=== PATIENT | female | born 1945 | race Caucasian/White ===

== ENCOUNTER 2017-12-21 19:53 | Inpatient (IN) | payer MEDICARE, OTHER ==
[2017-12-21 21:42] LABS: Glucose,Whole Blood 194 mg/dL (75-99)
[2017-12-21 22:06] VITALS: BMI 46.0
[2017-12-21] MEDS ORDERED: FUROSEMIDE 10 MG/ML 2 ML VIAL IV ONE (22:24)
[2017-12-21] MEDS: EZETIMIBE 10 MG TAB PO SCH (23:33)
[2017-12-22 06:02] LABS: Glucose,Whole Blood 179 mg/dL (75-99)
[2017-12-22] MEDS: METOPROLOL TARTRATE 50 MG TAB PO SCH ×3 (06:07→20:10)
[2017-12-22] MEDS: INSULIN DETEMIR 100 UNIT/ML 10 ML VIAL SQ SCH ×2 (06:07→22:49)
[2017-12-22] MEDS: INSULIN ASPART 100 UNIT/ML 1 ML 10 ML VIAL SQ SCH ×4 (06:41→22:49)
[2017-12-22] MEDS: EZETIMIBE 10 MG TAB PO SCH (08:38)
[2017-12-22 11:37] LABS: Glucose,Whole Blood 325 mg/dL (75-99)
[2017-12-22 11:44] LABS: Calcium 9.4 mg/dL (8.4-10.2); Potassium 5.5 mmol/L (3.5-5.1)
[2017-12-22 11:46] LABS: Basophils # (A) 0.1 k/uL (0-0.2); Basophils % (A) 1 %; Eosinophils # (A) 0.1 k/uL (0-0.7); Eosinophils % (A) 2 %; HCT 33.6 % (34.0-46.0); HGB 10.6 gm/dL (11.4-16.0); Hypochromasia Slight; Lymphocytes # (A) 0.9 k/uL (1.0-4.8); Lymphocytes % (A) 11 %; MCH 31.3 pg (25.0-35.0); MCHC 31.5 g/dL (31.0-37.0); MCV 99.3 fL (80.0-100.0); Macrocytosis Slight; Monocytes # (A) 0.6 k/uL (0-1.0); Monocytes % (A) 7 %; Neutrophils # (A) 6.3 k/uL (1.3-7.7); Neutrophils % (A) 78 %; Platelet Count 269 k/uL (150-450); RBC 3.38 m/uL (3.80-5.40); RDW 15.8 % (11.5-15.5); WBC 8.1 k/uL (3.8-10.6)
--- NOTE | 2017-12-22 13:02 | P.HPIM ---
History of Present Illness This is a pleasant 72 years old female with past medical history of CHF, atrial fibrillation, DM, DVT, CVA/TIA, GERD, hyperlipidemia, hypertension, OA, and renal disease, S/P pacemaker to presents because of syncope, this is the 4th time in a month, And yesterday when she was getting [place] from the [place] with her boyfriend at the door step she folds warmth and then she passed out briefly for 1 or 2 minutes, and she will call immediately with no confusion. During this time she denies any chest pain, shortness of breath, no dizziness, no palpitation, no seizure-like activity, no urine or bowel incontinence, no tongue biting. She had this episodes before and she's been prescribed meclizine by her PCP which was helping her as per patient. She sees Dr. Jake Connor from cardiology as an outpatient On admission patient was found to be in acute renal failure with creatinine 2.87 and hyperkalemia 5.5, hemoglobin 10.6, WBC 8.1, d-dimer at 0.9. Patient states she has kidney disease and she says it's is 4 which is questionable for stage IV. she says she goes to [facility]. We'll try to Get the records Review of Systems CONSTITUTIONAL: No fever, no malaise, no fatigue. HEENT: No recent visual problems or hearing problems. Denied any sore throat. CARDIOVASCULAR: No orthopnea, PND, no palpitations, no syncope. PULMONARY: No shortness of breath, no cough, no hemoptysis. GASTROINTESTINAL: No diarrhea, no nausea, no vomiting, no abdominal pain. Normoactive bowel sounds. NEUROLOGICAL: No headaches, no weakness, no numbness. HEMATOLOGICAL: Denies any bleeding or petechiae. GENITOURINARY: Denies any burning micturition, frequency, or urgency. MUSCULOSKELETAL/RHEUMATOLOGICAL: Denies any joint pain, swelling, or any muscle pain. ENDOCRINE: Denies any polyuria or polydipsia. Past Medical History Past Medical History: Atrial Fibrillation, Asthma, Heart Failure, CVA/TIA, Diabetes Mellitus, Deep Vein Thrombosis (DVT), Eye Disorder, GERD/Reflux, Hyperlipidemia, Hypertension, Osteoarthritis (OA), Renal Disease History of Any Multi-Drug Resistant Organisms: None Reported Past Surgical History: Adenoidectomy, Appendectomy, Cholecystectomy, Pacemaker, Tonsillectomy Past Anesthesia/Blood Transfusion Reactions: No Reported Reaction Type of Cardiac Device: Permanent Pacemaker Device Placement Date:: 2016 Past Psychological History: No Psychological Hx Reported Smoking Status: Never smoker Past Alcohol Use History: None Reported Past Drug Use History: None Reported - Past Family History Father Family Medical History: Myocardial Infarction ([place]) Additional Family Medical History / Comment(s): RHEUMATIC FEVER Medications and Allergies Home Medications Medication Instructions Recorded Confirmed Type Acetaminophen [Tylenol Extra 500 mg PO Q6HR PRN 12/22/17 12/22/17 History Strength] Apixaban [Eliquis] 5 mg PO BID 12/22/17 12/22/17 History Ascorbic Acid [Vitamin C] 500 mg PO DAILY 12/22/17 12/22/17 History Bumetanide [BUMEX] 0.5 mg PO DAILY 12/22/17 12/22/17 History Cholecalciferol [Vitamin D3] 1,000 unit PO DAILY 12/22/17 12/22/17 History Cinnamon Bark [Cinnamon] 500 mg PO BID 12/22/17 12/22/17 History Ezetimibe [Zetia] 10 mg PO HS 12/22/17 12/22/17 History Ferrous Sulfate [Feosol] 325 mg PO DAILY 12/22/17 12/22/17 History Fish Oil/Dha/Epa [Fish Oil 1,200 1 cap PO DAILY 12/22/17 12/22/17 History mg Fish Oil] Insulin Aspart [NovoLOG 22 unit SQ TID 12/22/17 12/22/17 History (formulary)] Insulin Detemir [Levemir] 50 unit SQ DAILY 12/22/17 12/22/17 History Meclizine HCl 25 mg PO DAILY 12/22/17 12/22/17 History Metoprolol Tartrate [Lopressor] 50 mg PO BID 12/22/17 12/22/17 History Multivitamin with Iron 1 tab PO DAILY 12/22/17 12/22/17 History [Multivitamins with Iron] Ranitidine HCl [Zantac] 150 mg PO BID 12/22/17 12/22/17 History Sevelamer [Renvela] 2,400 mg PO TID 12/22/17 12/22/17 History Vitamin E (Dl,Tocopheryl Acet) 400 unit PO DAILY 12/22/17 12/22/17 History [Vitamin E] traMADol HCl [Ultram] 50 mg PO Q12H PRN 12/22/17 12/22/17 History Allergies Allergy/AdvReac Type Severity Reaction Status Date / Time LISINOPRIL Allergy Unknown Uncoded 12/21/17 21:46 STATINS AdvReac Unknown Uncoded 12/21/17 21:46 Physical Exam Vitals: Vital Signs Temp Pulse Resp BP Pulse Ox 12/22/17 08:00 70 20 159/67 94 L 12/22/17 04:00 97.6 F 70 18 129/66 92 L 12/22/17 00:00 97.9 F 70 17 139/72 97 12/21/17 21:38 97.0 F L 69 18 174/73 98 Intake and Output 12/21/17 12/22/17 12/22/17 22:59 06:59 14:59 Output Total 200 400 Balance -200 -400 Output: Urine 200 400 Other: Voiding Method Urinal Urinal Weight 116.5 kg 116.5 kg GENERAL: The patient is alert and oriented x3, not in any acute distress. Well developed, well nourished. HEENT: Pupils are round and equally reacting to light. EOMI. No scleral icterus. No conjunctival pallor. Normocephalic, atraumatic. No pharyngeal erythema. No thyromegaly. CARDIOVASCULAR: S1 and S2 present. No murmurs, rubs, or gallops. PULMONARY: Chest is clear to auscultation, no wheezing or crackles. ABDOMEN: Soft, nontender, nondistended, normoactive bowel sounds. No palpable organomegaly. MUSCULOSKELETAL: No joint swelling or deformity. EXTREMITIES: No cyanosis, clubbing, or pedal edema. NEUROLOGICAL: Gross neurological examination did not reveal any focal deficits. SKIN: No rashes. Results CBC & Chem 7: 12/22/17 10:23 12/22/17 10:23 Labs: Abnormal Lab Results - Last 24 Hours (Table) 12/21/17 12/22/17 12/22/17 Range/Units 21:40 06:00 10:23 RBC (3.80-5.40) m/uL Hgb (11.4-16.0) gm/dL Hct (34.0-46.0) % RDW (11.5-15.5) % Lymphocytes # (1.0-4.8) k/uL D-Dimer 0.99 H (<0.60) mg/L FEU Potassium (3.5-5.1) mmol/L Carbon Dioxide (22-30) mmol/L BUN (7-17) mg/dL Creatinine (0.52-1.04) mg/dL Glucose (74-99) mg/dL POC Glucose (mg/dL) 194 H 179 H (75-99) mg/dL 12/22/17 12/22/17 12/22/17 Range/Units 10:23 10:23 11:35 RBC 3.38 L (3.80-5.40) m/uL Hgb 10.6 L (11.4-16.0) gm/dL Hct 33.6 L (34.0-46.0) % RDW 15.8 H (11.5-15.5) % Lymphocytes # 0.9 L (1.0-4.8) k/uL D-Dimer (<0.60) mg/L FEU Potassium 5.5 H (3.5-5.1) mmol/L Carbon Dioxide 20 L (22-30) mmol/L BUN 61 H (7-17) mg/dL Creatinine 2.87 H (0.52-1.04) mg/dL Glucose 308 H (74-99) mg/dL POC Glucose (mg/dL) 325 H (75-99) mg/dL Thrombosis Risk Factor Assmnt - Choose All That Apply Each Factor Represents 1 point: Obesity (BMI >25) Each Risk Factor Represents 2 Points: Age 61-74 years Each Risk Factor Represents 3 Points: History of DVT/PE Thrombosis Risk Factor Assessment Total Risk Factor Score: 6 Thrombosis Risk Factor Assessment Level: High Risk Assessment and Plan Plan: -Recurrent syncope, admitted to the general medical floor, we'll do workup with echo. Call cardiology consult, continue with telemetry -Acute renal phalanx with creatinine high 2.8, with hyperkalemia. Unknown baseline creatinine. We will start on IV fluids, sent for urine analysis give Kayexalate follow-up potassium level. Get the records from [facility]. Follow-up potassium level -Positive d-dimer and high at 0.9, we'll check for VQ scan in view of acute renal failure she is not a good candidate for CTPA. Also we'll check US of lower extremities. She is already on liquids 5 mg by mouth twice a day -Hyperlipidemia, continue same treatment -Hypertension continue with metoprolol and hold Bumex -DM continue with Levemir 50 units daily and NovoLog 22 units 3 times a day DVT prophylaxis she is already on liquids GI prophylaxis and Zantac At baseline patient uses a walker Prognosis is guarded given severity and complex comorbidity
[2017-12-22] MEDS ORDERED: SODIUM POLYSTYRENE SULFONATE 15 GM/60 ML BOTTLE PO STA (14:44)
--- NOTE | 2017-12-22 16:08 | US ---
EXAMINATION TYPE: US venous doppler duplex LE DATE OF EXAM: 12/22/2017 3:47 PM COMPARISON: NONE CLINICAL HISTORY: leg swelling; elevated d-dimer. SIDE PERFORMED: Bilateral TECHNIQUE: The lower extremity deep venous system is examined utilizing real time linear array sonog aliyah with graded compression, doppler sonography and color-flow sonography. VESSELS IMAGED: External Iliac Vein (EIV) Common Femoral Vein Deep Femoral Vein Greater Saphenous Vein * Femoral Vein Popliteal Vein Small Saphenous Vein * Proximal Calf Veins (* superficial vessels) patient did not tolerate compression images well, large patient body habitus. Right Leg: Negative for DVT Left Leg: Negative for DVT IMPRESSION: 1. Bilateral lower extremity ultrasound negative for deep venous thrombosis.
[2017-12-22 16:43] LABS: Glucose,Whole Blood 268 mg/dL (75-99)
[2017-12-22] MEDS ORDERED: ACETAMINOPHEN TAB 500 MG TAB PO PRN (18:36)
[2017-12-22] MEDS: HEPARIN SODIUM,PORCINE 5,000 UNIT/ML 1 ML VIAL SQ SCH (20:13)
[2017-12-22 21:15] LABS: Glucose,Whole Blood 247 mg/dL (75-99)
--- NOTE | 2017-12-22 21:29 | CONS ---
CONSULTATION Mrs. Ashish Paul is a 72-year-old lady with a history of hypertension, hypercholesterolemia, type 2 diabetes mellitus with chronic kidney disease, and also has history of a permanent pacemaker and the reason for the pacemaker is unclear. She sees Dr. Alvarado on a regular basis in the office. She came into the hospital with complaints of having an episode of syncope. Apparently her friend who was driving her in the car yesterday had her get down from the car and go to her house. She walked a few steps. She felt very warm, dizzy, lightheaded and then she could not move anymore. She did not really lose consciousness. Then EMS was called and she was brought into the hospital. It appears that after arrival all her symptoms have resolved. She is feeling comfortable. Denies any chest discomfort. Has no symptoms at all. At the time of my evaluation, she is resting comfortably and history is being provided by her boyfriend/ and the patient also volunteers information but she insists that she is feeling well and that she did not pass out yesterday, she just felt weak and tired. After she arrived to the hospital she had some laboratory data performed which revealed a low potassium but that was being supplemented. She also had a D-dimer that was elevated borderline at 0.9. She is resting comfortably without symptoms. PAST MEDICAL HISTORY: 1. She has history of underlying atrial fibrillation which is paroxysmal, takes Eliquis and she also has an underlying pacemaker. 2. History of type 2 diabetes with chronic CKD. 3. Hypertension. 4. Hyperlipidemia. 5. Osteoarthritis. CURRENT MEDICATIONS: Home medications include Eliquis 5 mg b.i.d. She takes Levemir and NovoLog insulin. She also takes some vitamin supplements, metoprolol 50 mg b.i.d., ranitidine and also takes some Zetia and tramadol. ALLERGIES: She is allergic to lisinopril and this is some allergy to statins. EXAMINATION: Blood pressure is 130/78, pulse rate is 70 per minute. She does not have any orthostatic changes. HEENT: Unremarkable. Fundus was not examined by me. NECK: Supple there is JVD of 1 cm. No carotid bruit. Heart exam reveals S1, S2. There is a short systolic murmur. No gallops. Lungs are clear. Abdomen is distended. Lower extremities reveal diminished pulses. No edema. Central nervous system is normal. EKG revealed what seems to be a paced rhythm. LABORATORY DATA: Reveals that her initial troponin is normal. D-dimer has been ordered and it came back at 0.9, which is moderate but not significant. Creatinine is 2.87. IMPRESSION: 1. Near syncopal spell, probably dehydration. 2. History of atrial fibrillation. 3. Sick sinus syndrome with a permanent pacemaker. 4. Hypertension. 5. Type 2 diabetes with chronic kidney disease. RECOMMENDATIONS: I am recommending that we discontinue Eliquis in view of the fact her renal function is quite abnormal. She is being considered for dialysis. I am recommending we will obtain a CBC, BMP, check an echocardiogram, place her on subcu heparin and based on clinical course, which will include a telemetry, I will make further recommendations and review the old chart. I discussed my thoughts in detail with the patient and her friend. Thank you very much for the consultation. MAYA / DAYAMI: [id number] /
[2017-12-23 06:09] LABS: Glucose,Whole Blood 192 mg/dL (75-99)
[2017-12-23] MEDS: INSULIN ASPART 100 UNIT/ML 1 ML 10 ML VIAL SQ SCH ×7 (06:55→21:38)
[2017-12-23] MEDS: SEVELAMER 800 MG TAB PO SCH ×3 (06:59→17:09)
[2017-12-23] MEDS: BUMETANIDE 0.5 MG TABLET PO SCH (09:23)
[2017-12-23] MEDS: EZETIMIBE 10 MG TAB PO SCH (09:23)
[2017-12-23] MEDS: MECLIZINE 25 MG TAB PO SCH (09:23)
[2017-12-23] MEDS: HEPARIN SODIUM,PORCINE 5,000 UNIT/ML 1 ML VIAL SQ SCH (09:23)
[2017-12-23] MEDS: METOPROLOL TARTRATE 50 MG TAB PO SCH ×2 (09:23→20:46)
[2017-12-23 11:43] LABS: Glucose,Whole Blood 77 mg/dL (75-99)
[2017-12-23] MEDS: FERROUS SULFATE 325 MG TAB PO SCH (12:53)
[2017-12-23] MEDS: CHOLECALCIFEROL 1,000 UNIT TAB PO SCH (12:53)
[2017-12-23 14:56] LABS: Basophils # (A) 0.1 k/uL (0-0.2); Basophils % (A) 1 %; Eosinophils # (A) 0.1 k/uL (0-0.7); Eosinophils % (A) 2 %; HCT 33.3 % (34.0-46.0); HGB 10.5 gm/dL (11.4-16.0); Hypochromasia Slight; Lymphocytes # (A) 1.1 k/uL (1.0-4.8); Lymphocytes % (A) 15 %; MCHC 31.7 g/dL (31.0-37.0); MCV 97.8 fL (80.0-100.0); Macrocytosis Slight; Mean Platelet Volume 6.6; Monocytes # (A) 0.5 k/uL (0-1.0); Monocytes % (A) 7 %; Neutrophils # (A) 5.2 k/uL (1.3-7.7); Neutrophils % (A) 72 %; Platelet Count 264 k/uL (150-450); RDW 15.9 % (11.5-15.5); WBC 7.1 k/uL (3.8-10.6)
[2017-12-23 15:08] LABS: Calcium 9.2 mg/dL (8.4-10.2); Potassium 4.6 mmol/L (3.5-5.1)
--- NOTE | 2017-12-23 16:18 | PN ---
PROGRESS NOTE Mrs. Paul is feeling better today. She has no further episodes of dizziness or syncope. She remains in a paced rhythm. Vital signs are stable. There is JVD of 1 cm note. S1-S2 are heard normally. Short systolic murmur noted. Lungs are clear. Lower extremities revealed bilateral mild edema. Central nervous system is normal. Plan is to increase activity and if she does well, we can discharge her. We have to check her potassium level since there was some hyperkalemia issues yesterday. I am recommending that we check the potassium level and if this is good, we can increase activity and then plan for discharge in the next 24 hours. I discussed my thoughts in detail with the patient and her friend who was here. OVIL / IJN: [id number] /
[2017-12-23 16:58] LABS: Glucose,Whole Blood 183 mg/dL (75-99)
[2017-12-23] MEDS: ELIQUIS 2.5 MG PO SCH (20:46)
[2017-12-23 21:26] LABS: Glucose,Whole Blood 245 mg/dL (75-99)
[2017-12-23] MEDS: INSULIN DETEMIR 100 UNIT/ML 10 ML VIAL SQ SCH (21:38)
--- NOTE | 2017-12-23 21:57 | P.PN ---
Subjective This is a pleasant 72 years old female with past medical history of CHF, atrial fibrillation, DM, DVT, CVA/TIA, GERD, hyperlipidemia, hypertension, OA, and renal disease, S/P pacemaker to presents because of syncope, this is the 4th time in a month, And [place] & at the door step she felt warmth and then she passed out briefly for 1 or 2 minutes, and she wake up immediately with no confusion. During this time she denies any chest pain, shortness of breath, no dizziness, no palpitation, no seizure-like activity, no urine or bowel incontinence, no tongue biting. She had this episodes before and she's been prescribed meclizine by her PCP which was helping her as per patient. She sees Dr. Jake Connor from cardiology as an outpatient On admission patient was found to be in acute renal failure with creatinine 2.87 and hyperkalemia 5.5, hemoglobin 10.6, WBC 8.1, d-dimer at 0.9. Patient states she has kidney disease and she says it's is 4 which is questionable for stage IV. she says she goes to [facility]. We'll try to Get the records 12/23/2017 pt is lying in bed with no not in distress, work up for syncope is still ongoing however no more episodes of syncope or near-syncope, pt has positive D- Dimer on presentation however she is already on Eliquis her dose is adjusted as per renal function , doppler of LE is negative for DVT. renal function is not improving , could be possible CKD, advanced stage , discussed with staff to get records from [facility] ROS CONSTITUTIONAL: No fever, no malaise, no fatigue. HEENT: No recent visual problems or hearing problems. Denied any sore throat. CARDIOVASCULAR: No orthopnea, PND, no palpitations, no syncope. PULMONARY: No shortness of breath, no cough, no hemoptysis. GASTROINTESTINAL: No diarrhea, no nausea, no vomiting, no abdominal pain. Normoactive bowel sounds. NEUROLOGICAL: No headaches, no weakness, no numbness. HEMATOLOGICAL: Denies any bleeding or petechiae. GENITOURINARY: Denies any burning micturition, frequency, or urgency. MUSCULOSKELETAL/RHEUMATOLOGICAL: Denies any joint pain, swelling, or any muscle pain. ENDOCRINE: Denies any polyuria or polydipsia. Objective - Vital Signs Vital signs: Vital Signs Temp 96.9 F L 12/23/17 15:57 Pulse 70 12/23/17 15:57 Resp 18 12/23/17 15:57 BP 163/79 12/23/17 15:57 Pulse Ox 93 L 12/23/17 15:57 Intake & Output 12/23/17 12/23/17 12/24/17 06:59 18:59 06:59 Intake Total 1320 Output Total 200 Balance 1120 Weight 116.2 kg Intake: Oral 1320 Output: Urine 200 Other: Voiding Method Urinal Urinal # Voids 2 1 - Exam GENERAL: The patient is alert and oriented x3, not in any acute distress. Well developed, well nourished. HEENT: Pupils are round and equally reacting to light. EOMI. No scleral icterus. No conjunctival pallor. Normocephalic, atraumatic. No pharyngeal erythema. No thyromegaly. CARDIOVASCULAR: S1 and S2 present. No murmurs, rubs, or gallops. PULMONARY: Chest is clear to auscultation, no wheezing or crackles. ABDOMEN: Soft, nontender, nondistended, normoactive bowel sounds. No palpable organomegaly. MUSCULOSKELETAL: No joint swelling or deformity. EXTREMITIES: No cyanosis, clubbing, or pedal edema. NEUROLOGICAL: Gross neurological examination did not reveal any focal deficits. SKIN: No rashes. - Labs CBC & Chem 7: 12/23/17 14:44 12/23/17 14:44 Labs: Abnormal Lab Results - Last 24 Hours (Table) 12/23/17 12/23/17 12/23/17 Range/Units 06:05 14:44 14:44 RBC 3.40 L (3.80-5.40) m/uL Hgb 10.5 L (11.4-16.0) gm/dL Hct 33.3 L (34.0-46.0) % RDW 15.9 H (11.5-15.5) % Carbon Dioxide 21 L (22-30) mmol/L BUN 58 H (7-17) mg/dL Creatinine 2.60 H (0.52-1.04) mg/dL Glucose 134 H (74-99) mg/dL POC Glucose (mg/dL) 192 H (75-99) mg/dL 12/23/17 Range/Units 16:54 RBC (3.80-5.40) m/uL Hgb (11.4-16.0) gm/dL Hct (34.0-46.0) % RDW (11.5-15.5) % Carbon Dioxide (22-30) mmol/L BUN (7-17) mg/dL Creatinine (0.52-1.04) mg/dL Glucose (74-99) mg/dL POC Glucose (mg/dL) 183 H (75-99) mg/dL Assessment and Plan Plan: -Recurrent syncope, admitted to the general medical floor, we'll do workup with echo. Call cardiology consult, continue with telemetry -Acute renal failure vs advanced CKD with creatinine high 2.8, with hyperkalemia (resolved). Unknown baseline creatinine. sent for urine analysis give Kayexalate follow-up potassium level. Get the records from [facility]. Follow-up potassium level -Positive d-dimer and high at 0.9, US of lower extremities: no DVT She is already on liquids 5 mg adjusted to 2.5 mg by mouth twice a day as per renal function -Hyperlipidemia, continue same treatment -Hypertension continue with metoprolol and hold Bumex -DM continue with Levemir 50 units daily and NovoLog 22 units 3 times a day DVT prophylaxis she is already on liquids GI prophylaxis and Zantac At baseline patient uses a walker Prognosis is guarded given severity and complex comorbidity
[2017-12-24 01:00] LABS: Appearance,Urine Cloudy (Clear); Bilirubin,Urine Negative (Negative); Blood,Urine Small (Negative); Color,Urine Light Yellow; Glucose,Urine (UA) 3+ (Negative); Hyaline Casts,Urine 1 /lpf (0-2); Ketones,Urine Negative (Negative); Leukocyte Esterase,Urine Large (Negative); Mucus,Urine Rare /hpf; Nitrite,Urine Negative (Negative); Protein,Urine 2+ (Negative); RBC,Urine 11 /hpf (0-5); Specific Gravity,Urine 1.009 (1.001-1.035); Squamous Epithelial Cell,Urine <1 /hpf (0-4); Urobilinogen,Urine <2.0 mg/dL (<2.0); WBC,Urine >182 /hpf (0-5)
[2017-12-24 05:58] LABS: Basophils % (A) 1 %; Eosinophils # (A) 0.2 k/uL (0-0.7); Eosinophils % (A) 2 %; HGB 10.1 gm/dL (11.4-16.0); Lymphocytes # (A) 1.2 k/uL (1.0-4.8); Lymphocytes % (A) 18 %; MCH 30.7 pg (25.0-35.0); MCHC 31.5 g/dL (31.0-37.0); MCV 97.3 fL (80.0-100.0); Macrocytosis Slight; Mean Platelet Volume 6.8; Monocytes # (A) 0.6 k/uL (0-1.0); Monocytes % (A) 9 %; Neutrophils # (A) 4.7 k/uL (1.3-7.7); Neutrophils % (A) 69 %; Platelet Count 257 k/uL (150-450); RBC 3.29 m/uL (3.80-5.40); RDW 15.9 % (11.5-15.5); WBC 6.9 k/uL (3.8-10.6)
[2017-12-24 06:06] LABS: Glucose,Whole Blood 161 mg/dL (75-99)
[2017-12-24 06:11] LABS: Calcium 9.2 mg/dL (8.4-10.2); Potassium 4.4 mmol/L (3.5-5.1)
[2017-12-24] MEDS: SEVELAMER 800 MG TAB PO SCH ×2 (06:36→12:14)
[2017-12-24] MEDS: INSULIN ASPART 100 UNIT/ML 1 ML 10 ML VIAL SQ SCH ×4 (07:02→12:05)
[2017-12-24] MEDS: EZETIMIBE 10 MG TAB PO SCH (08:07)
[2017-12-24] MEDS: BUMETANIDE 0.5 MG TABLET PO SCH (08:07)
[2017-12-24] MEDS: FERROUS SULFATE 325 MG TAB PO SCH (08:07)
[2017-12-24] MEDS: MECLIZINE 25 MG TAB PO SCH (08:08)
[2017-12-24] MEDS: CHOLECALCIFEROL 1,000 UNIT TAB PO SCH (08:08)
[2017-12-24] MEDS: ELIQUIS 2.5 MG PO SCH (08:08)
[2017-12-24] MEDS: METOPROLOL TARTRATE 50 MG TAB PO SCH (08:08)
[2017-12-24 08:30] VITALS: RESP 18; TEMP 97.5
--- NOTE | 2017-12-24 09:37 | P.NPCON ---
History of Present Illness - Reason for Consult chronic renal failure - History of Present Illness Reason for consultation: Chronic kidney disease History of present illness: Patient is a 72-year-old female seen in renal consultation for chronic kidney disease. Patient has chronic kidney disease stage IV secondary to diabetic kidney disease. Unclear as to what her baseline creatinine is. It has been stable in the range of 2.6-2.8 this admission. Patient follows with a aeronautical design engineer out of [place], [place]. Patient presented to the hospital due to a syncopal episode. Patient states she was in a parking lot and felt quite lightheaded and dizzy. Patient states she did lose her consciousness but didn' t fall as her boyfriend caught her. She was subsequently brought to the hospital. Her blood pressures have been stable. She is maintained on Bumex 0.5 mg daily. She denies any hematuria or dysuria. Admits to good urine output. Oral intake is good. No vomiting or diarrhea. Denies use of NSAIDs. Patient did ambulate this morning and denied any lightheadedness or dizziness. She's feeling better today. Feels she got dehydrated due to heat outside. Vital signs are stable. General: The patient appeared well nourished and normally developed. HEENT: Head exam is unremarkable. Neck is without jugular venous distension. LUNGS: Lungs are clear to auscultation and percussion. Breath sounds decreased. HEART: Rate and Rhythm are regular. First and second heart sounds normal. No murmurs, rubs or gallops. ABDOMEN: Abdominal exam reveals normal bowel sounds. Non-tender and non- distended. No evidence of peritonitis. EXTREMITITES: No clubbing, cyanosis, or edema. Past Medical History Past Medical History: Atrial Fibrillation, Asthma, Heart Failure, CVA/TIA, Diabetes Mellitus, Deep Vein Thrombosis (DVT), Eye Disorder, GERD/Reflux, Hyperlipidemia, Hypertension, Osteoarthritis (OA), Renal Disease History of Any Multi-Drug Resistant Organisms: None Reported Past Surgical History: Adenoidectomy, Appendectomy, Cholecystectomy, Pacemaker, Tonsillectomy Past Anesthesia/Blood Transfusion Reactions: No Reported Reaction Type of Cardiac Device: Permanent Pacemaker Device Placement Date:: 2016 Past Psychological History: No Psychological Hx Reported Smoking Status: Never smoker Past Alcohol Use History: None Reported Past Drug Use History: None Reported - Past Family History Father Family Medical History: Myocardial Infarction ([place]) Additional Family Medical History / Comment(s): RHEUMATIC FEVER Medications and Allergies Home Medications Medication Instructions Recorded Confirmed Type Acetaminophen [Tylenol Extra 500 mg PO Q6HR PRN 12/22/17 12/22/17 History Strength] Apixaban [Eliquis] 5 mg PO BID 12/22/17 12/22/17 History Ascorbic Acid [Vitamin C] 500 mg PO DAILY 12/22/17 12/22/17 History Bumetanide [BUMEX] 0.5 mg PO DAILY 12/22/17 12/22/17 History Cholecalciferol [Vitamin D3] 1,000 unit PO DAILY 12/22/17 12/22/17 History Cinnamon Bark [Cinnamon] 500 mg PO BID 12/22/17 12/22/17 History Ezetimibe [Zetia] 10 mg PO HS 12/22/17 12/22/17 History Ferrous Sulfate [Feosol] 325 mg PO DAILY 12/22/17 12/22/17 History Fish Oil/Dha/Epa [Fish Oil 1,200 1 cap PO DAILY 12/22/17 12/22/17 History mg Fish Oil] Insulin Aspart [NovoLOG 22 unit SQ TID 12/22/17 12/22/17 History (formulary)] Insulin Detemir [Levemir] 50 unit SQ DAILY 12/22/17 12/22/17 History Meclizine HCl 25 mg PO DAILY 12/22/17 12/22/17 History Metoprolol Tartrate [Lopressor] 50 mg PO BID 12/22/17 12/22/17 History Multivitamin with Iron 1 tab PO DAILY 12/22/17 12/22/17 History [Multivitamins with Iron] Ranitidine HCl [Zantac] 150 mg PO BID 12/22/17 12/22/17 History Sevelamer [Renvela] 2,400 mg PO TID 12/22/17 12/22/17 History Vitamin E (Dl,Tocopheryl Acet) 400 unit PO DAILY 12/22/17 12/22/17 History [Vitamin E] traMADol HCl [Ultram] 50 mg PO Q12H PRN 12/22/17 12/22/17 History Allergies Allergy/AdvReac Type Severity Reaction Status Date / Time LISINOPRIL Allergy Unknown Uncoded 12/21/17 21:46 STATINS AdvReac Unknown Uncoded 12/21/17 21:46 Physical Exam Vitals: Vital Signs Temp Pulse Resp BP Pulse Ox 12/24/17 08:20 95 12/24/17 08:08 97.5 F L 70 18 125/64 95 12/24/17 03:50 70 16 12/24/17 03:49 97.0 F L 70 16 131/64 95 12/24/17 00:00 97.3 F L 71 16 124/67 92 L 12/23/17 20:00 97.0 F L 70 19 140/67 92 L 12/23/17 15:57 96.9 F L 70 18 163/79 93 L 12/23/17 12:00 68 20 141/70 93 L Intake and Output 12/23/17 12/24/17 12/24/17 22:59 06:59 14:59 Intake Total 480 120 Output Total 250 350 Balance 230 -350 120 Intake: Oral 480 120 Output: Urine 250 350 Other: Voiding Method Toilet Toilet Toilet # Voids 1 1 Weight 114.9 kg Results - Lab Results Most recent lab results Calcium 9.2 mg/dL (8.4-10.2) 12/24/17 05:38 12/24/17 05:38 12/24/17 05:38 Assessment and Plan Plan: Assessment: 1. Chronic kidney disease stage IV secondary to diabetic kidney disease. Unknown baseline creatinine. Currently stable in the range of 2.6-2.8. 2. Insulin-dependent diabetes mellitus. 3. Chronic kidney disease mineral bone disease maintained on Renvela. 4. Hyperkalemia on admission. Now resolved. 5. Anemia of chronic kidney disease. Hemoglobin at goal. 6. Syncope likely related to dehydration. No evidence of hypotension. Appears euvolemic at this time. Plan: Maintain Bumex 0.5 mg once daily. Check urine culture. Avoid nephrotoxic agents and hypotensive episodes. Anticipate discharge soon. She will need to follow-up with her aeronautical design engineer as an outpatient in the next 1-2 weeks. No urgent need for renal replacement therapy at this time. Thank you for the consultation. I will continue to follow the patient with you during her hospital stay.
[2017-12-24 11:55] VITALS: BP 114/62; PULSE 64
[2017-12-24 12:09] LABS: Glucose,Whole Blood 83 mg/dL (75-99)
--- NOTE | 2017-12-24 16:50 | P.DS ---
Providers Date of admission: 12/21/17 21:28 Attending physician: Yunier Pino Consults: 12/21/17 23:35 Consult Physician Routine Consulting Provider: Rodney Alvarado Consult Reason/Comments: CHF Do you want consulting provider notified?: Yes, Notify in am 12/24/17 07:53 Consult Physician Routine Consulting Provider: Elo Archer Consult Reason/Comments: CKD Do you want consulting provider notified?: Yes Primary care physician: Marc [facility] Course: Patient came in with near syncopal episode found to have noncardiac pulmonary edema probably secondary to kidney dysfunction patient was evaluated by cardiology and nephrology. They're recommending Bumex to be continued at present dose patient pulmonary edema appears to have improved respiratory status improved. Patient does have history of atrial fibrillation on Eliquis is presently being discontinued as recommended by cardiology because of falls and poor renal function and they're recommending 81 mg of aspirin. PT and OT evaluated the patient and there is no recommendation for subacute rehabilitation placement from their perspective. Patient blood sugars are coming down because of which I'm changing the insulin dosing appears to have been noncompliant with medication recommendation because of which I believe she will benefit from home care and the patient is agreeable, will set up home care for her. Exam GENERAL: The patient is alert and oriented x3, not in any acute distress. Well developed, well nourished. HEENT: Pupils are round and equally reacting to light. EOMI. No scleral icterus. No conjunctival pallor. Normocephalic, atraumatic. No pharyngeal erythema. No thyromegaly. CARDIOVASCULAR: S1 and S2 present. No murmurs, rubs, or gallops. PULMONARY: Chest is clear to auscultation, no wheezing or crackles. ABDOMEN: Soft, nontender, nondistended, normoactive bowel sounds. No palpable organomegaly. MUSCULOSKELETAL: No joint swelling or deformity. EXTREMITIES: No cyanosis, clubbing, or pedal edema. NEUROLOGICAL: Gross neurological examination did not reveal any focal deficits. SKIN: No rashes. Assessment and Plan Plan: -Near syncopal episode,: Work up and management as mentioned above -Chronic kidney disease stage IV -Positive d-dimer and high at 0.9, US of lower extremities: no DVT -Hyperlipidemia, continue same treatment -Hypertension continue with metoprolol and hold Bumex -DM type II management as mentioned above Patient Condition at Discharge: Stable Plan - Discharge Summary New Discharge Prescriptions: New Aspirin 81 mg PO DAILY #30 chewable Continue Ezetimibe [Zetia] 10 mg PO HS traMADol HCl [Ultram] 50 mg PO Q12H PRN PRN Reason: Pain Vitamin E (Dl,Tocopheryl Acet) [Vitamin E] 400 unit PO DAILY Sevelamer [Renvela] 2,400 mg PO TID Ranitidine HCl [Zantac] 150 mg PO BID Cholecalciferol [Vitamin D3] 1,000 unit PO DAILY Ascorbic Acid [Vitamin C] 500 mg PO DAILY Multivitamin with Iron [Multivitamins with Iron] 1 tab PO DAILY Fish Oil/Dha/Epa [Fish Oil 1,200 mg Fish Oil] 1 cap PO DAILY Metoprolol Tartrate [Lopressor] 50 mg PO BID Meclizine HCl 25 mg PO DAILY Ferrous Sulfate [Iron (65 MG Elemental)] 325 mg PO DAILY Cinnamon Bark [Cinnamon] 500 mg PO BID Bumetanide [BUMEX] 0.5 mg PO DAILY Acetaminophen [Tylenol Extra Strength] 500 mg PO Q6HR PRN PRN Reason: Pain Changed Insulin Aspart [NovoLOG (formulary)] 15 unit SQ TID #0 Insulin Detemir [Levemir] 40 unit SQ DAILY #0 Discontinued Apixaban [Eliquis] 5 mg PO BID Discharge Medication List Acetaminophen [Tylenol Extra Strength] 500 mg PO Q6HR PRN 12/22/17 [History] Ascorbic Acid [Vitamin C] 500 mg PO DAILY 12/22/17 [History] Bumetanide [BUMEX] 0.5 mg PO DAILY 12/22/17 [History] Cholecalciferol [Vitamin D3] 1,000 unit PO DAILY 12/22/17 [History] Cinnamon Bark [Cinnamon] 500 mg PO BID 12/22/17 [History] Ezetimibe [Zetia] 10 mg PO HS 12/22/17 [History] Ferrous Sulfate [Iron (65 MG Elemental)] 325 mg PO DAILY 12/22/17 [History] Fish Oil/Dha/Epa [Fish Oil 1,200 mg Fish Oil] 1 cap PO DAILY 12/22/17 [History] Meclizine HCl 25 mg PO DAILY 12/22/17 [History] Metoprolol Tartrate [Lopressor] 50 mg PO BID 12/22/17 [History] Multivitamin with Iron [Multivitamins with Iron] 1 tab PO DAILY 12/22/17 [ History] Ranitidine HCl [Zantac] 150 mg PO BID 12/22/17 [History] Sevelamer [Renvela] 2,400 mg PO TID 12/22/17 [History] Vitamin E (Dl,Tocopheryl Acet) [Vitamin E] 400 unit PO DAILY 12/22/17 [History] traMADol HCl [Ultram] 50 mg PO Q12H PRN 12/22/17 [History] Aspirin 81 mg PO DAILY #30 chewable 12/24/17 [Rx] Insulin Aspart [NovoLOG (formulary)] 15 unit SQ TID #0 12/24/17 [Rx] Insulin Detemir [Levemir] 40 unit SQ DAILY #0 12/24/17 [Rx] Follow up Appointment(s)/Referral(s): Marc Avitia MD [Primary Care Provider] - 12/30/17 9:00 am () Nonstaff,Physician [REFERRING] - 1 Week (Dr. Delgado scientific process operator. [phone]. Message left for Rukhsana at office to call you at home. ) Rodney Alvarado MD [STAFF PHYSICIAN] - 01/09/18 3:30 pm Patient Instructions/Handouts: Chronic Kidney Disease (DC), Potassium Content of Foods List (DC), Chronic Kidney Disease Diet (DC), Syncope (DC) Discharge Disposition: HOME WITH HOME HEALTH SERVICES
--- NOTE | 2017-12-24 23:24 | CONS ---
CONSULTATION Mrs. Paul is in a paced rhythm with underlying atrial fibrillation. She is comfortable, doing better today. She has had a fall and had a significant scalp injury about 2 weeks ago. She also has renal failure with elevated creatinine of more than 2.5. Given this, I am recommending we discontinue her blood thinners altogether and therefore I will stop Eliquis altogether and she will follow up with Dr. Alvarado in [place] and we will make a further decision at that point. Patient is unsteady on her feet. She is a fall risk. She has actually fallen and has had prolonged bleeding from her scalp injury. I discussed this with the patient and her boyfriend. We will therefore discontinue Eliquis. Vital signs are stable. S1, S2 heard normally. Short systolic murmur noted. Lungs are clear. Her abdomen and lower extremities unchanged. Patient can be discharged today. MMODL / IJN: [id number] /
== END 2017-12-24 13:30 | disposition home health service (06) | DRG 683 ==
LOC: 6SEL 21:28
PROVIDERS: ADMIT Internal Medicine; ATTEND Internal Medicine
DX: N17.9 Acute kidney failure, unspecified (principal); I13.0 Hypertensive heart and chronic kidney disease with heart failure and stage 1 through stage 4 chronic kidney disease, or unspecified chronic kidney disease; D63.1 Anemia in chronic kidney disease; E11.22 Type 2 diabetes mellitus with diabetic chronic kidney disease; E78.00 Pure hypercholesterolemia, unspecified; E78.5 Hyperlipidemia, unspecified; E86.0 Dehydration; E87.5 Hyperkalemia; I48.91 Unspecified atrial fibrillation; I50.9 Heart failure, unspecified; J45.909 Unspecified asthma, uncomplicated; K21.9 Gastro-esophageal reflux disease without esophagitis; N18.4 Chronic kidney disease, stage 4 (severe); Z79.01 Long term (current) use of anticoagulants; Z79.4 Long term (current) use of insulin; Z82.49 Family history of ischemic heart disease and other diseases of the circulatory system; Z86.73 Personal history of transient ischemic attack (TIA), and cerebral infarction without residual deficits; Z91.14 Patient's other noncompliance with medication regimen; Z91.81 History of falling; Z95.0 Presence of cardiac pacemaker; M19.90 Unspecified osteoarthritis, unspecified site; Z90.49 Acquired absence of other specified parts of digestive tract; Z79.899 Other long term (current) drug therapy; Z88.8 Allergy status to other drugs, medicaments and biological substances
CPT/HCPCS: 80048; 81001; 85025; 85379; 93970; 94760

== ENCOUNTER 2018-07-27 22:29 | Inpatient (IN) | payer MEDICARE, OTHER ==
[2018-07-27 23:37] LABS: Anisocytosis Slight; Basophils # (A) 0.1 k/uL (0-0.2); Basophils % (A) 1 %; Eosinophils # (A) 0.1 k/uL (0-0.7); Eosinophils % (A) 0 %; HCT 36.3 % (34.0-46.0); HGB 10.8 gm/dL (11.4-16.0); Hypochromasia Moderate; Lymphocytes # (A) 0.9 k/uL (1.0-4.8); Lymphocytes % (A) 8 %; MCH 29.2 pg (25.0-35.0); MCHC 29.7 g/dL (31.0-37.0); MCV 98.3 fL (80.0-100.0); Macrocytosis Slight; Mean Platelet Volume 6.8; Monocytes % (A) 10 %; Neutrophils # (A) 8.2 k/uL (1.3-7.7); Neutrophils % (A) 79 %; Platelet Count 391 k/uL (150-450); RBC 3.69 m/uL (3.80-5.40); WBC 10.5 k/uL (3.8-10.6)
[2018-07-27 23:53] LABS: Albumin 3.5 g/dL (3.5-5.0); Calcium 10.3 mg/dL (8.4-10.2); Magnesium 2.3 mg/dL (1.6-2.3); Potassium 5.3 mmol/L (3.5-5.1); Total Bilirubin 1.1 mg/dL (0.2-1.3); Total Protein 6.5 g/dL (6.3-8.2)
[2018-07-27 23:54] LABS: Partial Thromboplastin Time 20.8 sec (22.0-30.0)
[2018-07-27 23:57] LABS: Creatine Kinase <20 U/L (30-135)
[2018-07-28 00:35] LABS: Troponin I 0.035 ng/mL (0.000-0.034)
--- NOTE | 2018-07-28 02:43 | ED ---
Chest Pain HPI - General Chief Complaint: Chest Pain Stated Complaint: Cardiac Transfer Time Seen by Provider: 07/27/18 22:34 Source: patient Mode of arrival: ambulatory Limitations: physical limitation - History of Present Illness Initial Comments: Ashish is a 73-year-old female with a history of heart failure who presents to the emergency department today as a transfer from an outside facility for evaluation of heart failure and elevated troponin. Patient reports that earlier in the day she began to feel very short of breath and lightheaded. She called 911. EMS reports that the patient was hypoxic upon their arrival with oxygen saturation in the 70s to 80s. She was placed on supplemental oxygen transferred to the outside facility where a thorough workup included labs, EKG, chest x-ray as well as a head CT for evaluation of the dizziness. Workup at the outside facility revealed that the patient appeared to be in acute decompensated heart failure with right-sided pleural effusions, hypoxia increased work of breathing elevated BNP and an elevated troponin. Troponin was only mildly elevated this could've been a type II in STEMI secondary to asthma Tory distress a decision was made to hold heparin but transfer to our facility for further monitoring and admission. Patient had a Hsu catheter placed and was given Lasix outside facility. Upon arrival at our facility patient reports she is feeling much better, her shortness of breath has improved significantly, her work of breathing is improved significantly. She's been urinating quite a bit. Patient reports she' s not certain if she still feels lightheaded She hasn't attempted to stand since arriving at the outside facility. - Related Data Home Medications Medication Instructions Recorded Confirmed Bumetanide [BUMEX] 0.5 mg PO DAILY 12/22/17 07/27/18 Cholecalciferol [Vitamin D3] 1,000 unit PO DAILY 12/22/17 07/27/18 Ezetimibe [Zetia] 10 mg PO HS 12/22/17 07/27/18 Meclizine HCl 25 mg PO DAILY 12/22/17 07/27/18 Metoprolol Tartrate [Lopressor] 50 mg PO BID 12/22/17 07/27/18 Ranitidine HCl [Zantac] 150 mg PO BID 12/22/17 07/27/18 Albuterol Inhaler [Ventolin Hfa 2 puff INHALATION RT-Q6H 07/27/18 07/27/18 Inhaler] Exenatide Microspheres [Bydureon 2 mg SQ WEEKLY 07/27/18 07/27/18 Pen] Loratadine [Claritin] 10 mg PO DAILY 07/27/18 07/27/18 Pioglitazone [Actos] 15 mg PO DAILY 07/27/18 07/27/18 Sevelamer [Renvela] 800 mg PO TID 07/27/18 07/27/18 Previous Rx's Medication Instructions Recorded Aspirin 81 mg PO DAILY #30 chewable 12/24/17 Allergies Allergy/AdvReac Type Severity Reaction Status Date / Time LISINOPRIL Allergy Unknown Uncoded 07/27/18 22:44 STATINS AdvReac Unknown Uncoded 07/27/18 22:44 Review of Systems ROS Statement: Those systems with pertinent positive or pertinent negative responses have been documented in the HPI. ROS Other: All systems not noted in ROS Statement are negative. EKG Findings - EKG Comments: EKG Findings:: EKG obtained at 10:45 PM, rate is 70 rhythm is that of ventricular paced rhythm. No acute ST elevations or depressions. When EKG was compared to previous obtained at the outside hospital there is no acute changes Past Medical History Past Medical History: Atrial Fibrillation, Asthma, Heart Failure, CVA/TIA, Diabetes Mellitus, Deep Vein Thrombosis (DVT), Eye Disorder, GERD/Reflux, Hyperlipidemia, Hypertension, Osteoarthritis (OA), Renal Disease History of Any Multi-Drug Resistant Organisms: None Reported Past Surgical History: Adenoidectomy, Appendectomy, Cholecystectomy, Pacemaker, Tonsillectomy Past Anesthesia/Blood Transfusion Reactions: No Reported Reaction Type of Cardiac Device: Permanent Pacemaker Device Placement Date:: 2016 Past Psychological History: No Psychological Hx Reported Smoking Status: Never smoker Past Alcohol Use History: None Reported Past Drug Use History: None Reported - Past Family History Father Family Medical History: Myocardial Infarction (ND) Additional Family Medical History / Comment(s): RHEUMATIC FEVER General Exam - General Exam Comments Initial Comments: Physical Exam GENERAL: Elderly female HENT: Normocephalic, Atraumatic. EYES: PERRL, EOMI PULMONARY: Crackles at bases CARDIOVASCULAR: There is a regular rate and rhythm without any murmurs gallops or rubs. Pacemaker in place and left upper chest ABDOMEN: Soft and nontender with normal bowel sounds. SKIN: Skin is clear with no lesions or rashes and otherwise unremarkable. : Normal external genitalia, Hsu catheter in place NEUROLOGIC: Patient is alert and oriented x3. Moving all extremities spontaneously MUSCULOSKELETAL: 2+ pitting edema bilateral lower extremities PSYCHIATRIC: Normal psychiatric evaluation. Limitations: no limitations Limitations: physical limitation Course Vital Signs 07/27/18 07/27/18 07/28/18 22:37 23:18 00:41 Temperature 97.8 F Pulse Rate 70 71 Pulse Rate [ 71 Physician Coding Specialist ] Respiratory 17 24 22 Rate Blood Pressure 161/77 166/99 O2 Sat by Pulse 96 98 Oximetry 07/28/18 02:00 Temperature Pulse Rate 70 Pulse Rate [ Physician Coding Specialist ] Respiratory 12 Rate Blood Pressure 164/79 O2 Sat by Pulse 99 Oximetry Chest Pain MDM - MDM The patient was seen and evaluated, history was obtained from the patient and review of outside medical record. Patient with CHF exacerbation mild elevation of troponin. Patient was hypoxic at outside facility this is improved patient is now on supplement oxygen via nasal cannula, she does not wear oxygen at home. Repeat labs were ordered Troponin is trending down At this time I will plan to admit the patient for CHF exacerbation, type II insulin with elevated troponin, hypoxia which is resolved and a daily cocktail heart failure. Patient care was discussed with Dr. Roberto who accepts the admission and was at bedside to evaluate the patient. Disposition Clinical Impression: NSTEMI (non-ST elevated myocardial infarction), Acute decompensated heart failure, Pleural effusion, Hypoxia Disposition: ADMITTED IP TO THIS HOSP Condition: Serious Referrals: Marc Avitia MD [Primary Care Provider] - 1-2 days
[2018-07-28] MEDS: FUROSEMIDE 10 MG/ML 4 ML VIAL IV SCH ×3 (03:22→19:49)
[2018-07-28] MEDS: ALBUTEROL NEBULIZED 2.5 MG/3 ML INHALATION SCH ×4 (03:44→20:29)
--- NOTE | 2018-07-28 07:19 | HP ---
HISTORY AND PHYSICAL DATE OF SERVICE: 07/27/2018 CHIEF COMPLAINTS: Shortness of breath. HISTORY OF PRESENT ILLNESS: This 73-year-old woman with a past medical history of multiple medical problems including chronic renal failure stage IV, atrial fibrillation, asthma, CHF, diabetes type 2, hypertension, hyperlipidemia, DJD being followed by Dr. Avitia in the outpatient setting was recently admitted with near-syncope. Currently the patient is complaining of shortness of breath and patient was taken to [facility] and the patient was given Lasix. The patient diuresing well at this time. The patient was subsequently transferred to [facility] and admitted for further evaluation and treatment. There is no history of any fever, rigors or chills. No history of headache, loss of consciousness or seizures at this time. Hemoglobin is 10.8 and creatinine is found to be 3.32. The baseline creatinine is around 2.7. Troponin found to be 0.035. NT proBNP is 15,300. PAST MEDICAL HISTORY: History of CAD, history of CHF, history of asthma, atrial fibrillation, CVA, TIA , diabetes, history of DVT, history of GERD, hypertension and hyperlipidemia. MEDICATIONS: Prior to admission include home medications are: 1. Renvela 800 mg p.o. t.i.d. 2. Zantac 150 mg p.o. b.i.d. 3. Actos 15 mg p.o. daily. 4. Lopressor 50 mg p.o. b.i.d. 5. Meclizine 25 mg. 6. Claritin 10 mg. 7. Zetia 10 mg q.h.s. 8. Bydureon 2 mg subcu weekly. 9. Vitamin D3 1000 daily. 10.Bumex 0.5 mg daily. 11.Aspirin 81 mg. 12.Albuterol 2 puffs q.6h p.r.n. ALLERGIES: LISINOPRIL . FAMILY HISTORY: History of myocardial infarction, rheumatic fever in the family. SOCIAL HISTORY: No history of smoking. No history of alcohol intake. REVIEW OF SYSTEMS: ENT: Diminished vision. Diminished hearing. CARDIOVASCULAR: As mentioned earlier. RESPIRATION: As mentioned earlier. GI no nausea or vomiting. no dysuria. Nervous system as mentioned earlier. ALLERGY/IMMUNOLOGY: No asthma or hayfever. MUSCULOSKELETAL as mentioned earlier. HEMATOLOGY/ONCOLOGY: No history of anemia. ENDOCRINE: Diabetes. CONSTITUTIONAL: As mentioned earlier. Dermatology: Negative. Rheumatology: Negative. Psychiatry: As mentioned earlier. PHYSICAL EXAMINATION: GENERAL: The patient is alert and oriented x2. Pulse 71, blood pressure 166/99, respiration 22, temperature 97.8, pulse ox 98% on 4 L. HEENT is conjunctivae normal. Oral mucosa moist. NECK is no jugular venous distention. No carotid bruit. No lymph node enlargement. CARDIOVASCULAR: S1, S2. Ejection systolic murmur. RESPIRATIONS: Breath sounds diminished in the bases. A few scattered rhonchi and crackles. ABDOMEN: Soft, obese, nontender. No mass palpable. LEGS: Bilateral leg edema. NERVOUS SYSTEM: Higher functions as mentioned earlier. Moves all 4 limbs. Mild diffuse weakness. LYMPHATICS: No lymph nodes palpable in the neck, axilla and groin. SKIN: No ulcer, rash or bleeding. LAB STUDIES: WBC 11.1, hemoglobin 10.8, and INR 1 and potassium 5.3, creatinine 3.32. ASSESSMENT: 1. Congestive heart failure acute exacerbation. Ejection fraction unknown. 2. History of atrial fibrillation. 3. History of asthma. 4. History of cerebrovascular accident, transient ischemic attack. 5. Diabetes type 2. 6. History of deep vein thrombosis. 7. Gastroesophageal reflux disease. 8. Hypertension. 9. Hyperlipidemia. 10.Degenerative joint disease. 11.History of adenoidectomy. 12.History of cholecystectomy. 13.History of permanent pacemaker. RECOMMENDATIONS AND DISCUSSION: In this 73-year-old woman who presented with multiple complex medical issues, we will monitor the patient closely, continue the current medications, management and symptomatic treatment. I would recommend intravenous Lasix, Cardiology and Nephrology consultations. Resume the home medications. Otherwise, ensure oxygenation. DVT prophylaxis. Resume the home medications. Prognosis guarded because of multiple complex medical issues. Further recommendations to follow. A copy of dictation being forwarded to Dr. Avitia, who is the primary physician. MMLUCILLEL / GODFREYN: [id number] / MTDD
[2018-07-28] MEDS ORDERED: FAMOTIDINE 20 MG TAB PO SCH (09:00)
[2018-07-28] MEDS: SEVELAMER 800 MG TAB PO SCH ×3 (10:34→19:50)
[2018-07-28] MEDS: PIOGLITAZONE 15 MG TAB PO SCH (10:35)
[2018-07-28 10:48] VITALS: BMI 41.3
[2018-07-28] MEDS: METOPROLOL TARTRATE 50 MG TAB PO SCH ×2 (11:15→19:54)
[2018-07-28] MEDS: MECLIZINE 25 MG TAB PO SCH (11:15)
[2018-07-28] MEDS: ASPIRIN 81 MG PO SCH (11:15)
--- NOTE | 2018-07-28 15:26 | ECHOF ---
Referral Reason:sob MEASUREMENTS -------- HEIGHT: 160.0 cm WEIGHT: 114.8 kg BP: 138/80 IVSd: 1.3 cm (0.6 - 1.1) LVIDd: 4.3 cm (3.9 - 5.3) LVPWd: 1.3 cm (0.6 - 1.1) IVSs: 1.6 cm LVIDs: 2.7 cm LVPWs: 1.7 cm RVIDd: 2.9 cm (< 3.3) LAESV Index (A-L): 33.69 ml/m Ao Diam: 3.0 cm (2.0 - 3.7) LA Diam: 4.5 cm (2.7 - 3.8) AV Cusp: 2.2 cm (1.5 - 2.6) EPSS: 0.4 cm MV E Dell: 0.85 m/s MV DecT: 263 ms MV A Dell: 0.91 m/s MV E/A Ratio: 0.93 RAP: 10.00 mmHg RVSP: 83.83 mmHg MV EF SLOPE: 68.17 mm/s (70 - 150) MV EXCURSION: 1.61 cm (> 18.000) FINDINGS -------- Sinus rhythm. This was a technically difficult study with suboptimal views. The left ventricular size is normal. There is moderate concentric left ventricular hypertrophy. O verall left ventricular systolic function is normal with, an EF between 55 - 60 %. The right ventricle is normal in size and function. LA is midly dilated 29-33ml/m2. The right atrium is markedly enlarged. Electronic pacemaker lead seen in the right ventricular cavi ty. 3 ml of Lumason was utilized for enhancement of images. Aortic valve is trileaflet and is mildly thickened. There is no evidence of aortic regurgitation. There is no evidence of aortic stenosis. The mitral valve leaflets are mildly thickened. Mild mitral regurgitation is present. Severe tricuspid regurgitation present. There is severe pulmonary hypertension. The right ventric ular systolic pressure, as measured by Doppler, is 83.83mmHg. Trace/mild (physiologic) pulmonic regurgitation. The aortic root size is normal. The IVC is dilated with normal collapse. There is no pericardial effusion. CONCLUSIONS -------- 1. Sinus rhythm. 2. This was a technically difficult study with suboptimal views. 3. The left ventricular size is normal. 4. There is moderate concentric left ventricular hypertrophy. 5. Overall left ventricular systolic function is normal with, an EF between 55 - 60 %. 6. LA is midly dilated 29-33ml/m2. 7. The right atrium is markedly enlarged. 8. Electronic pacemaker lead seen in the right ventricular cavity. 9. 3 ml of Lumason was utilized for enhancement of images. 10. Aortic valve is trileaflet and is mildly thickened. 11. The mitral valve leaflets are mildly thickened. 12. Mild mitral regurgitation is present. 13. Severe tricuspid regurgitation present. 14. There is severe pulmonary hypertension. 15. The right ventricular systolic pressure, as measured by Doppler, is 83.83mmHg. 16. Trace/mild (physiologic) pulmonic regurgitation. 17. The aortic root size is normal. 18. The IVC is dilated with normal collapse. 19. There is no pericardial effusion. JUNIOR SYSTEMS ADMINISTRATOR: Casey Ta RDCS
[2018-07-28 16:03] LABS: Anisocytosis Slight; Basophils # (A) 0.1 k/uL (0-0.2); Basophils % (A) 1 %; Eosinophils # (A) 0.1 k/uL (0-0.7); Eosinophils % (A) 1 %; HGB 10.7 gm/dL (11.4-16.0); Hypochromasia Marked; Lymphocytes # (A) 1.2 k/uL (1.0-4.8); Lymphocytes % (A) 12 %; MCH 30.5 pg (25.0-35.0); MCHC 30.7 g/dL (31.0-37.0); MCV 99.4 fL (80.0-100.0); Macrocytosis Slight; Mean Platelet Volume 6.7; Monocytes % (A) 10 %; Neutrophils # (A) 6.8 k/uL (1.3-7.7); Neutrophils % (A) 73 %; Platelet Count 317 k/uL (150-450); RBC 3.52 m/uL (3.80-5.40); RDW 17.1 % (11.5-15.5); WBC 9.3 k/uL (3.8-10.6)
[2018-07-28 16:17] LABS: Calcium 10.1 mg/dL (8.4-10.2); Potassium 5.5 mmol/L (3.5-5.1)
--- NOTE | 2018-07-28 16:46 | PN ---
PROGRESS NOTE DATE OF SERVICE: 07/28/2018 This 73-year-old woman is admitted with CHF exacerbation also had a 2D echo done today. Ejection fraction found to be 50-60 percent with significant pulmonary hypertension, right-sided changes. The patient being closely monitored. Patient is on IV Lasix. Patient is feeling slightly better. There is no history of fever, rigors or chills. No history of headache, loss of consciousness, seizures. PAST MEDICAL HISTORY: Reviewed. REVIEW OF SYSTEMS: CARDIOVASCULAR: As mentioned earlier. RESPIRATORY: As mentioned earlier. GI no nausea or vomiting. no dysuria. CURRENT MEDICATIONS ARE: Reviewed and include: 1. Ventolin 2.5 q.6h. 2. Aspirin 81 mg. 3. Vitamin D3 1000 daily. 4. Zetia 10 mg q.h.s. 5. Pepcid 20 mg. 6. Lasix 40 mg IV q.6 hours. 7. NovoLog. 8. Claritin. 9. Antivert. 10.Lopressor 50 mg b.i.d. 11.Actos. 12.Renvela. PHYSICAL EXAM: Patient is alert, oriented x3. Pulse is 70, blood pressure 120/77. Respiration 18, temperature 97.8, pulse ox 97% on 3 L. HEENT is conjunctivae normal. Oral mucosa moist. Neck is no jugular venous distention. No carotid bruit. No lymph node enlargement. Cardiovascular: S1, S2 muffled. RESPIRATORY: Breath sounds diminished in the bases bilateral. A few scattered rhonchi and crackles. ABDOMEN: Soft, obese. LEGS: Bilateral leg edema. Nervous system: Diffusely weak. LAB STUDIES: WBC 10.1, hemoglobin 10.8, and creatinine 3.32. ASSESSMENT: 1. Shortness of breath, possible congestive heart failure acute exacerbation with acute on chronic diastolic dysfunction, ejection fraction 50-60 percent. 2. Severe tricuspid regurgitation as well as severe pulmonary hypertension on the 2D echo. 3. History of atrial fibrillation. 4. History of asthma. 5. History of cerebrovascular accident, transient ischemic attack. 6. Diabetes type 2. 7. History of deep vein thrombosis. 8. Gastroesophageal reflux disease. 9. Hypertension. 10.Hyperlipidemia. 11.History of degenerative joint disease. 12.History of adenoidectomy. 13.History of cholecystectomy. 14.History of permanent pacemaker. RECOMMENDATIONS AND DISCUSSION: Recommend to continue current medication, continue symptomatic treatment. Otherwise at this time I would recommend continue the diuresis. DVT prophylaxis. Resume the home medications. I would also recommend pulmonary consultation for evaluation of pulmonary hypertension. The prognosis guarded because of multiple complex medical issues. Further recommendations to follow. See orders for details. MMODL / IJN: [id number] /
[2018-07-28 18:41] LABS: Appearance,Urine Cloudy (Clear); Bilirubin,Urine Negative (Negative); Blood,Urine Negative (Negative); Color,Urine Light Yellow; Glucose,Urine (UA) Negative (Negative); Ketones,Urine Negative (Negative); Leukocyte Esterase,Urine Large (Negative); Mucus,Urine Rare /hpf; Nitrite,Urine Negative (Negative); PH, Urine 5.5 (5.0-8.0); Protein,Urine 1+ (Negative); Specific Gravity,Urine 1.007 (1.001-1.035); Squamous Epithelial Cell,Urine 6 /hpf (0-4); Urobilinogen,Urine <2.0 mg/dL (<2.0); WBC,Urine 8 /hpf (0-5)
[2018-07-28] MEDS: EZETIMIBE 10 MG TAB PO SCH (19:53)
[2018-07-28 20:00] LABS: Glucose,Whole Blood 304 mg/dL (75-99)
[2018-07-28] MEDS: INSULIN ASPART 100 UNIT/ML 1 ML 10 ML VIAL SQ SCH ×3 (20:46→20:48)
[2018-07-28 23:20] LABS: Hemoglobin A1C 6.1 % (4.0-6.0)
[2018-07-29] MEDS: FUROSEMIDE 10 MG/ML 4 ML VIAL IV SCH ×3 (01:50→17:42)
[2018-07-29] MEDS: ALBUTEROL NEBULIZED 2.5 MG/3 ML INHALATION SCH ×4 (03:43→20:41)
[2018-07-29 06:04] LABS: Glucose,Whole Blood 142 mg/dL (75-99)
[2018-07-29] MEDS: SEVELAMER 800 MG TAB PO SCH ×3 (06:04→17:42)
[2018-07-29] MEDS: INSULIN ASPART 100 UNIT/ML 1 ML 10 ML VIAL SQ SCH ×4 (06:04→21:54)
[2018-07-29 06:52] LABS: Anisocytosis Slight; Basophils # (A) 0.1 k/uL (0-0.2); Basophils % (A) 1 %; Eosinophils # (A) 0.2 k/uL (0-0.7); Eosinophils % (A) 2 %; HCT 34.1 % (34.0-46.0); HGB 10.5 gm/dL (11.4-16.0); Hypochromasia Marked; Lymphocytes # (A) 1.3 k/uL (1.0-4.8); Lymphocytes % (A) 14 %; MCH 30.3 pg (25.0-35.0); MCHC 30.7 g/dL (31.0-37.0); MCV 98.8 fL (80.0-100.0); Macrocytosis Slight; Mean Platelet Volume 6.8; Monocytes # (A) 0.9 k/uL (0-1.0); Monocytes % (A) 9 %; Neutrophils # (A) 6.6 k/uL (1.3-7.7); Neutrophils % (A) 72 %; Platelet Count 310 k/uL (150-450); RBC 3.46 m/uL (3.80-5.40); RDW 17.3 % (11.5-15.5); WBC 9.3 k/uL (3.8-10.6)
[2018-07-29 07:19] LABS: Calcium 9.8 mg/dL (8.4-10.2)
[2018-07-29] MEDS: MECLIZINE 25 MG TAB PO SCH (08:38)
[2018-07-29] MEDS: ASPIRIN 81 MG PO SCH (08:38)
[2018-07-29] MEDS: FAMOTIDINE 20 MG TAB PO SCH (08:38)
[2018-07-29] MEDS: CHOLECALCIFEROL 1,000 UNIT TAB PO SCH (08:38)
[2018-07-29] MEDS: LORATADINE 10 MG TAB PO SCH (08:38)
[2018-07-29] MEDS: METOPROLOL TARTRATE 50 MG TAB PO SCH ×2 (08:38→19:41)
[2018-07-29] MEDS: PIOGLITAZONE 15 MG TAB PO SCH (08:40)
[2018-07-29 11:50] LABS: Glucose,Whole Blood 163 mg/dL (75-99)
--- NOTE | 2018-07-29 13:04 | XR ---
EXAMINATION TYPE: XR chest 2V DATE OF EXAM: 07/29/2018 COMPARISON: NONE HISTORY: Shortness of breath TECHNIQUE: Frontal and lateral views of the chest are obtained. FINDINGS: Scattered senescent parenchymal changes noted. Hyperinflation compatible with COPD. Patchy basilar infiltrates and small effusions. Correlate for congestive failure. Heart size is stable. Mediastinal structures are stable and grossly unremarkable. No evidence for hilar prominence. Degenerative changes dorsal spine. IMPRESSION: 1. No evidence for acute pulmonary disease.
--- NOTE | 2018-07-29 13:36 | P.CNPUL ---
History of Present Illness Consult date: 07/29/18 Requesting physician: Garret Roberto Reason for consult: dyspnea Chief complaint: Short of breath, lightheadedness History of present illness: This is a very pleasant 73-year-old female patient who follows with Dr. Avitia as her primary care physician. She has a history of atrial fibrillation status post permanent pacemaker implantation, CVA/TIA, diabetes mellitus, DVT, GERD, hyperlipidemia, hypertension, osteoarthritis, chronic renal failure. She is a lifelong nonsmoker. At home she had developed increasing shortness of breath dizziness and lightheadedness and felt as though she may pass out to him a EMS was called.She was transferred here to the emergency room firm from [facility] with concerns regarding elevated troponins , elevated BNP and congestive heart failure. A chest x-ray there revealed evidence of decompensated congestive heart failure with a right-sided pleural effusion and hypoxia. He did receive IV diuretics. By the time she was transferred here to our emergency room she is feeling quite a bit better. Her shortness of breath had improved significantly. No further dizziness or lightheadedness. The patient is seen today in consultation on the selective care unit. She is awake and alert in no acute distress. She is currently sitting up in a chair at the bedside. No worsening shortness of breath, cough or congestion. She states she is breathing quite a bit easier today as compared to yesterday. She is maintaining O2 saturations in the low 90s on room air. She's been afebrile. Hemodynamically stable. Chest x-ray shows no acute pulmonary process. White count 9.3. Hemoglobin 10.5. Creatinine 3.67. Remains on Lasix IV push every 8 hours. Review of Systems Constitutional: Reports fatigue, Reports weight gain Eyes: denies blurred vision, denies decreased vision Ears: deny: decreased hearing Ears, nose, mouth and throat: Denies headache, Denies sore throat Cardiovascular: Reports dyspnea on exertion, Reports edema, Reports leg edema, Reports shortness of breath Respiratory: Reports dyspnea Gastrointestinal: Denies abdominal pain, Denies diarrhea, Denies nausea, Denies vomiting Genitourinary: Denies dysuria, Denies hematuria Musculoskeletal: Denies myalgias Integumentary: Denies pruritus, Denies rash Neurological: Denies numbness, Denies weakness Psychiatric: Denies anxiety, Denies depression Endocrine: Denies fatigue, Denies weight change Hematologic/Lymphatic: Reports as per HPI Allergic/Immunologic: Reports as per HPI Past Medical History Past Medical History: Atrial Fibrillation, Asthma, Heart Failure, CVA/TIA, Diabetes Mellitus, Deep Vein Thrombosis (DVT), Eye Disorder, GERD/Reflux, Hyperlipidemia, Hypertension, Osteoarthritis (OA), Renal Disease History of Any Multi-Drug Resistant Organisms: None Reported Past Surgical History: Adenoidectomy, Appendectomy, Cholecystectomy, Pacemaker, Tonsillectomy Past Anesthesia/Blood Transfusion Reactions: No Reported Reaction Type of Cardiac Device: Permanent Pacemaker Device Placement Date:: 2016 Past Psychological History: No Psychological Hx Reported Smoking Status: Never smoker Past Alcohol Use History: None Reported Past Drug Use History: None Reported - Past Family History Father Family Medical History: Myocardial Infarction ([place]) Additional Family Medical History / Comment(s): RHEUMATIC FEVER Medications and Allergies Home Medications Medication Instructions Recorded Confirmed Type Bumetanide [BUMEX] 0.5 mg PO DAILY 12/22/17 07/27/18 History Cholecalciferol [Vitamin D3] 1,000 unit PO DAILY 12/22/17 07/27/18 History Ezetimibe [Zetia] 10 mg PO HS 12/22/17 07/27/18 History Meclizine HCl 25 mg PO DAILY 12/22/17 07/27/18 History Metoprolol Tartrate [Lopressor] 50 mg PO BID 12/22/17 07/27/18 History Ranitidine HCl [Zantac] 150 mg PO BID 12/22/17 07/27/18 History Aspirin 81 mg PO DAILY #30 chewable 12/24/17 07/27/18 Rx Albuterol Inhaler [Ventolin Hfa 2 puff INHALATION RT-Q6H 07/27/18 07/27/18 History Inhaler] Exenatide Microspheres [Bydureon 2 mg SQ WEEKLY 07/27/18 07/27/18 History Pen] Loratadine [Claritin] 10 mg PO DAILY 07/27/18 07/27/18 History Pioglitazone [Actos] 15 mg PO DAILY 07/27/18 07/27/18 History Sevelamer [Renvela] 800 mg PO TID 07/27/18 07/27/18 History Allergies Allergy/AdvReac Type Severity Reaction Status Date / Time LISINOPRIL Allergy Unknown Uncoded 07/27/18 22:44 STATINS AdvReac Unknown Uncoded 07/27/18 22:44 Physical Exam Vitals: Vital Signs Temp Pulse Pulse Resp BP Pulse Ox 07/29/18 11:10 97.8 F 71 16 126/74 90 L 07/29/18 08:40 71 07/29/18 08:28 70 16 07/29/18 08:20 97.6 F 70 18 132/63 90 L 07/29/18 03:18 97.3 F L 68 20 132/71 98 07/29/18 00:00 66 18 130/67 97 07/28/18 20:39 72 07/28/18 20:32 70 07/28/18 20:00 97.6 F 70 18 130/90 93 L 07/28/18 14:52 97.6 F 68 16 105/60 96 07/28/18 13:56 70 18 07/28/18 13:45 70 18 Intake and Output 07/28/18 07/29/18 07/29/18 22:59 06:59 14:59 Intake Total 480 240 Output Total 150 350 300 Balance 330 -350 -60 Intake: Oral 480 240 Output: Urine 150 350 300 Uretheral (Hsu) 150 Other: Voiding Method Toilet Toilet Toilet Diaper Diaper Diaper Incontinent Incontinent Incontinent # Voids 1 Weight 105.687 kg 115.4 kg - Constitutional General appearance: morbidly obese, no acute distress - EENT Eyes: EOMI, PERRLA ENT: hearing grossly normal Ears: bilateral: normal - Neck Neck: normal ROM Carotids: bilateral: upstroke normal Thyroid: bilateral: normal size - Respiratory Respiratory: bilateral: rales - Cardiovascular Rhythm: regular Heart sounds: normal: S1, S2 - Gastrointestinal General gastrointestinal: normal bowel sounds - Integumentary Integumentary: normal turgor - Neurologic Neurologic: CNII-XII intact - Musculoskeletal Musculoskeletal: generalized weakness - Psychiatric Psychiatric: appropriate affect, intact judgment & insight Results - Laboratory Findings CBC and BMP: 07/29/18 05:54 07/29/18 05:54 PT/INR, D-dimer PT 11.0 sec (9.0-12.0) 07/27/18 23:13 INR 1.0 (<1.2) 07/27/18 23:13 Abnormal lab findings: Abnormal Labs 07/27/18 07/27/18 07/27/18 23:13 23:13 23:13 RBC 3.69 L Hgb 10.8 L MCHC 29.7 L RDW 17.0 H Neutrophils # 8.2 H Lymphocytes # 0.9 L APTT Potassium 5.3 H Chloride 109 H BUN 62 H Creatinine 3.32 H Glucose 130 H POC Glucose (mg/dL) Hemoglobin A1c Calcium 10.3 H Total Creatine Kinase <20 L Troponin I 0.035 H* Urine Appearance Urine Protein Ur Leukocyte Esterase Urine WBC Ur Squamous Epith Cells Urine Mucus 07/27/18 07/27/18 07/28/18 23:13 23:13 15:50 RBC 3.52 L Hgb 10.7 L MCHC 30.7 L RDW 17.1 H Neutrophils # Lymphocytes # APTT 20.8 L Potassium Chloride BUN Creatinine Glucose POC Glucose (mg/dL) Hemoglobin A1c 6.1 H Calcium Total Creatine Kinase Troponin I Urine Appearance Urine Protein Ur Leukocyte Esterase Urine WBC Ur Squamous Epith Cells Urine Mucus 07/28/18 07/28/18 07/28/18 15:50 18:00 19:49 RBC Hgb MCHC RDW Neutrophils # Lymphocytes # APTT Potassium 5.5 H Chloride BUN 67 H Creatinine 3.73 H Glucose 207 H POC Glucose (mg/dL) 304 H Hemoglobin A1c Calcium Total Creatine Kinase Troponin I Urine Appearance Cloudy H Urine Protein 1+ H Ur Leukocyte Esterase Large H Urine WBC 8 H Ur Squamous Epith Cells 6 H Urine Mucus Rare H 07/29/18 07/29/18 07/29/18 05:54 05:54 05:58 RBC 3.46 L Hgb 10.5 L MCHC 30.7 L RDW 17.3 H Neutrophils # Lymphocytes # APTT Potassium Chloride BUN 74 H Creatinine 3.67 H Glucose 137 H POC Glucose (mg/dL) 142 H Hemoglobin A1c Calcium Total Creatine Kinase Troponin I Urine Appearance Urine Protein Ur Leukocyte Esterase Urine WBC Ur Squamous Epith Cells Urine Mucus 07/29/18 11:42 RBC Hgb MCHC RDW Neutrophils # Lymphocytes # APTT Potassium Chloride BUN Creatinine Glucose POC Glucose (mg/dL) 163 H Hemoglobin A1c Calcium Total Creatine Kinase Troponin I Urine Appearance Urine Protein Ur Leukocyte Esterase Urine WBC Ur Squamous Epith Cells Urine Mucus - Diagnostic Findings Chest x-ray: image reviewed Assessment and Plan Assessment: Impression: #1 Acute exacerbation of diastolic congestive heart failure. Preserved left ventricular systolic function with ejection fraction 55-60%. #2 Severe pulmonary hypertension with an RVSP of 83 mmHg. #3 Acute on chronic renal failure. #4 Morbid obesity. #5 atrial fibrillation, status post permanent pacemaker implantation. #6 History of CVA/TIA. #7 Diabetes mellitus. #8 History of DVT. #9 Hyperlipidemia. #10 Hypertension. Plan: The patient was seen and evaluated by Dr. Shah. Chest x-ray and labs reviewed. No acute pulmonary process. She is improved from the pulmonary standpoint. Continue albuterol as needed. We'll continue diuretics for now. We will increase her activity as tolerated. We'll continue to follow and make further recommendations based on her clinical status. I, the cosigning physician, performed a history & physical examination of the patient. Lungs sounds are clear. Maintaining good O2 saturations in the 90s on room air. I discussed the assessment and plan of care with my nurse practitioner, Tiffani Sibley. I attest to the above consultation as dictated by her. Time with Patient: Greater than 30
--- NOTE | 2018-07-29 15:00 | P.CRDCN ---
History of Present Illness History of present illness: This is Dr. Hill dictating a consult on this patient The patient was interviewed and examined by me IMPRESSION / ASSESSMENT: 1 episode of presyncope Patient has a permanent pacemaker twelve-lead ECG shows paced rhythm Borderline troponin and elevated BNP Severe pulmonary hypertension PLAN: Continue telemetry monitoring Pacemaker interrogation for any arrhythmias and check thresholds 2-D echo and Doppler study 2-D echo and Doppler study to assess chronic structure and function: This shows preserved LV systolic function with severe pulmonary hypertension HPI Patient presented with a presyncopal spell. She was sitting at that time She is also been complaining of shortness of breath ROS: No fever chills or rigors, no cough, phlegm or expectoration, no nausea, vomiting or diarrhea, no hematuria, dysuria, no musculoskeletal complaints, no strokes or seizures, no skin lesions. EXAMINATION: Breath sounds are reduced bilaterally Heart sounds were S2 are soft Abdomen is soft Extremities are warm Blood pressure 126/70 400 with his mercury pulse rate in 70s REVIEW OF LABS, ECG & MEDICAL DATA Potassium 5.5 Troponins 0.035 BNP 15,300 Past Medical History Past Medical History: Atrial Fibrillation, Asthma, Heart Failure, CVA/TIA, Diabetes Mellitus, Deep Vein Thrombosis (DVT), Eye Disorder, GERD/Reflux, Hyperlipidemia, Hypertension, Osteoarthritis (OA), Renal Disease History of Any Multi-Drug Resistant Organisms: None Reported Past Surgical History: Adenoidectomy, Appendectomy, Cholecystectomy, Pacemaker, Tonsillectomy Past Anesthesia/Blood Transfusion Reactions: No Reported Reaction Type of Cardiac Device: Permanent Pacemaker Device Placement Date:: 2016 Past Psychological History: No Psychological Hx Reported Smoking Status: Never smoker Past Alcohol Use History: None Reported Past Drug Use History: None Reported - Past Family History Father Family Medical History: Myocardial Infarction ([place]) Additional Family Medical History / Comment(s): RHEUMATIC FEVER Medications and Allergies Home Medications Medication Instructions Recorded Confirmed Type Bumetanide [BUMEX] 0.5 mg PO DAILY 12/22/17 07/27/18 History Cholecalciferol [Vitamin D3] 1,000 unit PO DAILY 12/22/17 07/27/18 History Ezetimibe [Zetia] 10 mg PO HS 12/22/17 07/27/18 History Meclizine HCl 25 mg PO DAILY 12/22/17 07/27/18 History Metoprolol Tartrate [Lopressor] 50 mg PO BID 12/22/17 07/27/18 History Ranitidine HCl [Zantac] 150 mg PO BID 12/22/17 07/27/18 History Aspirin 81 mg PO DAILY #30 chewable 12/24/17 07/27/18 Rx Albuterol Inhaler [Ventolin Hfa 2 puff INHALATION RT-Q6H 07/27/18 07/27/18 History Inhaler] Exenatide Microspheres [Bydureon 2 mg SQ WEEKLY 07/27/18 07/27/18 History Pen] Loratadine [Claritin] 10 mg PO DAILY 07/27/18 07/27/18 History Pioglitazone [Actos] 15 mg PO DAILY 07/27/18 07/27/18 History Sevelamer [Renvela] 800 mg PO TID 07/27/18 07/27/18 History Allergies Allergy/AdvReac Type Severity Reaction Status Date / Time LISINOPRIL Allergy Unknown Uncoded 07/27/18 22:44 STATINS AdvReac Unknown Uncoded 07/27/18 22:44 Physical Exam Vitals: Vital Signs Temp Pulse Pulse Resp BP Pulse Ox 07/29/18 13:32 72 07/29/18 13:21 72 07/29/18 11:10 97.8 F 71 16 126/74 90 L 07/29/18 08:40 71 07/29/18 08:28 70 16 07/29/18 08:20 97.6 F 70 18 132/63 90 L 07/29/18 03:18 97.3 F L 68 20 132/71 98 07/29/18 00:00 66 18 130/67 97 07/28/18 20:39 72 07/28/18 20:32 70 07/28/18 20:00 97.6 F 70 18 130/90 93 L Intake and Output 07/29/18 07/29/18 07/29/18 06:59 14:59 22:59 Intake Total 480 Output Total 350 300 Balance -350 180 Intake: Oral 480 Output: Urine 350 300 Other: Voiding Method Toilet Toilet Diaper Diaper Incontinent Incontinent # Voids 1 1 Weight 115.4 kg Results 07/29/18 05:54 07/29/18 05:54 CBC 07/28/18 07/29/18 Range/Units 15:50 05:54 WBC 9.3 9.3 (3.8-10.6) k/uL RBC 3.52 L 3.46 L (3.80-5.40) m/uL Hgb 10.7 L 10.5 L (11.4-16.0) gm/dL Hct 35.0 34.1 (34.0-46.0) % Plt Count 317 310 (150-450) k/uL Comprehensive Metabolic Panel 07/28/18 07/29/18 Range/Units 15:50 05:54 Sodium 142 140 (137-145) mmol/L Potassium 5.5 H 5.0 (3.5-5.1) mmol/L Chloride 107 104 (98-107) mmol/L Carbon Dioxide 27 26 (22-30) mmol/L BUN 67 H 74 H (7-17) mg/dL Creatinine 3.73 H 3.67 H (0.52-1.04) mg/dL Glucose 207 H 137 H (74-99) mg/dL Calcium 10.1 9.8 (8.4-10.2) mg/dL Current Medications Generic Name Dose Route Start Last Admin Trade Name Freq PRN Reason Stop Dose Admin Albuterol Sulfate 2.5 mg 07/28/18 02:00 07/29/18 13:21 Ventolin Nebulized INHALATION 2.5 mg RT-Q6H GILL Administration Aspirin 81 mg 07/28/18 09:00 07/29/18 08:38 Aspirin PO 81 mg DAILY GILL Administration Cholecalciferol 1,000 unit 07/29/18 09:00 07/29/18 08:38 Vitamin D3 PO 1,000 unit DAILY GILL Administration Ezetimibe 10 mg 07/28/18 21:00 07/28/18 19:53 Zetia PO 10 mg HS GILL Administration Famotidine 20 mg 07/29/18 09:00 07/29/18 08:38 Pepcid PO 20 mg DAILY GILL Administration Furosemide 40 mg 07/28/18 02:00 07/29/18 08:40 Lasix IV 40 mg Q8H GILL Administration Insulin Aspart 0 unit 07/28/18 17:30 07/29/18 12:40 Novolog SQ 1 unit ACHS GILL Administration Protocol Loratadine 10 mg 07/29/18 09:00 07/29/18 08:38 Claritin PO 10 mg DAILY GILL Administration Meclizine HCl 25 mg 07/28/18 09:00 07/29/18 08:38 Antivert PO 25 mg DAILY GILL Administration Metoprolol Tartrate 50 mg 07/28/18 09:00 07/29/18 08:38 Lopressor PO 50 mg BID GILL Administration Exenatide 2 mg 08/04/18 09:00 Microspheres [ SQ Bydureon Pen] WEEKLY GILL Pioglitazone HCl 15 mg 07/28/18 09:00 07/29/18 08:40 Actos PO 15 mg DAILY GILL Administration Sevelamer Carbonate 800 mg 07/28/18 07:30 07/29/18 12:40 Renvela PO 800 mg TID-W/MEALS GILL Administration Intake and Output 07/29/18 07/29/18 07/29/18 06:59 14:59 22:59 Intake Total 480 Output Total 350 300 Balance -350 180 Intake: Oral 480 Output: Urine 350 300 Other: Voiding Method Toilet Toilet Diaper Diaper Incontinent Incontinent # Voids 1 1 Weight 115.4 kg 07/29/18 05:54 07/29/18 05:54
[2018-07-29 17:08] LABS: Glucose,Whole Blood 170 mg/dL (75-99)
[2018-07-29] MEDS: EZETIMIBE 10 MG TAB PO SCH (19:41)
[2018-07-29 21:05] LABS: Glucose,Whole Blood 228 mg/dL (75-99)
[2018-07-30] MEDS: ALBUTEROL NEBULIZED 2.5 MG/3 ML INHALATION SCH ×4 (02:05→20:37)
[2018-07-30] MEDS: FUROSEMIDE 10 MG/ML 4 ML VIAL IV SCH ×2 (02:47→08:38)
[2018-07-30 06:19] LABS: Glucose,Whole Blood 150 mg/dL (75-99)
[2018-07-30 07:21] LABS: Anisocytosis Slight; Basophils # (A) 0.1 k/uL (0-0.2); Basophils % (A) 1 %; Eosinophils # (A) 0.2 k/uL (0-0.7); Eosinophils % (A) 2 %; HCT 36.1 % (34.0-46.0); Hypochromasia Moderate; Lymphocytes # (A) 1.4 k/uL (1.0-4.8); Lymphocytes % (A) 15 %; MCH 30.1 pg (25.0-35.0); MCHC 30.6 g/dL (31.0-37.0); MCV 98.2 fL (80.0-100.0); Macrocytosis Slight; Mean Platelet Volume 6.8; Monocytes # (A) 0.8 k/uL (0-1.0); Monocytes % (A) 9 %; Neutrophils # (A) 6.2 k/uL (1.3-7.7); Neutrophils % (A) 70 %; Platelet Count 337 k/uL (150-450); RBC 3.67 m/uL (3.80-5.40); RDW 18.2 % (11.5-15.5); WBC 8.9 k/uL (3.8-10.6)
[2018-07-30] MEDS: INSULIN ASPART 100 UNIT/ML 1 ML 10 ML VIAL SQ SCH ×4 (07:21→21:15)
[2018-07-30] MEDS: SEVELAMER 800 MG TAB PO SCH ×3 (07:21→17:43)
[2018-07-30 07:32] LABS: Calcium 10.2 mg/dL (8.4-10.2)
[2018-07-30] MEDS: LORATADINE 10 MG TAB PO SCH (08:36)
[2018-07-30] MEDS: METOPROLOL TARTRATE 50 MG TAB PO SCH ×2 (08:36→20:43)
[2018-07-30] MEDS: MECLIZINE 25 MG TAB PO SCH (08:36)
[2018-07-30] MEDS: CHOLECALCIFEROL 1,000 UNIT TAB PO SCH (08:36)
[2018-07-30] MEDS: ASPIRIN 81 MG PO SCH (08:36)
[2018-07-30] MEDS: FAMOTIDINE 20 MG TAB PO SCH (08:36)
[2018-07-30] MEDS: PIOGLITAZONE 15 MG TAB PO SCH (08:46)
--- NOTE | 2018-07-30 10:23 | P.PN ---
Subjective Progress Note Date: 07/30/18 Principal diagnosis: Acute exacerbation of diastolic congestive heart failure This is a very pleasant 73-year-old female patient who follows with Dr. Avitia as her primary care physician. She has a history of atrial fibrillation status post permanent pacemaker implantation, CVA/TIA, diabetes mellitus, DVT, GERD, hyperlipidemia, hypertension, osteoarthritis, chronic renal failure. She is a lifelong nonsmoker. At home she had developed increasing shortness of breath dizziness and lightheadedness and felt as though she may pass out to him a EMS was called.She was transferred here to the emergency room firm from [facility] with concerns regarding elevated troponins , elevated BNP and congestive heart failure. A chest x-ray there revealed evidence of decompensated congestive heart failure with a right-sided pleural effusion and hypoxia. He did receive IV diuretics. By the time she was transferred here to our emergency room she is feeling quite a bit better. Her shortness of breath had improved significantly. No further dizziness or lightheadedness. The patient is seen today in consultation on the selective care unit. She is awake and alert in no acute distress. She is currently sitting up in a chair at the bedside. No worsening shortness of breath, cough or congestion. She states she is breathing quite a bit easier today as compared to yesterday. She is maintaining O2 saturations in the low 90s on room air. She's been afebrile. Hemodynamically stable. Chest x-ray shows no acute pulmonary process. White count 9.3. Hemoglobin 10.5. Creatinine 3.67. Remains on Lasix IV push every 8 hours. The patient is seen today 07/30/2017 in follow-up on the selective care unit. She is currently sitting up in a chair at the bedside. She is awake and alert in no acute distress. Maintaining good O2 saturations in the mid 90s on room air. She's been afebrile. Hemodynamically stable. Urine culture pending. White count 8.9. Hemoglobin 11.0. Creatinine 3.96. She remains on IV Lasix 40 mg every 8 hours. Chest x-ray had revealed no acute cardiopulmonary process. Objective - Vital Signs Vital signs: Vital Signs Temp 98 F 07/30/18 03:41 Pulse 72 07/30/18 07:53 Resp 17 07/30/18 03:43 BP 119/62 07/30/18 03:41 Pulse Ox 95 07/30/18 03:41 Intake & Output 07/29/18 07/30/18 07/30/18 18:59 06:59 18:59 Intake Total 720 800 Output Total 300 125 Balance 420 675 Weight 115 kg Intake: Oral 720 800 Output: Urine 300 125 Other: Voiding Method Toilet Toilet Diaper Diaper Incontinent Incontinent # Voids 1 2 - Exam GENERAL EXAM: Obese. Alert, active, comfortable in no apparent distress. HEAD: Normocephalic. EYES: Normal reaction of pupils, equal size. NOSE: Clear with pink turbinates. THROAT: No erythema or exudates. NECK: No masses, no JVD. CHEST: No chest wall deformity. LUNGS: Equal air entry with no crackles, wheeze, rhonchi or dullness. CVS: S1 and S2 normal with no audible murmur, regular rhythm. ABDOMEN: No hepatosplenomegaly, normal bowel sounds, no guarding or rigidity. SPINE: No scoliosis or deformity SKIN: No rashes CENTRAL NERVOUS SYSTEM: No focal deficits, tone is normal in all 4 extremities. EXTREMITIES: There is no peripheral edema. No clubbing, no cyanosis. Peripheral pulses are intact. - Labs CBC & Chem 7: 07/30/18 06:47 07/30/18 06:47 Labs: Abnormal Lab Results - Last 24 Hours (Table) 07/29/18 07/29/18 07/29/18 Range/Units 11:42 16:53 21:03 RBC (3.80-5.40) m/uL Hgb (11.4-16.0) gm/dL MCHC (31.0-37.0) g/dL RDW (11.5-15.5) % BUN (7-17) mg/dL Creatinine (0.52-1.04) mg/dL Glucose (74-99) mg/dL POC Glucose (mg/dL) 163 H 170 H 228 H (75-99) mg/dL 07/30/18 07/30/18 07/30/18 Range/Units 06:17 06:47 06:47 RBC 3.67 L (3.80-5.40) m/uL Hgb 11.0 L (11.4-16.0) gm/dL MCHC 30.6 L (31.0-37.0) g/dL RDW 18.2 H (11.5-15.5) % BUN 78 H (7-17) mg/dL Creatinine 3.96 H (0.52-1.04) mg/dL Glucose 156 H (74-99) mg/dL POC Glucose (mg/dL) 150 H (75-99) mg/dL Microbiology - Last 24 Hours (Table) 07/30/18 06:40 Urine Culture - Preliminary Urine,Clean Catch Assessment and Plan Assessment: Impression: #1 Acute exacerbation of diastolic congestive heart failure. Preserved left ventricular systolic function with ejection fraction 55-60%. #2 Severe pulmonary hypertension with an RVSP of 83 mmHg. #3 Acute on chronic renal failure. #4 Morbid obesity. #5 atrial fibrillation, status post permanent pacemaker implantation. #6 History of CVA/TIA. #7 Diabetes mellitus. #8 History of DVT. #9 Hyperlipidemia. #10 Hypertension. Plan: The patient was seen and evaluated by Dr. Shah. She is stable from the pulmonary standpoint. Continue albuterol as needed. We'll continue diuretics for now. Cardiology is following. We will increase her activity as tolerated. We'll continue to follow and make further recommendations based on her clinical status. I, the cosigning physician, performed a history & physical examination of the patient. Lungs sounds are clear. Maintaining good O2 saturations in the 90s on room air. I discussed the assessment and plan of care with my nurse practitioner, Tiffani Sibley. I attest to the above consultation as dictated by her.
[2018-07-30 11:29] LABS: Glucose,Whole Blood 249 mg/dL (75-99)
--- NOTE | 2018-07-30 14:48 | P.NPCON ---
History of Present Illness - Reason for Consult acute renal failure, chronic renal failure - History of Present Illness Reason for consultation: Acute kidney injury on chronic kidney disease History of present is: Patient is a 73-year-old female seen in renal consultation for acute kidney injury on chronic kidney disease. Patient has chronic kidney disease stage IV secondary to diabetic kidney disease with baseline creatinine in the range of 2.6-2.8 from a of 2018. This admission her creatinine was 3.3 and is up to 3.96 today. Patient presented to the hospital with dizziness. Patient denies falling or losing consciousness. She denies any chest pain or shortness of breath. She is currently maintained on Lasix 40 mg IV 3 times daily. She has history of diastolic CHF with severe tricuspid regurgitation and severe pulmonary hypertension. Chest x-ray reveals no evidence of fluid overload. Denies vomiting or diarrhea. Oral intake is fair. Denies use of NSAIDs. She does have history of diabetes mellitus. Hemodynamically she stable. Vital signs are stable. General: The patient appeared well nourished and normally developed. HEENT: Head exam is unremarkable. Neck is without jugular venous distension. LUNGS: Lungs are clear to auscultation and percussion. Breath sounds decreased. HEART: Rate and Rhythm are regular. First and second heart sounds normal. No murmurs, rubs or gallops. ABDOMEN: Abdominal exam reveals normal bowel sounds. Non-tender and non- distended. No evidence of peritonitis. EXTREMITITES: No clubbing, cyanosis, or edema. Past Medical History Past Medical History: Atrial Fibrillation, Asthma, Heart Failure, CVA/TIA, Diabetes Mellitus, Deep Vein Thrombosis (DVT), Eye Disorder, GERD/Reflux, Hyperlipidemia, Hypertension, Osteoarthritis (OA), Renal Disease History of Any Multi-Drug Resistant Organisms: None Reported Past Surgical History: Adenoidectomy, Appendectomy, Cholecystectomy, Pacemaker, Tonsillectomy Past Anesthesia/Blood Transfusion Reactions: No Reported Reaction Type of Cardiac Device: Permanent Pacemaker Device Placement Date:: 2016 Past Psychological History: No Psychological Hx Reported Smoking Status: Never smoker Past Alcohol Use History: None Reported Past Drug Use History: None Reported - Past Family History Father Family Medical History: Myocardial Infarction ([place]) Additional Family Medical History / Comment(s): RHEUMATIC FEVER Medications and Allergies Home Medications Medication Instructions Recorded Confirmed Type Bumetanide [BUMEX] 0.5 mg PO DAILY 12/22/17 07/27/18 History Cholecalciferol [Vitamin D3] 1,000 unit PO DAILY 12/22/17 07/27/18 History Ezetimibe [Zetia] 10 mg PO HS 12/22/17 07/27/18 History Meclizine HCl 25 mg PO DAILY 12/22/17 07/27/18 History Metoprolol Tartrate [Lopressor] 50 mg PO BID 12/22/17 07/27/18 History Ranitidine HCl [Zantac] 150 mg PO BID 12/22/17 07/27/18 History Aspirin 81 mg PO DAILY #30 chewable 12/24/17 07/27/18 Rx Albuterol Inhaler [Ventolin Hfa 2 puff INHALATION RT-Q6H 07/27/18 07/27/18 History Inhaler] Exenatide Microspheres [Bydureon 2 mg SQ WEEKLY 07/27/18 07/27/18 History Pen] Loratadine [Claritin] 10 mg PO DAILY 07/27/18 07/27/18 History Pioglitazone [Actos] 15 mg PO DAILY 07/27/18 07/27/18 History Sevelamer [Renvela] 800 mg PO TID 07/27/18 07/27/18 History Allergies Allergy/AdvReac Type Severity Reaction Status Date / Time LISINOPRIL Allergy Unknown Uncoded 07/27/18 22:44 STATINS AdvReac Unknown Uncoded 07/27/18 22:44 Physical Exam Vitals: Vital Signs Temp Pulse Pulse Resp BP Pulse Ox 07/30/18 13:27 74 07/30/18 13:17 72 07/30/18 08:25 97.7 F 70 16 104/44 93 L 07/30/18 07:53 72 07/30/18 07:43 70 07/30/18 03:43 70 17 07/30/18 03:41 98 F 70 17 119/62 95 07/29/18 23:57 70 17 07/29/18 23:55 97.8 F 70 17 125/65 89 L 07/29/18 20:53 72 07/29/18 20:42 72 07/29/18 20:00 97.4 F L 69 17 141/81 95 07/29/18 15:50 76 18 136/80 91 L Intake and Output 01/08/1607/30/18 07/30/18 22:59 06:59 14:59 Intake Total 640 400 240 Output Total 125 Balance 640 275 240 Intake: Oral 640 400 240 Output: Urine 125 Other: Voiding Method Toilet Toilet Toilet Diaper Diaper Diaper Incontinent Incontinent Incontinent # Voids 1 2 Weight 115 kg Results - Lab Results Most recent lab results Calcium 10.2 mg/dL (8.4-10.2) 07/30/18 06:47 Magnesium 2.3 mg/dL (1.6-2.3) 07/27/18 23:13 07/30/18 06:47 07/30/18 06:47 Assessment and Plan Plan: Assessment: 1. Nonoliguric acute kidney injury mostly prerenal secondary to diuresis. Creatinine 3.96 today. 2. Chronic kidney disease stage IV secondary to diabetic kidney disease with baseline creatinine in the range of 2.6-2.8. Patient was following with a software sales consultant out of [employer]. 3. Insulin-dependent diabetes mellitus. 4. Diastolic CHF with severe tricuspid regurgitation and severe pulmonary hypertension. 5. Chronic kidney disease mineral bone disease maintained on Renvela. 6. Presyncope. Pacemaker has been interrogated by cardiology. Rule out orthostasis. Plan: I will change Lasix to 40 mg orally twice daily. Encouraged oral intake. Avoid nephrotoxins. Check renal ultrasound. Check orthostatic vital signs. Repeat electrolytes in the morning. Thank you for the consultation. I will continue to follow patient with you during her hospital stay.
--- NOTE | 2018-07-30 15:10 | P.PN ---
Subjective Progress Note Date: 07/30/18 This is a very pleasant 73-year-old female patient who follows with Dr. Alvarado as her bioinformatician . She has a history of paroxysmal atrial fibrillation status post permanent pacemaker implantation, CVA/TIA, diabetes mellitus, DVT, GERD, hyperlipidemia, hypertension, osteoarthritis, chronic renal failure. She is a lifelong nonsmoker. At home she had developed increasing shortness of breath dizziness and lightheadedness and felt as though she may pass out to him a EMS was called.She was transferred here to the emergency room firm from [facility] with concerns regarding elevated troponins , elevated BNP and congestive heart failure. A chest x-ray there revealed evidence of decompensated congestive heart failure with a right-sided pleural effusion and hypoxia. Pacer was interrogated and is functioning appropriately. Orthostatics were obtained which came back to be negative. There is no evidence of loss of capture. Let pressure today 104/40 with a heart rate in the 70s, 93% on room air. White blood cell count 8.9, hemoglobin 11, platelet count 337. Sodium 141, potassium 5.0, BUN 78, creatinine 3.9. Echo cardiac gram with Doppler study was performed which revealed an ejection fraction of 55- 60%. Patient was seen today by nephrology, they decreased her dose of Lasix. Overall she feels well, sitting up in the chair, denies any dizziness or lightheadedness. Objective - Vital Signs Vital signs: Vital Signs Temp 97.7 F 07/30/18 08:25 Pulse 74 07/30/18 13:27 Resp 16 07/30/18 08:25 BP 104/44 07/30/18 08:25 Pulse Ox 93 L 07/30/18 08:25 Intake & Output 07/29/18 07/30/18 07/30/18 18:59 06:59 18:59 Intake Total 720 800 240 Output Total 300 125 Balance 420 675 240 Weight 115 kg Intake: Oral 720 800 240 Output: Urine 300 125 Other: Voiding Method Toilet Toilet Toilet Diaper Diaper Diaper Incontinent Incontinent Incontinent # Voids 1 2 - Exam General: The patient appeared well nourished and normally developed. HEENT: Head exam is unremarkable. Neck is without jugular venous distension. LUNGS: Lungs are clear to auscultation and percussion. Breath sounds decreased. HEART: Rate and Rhythm are regular. First and second heart sounds normal. No murmurs, rubs or gallops. ABDOMEN: Abdominal exam reveals normal bowel sounds. Non-tender and non- distended. No evidence of peritonitis. EXTREMITITES: No clubbing, cyanosis, or edema. - Labs CBC & Chem 7: 07/30/18 06:47 07/30/18 06:47 Labs: Abnormal Lab Results - Last 24 Hours (Table) 07/29/18 07/29/18 07/30/18 Range/Units 16:53 21:03 06:17 RBC (3.80-5.40) m/uL Hgb (11.4-16.0) gm/dL MCHC (31.0-37.0) g/dL RDW (11.5-15.5) % BUN (7-17) mg/dL Creatinine (0.52-1.04) mg/dL Glucose (74-99) mg/dL POC Glucose (mg/dL) 170 H 228 H 150 H (75-99) mg/dL 07/30/18 07/30/18 07/30/18 Range/Units 06:47 06:47 11:23 RBC 3.67 L (3.80-5.40) m/uL Hgb 11.0 L (11.4-16.0) gm/dL MCHC 30.6 L (31.0-37.0) g/dL RDW 18.2 H (11.5-15.5) % BUN 78 H (7-17) mg/dL Creatinine 3.96 H (0.52-1.04) mg/dL Glucose 156 H (74-99) mg/dL POC Glucose (mg/dL) 249 H (75-99) mg/dL Microbiology - Last 24 Hours (Table) 07/30/18 06:40 Urine Culture - Preliminary Urine,Clean Catch Assessment and Plan Plan: Assessment and plan #1 episode of dizziness and presyncope. Pacemaker was interrogated and is functioning appropriately. No evidence of loss of capture. No evidence of significant orthostatic hypotension. #2 history of pacemaker #3 congestive heart failure, diastolic, acute on chronic #4 severe pulmonary hypertension Plan We will continue to monitor the patient's telemetry, continue to check orthostatic heart rate and blood pressure. Dose was decreased today by nephrology, we'll continue to monitor renal function. According to the patient' s significant other, she had also recently been started on Antivert, she had not been taking that daily. Decrease the dose to 3 times a week. Consider increasing that back to a daily dose. DNP note has been reviewed, I agree with a documented findings and plan of care. Patient was seen and examined.
--- NOTE | 2018-07-30 16:34 | US ---
EXAMINATION TYPE: US kidneys/renal and bladder DATE OF EXAM: 07/30/2018 COMPARISON: NONE CLINICAL HISTORY: 73-year-old female with acute kidney injury. Abnormal labs. Patient voided 15 rojelio marleen prior. TECHNIQUE: Multiple sonographic images of the kidneys and bladder are obtained. FINDINGS: EXAM MEASUREMENTS: Right Kidney: 12.1 x 4.8 x 5.0 cm Left Kidney: 11.6 x 4.9 x 5.3 cm Right Kidney: Multiple cystic appearing lesions seen. Lower pole cyst with thin internal septations measures 2.0 x 1.6 x 2.0 cm. Mid lateral cyst measures 2.3 x 2.3 x 2.5 cm . No hydronephrosis. Left Kidney: No hydronephrosis. Multiple cystic appearing lesions seen. Largest upper pole lateral - 2.8 x 2.5 x 3.6 cm. Largest lower pole =5.1 x 4.4 x 4.9 cm Bladder: Under distention limits evaluation. Bilateral Jets not seen IMPRESSION: 1. No hydronephrosis. 2. Multiple bilateral renal cysts fissuring up to 5.1 cm. 3. Complex cyst with thickened internal septations measuring 2.0 cm in the right lower pole. Three-mo nth follow-up ultrasound recommended. If any suspicious changes are seen at that time, either renal m ass protocol CT or MRI would be recommended. Otherwise, the lesion can be followed by ultrasound.
[2018-07-30 17:03] LABS: Glucose,Whole Blood 173 mg/dL (75-99)
[2018-07-30] MEDS: FUROSEMIDE 40 MG TAB PO SCH (17:43)
[2018-07-30] MEDS: EZETIMIBE 10 MG TAB PO SCH (20:43)
[2018-07-30 21:09] LABS: Glucose,Whole Blood 179 mg/dL (75-99)
--- NOTE | 2018-07-30 21:47 | P.PN ---
Subjective Progress Note Date: 07/29/18 Progress note being dictated for Dr. Roberto Interval history: This is a 73-year-old female admitted with shortness of breath , acute CHF exacerbation in a patient with severe tricuspid regurgitation, severe pulmonary hypertension, and multiple other medical issues. Evaluated by cardiology and pulmonary. Maintained on nebulized bronchodilators, Lasix IV push. Breathing improving, sitting up in chair, maintaining O2 sats in the low 90s on room air. Creatinine 3.67, potassium decreased to 5. Afebrile. Objective - Vital Signs Vital signs: Vital Signs Temp 97.8 F 07/29/18 11:10 Pulse 76 07/29/18 15:50 Resp 18 07/29/18 15:50 BP 136/80 07/29/18 15:50 Pulse Ox 91 L 07/29/18 15:50 Intake & Output 07/29/18 07/29/18 07/30/18 06:59 18:59 06:59 Intake Total 240 720 Output Total 350 300 Balance -110 420 Weight 115.4 kg Intake: Oral 240 720 Output: Urine 350 300 Other: Voiding Method Toilet Toilet Diaper Diaper Incontinent Incontinent # Voids 1 1 - Exam PHYSICAL EXAM: VITAL SIGNS: As above GENERAL: Sitting up in bed, no acute distress HEENT: Conjunctivae normal. eyes normal. Oral mucosa moist NECK: No JVD. No thyroid enlargement. No LNs CARDIOVASCULAR: S1, S2 muffled. No murmur RESPIRATION: Breath sounds diminished in the bases. Occasional scattered rhonchi and bibasilar crackles. No wheezing. ABDOMEN: Soft, obese, nontender . No guarding. no masses palpable. Bowel sounds heard. LEGS: Positive bilateral leg edema PSYCHIATRY: Alert and oriented -3, mood and affect normal. NERVOUS SYSTEM: Cranial N 2-12 grossly normal. Moves all 4 limbs. Diffuse weakness No focal deficits. - Labs CBC & Chem 7: 07/30/18 06:47 07/30/18 06:47 Labs: Abnormal Lab Results - Last 24 Hours (Table) 07/27/18 07/29/18 07/29/18 Range/Units 23:13 05:54 05:54 RBC 3.46 L (3.80-5.40) m/uL Hgb 10.5 L (11.4-16.0) gm/dL MCHC 30.7 L (31.0-37.0) g/dL RDW 17.3 H (11.5-15.5) % BUN 74 H (7-17) mg/dL Creatinine 3.67 H (0.52-1.04) mg/dL Glucose 137 H (74-99) mg/dL POC Glucose (mg/dL) (75-99) mg/dL Hemoglobin A1c 6.1 H (4.0-6.0) % 07/29/18 07/29/18 07/29/18 Range/Units 05:58 11:42 16:53 RBC (3.80-5.40) m/uL Hgb (11.4-16.0) gm/dL MCHC (31.0-37.0) g/dL RDW (11.5-15.5) % BUN (7-17) mg/dL Creatinine (0.52-1.04) mg/dL Glucose (74-99) mg/dL POC Glucose (mg/dL) 142 H 163 H 170 H (75-99) mg/dL Hemoglobin A1c (4.0-6.0) % Assessment and Plan Assessment: -Acute on chronic CHF exacerbation, diastolic dysfunction, EF 50-60% -Severe tricuspid regurgitation, severe pulmonary hypertension per 2-D echo -Diabetes mellitus type 2 -Chronic Atrial fibrillation,History of permanent pacemaker placement -. Gastroesophageal reflux disease -Hypertension -Hyperlipidemia -Morbid obesity, BMI 44.9 Plan: Continue on current medication regime ,monitoring and symptomatic treatment. Maintain nebulized bronchodilators, Lasix.Close monitoring of renal function and electro lites with repeat labs ordered for a.m. and if renal function continues to worsen, will consult nephrology. Increase ambulation as tolerated. UA reported. Large leukocytes, mildly elevated WBCs, urine culture ordered. Pacemaker interrogation pending. The impression and plan of care has been dictated as directed. : I performed a history and examination of this patient, discussed the same with the dictator. I agree with the dictator's note ,documented as a scribe. Any additional findings or plans will be noted.
--- NOTE | 2018-07-30 22:07 | P.PN ---
Subjective Progress Note Date: 07/30/18 Progress note being dictated for Dr. Roberto Interval history: This is a 73-year-old female admitted with shortness of breath , acute CHF exacerbation in a patient with severe tricuspid regurgitation, severe pulmonary hypertension, and multiple other medical issues. Evaluated by cardiology and pulmonary. Maintained on nebulized bronchodilators, Lasix IV push. Breathing improving, sitting up in chair, maintaining O2 sats in the low 90s on room air. Creatinine 3.67, potassium decreased to 5. Afebrile. 07/30/17 . Diuresing on Lasix IV push, renal function worsening, creatinine 3.96 , baseline around 2.6. Systolic blood pressure lower this morning, in the low 100s. Pacemaker interrogated, reported as functioning appropriately as per cardiology. Afebrile, urine culture pending. Maintaining O2 sats in the mid 90s on room air. Objective - Vital Signs Vital signs: Vital Signs Temp 97.6 F 07/30/18 20:00 Pulse 70 07/30/18 20:00 Resp 17 07/30/18 20:00 BP 122/67 07/30/18 20:00 Pulse Ox 91 L 07/30/18 20:35 Intake & Output 07/30/18 07/30/18 07/31/18 06:59 18:59 06:59 Intake Total 800 480 400 Output Total 125 300 Balance 675 180 400 Weight 115 kg Intake: Oral 800 480 400 Output: Urine 125 300 Other: Voiding Method Toilet Toilet Toilet Diaper Diaper Diaper Incontinent Incontinent Incontinent # Voids 2 - Exam PHYSICAL EXAM: VITAL SIGNS: As above GENERAL: Sitting up in chair, no acute distress HEENT: Conjunctivae normal. eyes normal. Oral mucosa moist NECK: No JVD. No thyroid enlargement. No LNs CARDIOVASCULAR: S1, S2 muffled. No murmur RESPIRATION: Breath sounds diminished in the bases. Occasional scattered rhonchi, no crackles, no wheezing ABDOMEN: Soft, obese, nontender . No guarding. no masses palpable. Bowel sounds heard. LEGS: No edema, no clubbing, no cyanosis PSYCHIATRY: Alert and oriented -3, mood and affect normal. NERVOUS SYSTEM: Cranial N 2-12 grossly normal. Moves all 4 limbs. Diffuse weakness No focal deficits. - Labs CBC & Chem 7: 07/30/18 06:47 07/30/18 06:47 Labs: Abnormal Lab Results - Last 24 Hours (Table) 07/30/18 07/30/18 07/30/18 Range/Units 06:17 06:47 06:47 RBC 3.67 L (3.80-5.40) m/uL Hgb 11.0 L (11.4-16.0) gm/dL MCHC 30.6 L (31.0-37.0) g/dL RDW 18.2 H (11.5-15.5) % BUN 78 H (7-17) mg/dL Creatinine 3.96 H (0.52-1.04) mg/dL Glucose 156 H (74-99) mg/dL POC Glucose (mg/dL) 150 H (75-99) mg/dL 07/30/18 07/30/18 07/30/18 Range/Units 11:23 16:52 21:07 RBC (3.80-5.40) m/uL Hgb (11.4-16.0) gm/dL MCHC (31.0-37.0) g/dL RDW (11.5-15.5) % BUN (7-17) mg/dL Creatinine (0.52-1.04) mg/dL Glucose (74-99) mg/dL POC Glucose (mg/dL) 249 H 173 H 179 H (75-99) mg/dL Microbiology - Last 24 Hours (Table) 07/30/18 06:40 Urine Culture - Preliminary Urine,Clean Catch Assessment and Plan Assessment: -Acute on chronic CHF exacerbation, diastolic dysfunction, EF 50-60% -Severe tricuspid regurgitation, severe pulmonary hypertension per 2-D echo -Diabetes mellitus type 2 -Chronic Atrial fibrillation,History of permanent pacemaker placement -. Gastroesophageal reflux disease -Hypertension -Hyperlipidemia -Morbid obesity, BMI 44.9 Plan: Continue on current medication regime ,monitoring and symptomatic treatment. Nephrology consulted regarding worsening renal function, possibly decrease Lasix dose. Maintain nebulized bronchodilators. Close monitoring of renal function and electro lites with repeat labs ordered for a.m. urine culture pending. The impression and plan of care has been dictated as directed. : I performed a history and examination of this patient, discussed the same with the dictator. I agree with the dictator's note ,documented as a scribe. Any additional findings or plans will be noted.
[2018-07-31] MEDS: ALBUTEROL NEBULIZED 2.5 MG/3 ML INHALATION SCH ×4 (03:30→19:50)
[2018-07-31 05:57] LABS: Glucose,Whole Blood 146 mg/dL (75-99)
[2018-07-31] MEDS: INSULIN ASPART 100 UNIT/ML 1 ML 10 ML VIAL SQ SCH ×4 (06:46→21:20)
[2018-07-31] MEDS: SEVELAMER 800 MG TAB PO SCH ×3 (06:46→18:04)
[2018-07-31] MEDS ORDERED: ACETAMINOPHEN TAB 325 MG TAB PO PRN (07:09)
[2018-07-31 07:41] LABS: Anisocytosis Slight; Basophils # (A) 0.1 k/uL (0-0.2); Basophils % (A) 1 %; Eosinophils # (A) 0.2 k/uL (0-0.7); Eosinophils % (A) 2 %; HCT 34.3 % (34.0-46.0); HGB 10.4 gm/dL (11.4-16.0); Hypochromasia Moderate; Lymphocytes # (A) 0.9 k/uL (1.0-4.8); Lymphocytes % (A) 11 %; MCH 29.8 pg (25.0-35.0); MCHC 30.5 g/dL (31.0-37.0); MCV 97.8 fL (80.0-100.0); Macrocytosis Slight; Mean Platelet Volume 6.6; Monocytes # (A) 0.7 k/uL (0-1.0); Monocytes % (A) 8 %; Neutrophils # (A) 6.1 k/uL (1.3-7.7); Neutrophils % (A) 74 %; Platelet Count 296 k/uL (150-450); RBC 3.51 m/uL (3.80-5.40); RDW 18.4 % (11.5-15.5); WBC 8.3 k/uL (3.8-10.6)
[2018-07-31 07:57] LABS: Calcium 9.6 mg/dL (8.4-10.2); Magnesium 1.9 mg/dL (1.6-2.3); Potassium 4.8 mmol/L (3.5-5.1)
[2018-07-31] MEDS: FAMOTIDINE 20 MG TAB PO SCH (09:12)
[2018-07-31] MEDS: FUROSEMIDE 40 MG TAB PO SCH ×2 (09:12→18:04)
[2018-07-31] MEDS: CHOLECALCIFEROL 1,000 UNIT TAB PO SCH (09:12)
[2018-07-31] MEDS: ASPIRIN 81 MG PO SCH (09:12)
[2018-07-31] MEDS: MECLIZINE 25 MG TAB PO SCH (09:13)
[2018-07-31] MEDS: LORATADINE 10 MG TAB PO SCH (09:13)
[2018-07-31] MEDS: METOPROLOL TARTRATE 50 MG TAB PO SCH ×2 (09:13→19:26)
[2018-07-31] MEDS: PIOGLITAZONE 15 MG TAB PO SCH (09:15)
--- NOTE | 2018-07-31 10:40 | P.PN ---
Subjective Progress Note Date: 07/31/18 Principal diagnosis: Acute exacerbation of diastolic congestive heart failure This is a very pleasant 73-year-old female patient who follows with Dr. Avitia as her primary care physician. She has a history of atrial fibrillation status post permanent pacemaker implantation, CVA/TIA, diabetes mellitus, DVT, GERD, hyperlipidemia, hypertension, osteoarthritis, chronic renal failure. She is a lifelong nonsmoker. At home she had developed increasing shortness of breath dizziness and lightheadedness and felt as though she may pass out to him a EMS was called.She was transferred here to the emergency room firm from [facility] with concerns regarding elevated troponins , elevated BNP and congestive heart failure. A chest x-ray there revealed evidence of decompensated congestive heart failure with a right-sided pleural effusion and hypoxia. He did receive IV diuretics. By the time she was transferred here to our emergency room she is feeling quite a bit better. Her shortness of breath had improved significantly. No further dizziness or lightheadedness. The patient is seen today in consultation on the selective care unit. She is awake and alert in no acute distress. She is currently sitting up in a chair at the bedside. No worsening shortness of breath, cough or congestion. She states she is breathing quite a bit easier today as compared to yesterday. She is maintaining O2 saturations in the low 90s on room air. She's been afebrile. Hemodynamically stable. Chest x-ray shows no acute pulmonary process. White count 9.3. Hemoglobin 10.5. Creatinine 3.67. Remains on Lasix IV push every 8 hours. The patient is seen today 07/30/2017 in follow-up on the selective care unit. She is currently sitting up in a chair at the bedside. She is awake and alert in no acute distress. Maintaining good O2 saturations in the mid 90s on room air. She's been afebrile. Hemodynamically stable. Urine culture pending. White count 8.9. Hemoglobin 11.0. Creatinine 3.96. She remains on IV Lasix 40 mg every 8 hours. Chest x-ray had revealed no acute cardiopulmonary process. The patient is seen again today 07/31/2017 in follow-up on the selective care unit. She is awake and alert in no acute distress. Currently sitting up in a chair at the bedside. She denies any worsening shortness of breath, cough or congestion. Maintaining O2 saturations in the 90s on room air. She denies any chest pain, palpitations, lightheadedness or dizziness. She's been afebrile. Hemodynamically stable. No orthostatic hypotension noted. Urine culture pending. White count 8.3. Hemoglobin 10.4. Creatinine 3.75. Currently on oral Lasix 40 mg twice a day. Abdominal ultrasound revealed no evidence of hydronephrosis. There is multiple bilateral renal cysts measuring up to 5.1 cm. There is a complex cyst with thickened interstitial septums measuring 2.0 on the right lower pole. Nephrology is on the case. Objective - Vital Signs Vital signs: Vital Signs Temp 98.1 F 07/31/18 04:00 Pulse 68 07/31/18 08:13 Resp 17 07/31/18 04:00 BP 150/70 07/31/18 04:00 Pulse Ox 90 L 07/31/18 04:00 Intake & Output 07/30/18 07/31/18 07/31/18 18:59 06:59 18:59 Intake Total 480 900 240 Output Total 300 Balance 180 900 240 Weight 115.6 kg Intake: Oral 480 900 240 Output: Urine 300 Other: Voiding Method Toilet Toilet Diaper Diaper Incontinent Incontinent # Voids 2 - Exam GENERAL EXAM: Obese. Alert, active, comfortable in no apparent distress. On room air. HEAD: Normocephalic. EYES: Normal reaction of pupils, equal size. NOSE: Clear with pink turbinates. THROAT: No erythema or exudates. NECK: No masses, no JVD. CHEST: No chest wall deformity. LUNGS: Equal air entry with no crackles, wheeze, rhonchi or dullness. CVS: S1 and S2 normal with no audible murmur, regular rhythm. ABDOMEN: No hepatosplenomegaly, normal bowel sounds, no guarding or rigidity. SPINE: No scoliosis or deformity SKIN: No rashes CENTRAL NERVOUS SYSTEM: No focal deficits, tone is normal in all 4 extremities. EXTREMITIES: There is no peripheral edema. No clubbing, no cyanosis. Peripheral pulses are intact. - Labs CBC & Chem 7: 07/31/18 06:48 07/31/18 06:48 Labs: Abnormal Lab Results - Last 24 Hours (Table) 07/30/18 07/30/18 07/30/18 Range/Units 11:23 16:52 21:07 RBC (3.80-5.40) m/uL Hgb (11.4-16.0) gm/dL MCHC (31.0-37.0) g/dL RDW (11.5-15.5) % Lymphocytes # (1.0-4.8) k/uL BUN (7-17) mg/dL Creatinine (0.52-1.04) mg/dL Glucose (74-99) mg/dL POC Glucose (mg/dL) 249 H 173 H 179 H (75-99) mg/dL 07/31/18 07/31/18 07/31/18 Range/Units 05:55 06:48 06:48 RBC 3.51 L (3.80-5.40) m/uL Hgb 10.4 L (11.4-16.0) gm/dL MCHC 30.5 L (31.0-37.0) g/dL RDW 18.4 H (11.5-15.5) % Lymphocytes # 0.9 L (1.0-4.8) k/uL BUN 76 H (7-17) mg/dL Creatinine 3.75 H (0.52-1.04) mg/dL Glucose 149 H (74-99) mg/dL POC Glucose (mg/dL) 146 H (75-99) mg/dL Microbiology - Last 24 Hours (Table) 07/30/18 06:40 Urine Culture - Preliminary Urine,Clean Catch Assessment and Plan Assessment: Impression: #1 Acute exacerbation of diastolic congestive heart failure. Preserved left ventricular systolic function with ejection fraction 55-60%. #2 Severe pulmonary hypertension with an RVSP of 83 mmHg. #3 Acute on chronic renal failure. Ultrasound reveals multiple bilateral renal cysts. One complex cyst measuring 2.0 on the right lower pole. #4 Morbid obesity. #5 atrial fibrillation, status post permanent pacemaker implantation. #6 History of CVA/TIA. #7 Diabetes mellitus. #8 History of DVT. #9 Hyperlipidemia. #10 Hypertension. Plan: The patient was seen and evaluated by Dr. Shah. She remains stable from the pulmonary standpoint. Continue albuterol as needed. We'll continue diuretics for now. Cardiology is following. Nephrology is following. We will increase her activity as tolerated. We'll continue to follow and make further recommendations based on her clinical status. I, the cosigning physician, performed a history & physical examination of the patient. Lungs sounds are clear. Maintaining good O2 saturations in the 90s on room air. I discussed the assessment and plan of care with my nurse practitioner, Tiffani Sibley. I attest to the above consultation as dictated by her.
--- NOTE | 2018-07-31 11:00 | P.PN ---
Subjective Patient sitting comfortably in bed. She denies any dizziness. The pacemaker is functioning normally. No arrhythmias were detected on pacemaker interrogation Initially her orthostatics were negative but later on she did have dip in blood pressure She does have hypotension She is on metoprolol 50 mrem twice daily On examination but pressure 150/70 mmHg pulse rate in the 60s no respiratory distress No JVD Breath sounds are clear no rhonchi no crackles Heart sounds. Soft Impression Episode of syncope while sitting without any arrhythmias detected on telemetry. So far no pacemaker malfunction detected on telemetry Permanent pacemaker functioning normally No arrhythmias on pacemaker interrogation Suggest Discussed with the patient. We'll proceed with tilt table test tomorrow She does not need to be nothing by mouth for this and I would like the tilt table test done 2-3 hours after she has breakfast or 2 hours after lunch Labs are reviewed BUN 76 creatinine 3.75 hemoglobin 10.4 Objective - Vital Signs Vital signs: Vital Signs Temp 98.1 F 07/31/18 04:00 Pulse 68 07/31/18 08:13 Resp 17 07/31/18 04:00 BP 150/70 07/31/18 04:00 Pulse Ox 90 L 07/31/18 04:00 Intake & Output 07/30/18 07/31/18 07/31/18 18:59 06:59 18:59 Intake Total 480 900 240 Output Total 300 Balance 180 900 240 Weight 115.6 kg Intake: Oral 480 900 240 Output: Urine 300 Other: Voiding Method Toilet Toilet Diaper Diaper Incontinent Incontinent # Voids 2 - Labs CBC & Chem 7: 07/31/18 06:48 07/31/18 06:48 Labs: Abnormal Lab Results - Last 24 Hours (Table) 07/30/18 07/30/18 07/30/18 Range/Units 11:23 16:52 21:07 RBC (3.80-5.40) m/uL Hgb (11.4-16.0) gm/dL MCHC (31.0-37.0) g/dL RDW (11.5-15.5) % Lymphocytes # (1.0-4.8) k/uL BUN (7-17) mg/dL Creatinine (0.52-1.04) mg/dL Glucose (74-99) mg/dL POC Glucose (mg/dL) 249 H 173 H 179 H (75-99) mg/dL 07/31/18 07/31/18 07/31/18 Range/Units 05:55 06:48 06:48 RBC 3.51 L (3.80-5.40) m/uL Hgb 10.4 L (11.4-16.0) gm/dL MCHC 30.5 L (31.0-37.0) g/dL RDW 18.4 H (11.5-15.5) % Lymphocytes # 0.9 L (1.0-4.8) k/uL BUN 76 H (7-17) mg/dL Creatinine 3.75 H (0.52-1.04) mg/dL Glucose 149 H (74-99) mg/dL POC Glucose (mg/dL) 146 H (75-99) mg/dL Microbiology - Last 24 Hours (Table) 07/30/18 06:40 Urine Culture - Preliminary Urine,Clean Catch
[2018-07-31 12:09] LABS: Glucose,Whole Blood 214 mg/dL (75-99)
--- NOTE | 2018-07-31 12:15 | P.PN ---
Subjective Patient is seen in follow-up for acute kidney injury on chronic kidney disease. Patient has chronic kidney disease stage IV secondary to diabetic kidney disease based and creatinine in the range of 2.6-2.8 from November 2017. Creatinine peaked at 3.96 this admission and is slightly better at 3.75 today. Patient was receiving IV Lasix which was changed to oral yesterday. Oral intake is good. Admits to good urine output. Denies chest pain or shortness of breath. Patient has history of diastolic CHF with severe tricuspid regurgitation and pulmonary hypertension. Vital signs are stable. General: The patient appeared well nourished and normally developed. HEENT: Head exam is unremarkable. Neck is without jugular venous distension. LUNGS: Lungs are clear to auscultation and percussion. Breath sounds decreased. HEART: Rate and Rhythm are regular. First and second heart sounds normal. No murmurs, rubs or gallops. ABDOMEN: Abdominal exam reveals normal bowel sounds. Non-tender and non- distended. No evidence of peritonitis. EXTREMITITES: No clubbing, cyanosis, or edema. Objective - Vital Signs Vital signs: Vital Signs Temp 97.7 F 07/31/18 08:25 Pulse 64 07/31/18 08:25 Resp 18 07/31/18 08:25 BP 103/52 07/31/18 08:25 Pulse Ox 92 L 07/31/18 08:25 Intake & Output 07/30/18 07/31/18 07/31/18 18:59 06:59 18:59 Intake Total 480 900 240 Output Total 300 Balance 180 900 240 Weight 115.6 kg Intake: Oral 480 900 240 Output: Urine 300 Other: Voiding Method Toilet Toilet Toilet Diaper Diaper Diaper Incontinent Incontinent Incontinent # Voids 2 - Labs CBC & Chem 7: 07/31/18 06:48 07/31/18 06:48 Labs: Abnormal Lab Results - Last 24 Hours (Table) 07/30/18 07/30/18 07/31/18 Range/Units 16:52 21:07 05:55 RBC (3.80-5.40) m/uL Hgb (11.4-16.0) gm/dL MCHC (31.0-37.0) g/dL RDW (11.5-15.5) % Lymphocytes # (1.0-4.8) k/uL BUN (7-17) mg/dL Creatinine (0.52-1.04) mg/dL Glucose (74-99) mg/dL POC Glucose (mg/dL) 173 H 179 H 146 H (75-99) mg/dL 07/31/18 07/31/18 07/31/18 Range/Units 06:48 06:48 12:00 RBC 3.51 L (3.80-5.40) m/uL Hgb 10.4 L (11.4-16.0) gm/dL MCHC 30.5 L (31.0-37.0) g/dL RDW 18.4 H (11.5-15.5) % Lymphocytes # 0.9 L (1.0-4.8) k/uL BUN 76 H (7-17) mg/dL Creatinine 3.75 H (0.52-1.04) mg/dL Glucose 149 H (74-99) mg/dL POC Glucose (mg/dL) 214 H (75-99) mg/dL Microbiology - Last 24 Hours (Table) 07/30/18 06:40 Urine Culture - Final Urine,Clean Catch Assessment and Plan Plan: Assessment: 1. Nonoliguric acute kidney injury mostly prerenal secondary to diuresis. Creatinine peaked at 3.96 this admission and is 3.75 today. No hydronephrosis noted on renal ultrasound. 2. Chronic kidney disease stage IV secondary to diabetic kidney disease with baseline creatinine in the range of 2.6-2.8. Patient was following with a cloth bale header out of [employer]. 3. Insulin-dependent diabetes mellitus. 4. Diastolic CHF with severe tricuspid regurgitation and severe pulmonary hypertension. 5. Chronic kidney disease mineral bone disease maintained on Renvela. 6. Presyncope. Pacemaker has been interrogated by cardiology. Orthostatic vitals negative. Scheduled for tilt table test tomorrow. 7. Right kidney complex cyst. Will need to be monitored outpatient. Plan: Maintain Lasix 40 mg orally twice daily. Encouraged oral intake. Avoid nephrotoxins. Repeat electrolytes in the morning.
[2018-07-31] MEDS: SODIUM CHLORIDE 0.9% 1,000 ML IV SCH (15:33)
[2018-07-31 16:55] LABS: Glucose,Whole Blood 198 mg/dL (75-99)
[2018-07-31] MEDS: EZETIMIBE 10 MG TAB PO SCH (19:27)
[2018-07-31 21:29] LABS: Glucose,Whole Blood 162 mg/dL (75-99)
[2018-08-01] MEDS: ALBUTEROL NEBULIZED 2.5 MG/3 ML INHALATION SCH ×5 (01:32→19:43)
[2018-08-01 06:06] LABS: Glucose,Whole Blood 160 mg/dL (75-99)
[2018-08-01] MEDS: SEVELAMER 800 MG TAB PO SCH ×3 (06:18→17:38)
[2018-08-01] MEDS: INSULIN ASPART 100 UNIT/ML 1 ML 10 ML VIAL SQ SCH ×4 (06:18→20:10)
[2018-08-01 06:55] LABS: Anisocytosis Slight; HCT 36.1 % (34.0-46.0); HGB 11.3 gm/dL (11.4-16.0); Hypochromasia Slight; MCH 30.1 pg (25.0-35.0); MCHC 31.4 g/dL (31.0-37.0); MCV 95.9 fL (80.0-100.0); Macrocytosis Slight; Mean Platelet Volume 8.1; Platelet Count 213 k/uL (150-450); RBC 3.76 m/uL (3.80-5.40); RDW 17.7 % (11.5-15.5); WBC 8.7 k/uL (3.8-10.6)
[2018-08-01 07:24] LABS: Calcium 9.8 mg/dL (8.4-10.2)
[2018-08-01 07:27] LABS: Potassium 5.3 mmol/L (3.5-5.1)
[2018-08-01 07:43] LABS: Basophils # (M) 0.09 k/uL (0-0.2); Eosinophils # (M) 0.44 k/uL (0-0.7); Lymphocytes # (M) 0.96 k/uL (1.0-4.8); Neutrophils # (M) 6.53 k/uL (1.3-7.7); Neutrophils % (M) 75 %; Nucleated Red Blood Cells 0 /100 WBC (0-0); Polychromasia Present; Total Cells Counted 100
[2018-08-01 07:44] LABS: Poikilocytosis (M) Present
[2018-08-01] MEDS: ASPIRIN 81 MG PO SCH (08:12)
[2018-08-01] MEDS: LORATADINE 10 MG TAB PO SCH (08:12)
[2018-08-01] MEDS: CHOLECALCIFEROL 1,000 UNIT TAB PO SCH (08:12)
[2018-08-01] MEDS: PIOGLITAZONE 15 MG TAB PO SCH (08:12)
[2018-08-01] MEDS: FUROSEMIDE 40 MG TAB PO SCH (08:12)
[2018-08-01] MEDS: FAMOTIDINE 20 MG TAB PO SCH (08:12)
[2018-08-01] MEDS: MECLIZINE 25 MG TAB PO SCH (08:12)
[2018-08-01] MEDS: METOPROLOL TARTRATE 50 MG TAB PO SCH ×2 (08:30→19:25)
--- NOTE | 2018-08-01 09:19 | P.PN ---
Subjective Patient is seen in follow-up for acute kidney injury on chronic kidney disease. Patient has chronic kidney disease stage IV secondary to diabetic kidney disease based and creatinine in the range of 2.6-2.8 from November 2017. Creatinine peaked at 3.96 this admission. Stable at 3.77 today. Patient was receiving IV Lasix which was changed to oral on 07/30. Oral intake is good. Admits to good urine output. Denies chest pain or shortness of breath. Patient has history of diastolic CHF with severe tricuspid regurgitation and pulmonary hypertension. Vital signs are stable. General: The patient appeared well nourished and normally developed. HEENT: Head exam is unremarkable. Neck is without jugular venous distension. LUNGS: Lungs are clear to auscultation and percussion. Breath sounds decreased. HEART: Rate and Rhythm are regular. First and second heart sounds normal. No murmurs, rubs or gallops. ABDOMEN: Abdominal exam reveals normal bowel sounds. Non-tender and non- distended. No evidence of peritonitis. EXTREMITITES: No clubbing, cyanosis, or edema. Objective - Vital Signs Vital signs: Vital Signs Temp 98.8 F 08/01/18 08:00 Pulse 77 08/01/18 08:00 Resp 18 08/01/18 08:00 BP 90/58 08/01/18 08:00 Pulse Ox 90 L 08/01/18 08:00 Intake & Output 07/31/18 08/01/18 08/01/18 18:59 06:59 18:59 Intake Total 960 600 Balance 960 600 Weight 115.3 kg Intake: Oral 960 600 Other: Voiding Method Toilet Toilet Toilet Diaper Diaper Diaper Incontinent Incontinent Incontinent # Voids 3 1 - Labs CBC & Chem 7: 08/01/18 06:42 08/01/18 06:42 Labs: Abnormal Lab Results - Last 24 Hours (Table) 07/31/18 07/31/18 07/31/18 Range/Units 12:00 16:22 21:18 RBC (3.80-5.40) m/uL Hgb (11.4-16.0) gm/dL RDW (11.5-15.5) % Lymphocytes # (Manual) (1.0-4.8) k/uL Potassium (3.5-5.1) mmol/L BUN (7-17) mg/dL Creatinine (0.52-1.04) mg/dL Glucose (74-99) mg/dL POC Glucose (mg/dL) 214 H 198 H 162 H (75-99) mg/dL 08/01/18 08/01/18 08/01/18 Range/Units 06:05 06:42 06:42 RBC 3.76 L (3.80-5.40) m/uL Hgb 11.3 L (11.4-16.0) gm/dL RDW 17.7 H (11.5-15.5) % Lymphocytes # (Manual) 0.96 L (1.0-4.8) k/uL Potassium 5.3 H (3.5-5.1) mmol/L BUN 82 H (7-17) mg/dL Creatinine 3.77 H (0.52-1.04) mg/dL Glucose 156 H (74-99) mg/dL POC Glucose (mg/dL) 160 H (75-99) mg/dL Microbiology - Last 24 Hours (Table) 07/30/18 06:40 Urine Culture - Final Urine,Clean Catch Assessment and Plan Plan: Assessment: 1. Nonoliguric acute kidney injury mostly prerenal secondary to diuresis. Creatinine peaked at 3.96 this admission. Stable at 3.77 today. No hydronephrosis noted on renal ultrasound. 2. Chronic kidney disease stage IV secondary to diabetic kidney disease with baseline creatinine in the range of 2.6-2.8. Patient was following with a foundation director out of [place]. 3. Insulin-dependent diabetes mellitus. 4. Diastolic CHF with severe tricuspid regurgitation and severe pulmonary hypertension. 5. Chronic kidney disease mineral bone disease maintained on Renvela. 6. Presyncope. Pacemaker has been interrogated by cardiology. Orthostatic vitals negative but supine bp low. Scheduled for tilt table test today. 7. Right kidney complex cyst. Will need to be monitored outpatient. Plan: Decrease lasix to 40 mg once daily. Encouraged oral intake. Avoid nephrotoxins. Repeat electrolytes in the morning. Potassium level was slightly high at 5.3. However this was a hemolyzed sample. Will recheck.
[2018-08-01] MEDS ORDERED: SODIUM CHLORIDE 0.9% 250 ML IV ONE (09:57)
[2018-08-01 11:28] LABS: Glucose,Whole Blood 219 mg/dL (75-99)
--- NOTE | 2018-08-01 12:45 | P.PN ---
Subjective Patient underwent a tilt table test today. Tilt table test did not show any evidence for vasodepressive syncope nor did it show any evidence for dysautonomia Rehab noted dips in her blood pressure No arrhythmias are documented on pacemaker telemetry She is 100% paced and we have not noted any improvement and loss of capture of pacemaker malfunction while on telemetry We have noticed some dips in her blood pressure and it is quite possible that her syncopal spells are related to low blood pressure intermittently However she does have hypertension blood pressure ranges from 90/58 232/97 mmHg Dysautonomia was not noted on tilt table testing Objective - Vital Signs Vital signs: Vital Signs Temp 97.9 F 08/01/18 11:06 Pulse 71 08/01/18 11:16 Resp 18 08/01/18 11:06 BP 132/97 08/01/18 11:06 Pulse Ox 97 08/01/18 11:06 Intake & Output 07/31/18 08/01/18 08/01/18 18:59 06:59 18:59 Intake Total 960 600 265 Balance 960 600 265 Weight 115.3 kg Intake: IV 25 Oral 960 600 240 Other: Voiding Method Toilet Toilet Toilet Diaper Diaper Diaper Incontinent Incontinent Incontinent # Voids 3 1 1 - Labs CBC & Chem 7: 08/01/18 06:42 08/01/18 06:42 Labs: Abnormal Lab Results - Last 24 Hours (Table) 07/31/18 07/31/18 08/01/18 Range/Units 16:22 21:18 06:05 RBC (3.80-5.40) m/uL Hgb (11.4-16.0) gm/dL RDW (11.5-15.5) % Lymphocytes # (Manual) (1.0-4.8) k/uL Potassium (3.5-5.1) mmol/L BUN (7-17) mg/dL Creatinine (0.52-1.04) mg/dL Glucose (74-99) mg/dL POC Glucose (mg/dL) 198 H 162 H 160 H (75-99) mg/dL 08/01/18 08/01/18 08/01/18 Range/Units 06:42 06:42 11:23 RBC 3.76 L (3.80-5.40) m/uL Hgb 11.3 L (11.4-16.0) gm/dL RDW 17.7 H (11.5-15.5) % Lymphocytes # (Manual) 0.96 L (1.0-4.8) k/uL Potassium 5.3 H (3.5-5.1) mmol/L BUN 82 H (7-17) mg/dL Creatinine 3.77 H (0.52-1.04) mg/dL Glucose 156 H (74-99) mg/dL POC Glucose (mg/dL) 219 H (75-99) mg/dL Microbiology - Last 24 Hours (Table) 07/30/18 06:40 Urine Culture - Final Urine,Clean Catch
[2018-08-01 16:41] LABS: Glucose,Whole Blood 157 mg/dL (75-99)
[2018-08-01] MEDS: SODIUM CHLORIDE 0.9% 1,000 ML IV SCH (17:38)
[2018-08-01] MEDS: EZETIMIBE 10 MG TAB PO SCH (19:25)
[2018-08-01 20:03] LABS: Glucose,Whole Blood 195 mg/dL (75-99)
--- NOTE | 2018-08-01 22:17 | P.PN ---
Subjective Progress Note Date: 07/31/18 Progress note being dictated for Dr. Pardeep Wilkes history: This is a 73-year-old female admitted with shortness of breath , acute CHF exacerbation in a patient with severe tricuspid regurgitation, severe pulmonary hypertension, and multiple other medical issues. Evaluated by cardiology and pulmonary. Maintained on nebulized bronchodilators, Lasix IV push. Breathing improving, sitting up in chair, maintaining O2 sats in the low 90s on room air. Creatinine 3.67, potassium decreased to 5. Afebrile. 07/30/18 . Diuresing on Lasix IV push, renal function worsening, creatinine 3.96 , baseline around 2.6. Systolic blood pressure lower this morning, in the low 100s. Pacemaker interrogated, reported as functioning appropriately as per cardiology. Afebrile, urine culture pending. Maintaining O2 sats in the mid 90s on room air. 07/31/2018 good diet intake, no nausea or vomiting. converted from IV Lasix to oral Lasix yesterday, creatinine mildly improved, 3.75. Pacemaker interrogated reporting no arrhythmias detected/normal functioning. Yesterday afternoon, positive for mild orthostatic hypotension, subsided. Scheduled for tilt table tomorrow. Objective - Vital Signs Vital signs: Vital Signs Temp 97.7 F 07/31/18 20:00 Pulse 70 07/31/18 20:03 Resp 18 07/31/18 20:00 BP 132/63 07/31/18 20:00 Pulse Ox 96 07/31/18 20:00 Intake & Output 07/31/18 07/31/18 08/01/18 06:59 18:59 06:59 Intake Total 900 960 600 Balance 900 960 600 Weight 115.6 kg Intake: Oral 900 960 600 Other: Voiding Method Toilet Toilet Toilet Diaper Diaper Diaper Incontinent Incontinent Incontinent # Voids 2 3 1 - Exam PHYSICAL EXAM: VITAL SIGNS: As above GENERAL: Sitting up in chair, no acute distress HEENT: Conjunctivae normal. eyes normal. Oral mucosa moist NECK: No JVD. No thyroid enlargement. No LNs CARDIOVASCULAR: S1, S2 muffled. No murmur RESPIRATION: Breath sounds diminished in the bases. No rhonchi, no crackles, no wheezing ABDOMEN: Soft, nontender . No guarding. no masses palpable. Bowel sounds heard. LEGS: No edema, no clubbing, no cyanosis PSYCHIATRY: Alert and oriented -3, mood and affect normal. NERVOUS SYSTEM: Cranial N 2-12 grossly normal. Moves all 4 limbs. Diffuse weakness, No focal deficits. - Labs CBC & Chem 7: 08/01/18 06:42 08/01/18 12:20 Labs: Abnormal Lab Results - Last 24 Hours (Table) 07/31/18 07/31/18 07/31/18 Range/Units 05:55 06:48 06:48 RBC 3.51 L (3.80-5.40) m/uL Hgb 10.4 L (11.4-16.0) gm/dL MCHC 30.5 L (31.0-37.0) g/dL RDW 18.4 H (11.5-15.5) % Lymphocytes # 0.9 L (1.0-4.8) k/uL BUN 76 H (7-17) mg/dL Creatinine 3.75 H (0.52-1.04) mg/dL Glucose 149 H (74-99) mg/dL POC Glucose (mg/dL) 146 H (75-99) mg/dL 07/31/18 07/31/18 07/31/18 Range/Units 12:00 16:22 21:18 RBC (3.80-5.40) m/uL Hgb (11.4-16.0) gm/dL MCHC (31.0-37.0) g/dL RDW (11.5-15.5) % Lymphocytes # (1.0-4.8) k/uL BUN (7-17) mg/dL Creatinine (0.52-1.04) mg/dL Glucose (74-99) mg/dL POC Glucose (mg/dL) 214 H 198 H 162 H (75-99) mg/dL Microbiology - Last 24 Hours (Table) 07/30/18 06:40 Urine Culture - Final Urine,Clean Catch Assessment and Plan Assessment: -Acute on chronic CHF exacerbation, diastolic dysfunction, EF 50-60% -Severe tricuspid regurgitation, severe pulmonary hypertension per 2-D echo -Chronic kidney disease, stage IV -Diabetes mellitus type 2 -Chronic Atrial fibrillation,History of permanent pacemaker placement -. Gastroesophageal reflux disease -Hypertension -Hyperlipidemia -Morbid obesity, BMI 44.9 - Plan: Continue on current medication regime ,monitoring and symptomatic treatment. Maintain nebulized bronchodilators. Diuretics as per nephrology with close monitoring of renal function. repeat labs ordered for a.m. urine culture pending. Tilt table tomorrow with cardiology. The impression and plan of care has been dictated as directed. : I performed a history and examination of this patient, discussed the same with the dictator. I agree with the dictator's note ,documented as a scribe. Any additional findings or plans will be noted.
--- NOTE | 2018-08-01 22:31 | P.PN ---
Subjective Progress Note Date: 08/01/18 Progress note being dictated for Dr. Roberto Interval history: This is a 73-year-old female admitted with shortness of breath , acute CHF exacerbation in a patient with severe tricuspid regurgitation, severe pulmonary hypertension, and multiple other medical issues. Evaluated by cardiology and pulmonary. Maintained on nebulized bronchodilators, Lasix IV push. Breathing improving, sitting up in chair, maintaining O2 sats in the low 90s on room air. Creatinine 3.67, potassium decreased to 5. Afebrile. 07/30/18 . Diuresing on Lasix IV push, renal function worsening, creatinine 3.96 , baseline around 2.6. Systolic blood pressure lower this morning, in the low 100s. Pacemaker interrogated, reported as functioning appropriately as per cardiology. Afebrile, urine culture pending. Maintaining O2 sats in the mid 90s on room air. 07/31/2018 good diet intake, no nausea or vomiting. converted from IV Lasix to oral Lasix yesterday, creatinine mildly improved, 3.75. Pacemaker interrogated reporting no arrhythmias detected/normal functioning. Yesterday afternoon, positive for mild orthostatic hypotension, subsided. Scheduled for tilt table tomorrow. 08/01/18 no overnight events. Creatinine 3.96,lasix decreased. Telemetry 100% paced. Underwent tilt table today, reported no dysautonomia,no vasodepressive syncope afebrile, urine culture revealing polymicrobial specimen and Requesting urine culture be resubmitted. Objective - Vital Signs Vital signs: Vital Signs Temp 98.0 F 08/01/18 20:00 Pulse 71 08/01/18 20:00 Resp 18 08/01/18 20:00 BP 139/67 08/01/18 20:00 Pulse Ox 98 08/01/18 20:00 Intake & Output 08/01/18 08/01/18 08/02/18 06:59 18:59 06:59 Intake Total 600 865 160 Balance 600 865 160 Weight 115.3 kg Intake: IV 25 Intake, IV Titration 160 Amount Sodium Chloride 0.9% 1, 160 000 ml @ 20 mls/hr IV . Q24H [facility] Rx#:[id number] Oral 600 840 Other: Voiding Method Toilet Toilet Toilet Diaper Diaper Diaper Incontinent Incontinent Incontinent # Voids 1 1 1 - Labs CBC & Chem 7: 08/01/18 06:42 08/01/18 12:20 Labs: Abnormal Lab Results - Last 24 Hours (Table) 08/01/18 08/01/18 08/01/18 Range/Units 06:05 06:42 06:42 RBC 3.76 L (3.80-5.40) m/uL Hgb 11.3 L (11.4-16.0) gm/dL RDW 17.7 H (11.5-15.5) % Lymphocytes # (Manual) 0.96 L (1.0-4.8) k/uL Potassium 5.3 H (3.5-5.1) mmol/L BUN 82 H (7-17) mg/dL Creatinine 3.77 H (0.52-1.04) mg/dL Glucose 156 H (74-99) mg/dL POC Glucose (mg/dL) 160 H (75-99) mg/dL 08/01/18 08/01/18 08/01/18 Range/Units 11:23 16:19 20:01 RBC (3.80-5.40) m/uL Hgb (11.4-16.0) gm/dL RDW (11.5-15.5) % Lymphocytes # (Manual) (1.0-4.8) k/uL Potassium (3.5-5.1) mmol/L BUN (7-17) mg/dL Creatinine (0.52-1.04) mg/dL Glucose (74-99) mg/dL POC Glucose (mg/dL) 219 H 157 H 195 H (75-99) mg/dL Microbiology - Last 24 Hours (Table) 07/30/18 06:40 Urine Culture - Final Urine,Clean Catch Assessment and Plan Assessment: -Acute on chronic CHF exacerbation, diastolic dysfunction, EF 50-60% -Severe tricuspid regurgitation, severe pulmonary hypertension per 2-D echo -Chronic kidney disease, stage IV, secondary to chronic kidney disease -Diabetes mellitus type 2 -Chronic Atrial fibrillation,History of permanent pacemaker placement -. Gastroesophageal reflux disease -Hypertension -Hyperlipidemia -Morbid obesity, BMI 44.9- -status post tilt table reported no dysautonomia,no vasodepressive syncope Plan: Continue on current medication regime ,monitoring and symptomatic treatment. Maintain nebulized bronchodilators. Diuretics decreased as per nephrology with close monitoring of renal function. repeat labs ordered for a.m. urine culture resent . Discharge planning in progress for tomorrow pending cardiology clearance The impression and plan of care has been dictated as directed. : I performed a history and examination of this patient, discussed the same with the dictator. I agree with the dictator's note ,documented as a scribe. Any additional findings or plans will be noted.
[2018-08-01] MEDS ORDERED: ALBUTEROL NEBULIZED 2.5 MG/3 ML INHALATION PRN (23:16)
[2018-08-02 00:24] VITALS: RESP 16
[2018-08-02 06:13] LABS: Glucose,Whole Blood 178 mg/dL (75-99)
[2018-08-02] MEDS: INSULIN ASPART 100 UNIT/ML 1 ML 10 ML VIAL SQ SCH ×2 (06:16→12:38)
[2018-08-02] MEDS: SEVELAMER 800 MG TAB PO SCH ×2 (06:16→12:38)
[2018-08-02 06:43] LABS: Anisocytosis Slight; Basophils # (A) 0.1 k/uL (0-0.2); Basophils % (A) 1 %; Eosinophils # (A) 0.2 k/uL (0-0.7); Eosinophils % (A) 2 %; HCT 36.5 % (34.0-46.0); HGB 11.1 gm/dL (11.4-16.0); Hypochromasia Moderate; Lymphocytes # (A) 1.2 k/uL (1.0-4.8); Lymphocytes % (A) 14 %; MCH 30.4 pg (25.0-35.0); MCHC 30.5 g/dL (31.0-37.0); MCV 99.6 fL (80.0-100.0); Macrocytosis Slight; Monocytes # (A) 0.8 k/uL (0-1.0); Monocytes % (A) 10 %; Neutrophils # (A) 5.5 k/uL (1.3-7.7); Neutrophils % (A) 69 %; Platelet Count 250 k/uL (150-450); RBC 3.66 m/uL (3.80-5.40); RDW 18.4 % (11.5-15.5)
[2018-08-02 06:51] LABS: Calcium 9.9 mg/dL (8.4-10.2); Potassium 4.5 mmol/L (3.5-5.1)
[2018-08-02] MEDS ORDERED: FUROSEMIDE 40 MG TAB PO SCH (09:00)
[2018-08-02] MEDS: MECLIZINE 25 MG TAB PO SCH (09:10)
[2018-08-02] MEDS: LORATADINE 10 MG TAB PO SCH (09:10)
[2018-08-02] MEDS: FAMOTIDINE 20 MG TAB PO SCH (09:10)
[2018-08-02] MEDS: CHOLECALCIFEROL 1,000 UNIT TAB PO SCH (09:10)
[2018-08-02] MEDS: METOPROLOL TARTRATE 50 MG TAB PO SCH (09:10)
[2018-08-02] MEDS: ASPIRIN 81 MG PO SCH (09:10)
[2018-08-02] MEDS: PIOGLITAZONE 15 MG TAB PO SCH (09:11)
--- NOTE | 2018-08-02 09:12 | P.PN ---
Subjective Progress Note Date: 08/02/18 This is a 73-year-old female with chronic kidney disease stage IV baseline creatinine of about 2.8 since November 2017, came in with shortness of breath and has been diuresis. His creatinine has gone up and continues to go up in spite of reduction in Lasix dose. This morning she is feeling much better denies any shortness of breath. No dizziness. Appetite is good. No chest pain fever chills. She is known with diastolic failure with severe tricuspid regurg and pulmonary hypertension. Objective - Vital Signs Vital signs: Vital Signs Temp 98.1 F 08/02/18 04:00 Pulse 70 08/02/18 04:00 Resp 16 08/02/18 04:00 BP 104/56 08/02/18 04:00 Pulse Ox 95 08/02/18 04:00 Intake & Output 08/01/18 08/02/18 08/02/18 18:59 06:59 18:59 Intake Total 865 160 Output Total 100 Balance 865 60 Weight 115.1 kg Intake: IV 25 Intake, IV Titration 160 Amount Sodium Chloride 0.9% 1, 160 000 ml @ 20 mls/hr IV . Q24H [facility] Rx#:[id number] Oral 840 Output: Urine 100 Other: Voiding Method Toilet Toilet Diaper Diaper Incontinent Incontinent # Voids 1 1 On examination she is obese HEENT exam no JVP neck is supple no facial asymmetry Lungs are clear to auscultation with good air entry bilaterally Heart sounds are unremarkable for any murmur rub gallop Abdomen is obese protuberant but nontender Extremity exam was trace edema Neurologically awake alert oriented. - Labs CBC & Chem 7: 08/02/18 06:06 08/02/18 06:06 Labs: Abnormal Lab Results - Last 24 Hours (Table) 08/01/18 08/01/18 08/01/18 Range/Units 11:23 16:19 20:01 RBC (3.80-5.40) m/uL Hgb (11.4-16.0) gm/dL MCHC (31.0-37.0) g/dL RDW (11.5-15.5) % BUN (7-17) mg/dL Creatinine (0.52-1.04) mg/dL Glucose (74-99) mg/dL POC Glucose (mg/dL) 219 H 157 H 195 H (75-99) mg/dL 08/02/18 08/02/18 08/02/18 Range/Units 06:06 06:06 06:12 RBC 3.66 L (3.80-5.40) m/uL Hgb 11.1 L (11.4-16.0) gm/dL MCHC 30.5 L (31.0-37.0) g/dL RDW 18.4 H (11.5-15.5) % BUN 83 H (7-17) mg/dL Creatinine 3.86 H (0.52-1.04) mg/dL Glucose 158 H (74-99) mg/dL POC Glucose (mg/dL) 178 H (75-99) mg/dL Microbiology - Last 24 Hours (Table) 07/30/18 06:40 Urine Culture - Final Urine,Clean Catch Assessment and Plan Assessment: Impression 1. Acute kidney injury from prerenal possibly from diuresis with slightly low blood pressure. 2. Chronic kidney disease diabetic nephropathy baseline creatinine is 2.8 as of November 2017. 3. Diastolic heart failure. Currently on Lasix with reduced dose creatinine continues to go up possibly indicating an element of intravascular volume depletion. 4. Obesity Recommendation 1. Will hold Lasix today and reassess tomorrow before starting diuresis. Will watch her for congestive heart failure. Repeat her labs tomorrow.
[2018-08-02 09:13] VITALS: TEMP 97
[2018-08-02 11:58] LABS: Glucose,Whole Blood 250 mg/dL (75-99)
[2018-08-02 12:44] VITALS: BP 111/74; PULSE 71
--- NOTE | 2018-08-02 15:14 | P.PN ---
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 She has a history of paroxysmal atrial fibrillation status post permanent pacemaker implantation, CVA/TIA, diabetes mellitus, DVT, GERD, hyperlipidemia, hypertension, osteoarthritis, chronic renal failure. She is a lifelong nonsmoker. At home she had developed increasing shortness of breath dizziness and lightheadedness and felt as though she may pass out to him a EMS was called.She was transferred here to the emergency room firm from [facility] with concerns regarding elevated troponins , elevated BNP and congestive heart failure. A chest x-ray there revealed evidence of decompensated congestive heart failure with a right-sided pleural effusion and hypoxia. Pacer was interrogated and is functioning appropriately. Orthostatics were obtained which came back to be negative. There is no evidence of loss of capture. Let pressure today 104/40 with a heart rate in the 70s, 93% on room air. White blood cell count 8.9, hemoglobin 11, platelet count 337. Sodium 141, potassium 5.0, BUN 78, creatinine 3.9. Echo cardiac gram with Doppler study was performed which revealed an ejection fraction of 55- 60%. Patient was seen today by nephrology, they decreased her dose of Lasix. Overall she feels well, sitting up in the chair, denies any dizziness or lightheadedness. 08/02/2018 Patient was seen and examined this morning, patient did undergo a tilt table test which did not reveal any evidence of basal depressor syncope or dysautonomia. We have noticed some dips in her blood pressure and is quite possible that her syncopal spells are related to low blood pressure intermittently. She may be able to be discharged home today from cardiology's perspective to follow-up in the office post discharge. Objective - Vital Signs Vital signs: Vital Signs Temp 97 F L 08/02/18 08:00 Pulse 71 08/02/18 12:00 Resp 16 08/02/18 12:00 BP 111/74 08/02/18 12:00 Pulse Ox 95 08/02/18 12:00 Intake & Output 08/01/18 08/02/18 08/02/18 18:59 06:59 18:59 Intake Total 865 160 200 Output Total 100 Balance 865 60 200 Weight 115.1 kg Intake: IV 25 Intake, IV Titration 160 Amount Sodium Chloride 0.9% 1, 160 000 ml @ 20 mls/hr IV . Q24H [facility] Rx#:[id number] Oral 840 200 Output: Urine 100 Other: Voiding Method Toilet Toilet Toilet Diaper Diaper Diaper Incontinent Incontinent Incontinent # Voids 1 1 - Exam General: The patient appeared well nourished and normally developed. HEENT: Head exam is unremarkable. Neck is without jugular venous distension. LUNGS: Lungs are clear to auscultation and percussion. Breath sounds decreased. HEART: Rate and Rhythm are regular. First and second heart sounds normal. No murmurs, rubs or gallops. ABDOMEN: Abdominal exam reveals normal bowel sounds. Non-tender and non- distended. No evidence of peritonitis. EXTREMITITES: No clubbing, cyanosis, or edema. - Labs CBC & Chem 7: 08/02/18 06:06 08/02/18 06:06 Labs: Abnormal Lab Results - Last 24 Hours (Table) 08/01/18 08/01/18 08/02/18 Range/Units 16:19 20:01 06:06 RBC 3.66 L (3.80-5.40) m/uL Hgb 11.1 L (11.4-16.0) gm/dL MCHC 30.5 L (31.0-37.0) g/dL RDW 18.4 H (11.5-15.5) % BUN (7-17) mg/dL Creatinine (0.52-1.04) mg/dL Glucose (74-99) mg/dL POC Glucose (mg/dL) 157 H 195 H (75-99) mg/dL 08/02/18 08/02/18 08/02/18 Range/Units 06:06 06:12 11:52 RBC (3.80-5.40) m/uL Hgb (11.4-16.0) gm/dL MCHC (31.0-37.0) g/dL RDW (11.5-15.5) % BUN 83 H (7-17) mg/dL Creatinine 3.86 H (0.52-1.04) mg/dL Glucose 158 H (74-99) mg/dL POC Glucose (mg/dL) 178 H 250 H (75-99) mg/dL Microbiology - Last 24 Hours (Table) 08/02/18 00:16 Urine Culture - Preliminary Urine,Voided Assessment and Plan Plan: Assessment and plan #1 episode of dizziness and presyncope. Pacemaker was interrogated and is functioning appropriately. No evidence of loss of capture. No evidence of significant orthostatic hypotension. #2 history of pacemaker #3 congestive heart failure, diastolic, acute on chronic #4 severe pulmonary hypertension Plan From cardiology's perspective, patient may be able to be discharged home today. We'll make a follow-up appointment in the office post discharge. DNP note has been reviewed, I agree with a documented findings and plan of care. Patient was seen and examined.
--- NOTE | 2018-08-03 09:58 | DS ---
DISCHARGE SUMMARY FINAL DIAGNOSES: 1. Congestive heart failure acute exacerbation with acute on chronic diastolic dysfunction, ejection fraction 50-60 percent. 2. Severe tricuspid regurgitation, severe pulmonary hypertension per 2D echo. 3. Chronic kidney stage 4 secondary to chronic kidney disease and diabetes mellitus. 4. Diabetes mellitus type 2. 5. Chronic atrial fibrillation. 6. History of pacemaker. 7. History of gastroesophageal reflux disease. 8. Hypertension. 9. Hyperlipidemia. 10.Morbid obesity. 11.Status post tilt table test, which is normal. DISCHARGE DISPOSITION: The patient is being discharged in stable condition with guarded prognosis. Total time taken 35 minutes. HISTORY OF PRESENT ILLNESS: This 73-year-old woman with a past medical history of multiple medical problems, admitted with CHF acute exacerbation treated with diuretics. Creatinine is also elevated. Patient treated symptomatically. Patient is also orthostatic hypotensive. Tilt table was negative. The patient was seen by multiple consultants, Cardiology and Nephrology. Patient improved significantly. The patient being discharged in stable condition with guarded prognosis. On exam, vital signs are stable. Cardiovascular S1, S2. Abdomen soft. Central nervous system: No focal deficits. DISCHARGE ADVICE AND MEDICATIONS: 1. Diet is cardiac diet. 2. Activity limited until follow up. 3. Follow up with Dr. Avitia in 2-3 days. 4. Follow up with Cardiology and Nephrology as recommended. MEDICATIONS: 1. Albuterol 2 puffs q.6h. 2. Bumex 0.5 mg p.o. daily. 3. Vitamin D3 1000 daily. 4. Exenatide 2 mg subcu weekly. 5. Zetia 10 mg q.h.s. 6. Claritin 10 mg daily. 7. Meclizine 12.5 mg daily. 8. Lopressor 50 mg p.o. b.i.d. 9. Actos 15 mg p.o. daily. 10.Zantac 150 mg p.o. b.i.d. 11.Renvela 800 mg p.o. t.i.d. 12.Tylenol 650 q.4h p.r.n. 13.Aspirin 81 mg p.o. daily. MMODL / IJN: [id number] /
[2018-08-04] MEDS ORDERED: EXENATIDE MICROSPHERES SQ SCH (09:00)
--- NOTE | 2018-08-04 12:23 | P.PCN ---
Preoperative Diagnosis: Diagnosis Syncope Twelve-lead ECG shows paced rhythm. This was done as an inpatient No arrhythmias on pacemaker telemetry. No arrhythmias on telemetry while in the hospital Tilt table test per protocol Baseline blood pressure 147/66. His mercury Baseline heart is 69 beats a minute Patient was tilted upright at an angle of 70 per protocol there was no change in her heart rate no change in her blood pressures remained asymptomatic through the test Impression Normal heart rate and blood pressure response to upright tilting No evidence for any tachycardia or bradycardia arrhythmias on twelve-lead ECG on cardiac telemetry or on pacemaker telemetry
== END 2018-08-02 16:52 | disposition home health service (06) | DRG 291 ==
LOC: EC 22:29 → 3SCARD 07-28
PROVIDERS: ADMIT Hospitalist; ATTEND Hospitalist
PROC: 4A02XFZ Measurement of Cardiac Rhythm, External Approach (ICD-10-PCS; principal; 2018-08-01 10:00)
PROC: 4A03XB1 Measurement of Arterial Pressure, Peripheral, External Approach (ICD-10-PCS; principal; 2018-08-01 10:00)
DX: I13.0 Hypertensive heart and chronic kidney disease with heart failure and stage 1 through stage 4 chronic kidney disease, or unspecified chronic kidney disease (principal); I50.33 Acute on chronic diastolic (congestive) heart failure; N17.9 Acute kidney failure, unspecified; N18.4 Chronic kidney disease, stage 4 (severe); Z68.41 Body mass index [BMI] 40.0-44.9, adult; E11.21 Type 2 diabetes mellitus with diabetic nephropathy; E11.22 Type 2 diabetes mellitus with diabetic chronic kidney disease; E66.01 Morbid (severe) obesity due to excess calories; E78.5 Hyperlipidemia, unspecified; I07.1 Rheumatic tricuspid insufficiency; I25.10 Atherosclerotic heart disease of native coronary artery without angina pectoris; I27.20 Pulmonary hypertension, unspecified; I48.0 Paroxysmal atrial fibrillation; I48.2 Chronic atrial fibrillation; I95.1 Orthostatic hypotension; J45.909 Unspecified asthma, uncomplicated; K21.9 Gastro-esophageal reflux disease without esophagitis; M19.90 Unspecified osteoarthritis, unspecified site; N28.1 Cyst of kidney, acquired; R09.02 Hypoxemia; T50.2X5A Adverse effect of carbonic-anhydrase inhibitors, benzothiadiazides and other diuretics, initial encounter; Z79.4 Long term (current) use of insulin; Z79.82 Long term (current) use of aspirin; Z79.899 Other long term (current) drug therapy; Z82.49 Family history of ischemic heart disease and other diseases of the circulatory system; Z86.718 Personal history of other venous thrombosis and embolism; Z86.73 Personal history of transient ischemic attack (TIA), and cerebral infarction without residual deficits; Z90.49 Acquired absence of other specified parts of digestive tract; Z95.0 Presence of cardiac pacemaker
CPT/HCPCS: 36415; 71046; 76770; 80048; 80053; 81001; 82550; 82553; 83036; 83735; 83880; 84132; 84484; 85025; 85610; 85730; 87077; 87086; 87186; 93005; 93306; 93660; 94640; 96374; 96376; 99285

== ENCOUNTER 2018-08-19 14:31 | Inpatient (IN) | payer MEDICARE, OTHER ==
--- NOTE | 2018-08-19 15:43 | ED ---
General Adult HPI - General Source: patient, RN notes reviewed Mode of arrival: wheelchair Limitations: no limitations <Miah Palomo - Last Filed: 08/19/18 16:59> <Miah Eli - Last Filed: 08/19/18 17:55> - General Chief complaint: Shortness of Breath Stated complaint: RAMON Time Seen by Provider: 08/19/18 14:40 - History of Present Illness Initial comments: Is a 73-year-old female who comes to the emergency department complaining of shortness of breath. According to the the patient was assessed at home by a nurse and was told to come to the emergency department because she was hypoxic. Patient entered the emergency department on room air and was satting 85%. Patient states the symptoms have worsened for quite a while now. Patient states over the last week it has been getting significantly worse. Patient denies any chest pain or palpitations. Patient denies any recent fever chills however the patient states she does have a cough but has not been coughing up any sputum. Patient states she has some edema to her feet but it hasn't got any worse than normal. Patient denies any abdominal pain. Patient denies any nausea or vomiting. Patient denies any diarrhea. Patient denies any lightheadedness dizziness or nursing about so. Patient denies any headache patient denies numbness or weakness. (Miah Palomo) - Related Data Home Medications Medication Instructions Recorded Confirmed Bumetanide [BUMEX] 0.5 mg PO DAILY 12/22/17 08/19/18 Cholecalciferol [Vitamin D3] 1,000 unit PO DAILY 12/22/17 08/19/18 Ezetimibe [Zetia] 10 mg PO HS 12/22/17 08/19/18 Metoprolol Tartrate [Lopressor] 50 mg PO BID 12/22/17 08/19/18 Ranitidine HCl [Zantac] 150 mg PO BID 12/22/17 08/19/18 Albuterol Inhaler [Ventolin Hfa 2 puff INHALATION RT-Q6H PRN 07/27/18 08/19/18 Inhaler] Loratadine [Claritin] 10 mg PO DAILY 07/27/18 08/19/18 Pioglitazone [Actos] 15 mg PO DAILY 07/27/18 08/19/18 Sevelamer [Renvela] 800 mg PO TID 07/27/18 08/19/18 Albuterol Nebulized [Ventolin 2.5 mg INHALATION RT-TID PRN 08/19/18 08/19/18 Nebulized] Ascorbic Acid [Vitamin C] 500 mg PO DAILY 08/19/18 08/19/18 Insulin Detemir [Levemir Flextouch] 55 units SQ DAILY 08/19/18 08/19/18 Meclizine HCl 25 mg PO DAILY 08/19/18 08/19/18 [place]-3 Acid Ethyl Esters [Lovaza] 2 gm PO BID 08/19/18 08/19/18 Oxybutynin Chloride [Oxybutynin 10 mg PO DAILY 08/19/18 08/19/18 Chloride ER] Vitamin E 1,000 unit PO DAILY 08/19/18 08/19/18 Previous Rx's Medication Instructions Recorded Aspirin 81 mg PO DAILY #30 chewable 12/24/17 Acetaminophen Tab [Tylenol] 650 mg PO Q4HR PRN tab 08/02/18 Allergies Allergy/AdvReac Type Severity Reaction Status Date / Time lisinopril Allergy Itching Verified 08/19/18 15:25 Yktmpgw-Vhz-Sak Reductase Allergy Itching Verified 08/19/18 15:25 Inhibitor Review of Systems ROS Other: All systems not noted in ROS Statement are negative. <Miah Palomo - Last Filed: 08/19/18 16:59> ROS Other: All systems not noted in ROS Statement are negative. <Miah Eli - Last Filed: 08/19/18 17:55> ROS Statement: Those systems with pertinent positive or pertinent negative responses have been documented in the HPI. Past Medical History Past Medical History: Atrial Fibrillation, Asthma, Heart Failure, CVA/TIA, Diabetes Mellitus, Deep Vein Thrombosis (DVT), Eye Disorder, GERD/Reflux, Hyperlipidemia, Hypertension, Osteoarthritis (OA), Renal Disease History of Any Multi-Drug Resistant Organisms: None Reported Past Surgical History: Adenoidectomy, Appendectomy, Cholecystectomy, Pacemaker, Tonsillectomy Past Anesthesia/Blood Transfusion Reactions: No Reported Reaction Type of Cardiac Device: Permanent Pacemaker Device Placement Date:: 2016 Past Psychological History: No Psychological Hx Reported Smoking Status: Never smoker Past Alcohol Use History: None Reported Past Drug Use History: None Reported - Past Family History Father Family Medical History: Myocardial Infarction (NM) Additional Family Medical History / Comment(s): RHEUMATIC FEVER <Miah Palomo - Last Filed: 08/19/18 16:59> General Exam Limitations: no limitations <Miah Palomo - Last Filed: 08/19/18 16:59> <Miah Eli - Last Filed: 08/19/18 17:55> - General Exam Comments Initial Comments: GENERAL: Patient is well-developed and well-nourished. Patient is nontoxic and well- hydrated and is in mild distress. ENT: Neck is soft and supple. No significant lymphadenopathy is noted. Oropharynx is clear. Moist mucous membranes. Neck has full range of motion without eliciting any pain. EYES: The sclera were anicteric and conjunctiva were pink and moist. Extraocular movements were intact and pupils were equal round and reactive to light. Eyelids were unremarkable. PULMONARY: Unlabored respirations. Good breath sounds bilaterally. No audible rales rhonchi or wheezing was noted. CARDIOVASCULAR: There is a regular rate and rhythm without any murmurs gallops or rubs. ABDOMEN: Soft and nontender with normal bowel sounds. No palpable organomegaly was noted. There is no palpable pulsatile mass. SKIN: Skin is clear with no lesions or rashes and otherwise unremarkable. NEUROLOGIC: Patient is alert and oriented x3. Cranial nerves II through XII are grossly intact. Motor and sensory are also intact. Normal speech, volume and content. Symmetrical smile. MUSCULOSKELETAL: Normal extremities with adequate strength and full range of motion. 1+ edema LYMPHATICS: No significant lymphadenopathy is noted PSYCHIATRIC: Normal psychiatric evaluation. (Miah Palomo) Course <Miah Palomo - Last Filed: 08/19/18 16:59> <Miah Eli - Last Filed: 08/19/18 17:55> Vital Signs 08/19/18 08/19/18 14:36 17:39 Temperature 98 F Pulse Rate 70 71 Respiratory 22 18 Rate Blood Pressure 169/75 O2 Sat by Pulse 91 L Oximetry - Reevaluation(s) Reevaluation #1: 08/19/18 17:55 Medical records reviewed (Miah Eli) Reevaluation #2: 08/19/18 17:55 Condition is improved with breathing treatment here in the ER (Miah Eli) Medical Decision Making - Lab Data Result diagrams: 08/19/18 15:38 08/19/18 15:38 <Miah Palomo - Last Filed: 08/19/18 16:59> - Lab Data Result diagrams: 08/19/18 15:38 08/19/18 15:38 - Radiology Data Radiology results: report reviewed (Chest x-ray is positive for CHF), image reviewed <Miah Eli - Last Filed: 08/19/18 17:55> - Medical Decision Making EKG shows ventricular paced rhythm with PVCs at a rate of 83 bpm QRS is under 92 QT interval is [address] Eli will be taking over the care of this patient at 5 PM (Miah Palomo) 73 female the ER for evaluation CHF and asthma history with hypoxia. Patient also has elevated d-dimer with renal failure, will place on heparin secondary to possibility of blood clot, patient will achieve VQ scan, will place on breathing treatments and Lasix (Miah Eli) - Lab Data Lab Results 08/19/18 08/19/18 08/19/18 Range/Units 15:38 15:38 15:38 WBC 7.5 (3.8-10.6) k/uL RBC 3.72 L (3.80-5.40) m/uL Hgb 11.5 (11.4-16.0) gm/dL Hct 36.7 (34.0-46.0) % MCV 98.5 (80.0-100.0) fL MCH 30.9 (25.0-35.0) pg MCHC 31.4 (31.0-37.0) g/dL RDW 17.4 H (11.5-15.5) % Plt Count 352 (150-450) k/uL Neutrophils % 69 % Lymphocytes % 14 % Monocytes % 9 % Eosinophils % 4 % Basophils % 2 % Neutrophils # 5.2 (1.3-7.7) k/uL Lymphocytes # 1.0 (1.0-4.8) k/uL Monocytes # 0.7 (0-1.0) k/uL Eosinophils # 0.3 (0-0.7) k/uL Basophils # 0.1 (0-0.2) k/uL Hypochromasia Moderate Anisocytosis Slight Macrocytosis Slight PT (9.0-12.0) sec INR (<1.2) APTT (22.0-30.0) sec D-Dimer (<0.60) mg/L FEU Sodium 140 (137-145) mmol/L Potassium 5.4 H (3.5-5.1) mmol/L Chloride 110 H (98-107) mmol/L Carbon Dioxide 21 L (22-30) mmol/L Anion Gap 9 mmol/L BUN 64 H (7-17) mg/dL Creatinine 3.08 H (0.52-1.04) mg/dL Est GFR (CKD-EPI)AfAm 17 (>60 ml/min/1.73 sqM) Est GFR (CKD-EPI)NonAf 15 (>60 ml/min/1.73 sqM) Glucose 75 (74-99) mg/dL Calcium 10.7 H (8.4-10.2) mg/dL Magnesium 2.3 (1.6-2.3) mg/dL Total Bilirubin 0.8 (0.2-1.3) mg/dL AST 25 (14-36) U/L ALT 22 (9-52) U/L Alkaline Phosphatase 79 (38-126) U/L Total Creatine Kinase <20 L (30-135) U/L CK-MB (CK-2) 0.6 (0.0-2.4) ng/mL CK-MB (CK-2) Rel Index Troponin I <0.012 (0.000-0.034) ng/mL NT-Pro-B Natriuret Pep pg/mL Total Protein 7.1 (6.3-8.2) g/dL Albumin 4.0 (3.5-5.0) g/dL 08/19/18 08/19/18 Range/Units 15:38 15:38 WBC (3.8-10.6) k/uL RBC (3.80-5.40) m/uL Hgb (11.4-16.0) gm/dL Hct (34.0-46.0) % MCV (80.0-100.0) fL MCH (25.0-35.0) pg MCHC (31.0-37.0) g/dL RDW (11.5-15.5) % Plt Count (150-450) k/uL Neutrophils % % Lymphocytes % % Monocytes % % Eosinophils % % Basophils % % Neutrophils # (1.3-7.7) k/uL Lymphocytes # (1.0-4.8) k/uL Monocytes # (0-1.0) k/uL Eosinophils # (0-0.7) k/uL Basophils # (0-0.2) k/uL Hypochromasia Anisocytosis Macrocytosis PT 10.3 (9.0-12.0) sec INR 1.0 (<1.2) APTT 22.1 (22.0-30.0) sec D-Dimer 1.50 H (<0.60) mg/L FEU Sodium (137-145) mmol/L Potassium (3.5-5.1) mmol/L Chloride (98-107) mmol/L Carbon Dioxide (22-30) mmol/L Anion Gap mmol/L BUN (7-17) mg/dL Creatinine (0.52-1.04) mg/dL Est GFR (CKD-EPI)AfAm (>60 ml/min/1.73 sqM) Est GFR (CKD-EPI)NonAf (>60 ml/min/1.73 sqM) Glucose (74-99) mg/dL Calcium (8.4-10.2) mg/dL Magnesium (1.6-2.3) mg/dL Total Bilirubin (0.2-1.3) mg/dL AST (14-36) U/L ALT (9-52) U/L Alkaline Phosphatase (38-126) U/L Total Creatine Kinase (30-135) U/L CK-MB (CK-2) (0.0-2.4) ng/mL CK-MB (CK-2) Rel Index Troponin I (0.000-0.034) ng/mL NT-Pro-B Natriuret Pep 5260 pg/mL Total Protein (6.3-8.2) g/dL Albumin (3.5-5.0) g/dL Critical Care Time Critical Care Time: Yes Total Critical Care Time: 31 <Miah Eli - Last Filed: 08/19/18 17:55> Disposition <Miah Palomo - Last Filed: 08/19/18 16:59> Is patient prescribed a controlled substance at d/c from ED?: No <Miah Eli - Last Filed: 08/19/18 17:55> Clinical Impression: Congestive heart failure, Acute pulmonary edema, Acute exacerbation of chronic obstructive airways disease, Hypoxia, Acute decompensated heart failure Disposition: ADMITTED IP TO THIS HOSP Condition: Fair Referrals: Marc Avitia MD [Primary Care Provider] - 1-2 days
[2018-08-19 16:19] LABS: Anisocytosis Slight; Basophils # (A) 0.1 k/uL (0-0.2); Basophils % (A) 2 %; Eosinophils # (A) 0.3 k/uL (0-0.7); Eosinophils % (A) 4 %; HCT 36.7 % (34.0-46.0); HGB 11.5 gm/dL (11.4-16.0); Hypochromasia Moderate; Lymphocytes % (A) 14 %; MCH 30.9 pg (25.0-35.0); MCHC 31.4 g/dL (31.0-37.0); MCV 98.5 fL (80.0-100.0); Macrocytosis Slight; Mean Platelet Volume 6.6; Monocytes # (A) 0.7 k/uL (0-1.0); Monocytes % (A) 9 %; Neutrophils # (A) 5.2 k/uL (1.3-7.7); Neutrophils % (A) 69 %; Platelet Count 352 k/uL (150-450); RBC 3.72 m/uL (3.80-5.40); RDW 17.4 % (11.5-15.5); WBC 7.5 k/uL (3.8-10.6)
[2018-08-19 16:30] LABS: Potassium 5.4 mmol/L (3.5-5.1)
[2018-08-19 16:31] LABS: Calcium 10.7 mg/dL (8.4-10.2); Magnesium 2.3 mg/dL (1.6-2.3); Total Bilirubin 0.8 mg/dL (0.2-1.3); Total Protein 7.1 g/dL (6.3-8.2)
[2018-08-19 16:32] LABS: Partial Thromboplastin Time 22.1 sec (22.0-30.0); Prothrombin Time 10.3 sec (9.0-12.0)
[2018-08-19 16:46] LABS: D-Dimer 1.5 mg/L FEU (<0.60)
[2018-08-19 16:47] LABS: Creatine Kinase <20 U/L (30-135)
[2018-08-19 17:00] LABS: Creatine Kinase MB 0.6 ng/mL (0.0-2.4); Troponin I <0.012 ng/mL (0.000-0.034)
[2018-08-19] MEDS ORDERED: IPRATROPIUM 0.5 MG/2.5 ML NEBU INHALATION STA (17:03)
[2018-08-19] MEDS ORDERED: ALBUTEROL NEBULIZED 2.5 MG/3 ML INHALATION STA (17:03)
[2018-08-19] MEDS ORDERED: ACETAMINOPHEN TAB 325 MG TAB PO PRN (17:26)
[2018-08-19] MEDS ORDERED: ALBUTEROL NEBULIZED 2.5 MG/3 ML INHALATION PRN (17:26)
--- NOTE | 2018-08-19 17:40 | P.HPIM ---
History of Present Illness 73-year-old female was brought in by a friend to get the assessment for hypoxia and home oxygen evaluation. Patient's saturations are low normal. Patient does have crackles in bilateral pedal edema on exam although I cannot really assess for JVD patient appears to have chronic diastolic dysfunction. Patient appears to severe pulmonary hypertension, cor pulmonale. Patient does have bibasilar crackles on exam chest x-ray is not available at this time BNP is elevated. Patient does have chronic kidney disease patient was hospitalized in the past for near syncopal episodes of dizziness. Was extensively evaluated in the past patient has a pacemaker does have history of atrial fibrillation not on anticoagulation because of her falls and the poor renal function. Patient never had any sleep study does have severe pulmonary hypertension with RV severity which is probably causing most of her problems. Patient does have elevated d-dimer but that there is no evidence of pulmonary embolism clinically patient denied any chest pain patient is on Bumex patient does have chronic kidney disease stage IV. She was started on IV Lasix will await chest x-ray results will also get the opinion from nephrology regarding diuretic therapy testing her chronic kidney disease stage IV. Patient appears to be volume overloaded secondary to severe pulmonary hypertension and right-sided heart failure mostly. Patient was complaining of shortness of breath minimal denied any chest pain, was complaining of minimal cough without any sputum production Review of Systems REVIEW OF SYSTEMS: CONSTITUTIONAL: No fever, no malaise, no fatigue. HEENT: No recent visual problems or hearing problems. Denied any sore throat. CARDIOVASCULAR: No chest pain, orthopnea, PND, no palpitations, no syncope. PULMONARY: no hemoptysis. GASTROINTESTINAL: No diarrhea, no nausea, no vomiting, no abdominal pain. NEUROLOGICAL: No headaches, no weakness, no numbness. HEMATOLOGICAL: Denies any bleeding or petechiae. GENITOURINARY: Denies any burning micturition, frequency, or urgency. MUSCULOSKELETAL/RHEUMATOLOGICAL: Denies any joint pain, swelling, or any muscle pain. ENDOCRINE: Denies any polyuria or polydipsia. The rest of the 14-point review of systems is negative. Past Medical History Past Medical History: Atrial Fibrillation, Asthma, Heart Failure, CVA/TIA, Diabetes Mellitus, Deep Vein Thrombosis (DVT), Eye Disorder, GERD/Reflux, Hyperlipidemia, Hypertension, Osteoarthritis (OA), Renal Disease History of Any Multi-Drug Resistant Organisms: None Reported Past Surgical History: Adenoidectomy, Appendectomy, Cholecystectomy, Pacemaker, Tonsillectomy Past Anesthesia/Blood Transfusion Reactions: No Reported Reaction Type of Cardiac Device: Permanent Pacemaker Device Placement Date:: 2016 Past Psychological History: No Psychological Hx Reported Smoking Status: Never smoker Past Alcohol Use History: None Reported Past Drug Use History: None Reported - Past Family History Father Family Medical History: Myocardial Infarction ([place]) Additional Family Medical History / Comment(s): RHEUMATIC FEVER Medications and Allergies Home Medications Medication Instructions Recorded Confirmed Type Bumetanide [BUMEX] 0.5 mg PO DAILY 12/22/17 08/19/18 History Cholecalciferol [Vitamin D3] 1,000 unit PO DAILY 12/22/17 08/19/18 History Ezetimibe [Zetia] 10 mg PO HS 12/22/17 08/19/18 History Metoprolol Tartrate [Lopressor] 50 mg PO BID 12/22/17 08/19/18 History Ranitidine HCl [Zantac] 150 mg PO BID 12/22/17 08/19/18 History Aspirin 81 mg PO DAILY #30 chewable 12/24/17 08/19/18 Rx Albuterol Inhaler [Ventolin Hfa 2 puff INHALATION RT-Q6H PRN 07/27/18 08/19/18 History Inhaler] Loratadine [Claritin] 10 mg PO DAILY 07/27/18 08/19/18 History Pioglitazone [Actos] 15 mg PO DAILY 07/27/18 08/19/18 History Sevelamer [Renvela] 800 mg PO TID 07/27/18 08/19/18 History Acetaminophen Tab [Tylenol] 650 mg PO Q4HR PRN tab 08/02/18 08/19/18 Rx Albuterol Nebulized [Ventolin 2.5 mg INHALATION RT-TID PRN 08/19/18 08/19/18 History Nebulized] Ascorbic Acid [Vitamin C] 500 mg PO DAILY 08/19/18 08/19/18 History Insulin Detemir [Levemir Flextouch] 55 units SQ DAILY 08/19/18 08/19/18 History Meclizine HCl 25 mg PO DAILY 08/19/18 08/19/18 History [place]-3 Acid Ethyl Esters [Lovaza] 2 gm PO BID 08/19/18 08/19/18 History Oxybutynin Chloride [Oxybutynin 10 mg PO DAILY 08/19/18 08/19/18 History Chloride ER] Vitamin E 1,000 unit PO DAILY 08/19/18 08/19/18 History Allergies Allergy/AdvReac Type Severity Reaction Status Date / Time lisinopril Allergy Itching Verified 08/19/18 15:25 Gxyrdlw-Cfe-Nur Reductase Allergy Itching Verified 08/19/18 15:25 Inhibitor Physical Exam Vitals: Vital Signs Temp Pulse Resp BP Pulse Ox 08/19/18 14:36 98 F 70 22 169/75 91 L Intake and Output 08/19/18 08/19/18 08/19/18 06:59 14:59 22:59 Other: Weight 114.759 kg PHYSICAL EXAMINATION: GENERAL: The patient is alert and oriented x3, not in any acute distress. Morbidly obese HEENT: Pupils are round and equally reacting to light. EOMI. No scleral icterus. No conjunctival pallor. Normocephalic, atraumatic. No pharyngeal erythema. No thyromegaly. CARDIOVASCULAR: S1 and S2 present. No murmurs, rubs, or gallops. Labile to assess JVD PULMONARY: Chest is clear to auscultation, no wheezing or crackles. ABDOMEN: Soft, nontender, nondistended, normoactive bowel sounds. No palpable organomegaly. MUSCULOSKELETAL: No joint swelling or deformity. EXTREMITIES: No cyanosis, clubbing, or pedal edema 1-2+ NEUROLOGICAL: Gross neurological examination did not reveal any focal deficits. SKIN: No rashes. Results CBC & Chem 7: 08/19/18 15:38 08/19/18 15:38 Labs: Abnormal Lab Results - Last 24 Hours (Table) 08/19/18 08/19/18 08/19/18 Range/Units 15:38 15:38 15:38 RBC 3.72 L (3.80-5.40) m/uL RDW 17.4 H (11.5-15.5) % D-Dimer (<0.60) mg/L FEU Potassium 5.4 H (3.5-5.1) mmol/L Chloride 110 H (98-107) mmol/L Carbon Dioxide 21 L (22-30) mmol/L BUN 64 H (7-17) mg/dL Creatinine 3.08 H (0.52-1.04) mg/dL Calcium 10.7 H (8.4-10.2) mg/dL Total Creatine Kinase <20 L (30-135) U/L 08/19/18 Range/Units 15:38 RBC (3.80-5.40) m/uL RDW (11.5-15.5) % D-Dimer 1.50 H (<0.60) mg/L FEU Potassium (3.5-5.1) mmol/L Chloride (98-107) mmol/L Carbon Dioxide (22-30) mmol/L BUN (7-17) mg/dL Creatinine (0.52-1.04) mg/dL Calcium (8.4-10.2) mg/dL Total Creatine Kinase (30-135) U/L Assessment and Plan Plan: shortness of breath probably secondary to congestive heart failure chronic diastolic dysfunction with acute exacerbation patient will be started on 60 IV twice a day of Lasix nephrology will be consulted patient the has chronic kidney disease stage IV. -Right-sided heart failure with acute exacerbation does have cor pulmonale. Diuretic therapy as mentioned above -Moderate obesity patient will benefit from sleep study as an outpatient patient will be evaluated for oxygen requirement at the time of discharge. Atrial fibrillation: Because of the above-mentioned isn't patient is only on aspirin not in anti-coagulation -CVA TIA in the past -Type 2 diabetes mellitus: Patient will be started on sliding scale insulin and hold off oral hypoglycemic agents patient will be resumed on her home regimen. -Hyperlipidemia -Hypertension -Chronic kidney disease stage IV -Severe pulmonary hypertension -Severe mitral regurgitation -Possible sleep apnea and restrictive lung disease -CODE STATUS do not his history discussed with the patient
[2018-08-19] MEDS ORDERED: methylPREDNISolone SOD SUCCI 125 MG/2 ML VIAL IV STA (17:50)
[2018-08-19] MEDS ORDERED: HEPARIN SODIUM,PORCINE 10,000 UNIT/ML 1 ML VIAL IV ONE (17:53)
[2018-08-19] MEDS ORDERED: HEPARIN SODIUM,PORCINE 5,000 UNIT/ML 1 ML VIAL IV PRN (17:53)
[2018-08-19] MEDS ORDERED: HEPARIN SOD,PORK IN 0.45% NACL 25,000 UNIT in 0.45% NACL 1 250ML.BAG IV SCH (18:00)
[2018-08-19] MEDS ORDERED: FUROSEMIDE 10 MG/ML 4 ML VIAL IV SCH (18:00)
--- NOTE | 2018-08-19 18:34 | XR ---
EXAMINATION: XR chest 2V DATE AND TIME: 08/19/2018 5:38 PM CLINICAL INDICATION: PHH; difficulty breathing TECHNIQUE: Departmental protocol COMPARISON: 07/29/2018 FINDINGS: Pacemaker redemonstrated. The lungs show an interstitial and alveolar space process symmetrically, involving the lower and mid lung zones predominantly. Pattern is consistent with interstitial and alveolar phase pulmonary edema with bilateral small pleural effusions evident. No abnormal gas collections. The cardiac silhouette is moderately enlarged, unchanged. The skeletal structures and soft tissues are negative for acute findings. IMPRESSION: Findings consistent with interstitial and alveolar phase cardiogenic pulmonary edema.
[2018-08-19] MEDS: FUROSEMIDE 10 MG/ML 10 ML VIAL IV SCH (18:41)
[2018-08-19] MEDS: IPRATROPIUM-ALBUTEROL 3 ML NEB INHALATION SCH ×2 (19:37→19:51)
[2018-08-19] MEDS ORDERED: NON-FORMULARY DRUG (Ranitidine Hcl [Zantac] 150 MG) PO SCH (21:00)
[2018-08-19] MEDS: METOPROLOL TARTRATE 50 MG TAB PO SCH (21:25)
[2018-08-19] MEDS: SEVELAMER 800 MG TAB PO SCH (21:25)
[2018-08-19] MEDS: FAMOTIDINE 20 MG TAB PO SCH (21:25)
[2018-08-19 21:37] LABS: Glucose,Whole Blood 156 mg/dL (75-99)
[2018-08-19] MEDS: methylPREDNISolone SOD SUCCI 125 MG/2 ML VIAL IV SCH (23:17)
[2018-08-19] MEDS: EZETIMIBE 10 MG TAB PO SCH (23:18)
[2018-08-20] MEDS ORDERED: HEPARIN SODIUM,PORCINE 5,000 UNIT/ML 1 ML VIAL SQ SCH
[2018-08-20] MEDS: FUROSEMIDE 10 MG/ML 10 ML VIAL IV SCH ×2 (06:06→16:35)
[2018-08-20] MEDS: methylPREDNISolone SOD SUCCI 125 MG/2 ML VIAL IV SCH ×4 (06:06→21:13)
[2018-08-20 06:17] LABS: Glucose,Whole Blood 252 mg/dL (75-99)
[2018-08-20] MEDS: INSULIN ASPART 100 UNIT/ML 1 ML 10 ML VIAL SQ SCH ×4 (06:17→21:12)
[2018-08-20] MEDS: HEPARIN SOD,PORK IN 0.45% NACL 25,000 UNIT in 0.45% NACL 1 250ML.BAG IV SCH ×2 (06:41→18:11)
[2018-08-20 07:31] LABS: Calcium 10.1 mg/dL (8.4-10.2); Potassium 5.7 mmol/L (3.5-5.1)
[2018-08-20] MEDS: ASPIRIN 81 MG PO SCH (08:42)
[2018-08-20] MEDS: METOPROLOL TARTRATE 50 MG TAB PO SCH ×2 (08:42→21:11)
[2018-08-20] MEDS: SEVELAMER 800 MG TAB PO SCH ×3 (08:42→21:11)
[2018-08-20] MEDS: FAMOTIDINE 20 MG TAB PO SCH (08:42)
[2018-08-20] MEDS: IPRATROPIUM-ALBUTEROL 3 ML NEB INHALATION SCH ×4 (08:52→21:34)
[2018-08-20] MEDS: INSULIN DETEMIR 100 UNIT/ML 10 ML VIAL SQ SCH (09:43)
[2018-08-20] MEDS: OXYBUTYNIN 10 MG TAB.ER.24 PO SCH (09:43)
--- NOTE | 2018-08-20 12:10 | P.NPCON ---
History of Present Illness - Reason for Consult acute renal failure, chronic renal failure - History of Present Illness Reason for consultation: Acute kidney injury on chronic kidney disease History of present illness: Patient is a 73-year-old female seen in consultation for acute kidney injury on chronic kidney disease. Patient has chronic kidney disease stage IV with baseline creatinine in the range of 2.6-2.8 secondary to diabetic kidney disease. Patient follows with a associate professor of library science out of [place], [place]. Patient presented to the hospital with dyspnea. She does have history of diastolic CHF with severe tricuspid regurgitation and pulmonary hypertension. Chest x-ray was suggestive of vascular congestion. She is currently maintained on Lasix 60 mg IV twice daily. She admits to good urine output. No vomiting or diarrhea. She had a VQ scan completed this morning. Potassium was 5.7 this morning. However her blood sugar was also elevated at 252. Hemodynamically she is stable. Denies chest pain. Vital signs are stable. General: The patient appeared well nourished and normally developed. HEENT: Head exam is unremarkable. Neck is without jugular venous distension. LUNGS: Lungs are clear to auscultation and percussion. Breath sounds decreased. HEART: Rate and Rhythm are regular. First and second heart sounds normal. No murmurs, rubs or gallops. ABDOMEN: Abdominal exam reveals normal bowel sounds. Non-tender and non- distended. No evidence of peritonitis. EXTREMITITES: Trace edema. Past Medical History Past Medical History: Atrial Fibrillation, Asthma, Heart Failure, CVA/TIA, Diabetes Mellitus, Deep Vein Thrombosis (DVT), Eye Disorder, GERD/Reflux, Hyperlipidemia, Hypertension, Osteoarthritis (OA), Renal Disease History of Any Multi-Drug Resistant Organisms: None Reported Past Surgical History: Adenoidectomy, Appendectomy, Cholecystectomy, Pacemaker, Tonsillectomy Past Anesthesia/Blood Transfusion Reactions: No Reported Reaction Type of Cardiac Device: Permanent Pacemaker Device Placement Date:: 2016 Past Psychological History: No Psychological Hx Reported Smoking Status: Never smoker Past Alcohol Use History: None Reported Past Drug Use History: None Reported - Past Family History Father Family Medical History: Myocardial Infarction ([place]) Additional Family Medical History / Comment(s): RHEUMATIC FEVER Medications and Allergies Home Medications Medication Instructions Recorded Confirmed Type Bumetanide [BUMEX] 0.5 mg PO DAILY 12/22/17 08/19/18 History Cholecalciferol [Vitamin D3] 1,000 unit PO DAILY 12/22/17 08/19/18 History Ezetimibe [Zetia] 10 mg PO HS 12/22/17 08/19/18 History Metoprolol Tartrate [Lopressor] 50 mg PO BID 12/22/17 08/19/18 History Ranitidine HCl [Zantac] 150 mg PO BID 12/22/17 08/19/18 History Aspirin 81 mg PO DAILY #30 chewable 12/24/17 08/19/18 Rx Albuterol Inhaler [Ventolin Hfa 2 puff INHALATION RT-Q6H PRN 07/27/18 08/19/18 History Inhaler] Loratadine [Claritin] 10 mg PO DAILY 07/27/18 08/19/18 History Pioglitazone [Actos] 15 mg PO DAILY 07/27/18 08/19/18 History Sevelamer [Renvela] 800 mg PO TID 07/27/18 08/19/18 History Acetaminophen Tab [Tylenol] 650 mg PO Q4HR PRN tab 08/02/18 08/19/18 Rx Albuterol Nebulized [Ventolin 2.5 mg INHALATION RT-TID PRN 08/19/18 08/19/18 History Nebulized] Ascorbic Acid [Vitamin C] 500 mg PO DAILY 08/19/18 08/19/18 History Insulin Detemir [Levemir Flextouch] 55 units SQ DAILY 08/19/18 08/19/18 History Meclizine HCl 25 mg PO DAILY 08/19/18 08/19/18 History [place]-3 Acid Ethyl Esters [Lovaza] 2 gm PO BID 08/19/18 08/19/18 History Oxybutynin Chloride [Oxybutynin 10 mg PO DAILY 08/19/18 08/19/18 History Chloride ER] Vitamin E 1,000 unit PO DAILY 08/19/18 08/19/18 History Allergies Allergy/AdvReac Type Severity Reaction Status Date / Time lisinopril Allergy Itching Verified 08/19/18 15:25 Rahkxaz-Edh-Mdb Reductase Allergy Itching Verified 08/19/18 15:25 Inhibitor Physical Exam Vitals: Vital Signs Temp Pulse Pulse Resp BP BP Pulse Ox 08/20/18 09:10 76 08/20/18 08:53 80 01/23/19 04:00 97.2 F L 70 22 153/97 92 L 08/20/18 00:00 97.0 F L 71 18 145/70 94 L 08/19/18 20:09 72 16 08/19/18 20:00 97.7 F 70 18 152/75 96 08/19/18 19:54 97.3 F L 70 18 163/89 96 08/19/18 19:52 70 16 08/19/18 18:33 70 18 170/86 97 08/19/18 18:09 70 18 08/19/18 17:54 69 08/19/18 17:39 71 18 08/19/18 17:00 18 145/117 98 08/19/18 16:30 18 177/93 95 08/19/18 16:00 18 173/101 94 L 08/19/18 15:30 170/98 08/19/18 15:00 18 176/98 93 L 08/19/18 14:58 94 L 08/19/18 14:36 98 F 70 22 169/75 91 L Intake and Output 08/19/18 08/20/18 08/20/18 22:59 06:59 14:59 Output Total 700 Balance -700 Output: Urine 700 Other: Voiding Method Bedside Commode Bedside Commode # Voids 1 1 Weight 117.5 kg Results - Lab Results Most recent lab results Calcium 10.1 mg/dL (8.4-10.2) 08/20/18 05:22 Magnesium 2.3 mg/dL (1.6-2.3) 08/19/18 15:38 08/19/18 15:38 08/20/18 05:22 Assessment and Plan Plan: Assessment: 1. Acute kidney injury mostly prerenal secondary to diuresis. Creatinine 3.36 today. 2. Chronic kidney disease stage IV secondary to diabetic kidney disease with baseline creatinine in the range of 2.6 at 2.8. 3. Acute hypoxic respiratory failure secondary to volume overload. VQ scan pending. 4. Hyperkalemia secondary to acute kidney injury and hyperglycemia. 5. Insulin-dependent diabetes mellitus. 6. Diastolic CHF with severe tricuspid regurgitation and pulmonary hypertension. 7. Volume overload. Plan: Maintain Lasix 60 mg IV twice daily for the next 24 hours. Follow-up VQ scan. Repeat potassium level this evening. Tight blood sugar control. Low potassium diet. Avoid nephrotoxins. Repeat electrolytes in the morning. Thank you for the consultation. I will continue to follow the patient with you during her hospital stay.
--- NOTE | 2018-08-20 13:02 | NM ---
EXAMINATION TYPE: NM pul vent and perfuse DATE OF EXAM: 08/20/2018 COMPARISON: NONE HISTORY: Shortness of breath TECHNIQUE: Utilizing inhalation of 65.4 mCi Tc 99m DTPA aerosol and intravenous injection of 4.8 mCi of Tc 99m MAA, ventilation and perfusion images are acquired post injection in multiple projections. FINDINGS: Normal radiotracer distribution is noted in the lungs. There is no evidence of mismatched defects. IMPRESSION: No scintigraphic evidence to suggest pulmonary embolism at this time.
[2018-08-20 13:07] LABS: Glucose,Whole Blood 342 mg/dL (75-99)
[2018-08-20 13:44] VITALS: BMI 45.8
--- NOTE | 2018-08-20 15:07 | P.PN ---
Subjective 73-year-old female admitted for heart failure exacerbation mostly chronic diastolic dysfunction vision along with carb pulmonary severe pulmonary hypertension patient's creatinine went up from 3.08 t0 3.36 patient is on diuretic therapy which will be continued and nephrology evaluated the patient. Patient will remain on IV Lasix for 1 more day possibly of discharge tomorrow we will do home O2 evaluation before discharge and patient is feeling much better respiratory waterman she did improve. Constitutional: Denied any fatigue denied any fever. Cardio vascular: denied any chest pain, palpitations Gastrointestinal denied any nausea vomiting Pulmonary: Denied any shortness of breath cough Neurologic denied any new focal deficits All inpatient medications were reviewed and appropriate changes in these medications as dictated in the interval history and assessment and plan. Objective - Vital Signs Vital signs: Vital Signs Temp 97.5 F L 08/20/18 08:00 Pulse 76 08/20/18 12:43 Resp 18 08/20/18 12:00 BP 134/73 08/20/18 12:00 Pulse Ox 98 08/20/18 12:00 Intake & Output 08/19/18 08/20/18 08/20/18 18:59 06:59 18:59 Intake Total 240 Output Total 700 Balance -700 240 Weight 114.759 kg 117.5 kg 117.5 kg Intake: Oral 240 Output: Urine 700 Other: Voiding Method Bedside Commode Bedside Commode # Voids 1 - Exam PHYSICAL EXAMINATION: GENERAL: The patient is alert and oriented x3, not in any acute distress. Morbidly obese HEENT: Pupils are round and equally reacting to light. EOMI. No scleral icterus. No conjunctival pallor. Normocephalic, atraumatic. No pharyngeal erythema. No thyromegaly. CARDIOVASCULAR: S1 and S2 present. No murmurs, rubs, or gallops. Labile to assess JVD PULMONARY: Good air entry into bilateral lung gaytan crackles resolved later to auscultation ABDOMEN: Soft, nontender, nondistended, normoactive bowel sounds. No palpable organomegaly. MUSCULOSKELETAL: No joint swelling or deformity. EXTREMITIES: No cyanosis, clubbing, pedal edema resolved NEUROLOGICAL: Gross neurological examination did not reveal any focal deficits. SKIN: No rashes. - Labs CBC & Chem 7: 08/19/18 15:38 08/20/18 05:22 Labs: Abnormal Lab Results - Last 24 Hours (Table) 08/19/18 08/19/18 08/19/18 Range/Units 15:38 15:38 15:38 RBC 3.72 L (3.80-5.40) m/uL RDW 17.4 H (11.5-15.5) % APTT (22.0-30.0) sec D-Dimer (<0.60) mg/L FEU Potassium 5.4 H (3.5-5.1) mmol/L Chloride 110 H (98-107) mmol/L Carbon Dioxide 21 L (22-30) mmol/L BUN 64 H (7-17) mg/dL Creatinine 3.08 H (0.52-1.04) mg/dL Glucose (74-99) mg/dL POC Glucose (mg/dL) (75-99) mg/dL Calcium 10.7 H (8.4-10.2) mg/dL Total Creatine Kinase <20 L (30-135) U/L 08/19/18 08/19/18 08/19/18 Range/Units 15:38 21:36 23:12 RBC (3.80-5.40) m/uL RDW (11.5-15.5) % APTT 71.1 H (22.0-30.0) sec D-Dimer 1.50 H (<0.60) mg/L FEU Potassium (3.5-5.1) mmol/L Chloride (98-107) mmol/L Carbon Dioxide (22-30) mmol/L BUN (7-17) mg/dL Creatinine (0.52-1.04) mg/dL Glucose (74-99) mg/dL POC Glucose (mg/dL) 156 H (75-99) mg/dL Calcium (8.4-10.2) mg/dL Total Creatine Kinase (30-135) U/L 08/20/18 08/20/18 08/20/18 Range/Units 05:22 05:22 06:16 RBC (3.80-5.40) m/uL RDW (11.5-15.5) % APTT >200.0 H* (22.0-30.0) sec D-Dimer (<0.60) mg/L FEU Potassium 5.7 H (3.5-5.1) mmol/L Chloride (98-107) mmol/L Carbon Dioxide (22-30) mmol/L BUN 67 H (7-17) mg/dL Creatinine 3.36 H (0.52-1.04) mg/dL Glucose 246 H (74-99) mg/dL POC Glucose (mg/dL) 252 H (75-99) mg/dL Calcium (8.4-10.2) mg/dL Total Creatine Kinase (30-135) U/L 08/20/18 08/20/18 Range/Units 12:57 13:32 RBC (3.80-5.40) m/uL RDW (11.5-15.5) % APTT 40.3 H (22.0-30.0) sec D-Dimer (<0.60) mg/L FEU Potassium (3.5-5.1) mmol/L Chloride (98-107) mmol/L Carbon Dioxide (22-30) mmol/L BUN (7-17) mg/dL Creatinine (0.52-1.04) mg/dL Glucose (74-99) mg/dL POC Glucose (mg/dL) 342 H (75-99) mg/dL Calcium (8.4-10.2) mg/dL Total Creatine Kinase (30-135) U/L Assessment and Plan Plan: shortness of breath probably secondary to congestive heart failure chronic diastolic dysfunction with acute exacerbation patient is on 60 IV twice a day of Lasix, nephrology evaluated the patient patient does have chronic kidney disease stage IV -Right-sided heart failure with acute exacerbation does have cor pulmonale. Diuretic therapy as mentioned above -Moderate obesity patient will benefit from sleep study as an outpatient patient will be evaluated for oxygen requirement at the time of discharge. Atrial fibrillation: Because because of fall risk patient is not in any other anti-correlation patient has chronic A. fib presently sinus rhythm. Patient is being continued on aspirin at this time. -CVA TIA in the past -Type 2 diabetes mellitus: Patient will be started on sliding scale insulin and hold off oral hypoglycemic agents patient will be resumed on her home regimen. blood sugars are still bit elevated will continue to monitor before increase her insulin. -Hyperlipidemia -Hypertension -Chronic kidney disease stage IV -Severe pulmonary hypertension -Severe mitral regurgitation -Possible sleep apnea and restrictive lung disease -CODE STATUS do not his history discussed with the patient
[2018-08-20 16:29] LABS: Glucose,Whole Blood 289 mg/dL (75-99)
[2018-08-20 21:12] LABS: Glucose,Whole Blood 191 mg/dL (75-99)
[2018-08-20] MEDS ORDERED: INSULIN REGULAR 100 UNIT/ML VIAL IV ONE (21:48)
[2018-08-20] MEDS ORDERED: DEXTROSE 50%-WATER 50 ML SYRINGE IVP STA (21:48)
[2018-08-20] MEDS: EZETIMIBE 10 MG TAB PO SCH (22:14)
[2018-08-21 05:54] LABS: Glucose,Whole Blood 212 mg/dL (75-99)
[2018-08-21] MEDS: FUROSEMIDE 10 MG/ML 10 ML VIAL IV SCH (06:24)
[2018-08-21] MEDS: INSULIN ASPART 100 UNIT/ML 1 ML 10 ML VIAL SQ SCH ×4 (06:24→21:17)
[2018-08-21] MEDS: methylPREDNISolone SOD SUCCI 125 MG/2 ML VIAL IV SCH (06:24)
[2018-08-21 07:44] LABS: Calcium 10.2 mg/dL (8.4-10.2); Magnesium 2.1 mg/dL (1.6-2.3); Phosphorus 4.6 mg/dL (2.5-4.5); Potassium 5.9 mmol/L (3.5-5.1)
[2018-08-21] MEDS: IPRATROPIUM-ALBUTEROL 3 ML NEB INHALATION SCH ×4 (08:36→20:43)
[2018-08-21] MEDS ORDERED: SODIUM POLYSTYRENE SULFONATE 15 GM/60 ML BOTTLE PO STA (09:12)
[2018-08-21] MEDS: SEVELAMER 800 MG TAB PO SCH ×3 (09:31→21:50)
[2018-08-21] MEDS: ASPIRIN 81 MG PO SCH (09:31)
[2018-08-21] MEDS: METOPROLOL TARTRATE 50 MG TAB PO SCH ×2 (09:31→21:52)
[2018-08-21] MEDS: FAMOTIDINE 20 MG TAB PO SCH (09:32)
[2018-08-21] MEDS: INSULIN DETEMIR 100 UNIT/ML 10 ML VIAL SQ SCH (09:32)
[2018-08-21] MEDS: OXYBUTYNIN 10 MG TAB.ER.24 PO SCH (09:33)
--- NOTE | 2018-08-21 09:49 | XR ---
EXAMINATION TYPE: XR chest 1V DATE OF EXAM: 08/21/2018 COMPARISON: 08/19/2018 INDICATION: CHF, cough TECHNIQUE: Single frontal view of the chest is obtained. FINDINGS: The heart size is enlarged. The pulmonary vasculature is normal. There is poor visualization left diaphragm. Some mild left lower lobe infiltrate may be present. Pace maker overlies right chest. IMPRESSION: 1. Cardiomegaly with a left lower lobe infiltrate. Correlate for mild congestive heart failure.
[2018-08-21 11:25] LABS: Glucose,Whole Blood 257 mg/dL (75-99)
--- NOTE | 2018-08-21 12:21 | P.PN ---
Subjective 73-year-old female admitted for heart failure exacerbation mostly chronic diastolic dysfunction vision along with carb pulmonary severe pulmonary hypertension patient's creatinine went up from 3.08 t0 3.36 patient is on diuretic therapy which will be continued and nephrology evaluated the patient. Patient will remain on IV Lasix for 1 more day possibly of discharge tomorrow we will do home O2 evaluation before discharge and patient is feeling much better respiratory waterman she did improve. 08/21/2018 Patient is clinically doing well looks much better her respiratory status improved as well but the patient is hyperkalemic will give her Kayexalate. We' ll continue with IV Lasix for today possibly of discharge tomorrow patient still has some pleural effusion on the chest x-ray. Constitutional: Denied any fatigue denied any fever. Cardio vascular: denied any chest pain, palpitations Gastrointestinal denied any nausea vomiting Pulmonary: Denied any shortness of breath cough Neurologic denied any new focal deficits All inpatient medications were reviewed and appropriate changes in these medications as dictated in the interval history and assessment and plan. Objective - Vital Signs Vital signs: Vital Signs Temp 97.8 F 08/21/18 08:00 Pulse 72 08/21/18 12:13 Resp 20 08/21/18 11:05 BP 114/59 08/21/18 11:05 Pulse Ox 97 08/21/18 11:05 Intake & Output 08/20/18 08/21/18 08/21/18 18:59 06:59 18:59 Intake Total 1148.235 480 Output Total 750 Balance 398.235 480 Weight 117.5 kg 116.4 kg Intake: Intake, IV Titration 188.235 Amount Heparin Sod,Pork in 0.45% 188.235 NaCl 25,000 unit In 0.45 % NaCl 1 250ml.bag @ 18 UNITS/KG/HR 21.15 mls/hr IV .[id number] [facility] Rx#: [id number] Oral 960 480 Output: Urine 750 Other: Voiding Method Bedside Commode Bedside Commode Toilet # Voids 1 1 - Exam PHYSICAL EXAMINATION: GENERAL: The patient is alert and oriented x3, not in any acute distress. Morbidly obese HEENT: Pupils are round and equally reacting to light. EOMI. No scleral icterus. No conjunctival pallor. Normocephalic, atraumatic. No pharyngeal erythema. No thyromegaly. CARDIOVASCULAR: S1 and S2 present. No murmurs, rubs, or gallops. Labile to assess JVD PULMONARY: Good air entry into bilateral lung gaytan crackles resolved later to auscultation ABDOMEN: Soft, nontender, nondistended, normoactive bowel sounds. No palpable organomegaly. MUSCULOSKELETAL: No joint swelling or deformity. EXTREMITIES: No cyanosis, clubbing, pedal edema resolved NEUROLOGICAL: Gross neurological examination did not reveal any focal deficits. SKIN: No rashes. - Labs CBC & Chem 7: 08/19/18 15:38 08/21/18 06:09 Labs: Abnormal Lab Results - Last 24 Hours (Table) 08/20/18 08/20/18 08/20/18 Range/Units 12:57 13:32 16:13 APTT 40.3 H (22.0-30.0) sec Potassium (3.5-5.1) mmol/L BUN (7-17) mg/dL Creatinine (0.52-1.04) mg/dL Glucose (74-99) mg/dL POC Glucose (mg/dL) 342 H 289 H (75-99) mg/dL Phosphorus (2.5-4.5) mg/dL 08/20/18 08/20/18 08/20/18 Range/Units 16:32 20:14 21:10 APTT (22.0-30.0) sec Potassium 6.3 H* 5.6 H (3.5-5.1) mmol/L BUN (7-17) mg/dL Creatinine (0.52-1.04) mg/dL Glucose (74-99) mg/dL POC Glucose (mg/dL) 191 H (75-99) mg/dL Phosphorus (2.5-4.5) mg/dL 08/21/18 08/21/18 08/21/18 Range/Units 05:53 06:09 11:24 APTT (22.0-30.0) sec Potassium 5.9 H (3.5-5.1) mmol/L BUN 75 H (7-17) mg/dL Creatinine 3.35 H (0.52-1.04) mg/dL Glucose 196 H (74-99) mg/dL POC Glucose (mg/dL) 212 H 257 H (75-99) mg/dL Phosphorus 4.6 H (2.5-4.5) mg/dL Assessment and Plan Plan: shortness of breath probably secondary to congestive heart failure chronic diastolic dysfunction with acute exacerbation patient is on 60 IV twice a day of Lasix, nephrology evaluated the patient patient does have chronic kidney disease stage IV -Hypokalemia secondary to renal failure: Will use capsulate as mentioned above low potassium diet -Right-sided heart failure with acute exacerbation does have cor pulmonale. Diuretic therapy as mentioned above -Moderate obesity patient will benefit from sleep study as an outpatient patient will be evaluated for oxygen requirement at the time of discharge. Atrial fibrillation: Because because of fall risk patient is not in any other anti-correlation patient has chronic A. fib presently sinus rhythm. Patient is being continued on aspirin at this time. -CVA TIA in the past -Type 2 diabetes mellitus: Patient will be started on sliding scale insulin and hold off oral hypoglycemic agents patient will be resumed on her home regimen. blood sugars are still bit elevated will continue to monitor before increase her insulin. -Hyperlipidemia -Hypertension -Chronic kidney disease stage IV -Severe pulmonary hypertension -Severe mitral regurgitation -Possible sleep apnea and restrictive lung disease -CODE STATUS do not his history discussed with the patient
[2018-08-21] MEDS ORDERED: INSULIN REGULAR 100 UNIT/ML VIAL IV ONE ×2 (12:34→19:08)
[2018-08-21] MEDS ORDERED: DEXTROSE 50%-WATER 50 ML SYRINGE IVP STA ×2 (12:34→19:09)
--- NOTE | 2018-08-21 12:35 | P.PN ---
Subjective Patient is seen in follow-up for acute kidney injury on chronic kidney disease. Patient has chronic kidney disease stage IV with baseline creatinine in the range of 2.6-2.8 secondary to diabetic kidney disease. Patient follows with a reliability manager out of [place], [place]. Patient presented to the hospital with dyspnea. She has history of diastolic CHF with severe tricuspid regurgitation and pulmonary hypertension. Currently maintained on Lasix 60 mg IV twice daily. Renal function is stable. Admits to good urine output. Dyspnea improved. Potassium 5.9 this morning. Vital signs are stable. General: The patient appeared well nourished and normally developed. HEENT: Head exam is unremarkable. Neck is without jugular venous distension. LUNGS: Lungs are clear to auscultation and percussion. Breath sounds decreased. HEART: Rate and Rhythm are regular. First and second heart sounds normal. No murmurs, rubs or gallops. ABDOMEN: Abdominal exam reveals normal bowel sounds. Non-tender and non- distended. No evidence of peritonitis. EXTREMITITES: Trace edema. Objective - Vital Signs Vital signs: Vital Signs Temp 97.8 F 08/21/18 08:00 Pulse 72 08/21/18 12:13 Resp 20 08/21/18 11:05 BP 114/59 08/21/18 11:05 Pulse Ox 97 08/21/18 11:05 Intake & Output 08/20/18 08/21/18 08/21/18 18:59 06:59 18:59 Intake Total 1148.235 480 Output Total 750 Balance 398.235 480 Weight 117.5 kg 116.4 kg Intake: Intake, IV Titration 188.235 Amount Heparin Sod,Pork in 0.45% 188.235 NaCl 25,000 unit In 0.45 % NaCl 1 250ml.bag @ 18 UNITS/KG/HR 21.15 mls/hr IV .[id number] [facility] Rx#: [id number] Oral 960 480 Output: Urine 750 Other: Voiding Method Bedside Commode Bedside Commode Toilet # Voids 1 1 - Labs CBC & Chem 7: 08/19/18 15:38 08/21/18 06:09 Labs: Abnormal Lab Results - Last 24 Hours (Table) 08/20/18 08/20/18 08/20/18 Range/Units 12:57 13:32 16:13 APTT 40.3 H (22.0-30.0) sec Potassium (3.5-5.1) mmol/L BUN (7-17) mg/dL Creatinine (0.52-1.04) mg/dL Glucose (74-99) mg/dL POC Glucose (mg/dL) 342 H 289 H (75-99) mg/dL Phosphorus (2.5-4.5) mg/dL 08/20/18 08/20/18 08/20/18 Range/Units 16:32 20:14 21:10 APTT (22.0-30.0) sec Potassium 6.3 H* 5.6 H (3.5-5.1) mmol/L BUN (7-17) mg/dL Creatinine (0.52-1.04) mg/dL Glucose (74-99) mg/dL POC Glucose (mg/dL) 191 H (75-99) mg/dL Phosphorus (2.5-4.5) mg/dL 08/21/18 08/21/18 08/21/18 Range/Units 05:53 06:09 11:24 APTT (22.0-30.0) sec Potassium 5.9 H (3.5-5.1) mmol/L BUN 75 H (7-17) mg/dL Creatinine 3.35 H (0.52-1.04) mg/dL Glucose 196 H (74-99) mg/dL POC Glucose (mg/dL) 212 H 257 H (75-99) mg/dL Phosphorus 4.6 H (2.5-4.5) mg/dL Assessment and Plan Plan: Assessment: 1. Acute kidney injury mostly prerenal secondary to diuresis. Renal function stable. 2. Chronic kidney disease stage IV secondary to diabetic kidney disease with baseline creatinine in the range of 2.6 at 2.8. 3. Acute hypoxic respiratory failure secondary to volume overload. VQ scan negative. 4. Hyperkalemia secondary to acute kidney injury and hyperglycemia. 5. Insulin-dependent diabetes mellitus. 6. Diastolic CHF with severe tricuspid regurgitation and pulmonary hypertension. 7. Volume overload. Better. 8. Chronic kidney disease mineral bone disease maintained on Renvela. Plan: I will change Lasix to 40 mg orally twice daily. 10 units of IV insulin with an amp of D50 now. She also received a dose of Kayexalate this morning. Repeat potassium level this evening. Tight blood sugar control. Low potassium diet. Avoid nephrotoxins. Repeat electrolytes in the morning.
[2018-08-21] MEDS: FUROSEMIDE 40 MG TAB PO SCH (16:19)
[2018-08-21 16:55] LABS: Glucose,Whole Blood 375 mg/dL (75-99)
[2018-08-21 19:41] LABS: Glucose,Whole Blood 190 mg/dL (75-99)
[2018-08-21 21:02] LABS: Glucose,Whole Blood 109 mg/dL (75-99)
[2018-08-21] MEDS: EZETIMIBE 10 MG TAB PO SCH (21:52)
[2018-08-21 22:39] VITALS: RESP 18
[2018-08-22 07:05] LABS: Glucose,Whole Blood 67 mg/dL (75-99)
[2018-08-22 07:38] LABS: Glucose,Whole Blood 74 mg/dL (75-99)
[2018-08-22] MEDS: INSULIN ASPART 100 UNIT/ML 1 ML 10 ML VIAL SQ SCH ×2 (08:00→12:31)
[2018-08-22] MEDS: FUROSEMIDE 40 MG TAB PO SCH (08:00)
[2018-08-22] MEDS: METOPROLOL TARTRATE 50 MG TAB PO SCH (08:00)
[2018-08-22] MEDS: ASPIRIN 81 MG PO SCH (08:00)
[2018-08-22] MEDS: FAMOTIDINE 20 MG TAB PO SCH (08:00)
[2018-08-22] MEDS: SEVELAMER 800 MG TAB PO SCH (08:01)
[2018-08-22] MEDS: OXYBUTYNIN 10 MG TAB.ER.24 PO SCH (08:01)
[2018-08-22] MEDS: IPRATROPIUM-ALBUTEROL 3 ML NEB INHALATION SCH ×2 (08:29→12:20)
[2018-08-22 08:55] LABS: Calcium 9.8 mg/dL (8.4-10.2); Magnesium 1.9 mg/dL (1.6-2.3); Potassium 4.7 mmol/L (3.5-5.1)
[2018-08-22 12:09] LABS: Glucose,Whole Blood 113 mg/dL (75-99)
[2018-08-22] MEDS: INSULIN DETEMIR 100 UNIT/ML 10 ML VIAL SQ SCH (12:42)
--- NOTE | 2018-08-22 14:07 | P.PN ---
Subjective Patient is seen in follow-up for acute kidney injury on chronic kidney disease. Patient has chronic kidney disease stage IV with baseline creatinine in the range of 2.6-2.8 secondary to diabetic kidney disease. Patient follows with a material combiner out of [place], [place]. Patient presented to the hospital with dyspnea. She has history of diastolic CHF with severe tricuspid regurgitation and pulmonary hypertension. Currently maintained on Lasix 40 mg orally twice daily. Renal function is a little worse with creatinine at 3.55 today. Admits to good urine output. Dyspnea improved. Potassium level normal today. Vital signs are stable. General: The patient appeared well nourished and normally developed. HEENT: Head exam is unremarkable. Neck is without jugular venous distension. LUNGS: Lungs are clear to auscultation and percussion. Breath sounds decreased. HEART: Rate and Rhythm are regular. First and second heart sounds normal. No murmurs, rubs or gallops. ABDOMEN: Abdominal exam reveals normal bowel sounds. Non-tender and non- distended. No evidence of peritonitis. EXTREMITITES: Trace edema. Objective - Vital Signs Vital signs: Vital Signs Temp 97.1 F L 08/22/18 07:22 Pulse 72 08/22/18 12:33 Resp 18 08/22/18 08:00 BP 147/81 08/22/18 07:22 Pulse Ox 99 08/22/18 07:22 Intake & Output 08/21/18 08/22/18 08/22/18 18:59 06:59 18:59 Intake Total 1920 Balance 1920 Intake: Oral 1920 Other: Voiding Method Bedside Commode # Voids 2 - Labs CBC & Chem 7: 08/19/18 15:38 08/22/18 08:06 Labs: Abnormal Lab Results - Last 24 Hours (Table) 08/21/18 08/21/18 08/21/18 Range/Units 16:42 18:15 19:39 Potassium 5.5 H (3.5-5.1) mmol/L BUN (7-17) mg/dL Creatinine (0.52-1.04) mg/dL POC Glucose (mg/dL) 375 H 190 H (75-99) mg/dL 08/21/18 08/22/18 08/22/18 Range/Units 21:00 06:59 07:21 Potassium (3.5-5.1) mmol/L BUN (7-17) mg/dL Creatinine (0.52-1.04) mg/dL POC Glucose (mg/dL) 109 H 67 L 74 L (75-99) mg/dL 08/22/18 08/22/18 Range/Units 08:06 11:57 Potassium (3.5-5.1) mmol/L BUN 81 H (7-17) mg/dL Creatinine 3.55 H (0.52-1.04) mg/dL POC Glucose (mg/dL) 113 H (75-99) mg/dL Assessment and Plan Plan: Assessment: 1. Acute kidney injury mostly prerenal secondary to diuresis. Renal function worse today - cr 3.55 today. 2. Chronic kidney disease stage IV secondary to diabetic kidney disease with baseline creatinine in the range of 2.6 at 2.8. 3. Acute hypoxic respiratory failure secondary to volume overload. VQ scan negative. 4. Hyperkalemia secondary to acute kidney injury and hyperglycemia. 5. Insulin-dependent diabetes mellitus. 6. Diastolic CHF with severe tricuspid regurgitation and pulmonary hypertension. 7. Volume overload. Better. 8. Chronic kidney disease mineral bone disease maintained on Renvela. Plan: I will change Lasix to 40 mg AM, 20 mg PM. Repeat BMP, mag in 2-3 days post-discharge. Potential discharge today - follow up outpatient in 1-2 weeks.
[2018-08-22 16:07] VITALS: BP 143/77; PULSE 69; TEMP 97
--- NOTE | 2018-08-23 01:35 | P.DS ---
Providers Date of admission: 08/19/18 17:50 Expected date of discharge: 08/22/18 Attending physician: Garret Ordonez Consults: 08/19/18 17:31 Consult Physician Routine Consulting Provider: Tigre Helton Consult Reason/Comments: CKD, volume overload Do you want consulting provider notified?: Yes Primary care physician: [facility] Hospital Course: Final Diagnoses: -shortness of breath probably secondary to congestive heart failure chronic diastolic dysfunction with acute exacerbation. -chronic kidney disease stage IV -Hyperkalemia secondary to renal failure, resolved -Right-sided heart failure with acute exacerbation does have cor pulmonale. -Moderate obesity patient will benefit from sleep study as an outpataient -CVA TIA in the past -Type 2 diabetes mellitus -Hyperlipidemia -Hypertension -Chronic kidney disease stage IV -Severe pulmonary hypertension -Severe mitral regurgitation -Possible sleep apnea and restrictive lung disease -CODE STATUS do not his history discussed with the patient Hospital course:73-year-old female admitted for heart failure exacerbation mostly chronic diastolic dysfunction vision along with carb pulmonary severe pulmonary hypertension patient's creatinine went up from 3.08 t0 3.36 patient is on diuretic therapy which will be continued and nephrology evaluated the patient. Patient will remain on IV Lasix for 1 more day. Significant clinical improvement. Patient has been cleared by nephrology for discharge. Patient is being discharged home in a stable condition with guarded prognosis. EXAMINATION: GENERAL: The patient is alert and oriented x3, not in any acute distress. Morbidly obese HEENT: Pupils are round and equally reacting to light. EOMI. No scleral icterus. No conjunctival pallor. Normocephalic, atraumatic. No pharyngeal erythema. No thyromegaly. CARDIOVASCULAR: S1 and S2 present. No murmurs, rubs, or gallops. Labile to assess JVD PULMONARY: Good air entry into bilateral lung gaytan crackles resolved later to auscultation ABDOMEN: Soft, nontender, nondistended, normoactive bowel sounds. No palpable organomegaly. MUSCULOSKELETAL: No joint swelling or deformity. EXTREMITIES: No cyanosis, clubbing, pedal edema resolved NEUROLOGICAL: Gross neurological examination did not reveal any focal deficits. SKIN: No rashes. The impression and plan of care has been dictated as directed. : I performed a history and examination of this patient, discussed the same with the dictator. I agree with the dictator's note ,documented as a scribe. Any additional findings or plans will be noted. Intake and: 35 minutes Patient Condition at Discharge: Stable Plan - Discharge Summary New Discharge Prescriptions: New Furosemide [Lasix] 40 mg PO DIRECTED #90 tablet Continue Ezetimibe [Zetia] 10 mg PO HS Ranitidine HCl [Zantac] 150 mg PO BID Cholecalciferol [Vitamin D3] 1,000 unit PO DAILY Metoprolol Tartrate [Lopressor] 50 mg PO BID Aspirin 81 mg PO DAILY #30 chewable Sevelamer [Renvela] 800 mg PO TID Loratadine [Claritin] 10 mg PO DAILY Pioglitazone [Actos] 15 mg PO DAILY Albuterol Inhaler [Ventolin Hfa Inhaler] 2 puff INHALATION RT-Q6H PRN PRN Reason: Shortness Of Breath Acetaminophen Tab [Tylenol] 650 mg PO Q4HR PRN tab PRN Reason: Fever And/ Or Pain Oxybutynin Chloride [Oxybutynin Chloride ER] 10 mg PO DAILY [place]-3 Acid Ethyl Esters [Lovaza] 2 gm PO BID Albuterol Nebulized [Ventolin Nebulized] 2.5 mg INHALATION RT-TID PRN PRN Reason: Shortness Of Breath Vitamin E 1,000 unit PO DAILY Insulin Detemir [Levemir Flextouch] 55 units SQ DAILY Ascorbic Acid [Vitamin C] 500 mg PO DAILY Meclizine HCl 25 mg PO DAILY Discharge Medication List Cholecalciferol [Vitamin D3] 1,000 unit PO DAILY 12/22/17 [History] Ezetimibe [Zetia] 10 mg PO HS 12/22/17 [History] Metoprolol Tartrate [Lopressor] 50 mg PO BID 12/22/17 [History] Ranitidine HCl [Zantac] 150 mg PO BID 12/22/17 [History] Aspirin 81 mg PO DAILY #30 chewable 12/24/17 [Rx] Albuterol Inhaler [Ventolin Hfa Inhaler] 2 puff INHALATION RT-Q6H PRN 07/27/18 [ History] Loratadine [Claritin] 10 mg PO DAILY 07/27/18 [History] Pioglitazone [Actos] 15 mg PO DAILY 07/27/18 [History] Sevelamer [Renvela] 800 mg PO TID 07/27/18 [History] Acetaminophen Tab [Tylenol] 650 mg PO Q4HR PRN tab 08/02/18 [Rx] Albuterol Nebulized [Ventolin Nebulized] 2.5 mg INHALATION RT-TID PRN 08/19/18 [ History] Ascorbic Acid [Vitamin C] 500 mg PO DAILY 08/19/18 [History] Insulin Detemir [Levemir Flextouch] 55 units SQ DAILY 08/19/18 [History] Meclizine HCl 25 mg PO DAILY 08/19/18 [History] [place]-3 Acid Ethyl Esters [Lovaza] 2 gm PO BID 08/19/18 [History] Oxybutynin Chloride [Oxybutynin Chloride ER] 10 mg PO DAILY 08/19/18 [History] Vitamin E 1,000 unit PO DAILY 08/19/18 [History] Furosemide [Lasix] 40 mg PO DIRECTED #90 tablet 08/22/18 [Rx] Follow up Appointment(s)/Referral(s): [facility] [NON-STAFF] - [facility], [NON-STAFF] - Marc Avitia MD [Primary Care Provider] - 08/28/18 11:00 am Nonstaff,Physician [REFERRING] - 09/22/18 10:00 am (Dr. Delgado director distribution in [place] office.) Rodney Alvarado MD [STAFF PHYSICIAN] - 09/15/18 4:15 pm (In [place] office.) Ambulatory/Diagnostic Orders: Basic Metabolic Panel [LAB.AMB] Time Frame: 3 Days, Location: None Selected Patient Instructions/Handouts: Heart Failure (DC), Potassium Content of Foods List (DC), Hyperkalemia (DC), Diabetic Hyperglycemia (DC) Activity/Diet/Wound Care/Special Instructions: Please recheck potassium with blood work within 3 days of discharge from hospital. Home O2 through [facility]- Diet: Consistent carb Accu-Cheks before meals and at bedtime, maintain log and take to follow-up visit with PCP for further recommendations Discharge Disposition: HOME WITH HOME HEALTH SERVICES
== END 2018-08-22 15:59 | disposition home health service (06) | DRG 291 ==
LOC: EC 14:31 → 3SCARD 17:50 → 4MS4W 08-21 15:42
PROVIDERS: ADMIT Hospitalist; ATTEND Hospitalist
DX: I13.0 Hypertensive heart and chronic kidney disease with heart failure and stage 1 through stage 4 chronic kidney disease, or unspecified chronic kidney disease (principal); I50.33 Acute on chronic diastolic (congestive) heart failure; J96.01 Acute respiratory failure with hypoxia; Z68.41 Body mass index [BMI] 40.0-44.9, adult; J44.1 Chronic obstructive pulmonary disease with (acute) exacerbation; N17.9 Acute kidney failure, unspecified; N18.4 Chronic kidney disease, stage 4 (severe); E11.22 Type 2 diabetes mellitus with diabetic chronic kidney disease; E11.65 Type 2 diabetes mellitus with hyperglycemia; E78.5 Hyperlipidemia, unspecified; E87.5 Hyperkalemia; I08.1 Rheumatic disorders of both mitral and tricuspid valves; I27.29 Other secondary pulmonary hypertension; I27.81 Cor pulmonale (chronic); I48.91 Unspecified atrial fibrillation; I49.3 Ventricular premature depolarization; K21.9 Gastro-esophageal reflux disease without esophagitis; R79.1 Abnormal coagulation profile; T50.2X5A Adverse effect of carbonic-anhydrase inhibitors, benzothiadiazides and other diuretics, initial encounter; Z79.4 Long term (current) use of insulin; Z79.82 Long term (current) use of aspirin; Z79.899 Other long term (current) drug therapy; Z82.49 Family history of ischemic heart disease and other diseases of the circulatory system; Z86.73 Personal history of transient ischemic attack (TIA), and cerebral infarction without residual deficits; Z95.0 Presence of cardiac pacemaker; Z90.49 Acquired absence of other specified parts of digestive tract; E66.01 Morbid (severe) obesity due to excess calories
CPT/HCPCS: 36415; 71045; 71046; 78582; 80048; 80053; 82550; 82553; 83036; 83735; 83880; 84100; 84132; 84484; 85025; 85379; 85610; 85730; 93005; 94640; 94644; 94760; 96365; 96375; 96376; 99291

== ENCOUNTER 2019-02-10 15:39 | Inpatient (IN) | payer MEDICARE, OTHER ==
[2019-02-10] MEDS ORDERED: ASPIRIN 81 MG PO STA (16:10)
--- NOTE | 2019-02-10 16:13 | ED ---
General Adult HPI - General Chief complaint: Arrhythmia/Palpitations Stated complaint: Cardiac Issues Time Seen by Provider: 02/10/19 15:58 Source: patient, EMS Mode of arrival: EMS Limitations: no limitations - History of Present Illness Initial comments: Patient is a 73-year-old female with a history of atrial fibrillation, congestive heart failure, diabetes, DVT currently not on anticoagulation, renal disease, hypertension, hyperlipidemia presents with a chief complaint of heart palpitations. She was evaluated by her primary care doctor's PA who was instructed to send her into the emergency department by her doctor. The patient states that she has been having palpitations. She was sent in for concerns of congestive heart failure. Patient denies any chest pain, denies any worsening of her shortness of breath though she wears oxygen 24 7. She cannot identify an inciting incident. There are no aggravating or alleviating factors. Timing is constant. - Related Data Home Medications Medication Instructions Recorded Confirmed Cholecalciferol [Vitamin D3 (25 1,000 unit PO DAILY 12/22/17 02/10/19 Mcg = 1000 Iu)] Ezetimibe [Zetia] 10 mg PO HS 12/22/17 02/10/19 Metoprolol Tartrate [Lopressor] 50 mg PO BID 12/22/17 02/10/19 Ranitidine HCl [Zantac] 150 mg PO BID 12/22/17 02/10/19 Albuterol Inhaler [Ventolin Hfa 2 puff INHALATION RT-Q6H PRN 07/27/18 02/10/19 Inhaler] Pioglitazone [Actos] 15 mg PO DAILY 07/27/18 02/10/19 Sevelamer [Renvela] 800 mg PO TID 07/27/18 02/10/19 Albuterol Nebulized [Ventolin 2.5 mg INHALATION RT-TID PRN 08/19/18 02/10/19 Nebulized] Ascorbic Acid [Vitamin C] 500 mg PO DAILY@1200 08/19/18 02/10/19 Insulin Detemir [Levemir Flextouch] 55 units SQ DAILY 08/19/18 02/10/19 Meclizine HCl 25 mg PO DAILY 08/19/18 02/10/19 Acetaminophen Tab [Tylenol Tab] 250 mg PO QAM 02/10/19 02/10/19 Acetaminophen [Tylenol] 500 mg PO HS 02/10/19 02/10/19 Aspirin 81 mg PO BID 02/10/19 02/10/19 Bumetanide 0.5 mg PO DAILY 02/10/19 02/10/19 Cinnamon Bark [Cinnamon] 1,000 mg PO BID 02/10/19 02/10/19 Exenatide Microspheres [Bydureon 2 mg SQ Q7D 02/10/19 02/10/19 Pen] Furosemide [Lasix] 20 mg PO HS 02/10/19 02/10/19 Furosemide [Lasix] 40 mg PO QAM 02/10/19 02/10/19 Meclizine [Antivert] 12.5 mg PO DAILY PRN 02/10/19 02/10/19 Multivitamins, Thera [Multivitamin 1 tab PO HS 02/10/19 02/10/19 (formulary)] [place]-3/Dha/Epa/Fish Oil [Fish Oil 1 cap PO DAILY@1200 02/10/19 02/10/19 500 mg Softgel] Vitamin E (Dl,Tocopheryl Acet) 400 unit PO DAILY@1200 02/10/19 02/10/19 [Vitamin E] diphenhydrAMINE HCL [Benadryl] 25 - 50 mg PO QID PRN 02/10/19 02/10/19 Allergies Allergy/AdvReac Type Severity Reaction Status Date / Time lisinopril Allergy Itching Verified 02/10/19 17:41 [id number] Reductase Allergy Itching Verified 02/10/19 17:41 Inhibitor Review of Systems ROS Statement: Those systems with pertinent positive or pertinent negative responses have been documented in the HPI. ROS Other: All systems not noted in ROS Statement are negative. Cardiovascular: Reports: palpitations Past Medical History Past Medical History: Atrial Fibrillation, Asthma, Heart Failure, CVA/TIA, Diabetes Mellitus, Deep Vein Thrombosis (DVT), Eye Disorder, GERD/Reflux, Hyperlipidemia, Hypertension, Osteoarthritis (OA), Renal Disease History of Any Multi-Drug Resistant Organisms: None Reported Past Surgical History: Adenoidectomy, Appendectomy, Cholecystectomy, Pacemaker, Tonsillectomy Past Anesthesia/Blood Transfusion Reactions: No Reported Reaction Type of Cardiac Device: Permanent Pacemaker Device Placement Date:: 2016 Past Psychological History: No Psychological Hx Reported Smoking Status: Never smoker Past Alcohol Use History: None Reported Past Drug Use History: None Reported - Past Family History Father Family Medical History: Myocardial Infarction ([place]) Additional Family Medical History / Comment(s): RHEUMATIC FEVER General Exam Limitations: no limitations General appearance: alert, in no apparent distress Head exam: Present: atraumatic, normocephalic Eye exam: Present: normal appearance ENT exam: Present: normal exam Neck exam: Present: normal inspection Respiratory exam: Present: decreased breath sounds. Absent: respiratory distress, wheezes Cardiovascular Exam: Present: regular rate, normal rhythm, systolic murmur GI/Abdominal exam: Present: soft. Absent: distended, tenderness Rectal exam: Present: deferred Extremities exam: Present: normal inspection Back exam: Present: normal inspection Neurological exam: Present: alert, oriented X3 Psychiatric exam: Present: normal affect, normal mood Skin exam: Present: warm, dry, intact Course Vital Signs 02/10/19 15:42 Temperature 96.9 F L Pulse Rate 70 Respiratory 17 Rate Blood Pressure 139/88 O2 Sat by Pulse 99 Oximetry Medical Decision Making - Medical Decision Making Patient presents with chief complaint of palpitations, 70 emergency department by her primary care physician. On initial evaluation, vitals are stable, patient is no acute distress. Physical exam findings consistent with congestive heart failure. Patient to be evaluated basic labs including cardiac enzymes, chest x-ray, EKG. She was given an aspirin. No suspicion for DVT or PE as suly casillas is on her normal oxygen regimen and saturating 97% without any signs of labored breathing or chest pain. 6:08 PM Laboratory evaluation of this patient shows a hemolyzed basic metabolic panel th alberto will be redrawn. BNP is over 10,000, chest x-ray shows evidence of congestive heart failure. Patient given 40 mg of Lasix. At this time, patient remains stable however she'll be admitted for further evaluation and diuresis. Case discussed with Dr. panda except admission. Cardiology was placed on consult. Patient revealed a care plan. - Lab Data Result diagrams: 02/10/19 16:48 02/10/19 16:48 Lab Results 02/10/19 02/10/19 02/10/19 Range/Units 16:48 16:48 16:48 WBC 6.4 (3.8-10.6) k/uL RBC 4.08 (3.80-5.40) m/uL Hgb 11.5 (11.4-16.0) gm/dL Hct 37.5 (34.0-46.0) % MCV 92.0 (80.0-100.0) fL MCH 28.3 (25.0-35.0) pg MCHC 30.8 L (31.0-37.0) g/dL RDW 17.9 H (11.5-15.5) % Plt Count 214 (150-450) k/uL Neutrophils % (Manual) 70 % Lymphocytes % (Manual) 12 % Monocytes % (Manual) 17 % Eosinophils % (Manual) 1 % Neutrophils # (Manual) 4.48 (1.3-7.7) k/uL Lymphocytes # (Manual) 0.77 L (1.0-4.8) k/uL Monocytes # (Manual) 1.09 H (0-1.0) k/uL Eosinophils # (Manual) 0.06 (0-0.7) k/uL Nucleated RBCs 0 (0-0) /100 WBC Large Platelets Present Polychromasia Present Hypochromasia Marked Poikilocytosis (manual Present Anisocytosis Slight Sodium 139 (137-145) mmol/L Potassium 7.4 H* (3.5-5.1) mmol/L Chloride 108 H (98-107) mmol/L Carbon Dioxide 21 L (22-30) mmol/L Anion Gap 10 mmol/L BUN 85 H (7-17) mg/dL Creatinine 4.05 H (0.52-1.04) mg/dL Est GFR (CKD-EPI)AfAm 12 (>60 ml/min/1.73 sqM) Est GFR (CKD-EPI)NonAf 10 (>60 ml/min/1.73 sqM) Glucose 76 (74-99) mg/dL Calcium 10.2 (8.4-10.2) mg/dL Troponin I (0.000-0.034) ng/mL NT-Pro-B Natriuret Pep 30337 pg/mL 02/10/19 Range/Units 16:48 WBC (3.8-10.6) k/uL RBC (3.80-5.40) m/uL Hgb (11.4-16.0) gm/dL Hct (34.0-46.0) % MCV (80.0-100.0) fL MCH (25.0-35.0) pg MCHC (31.0-37.0) g/dL RDW (11.5-15.5) % Plt Count (150-450) k/uL Neutrophils % (Manual) % Lymphocytes % (Manual) % Monocytes % (Manual) % Eosinophils % (Manual) % Neutrophils # (Manual) (1.3-7.7) k/uL Lymphocytes # (Manual) (1.0-4.8) k/uL Monocytes # (Manual) (0-1.0) k/uL Eosinophils # (Manual) (0-0.7) k/uL Nucleated RBCs (0-0) /100 WBC Large Platelets Polychromasia Hypochromasia Poikilocytosis (manual Anisocytosis Sodium (137-145) mmol/L Potassium (3.5-5.1) mmol/L Chloride (98-107) mmol/L Carbon Dioxide (22-30) mmol/L Anion Gap mmol/L BUN (7-17) mg/dL Creatinine (0.52-1.04) mg/dL Est GFR (CKD-EPI)AfAm (>60 ml/min/1.73 sqM) Est GFR (CKD-EPI)NonAf (>60 ml/min/1.73 sqM) Glucose (74-99) mg/dL Calcium (8.4-10.2) mg/dL Troponin I 0.020 (0.000-0.034) ng/mL NT-Pro-B Natriuret Pep pg/mL Disposition Clinical Impression: CHF exacerbation, Debility Disposition: ADMITTED IP TO THIS HOSP Condition: Good Referrals: Marc Avitia MD [Primary Care Provider] - 1-2 days Decision to Admit Reason: Admit from EC - Out of Hospital Transfer - Req. Specs Out of Hospital Transfer - Requested Specifics: Telemetry Unit
[2019-02-10 17:04] LABS: Calcium 10.2 mg/dL (8.4-10.2)
[2019-02-10 17:14] LABS: Potassium 7.4 mmol/L (3.5-5.1)
[2019-02-10 17:17] LABS: Anisocytosis Slight; HCT 37.5 % (34.0-46.0); HGB 11.5 gm/dL (11.4-16.0); Hypochromasia Marked; MCH 28.3 pg (25.0-35.0); MCHC 30.8 g/dL (31.0-37.0); Mean Platelet Volume 8.4; Platelet Count 214 k/uL (150-450); RBC 4.08 m/uL (3.80-5.40); RDW 17.9 % (11.5-15.5); WBC 6.4 k/uL (3.8-10.6)
[2019-02-10 17:44] LABS: Eosinophils # (M) 0.06 k/uL (0-0.7); Lymphocytes # (M) 0.77 k/uL (1.0-4.8); Monocytes # (M) 1.09 k/uL (0-1.0); Neutrophils # (M) 4.48 k/uL (1.3-7.7); Neutrophils % (M) 70 %; Nucleated Red Blood Cells 0 /100 WBC (0-0); Poikilocytosis (M) Present; Polychromasia Present; Total Cells Counted 100
[2019-02-10 17:45] LABS: Large Platelets Present
[2019-02-10] MEDS ORDERED: FUROSEMIDE 10 MG/ML 2 ML VIAL IV ONE (18:07)
[2019-02-10] MEDS ORDERED: FUROSEMIDE 10 MG/ML 2 ML VIAL IV STA (18:07)
--- NOTE | 2019-02-10 18:09 | XR ---
EXAMINATION: XR chest 2V DATE AND TIME: 02/10/2019 5:56 PM CLINICAL INDICATION: PHH; Pain TECHNIQUE: Departmental protocol COMPARISON: 2419 FINDINGS: Pacemaker and EKG leads noted. The lungs show mild silhouetting of the pulmonary vascular structure by a fine reticular pattern of i ncreased density bilaterally with areas of coalescence. The radiographic pattern is consistent with i nterstitial phase pulmonary edema with areas of alveolar phase pulmonary edema. The cardiac silhouett e is moderately enlarged, unchanged. There are small bilateral pleural effusions seen posteriorly. The pleural spaces are otherwise negati ve. The skeletal structures and soft tissues are negative for acute findings. IMPRESSION: Cardiogenic pulmonary edema pattern, with bilateral posterior pleural effusions.
[2019-02-10] MEDS ORDERED: NALOXONE 0.4 MG/ML 1 ML VIAL IV PRN (18:26)
[2019-02-10 18:39] LABS: Appearance,Urine Slightly Cloudy (Clear); Color,Urine Yellow
[2019-02-10 18:40] LABS: Bilirubin,Urine Negative (Negative); Blood,Urine Negative (Negative); Glucose,Urine (UA) Negative (Negative); Ketones,Urine Negative (Negative); Protein,Urine 1+ (Negative)
[2019-02-10 18:41] LABS: Leukocyte Esterase,Urine Large (Negative); Nitrite,Urine Negative (Negative); Urobilinogen,Urine <2.0 mg/dL (<2.0)
[2019-02-10 18:52] LABS: WBC,Urine 3 /hpf (0-5)
[2019-02-10 18:53] LABS: Squamous Epithelial Cell,Urine 1 /hpf (0-4)
[2019-02-10 19:16] LABS: Calcium 10.5 mg/dL (8.4-10.2); Potassium 4.7 mmol/L (3.5-5.1)
[2019-02-10] MEDS ORDERED: ALBUTEROL INHALER 60 PUFF/8 GM INHALER INHALATION PRN (21:46)
[2019-02-10] MEDS ORDERED: MECLIZINE 25 MG TAB PO PRN (21:46)
[2019-02-10] MEDS ORDERED: ALBUTEROL NEBULIZED 2.5 MG/3 ML INHALATION PRN (21:46)
[2019-02-10] MEDS ORDERED: diphenhydrAMINE 25 MG CAP PO PRN (21:46)
[2019-02-10 22:00] LABS: Glucose,Whole Blood 106 mg/dL (75-99)
[2019-02-10] MEDS ORDERED: Exenatide Microspheres [Bydureon Pen] 2 MG SQ SCH (22:00)
[2019-02-10] MEDS ORDERED: NON-FORMULARY DRUG (Cinnamon Bark [Cinnamon] 1,000 MG) PO SCH (22:00)
[2019-02-10] MEDS: ACETAMINOPHEN TAB 500 MG TAB PO SCH ×2 (23:07→23:56)
[2019-02-10] MEDS: BUMETANIDE 0.5 MG TABLET PO SCH (23:08)
[2019-02-10] MEDS: MECLIZINE 25 MG TAB PO SCH (23:08)
[2019-02-10] MEDS: CHOLECALCIFEROL 1,000 UNIT TAB PO SCH (23:08)
[2019-02-10] MEDS: FAMOTIDINE 20 MG TAB PO SCH (23:48)
[2019-02-10] MEDS: SEVELAMER 800 MG TAB PO SCH (23:49)
[2019-02-10] MEDS: METOPROLOL TARTRATE 50 MG TAB PO SCH (23:52)
[2019-02-10] MEDS: MULTIVITAMINS, THERA 1 EACH TAB PO SCH (23:59)
[2019-02-10] MEDS: EZETIMIBE 10 MG TAB PO SCH (23:59)
[2019-02-10] MEDS: ASPIRIN 81 MG PO SCH (23:59)
[2019-02-11 06:00] LABS: Anisocytosis Slight; Basophils # (A) 0.1 k/uL (0-0.2); Basophils % (A) 1 %; Eosinophils # (A) 0.2 k/uL (0-0.7); Eosinophils % (A) 4 %; HCT 36.1 % (34.0-46.0); HGB 10.8 gm/dL (11.4-16.0); Hypochromasia Marked; Lymphocytes # (A) 0.7 k/uL (1.0-4.8); Lymphocytes % (A) 12 %; MCH 28.2 pg (25.0-35.0); MCV 93.7 fL (80.0-100.0); Mean Platelet Volume 7.2; Monocytes # (A) 0.8 k/uL (0-1.0); Monocytes % (A) 13 %; Neutrophils # (A) 4.1 k/uL (1.3-7.7); Neutrophils % (A) 67 %; Platelet Count 265 k/uL (150-450); RBC 3.85 m/uL (3.80-5.40); RDW 17.6 % (11.5-15.5)
[2019-02-11 06:10] LABS: Calcium 10.5 mg/dL (8.4-10.2); Potassium 4.5 mmol/L (3.5-5.1)
[2019-02-11 07:04] LABS: Glucose,Whole Blood 76 mg/dL (75-99)
[2019-02-11] MEDS: INSULIN DETEMIR (LEVEMIR) 100 UNIT/ML SYR SQ SCH (07:24)
[2019-02-11] MEDS: INSULIN ASPART (NovoLOG) 100 UNIT/ML VIAL SQ SCH ×7 (07:24→21:09)
[2019-02-11] MEDS: SEVELAMER 800 MG TAB PO SCH ×3 (07:32→21:09)
[2019-02-11] MEDS: VITAMIN E (DL,TOCOPHERYL ACET) 400 UNIT CAP PO SCH (07:32)
[2019-02-11] MEDS: FAMOTIDINE 20 MG TAB PO SCH (07:33)
[2019-02-11] MEDS: BUMETANIDE 0.5 MG TABLET PO SCH (07:33)
[2019-02-11] MEDS: ACETAMINOPHEN TAB 500 MG TAB PO SCH ×2 (07:33→18:08)
[2019-02-11] MEDS: MECLIZINE 25 MG TAB PO SCH (07:33)
[2019-02-11] MEDS: ASCORBIC ACID 500 MG TAB PO SCH (07:33)
[2019-02-11] MEDS: CHOLECALCIFEROL 1,000 UNIT TAB PO SCH (07:33)
[2019-02-11] MEDS: ASPIRIN 81 MG PO SCH ×2 (07:34→21:09)
[2019-02-11] MEDS: METOPROLOL TARTRATE 50 MG TAB PO SCH ×2 (07:34→21:09)
[2019-02-11] MEDS ORDERED: PIOGLITAZONE 15 MG TAB PO SCH (09:00)
[2019-02-11] MEDS ORDERED: FUROSEMIDE 20 MG TAB PO SCH ×2 (09:00→21:00)
[2019-02-11 11:08] LABS: Glucose,Whole Blood 151 mg/dL (75-99)
[2019-02-11 11:10] VITALS: BMI 44.2
[2019-02-11] MEDS ORDERED: FUROSEMIDE 10 MG/ML 4 ML VIAL IV STA (11:40)
[2019-02-11] MEDS ORDERED: NON-FORMULARY DRUG (Omega-3/Dha/Epa/Fish Oil [Fish Oil 500 Mg Softgel] 1 CAP) PO SCH (12:00)
--- NOTE | 2019-02-11 14:34 | P.NPCON ---
History of Present Illness - Reason for Consult chronic renal failure - History of Present Illness Reason for consultation: Chronic kidney disease History of present illness: Patient is a 73-year-old female seen in renal consultation for chronic kidney disease. Patient has chronic kidney disease stage V secondary to diabetic kidney disease and cardiorenal syndrome. Baseline creatinine near 4. Creatin ine today is 4.2. Patient presented to the hospital with inability to walk as well as edema in her lower extremities. Patient's chest x-ray was also suggestive of fluid overload. Patient's prior echocardiogram revealed severe tricuspid regurgitation and pulmonary hypertension. She has been voiding. No hematuria or dysuria. Denies active chest pain. Hemodynamically she is stable. No vomiting or diarrhea. No dizziness or passing out. Patient follows with me outpatient and dialysis has been discussed with her in detail. She is also completed dialysis education. She has been quite hesitant to start hemodialysis and is now agreeable. Vital signs are stable. General: The patient appeared well nourished and normally developed. HEENT: Head exam is unremarkable. Neck is without jugular venous distension. LUNGS: Lungs are clear to auscultation and percussion. Breath sounds decreased. HEART: Rate and Rhythm are regular. First and second heart sounds normal. No murmurs, rubs or gallops. ABDOMEN: Abdominal exam reveals normal bowel sounds. Non-tender and non- distended. No evidence of peritonitis. EXTREMITITES: 2+ edema. Past Medical History Past Medical History: Atrial Fibrillation, Asthma, Heart Failure, CVA/TIA, Diabetes Mellitus, Deep Vein Thrombosis (DVT), Eye Disorder, GERD/Reflux, Hyperlipidemia, Hypertension, Osteoarthritis (OA), Renal Disease History of Any Multi-Drug Resistant Organisms: None Reported Past Surgical History: Adenoidectomy, Appendectomy, Cholecystectomy, Pacemaker, Tonsillectomy Past Anesthesia/Blood Transfusion Reactions: No Reported Reaction Type of Cardiac Device: Permanent Pacemaker Device Placement Date:: 2016 Past Psychological History: No Psychological Hx Reported Smoking Status: Never smoker Past Alcohol Use History: None Reported Past Drug Use History: None Reported - Past Family History Father Family Medical History: Myocardial Infarction ([place]) Additional Family Medical History / Comment(s): RHEUMATIC FEVER Medications and Allergies Home Medications Medication Instructions Recorded Confirmed Type Cholecalciferol [Vitamin D3 (25 1,000 unit PO DAILY 12/22/17 02/10/19 History Mcg = 1000 Iu)] Ezetimibe [Zetia] 10 mg PO HS 12/22/17 02/10/19 History Metoprolol Tartrate [Lopressor] 50 mg PO BID 12/22/17 02/10/19 History Ranitidine HCl [Zantac] 150 mg PO BID 12/22/17 02/10/19 History Albuterol Inhaler [Ventolin Hfa 2 puff INHALATION RT-Q6H PRN 07/27/18 02/10/19 History Inhaler] Pioglitazone [Actos] 15 mg PO DAILY 07/27/18 02/10/19 History Sevelamer [Renvela] 800 mg PO TID 07/27/18 02/10/19 History Albuterol Nebulized [Ventolin 2.5 mg INHALATION RT-TID PRN 08/19/18 02/10/19 History Nebulized] Ascorbic Acid [Vitamin C] 500 mg PO DAILY@1200 08/19/18 02/10/19 History Insulin Detemir [Levemir Flextouch] 55 units SQ DAILY 08/19/18 02/10/19 History Meclizine HCl 25 mg PO DAILY 08/19/18 02/10/19 History Acetaminophen Tab [Tylenol Tab] 250 mg PO QAM 02/10/19 02/10/19 History Acetaminophen [Tylenol] 500 mg PO HS 02/10/19 02/10/19 History Aspirin 81 mg PO BID 02/10/19 02/10/19 History Bumetanide 0.5 mg PO DAILY 02/10/19 02/10/19 History Cinnamon Bark [Cinnamon] 1,000 mg PO BID 02/10/19 02/10/19 History Exenatide Microspheres [Bydureon 2 mg SQ Q7D 02/10/19 02/10/19 History Pen] Furosemide [Lasix] 20 mg PO HS 02/10/19 02/10/19 History Furosemide [Lasix] 40 mg PO QAM 02/10/19 02/10/19 History Meclizine [Antivert] 12.5 mg PO DAILY PRN 02/10/19 02/10/19 History Multivitamins, Thera [Multivitamin 1 tab PO HS 02/10/19 02/10/19 History (formulary)] [place]-3/Dha/Epa/Fish Oil [Fish Oil 1 cap PO DAILY@1200 02/10/19 02/10/19 History 500 mg Softgel] Vitamin E (Dl,Tocopheryl Acet) 400 unit PO DAILY@1200 02/10/19 02/10/19 History [Vitamin E] diphenhydrAMINE HCL [Benadryl] 25 - 50 mg PO QID PRN 02/10/19 02/10/19 History Allergies Allergy/AdvReac Type Severity Reaction Status Date / Time lisinopril Allergy Itching Verified 02/10/19 17:41 [id number] Reductase Allergy Itching Verified 02/10/19 17:41 Inhibitor Physical Exam Vitals: Vital Signs Temp Pulse Pulse Resp BP BP Pulse Ox 02/11/19 07:00 97.8 F 70 16 137/76 93 L 02/11/19 01:03 97.9 F 71 19 140/68 99 02/10/19 20:15 98.7 F 70 18 130/94 98 02/10/19 19:16 97.6 F 70 23 128/79 93 L 02/10/19 19:10 69 17 128/72 95 02/10/19 15:42 96.9 F L 70 17 139/88 99 Intake and Output 02/10/19 02/11/19 02/11/19 22:59 06:59 14:59 Intake Total 640 Balance 640 Intake: Oral 640 Other: Voiding Method Bedpan Bedpan Bedpan Diaper Diaper Diaper Incontinent Incontinent Incontinent # Voids 1 2 1 # Bowel Movements 1 Weight 113.398 kg 113.398 kg Results - Lab Results Most recent lab results Calcium 10.5 mg/dL (8.4-10.2) H 02/11/19 05:51 02/11/19 05:51 02/11/19 05:51 Assessment and Plan Plan: Assessment: 1. Chronic kidney disease stage V secondary to diabetic kidney disease and cardiorenal syndrome. 2. Diastolic CHF with severe tricuspid regurgitation and pulmonary hypertension. 3. Diabetes mellitus. 4. Hypertension with chronic kidney disease. Controlled. 5. Volume overload. 6. Chronic kidney disease mineral bone disease maintained on Renvela. Plan: Start IV Lasix 80 mg twice daily. Check phosphorus level. Renal replacement therapy has been discussed with the patient and she is now agreeable to start. Consults vascular surgery for permacath placement. Plan for first treatment of hemodialysis tomorrow. manager area to help facilitate outpatient hemodialysis set up. Follow-up repeat echocardiogram. Thank you for the consultation. I will continue to follow the patient with you during her hospital stay.
--- NOTE | 2019-02-11 14:58 | P.CRDCN ---
History of Present Illness History of present illness: This is a pleasant 73-year-old female past medical history significant for paroxysmal atrial fibrillation not on longterm anti-coagulation secondary to poor renal function and frequent falls causing prolonged bleeding in the past, nonrheumatic mitral valve insufficiency, hypertension, sick sinus syndrome status post permanent pacemaker implantation, diabetes mellitus, dyslipidemia, gastroesophageal reflux disease, chronic kidney disease and morbid obesity. She follows in the office with Dr. Alvarado. We have been asked to see her in consultation secondary to heart failure. At the time of my exam she is quite sleepy and only opens her eyes briefly but falls back to sleep immediately and is not answering any questions. Per the friend and caregiver at the bedside she is quite tired and was up all night. Per nursing staff this has been her baseline all day. Information is obtained from the nurse, medical record and caregiver at the bedside. Caregiver brought patient in for increased lower extremity edema. No significant shortness of breath. No chest pain, dizziness or palpitations verbalized to the caregiver prior to admission. EKG obtained on admission reveals ventricular paced rhythm. Chest x-ray reveals pulmonary edema and bilateral posterior pleural effusions. Laboratory data reviewed, WBC 6.0, hemoglobin 10.8, platelets 265, sodium 142, potassium 4.5, creatinine 4.21 with a GFR of 10, cardiac enzymes negative 3, proBNP 10,600. Current cardiac medications include aspirin 81 mg twice a day, that he has 10 mg daily, Lasix 40 mg in the morning and 20 mg at bedtime, Lopressor 50 mg twice a day. Most recent stress test performed in the office 2016 was a Lexiscan stress test which was negative for reversible cardiac ischemia. Most recent echocardiogram obtained June 2019 reveals preserved LV systolic function with ejection fraction 55-60%, severe tricuspid regurgitation, mild mitral regurgitation and severe pulmonary hypertension with an RVSP of 83 mmHg. Unable to obtain accurate review of systems secondary to patient's increased lethargy Blood pressure 137/76 heart rate 70 afebrile maintaining oxygen saturation on nasal cannula GENERAL: This is a 73-year-old female lethargic at the time of my examination. Morbidly obese. HEENT: Head is atraumatic, normocephalic. Pupils are equal, round. Sclerae anicteric. Conjunctivae are clear. Mucous membranes of the mouth are moist. Neck is supple. There is no jugular venous distention. No carotid bruit is heard. LUNGS: Bibasilar rales, no wheezes or rhonchi. No chest wall tenderness is noted on palpation or with deep breathing. Diminished bilaterally. HEART: Regular rate and rhythm with systolic ejection murmur at the left sternal border, no rubs or gallops. S1 and S2 heard. ABDOMEN: Soft, nontender. Bowel sounds are heard. No organomegaly noted. EXTREMITIES: 2+ bilateral lower extremity pitting edema. No calf tenderness noted. VASCULAR: Radial and dorsalis pedis pulses palpated, no evidence of clubbing. NEUROLOGIC: Patient is lethargic. ASSESSMENT Acute on chronic diastolic heart failure with significant fluid overload secondary to cor pulmonale and chronic kidney disease Chronic kidney disease, nephrology has seen the patient and will start dialysis tomorrow Paroxymal atrial fibrillation not on longterm anticoagulation Mitral valve insufficiency Diabetes mellitus Hypertension Dyslipidemia History of permanent pacemaker implantation PLAN Obtain 2D echocardiogram and doppler study to assess cardiac structure and function. Agree with nephrology recommendation of IV lasix at 80 mg BID. Initiate on eliquis 2.5 mg BID for thromboembolic protection after permacath placement. Document accurate intake and out along with daily weights. Further recommendations to follow based on clinical course. Thank you kindly for this consultation. Nurse Practitioner note has been reviewed, I agree with a documented findings and plan of care. Patient was seen and examined. Past Medical History Past Medical History: Atrial Fibrillation, Asthma, Heart Failure, CVA/TIA, Diabetes Mellitus, Deep Vein Thrombosis (DVT), Eye Disorder, GERD/Reflux, Hyperlipidemia, Hypertension, Osteoarthritis (OA), Renal Disease History of Any Multi-Drug Resistant Organisms: None Reported Past Surgical History: Adenoidectomy, Appendectomy, Cholecystectomy, Pacemaker, Tonsillectomy Past Anesthesia/Blood Transfusion Reactions: No Reported Reaction Type of Cardiac Device: Permanent Pacemaker Device Placement Date:: 2016 Past Psychological History: No Psychological Hx Reported Smoking Status: Never smoker Past Alcohol Use History: None Reported Past Drug Use History: None Reported - Past Family History Father Family Medical History: Myocardial Infarction ([place]) Additional Family Medical History / Comment(s): RHEUMATIC FEVER Medications and Allergies Home Medications Medication Instructions Recorded Confirmed Type Cholecalciferol [Vitamin D3 (25 1,000 unit PO DAILY 12/22/17 02/10/19 History Mcg = 1000 Iu)] Ezetimibe [Zetia] 10 mg PO HS 12/22/17 02/10/19 History Metoprolol Tartrate [Lopressor] 50 mg PO BID 12/22/17 02/10/19 History Ranitidine HCl [Zantac] 150 mg PO BID 12/22/17 02/10/19 History Albuterol Inhaler [Ventolin Hfa 2 puff INHALATION RT-Q6H PRN 07/27/18 02/10/19 History Inhaler] Pioglitazone [Actos] 15 mg PO DAILY 07/27/18 02/10/19 History Sevelamer [Renvela] 800 mg PO TID 07/27/18 02/10/19 History Albuterol Nebulized [Ventolin 2.5 mg INHALATION RT-TID PRN 08/19/18 02/10/19 History Nebulized] Ascorbic Acid [Vitamin C] 500 mg PO DAILY@1200 08/19/18 02/10/19 History Insulin Detemir [Levemir Flextouch] 55 units SQ DAILY 08/19/18 02/10/19 History Meclizine HCl 25 mg PO DAILY 08/19/18 02/10/19 History Acetaminophen Tab [Tylenol Tab] 250 mg PO QAM 02/10/19 02/10/19 History Acetaminophen [Tylenol] 500 mg PO HS 02/10/19 02/10/19 History Aspirin 81 mg PO BID 02/10/19 02/10/19 History Bumetanide 0.5 mg PO DAILY 02/10/19 02/10/19 History Cinnamon Bark [Cinnamon] 1,000 mg PO BID 02/10/19 02/10/19 History Exenatide Microspheres [Bydureon 2 mg SQ Q7D 02/10/19 02/10/19 History Pen] Furosemide [Lasix] 20 mg PO HS 02/10/19 02/10/19 History Furosemide [Lasix] 40 mg PO QAM 02/10/19 02/10/19 History Meclizine [Antivert] 12.5 mg PO DAILY PRN 02/10/19 02/10/19 History Multivitamins, Thera [Multivitamin 1 tab PO HS 02/10/19 02/10/19 History (formulary)] [place]-3/Dha/Epa/Fish Oil [Fish Oil 1 cap PO DAILY@1200 02/10/19 02/10/19 History 500 mg Softgel] Vitamin E (Dl,Tocopheryl Acet) 400 unit PO DAILY@1200 02/10/19 02/10/19 History [Vitamin E] diphenhydrAMINE HCL [Benadryl] 25 - 50 mg PO QID PRN 02/10/19 02/10/19 History Allergies Allergy/AdvReac Type Severity Reaction Status Date / Time lisinopril Allergy Itching Verified 02/10/19 17:41 [id number]-Tmf Reductase Allergy Itching Verified 02/10/19 17:41 Inhibitor Physical Exam Vitals: Vital Signs Temp Pulse Pulse Resp BP BP Pulse Ox 02/11/19 07:00 97.8 F 70 16 137/76 93 L 02/11/19 01:03 97.9 F 71 19 140/68 99 02/10/19 20:15 98.7 F 70 18 130/94 98 02/10/19 19:16 97.6 F 70 23 128/79 93 L 02/10/19 19:10 69 17 128/72 95 02/10/19 15:42 96.9 F L 70 17 139/88 99 Intake and Output 02/10/19 02/11/19 02/11/19 22:59 06:59 14:59 Intake Total 640 Balance 640 Intake: Oral 640 Other: Voiding Method Bedpan Bedpan Bedpan Diaper Diaper Diaper Incontinent Incontinent Incontinent # Voids 1 2 1 # Bowel Movements 1 Weight 113.398 kg 113.398 kg Results 02/11/19 05:51 02/11/19 05:51 Cardiac Enzymes 02/10/19 02/11/19 02/11/19 Range/Units 16:48 00:30 05:51 Troponin I 0.020 0.017 0.025 (0.000-0.034) ng/mL CBC 02/10/19 02/11/19 Range/Units 16:48 05:51 WBC 6.4 6.0 (3.8-10.6) k/uL RBC 4.08 3.85 (3.80-5.40) m/uL Hgb 11.5 10.8 L (11.4-16.0) gm/dL Hct 37.5 36.1 (34.0-46.0) % Plt Count 214 265 (150-450) k/uL Comprehensive Metabolic Panel 02/10/19 02/10/19 02/11/19 Range/Units 16:48 18:50 05:51 Sodium 139 142 142 (137-145) mmol/L Potassium 7.4 H* 4.7 4.5 (3.5-5.1) mmol/L Chloride 108 H 108 H 109 H (98-107) mmol/L Carbon Dioxide 21 L 22 22 (22-30) mmol/L BUN 85 H 85 H 83 H (7-17) mg/dL Creatinine 4.05 H 4.23 H 4.21 H (0.52-1.04) mg/dL Glucose 76 83 46 L* (74-99) mg/dL Calcium 10.2 10.5 H 10.5 H (8.4-10.2) mg/dL Current Medications Generic Name Dose Route Start Last Admin Trade Name Freq PRN Reason Stop Dose Admin Acetaminophen 500 mg 02/10/19 22:00 02/10/19 23:56 Tylenol Tab PO 500 mg HS GILL Administration Acetaminophen 250 mg 02/10/19 22:00 02/11/19 07:33 Tylenol Tab PO 250 mg QAM GILL Administration Albuterol Sulfate 2.5 mg 02/10/19 21:46 Ventolin Nebulized INHALATION RT-TID PRN Shortness Of Breath Ascorbic Acid 500 mg 02/11/19 12:00 02/11/19 07:33 Vitamin C PO 500 mg DAILY@1200 GILL Administration Aspirin 81 mg 02/10/19 22:00 02/11/19 07:34 Aspirin PO 81 mg BID GILL Administration Bumetanide 0.5 mg 02/10/19 22:00 02/11/19 07:33 Bumetanide PO 0.5 mg DAILY GILL Administration Cholecalciferol 1,000 unit 02/10/19 22:00 02/11/19 07:33 Vitamin D3 (25 Mcg = 1000 Iu) PO 1,000 unit DAILY GILL Administration Diphenhydramine HCl 25 mg 02/10/19 21:46 Benadryl PO QID PRN Allergy Symptoms Ezetimibe 10 mg 02/10/19 22:00 02/10/19 23:59 Zetia PO Not Given HS GILL Famotidine 20 mg 02/10/19 22:00 02/11/19 07:33 Pepcid PO 20 mg BID GILL Administration Furosemide 20 mg 02/11/19 21:00 Lasix PO HS GILL Furosemide 40 mg 02/11/19 09:00 02/11/19 07:34 Lasix PO 40 mg QAM GILL Administration Insulin Aspart 0 unit 02/11/19 07:30 02/11/19 12:26 Novolog SQ 2 unit ACHS [facility] Administration Protocol Insulin Aspart 0 unit 02/11/19 12:30 02/11/19 12:34 Novolog SQ 1 unit ACHS [facility] Administration Protocol Insulin Detemir 55 unit 02/11/19 07:00 02/11/19 07:24 Levemir SQ Not Given DAILY@0700 [facility] Meclizine HCl 12.5 mg 02/10/19 21:46 Antivert PO DAILY PRN dizziness Meclizine HCl 25 mg 02/10/19 22:00 02/11/19 07:33 Antivert PO 25 mg DAILY [facility] Administration Metoprolol Tartrate 50 mg 02/10/19 22:00 02/11/19 07:34 Lopressor PO 50 mg BID [facility] Administration Multivitamins 1 each 02/10/19 22:00 02/10/19 23:59 Theragran PO Not Given HS [facility] Naloxone HCl 0.2 mg 02/10/19 18:26 Narcan IV Q2M PRN Opioid Reversal Sevelamer Carbonate 800 mg 02/10/19 22:00 02/11/19 07:32 Renvela PO 800 mg TID [facility] Administration Vitamin E 400 unit 02/11/19 12:00 02/11/19 07:32 Vitamin E PO 400 unit DAILY@1200 [facility] Administration Intake and Output 02/10/19 02/11/19 02/11/19 22:59 06:59 14:59 Intake Total 640 Balance 640 Intake: Oral 640 Other: Voiding Method Bedpan Bedpan Bedpan Diaper Diaper Diaper Incontinent Incontinent Incontinent # Voids 1 2 1 # Bowel Movements 1 Weight 113.398 kg 113.398 kg Patient Weight 02/12/19 06:59 Weight 113.398 kg 02/11/19 05:51 02/11/19 05:51
[2019-02-11] MEDS: FUROSEMIDE 10 MG/ML 10 ML VIAL IV SCH ×2 (15:08→21:14)
--- NOTE | 2019-02-11 16:04 | P.HPIM ---
History of Present Illness H&P Date: 02/11/19 Chief Complaint: Fatigue History of presenting complaint: This is a very pleasant 73-year-old patient of Dr. Lopez. Chronic stable medical conditions include atrial fibrillation with a permanent pacemaker, asthma, questionable CHF, diabetes, DVT, GERD, hyperlipidemia, hypertension, osteoarthritis, chronic kidney disease. Most history is obtained by patient's significant other and caregiver from [place] [facility]. Patient was noted to be increasingly fatigued tired and he was taken to the [facility]. Basic workup was carried out there. Patient's found to have a bun of 18 and creatinine of 4.3. Chest x-ray was unremarkable. Patient herself is rather lethargic but arousable. Patient's appetite has been okay. And a baseline does wear a brief period of recent. Activity has gone down. Edema has been present Review of systems, could not really be done as patient rather lethargic. Relevant information from significant other as above Past medical history: Atrial fibrillation, CHF, stroke, diabetes, DVT, GERD, hyperlipidemia, essential hypertension, osteoarthritis, chronic kidney disease, permanent pacemaker Social history: Lives with Moses Cantu who is also patient's caregiver and her significant other. Does use a walker at home. No smoking or alcohol history. Physical examination: VITAL SIGNS: 96.9, 70, 17, 139/88, 99% on 4 L GENERAL: BMI 44.3, laying in bed lethargic but arousable, not in distress. EYES: Pupils equal. Conjunctiva normal. HEENT: External appearance of nose and ears normal, oral cavity grossly normal. NECK: JVD unable to assess; masses not palpable. HEART: Heart sounds are muffled,; some edema . LUNGS: Respiratory rate normal; decreased breath sounds. ABDOMEN: Soft, nontender, liver spleen not palpable, no masses palpable. PSYCH: Lethargic but arousable, no further assessment possiblel. NEUROLOGICAL: Cranial nerves grossly intact; no facial asymmetry, power and sensation grossly intact. LYMPHATICS: No lymph nodes palpable in the axilla and neck INVESTIGATIONS, reviewed in the clinical context: Blood work from the outside hospital shows Sodium 133 potassium 4.8 bun 18 creatinine 4.3 AST and ALTs both normal. Hemoglobin 11.4 white count 7.3 platelets 280 Chest x-ray film personally reviewed by me shows pulmonary edema and pleural effusion EKG tracing personally reviewed by me from the outside hospital shows paced rhythm 2-D echocardiogram per cardio and she notes from June 2018 show EF 55-60%, severe tricuspid regurgitation and severe pulmonary hypertension Assessment: -Acute metabolic encephalopathy likely from renal function -Stage V renal failure from underlying hypertensive nephrosclerosis, -Acute pulmonary edema from fluid overload -Severe tricuspid regurgitation secondary to severe secondary pulmonary hypertension -Persistent atrial fibrillation with a permanent pacemaker in place -Diabetes mellitus type 2, chronically on insulin -GERD -Hyperlipidemia -Essential hypertension -Primary osteoarthritis -Chronic kidney disease patient's baseline creatinine not known next morbid obesity BMI 44.3 -Chronic gait dysfunction at the baseline uses a walker -Kamar Ortiz is patient's DPOA and caregiver Plan: Patient seen by nephrology. The getting a vascular consult for a dialysis catheter placement. Renal replacement therapy will be started. In the meantime patient will be put on IV Lasix. Other home medications are to be continued. Patient also seen by cardiology. Care was discussed at length with the patient's caregiver question answered. We'll also DC patient Antivert and Benadryl. Prognosis guarded. Past Medical History Past Medical History: Atrial Fibrillation, Asthma, Heart Failure, CVA/TIA, Diabetes Mellitus, Deep Vein Thrombosis (DVT), Eye Disorder, GERD/Reflux, Hyperlipidemia, Hypertension, Osteoarthritis (OA), Renal Disease History of Any Multi-Drug Resistant Organisms: None Reported Past Surgical History: Adenoidectomy, Appendectomy, Cholecystectomy, Pacemaker, Tonsillectomy Past Anesthesia/Blood Transfusion Reactions: No Reported Reaction Type of Cardiac Device: Permanent Pacemaker Device Placement Date:: 2016 Past Psychological History: No Psychological Hx Reported Smoking Status: Never smoker Past Alcohol Use History: None Reported Past Drug Use History: None Reported - Past Family History Father Family Medical History: Myocardial Infarction ([place]) Additional Family Medical History / Comment(s): RHEUMATIC FEVER Medications and Allergies Home Medications Medication Instructions Recorded Confirmed Type Cholecalciferol [Vitamin D3 (25 1,000 unit PO DAILY 12/22/17 02/10/19 History Mcg = 1000 Iu)] Ezetimibe [Zetia] 10 mg PO HS 12/22/17 02/10/19 History Metoprolol Tartrate [Lopressor] 50 mg PO BID 12/22/17 02/10/19 History Ranitidine HCl [Zantac] 150 mg PO BID 12/22/17 02/10/19 History Albuterol Inhaler [Ventolin Hfa 2 puff INHALATION RT-Q6H PRN 07/27/18 02/10/19 History Inhaler] Pioglitazone [Actos] 15 mg PO DAILY 07/27/18 02/10/19 History Sevelamer [Renvela] 800 mg PO TID 07/27/18 02/10/19 History Albuterol Nebulized [Ventolin 2.5 mg INHALATION RT-TID PRN 08/19/18 02/10/19 History Nebulized] Ascorbic Acid [Vitamin C] 500 mg PO DAILY@1200 08/19/18 02/10/19 History Insulin Detemir [Levemir Flextouch] 55 units SQ DAILY 08/19/18 02/10/19 History Meclizine HCl 25 mg PO DAILY 08/19/18 02/10/19 History Acetaminophen Tab [Tylenol Tab] 250 mg PO QAM 02/10/19 02/10/19 History Acetaminophen [Tylenol] 500 mg PO HS 02/10/19 02/10/19 History Aspirin 81 mg PO BID 02/10/19 02/10/19 History Bumetanide 0.5 mg PO DAILY 02/10/19 02/10/19 History Cinnamon Bark [Cinnamon] 1,000 mg PO BID 02/10/19 02/10/19 History Exenatide Microspheres [Bydureon 2 mg SQ Q7D 02/10/19 02/10/19 History Pen] Furosemide [Lasix] 20 mg PO HS 02/10/19 02/10/19 History Furosemide [Lasix] 40 mg PO QAM 02/10/19 02/10/19 History Meclizine [Antivert] 12.5 mg PO DAILY PRN 02/10/19 02/10/19 History Multivitamins, Thera [Multivitamin 1 tab PO HS 02/10/19 02/10/19 History (formulary)] [place]-3/Dha/Epa/Fish Oil [Fish Oil 1 cap PO DAILY@119902/10/19 02/10/19 History 500 mg Softgel] Vitamin E (Dl,Tocopheryl Acet) 400 unit PO DAILY@1200 02/10/19 02/10/19 History [Vitamin E] diphenhydrAMINE HCL [Benadryl] 25 - 50 mg PO QID PRN 02/10/19 02/10/19 History Allergies Allergy/AdvReac Type Severity Reaction Status Date / Time lisinopril Allergy Itching Verified 02/10/19 17:41 Suxrypo-Esv-Fmf Reductase Allergy Itching Verified 02/10/19 17:41 Inhibitor Physical Exam Vitals: Vital Signs Temp Pulse Pulse Resp BP BP Pulse Ox 02/11/19 14:53 98.6 F 70 15 142/84 94 L 02/11/19 07:00 97.8 F 70 16 137/76 93 L 02/11/19 01:03 97.9 F 71 19 140/68 99 02/10/19 20:15 98.7 F 70 18 130/94 98 02/10/19 19:16 97.6 F 70 23 128/79 93 L 02/10/19 19:10 69 17 128/72 95 Intake and Output 02/11/19 02/11/19 02/11/19 06:59 14:59 22:59 Intake Total 960 Balance 960 Intake: Oral 960 Other: Voiding Method Bedpan Bedpan Diaper Diaper Incontinent Incontinent # Voids 2 1 # Bowel Movements 1 Weight 113.398 kg Results CBC & Chem 7: 02/11/19 05:51 02/11/19 05:51 Labs: Abnormal Lab Results - Last 24 Hours (Table) 02/10/19 02/10/19 02/10/19 Range/Units 16:48 16:48 17:40 Hgb (11.4-16.0) gm/dL MCHC 30.8 L (31.0-37.0) g/dL RDW 17.9 H (11.5-15.5) % Lymphocytes # (1.0-4.8) k/uL Lymphocytes # (Manual) 0.77 L (1.0-4.8) k/uL Monocytes # (Manual) 1.09 H (0-1.0) k/uL Potassium 7.4 H* (3.5-5.1) mmol/L Chloride 108 H (98-107) mmol/L Carbon Dioxide 21 L (22-30) mmol/L BUN 85 H (7-17) mg/dL Creatinine 4.05 H (0.52-1.04) mg/dL Glucose (74-99) mg/dL POC Glucose (mg/dL) (75-99) mg/dL Calcium (8.4-10.2) mg/dL Urine Appearance Slightly Cloudy H (Clear) Urine Protein 1+ H (Negative) 02/10/19 02/10/19 02/11/19 Range/Units 18:50 21:58 05:51 Hgb 10.8 L (11.4-16.0) gm/dL MCHC 30.0 L (31.0-37.0) g/dL RDW 17.6 H (11.5-15.5) % Lymphocytes # 0.7 L (1.0-4.8) k/uL Lymphocytes # (Manual) (1.0-4.8) k/uL Monocytes # (Manual) (0-1.0) k/uL Potassium (3.5-5.1) mmol/L Chloride 108 H (98-107) mmol/L Carbon Dioxide (22-30) mmol/L BUN 85 H (7-17) mg/dL Creatinine 4.23 H (0.52-1.04) mg/dL Glucose (74-99) mg/dL POC Glucose (mg/dL) 106 H (75-99) mg/dL Calcium 10.5 H (8.4-10.2) mg/dL Urine Appearance (Clear) Urine Protein (Negative) 02/11/19 02/11/19 Range/Units 05:51 11:07 Hgb (11.4-16.0) gm/dL MCHC (31.0-37.0) g/dL RDW (11.5-15.5) % Lymphocytes # (1.0-4.8) k/uL Lymphocytes # (Manual) (1.0-4.8) k/uL Monocytes # (Manual) (0-1.0) k/uL Potassium (3.5-5.1) mmol/L Chloride 109 H (98-107) mmol/L Carbon Dioxide (22-30) mmol/L BUN 83 H (7-17) mg/dL Creatinine 4.21 H (0.52-1.04) mg/dL Glucose 46 L* (74-99) mg/dL POC Glucose (mg/dL) 151 H (75-99) mg/dL Calcium 10.5 H (8.4-10.2) mg/dL Urine Appearance (Clear) Urine Protein (Negative) Thrombosis Risk Factor Assmnt - Choose All That Apply Any of the Below Risk Factors Present?: Yes Each Factor Represents 1 point: Abnormal pulmonary function (COPD), Medical pt on bed rest, Obesity (BMI >25), Swollen legs (current) Other Risk Factors: Yes Each Risk Factor Represents 2 Points: Age 61-74 years Other congenital or acquired thrombophilia - If yes, enter type in comment: No Thrombosis Risk Factor Assessment Total Risk Factor Score: 6 Thrombosis Risk Factor Assessment Level: High Risk
[2019-02-11 17:01] LABS: Glucose,Whole Blood 139 mg/dL (75-99)
[2019-02-11 19:23] LABS: Hepatitis B Surface AB- Quant 3.5 mIU/mL
[2019-02-11 21:03] LABS: Glucose,Whole Blood 165 mg/dL (75-99)
[2019-02-11] MEDS: MULTIVITAMINS, THERA 1 EACH TAB PO SCH (21:09)
[2019-02-11] MEDS: EZETIMIBE 10 MG TAB PO SCH (21:09)
[2019-02-12] MEDS: FUROSEMIDE 10 MG/ML 10 ML VIAL IV SCH ×3 (02:21→19:56)
[2019-02-12] MEDS ORDERED: SODIUM CHLORIDE 0.9% 250 ML IV ONE (06:40)
[2019-02-12] MEDS: MIDAZOLAM (PF) 2 MG/2 ML VIAL IV ONE ×2 (06:45→07:31)
[2019-02-12] MEDS ORDERED: LIDOCAINE 1% INJ 10MG/ML (20 ML MDV) SQ ONE ×2 (06:47→07:04)
--- NOTE | 2019-02-12 07:00 | CONS ---
DATE OF CONSULTATION: 02/12/2019 This is a 73-year-old female seen on renal consultation for placement of dialysis catheter. The patient has history of chronic kidney disease secondary to diabetes, kidney disease and cardiorenal syndrome. Creatinine is 4.2. The patient admitted to the hospital with fluid overload. She has no nausea or vomiting. The patient also has a history of atrial fibrillation, heart failure, diabetes mellitus, deep vein thrombosis, hyperlipidemia, hypertension. PHYSICAL EXAMINATION: On examination, neck is supple. No bruit appreciated. LUNGS: Clear and breath sounds are decreased. First and second sounds normal. ABDOMEN: Soft, nontender. Femorals are 2+. Patient has swelling of the extremities. PLAN: Placement of the dialysis catheter. Risks and complications of bleeding, infection, thrombosis has been discussed. MMODL / GODFREYN: [id number] / MTDD
[2019-02-12] MEDS: HEPARIN SODIUM 1,000 UN/ML (10ML VL) MISCELLANE ONE ×2 (07:40→07:41)
[2019-02-12 08:46] LABS: Glucose,Whole Blood 141 mg/dL (75-99)
--- NOTE | 2019-02-12 08:51 | PCN ---
PROCEDURE NOTE PREOPERATIVE DIAGNOSIS: Acute on chronic renal failure. PROCEDURE PERFORMED: Ultrasound-guided dialysis catheter placed right jugular approach. DESCRIPTION OF PROCEDURE: This patient was brought to the shop laborer. Right side of the neck and chest was prepped and draped in usual sterile manner. This patient has a history of pacemaker. According to the patient, they tried to go from the left side, but the vein was not accessible, so they placed pacemaker through the right side. The right side of the neck and chest was prepped and draped in usual sterile manner and 1% lidocaine was infiltrated. Ultrasound-guided micropuncture introduced into the right internal jugular vein. Micropuncture guide was passed which was parked at the inferior vena cava and then we created a tunnel. Through the tunnel, we brought the dialysis catheter. I have discussed with Dr. Louis Hill about the pacemaker and he agreed that we can go from the right side. After that we passed a regular guidewire which was parked at the inferior vena cava and dilator was advanced and sheath was advanced. Through the sheath we introduced the dialysis catheter. Tip of the catheter in superior vena cava and atrium. Patient tolerated the procedure well. Incision was closed with Vicryl and nylon. Dressing applied. MMODL / IJN: [id number] /
[2019-02-12] MEDS: METOPROLOL TARTRATE 50 MG TAB PO SCH ×2 (08:56→20:38)
[2019-02-12] MEDS: INSULIN ASPART (NovoLOG) 100 UNIT/ML VIAL SQ SCH ×8 (08:57→20:41)
[2019-02-12] MEDS: ASPIRIN 81 MG PO SCH ×2 (08:57→20:38)
[2019-02-12] MEDS: SEVELAMER 800 MG TAB PO SCH ×3 (08:57→20:38)
[2019-02-12] MEDS: ACETAMINOPHEN TAB 500 MG TAB PO SCH ×2 (08:57→20:38)
[2019-02-12] MEDS: CHOLECALCIFEROL 1,000 UNIT TAB PO SCH (08:57)
[2019-02-12] MEDS: FAMOTIDINE 20 MG TAB PO SCH (08:57)
[2019-02-12] MEDS ORDERED: HEPARIN SODIUM,PORCINE 5,000 UNIT/ML 1 ML VIAL ONE (09:55)
--- NOTE | 2019-02-12 10:17 | P.PN ---
Subjective Patient is seen in follow-up for chronic kidney disease. Patient has chronic kidney disease stage V secondary to diabetic kidney disease and cardiorenal syndrome. Patient had a permacath placed this morning and will be started on hemodialysis today. Currently resting in bed. Denies active chest pain or shortness of breath. She has been voiding. She is maintained on IV Lasix. Vital signs are stable. General: The patient appeared well nourished and normally developed. HEENT: Head exam is unremarkable. Neck is without jugular venous distension. LUNGS: Lungs are clear to auscultation and percussion. Breath sounds decreased. HEART: Rate and Rhythm are regular. First and second heart sounds normal. No murmurs, rubs or gallops. ABDOMEN: Abdominal exam reveals normal bowel sounds. Non-tender and non- distended. No evidence of peritonitis. EXTREMITITES: 1+ edema. Objective - Vital Signs Vital signs: Vital Signs Temp 98.3 F 02/12/19 01:30 Pulse 70 02/12/19 01:30 Resp 18 02/12/19 08:00 BP 135/95 02/12/19 01:30 Pulse Ox 96 02/12/19 01:30 Intake & Output 02/11/19 02/12/19 02/12/19 18:59 06:59 18:59 Intake Total 1220 50 Output Total 900 Balance 320 50 Weight 113.398 kg Intake: IV 50 Oral 1220 Output: Urine 900 Other: Voiding Method Bedpan Incontinent Incontinent Diaper Incontinent # Voids 1 # Bowel Movements 1 - Labs CBC & Chem 7: 02/11/19 05:51 02/11/19 05:51 Labs: Abnormal Lab Results - Last 24 Hours (Table) 02/11/19 02/11/19 02/11/19 Range/Units 11:07 16:59 21:02 POC Glucose (mg/dL) 151 H 139 H 165 H (75-99) mg/dL 02/12/19 Range/Units 08:44 POC Glucose (mg/dL) 141 H (75-99) mg/dL Assessment and Plan Plan: Assessment: 1. Chronic kidney disease stage V secondary to diabetic kidney disease and cardiorenal syndrome. 2. Diastolic CHF with severe tricuspid regurgitation and pulmonary hypertension. 3. Diabetes mellitus. 4. Hypertension with chronic kidney disease. Controlled. 5. Volume overload. 6. Chronic kidney disease mineral bone disease maintained on Renvela. Plan: Maintain IV Lasix 80 mg twice daily. Permacath placed on February 11. Scheduled for first treatment of hemodialysis today and second treatment tomorrow. manager travel to help facilitate outpatient hemodialysis set up. Follow-up repeat echocardiogram. T
[2019-02-12 11:41] LABS: Glucose,Whole Blood 167 mg/dL (75-99)
--- NOTE | 2019-02-12 11:44 | CDI ---
Documentation Clarification Form Date: 02/12/2019 10:09:00 AM From: Flor Portillo RN, CCDS Admit Date: 02/10/2019 6:28:00 PM Patient Name: Ashish Paul Visit Number: [id number] Discharge Date: ATTENTION: The Clinical Documentation Specialists (CDI) and [facility] Coding Staff appreciate your assistance in clarifying documentation. Please respond to the clarification below the line at the bottom and electronically sign. The CDI & [facility] Coding staff will review the response and follow-up if needed. Please note: Queries are made part of the Legal Health Record. If you have any questions, please contact the author of this message via ITS. Dr. Cortez Harman 02/11/19 Cardiology consult: (Dr. Metcalf): Acute on chronic diastolic heart failure with significant fluid overload secondary to cor pulmonale and chronic kidney disease 02/11/19 Nephrology (): Diastolic CHF with severe tricuspid regurgitation and pulmonary hypertension. Volume overload. History/Risk Factors: Atrial Fibrillation, Congestive heart failure, Diabetes Mellitus, Chronic Renal Failure stage V Clinical Indicators: 73-year-old female with complaints of palpitations on physical exam findings consistent with congestive heart failure. Extremities 2+ bilateral lower extremity pitting edema. No significant shortness of breath. VS/Pulse OX: 139/88 70 17 96.9 99 % 4/L NC BNP: 27241 Echocardiogram Results: June 2019 reveals preserved LV systolic function with ejection fraction 55-60%, severe tricuspid regurgitation, mild mitral regurgitation and severe pulmonary hypertension with an RVSP of 83 mmHg. Chest X Ray: Cardiogenic pulmonary edema pattern, with bilateral posterior pleural effusion Treatment: Lasix IV BID Lopressor PO BID Document accurate intake and out along with daily weights. Permacath placement for hemodialysis In your professional opinion, can you please further clarify the Acute pulmonary edema from fluid overload if known? Acute pulmonary edema from fluid overload with Acute Diastolic Heart Failure Other, please specify Unable to Determine (Last Revision: October 2017) acute on chronic CHF from diastolic dysfunction EF 60 %, POA MTDD
[2019-02-12] MEDS: INSULIN DETEMIR (LEVEMIR) 100 UNIT/ML SYR SQ SCH (11:50)
[2019-02-12] MEDS: VITAMIN E (DL,TOCOPHERYL ACET) 400 UNIT CAP PO SCH (11:55)
[2019-02-12] MEDS: ASCORBIC ACID 500 MG TAB PO SCH (11:55)
--- NOTE | 2019-02-12 12:13 | ECHOF ---
Referral Reason:sob MEASUREMENTS -------- HEIGHT: 160.0 cm WEIGHT: 113.4 kg BP: 137/76 RVIDd: 3.4 cm (< 3.3) IVSd: 1.4 cm (0.6 - 1.1) LVIDd: 4.5 cm (3.9 - 5.3) LVPWd: 1.3 cm (0.6 - 1.1) IVSs: 2.0 cm LVIDs: 3.0 cm LVPWs: 1.9 cm LA Diam: 3.9 cm (2.7 - 3.8) LAESV Index (A-L): 29.06 ml/m Ao Diam: 2.9 cm (2.0 - 3.7) AV Cusp: 2.3 cm (1.5 - 2.6) MV EXCURSION: 16.594 mm (> 18.000) MV EF SLOPE: 66 mm/s (70 - 150) EPSS: 0.7 cm MV E Dell: 1.25 m/s MV DecT: 132 ms MV A Dell: 0.49 m/s MV E/A Ratio: 2.57 RAP: 5.00 mmHg RVSP: 63.64 mmHg FINDINGS -------- Sinus rhythm. This was a technically difficult study with suboptimal apical views. The left ventricular size is normal. There is moderate concentric left ventricular hypertrophy. O verall left ventricular systolic function is normal with, an EF between 55 - 60 %. The right ventricle is mildly enlarged. LA is midly dilated 29-33ml/m2. The right atrium is normal in size. Interatrial and interventricular septum intact. There is mild aortic valve sclerosis. The mitral valve leaflets are mildly thickened. Mild mitral annular calcification present. Mild m itral regurgitation is present. Severe tricuspid regurgitation present. There is severe pulmonary hypertension. The right ventric ular systolic pressure, as measured by Doppler, is 63.64mmHg. Trace/mild (physiologic) pulmonic regurgitation. The aortic root size is normal. The inferior vena cava is dilated with no significant inspiratory collapse which is consistent estima carlos right atrial pressure of >15 mmHg. There is no pericardial effusion. CONCLUSIONS -------- 1. Sinus rhythm. 2. This was a technically difficult study with suboptimal apical views. 3. The left ventricular size is normal. 4. There is moderate concentric left ventricular hypertrophy. 5. Overall left ventricular systolic function is normal with, an EF between 55 - 60 %. 6. The right ventricle is mildly enlarged. 7. LA is midly dilated 29-33ml/m2. 8. The right atrium is normal in size. 9. Interatrial and interventricular septum intact. 10. There is mild aortic valve sclerosis. 11. The mitral valve leaflets are mildly thickened. 12. Mild mitral annular calcification present. 13. Mild mitral regurgitation is present. 14. Severe tricuspid regurgitation present. 15. There is severe pulmonary hypertension. 16. The right ventricular systolic pressure, as measured by Doppler, is 63.64mmHg. 17. Trace/mild (physiologic) pulmonic regurgitation. 18. The aortic root size is normal. 19. The inferior vena cava is dilated with no significant inspiratory collapse which is consistent es timated right atrial pressure of >15 mmHg. 20. There is no pericardial effusion. [employer]PER: Lea Gallardo RDCS
--- NOTE | 2019-02-12 12:19 | CDI ---
Documentation Clarification Form Date: 02/12/2019 11:46:43 AM From: Flor Portillo RN, CCDS Admit Date: 02/10/2019 6:28:00 PM Patient Name: Ashish Paul Visit Number: [id number] Discharge Date: ATTENTION: The Clinical Documentation Specialists (CDI) and [facility] Coding Staff appreciate your assistance in clarifying documentation. Please respond to the clarification below the line at the bottom and electronically sign. The CDI & [facility] Coding staff will review the response and follow-up if needed. Please note: Queries are made part of the Legal Health Record. If you have any questions, please contact the author of this message via ITS. Dr. Cortez Harman Per ED: patient is on her normal oxygen regimen and saturating 97% without any signs of labored breathing or chest pain. History/Risk Factors: Atrial Fibrillation, Congestive Heart Failure, Diabetes, Renal disease, Hypertension Home oxygen: Per ED evaluation Clinical Indicators: 73-year-old female present with palpitations and concerns of congestive heart failure. ED assessment of present illness notes she wears oxygen /. She denies any worsening of her shortness breath. Vital signs: 139/88 70 17 Pulse oximetry: 97 % 4/L NC 95 % 4/L, 93% 4/L Chest x-ray: Pulmonary edema and bilateral posterior pleural effusion. Lung/Breathing assessment: Decreased breath sounds Treatment: Breathing tx Ventolin Nebulized PRN Monitor O2 Sats, (titrate) Lasix IV Monitor I/O, Daily weight Permacath placement for Hemodialysis In your professional opinion, can you please clarify if these findings signify one of the following conditions? Chronic Hypoxic Respiratory Failure on home O2 Other Diagnosis, please specify Unable to determine (Last Revision: October 2017) acute hypoxic respiratory failure from CHF,POA MTDD
--- NOTE | 2019-02-12 13:34 | P.PN ---
Subjective This is a pleasant 73-year-old female past medical history significant for paroxysmal atrial fibrillation not on residential anti-coagulation secondary to poor renal function and frequent falls causing prolonged bleeding in the past, nonrheumatic mitral valve insufficiency, hypertension, sick sinus syndrome status post permanent pacemaker implantation, diabetes mellitus, dyslipidemia, gastroesophageal reflux disease, chronic kidney disease and morbid obesity. She follows in the office with Dr. Alvarado. We have been asked to see her in consultation secondary to heart failure. At the time of my exam she is quite sleepy and only opens her eyes briefly but falls back to sleep immediately and is not answering any questions. Per the friend and caregiver at the bedside she is quite tired and was up all night. Per nursing staff this has been her baseline all day. Information is obtained from the nurse, medical record and caregiver at the bedside. Caregiver brought patient in for increased lower extremity edema. No significant shortness of breath. No chest pain, dizziness or palpitations verbalized to the caregiver prior to admission. 02/12/2019 Pt is seen and examined sitting up in bed, much more alert from yesterday's exam. However, she does seem confused regarding the circumstances of being hospitalized. She is complaining of bilateral lower extremity discomfort and swelling. Currently maintained on IV lasix per nephrology. Perma-cath placed this morning. Awaiting dialysis. She denies chest pain, shortness of breath, di zziness or palpitations. Blood pressure 136/81 heart rate 70. Echocardiogram obtained reveals preserved LV systolic function with EF 55-60%, mild MR, severe TR and severe pulmonary hypertension with RVSP 63 mmHg. GENERAL: This is a 73-year-old female lethargic at the time of my examination. Morbidly obese. HEENT: Head is atraumatic, normocephalic. Pupils are equal, round. Sclerae anic teric. Conjunctivae are clear. Mucous membranes of the mouth are moist. Neck is supple. There is no jugular venous distention. No carotid bruit is heard. LUNGS: Clear to auscultation no rales, wheezes or rhonchi. No chest wall tenderness is noted on palpation or with deep breathing. Diminished bila terally. HEART: Regular rate and rhythm with systolic ejection murmur at the left sternal border, no rubs or gallops. S1 and S2 heard. EXTREMITIES: 2+ bilateral lower extremity pitting edema. No calf tenderness noted. ASSESSMENT Acute on chronic diastolic heart failure with significant fluid overload secondary to cor pulmonale and chronic kidney disease Chronic kidney disease, nephrology has seen the patient and will start dialysis tomorrow Paroxymal atrial fibrillation not on residential anticoagulation Mitral valve insufficiency Diabetes mellitus Hypertension Dyslipidemia History of permanent pacemaker implantation PLAN Continue current medical regimen. Coumadin will be initiated for thromboembolic protection. Assess for signs and symptoms of bleeding. Target INR 2-3. Nurse Practitioner note has been reviewed, I agree with a documented findings and plan of care. Patient was seen and examined. Objective - Vital Signs Vital signs: Vital Signs Temp 98.2 F 02/12/19 08:07 Pulse 70 02/12/19 10:22 Resp 15 02/12/19 08:07 BP 136/81 02/12/19 10:22 Pulse Ox 95 02/12/19 08:07 Intake & Output 02/11/19 02/12/19 02/12/19 18:59 06:59 18:59 Intake Total 1220 50 Output Total 900 Balance 320 50 Weight 113.398 kg Intake: IV 50 Oral 1220 Output: Urine 900 Other: Voiding Method Bedpan Incontinent Incontinent Diaper Incontinent # Voids 1 # Bowel Movements 1 - Labs CBC & Chem 7: 02/11/19 05:51 02/11/19 05:51 Labs: Abnormal Lab Results - Last 24 Hours (Table) 02/11/19 02/11/19 02/12/19 Range/Units 16:59 21:02 08:44 POC Glucose (mg/dL) 139 H 165 H 141 H (75-99) mg/dL 02/12/19 Range/Units 11:40 POC Glucose (mg/dL) 167 H (75-99) mg/dL
--- NOTE | 2019-02-12 14:49 | XR ---
EXAMINATION TYPE: XR chest 1V DATE OF EXAM: 02/12/2019 CLINICAL HISTORY: New dialysis catheter insertion. TECHNIQUE: Single AP portable upright view of the chest is obtained. COMPARISON: Chest x-ray from 2 days earlier FINDINGS: New large bore right internal jugular dialysis catheter terminating in right atrium. Persi stent dual-lead pacemaker with proximal lead terminating in SVC. This is unchanged from several older x-rays. Persistent cardiomegaly with small bilateral pleural effusions and left basilar opacity as w ell as central vascular congestion. Cholecystectomy clips are present. No pneumothorax is seen. IMPRESSION: Right internal jugular dialysis catheter terminating in right atrium. Persistent fluid overload state or CHF exacerbation as there is cardiomegaly with moderate central vascular congestion and small lisa ateral pleural effusions all are redemonstrated. Associated left basilar atelectasis and/or infiltrat e is again seen.
[2019-02-12 17:10] LABS: Glucose,Whole Blood 173 mg/dL (75-99)
[2019-02-12] MEDS: WARFARIN 5 MG TAB PO SCH (17:50)
--- NOTE | 2019-02-12 17:53 | P.PN ---
Progress Note - Text Progress Note Date: 02/12/19 Chief Complaint: Fatigue Interval history: This is a very pleasant 73-year-old patient of Dr. talbot. Chronic stable medical conditions include atrial fibrillation with a permanent pacemaker, asthma, questionable CHF, diabetes, DVT, GERD, hyperlipidemia, hypertension, osteoarthritis, chronic kidney disease. Most history is obtained by patient's significant other and caregiver from [place] [facility]. Patient was noted to be increasingly fatigued tired and he was taken to the [facility]. Basic workup was carried out there. Patient's found to have a bun of 18 and creatinine of 4.3. Chest x-ray was unremarkable. Patient herself is rather lethargic but arousable. Patient's appetite has been okay. And a baseline does wear a brief period of recent. Activity has gone down. Edema has been present Admitting diagnosis-acute metabolic nephropathy and acute pulmonary edema Today-doing much better. Sitting up in a chair. More awake. Had all her breakfast. Caregiver not present. Patient earlier today had a hemodialysis catheter placed. By Dr. Sharpe. Review of systems: Was done for constitutional, cardiovascular, GI, pulmonary. relevant finding as above Active Medications Acetaminophen (Tylenol Tab) 500 mg PO [facility] Last Admin: 02/11/19 18:08 Dose: 500 mg Documented by: Acetaminophen (Tylenol Tab) 250 mg PO QAM [facility] Last Admin: 02/12/19 08:57 Dose: 250 mg Documented by: Albuterol Sulfate (Ventolin Nebulized) 2.5 mg INHALATION RT-TID PRN PRN Reason: Shortness Of Breath Ascorbic Acid (Vitamin C) 500 mg PO DAILY@1200 [facility] Last Admin: 02/12/19 11:55 Dose: 500 mg Documented by: Aspirin (Aspirin) 81 mg PO BID [facility] Last Admin: 02/12/19 08:57 Dose: 81 mg Documented by: Cholecalciferol (Vitamin D3 (25 Mcg = 1000 Iu)) 1,000 unit PO DAILY [facility] Last Admin: 02/12/19 08:57 Dose: 1,000 unit Documented by: Ezetimibe (Zetia) 10 mg PO [facility] Last Admin: 02/11/19 21:09 Dose: 10 mg Documented by: Famotidine (Pepcid) 20 mg PO DAILY [facility] Last Admin: 02/12/19 08:57 Dose: 20 mg Documented by: Furosemide (Lasix) 80 mg IV Q12H [facility] Last Admin: 02/12/19 02:21 Dose: 80 mg Documented by: Insulin Aspart (Novolog) 0 unit SQ [facility]; Protocol Last Admin: 02/12/19 17:15 Dose: Not Given Documented by: Insulin Aspart (Novolog) 0 unit SQ ACHS [facility]; Protocol Last Admin: 02/12/19 17:21 Dose: 2 unit Documented by: Insulin Detemir (Levemir) 55 unit SQ DAILY@0700 [facility] Last Admin: 02/12/19 11:50 Dose: Not Given Documented by: Metoprolol Tartrate (Lopressor) 50 mg PO BID [facility] Last Admin: 02/12/19 08:56 Dose: 50 mg Documented by: Miscellaneous Information (Coumadin Per Pharmacy) 0 each MISCELLANE DIRECTED PRN PRN Reason: ANTICOAG Multivitamins (Theragran) 1 each PO HS [facility] Last Admin: 02/11/19 21:09 Dose: 1 each Documented by: Naloxone HCl (Narcan) 0.2 mg IV Q2M PRN PRN Reason: Opioid Reversal Sevelamer Carbonate (Renvela) 800 mg PO TID [facility] Last Admin: 02/12/19 17:20 Dose: 800 mg Documented by: Vitamin E (Vitamin E) 400 unit PO DAILY@1200 [facility] Last Admin: 02/12/19 11:55 Dose: 400 unit Documented by: Warfarin Sodium (Coumadin) 5 mg PO DAILY@1800 [facility] Physical examination: VITAL SIGNS: 98.2, 70, 15, 118/68, 95% on 2 L GENERAL: Sitting up in a chair. Looking better more awake, though slightly tired. EYES: Pupils equal. Conjunctiva normal. HEENT: External appearance of nose and ears normal, oral cavity grossly normal. NECK: JVD unable to assess; masses not palpable. HEART: Heart sounds are muffled,; some edema . LUNGS: Respiratory rate normal; decreased breath sounds. ABDOMEN: Soft, nontender, liver spleen not palpable, no masses palpable. PSYCH: Far more awake today. Answering questions more appropriately. INVESTIGATIONS, reviewed in the clinical context: [id number], [id number], 173 Blood work from the outside hospital shows Sodium 133 potassium 4.8 bun 18 creatinine 4.3 AST and ALTs both normal. Hemoglobin 11.4 white count 7.3 platelets 280 Chest x-ray film personally reviewed by me shows pulmonary edema and pleural effusion EKG tracing personally reviewed by me from the outside hospital shows paced rhythm 2-D echocardiogram per cardio and she notes from June 2018 show EF 55-60%, severe tricuspid regurgitation and severe pulmonary hypertension Assessment: -Acute metabolic encephalopathy likely from renal function, improving -Stage V renal failure from underlying hypertensive nephrosclerosis, for renal replacement therapy -Acute pulmonary edema from fluid overload -Severe tricuspid regurgitation secondary to severe secondary pulmonary hypertension -Persistent atrial fibrillation with a permanent pacemaker in place -Diabetes mellitus type 2, chronically on insulin -GERD -Hyperlipidemia -Essential hypertension -Primary osteoarthritis -Chronic kidney disease patient's baseline creatinine not known next morbid obesity BMI 44.3 -Chronic gait dysfunction at the baseline uses a walker -Kamar Ortiz is patient's DPOA and caregiver Plan: Patient had a hemodialysis catheter placed today. Due for first and assist this afternoon. Patient care was discussed with the patient. Follow
[2019-02-12] MEDS ORDERED: WARFARIN 5 MG TAB PO SCH (18:00)
[2019-02-12] MEDS ORDERED: FUROSEMIDE 80 MG TAB PO STA (18:27)
[2019-02-12 19:41] LABS: Prothrombin Time 10.6 sec (9.0-12.0)
[2019-02-12 19:50] LABS: Calcium 9.9 mg/dL (8.4-10.2); Magnesium 2.2 mg/dL (1.6-2.3); Phosphorus 5.2 mg/dL (2.5-4.5); Potassium 4.4 mmol/L (3.5-5.1)
[2019-02-12 20:10] LABS: Glucose,Whole Blood 182 mg/dL (75-99)
[2019-02-12] MEDS: EZETIMIBE 10 MG TAB PO SCH (20:38)
[2019-02-12] MEDS: MULTIVITAMINS, THERA 1 EACH TAB PO SCH (20:38)
[2019-02-13 07:11] LABS: Glucose,Whole Blood 142 mg/dL (75-99)
[2019-02-13] MEDS: ASPIRIN 81 MG PO SCH ×2 (07:33→22:31)
[2019-02-13] MEDS: METOPROLOL TARTRATE 50 MG TAB PO SCH ×2 (07:33→22:31)
[2019-02-13] MEDS: ACETAMINOPHEN TAB 500 MG TAB PO SCH ×2 (07:33→22:31)
[2019-02-13] MEDS: FAMOTIDINE 20 MG TAB PO SCH (07:33)
[2019-02-13] MEDS: CHOLECALCIFEROL 1,000 UNIT TAB PO SCH (07:33)
[2019-02-13] MEDS: INSULIN DETEMIR (LEVEMIR) 100 UNIT/ML SYR SQ SCH (07:34)
[2019-02-13] MEDS: INSULIN ASPART (NovoLOG) 100 UNIT/ML VIAL SQ SCH ×5 (07:34→22:32)
[2019-02-13] MEDS: SEVELAMER 800 MG TAB PO SCH ×3 (07:34→22:32)
[2019-02-13] MEDS: FUROSEMIDE 80 MG TAB PO SCH ×2 (07:35→17:05)
[2019-02-13] MEDS: VITAMIN E (DL,TOCOPHERYL ACET) 400 UNIT CAP PO SCH (07:35)
[2019-02-13] MEDS: ASCORBIC ACID 500 MG TAB PO SCH (07:37)
[2019-02-13 09:19] LABS: INR 0.9 (<1.2); Prothrombin Time 10.2 sec (9.0-12.0)
[2019-02-13 09:29] LABS: Calcium 10.1 mg/dL (8.4-10.2); Potassium 4.8 mmol/L (3.5-5.1)
--- NOTE | 2019-02-13 09:42 | IR ---
EXAMINATION TYPE: IR cvc insert central tunneled DATE OF EXAM: 02/12/2019 COMPARISON: NONE HISTORY: Fluoroscopy time. Fluoroscopy was provided to the referring clinician.
[2019-02-13 12:10] LABS: Glucose,Whole Blood 143 mg/dL (75-99)
--- NOTE | 2019-02-13 12:17 | P.PN ---
Subjective This is a pleasant 73-year-old female past medical history significant for paroxysmal atrial fibrillation not on mcc anti-coagulation secondary to poor renal function and frequent falls causing prolonged bleeding in the past, nonrheumatic mitral valve insufficiency, hypertension, sick sinus syndrome status post permanent pacemaker implantation, diabetes mellitus, dyslipidemia, gastroesophageal reflux disease, chronic kidney disease and morbid obesity. She follows in the office with Dr. Alvarado. We have been asked to see her in consultation secondary to heart failure. At the time of my exam she is quite sleepy and only opens her eyes briefly but falls back to sleep immediately and is not answering any questions. Per the friend and caregiver at the bedside she is quite tired and was up all night. Per nursing staff this has been her baseline all day. Information is obtained from the nurse, medical record and caregiver at the bedside. Caregiver brought patient in for increased lower extremity edema. No significant shortness of breath. No chest pain, dizziness or palpitations verbalized to the caregiver prior to admission. 02/12/2019 Pt is seen and examined sitting up in bed, much more alert from yesterday's exam. However, she does seem confused regarding the circumstances of being hospitalized. She is complaining of bilateral lower extremity discomfort and swelling. Currently maintained on IV lasix per nephrology. Perma-cath placed this morning. Awaiting dialysis. She denies chest pain, shortness of breath, di zziness or palpitations. Blood pressure 136/81 heart rate 70. Echocardiogram obtained reveals preserved LV systolic function with EF 55-60%, mild MR, severe TR and severe pulmonary hypertension with RVSP 63 mmHg. 02/13/2019 Pt is seen and examined sitting up in bed eating breakfast. She underwent d ialysis yesterday. Nephrology has transitioned to PO lasix. She denies shortness of breath, chest pain, dizziness or palpitations. Blood pressure 145/80 heart rate 70 afebrile and maintaining oxygen saturation on nasal cannula. Laboratory data reviewed, INR 0.9, sodium 140, potassium 4.8, creatinine 3.55. GENERAL: This is a 73-year-old female lethargic at the time of my examination. Morbidly obese. HEENT: Head is atraumatic, normocephalic. Pupils are equal, round. Sclerae anicteric. Conjunctivae are clear. Mucous membranes of the mouth are moist. Neck is supple. There is no jugular venous distention. No carotid bruit is heard. LUNGS: Clear to auscultation no rales, wheezes or rhonchi. No chest wall tenderness is noted on palpation or with deep breathing. Diminished bilaterall y. HEART: Regular rate and rhythm with systolic ejection murmur at the left sternal border, no rubs or gallops. S1 and S2 heard. EXTREMITIES: 1+ bilateral lower extremity pitting edema. No calf tenderness noted. ASSESSMENT Acute on chronic diastolic heart failure with significant fluid overload sec ondary to cor pulmonale and chronic kidney disease Chronic kidney disease, nephrology has seen the patient and will start dialysis tomorrow Paroxymal atrial fibrillation, initiated on coumadin Mitral valve insufficiency Diabetes mellitus Hypertension Dyslipidemia History of permanent pacemaker implantation PLAN Continue current medical regimen. Transitioned to PO lasix. Fluid overload has improved with dialysis. Mild ongoing lower extremity edema. Follow up with Dr. Alvarado upon discharge. We will continue to follow as needed, please call with further questions or concerns. Nurse Practitioner note has been reviewed, I agree with a documented findings and plan of care. Patient was seen and examined. Objective - Vital Signs Vital signs: Vital Signs Temp 97.4 F L 02/13/19 07:00 Pulse 70 02/13/19 08:00 Resp 16 02/13/19 08:00 BP 145/80 02/13/19 07:00 Pulse Ox 99 02/13/19 07:00 Intake & Output 02/12/19 02/13/19 02/13/19 18:59 06:59 18:59 Intake Total 118 Output Total 1999 Balance -1999 118 Weight 116 kg 116.5 kg Intake: Oral 118 Output: Hemodialysis 1999 Other: Voiding Method Incontinent Incontinent Incontinent - Labs CBC & Chem 7: 02/11/19 05:51 02/13/19 08:34 Labs: Abnormal Lab Results - Last 24 Hours (Table) 02/12/19 02/12/19 02/12/19 Range/Units 17:08 19:08 20:07 BUN 64 H (7-17) mg/dL Creatinine 3.48 H (0.52-1.04) mg/dL Glucose 168 H (74-99) mg/dL POC Glucose (mg/dL) 173 H 182 H (75-99) mg/dL Phosphorus 5.2 H (2.5-4.5) mg/dL 02/13/19 02/13/19 02/13/19 Range/Units 07:00 08:34 11:59 BUN 68 H (7-17) mg/dL Creatinine 3.55 H (0.52-1.04) mg/dL Glucose 134 H (74-99) mg/dL POC Glucose (mg/dL) 142 H 143 H (75-99) mg/dL Phosphorus (2.5-4.5) mg/dL
--- NOTE | 2019-02-13 13:25 | P.PN ---
Subjective Patient is seen in follow-up for chronic kidney disease. Patient has chronic kidney disease stage V secondary to diabetic kidney disease and cardiorenal syndrome. Patient had a permacath placed February 12 and was started on hemodialysis. Currently seen while undergoing second treatment of hemodialysis. Denies active chest pain or shortness of breath. She has been voiding. She is maintained on po Lasix. Vital signs are stable. General: The patient appeared well nourished and normally developed. HEENT: Head exam is unremarkable. Neck is without jugular venous distension. LUNGS: Lungs are clear to auscultation and percussion. Breath sounds decreased. HEART: Rate and Rhythm are regular. First and second heart sounds normal. No murmurs, rubs or gallops. ABDOMEN: Abdominal exam reveals normal bowel sounds. Non-tender and non- distended. No evidence of peritonitis. EXTREMITITES: 1+ edema. Objective - Vital Signs Vital signs: Vital Signs Temp 97.4 F L 02/13/19 07:00 Pulse 70 02/13/19 08:00 Resp 16 02/13/19 08:00 BP 145/80 02/13/19 07:00 Pulse Ox 99 02/13/19 07:00 Intake & Output 02/12/19 02/13/19 02/13/19 18:59 06:59 18:59 Intake Total 118 Output Total 1999 Balance -1999 118 Weight 116 kg 116.5 kg Intake: Oral 118 Output: Hemodialysis 1999 Other: Voiding Method Incontinent Incontinent Incontinent - Labs CBC & Chem 7: 02/11/19 05:51 02/13/19 08:34 Labs: Abnormal Lab Results - Last 24 Hours (Table) 02/12/19 02/12/19 02/12/19 Range/Units 17:08 19:08 20:07 BUN 64 H (7-17) mg/dL Creatinine 3.48 H (0.52-1.04) mg/dL Glucose 168 H (74-99) mg/dL POC Glucose (mg/dL) 173 H 182 H (75-99) mg/dL Phosphorus 5.2 H (2.5-4.5) mg/dL 02/13/19 02/13/19 02/13/19 Range/Units 07:00 08:34 11:59 BUN 68 H (7-17) mg/dL Creatinine 3.55 H (0.52-1.04) mg/dL Glucose 134 H (74-99) mg/dL POC Glucose (mg/dL) 142 H 143 H (75-99) mg/dL Phosphorus (2.5-4.5) mg/dL Assessment and Plan Plan: Assessment: 1. Chronic kidney disease stage V secondary to diabetic kidney disease and cardiorenal syndrome. 2. Diastolic CHF with severe tricuspid regurgitation and pulmonary hypertension. 3. Diabetes mellitus. 4. Hypertension with chronic kidney disease. Controlled. 5. Volume overload. Better with ultrafiltration. 6. Chronic kidney disease mineral bone disease maintained on Renvela. Plan: Maintain oral Lasix 80 mg twice daily. Currently seen while undergoing hemodialysis. Third treatment tomorrow. Outpatient dialysis being set up by case management.
[2019-02-13 16:22] LABS: Glucose,Whole Blood 116 mg/dL (75-99)
[2019-02-13] MEDS: WARFARIN 5 MG TAB PO SCH (17:05)
--- NOTE | 2019-02-13 17:28 | P.PN ---
Progress Note - Text Progress Note Date: 02/13/19 Chief Complaint: Fatigue Interval history: This is a very pleasant 73-year-old patient of Dr. talbot. Chronic stable medical conditions include atrial fibrillation with a permanent pacemaker, asthma, questionable CHF, diabetes, DVT, GERD, hyperlipidemia, hypertension, osteoarthritis, chronic kidney disease. Most history is obtained by patient's significant other and caregiver from [facility]. Patient was noted to be increasingly fatigued tired and he was taken to the [facility]. Basic workup was carried out there. Patient's found to have a bun of 18 and creatinine of 4.3. Chest x-ray was unremarkable. Patient herself is rather lethargic but arousable. Patient's appetite has been okay. And a baseline does wear a brief period of recent. Activity has gone down. Edema has been present Admitting diagnosis-acute metabolic nephropathy and acute pulmonary edema. Patient had a hemodialysis catheter placed. Started on hemodialysis Today-received hemodialysis today. Doing better. He tolerated diet. No nausea vomiting. Awake.. Review of systems: Was done for constitutional, cardiovascular, GI, pulmonary. relevant finding as above Active Medications Acetaminophen (Tylenol Tab) 500 mg PO [facility] Last Admin: 02/12/19 20:38 Dose: 500 mg Documented by: Acetaminophen (Tylenol Tab) 250 mg PO QAM [facility] Last Admin: 02/13/19 07:33 Dose: 250 mg Documented by: Albuterol Sulfate (Ventolin Nebulized) 2.5 mg INHALATION RT-TID PRN PRN Reason: Shortness Of Breath Ascorbic Acid (Vitamin C) 500 mg PO DAILY@1200 [facility] Last Admin: 02/13/19 07:37 Dose: 500 mg Documented by: Aspirin (Aspirin) 81 mg PO BID [facility] Last Admin: 02/13/19 07:33 Dose: 81 mg Documented by: Cholecalciferol (Vitamin D3 (25 Mcg = 1000 Iu)) 1,000 unit PO DAILY [facility] Last Admin: 02/13/19 07:33 Dose: 1,000 unit Documented by: Ezetimibe (Zetia) 10 mg PO [facility] Last Admin: 02/12/19 20:38 Dose: 10 mg Documented by: Famotidine (Pepcid) 20 mg PO DAILY [facility] Last Admin: 02/13/19 07:33 Dose: 20 mg Documented by: Furosemide (Lasix) 80 mg PO BID@0900,1600 [facility] Last Admin: 02/13/19 17:05 Dose: 80 mg Documented by: Insulin Aspart (Novolog) 0 unit SQ ACHS [facility]; Protocol Last Admin: 02/13/19 17:10 Dose: Not Given Documented by: Insulin Detemir (Levemir) 55 unit SQ DAILY@0700 [facility] Last Admin: 02/13/19 07:34 Dose: Not Given Documented by: Metoprolol Tartrate (Lopressor) 50 mg PO BID [facility] Last Admin: 02/13/19 07:33 Dose: 50 mg Documented by: Miscellaneous Information (Coumadin Per Pharmacy) 0 each MISCELLANE DIRECTED PRN PRN Reason: ANTICOAG Multivitamins (Theragran) 1 each PO HS [facility] Last Admin: 02/12/19 20:38 Dose: 1 each Documented by: Naloxone HCl (Narcan) 0.2 mg IV Q2M PRN PRN Reason: Opioid Reversal Sevelamer Carbonate (Renvela) 800 mg PO TID [facility] Last Admin: 02/13/19 17:05 Dose: 800 mg Documented by: Vitamin E (Vitamin E) 400 unit PO DAILY@1200 [facility] Last Admin: 02/13/19 07:35 Dose: 400 unit Documented by: Warfarin Sodium (Coumadin) 5 mg PO DAILY@1800 [facility] Last Admin: 02/13/19 17:05 Dose: 5 mg Documented by: Physical examination: VITAL SIGNS: 97.8, 70, 14, 141/72, 97% on 4 L GENERAL: Sitting up in a chair. Comfortable. EYES: Pupils equal. Conjunctiva normal. HEENT: External appearance of nose and ears normal, oral cavity grossly normal. NECK: JVD unable to assess; masses not palpable. HEART: Heart sounds are muffled,; some edema . LUNGS: Respiratory rate normal; decreased breath sounds. ABDOMEN: Soft, nontender, liver spleen not palpable, no masses palpable. PSYCH: Answer questions. INVESTIGATIONS, reviewed in the clinical context: Potassium 4.8 bun 68 creatinine 3.55 Accu-Cheks noted Blood work from the outside hospital shows Sodium 133 potassium 4.8 bun 18 creatinine 4.3 AST and ALTs both normal. Hemoglobin 11.4 white count 7.3 platelets 280 Chest x-ray film personally reviewed by me shows pulmonary edema and pleural effusion EKG tracing personally reviewed by me from the outside hospital shows paced rhythm 2-D echocardiogram per cardio and she notes from June 2018 show EF 55-60%, severe tricuspid regurgitation and severe pulmonary hypertension Assessment: -Acute metabolic encephalopathy likely from renal function, improving -Stage V renal failure from underlying hypertensive nephrosclerosis, started on renal replacement therapy -Acute pulmonary edema from fluid overload, improving -Severe tricuspid regurgitation secondary to severe secondary pulmonary hypertension -Persistent atrial fibrillation with a permanent pacemaker in place -Diabetes mellitus type 2, chronically on insulin -GERD -Hyperlipidemia -Essential hypertension -Primary osteoarthritis -Chronic kidney disease patient's baseline creatinine not known next morbid obesity BMI 44.3 -Chronic gait dysfunction at the baseline uses a walker -Kamar Ortiz is patient's DPOA and caregiver Plan: Patient started hemodialysis. Was hemodialysis today. Overall doing much better. Patient is due to go to rehab. Except in place was not comfortable taking her there. Despite to the pediatric social worker to try to coordinate if see if they can be physician to physician talk about accepting the patient today. Awaiting the same.
[2019-02-13 19:45] LABS: Hemoglobin A1C 5.6 % (4.0-6.0)
[2019-02-13 21:58] LABS: Glucose,Whole Blood 147 mg/dL (75-99)
[2019-02-13] MEDS: EZETIMIBE 10 MG TAB PO SCH (22:31)
[2019-02-13] MEDS: MULTIVITAMINS, THERA 1 EACH TAB PO SCH (22:32)
[2019-02-14 06:57] LABS: Glucose,Whole Blood 119 mg/dL (75-99)
[2019-02-14] MEDS: INSULIN ASPART (NovoLOG) 100 UNIT/ML VIAL SQ SCH ×4 (07:01→21:08)
[2019-02-14] MEDS: METOPROLOL TARTRATE 50 MG TAB PO SCH ×2 (08:24→21:08)
[2019-02-14] MEDS: CHOLECALCIFEROL 1,000 UNIT TAB PO SCH (08:24)
[2019-02-14] MEDS: ASPIRIN 81 MG PO SCH ×2 (08:24→21:08)
[2019-02-14] MEDS: ACETAMINOPHEN TAB 500 MG TAB PO SCH ×2 (08:24→16:55)
[2019-02-14] MEDS: FAMOTIDINE 20 MG TAB PO SCH (08:24)
[2019-02-14] MEDS: INSULIN DETEMIR (LEVEMIR) 100 UNIT/ML SYR SQ SCH (08:25)
[2019-02-14] MEDS: SEVELAMER 800 MG TAB PO SCH ×3 (08:25→21:08)
[2019-02-14] MEDS: FUROSEMIDE 80 MG TAB PO SCH ×2 (08:25→16:55)
--- NOTE | 2019-02-14 09:44 | P.PN ---
Subjective Patient is seen in follow-up for chronic kidney disease. Patient has chronic kidney disease stage V secondary to diabetic kidney disease and cardiorenal syndrome. Patient had a permacath placed February 12 and was started on hemodialysis. Currently seen while undergoing third treatment of hemodialysis. Denies active chest pain or shortness of breath. She has been voiding. She is maintained on po Lasix. Vital signs are stable. General: The patient appeared well nourished and normally developed. HEENT: Head exam is unremarkable. Neck is without jugular venous distension. LUNGS: Lungs are clear to auscultation and percussion. Breath sounds decreased. HEART: Rate and Rhythm are regular. First and second heart sounds normal. No murmurs, rubs or gallops. ABDOMEN: Abdominal exam reveals normal bowel sounds. Non-tender and non- distended. No evidence of peritonitis. EXTREMITITES: 1+ edema. Objective - Vital Signs Vital signs: Vital Signs Temp 97.7 F 02/14/19 07:00 Pulse 69 02/14/19 07:00 Resp 16 02/14/19 07:00 BP 117/77 02/14/19 07:00 Pulse Ox 96 02/14/19 07:00 Intake & Output 02/13/19 02/14/19 02/14/19 18:59 06:59 18:59 Intake Total 118 118 Output Total 1999 -1881 118 Weight 116.5 kg Intake: Oral 118 118 Output: Hemodialysis 1999 Other: Voiding Method Incontinent Incontinent - Labs CBC & Chem 7: 02/11/19 05:51 02/13/19 08:34 Labs: Abnormal Lab Results - Last 24 Hours (Table) 02/13/19 02/13/19 02/13/19 Range/Units 11:59 16:10 21:44 POC Glucose (mg/dL) 143 H 116 H 147 H (75-99) mg/dL 02/14/19 Range/Units 06:45 POC Glucose (mg/dL) 119 H (75-99) mg/dL Assessment and Plan Plan: Assessment: 1. Chronic kidney disease stage V secondary to diabetic kidney disease and cardiorenal syndrome. 2. Diastolic CHF with severe tricuspid regurgitation and pulmonary hypertension. 3. Diabetes mellitus. 4. Hypertension with chronic kidney disease. Controlled. 5. Volume overload. Better with ultrafiltration. 6. Chronic kidney disease mineral bone disease maintained on Renvela. Plan: Maintain oral Lasix 80 mg twice daily. Currently seen while undergoing hemodialysis. She will be maintained on a Saturday schedule. Outpatient dialysis being set up by case management. Plan for rehab upon discharge.
[2019-02-14 11:15] LABS: INR 1.1 (<1.2); Prothrombin Time 11.3 sec (9.0-12.0)
[2019-02-14 11:19] LABS: Glucose,Whole Blood 131 mg/dL (75-99)
[2019-02-14] MEDS: VITAMIN E (DL,TOCOPHERYL ACET) 400 UNIT CAP PO SCH (11:46)
[2019-02-14] MEDS: ASCORBIC ACID 500 MG TAB PO SCH (11:46)
--- NOTE | 2019-02-14 16:59 | P.PN ---
Progress Note - Text Progress Note Date: 02/14/19 Chief Complaint: Fatigue Interval history: This is a very pleasant 73-year-old patient of Dr. talbot. Chronic stable medical conditions include atrial fibrillation with a permanent pacemaker, asthma, questionable CHF, diabetes, DVT, GERD, hyperlipidemia, hypertension, osteoarthritis, chronic kidney disease. Most history is obtained by patient's significant other and caregiver from [facility]. Patient was noted to be increasingly fatigued tired and he was taken to the [facility]. Basic workup was carried out there. Patient's found to have a bun of 18 and creatinine of 4.3. Chest x-ray was unremarkable. Patient herself is rather lethargic but arousable. Patient's appetite has been okay. And a baseline does wear a brief period of recent. Activity has gone down. Edema has been present Admitting diagnosis-acute metabolic nephropathy and acute pulmonary edema. Patient had a hemodialysis catheter placed. Started on hemodialysis Today-stable. Tolerating a diet. No new issues. Getting hemodialysis today. 2 L of be removed.. Review of systems: Was done for constitutional, cardiovascular, GI, pulmonary. relevant finding as above Active Medications Acetaminophen (Tylenol Tab) 500 mg PO [facility] Last Admin: 02/14/19 16:55 Dose: 500 mg Documented by: Acetaminophen (Tylenol Tab) 250 mg PO QAM [facility] Last Admin: 02/14/19 08:24 Dose: 250 mg Documented by: Albuterol Sulfate (Ventolin Nebulized) 2.5 mg INHALATION RT-TID PRN PRN Reason: Shortness Of Breath Ascorbic Acid (Vitamin C) 500 mg PO DAILY@1200 [facility] Last Admin: 02/14/19 11:46 Dose: 500 mg Documented by: Aspirin (Aspirin) 81 mg PO BID [facility] Last Admin: 02/14/19 08:24 Dose: 81 mg Documented by: Cholecalciferol (Vitamin D3 (25 Mcg = 1000 Iu)) 1,000 unit PO DAILY [facility] Last Admin: 02/14/19 08:24 Dose: 1,000 unit Documented by: Ezetimibe (Zetia) 10 mg PO [facility] Last Admin: 02/13/19 22:31 Dose: 10 mg Documented by: Famotidine (Pepcid) 20 mg PO DAILY [facility] Last Admin: 02/14/19 08:24 Dose: 20 mg Documented by: Furosemide (Lasix) 80 mg PO BID@0900,1600 [facility] Last Admin: 02/14/19 16:55 Dose: 80 mg Documented by: Insulin Aspart (Novolog) 0 unit SQ ACHS [facility]; Protocol Last Admin: 02/14/19 16:55 Dose: Not Given Documented by: Insulin Detemir (Levemir) 55 unit SQ DAILY@0700 [facility] Last Admin: 02/14/19 08:25 Dose: 55 unit Documented by: Metoprolol Tartrate (Lopressor) 50 mg PO BID [facility] Last Admin: 02/14/19 08:24 Dose: 50 mg Documented by: Miscellaneous Information (Coumadin Per Pharmacy) 0 each MISCELLANE DIRECTED PRN PRN Reason: ANTICOAG Multivitamins (Theragran) 1 each PO HS [facility] Last Admin: 02/13/19 22:32 Dose: 1 each Documented by: Naloxone HCl (Narcan) 0.2 mg IV Q2M PRN PRN Reason: Opioid Reversal Sevelamer Carbonate (Renvela) 800 mg PO TID [facility] Last Admin: 02/14/19 16:55 Dose: 800 mg Documented by: Vitamin E (Vitamin E) 400 unit PO DAILY@1200 [facility] Last Admin: 02/14/19 11:46 Dose: 400 unit Documented by: Warfarin Sodium (Coumadin) 10 mg PO ONCE@1800 [facility] Stop: 02/14/19 18:01 Last Admin: 02/14/19 16:56 Dose: 10 mg Documented by: Physical examination: VITAL SIGNS: 97.4, 70, 15, 110/63, 94% on 4 L GENERAL: Propped up in bed, getting hemodialyzed. EYES: Pupils equal. Conjunctiva normal. HEENT: External appearance of nose and ears normal, oral cavity grossly normal. NECK: JVD unable to assess; masses not palpable. HEART: Heart sounds are muffled,; some edema . LUNGS: Respiratory rate normal; decreased breath sounds. ABDOMEN: Soft, nontender, liver spleen not palpable, no masses palpable. PSYCH: Answer questions appropriately. INVESTIGATIONS, reviewed in the clinical context: Accu-Cheks 119, 131 Blood work from the outside hospital shows Sodium 133 potassium 4.8 bun 18 creatinine 4.3 AST and ALTs both normal. Hemoglobin 11.4 white count 7.3 platelets 280 Chest x-ray film personally reviewed by me shows pulmonary edema and pleural effusion EKG tracing personally reviewed by me from the outside hospital shows paced rhythm 2-D echocardiogram per cardio and she notes from June 2018 show EF 55-60%, severe tricuspid regurgitation and severe pulmonary hypertension Assessment: -Acute metabolic encephalopathy likely from renal function, much improved -Stage V renal failure from underlying hypertensive nephrosclerosis, started on renal replacement therapy -Acute pulmonary edema from fluid overload, improved -Severe tricuspid regurgitation secondary to severe secondary pulmonary hypertension -Persistent atrial fibrillation with a permanent pacemaker in place -Diabetes mellitus type 2, chronically on insulin -GERD -Hyperlipidemia -Essential hypertension -Primary osteoarthritis -Chronic kidney disease patient's baseline creatinine not known next morbid obesity BMI 44.3 -Chronic gait dysfunction at the baseline uses a walker -Kamar Ortiz is patient's DPOA and caregiver Plan: Continue current medication treatment plan. Getting scheduled hemodialysis. Patient told to get transferred to [facility]CF on Saturday. After hemodialysis that day.
[2019-02-14 17:03] LABS: Glucose,Whole Blood 129 mg/dL (75-99)
[2019-02-14] MEDS ORDERED: WARFARIN 10 MG TAB PO ONE (18:00)
[2019-02-14 20:30] LABS: Glucose,Whole Blood 134 mg/dL (75-99)
[2019-02-14] MEDS: MULTIVITAMINS, THERA 1 EACH TAB PO SCH (21:08)
[2019-02-14] MEDS: EZETIMIBE 10 MG TAB PO SCH (21:08)
[2019-02-15 06:54] LABS: Glucose,Whole Blood 102 mg/dL (75-99)
[2019-02-15] MEDS: INSULIN ASPART (NovoLOG) 100 UNIT/ML VIAL SQ SCH ×4 (07:10→21:30)
[2019-02-15 07:52] LABS: INR 1.4 (<1.2); Prothrombin Time 13.9 sec (9.0-12.0)
[2019-02-15] MEDS: INSULIN DETEMIR (LEVEMIR) 100 UNIT/ML SYR SQ SCH (08:25)
[2019-02-15] MEDS: ACETAMINOPHEN TAB 500 MG TAB PO SCH ×2 (08:37→21:29)
[2019-02-15] MEDS: SEVELAMER 800 MG TAB PO SCH ×3 (08:39→21:29)
[2019-02-15] MEDS: METOPROLOL TARTRATE 50 MG TAB PO SCH ×2 (08:39→21:30)
[2019-02-15] MEDS: CHOLECALCIFEROL 1,000 UNIT TAB PO SCH (08:39)
[2019-02-15] MEDS: ASPIRIN 81 MG PO SCH ×2 (08:39→21:30)
[2019-02-15] MEDS: FUROSEMIDE 80 MG TAB PO SCH ×2 (08:39→16:08)
[2019-02-15] MEDS: FAMOTIDINE 20 MG TAB PO SCH (08:40)
--- NOTE | 2019-02-15 10:30 | P.PN ---
Subjective Patient is seen in follow-up for chronic kidney disease. Patient has chronic kidney disease stage V secondary to diabetic kidney disease and cardiorenal syndrome. Patient had a permacath placed February 12 and was started on hemodialysis. Denies active chest pain or shortness of breath. She has been voiding. She is maintained on po Lasix. No active complaints at this time. She has been tolerating dialysis well. Vital signs are stable. General: The patient appeared well nourished and normally developed. HEENT: Head exam is unremarkable. Neck is without jugular venous distension. LUNGS: Lungs are clear to auscultation and percussion. Breath sounds decreased. HEART: Rate and Rhythm are regular. First and second heart sounds normal. No m urmurs, rubs or gallops. ABDOMEN: Abdominal exam reveals normal bowel sounds. Non-tender and non-di stended. Obese. EXTREMITITES: 1+ edema. Objective - Vital Signs Vital signs: Vital Signs Temp 97.8 F 02/15/19 07:00 Pulse 88 02/15/19 08:51 Resp 15 02/15/19 07:00 BP 134/82 02/15/19 07:00 Pulse Ox 94 L 02/15/19 07:00 Intake & Output 02/14/19 02/15/19 02/15/19 18:59 06:59 18:59 Intake Total 418 260 Output Total 1999 Balance -1582 260 Intake: Oral 418 260 Output: Hemodialysis 1999 Other: Voiding Method Incontinent Incontinent Incontinent - Labs CBC & Chem 7: 02/11/19 05:51 02/13/19 08:34 Labs: Abnormal Lab Results - Last 24 Hours (Table) 02/14/19 02/14/19 02/14/19 Range/Units 11:08 16:51 20:18 PT (9.0-12.0) sec INR (<1.2) POC Glucose (mg/dL) 131 H 129 H 134 H (75-99) mg/dL 02/15/19 02/15/19 Range/Units 06:47 06:52 PT 13.9 H (9.0-12.0) sec INR 1.4 H (<1.2) POC Glucose (mg/dL) 102 H (75-99) mg/dL Assessment and Plan Plan: Assessment: 1. Chronic kidney disease stage V secondary to diabetic kidney disease and cardiorenal syndrome. Now progressed to end-stage renal disease. Maintain on hemodialysis on a Saturday schedule. 2. Diastolic CHF with severe tricuspid regurgitation and pulmonary hypertension. 3. Diabetes mellitus. 4. Hypertension with chronic kidney disease. Controlled. 5. Volume overload. Better with ultrafiltration. 6. Chronic kidney disease mineral bone disease maintained on Renvela. Plan: Hemodialysis on Saturday. Maintain oral Lasix 80 mg twice daily. Outpatient dialysis being set up by case management. Plan for rehab upon discharge.
[2019-02-15 11:32] LABS: Glucose,Whole Blood 140 mg/dL (75-99)
[2019-02-15] MEDS: ASCORBIC ACID 500 MG TAB PO SCH (11:43)
[2019-02-15] MEDS: VITAMIN E (DL,TOCOPHERYL ACET) 400 UNIT CAP PO SCH (11:43)
--- NOTE | 2019-02-15 15:27 | P.PN ---
Progress Note - Text Progress Note Date: 02/15/19 Chief Complaint: Fatigue Interval history: This is a very pleasant 73-year-old patient of Dr. talbot. Chronic stable medical conditions include atrial fibrillation with a permanent pacemaker, asthma, questionable CHF, diabetes, DVT, GERD, hyperlipidemia, hypertension, osteoarthritis, chronic kidney disease. Most history is obtained by patient's significant other and caregiver from [place] [facility]. Patient was noted to be increasingly fatigued tired and he was taken to the [facility]. Basic workup was carried out there. Patient's found to have a bun of 18 and creatinine of 4.3. Chest x-ray was unremarkable. Patient herself is rather lethargic but arousable. Patient's appetite has been okay. And a baseline does wear a brief period of recent. Activity has gone down. Edema has been present Admitting diagnosis-acute metabolic nephropathy and acute pulmonary edema. Patient had a hemodialysis catheter placed. Started on hemodialysis Today-laying in bed. Doing well. Tolerating a diet. Awaiting to go to the [facility]. Review of systems: Was done for constitutional, cardiovascular, GI, pulmonary. relevant finding as above Active Medications Acetaminophen (Tylenol Tab) 500 mg PO [facility] Last Admin: 02/14/19 16:55 Dose: 500 mg Documented by: Acetaminophen (Tylenol Tab) 250 mg PO QAM [facility] Last Admin: 02/15/19 08:37 Dose: 250 mg Documented by: Albuterol Sulfate (Ventolin Nebulized) 2.5 mg INHALATION RT-TID PRN PRN Reason: Shortness Of Breath Last Admin: 02/15/19 08:40 Dose: 2.5 mg Documented by: Ascorbic Acid (Vitamin C) 500 mg PO DAILY@1200 [facility] Last Admin: 02/15/19 11:43 Dose: 500 mg Documented by: Aspirin (Aspirin) 81 mg PO BID [facility] Last Admin: 02/15/19 08:39 Dose: 81 mg Documented by: Cholecalciferol (Vitamin D3 (25 Mcg = 1000 Iu)) 1,000 unit PO DAILY [facility] Last Admin: 02/15/19 08:39 Dose: 1,000 unit Documented by: Ezetimibe (Zetia) 10 mg PO [facility] Last Admin: 02/14/19 21:08 Dose: 10 mg Documented by: Famotidine (Pepcid) 20 mg PO DAILY [facility] Last Admin: 02/15/19 08:40 Dose: 20 mg Documented by: Furosemide (Lasix) 80 mg PO BID@0900,1600 [facility] Last Admin: 02/15/19 08:39 Dose: 80 mg Documented by: Insulin Aspart (Novolog) 0 unit SQ ACHS [facility]; Protocol Last Admin: 02/15/19 11:41 Dose: 1 unit Documented by: Insulin Detemir (Levemir) 55 unit SQ DAILY@0700 [facility] Last Admin: 02/15/19 08:25 Dose: 55 unit Documented by: Metoprolol Tartrate (Lopressor) 50 mg PO BID [facility] Last Admin: 02/15/19 08:39 Dose: 50 mg Documented by: Miscellaneous Information (Coumadin Per Pharmacy) 0 each MISCELLANE DIRECTED PRN PRN Reason: ANTICOAG Multivitamins (Theragran) 1 each PO HS [facility] Last Admin: 02/14/19 21:08 Dose: 1 each Documented by: Naloxone HCl (Narcan) 0.2 mg IV Q2M PRN PRN Reason: Opioid Reversal Sevelamer Carbonate (Renvela) 800 mg PO TID [facility] Last Admin: 02/15/19 08:39 Dose: 800 mg Documented by: Vitamin E (Vitamin E) 400 unit PO DAILY@1200 [facility] Last Admin: 02/15/19 11:43 Dose: 400 unit Documented by: Warfarin Sodium (Coumadin) 10 mg PO ONCE@1800 ONE Stop: 02/15/19 18:01 Physical examination: VITAL SIGNS: 98, 70, 15, 121/77, 91% on 4 L GENERAL: Laying in bed, comfortable. EYES: Pupils equal. Conjunctiva normal. HEENT: External appearance of nose and ears normal, oral cavity grossly normal. NECK: JVD unable to assess; masses not palpable. HEART: Heart sounds are muffled,; some edema . LUNGS: Respiratory rate normal; decreased breath sounds. ABDOMEN: Soft, nontender, liver spleen not palpable, no masses palpable. PSYCH: Answer questions appropriately. INVESTIGATIONS, reviewed in the clinical context: INR 1.4 Accu-Cheks 102, 140 Blood work from the outside hospital shows Sodium 133 potassium 4.8 bun 18 creatinine 4.3 AST and ALTs both normal. Hemoglobin 11.4 white count 7.3 platelets 280 Chest x-ray film personally reviewed by me shows pulmonary edema and pleural effusion EKG tracing personally reviewed by me from the outside hospital shows paced rhythm 2-D echocardiogram per cardio and she notes from June 2018 show EF 55-60%, severe tricuspid regurgitation and severe pulmonary hypertension Assessment: -Acute metabolic encephalopathy likely from renal function, much improved -Stage V renal failure from underlying hypertensive nephrosclerosis, started on renal replacement therapy -Acute pulmonary edema from fluid overload, improved -Severe tricuspid regurgitation secondary to severe secondary pulmonary hypertension -Persistent atrial fibrillation with a permanent pacemaker in place -Diabetes mellitus type 2, chronically on insulin -GERD -Hyperlipidemia -Essential hypertension -Primary osteoarthritis -Chronic kidney disease patient's baseline creatinine not known next morbid obesity BMI 44.3 -Chronic gait dysfunction at the baseline uses a walker -Kamar Ortiz is patient's DPOA and caregiver Plan: Patient stable. Doing well. Patient can be transferred to the ECF after her next hemodialysis. remelt worker case management specialist is involved.
[2019-02-15 16:11] LABS: Glucose,Whole Blood 157 mg/dL (75-99)
[2019-02-15] MEDS ORDERED: WARFARIN 10 MG TAB PO ONE (18:00)
[2019-02-15 20:11] LABS: Glucose,Whole Blood 127 mg/dL (75-99)
[2019-02-15] MEDS: MULTIVITAMINS, THERA 1 EACH TAB PO SCH (21:29)
[2019-02-15] MEDS: EZETIMIBE 10 MG TAB PO SCH (21:30)
[2019-02-16 07:08] LABS: Glucose,Whole Blood 97 mg/dL (75-99)
[2019-02-16] MEDS: INSULIN ASPART (NovoLOG) 100 UNIT/ML VIAL SQ SCH ×4 (07:51→21:50)
[2019-02-16 08:00] LABS: INR 2.5 (<1.2); Prothrombin Time 24.2 sec (9.0-12.0)
[2019-02-16] MEDS: INSULIN DETEMIR (LEVEMIR) 100 UNIT/ML SYR SQ SCH (08:08)
[2019-02-16] MEDS: ACETAMINOPHEN TAB 500 MG TAB PO SCH ×2 (08:09→21:50)
[2019-02-16] MEDS: FAMOTIDINE 20 MG TAB PO SCH (08:10)
[2019-02-16] MEDS: VITAMIN E (DL,TOCOPHERYL ACET) 400 UNIT CAP PO SCH (08:10)
[2019-02-16] MEDS: ASCORBIC ACID 500 MG TAB PO SCH (08:10)
[2019-02-16] MEDS: METOPROLOL TARTRATE 50 MG TAB PO SCH ×2 (08:11→21:50)
[2019-02-16] MEDS: CHOLECALCIFEROL 1,000 UNIT TAB PO SCH (08:11)
[2019-02-16] MEDS: SEVELAMER 800 MG TAB PO SCH ×3 (08:11→21:49)
[2019-02-16] MEDS: FUROSEMIDE 80 MG TAB PO SCH ×2 (08:11→17:22)
[2019-02-16] MEDS: ASPIRIN 81 MG PO SCH ×2 (08:11→21:49)
--- NOTE | 2019-02-16 09:25 | P.PN ---
Subjective Patient is seen in follow-up for chronic kidney disease. Patient has chronic kidney disease stage V secondary to diabetic kidney disease and cardiorenal syndrome. Patient had a permacath placed February 12 and was started on hemodialysis. Denies active chest pain or shortness of breath. She has been voiding. She is maintained on po Lasix. No active complaints at this time. She has been tolerating dialysis well. Awaits discharge to rehab. Vital signs are stable. General: The patient appeared well nourished and normally developed. HEENT: Head exam is unremarkable. Neck is without jugular venous distension. LUNGS: Lungs are clear to auscultation and percussion. Breath sounds decreased. HEART: Rate and Rhythm are regular. First and second heart sounds normal. No murmurs, rubs or gallops. ABDOMEN: Abdominal exam reveals normal bowel sounds. Non-tender and non- distended. Obese. EXTREMITITES: 1+ edema. Objective - Vital Signs Vital signs: Vital Signs Temp 97.7 F 02/16/19 07:20 Pulse 70 02/16/19 07:20 Resp 18 02/16/19 07:20 BP 111/64 02/16/19 07:20 Pulse Ox 97 02/16/19 07:20 Intake & Output 02/15/19 02/16/19 02/16/19 18:59 06:59 18:59 Intake Total 496 240 360 Output Total 700 Balance 496 -460 360 Weight 101.5 kg Intake: Oral 496 240 360 Output: Urine 700 Other: Voiding Method Incontinent Incontinent Incontinent - Labs CBC & Chem 7: 02/11/19 05:51 02/13/19 08:34 Labs: Abnormal Lab Results - Last 24 Hours (Table) 02/15/19 02/15/19 02/15/19 Range/Units 11:28 16:09 20:09 PT (9.0-12.0) sec INR (<1.2) POC Glucose (mg/dL) 140 H 157 H 127 H (75-99) mg/dL 02/16/19 Range/Units 07:30 PT 24.2 H (9.0-12.0) sec INR 2.5 H (<1.2) POC Glucose (mg/dL) (75-99) mg/dL Assessment and Plan Plan: Assessment: 1. Chronic kidney disease stage V secondary to diabetic kidney disease and cardiorenal syndrome. Now progressed to end-stage renal disease. Maintain on hemodialysis on a Saturday schedule. 2. Diastolic CHF with severe tricuspid regurgitation and pulmonary hypertension. 3. Diabetes mellitus. 4. Hypertension with chronic kidney disease. Controlled. 5. Volume overload. Better with ultrafiltration. 6. Chronic kidney disease mineral bone disease maintained on Renvela. Plan: Hemodialysis on Saturday. Maintain oral Lasix 80 mg twice daily. Outpatient dialysis being set up by case management. Plan for rehab upon discharge.
[2019-02-16 11:42] LABS: Glucose,Whole Blood 127 mg/dL (75-99)
--- NOTE | 2019-02-16 13:40 | PN ---
PROGRESS NOTE DATE OF SERVICE: 02/16/2019 This is a 73-year-old woman who was admitted with CHF acute exacerbation also receiving hemodialysis through a PermCath through the right neck. Dr. Avitia is following the patient in the outpatient setting. The patient also has some change in mental status and metabolic encephalopathy, possibly multifactorial. The patient also had acute pulmonary edema from fluid overload. The most recent chest x-ray which I personally reviewed on 02/12/2019 showed some cardiomegaly and pulmonary congestion also. The patient is still confused and appears tired. PT, OT evaluating the patient for ECF rehab. No chest pain or palpitation. PAST MEDICAL HISTORY: Reviewed. REVIEW OF SYSTEMS: CARDIOVASCULAR SYSTEM: As mentioned earlier. RESPIRATORY SYSTEM: As mentioned earlier. GI: No nausea. : No dysuria. NERVOUS SYSTEM: As mentioned earlier. CURRENT MEDICATIONS: Current medications are reviewed and include: 1. Tylenol 500 mg q.6 p.r.n. 2. Ventolin 2.5 t.i.d. p.r.n. 3. Vitamin C 500 mg p.o. daily. 4. Aspirin 81 mg p.o. b.i.d. 5. Vitamin D3, 1000 daily. 6. Zetia 10 mg q.h.s. 7. Pepcid 20 mg p.o. daily. 8. Lasix 80 mg p.o. b.i.d. 9. NovoLog a.c. and at bedtime. 10.Levemir 55 units subcu daily. 11.Lopressor 50 mg p.o. b.i.d. 12.Multivitamins one p.o. daily. 13.Narcan 0.2 q.2 p.r.n. 14.Renvela 800 mg p.o. t.i.d. 15.Vitamin E 400 p.o. daily. PHYSICAL EXAMINATION: Patient is alert and oriented x3. Pulse 70, blood pressure 111/64, respiration 18, temperature 97.7, pulse ox 97% on 4 L. HEENT: Conjunctivae normal. NECK: No jugular venous distention. CARDIOVASCULAR: S1, S2 muffled. RESPIRATORY: Breath sounds diminished at the bases. Bilateral scattered rhonchi and crackles. ABDOMEN: Soft, nontender. LEGS: Minimal edema. NERVOUS SYSTEM: Diffusely weak. LABS: Labs are at this time shows INR is 2.5 and creatinine is 3.55. ASSESSMENT: 1. Change in mental status, acute metabolic encephalopathy from renal failure. 2. Stage 5 renal failure from underlying hypertensive nephrosclerosis on hemodialysis. 3. Acute pulmonary edema and fluid overload, improved. 4. Severe tricuspid regurgitation secondary to severe secondary pulmonary hypertension. 5. Persistent atrial fibrillation with permanent pacemaker. 6. Diabetes mellitus type 2, chronically on insulin. 7. Gastroesophageal reflux disease. 8. Hyperlipidemia. 9. Hypertension. 10.Degenerative joint disease. 11.Chronic kidney disease. 12.Chronic gait dysfunction. 13.Obesity with body mass index of 39.6. 14.Coumadin monitoring. RECOMMENDATIONS AND DISCUSSION: In this 73-year-old woman who presented with multiple complex medical issues, we will monitor the patient closely. Continue the current medications. Continue with hemodialysis. I would also recommend repeat labs. Monitor PT, INR closely. Cardiology is also dosing the patient on Coumadin. Otherwise PT, OT evaluation, possible ECF rehab. Discussed with staff. Discussed with the patient. Further recommendations to follow. Overall prognosis guarded because of multiple complex medical issues. MMODL / IJN: [id number] / BELEN
--- NOTE | 2019-02-16 14:25 | XR ---
EXAMINATION TYPE: XR chest 1V portable DATE OF EXAM: 02/16/2019 HISTORY: Shortness of breath. COMPARISON: 02/12/2019 TECHNIQUE: Single view of the chest is submitted. FINDINGS: Demonstrated are scattered senescent parenchymal change. Improved pulmonary venous congestion. Persistent patchy density right lung base. Central venous line and pacer device unchanged in position. The heart is stable. Hilar and mediastinal structures are within normal limits. Degenerative changes are seen of the dorsal spine. IMPRESSION: 1. Improved pulmonary venous congestion. Persistent patchy density right lung base.
[2019-02-16 16:45] LABS: Glucose,Whole Blood 159 mg/dL (75-99)
[2019-02-16 16:56] LABS: Glucose,Whole Blood 157 mg/dL (75-99)
[2019-02-16] MEDS ORDERED: WARFARIN 5 MG TAB PO ONE (18:00)
[2019-02-16 20:40] LABS: Glucose,Whole Blood 132 mg/dL (75-99)
[2019-02-16] MEDS: MULTIVITAMINS, THERA 1 EACH TAB PO SCH (21:50)
[2019-02-17] MEDS: EZETIMIBE 10 MG TAB PO SCH ×2 (01:16→21:18)
[2019-02-17 07:07] LABS: Glucose,Whole Blood 64 mg/dL (75-99)
[2019-02-17 07:07] LABS: Glucose,Whole Blood 106 mg/dL (75-99)
[2019-02-17 07:29] LABS: INR 4.6 (<1.2); Prothrombin Time 44.5 sec (9.0-12.0)
[2019-02-17] MEDS: INSULIN ASPART (NovoLOG) 100 UNIT/ML VIAL SQ SCH ×4 (07:30→22:48)
[2019-02-17 07:39] LABS: Calcium 10.4 mg/dL (8.4-10.2); Potassium 4.5 mmol/L (3.5-5.1)
[2019-02-17 08:35] LABS: Anisocytosis Slight; Basophils # (A) 0.1 k/uL (0-0.2); Basophils % (A) 1 %; Eosinophils # (A) 0.2 k/uL (0-0.7); Eosinophils % (A) 4 %; HCT 36.3 % (34.0-46.0); HGB 10.8 gm/dL (11.4-16.0); Hypochromasia Marked; Lymphocytes # (A) 0.7 k/uL (1.0-4.8); Lymphocytes % (A) 10 %; MCHC 29.9 g/dL (31.0-37.0); MCV 93.6 fL (80.0-100.0); Monocytes # (A) 0.9 k/uL (0-1.0); Monocytes % (A) 14 %; Neutrophils # (A) 4.4 k/uL (1.3-7.7); Neutrophils % (A) 67 %; Platelet Count 235 k/uL (150-450); RBC 3.88 m/uL (3.80-5.40); RDW 17.3 % (11.5-15.5); WBC 6.6 k/uL (3.8-10.6)
[2019-02-17] MEDS: FUROSEMIDE 80 MG TAB PO SCH ×2 (09:53→16:04)
[2019-02-17] MEDS: INSULIN DETEMIR (LEVEMIR) 100 UNIT/ML SYR SQ SCH (09:53)
[2019-02-17] MEDS: SEVELAMER 800 MG TAB PO SCH ×3 (09:53→21:19)
[2019-02-17] MEDS: ASPIRIN 81 MG PO SCH ×2 (09:54→21:18)
[2019-02-17] MEDS: ACETAMINOPHEN TAB 500 MG TAB PO SCH ×2 (09:54→21:18)
[2019-02-17] MEDS: FAMOTIDINE 20 MG TAB PO SCH (09:55)
[2019-02-17] MEDS: METOPROLOL TARTRATE 50 MG TAB PO SCH ×2 (09:55→21:18)
[2019-02-17] MEDS: CHOLECALCIFEROL 1,000 UNIT TAB PO SCH (09:55)
[2019-02-17] MEDS: VITAMIN E (DL,TOCOPHERYL ACET) 400 UNIT CAP PO SCH (11:44)
[2019-02-17] MEDS: ASCORBIC ACID 500 MG TAB PO SCH (11:44)
[2019-02-17 11:51] LABS: Glucose,Whole Blood 136 mg/dL (75-99)
--- NOTE | 2019-02-17 12:30 | P.PN ---
Subjective Patient is seen in follow-up for chronic kidney disease. Patient has chronic kidney disease stage V secondary to diabetic kidney disease and cardiorenal syndrome. Patient had a permacath placed February 12 and was started on hemodialysis. Denies active chest pain or shortness of breath. She has been voiding. She is maintained on po Lasix. No active complaints at this time. She has been tolerating dialysis well. Awaits discharge to rehab. Vital signs are stable. General: The patient appeared well nourished and normally developed. HEENT: Head exam is unremarkable. Neck is without jugular venous distension. LUNGS: Lungs are clear to auscultation and percussion. Breath sounds decreased. HEART: Rate and Rhythm are regular. First and second heart sounds normal. No murmurs, rubs or gallops. ABDOMEN: Abdominal exam reveals normal bowel sounds. Non-tender and non- distended. Obese. EXTREMITITES: 1+ edema. Objective - Vital Signs Vital signs: Vital Signs Temp 97.7 F 02/17/19 09:48 Pulse 70 02/17/19 10:22 Resp 21 02/17/19 10:22 BP 103/63 02/17/19 09:48 Pulse Ox 96 02/17/19 07:00 Intake & Output 02/16/19 02/17/19 02/17/19 18:59 06:59 18:59 Intake Total 598 180 Output Total 500 1999 Balance 98 -1820 Intake: Oral 598 180 Output: Urine 500 Hemodialysis 2000 Other: Voiding Method Incontinent Incontinent Incontinent - Labs CBC & Chem 7: 02/17/19 07:00 02/17/19 07:00 Labs: Abnormal Lab Results - Last 24 Hours (Table) 02/16/19 02/16/19 02/16/19 Range/Units 16:43 16:55 20:39 Hgb (11.4-16.0) gm/dL MCHC (31.0-37.0) g/dL RDW (11.5-15.5) % Lymphocytes # (1.0-4.8) k/uL PT (9.0-12.0) sec INR (<1.2) BUN (7-17) mg/dL Creatinine (0.52-1.04) mg/dL Glucose (74-99) mg/dL POC Glucose (mg/dL) 159 H 157 H 132 H (75-99) mg/dL Calcium (8.4-10.2) mg/dL 02/17/19 02/17/19 02/17/19 Range/Units 07:00 07:00 07:00 Hgb 10.8 L (11.4-16.0) gm/dL MCHC 29.9 L (31.0-37.0) g/dL RDW 17.3 H (11.5-15.5) % Lymphocytes # 0.7 L (1.0-4.8) k/uL PT 44.5 H (9.0-12.0) sec INR 4.6 H (<1.2) BUN 59 H (7-17) mg/dL Creatinine 4.01 H (0.52-1.04) mg/dL Glucose 102 H (74-99) mg/dL POC Glucose (mg/dL) (75-99) mg/dL Calcium 10.4 H (8.4-10.2) mg/dL 02/17/19 02/17/19 02/17/19 Range/Units 07:03 07:05 11:49 Hgb (11.4-16.0) gm/dL MCHC (31.0-37.0) g/dL RDW (11.5-15.5) % Lymphocytes # (1.0-4.8) k/uL PT (9.0-12.0) sec INR (<1.2) BUN (7-17) mg/dL Creatinine (0.52-1.04) mg/dL Glucose (74-99) mg/dL POC Glucose (mg/dL) 64 L 106 H 136 H (75-99) mg/dL Calcium (8.4-10.2) mg/dL Assessment and Plan Plan: Assessment: 1. Chronic kidney disease stage V secondary to diabetic kidney disease and cardiorenal syndrome. Now progressed to end-stage renal disease. Maintain on hemodialysis on a Saturday schedule. 2. Diastolic CHF with severe tricuspid regurgitation and pulmonary hypertension. 3. Diabetes mellitus. 4. Hypertension with chronic kidney disease. Controlled. 5. Volume overload. Better with ultrafiltration. 6. Chronic kidney disease mineral bone disease maintained on Renvela. 7. Hypercalcemia secondary to vitamin D. Plan: Completed hemodialysis today. Next treatment on . Maintain oral Lasix 80 mg twice daily. Outpatient dialysis has been set up by case management. Plan for rehab upon discharge. Discontinue vitamin D.
[2019-02-17 12:49] LABS: Glucose,Whole Blood 144 mg/dL (75-99)
[2019-02-17 14:57] VITALS: PULSE 70
--- NOTE | 2019-02-17 15:17 | PN ---
PROGRESS NOTE DATE OF SERVICE: 02/17/2019. This is a 73-year-old woman who was admitted with CHF exacerbation, also received hemodialysis. The patient was slated to go to rehab, but apparently patient had a fall and patient had suffered some contusion in the gluteal region. The PT, INR is also elevated. PT, OT evaluated the patient closely. The most recent chest x-ray which was personally reviewed by me showed significant improvement of venous congestion, patchy density is also still noted. PAST MEDICAL HISTORY: Reviewed. REVIEW OF SYSTEMS: CARDIOVASCULAR SYSTEM: No angina. RESPIRATION: As mentioned earlier. GI: No nausea. : No dysuria. NERVOUS SYSTEM: No numbness or weakness. ALLERGY/IMMUNOLOGY: No asthma. MUSCULOSKELETAL: As mentioned earlier. CURRENT MEDICATIONS: Reviewed include: 1. Tylenol 500 mg p.r.n. 2. Ventolin 2.5 t.i.d. p.r.n. 3. Aspirin 81 mg p.o. b.i.d. 4. Zetia 10 mg q.h.s. 5. Pepcid 20 mg daily. 6. Lasix 80 mg p.o. b.i.d. 7. NovoLog a.c. and at bedtime. 8. Levemir 55 units daily. 9. Lopressor 50 mg p.o. b.i.d. 10.Multivitamin 1 p.o. daily. 11.Narcan 0.2 q.2 p.r.n. 12.Renvela 800 mg p.o. t.i.d. 13.Coumadin per protocol. PHYSICAL EXAM: Patient is alert, oriented x3. Pulse is 69, blood pressure 103/65, respirations 16, temperature 97.7, pulse ox 96% on 4 L. HEENT: Conjunctivae normal. NECK: No jugular venous distension. CARDIAC: S1, S2, muffled. RESPIRATION: Breath sounds diminished at the bases, a few scattered rhonchi, no crackles. ABDOMEN: Soft, obese, nontender. LEGS: No edema. No swelling. NERVOUS SYSTEM: Mild diffuse weakness. LYMPHATICS: No lymph node enlargement in the neck or axillae. LABS: WBC 6.3, hemoglobin 10.8, INR 4.6, creatinine is 4.01, calcium is 10.4. ASSESSMENT: 1. Change in mental status, acute metabolic encephalopathy from renal failure, multifactorial. 2. Stage 5 renal failure from underlying hypertensive nephrosclerosis, on hemodialysis. 3. Acute pulmonary edema and fluid overload, improved. 4. Severe tricuspid regurgitation secondary to severe secondary pulmonary hypertension. 5. Persistent atrial fibrillation with permanent pacemaker. 6. Diabetes mellitus type 2, chronically on insulin. 7. Gastroesophageal reflux disease. 8. Hypertension. 9. Hyperlipidemia. 10.History of degenerative joint disease. 11.Chronic kidney disease. 12.Chronic gait dysfunction. 13.Obesity with body mass index of 39.6. 14.Coumadin monitoring. RECOMMENDATION: Recommend to continue with current medications with monitoring and symptomatic treatment. At this time I recommend hold the Coumadin today. Monitor PT, INR, and PT, OT evaluation although transfer to ECF today and will order repeat labs tomorrow and continue to monitor. Also, will also repeat PT, INR tonight also. Guarded prognosis because of multiple complex medical issues. Further recommendations to follow. See orders for details. MMODL / IJN: [id number] /
[2019-02-17 16:48] LABS: Glucose,Whole Blood 110 mg/dL (75-99)
[2019-02-17] MEDS ORDERED: WARFARIN 0.5 MG TAB PO ONE (18:00)
[2019-02-17 20:20] LABS: Glucose,Whole Blood 133 mg/dL (75-99)
[2019-02-17 21:04] LABS: Prothrombin Time 53.6 sec (9.0-12.0)
[2019-02-17 21:10] LABS: INR 5.6 (<1.2)
[2019-02-17] MEDS ORDERED: PHYTONADIONE ORAL 5 MG/5 ML ORAL.SYRG PO STA (21:15)
[2019-02-17] MEDS: MULTIVITAMINS, THERA 1 EACH TAB PO SCH (21:19)
[2019-02-18 06:48] VITALS: BP 117/72; RESP 15; TEMP 98.6
[2019-02-18 07:24] LABS: Glucose,Whole Blood 108 mg/dL (75-99)
[2019-02-18] MEDS: INSULIN ASPART (NovoLOG) 100 UNIT/ML VIAL SQ SCH ×2 (07:32→12:19)
[2019-02-18] MEDS: INSULIN DETEMIR (LEVEMIR) 100 UNIT/ML SYR SQ SCH (07:34)
[2019-02-18 08:38] LABS: Anisocytosis Slight; Basophils # (A) 0.1 k/uL (0-0.2); Basophils % (A) 1 %; Eosinophils # (A) 0.3 k/uL (0-0.7); Eosinophils % (A) 4 %; HCT 37.8 % (34.0-46.0); HGB 11.4 gm/dL (11.4-16.0); Hypochromasia Marked; Lymphocytes # (A) 0.7 k/uL (1.0-4.8); Lymphocytes % (A) 10 %; MCH 28.6 pg (25.0-35.0); MCHC 30.3 g/dL (31.0-37.0); MCV 94.4 fL (80.0-100.0); Mean Platelet Volume 7.4; Monocytes % (A) 13 %; Neutrophils # (A) 4.9 k/uL (1.3-7.7); Neutrophils % (A) 68 %; Platelet Count 209 k/uL (150-450); RBC 4.01 m/uL (3.80-5.40); RDW 17.6 % (11.5-15.5); WBC 7.2 k/uL (3.8-10.6)
[2019-02-18 08:41] LABS: Calcium 10.1 mg/dL (8.4-10.2); Potassium 4.6 mmol/L (3.5-5.1)
--- NOTE | 2019-02-18 10:06 | P.PN ---
Subjective Patient is seen in follow-up for chronic kidney disease. Patient has chronic kidney disease stage V secondary to diabetic kidney disease and cardiorenal syndrome. Patient had a permacath placed February 12 and was started on hemodialysis. Denies active chest pain or shortness of breath. She has been voiding. She is maintained on po Lasix. No active complaints at this time. She has been tolerating dialysis well. Awaits discharge to rehab. H emodynamically stable. Vital signs are stable. General: The patient appeared well nourished and normally developed. HEENT: Head exam is unremarkable. Neck is without jugular venous distension. LUNGS: Lungs are clear to auscultation and percussion. Breath sounds decreased. HEART: Rate and Rhythm are regular. First and second heart sounds normal. No murmurs, rubs or gallops. ABDOMEN: Abdominal exam reveals normal bowel sounds. Non-tender and non- distended. Obese. EXTREMITITES: Trace edema. Objective - Vital Signs Vital signs: Vital Signs Temp 98.6 F 02/18/19 06:46 Pulse 70 02/18/19 08:00 Resp 15 02/18/19 08:00 BP 117/72 02/18/19 06:46 Pulse Ox 96 02/18/19 06:46 Intake & Output 02/17/19 02/18/19 02/18/19 18:59 06:59 18:59 Intake Total 200 Output Total 2000 Balance -1800 Intake: Oral 200 Output: Hemodialysis 1999 Other: Voiding Method Bedpan Bedpan Incontinent Diaper Diaper Incontinent Incontinent - Labs CBC & Chem 7: 02/18/19 07:56 02/18/19 07:56 Labs: Abnormal Lab Results - Last 24 Hours (Table) 02/17/19 02/17/19 02/17/19 Range/Units 11:49 12:37 16:46 MCHC (31.0-37.0) g/dL RDW (11.5-15.5) % Lymphocytes # (1.0-4.8) k/uL PT (9.0-12.0) sec INR (<1.2) Sodium (137-145) mmol/L BUN (7-17) mg/dL Creatinine (0.52-1.04) mg/dL Glucose (74-99) mg/dL POC Glucose (mg/dL) 136 H 144 H 110 H (75-99) mg/dL 02/17/19 02/17/19 02/18/19 Range/Units 20:15 20:18 07:11 MCHC (31.0-37.0) g/dL RDW (11.5-15.5) % Lymphocytes # (1.0-4.8) k/uL PT 53.6 H (9.0-12.0) sec INR 5.6 H* (<1.2) Sodium (137-145) mmol/L BUN (7-17) mg/dL Creatinine (0.52-1.04) mg/dL Glucose (74-99) mg/dL POC Glucose (mg/dL) 133 H 108 H (75-99) mg/dL 02/18/19 02/18/19 02/18/19 Range/Units 07:56 07:56 07:56 MCHC 30.3 L (31.0-37.0) g/dL RDW 17.6 H (11.5-15.5) % Lymphocytes # 0.7 L (1.0-4.8) k/uL PT 20.0 H (9.0-12.0) sec INR 2.0 H (<1.2) Sodium 135 L (137-145) mmol/L BUN 45 H (7-17) mg/dL Creatinine 3.57 H (0.52-1.04) mg/dL Glucose 113 H (74-99) mg/dL POC Glucose (mg/dL) (75-99) mg/dL Assessment and Plan Plan: Assessment: 1. Chronic kidney disease stage V secondary to diabetic kidney disease and cardiorenal syndrome. Now progressed to end-stage renal disease. Maintain on hemodialysis on a Saturday schedule. 2. Diastolic CHF with severe tricuspid regurgitation and pulmonary hypertension. 3. Diabetes mellitus. 4. Hypertension with chronic kidney disease. Controlled. 5. Volume overload. Better with ultrafiltration. 6. Chronic kidney disease mineral bone disease maintained on Renvela. 7. Hypercalcemia secondary to vitamin D. Better. Plan: Hemodialysis tomorrow. Maintain oral Lasix 80 mg twice daily. Outpatient dialysis has been set up by case management. Plan for rehab upon discharge. Discontinued vitamin D.
[2019-02-18] MEDS: ASPIRIN 81 MG PO SCH (10:12)
[2019-02-18] MEDS: FUROSEMIDE 80 MG TAB PO SCH (10:12)
[2019-02-18] MEDS: METOPROLOL TARTRATE 50 MG TAB PO SCH (10:12)
[2019-02-18] MEDS: ACETAMINOPHEN TAB 500 MG TAB PO SCH (10:12)
[2019-02-18] MEDS: SEVELAMER 800 MG TAB PO SCH (10:12)
[2019-02-18] MEDS: FAMOTIDINE 20 MG TAB PO SCH (10:12)
[2019-02-18 11:55] LABS: Glucose,Whole Blood 152 mg/dL (75-99)
--- NOTE | 2019-02-18 12:11 | P.DS ---
<Melodie España - Last Filed: 02/18/19 11:40> Hospital Course: final diagnosis Change in mental status, acute metabolic encephalopathy from renal failure, multifactorial Stage V renal failure from underlying hypertensive nephrosclerosis, on hemodialysis. Patient will be on dialysis in [place] and is returning to [facility]. Dialysis is set for , , and Saturday Acute pulmonary edema and fluid overload, improved Severe tricuspid regurgitation secondary to severe secondary pulmonary hypertension Persistent atrial fibrillation with permanent pacemaker Diabetes mellitus type 2, chronically on insulin Gastroesophageal reflux disease Hypertension Hyperlipidemia History of degenerative joint disease Chronic kidney disease Chronic gait dysfunction Obesity with body mass index of 39.6 Coumadin monitoring. Patient was supratherapeutic and vitamin K was given current INR is 2.0. Follow-up with daily PT/INR levels at [facility] Discharge disposition Patient is being discharged in a stable condition with guarded prognosis to [facility]. Patient will be on dialysis on Tuesdays and Saturdays. History of present illness This is a 73-year-old female that was admitted for CHF exacerbation and also receiving hemodialysis. Patient will be going to [facility] for rehab. PT and OT were following the patient. Patient took a fall yesterday and had a contusion to the gluteal region. PT/INRs were elevated and vitamin K was given. Current INR is 2.0. Patient will continue with daily PT/INR levels until therapeutic. Patient is sleepy but arousable. Patient is denying any chest pain, shortness of breath, or palpitations at this time. Patient denies any nausea or vomiting or abdominal pain at this time. Patient states that she does have some mild buttock pain. On exam vital signs are stable. Blood pressure is 117/72, respirations are 15, pulse is 70, temp is 98.6F, oxygen is 96% on 4 L. Cardio S1 and S2 are normal. Respiratory is diminished in the bases with a few scattered rhonchi noted. The abdomen is soft, obese, and non-tender. Nervous system shows mild diffuse weakness. Please refer to medication reconciliation sheet for list of medications. Patient Condition at Discharge: Good Plan - Discharge Summary Discharge Rx Participant: Yes New Discharge Prescriptions: New Warfarin [Coumadin] 1 mg PO DAILY tab Furosemide [Lasix] 80 mg PO BID@0900,1600 #0 tab INSULIN ASPART (NovoLOG) [NovoLOG (formulary)] 0 unit SQ ACHS vial Continue Ezetimibe [Zetia] 10 mg PO HS Ranitidine HCl [Zantac] 150 mg PO BID Cholecalciferol [Vitamin D3 (25 Mcg = 1000 Iu)] 1,000 unit PO DAILY Metoprolol Tartrate [Lopressor] 50 mg PO BID Sevelamer [Renvela] 800 mg PO TID Albuterol Inhaler [Ventolin Hfa Inhaler] 2 puff INHALATION RT-Q6H PRN PRN Reason: Shortness Of Breath Albuterol Nebulized [Ventolin Nebulized] 2.5 mg INHALATION RT-TID PRN PRN Reason: Shortness Of Breath Insulin Detemir [Levemir Flextouch] 55 units SQ DAILY Ascorbic Acid [Vitamin C] 500 mg PO DAILY@1200 Acetaminophen [Tylenol] 500 mg PO HS Acetaminophen Tab [Tylenol] 250 mg PO QAM Cinnamon Bark [Cinnamon] 1,000 mg PO BID Exenatide Microspheres [Bydureon Pen] 2 mg SQ Q7D Multivitamins, Thera [Multivitamin (formulary)] 1 tab PO HS [place]-3/Dha/Epa/Fish Oil [Fish Oil 500 mg Softgel] 1 cap PO DAILY@1200 Vitamin E (Dl,Tocopheryl Acet) [Vitamin E] 400 unit PO DAILY@1200 Aspirin 81 mg PO BID Changed Meclizine [Antivert] 12.5 mg PO BID PRN #1 PRN Reason: dizziness diphenhydrAMINE HCL [Benadryl] 12.5 mg PO TID PRN #1 PRN Reason: Allergy Symptoms Discontinued Pioglitazone [Actos] 15 mg PO DAILY Meclizine HCl 25 mg PO DAILY Bumetanide 0.5 mg PO DAILY Furosemide [Lasix] 20 mg PO HS Furosemide [Lasix] 40 mg PO QAM Discharge Medication List Cholecalciferol [Vitamin D3 (25 Mcg = 1000 Iu)] 1,000 unit PO DAILY 12/22/17 [History] Ezetimibe [Zetia] 10 mg PO HS 12/22/17 [History] Metoprolol Tartrate [Lopressor] 50 mg PO BID 12/22/17 [History] Ranitidine HCl [Zantac] 150 mg PO BID 12/22/17 [History] Albuterol Inhaler [Ventolin Hfa Inhaler] 2 puff INHALATION RT-Q6H PRN 07/27/18 [History] Sevelamer [Renvela] 800 mg PO TID 07/27/18 [History] Albuterol Nebulized [Ventolin Nebulized] 2.5 mg INHALATION RT-TID PRN 08/19/18 [History] Ascorbic Acid [Vitamin C] 500 mg PO DAILY@1200 08/19/18 [History] Insulin Detemir [Levemir Flextouch] 55 units SQ DAILY 08/19/18 [History] Acetaminophen Tab [Tylenol] 250 mg PO QAM 02/10/19 [History] Acetaminophen [Tylenol] 500 mg PO HS 02/10/19 [History] Aspirin 81 mg PO BID 02/10/19 [History] Cinnamon Bark [Cinnamon] 1,000 mg PO BID 02/10/19 [History] Exenatide Microspheres [Bydureon Pen] 2 mg SQ Q7D 02/10/19 [History] Multivitamins, Thera [Multivitamin (formulary)] 1 tab PO HS 02/10/19 [History] [place]-3/Dha/Epa/Fish Oil [Fish Oil 500 mg Softgel] 1 cap PO DAILY@1200 02/10/19 [History] Vitamin E (Dl,Tocopheryl Acet) [Vitamin E] 400 unit PO DAILY@1200 02/10/19 [History] Furosemide [Lasix] 80 mg PO BID@0900,1600 #0 tab 02/18/19 [Rx] INSULIN ASPART (NovoLOG) [NovoLOG (formulary)] 0 unit SQ ACHS vial 02/18/19 [Rx] Meclizine [Antivert] 12.5 mg PO BID PRN #1 02/18/19 [Rx] Warfarin [Coumadin] 1 mg PO DAILY tab 02/18/19 [Rx] diphenhydrAMINE HCL [Benadryl] 12.5 mg PO TID PRN #1 02/18/19 [Rx] Follow up Appointment(s)/Referral(s): Marc Avitia MD [Primary Care Provider] - 1-2 days [facility] [NON-STAFF] - As Needed Rodney Alvarado MD [STAFF PHYSICIAN] - 2 Weeks Ambulatory/Diagnostic Orders: Prothrombin Time INR [LAB.AMB] Time Frame: 1 Day, Location: None Selected Activity/Diet/Wound Care/Special Instructions: Patient to [facility] Activity limited until follow-up, may advance as tolerated continue current diet Monitor blood sugars daily PT/INR levels dialysis is set for , , and Saturdays Discharge Disposition: TRANSFER TO SNF/ECF <PardeepGarret - Last Filed: 02/18/19 15:10> Providers Date of admission: 02/10/19 18:28 total time taken 35 mts Attending physician: Cortez Harman Consults: 02/10/19 18:27 Consult Physician Routine Consulting Provider: Rodney Alvarado Consult Reason/Comments: CHF exacerbation Do you want consulting provider notified?: Yes 02/11/19 11:38 Consult Physician Routine Consulting Provider: Tigre Helton Consult Reason/Comments: acute on chronic kidney disease Do you want consulting provider notified?: Yes 02/11/19 16:28 Consult Physician Routine Consulting Provider: Onur Pearl Consult Reason/Comments: permacath placement for dialysis Do you want consulting provider notified?: Yes Primary care physician: Marc Avitia
[2019-02-18] MEDS ORDERED: WARFARIN 2 MG TAB PO ONE (18:00)
== END 2019-02-18 15:26 | DRG 291 ==
LOC: EC 15:39 → 4SSUR 18:26 → OBSVTOIN 18:28
PROVIDERS: ADMIT Hospitalist; ATTEND Hospitalist
PROC: 5A1D70Z Performance of Urinary Filtration, Intermittent, Less than 6 Hours Per Day (ICD-10-PCS; principal; 2019-02-12 06:27)
PROC: 06H033Z Insertion of Infusion Device into Inferior Vena Cava, Percutaneous Approach (ICD-10-PCS; principal; 2019-02-12 06:27)
DX: I13.2 Hypertensive heart and chronic kidney disease with heart failure and with stage 5 chronic kidney disease, or end stage renal disease (principal); G93.41 Metabolic encephalopathy; I50.33 Acute on chronic diastolic (congestive) heart failure; J96.01 Acute respiratory failure with hypoxia; N18.6 End stage renal disease; I48.1 Persistent atrial fibrillation; Z68.41 Body mass index [BMI] 40.0-44.9, adult; E11.22 Type 2 diabetes mellitus with diabetic chronic kidney disease; I27.29 Other secondary pulmonary hypertension; E66.01 Morbid (severe) obesity due to excess calories; E83.52 Hypercalcemia; I08.1 Rheumatic disorders of both mitral and tricuspid valves; E78.5 Hyperlipidemia, unspecified; J45.909 Unspecified asthma, uncomplicated; K21.9 Gastro-esophageal reflux disease without esophagitis; M19.91 Primary osteoarthritis, unspecified site; E83.89 Other disorders of mineral metabolism; S30.0XXA Contusion of lower back and pelvis, initial encounter; R29.6 Repeated falls; R32 Unspecified urinary incontinence; R26.9 Unspecified abnormalities of gait and mobility; Z79.4 Long term (current) use of insulin; Z79.82 Long term (current) use of aspirin; Z79.899 Other long term (current) drug therapy; Z95.0 Presence of cardiac pacemaker; Z86.73 Personal history of transient ischemic attack (TIA), and cerebral infarction without residual deficits; Z88.8 Allergy status to other drugs, medicaments and biological substances
CPT/HCPCS: 36415; 36558; 71045; 71046; 76937; 77001; 80048; 81001; 83036; 83735; 83880; 84100; 84484; 85025; 85610; 86704; 86706; 87340; 90935; 93005; 93306; 94640; 94760; 96374; 96376; 99285

== ENCOUNTER 2019-09-23 02:25 | Inpatient (IN) | payer MEDICARE, OTHER ==
[2019-09-23 02:46] LABS: Basophils # (A) 0.1 k/uL (0-0.2); Basophils % (A) 1 %; Eosinophils # (A) 0.3 k/uL (0-0.7); Eosinophils % (A) 3 %; HCT 37.4 % (34.0-46.0); HGB 12.6 gm/dL (11.4-16.0); Lymphocytes # (A) 1.4 k/uL (1.0-4.8); Lymphocytes % (A) 14 %; MCHC 33.6 g/dL (31.0-37.0); MCV 104.2 fL (80.0-100.0); Macrocytosis Moderate; Mean Platelet Volume 6.9; Monocytes # (A) 0.8 k/uL (0-1.0); Monocytes % (A) 8 %; Neutrophils % (A) 71 %; Platelet Count 289 k/uL (150-450); RBC 3.59 m/uL (3.80-5.40); RDW 15.3 % (11.5-15.5); WBC 9.9 k/uL (3.8-10.6)
[2019-09-23] MEDS ORDERED: MORPHINE SULFATE 4 MG/ML SYRINGE IV STA (02:46)
[2019-09-23 03:08] LABS: Albumin 4.2 g/dL (3.5-5.0); Calcium 10.9 mg/dL (8.4-10.2); Potassium 4.8 mmol/L (3.5-5.1); Total Bilirubin 0.4 mg/dL (0.2-1.3); Total Protein 7.1 g/dL (6.3-8.2)
[2019-09-23] MEDS ORDERED: MORPHINE SULFATE 4 MG/ML SYRINGE IV PRN (05:12)
[2019-09-23] MEDS ORDERED: NALOXONE 0.4 MG/ML 1 ML VIAL IV PRN (05:12)
[2019-09-23] MEDS ORDERED: ONDANSETRON 4 MG/2 ML VIAL IVP PRN (05:12)
[2019-09-23] MEDS ORDERED: ACETAMINOPHEN TAB 325 MG TAB PO PRN ×2 (05:12→10:37)
--- NOTE | 2019-09-23 05:25 | ED ---
Abdominal Pain HPI - General Chief Complaint: Abdominal Pain Stated Complaint: Abdominal Pain Time Seen by Provider: 09/23/19 02:40 Source: EMS Mode of arrival: EMS Limitations: no limitations - History of Present Illness Initial Comments: This patient is 74-year-old woman transferred here from outside hospital to be admitted for abdominal pain. The patient had been at long-term care facility and then over the course of about the past 3 days had been noting upper abdominal pain as well as episodes of vomiting and some occasional loose bowel movements. Patient not able to fully characterize the pain. She was worked up at the outside hospital revealing and lipase of 1009. Patient denies previous history of pancreatitis. Patient does have history of end-stage renal disease, taking hemodialysis Saturday, , Saturday. She did not take her dialysis today as she was not feeling well. MD Complaint: abdominal pain Onset/Timin -: days(s) Location: periumbilical, LUQ, RUQ Radiation: none Migration to: no migration Severity: moderate Quality: stabbing Consistency: constant Improves With: nothing Worsens With: nothing Associated Symptoms: nausea, vomiting, diarrhea - Related Data Home Medications Medication Instructions Recorded Confirmed Cholecalciferol [Vitamin D3 (25 1,000 unit PO DAILY 12/22/17 02/10/19 Mcg = 1000 Iu)] Ezetimibe [Zetia] 10 mg PO HS 12/22/17 02/10/19 Metoprolol Tartrate [Lopressor] 50 mg PO BID 12/22/17 02/10/19 Ranitidine HCl [Zantac] 150 mg PO BID 12/22/17 02/10/19 Albuterol Inhaler [Ventolin Hfa 2 puff INHALATION RT-Q6H PRN 07/27/18 02/10/19 Inhaler] Sevelamer [Renvela] 800 mg PO TID 07/27/18 02/10/19 Albuterol Nebulized [Ventolin 2.5 mg INHALATION RT-TID PRN 08/19/18 02/10/19 Nebulized] Ascorbic Acid [Vitamin C] 500 mg PO DAILY@1200 08/19/18 02/10/19 Insulin Detemir [Levemir Flextouch] 55 units SQ DAILY 08/19/18 02/10/19 Acetaminophen Tab [Tylenol] 250 mg PO QAM 02/10/19 02/10/19 Acetaminophen [Tylenol] 500 mg PO HS 02/10/19 02/10/19 Aspirin 81 mg PO BID 02/10/19 02/10/19 Cinnamon Bark [Cinnamon] 1,000 mg PO BID 02/10/19 02/10/19 Exenatide Microspheres [Bydureon 2 mg SQ Q7D 02/10/19 02/10/19 Pen] Multivitamins, Thera [Multivitamin 1 tab PO HS 02/10/19 02/10/19 (formulary)] [place]-3/Dha/Epa/Fish Oil [Fish Oil 1 cap PO DAILY@1200 02/10/19 02/10/19 500 mg Softgel] Vitamin E (Dl,Tocopheryl Acet) 400 unit PO DAILY@1200 02/10/19 02/10/19 [Vitamin E] Previous Rx's Medication Instructions Recorded Furosemide [Lasix] 80 mg PO BID@0900,1600 #0 tab 02/18/19 INSULIN ASPART (NovoLOG) [NovoLOG 0 unit SQ ACHS vial 02/18/19 (formulary)] Meclizine [Antivert] 12.5 mg PO BID PRN #1 02/18/19 Warfarin [Coumadin] 1 mg PO DAILY tab 02/18/19 diphenhydrAMINE HCL [Benadryl] 12.5 mg PO TID PRN #1 02/18/19 Allergies Allergy/AdvReac Type Severity Reaction Status Date / Time lisinopril Allergy Itching Verified 02/10/19 17:41 Hslgsed-Rin-Nrr Reductase Allergy Itching Verified 02/10/19 17:41 Inhibitor Review of Systems ROS Statement: Those systems with pertinent positive or pertinent negative responses have been documented in the HPI. ROS Other: All systems not noted in ROS Statement are negative. Constitutional: Denies: fever, chills Respiratory: Denies: cough, dyspnea Cardiovascular: Denies: chest pain, palpitations, edema Gastrointestinal: Reports: abdominal pain, nausea, vomiting, diarrhea. Denies: constipation, hematemesis, melena, hematochezia Genitourinary: Denies: dysuria, frequency Musculoskeletal: Denies: back pain Skin: Denies: rash Neurological: Denies: headache, weakness, numbness Past Medical History Past Medical History: Atrial Fibrillation, Asthma, Heart Failure, CVA/TIA, Diabetes Mellitus, Deep Vein Thrombosis (DVT), Eye Disorder, GERD/Reflux, Hyperlipidemia, Hypertension, Osteoarthritis (OA), Renal Disease History of Any Multi-Drug Resistant Organisms: None Reported Past Surgical History: Adenoidectomy, Appendectomy, Cholecystectomy, Pacemaker, Tonsillectomy Past Anesthesia/Blood Transfusion Reactions: No Reported Reaction Type of Cardiac Device: Permanent Pacemaker Device Placement Date:: 2016 Past Psychological History: No Psychological Hx Reported Smoking Status: Never smoker Past Alcohol Use History: None Reported Past Drug Use History: None Reported - Past Family History Father Family Medical History: Myocardial Infarction ([place]) Additional Family Medical History / Comment(s): RHEUMATIC FEVER General Exam Limitations: no limitations General appearance: alert, in no apparent distress Head exam: Present: atraumatic, normocephalic Eye exam: Present: normal appearance. Absent: scleral icterus, conjunctival injection ENT exam: Present: normal oropharynx Neck exam: Present: normal inspection Respiratory exam: Present: normal lung sounds bilaterally. Absent: respiratory distress, wheezes, rales, rhonchi, stridor Cardiovascular Exam: Present: regular rate, normal rhythm, normal heart sounds, other (Dialysis catheter in the right upper chest, no evidence of infection.). Absent: systolic murmur, diastolic murmur, rubs, gallop GI/Abdominal exam: Present: soft, tenderness (Epigastric, mild tenderness with no rebound or guarding). Absent: distended, guarding, rebound, rigid, mass, pulsatile mass Extremities exam: Present: normal inspection, normal capillary refill. Absent: pedal edema, calf tenderness Back exam: Present: normal inspection. Absent: CVA tenderness (R), CVA tenderness (L) Neurological exam: Present: alert Skin exam: Present: warm, dry, intact, normal color. Absent: rash Course Vital Signs 09/23/19 09/23/19 09/23/19 02:27 03:00 04:00 Temperature 98 F Pulse Rate 74 72 78 Respiratory 18 18 18 Rate Blood Pressure 117/64 120/63 99/52 O2 Sat by Pulse 98 99 97 Oximetry 09/23/19 09/23/19 05:00 06:00 Temperature 97.9 F Pulse Rate 79 74 Respiratory 17 17 Rate Blood Pressure 106/87 123/75 O2 Sat by Pulse 100 97 Oximetry Medical Decision Making - Lab Data Result diagrams: 09/23/19 02:37 09/23/19 02:37 Lab Results 09/23/19 09/23/19 09/23/19 Range/Units 02:37 02:37 02:37 WBC 9.9 (3.8-10.6) k/uL RBC 3.59 L (3.80-5.40) m/uL Hgb 12.6 (11.4-16.0) gm/dL Hct 37.4 (34.0-46.0) % MCV 104.2 H (80.0-100.0) fL MCH 35.0 (25.0-35.0) pg MCHC 33.6 (31.0-37.0) g/dL RDW 15.3 (11.5-15.5) % Plt Count 289 (150-450) k/uL Neutrophils % 71 % Lymphocytes % 14 % Monocytes % 8 % Eosinophils % 3 % Basophils % 1 % Neutrophils # 7.0 (1.3-7.7) k/uL Lymphocytes # 1.4 (1.0-4.8) k/uL Monocytes # 0.8 (0-1.0) k/uL Eosinophils # 0.3 (0-0.7) k/uL Basophils # 0.1 (0-0.2) k/uL Macrocytosis Moderate Sodium 133 L (137-145) mmol/L Potassium 4.8 (3.5-5.1) mmol/L Chloride 94 L (98-107) mmol/L Carbon Dioxide 21 L (22-30) mmol/L Anion Gap 18 mmol/L BUN 60 H (7-17) mg/dL Creatinine 8.85 H* (0.52-1.04) mg/dL Est GFR (CKD-EPI)AfAm 5 (>60 ml/min/1.73 sqM) Est GFR (CKD-EPI)NonAf 4 (>60 ml/min/1.73 sqM) Glucose 95 (74-99) mg/dL Calcium 10.9 H (8.4-10.2) mg/dL Total Bilirubin 0.4 (0.2-1.3) mg/dL AST 19 (14-36) U/L ALT 19 (4-34) U/L Alkaline Phosphatase 186 H (38-126) U/L Troponin I 0.021 (0.000-0.034) ng/mL Total Protein 7.1 (6.3-8.2) g/dL Albumin 4.2 (3.5-5.0) g/dL Disposition Clinical Impression: Abdominal pain, Pancreatitis, End stage renal disease Disposition: ADMITTED IP TO THIS HOSP Condition: Fair
[2019-09-23] MEDS ORDERED: BISACODYL 10 MG SUPP RECTAL PRN (10:37)
[2019-09-23] MEDS ORDERED: traMADol 50 MG TAB PO PRN (10:37)
[2019-09-23] MEDS ORDERED: NON FORMULARY DRUG (Warfarin Sodium [Coumadin] 4 MG) PO SCH (10:45)
[2019-09-23 10:51] LABS: Appearance,Urine Turbid (Clear); Bacteria,Urine Many /hpf; Bilirubin,Urine Negative (Negative); Blood,Urine Small (Negative); Color,Urine Yellow; Glucose,Urine (UA) Negative (Negative); Ketones,Urine Negative (Negative); Leukocyte Esterase,Urine Large (Negative); Mucus,Urine Rare /hpf; Nitrite,Urine Negative (Negative); Protein,Urine 1+ (Negative); RBC,Urine 32 /hpf (0-5); Specific Gravity,Urine 1.016 (1.001-1.035); Squamous Epithelial Cell,Urine 8 /hpf (0-4); Urobilinogen,Urine <2.0 mg/dL (<2.0); WBC,Urine 48 /hpf (0-5)
[2019-09-23 11:26] LABS: INR 3.7 (<1.2); Prothrombin Time 36.7 sec (9.0-12.0)
[2019-09-23] MEDS: METOPROLOL TARTRATE 50 MG TAB PO SCH ×2 (11:34→21:13)
[2019-09-23] MEDS: ASCORBIC ACID 500 MG TAB PO SCH (11:34)
[2019-09-23] MEDS: INSULIN DETEMIR (LEVEMIR) 100 UNIT/ML SYR SQ SCH (11:34)
[2019-09-23] MEDS: PANTOPRAZOLE 40 MG TABLET PO SCH (11:34)
[2019-09-23 11:36] LABS: Glucose,Whole Blood 163 mg/dL (75-99)
[2019-09-23] MEDS: INSULIN ASPART (NovoLOG) 100 UNIT/ML VIAL SQ SCH ×3 (11:36→21:08)
[2019-09-23] MEDS: SEVELAMER 800 MG TAB PO SCH ×2 (11:36→16:25)
[2019-09-23 12:08] LABS: Amylase 202 U/L (30-110)
--- NOTE | 2019-09-23 13:02 | CONS ---
CONSULTATION REASON FOR CONSULT: End-stage renal disease. HISTORY OF PRESENT ILLNESS: The patient is a 74-year-old female with end-stage renal disease, on hemodialysis on a Saturday, , Saturday schedule at the [facility]. She was admitted to the hospital with complaints of weakness, nausea and vomiting and decreased oral intake for past 3 days prior to admission. The patient did not go for dialysis yesterday. She denies any chest pains or shortness of breath at this time. PAST MEDICAL HISTORY: Significant for end-stage renal disease, history of CHF, CVA, TIA, type 2 diabetes, chronic atrial fibrillation, gastroesophageal reflux disease, hyperlipidemia, osteoarthritis, history of DVT. PAST SURGICAL HISTORY: Adenoidectomy, appendectomy, cholecystectomy, pacemaker placement, tonsillectomy. SOCIAL HISTORY: Otherwise negative for smoking, drug abuse or alcohol abuse. MEDICATIONS: Medications prior to admission included vitamin E, multivitamins, aspirin, Tylenol, vitamin C, Renvela, Zantac, Lopressor, Zetia, vitamin D3, Coumadin, Antivert, Benadryl, Lasix. ALLERGIES: Allergies include LISINOPRIL which causes itching and STATINS cause itching as well. PHYSICAL EXAMINATION: On examination, patient is comfortable, awake, not in any acute distress. Alert and oriented x3. Blood pressure is 133/74, heart rate 77 per minute. Patient is afebrile. EXAMINATION OF THE HEART: S1, S2. EXAMINATION OF THE LUNGS: Bilateral breath sounds are heard. ABDOMEN: Soft, nontender. Examination of lower extremities shows no significant edema. OCCUPATIONAL THERAPIST ASSISTANT exam grossly intact. Patient is morbidly obese. LABS: Labs show sodium 133, potassium 4.8, BUN 60, serum creatinine 8.85, hemoglobin of 12.6 g/dL, UA shows WBCs 48, protein 1+, leukocyte esterase large. Lipase was 985, amylase 202. ASSESSMENT: 1. End-stage renal disease on hemodialysis normally on a Saturday, , Saturday schedule. Patient missed her treatment yesterday. She will be dialyzed for about 2 hours today and then again tomorrow. 2. Pyuria, rule out urinary tract infection. 3. Acute pancreatitis. Amylase, lipase will be followed. Surgery/GI consult as per primary. I am not sure if the patient had a CT scan or ultrasound done regarding the pancreatitis. PLAN: Hemodialysis today and then again in a.m. Continue with current dose of p.o. Lasix. Maintain midodrine prior to dialysis. If patient will be n.p.o. we will need to hold her phosphate binders. Otherwise, she can continue. Thank you for this consultation. We will continue to follow the patient with you during her hospitalization. MAYA / DAYAMI: [id number] /
[2019-09-23] MEDS: ACETAMINOPHEN TAB 325 MG TAB PO SCH ×2 (15:34→21:12)
[2019-09-23] MEDS: FUROSEMIDE 80 MG TAB PO SCH (16:25)
[2019-09-23 16:47] LABS: Glucose,Whole Blood 105 mg/dL (75-99)
[2019-09-23] MEDS ORDERED: WARFARIN 0.5 MG TAB PO ONE (18:00)
--- NOTE | 2019-09-23 18:18 | P.HPIM ---
History of Present Illness H&P Date: 09/23/19 Chief Complaint: Abdominal pain History of presenting complaint: This is a very pleasant 74-year-old patient of Dr. Avitia. Chronic stable medical conditions include atrial fibrillation with a permanent pacemaker, asthma, questionable CHF, diabetes, DVT, GERD, hyperlipidemia, hypertension, osteoarthritis, end-stage kidney disease on hemodialysis Tuesdays. Patient is a resident of [facility]. Has a deep POA. Patient presented with vomiting 3 or 4 times yesterday multiple episodes of diarrhea, loose with abdominal pain. No fever no chills. No blood in the stool. Patient had mild elevation of amylase and lipase. Did tolerate some d iet this morning. Still having upper abdominal tenderness. Waiting to have for dialysis today. Review of systems: GEN.: Tired EYES: [None] HEENT: [None] NECK: [None] RESPIRATORY: [None] CARDIOVASCULAR: [None] GASTROINTESTINAL: [As above] GENITOURINARY: [None] MUSCULOSKELETAL: [Some joint pains] LYMPHATICS: [None] HEMATOLOGICAL: [None] PSYCHIATRY: [None] NEUROLOGICAL: [None] Past medical history: Atrial fibrillation, CHF, stroke, diabetes, DVT, GERD, hyperlipidemia, essential hypertension, osteoarthritis, ESRD on hemodialysis, permanent pacemaker Social history: Currently at [facility]. Does use a walker at home. No smoking or alcohol history. Has a deep POA Physical examination: VITAL SIGNS: 98, 74, 18, 11 7/64, 98% on 2 L GENERAL: BMI 40.7, sitting up in bed, tired awake. EYES: Pupils equal. Conjunctiva normal. HEENT: External appearance of nose and ears normal, oral cavity grossly normal. NECK: JVD unable to assess; masses not palpable. HEART: Heart sounds are muffled,; some edema . LUNGS: Respiratory rate normal; decreased breath sounds. ABDOMEN: Soft, upper abdominal tenderness, no guarding or rigidity liver spleen not palpable, no masses palpable. Bowel sounds present PSYCH: Awake, answering questions. NEUROLOGICAL: Cranial nerves grossly intact; no facial asymmetry, power and sensation grossly intact. LYMPHATICS: No lymph nodes palpable in the axilla and neck INVESTIGATIONS, reviewed in the clinical context: White count 9.9 hemoglobin 12.6 platelets 289 INR 3.7 potassium 4.8 bun 60 creatinine 8.85 Amylase 202 lipase 95 UA positive for leukoesterase, WBC Computed tomography scan of the abdomen reported from the other institution- unremarkable Assessment: -Acute pancreatitis, idiopathic, POA -End-stage kidney disease on hemodialysis Tuesdays, having missed just yesterday -Acute UTI with cystitis, POA -Severe tricuspid regurgitation secondary to severe secondary pulmonary hypertension -Persistent atrial fibrillation with a permanent pacemaker in place -Diabetes mellitus type 2, chronically on insulin -GERD -Hyperlipidemia -Essential hypertension -Primary osteoarthritis -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 Given IV ceftriaxone. Home medications resumed. Dr. Pereyra from general surgery was consulted. At this point does not appear to be surgical abdomen. Patient has been started on a liquid diet. Past Medical History Past Medical History: Atrial Fibrillation, Asthma, Heart Failure, CVA/TIA, Diabetes Mellitus, Deep Vein Thrombosis (DVT), Eye Disorder, GERD/Reflux, Hyperlipidemia, Hypertension, Osteoarthritis (OA), Renal Disease Additional Past Medical History / Comment(s): TIA 2018; HEMODIALYSIS //[facility] History of Any Multi-Drug Resistant Organisms: None Reported Past Surgical History: Adenoidectomy, Appendectomy, Cholecystectomy, Pacemaker, Tonsillectomy Past Anesthesia/Blood Transfusion Reactions: No Reported Reaction Type of Cardiac Device: Permanent Pacemaker Device Placement Date:: 2016 Past Psychological History: No Psychological Hx Reported Smoking Status: Never smoker Past Alcohol Use History: None Reported Past Drug Use History: None Reported - Past Family History Father Family Medical History: Myocardial Infarction ([place]) Additional Family Medical History / Comment(s): RHEUMATIC FEVER Medications and Allergies Home Medications Medication Instructions Recorded Confirmed Type Ezetimibe [Zetia] 10 mg PO HS 12/22/17 09/23/19 History Metoprolol Tartrate [Lopressor] 50 mg PO BID 12/22/17 09/23/19 History Sevelamer [Renvela] 800 mg PO DIRECTED 07/27/18 09/23/19 History Ascorbic Acid [Vitamin C] 500 mg PO DAILY 08/19/18 09/23/19 History Aspirin 81 mg PO BID 02/10/19 09/23/19 History Cinnamon Bark [Cinnamon] 1,000 mg PO BID 02/10/19 09/23/19 History [place]-3/Dha/Epa/Fish Oil [Fish Oil 1 cap PO DAILY 02/10/19 09/23/19 History 500 mg Softgel] Vitamin E (Dl,Tocopheryl Acet) 400 unit PO DAILY 02/10/19 09/23/19 History [Vitamin E] Acetaminophen Tab [Tylenol] 325 mg PO TID 09/23/19 09/23/19 History Acetaminophen Tab [Tylenol] 650 mg PO Q6H PRN 09/23/19 09/23/19 History Bisacodyl 10 mg RECTAL DAILY PRN 09/23/19 09/23/19 History Docusate [Colace] 100 mg PO BID 09/23/19 09/23/19 History Exenatide Microspheres [Bydureon 2 mg SQ TU 09/23/19 09/23/19 History Pen] Fluticasone Nasal [place] [Flonase 1 spr EA NOSTRIL DAILY 09/23/19 09/23/19 History Nasal [place]] Furosemide [Lasix] 80 mg PO BID 09/23/19 09/23/19 History INSULIN ASPART (NovoLOG) [NovoLOG See Protocol SQ ACHS 09/23/19 09/23/19 History (formulary)] Insulin Glargine,Hum.rec.anlog 50 unit SQ DAILY 09/23/19 09/23/19 History [Basaglar Kwikpen U-100] Midodrine HCl [ProAmatine] 10 mg PO TUTHSA 09/23/19 09/23/19 History Omeprazole 20 mg PO DAILY 09/23/19 09/23/19 History Sevelamer [Renvela] 2,400 mg PO DIRECTED 09/23/19 09/23/19 History Warfarin Sodium [Coumadin] 4 mg PO DAILY 09/23/19 09/23/19 History traMADol HCL 50 mg PO Q6H PRN 09/23/19 09/23/19 History Allergies Allergy/AdvReac Type Severity Reaction Status Date / Time lisinopril Allergy Itching Verified 09/23/19 10:19 [id number]-Ary Reductase Allergy Itching Verified 09/23/19 10:19 Inhibitor Physical Exam Vitals: Vital Signs Temp Pulse Pulse Resp BP BP Pulse Ox 09/23/19 08:10 98.4 F 77 18 133/74 97 09/23/19 06:00 97.9 F 74 17 123/75 97 09/23/19 05:00 79 17 106/87 100 09/23/19 04:00 78 18 99/52 97 09/23/19 03:00 72 18 120/63 99 09/23/19 02:27 98 F 74 18 117/64 98 Intake and Output 09/22/19 09/23/19 09/23/19 22:59 06:59 14:59 Other: Weight 104.326 kg 104.326 kg Results CBC & Chem 7: 09/23/19 02:37 09/23/19 02:37 Labs: Abnormal Lab Results - Last 24 Hours (Table) 09/23/19 09/23/19 Range/Units 02:37 02:37 RBC 3.59 L (3.80-5.40) m/uL MCV 104.2 H (80.0-100.0) fL Sodium 133 L (137-145) mmol/L Chloride 94 L (98-107) mmol/L Carbon Dioxide 21 L (22-30) mmol/L BUN 60 H (7-17) mg/dL Creatinine 8.85 H* (0.52-1.04) mg/dL Calcium 10.9 H (8.4-10.2) mg/dL Alkaline Phosphatase 186 H (38-126) U/L Thrombosis Risk Factor Assmnt - Choose All That Apply Each Factor Represents 1 point: Abnormal pulmonary function (COPD), Medical pt on bed rest, Obesity (BMI >25) Each Risk Factor Represents 2 Points: Age 61-74 years, Patient confined to bed Each Risk Factor Represents 3 Points: History of DVT/PE Thrombosis Risk Factor Assessment Total Risk Factor Score: 10 Thrombosis Risk Factor Assessment Level: High Risk
--- NOTE | 2019-09-23 18:46 | P.GSCN ---
History of Present Illness Consult date: 09/23/19 History of present illness: CHIEF COMPLAINT: Hematochezia HISTORY OF PRESENT ILLNESS: The patient is a 74-year-old female transferred from outside institution secondary to moderate to severe abdominal pain of the epigastrium. Chemistries were consistent with acute pancreatitis. Upon transfer to this facility, lipase identified over 900. As a result, general surgery is consulted for abdominal pain including pancreatitis. Patient does report having previous cholecystectomy. She also presents with chronic renal failure. at the time of my evaluation, patient is tolerating clear liquid diet. Her abdominal pain has improved. PAST MEDICAL HISTORY: See list. PAST SURGICAL HISTORY: See list. MEDICATIONS: See list. ALLERGIES: See list. SOCIAL HISTORY: See list. FAMILY HISTORY: See list. REVIEW OF ORGAN SYSTEMS: CONSTITUTIONAL: No fevers or chills. No recent weight loss. EYES: Denies any trouble with vision. Wears glasses. HEENT: No difficulties with hearing. No nosebleeds. No difficulty swallowing. RESPIRATORY: Denies pneumonia. As troubles with breathing or dyspnea on exertion. CARDIOVASCULAR: Has congestive heart failure. History of atrial fibrillation. Has permanent pacemaker GASTROINTESTINAL: Denies fatty food intolerance. Has change in bowel habits and gas bloat. Has gastroesophageal reflux disease GENITOURINARY: Has chronic renal failure, dialysis dependent NEUROLOGICAL: Has numbness or tingling along the distal extremities. No seizure disorders or headaches. MUSCULOSKELETAL: Has back pain, stiffness or joint arthritis. SKIN: No current skin cancer. No rash. PSYCHIATRIC: Denies current depression or suicidal thoughts. ENDOCRINE: Denies current thyroid disorders. Has blood sugar glucose intolerance. HEME/LYMPHATIC: Denies any lumps and bumps around the neck. No recent deep venous thrombosis. On chronic blood thinners ALLERGY/IMMUNOLOGY: No immunoglobulin therapy. No immune deficiencies. BREAST: Denies current breast lumps, pain or nipple discharge. PHYSICAL EXAM: VITALS: Reviewed CONSTITUTIONAL: Well developed and in no acute distress. EYES: Conjuctivae without sclera icterus. Pupils are equally round and reactive to light. Extraocular movements grossly intact. HEAD, EARS, NOSE, THROAT: Moist buccal mucosa. Head is atraumatic, normocephalic. Hears conversational speech. No nasal drainage. NECK: Supple. No thyroidomegaly. RESPIRATORY: Non-labored respirations and equal bilateral excursions. No gross wheezes. CARDIOVASCULAR: Irregular rate. Irregular rhythm. Extremities without moderate edema. Palpable 2+ radial pulses. ABDOMEN: Soft. Protuberant. Mild tenderness epigastrium and left upper quadrant. No peritonitis. LYMPH: No neck lymphadenopathy. No axillary lymphadenopathy. MUSCULOSKELETAL: Nail and fingers with good capillary refill. SKIN: Warm and well perfused with good skin turgor. NEUROLOGIC: Cranial nerves I through XII grossly intact. Sensation upper and extremities intact. No focal or lateralizing signs. PSYCH: Appropriate affect. Alert and oriented to person, place and time. Displays appropriate insight. CLINCAL LABS: Reviewed. Lipase of 900. Creatinine over 8.9. WBC count within normal limits. IMAGING: Independently reviewed CT of the abdomen and pelvis with oral however without IV contrast demonstrates no inflammatory changes along the pancreas. No evidence of bowel obstruction or small bowel dilation. No evidence of free air. This my personal interpretation moderate stool burden identified. ASSESSMENT: 1. Elevated lipase, clinical pancreatitis 2. Epigastric abdominal pain, left upper quadrant abdominal pain 3. Chronic kidney failure, dialysis dependent 4. Morbid obesity due to excess calories, BMI 40.7 PLAN: 1. No surgical intervention needed as she had prior cholecystectomy. 2. Repeat chemistries. Clear liquid diet agreeable modify for renal patients. 3. At this time, ultrasound previously ordered by gastroenterology. 4. May benefit from lipid panel to evaluate cause of pancreatitis. Thank you for this kind consultation. Past Medical History Past Medical History: Atrial Fibrillation, Asthma, Heart Failure, CVA/TIA, Diabetes Mellitus, Deep Vein Thrombosis (DVT), Eye Disorder, GERD/Reflux, Hyperlipidemia, Hypertension, Osteoarthritis (OA), Renal Disease Additional Past Medical History / Comment(s): TIA 2018; HEMODIALYSIS //SAT History of Any Multi-Drug Resistant Organisms: None Reported Past Surgical History: Adenoidectomy, Appendectomy, Cholecystectomy, Pacemaker, Tonsillectomy Past Anesthesia/Blood Transfusion Reactions: No Reported Reaction Type of Cardiac Device: Permanent Pacemaker Device Placement Date:: 2016 Past Psychological History: No Psychological Hx Reported Smoking Status: Never smoker Past Alcohol Use History: None Reported Past Drug Use History: None Reported - Past Family History Father Family Medical History: Myocardial Infarction ([place]) Additional Family Medical History / Comment(s): RHEUMATIC FEVER Medications and Allergies Home Medications Medication Instructions Recorded Confirmed Type Ezetimibe [Zetia] 10 mg PO HS 12/22/17 09/23/19 History Metoprolol Tartrate [Lopressor] 50 mg PO BID 12/22/17 09/23/19 History Sevelamer [Renvela] 800 mg PO DIRECTED 07/27/18 09/23/19 History Ascorbic Acid [Vitamin C] 500 mg PO DAILY 08/19/18 09/23/19 History Aspirin 81 mg PO BID 02/10/19 09/23/19 History Cinnamon Bark [Cinnamon] 1,000 mg PO BID 02/10/19 09/23/19 History [place]-3/Dha/Epa/Fish Oil [Fish Oil 1 cap PO DAILY 02/10/19 09/23/19 History 500 mg Softgel] Vitamin E (Dl,Tocopheryl Acet) 400 unit PO DAILY 02/10/19 09/23/19 History [Vitamin E] Acetaminophen Tab [Tylenol] 325 mg PO TID 09/23/19 09/23/19 History Acetaminophen Tab [Tylenol] 650 mg PO Q6H PRN 09/23/19 09/23/19 History Bisacodyl 10 mg RECTAL DAILY PRN 09/23/19 09/23/19 History Docusate [Colace] 100 mg PO BID 09/23/19 09/23/19 History Exenatide Microspheres [Bydureon 2 mg SQ TU 09/23/19 09/23/19 History Pen] Fluticasone Nasal [place] [Flonase 1 spr EA NOSTRIL DAILY 09/23/19 09/23/19 History Nasal [place]] Furosemide [Lasix] 80 mg PO BID 09/23/19 09/23/19 History INSULIN ASPART (NovoLOG) [NovoLOG See Protocol SQ ACHS 09/23/19 09/23/19 History (formulary)] Insulin Glargine,Hum.rec.anlog 50 unit SQ DAILY 09/23/19 09/23/19 History [Basaglar Kwikpen U-100] Midodrine HCl [ProAmatine] 10 mg PO TUTHSA 09/23/19 09/23/19 History Omeprazole 20 mg PO DAILY 09/23/19 09/23/19 History Sevelamer [Renvela] 2,400 mg PO DIRECTED 09/23/19 09/23/19 History Warfarin Sodium [Coumadin] 4 mg PO DAILY 09/23/19 09/23/19 History traMADol HCL 50 mg PO Q6H PRN 09/23/19 09/23/19 History Allergies Allergy/AdvReac Type Severity Reaction Status Date / Time lisinopril Allergy Itching Verified 09/23/19 10:19 Csftyyc-Ofu-Plc Reductase Allergy Itching Verified 09/23/19 10:19 Inhibitor Surgical - Exam Vital Signs Temp Pulse Resp BP Pulse Ox 98 F 74 18 117/64 98 09/23/19 02:27 09/23/19 02:27 09/23/19 02:27 09/23/19 02:27 09/23/19 02:27 Results - Labs 09/23/19 02:37 09/23/19 02:37 Abnormal Lab Results - Last 24 Hours (Table) 09/23/19 09/23/19 09/23/19 Range/Units 02:37 02:37 02:37 RBC 3.59 L (3.80-5.40) m/uL MCV 104.2 H (80.0-100.0) fL PT 36.7 H (9.0-12.0) sec INR 3.7 H (<1.2) Sodium 133 L (137-145) mmol/L Chloride 94 L (98-107) mmol/L Carbon Dioxide 21 L (22-30) mmol/L BUN 60 H (7-17) mg/dL Creatinine 8.85 H* (0.52-1.04) mg/dL POC Glucose (mg/dL) (75-99) mg/dL Calcium 10.9 H (8.4-10.2) mg/dL Alkaline Phosphatase 186 H (38-126) U/L Amylase (30-110) U/L Lipase (23-300) U/L Urine Appearance (Clear) Urine Protein (Negative) Urine Blood (Negative) Ur Leukocyte Esterase (Negative) Urine RBC (0-5) /hpf Urine WBC (0-5) /hpf Ur Squamous Epith Cells (0-4) /hpf Urine Bacteria (None) /hpf Urine Mucus (None) /hpf 09/23/19 09/23/19 09/23/19 Range/Units 02:37 10:23 11:34 RBC (3.80-5.40) m/uL MCV (80.0-100.0) fL PT (9.0-12.0) sec INR (<1.2) Sodium (137-145) mmol/L Chloride (98-107) mmol/L Carbon Dioxide (22-30) mmol/L BUN (7-17) mg/dL Creatinine (0.52-1.04) mg/dL POC Glucose (mg/dL) 163 H (75-99) mg/dL Calcium (8.4-10.2) mg/dL Alkaline Phosphatase (38-126) U/L Amylase 202 H (30-110) U/L Lipase 985 H (23-300) U/L Urine Appearance Turbid H (Clear) Urine Protein 1+ H (Negative) Urine Blood Small H (Negative) Ur Leukocyte Esterase Large H (Negative) Urine RBC 32 H (0-5) /hpf Urine WBC 48 H (0-5) /hpf Ur Squamous Epith Cells 8 H (0-4) /hpf Urine Bacteria Many H (None) /hpf Urine Mucus Rare H (None) /hpf 09/23/19 Range/Units 16:44 RBC (3.80-5.40) m/uL MCV (80.0-100.0) fL PT (9.0-12.0) sec INR (<1.2) Sodium (137-145) mmol/L Chloride (98-107) mmol/L Carbon Dioxide (22-30) mmol/L BUN (7-17) mg/dL Creatinine (0.52-1.04) mg/dL POC Glucose (mg/dL) 105 H (75-99) mg/dL Calcium (8.4-10.2) mg/dL Alkaline Phosphatase (38-126) U/L Amylase (30-110) U/L Lipase (23-300) U/L Urine Appearance (Clear) Urine Protein (Negative) Urine Blood (Negative) Ur Leukocyte Esterase (Negative) Urine RBC (0-5) /hpf Urine WBC (0-5) /hpf Ur Squamous Epith Cells (0-4) /hpf Urine Bacteria (None) /hpf Urine Mucus (None) /hpf Microbiology - Last 24 Hours (Table) 09/23/19 10:23 Urine Culture - Preliminary Urine,Clean Catch Diabetes panel 09/23/19 Range/Units 02:37 Sodium 133 L (137-145) mmol/L Potassium 4.8 (3.5-5.1) mmol/L Chloride 94 L (98-107) mmol/L Carbon Dioxide 21 L (22-30) mmol/L BUN 60 H (7-17) mg/dL Creatinine 8.85 H* (0.52-1.04) mg/dL Glucose 95 (74-99) mg/dL Calcium 10.9 H (8.4-10.2) mg/dL AST 19 (14-36) U/L ALT 19 (4-34) U/L Alkaline Phosphatase 186 H (38-126) U/L Total Protein 7.1 (6.3-8.2) g/dL Albumin 4.2 (3.5-5.0) g/dL Calcium panel 09/23/19 Range/Units 02:37 Calcium 10.9 H (8.4-10.2) mg/dL Albumin 4.2 (3.5-5.0) g/dL Pituitary panel 09/23/19 Range/Units 02:37 Sodium 133 L (137-145) mmol/L Potassium 4.8 (3.5-5.1) mmol/L Chloride 94 L (98-107) mmol/L Carbon Dioxide 21 L (22-30) mmol/L BUN 60 H (7-17) mg/dL Creatinine 8.85 H* (0.52-1.04) mg/dL Glucose 95 (74-99) mg/dL Calcium 10.9 H (8.4-10.2) mg/dL Adrenal panel 09/23/19 Range/Units 02:37 Sodium 133 L (137-145) mmol/L Potassium 4.8 (3.5-5.1) mmol/L Chloride 94 L (98-107) mmol/L Carbon Dioxide 21 L (22-30) mmol/L BUN 60 H (7-17) mg/dL Creatinine 8.85 H* (0.52-1.04) mg/dL Glucose 95 (74-99) mg/dL Calcium 10.9 H (8.4-10.2) mg/dL Total Bilirubin 0.4 (0.2-1.3) mg/dL AST 19 (14-36) U/L ALT 19 (4-34) U/L Alkaline Phosphatase 186 H (38-126) U/L Total Protein 7.1 (6.3-8.2) g/dL Albumin 4.2 (3.5-5.0) g/dL Assessment and Plan (1) Diabetes mellitus type 2, insulin dependent Current Visit: Yes Status: Acute Code(s): E11.9 - TYPE 2 DIABETES MELLITUS WITHOUT COMPLICATIONS; Z79.4 - SKILLED NURSING (CURRENT) USE OF INSULIN SNOMED Code(s): 166042764 (2) History of pacemaker Current Visit: Yes Status: Acute Code(s): Z95.0 - PRESENCE OF CARDIAC PACEMAKER SNOMED Code(s): 980101578 (3) End stage renal disease Current Visit: Yes Status: Acute Code(s): N18.6 - END STAGE RENAL DISEASE SNOMED Code(s): 74589517 (4) Pancreatitis Current Visit: Yes Status: Acute Code(s): K85.90 - ACUTE PANCREATITIS WITHOUT NECROSIS OR INFECTION, UNSP SNOMED Code(s): 30400373 (5) Congestive heart failure Current Visit: No Status: Acute Code(s): I50.9 - HEART FAILURE, UNSPECIFIED SNOMED Code(s): 88605572 (6) Morbid obesity due to excess calories Current Visit: Yes Status: Acute Code(s): E66.01 - MORBID (SEVERE) OBESITY DUE TO EXCESS CALORIES SNOMED Code(s): 781971987 (7) Adult BMI 40.0-44.9 kg/sq m Current Visit: Yes Status: Acute Code(s): Z68.41 - BODY MASS INDEX (BMI) 40.0-44.9, ADULT SNOMED Code(s): 491837891
[2019-09-23 19:01] LABS: Hemoglobin A1C 5.9 % (4.0-6.0)
[2019-09-23] MEDS ORDERED: EZETIMIBE 10 MG TAB PO SCH (21:00)
[2019-09-23] MEDS: ASPIRIN 81 MG PO SCH (21:13)
[2019-09-23 21:51] LABS: Glucose,Whole Blood 100 mg/dL (75-99)
[2019-09-23 22:56] VITALS: RESP 18
[2019-09-24 07:16] LABS: Glucose,Whole Blood 93 mg/dL (75-99)
[2019-09-24] MEDS ORDERED: SEVELAMER 800 MG TAB PO SCH (07:30)
[2019-09-24] MEDS: INSULIN ASPART (NovoLOG) 100 UNIT/ML VIAL SQ SCH ×3 (08:15→17:13)
[2019-09-24] MEDS: PANTOPRAZOLE 40 MG TABLET PO SCH (08:38)
[2019-09-24] MEDS: FUROSEMIDE 80 MG TAB PO SCH ×2 (08:38→16:02)
[2019-09-24] MEDS: ASCORBIC ACID 500 MG TAB PO SCH (08:38)
[2019-09-24] MEDS: METOPROLOL TARTRATE 50 MG TAB PO SCH (08:38)
[2019-09-24] MEDS: ASPIRIN 81 MG PO SCH (08:38)
[2019-09-24] MEDS: ACETAMINOPHEN TAB 325 MG TAB PO SCH ×2 (08:39→15:26)
[2019-09-24] MEDS: INSULIN DETEMIR (LEVEMIR) 100 UNIT/ML SYR SQ SCH (08:39)
[2019-09-24] MEDS ORDERED: MIDODRINE 5 MG TAB PO SCH (09:00)
[2019-09-24] MEDS ORDERED: SEVELAMER 800 MG TAB PO PRN (09:00)
[2019-09-24 09:04] LABS: Albumin 3.6 g/dL (3.5-5.0); Calcium 10.4 mg/dL (8.4-10.2); Potassium 4.8 mmol/L (3.5-5.1); Total Bilirubin 0.5 mg/dL (0.2-1.3); Total Protein 6.6 g/dL (6.3-8.2)
[2019-09-24 09:09] LABS: INR 3.2 (<1.2); Prothrombin Time 31.3 sec (9.0-12.0)
--- NOTE | 2019-09-24 09:14 | US ---
EXAMINATION TYPE: US abdomen complete DATE OF EXAM: 09/24/2019 COMPARISON: NONE CLINICAL HISTORY: abdominal pain, pancreatitis. Pancreatitis, cholecystectomy EXAM MEASUREMENTS: Liver Length: 16.9 cm Gallbladder Wall: Surgically absent CBD: 0.5 cm Spleen: 9.7 cm Right Kidney: 10.9 x 3.8 x 4.4 cm Left Kidney: 10.1 x 5.2 x 4.7 cm Technical limitations due to patient's body habitus and patient unable to rotate from supine positi on Pancreas: Head and body and proximal tail of pancreas visualized is normal. No suspicious hypointens ity is evident. No discrete masses are evident. No dilated duct is evident. Liver: limited evaluation, visualized portions appear wnl Gallbladder: Surgically absent Evidence for sonographic Castaneda's sign: no CBD: appears wnl Spleen: appears wnl Right Kidney: multiple cystic areas, largest = 2.3 x 2.0 x 2.0cm Left Kidney: multiple cystic areas with largest = 4.9 x 5.5 x 4.7cm Upper IVC: wnl Abd Aorta: distal/bifurcation obscured IMPRESSION: 1. Multiple bilateral renal cysts. 2. Visualized pancreas appears normal. Distal tail of pancreas obscured by bowel gas.
[2019-09-24 09:19] LABS: Basophils # (A) 0.1 k/uL (0-0.2); Basophils % (A) 1 %; Eosinophils # (A) 0.2 k/uL (0-0.7); Eosinophils % (A) 3 %; HCT 35.8 % (34.0-46.0); HGB 11.3 gm/dL (11.4-16.0); Lymphocytes # (A) 1.2 k/uL (1.0-4.8); Lymphocytes % (A) 17 %; MCH 33.8 pg (25.0-35.0); MCHC 31.6 g/dL (31.0-37.0); MCV 106.9 fL (80.0-100.0); Macrocytosis Marked; Mean Platelet Volume 7.4; Monocytes # (A) 0.7 k/uL (0-1.0); Monocytes % (A) 10 %; Neutrophils # (A) 4.4 k/uL (1.3-7.7); Neutrophils % (A) 66 %; Platelet Count 253 k/uL (150-450); RBC 3.35 m/uL (3.80-5.40); RDW 15.4 % (11.5-15.5); WBC 6.7 k/uL (3.8-10.6)
[2019-09-24 09:36] LABS: Poikilocytosis (M) Present
[2019-09-24 11:39] LABS: Glucose,Whole Blood 132 mg/dL (75-99)
[2019-09-24] MEDS: SEVELAMER 800 MG TAB PO SCH ×2 (12:22→17:19)
[2019-09-24] MEDS ORDERED: CEFDINIR 300 MG CAP PO STA (12:40)
--- NOTE | 2019-09-24 12:42 | P.DS ---
Providers Date of admission: 09/23/19 05:12 Expected date of discharge: 09/24/19 Attending physician: Cortez Harman Consults: 09/23/19 05:13 Consult Physician Routine Consulting Provider: Julieta Luevano Consult Reason/Comments: dialysis patient Do you want consulting provider notified?: Yes 09/23/19 11:00 Consult Physician Routine Consulting Provider: Alison Orellana Consult Reason/Comments: Abdominal pain Do you want consulting provider notified?: Yes 09/23/19 13:25 Consult Physician Routine Consulting Provider: Roe Dunn Consult Reason/Comments: pancreatitis Do you want consulting provider notified?: Yes Primary care physician: Jasper Meredgar [facility] Course: Chief Complaint: Abdominal pain History of presenting complaint: This is a very pleasant 74-year-old patient of Dr. Avitia. Chronic stable medical conditions include atrial fibrillation with a permanent pacemaker, asthma, questionable CHF, diabetes, DVT, GERD, hyperlipidemia, hypertension, osteoarthritis, end-stage kidney disease on hemodialysis Tuesdays. Patient is a resident of medical care facility. Has a deep POA. Patient presented with vomiting 3 or 4 times yesterday multiple episodes of diarrhea, loose with abdominal pain. No fever no chills. No blood in the stool. Patient had mild elevation of amylase and lipase. Did tolerate some diet this morning. Still having upper abdominal tenderness. Waiting to have for dialysis today. Admitted with-acute pancreatitis. Acute UTI. Diet was scaled back. Patient did get dialyzed. Started and tolerated clear liquids. Seen by general surgery and nephrology. Patient will get 1 dose of Omnicef after hemodialysis today. She received IV ceftriaxone here. Today-doing well. No abdominal pain. No nausea vomiting. Diet advanced. Consultation: Dr. Luevano from nephrology Dr. Orellana from general surgery Physical examination: VITAL SIGNS: 98.4, 75, 18, 146/58, 94% on room air GENERAL: BMI 40.7, sitting up in a chair, comfortable EYES: Pupils equal. Conjunctiva normal. HEENT: External appearance of nose and ears normal, oral cavity grossly normal. NECK: JVD unable to assess; masses not palpable. HEART: Heart sounds are muffled,; some edema . LUNGS: Respiratory rate normal; decreased breath sounds. ABDOMEN: Soft, no tenderness, no guarding or rigidity liver spleen not palpable, no masses palpable. Bowel sounds present PSYCH: Awake, answering questions. INVESTIGATIONS, reviewed in the clinical context: White count 6.7 hemoglobin 11.3 high 90.2 potassium 4.8 creatinine 7.46 Previous testing White count 9.9 hemoglobin 12.6 platelets 289 INR 3.7 potassium 4.8 bun 60 creatinine 8.85 Amylase 202 lipase 95 UA positive for leukoesterase, WBC Computed tomography scan of the abdomen reported from the other institution- unremarkable Assessment: -Acute pancreatitis, idiopathic, POA -End-stage kidney disease on hemodialysis Tuesdays, having missed just yesterday -Acute UTI with cystitis, POA, cultures negative -Severe tricuspid regurgitation secondary to severe secondary pulmonary hypertension -Persistent atrial fibrillation with a permanent pacemaker in place -Diabetes mellitus type 2, chronically on insulin -GERD -Hyperlipidemia -Essential hypertension -Primary osteoarthritis -Chronic gait dysfunction at the baseline uses a walker -Kamar Ortiz is patient's DPOA and caregiver Disposition: [facility] Patient Condition at Discharge: Fair Plan - Discharge Summary New Discharge Prescriptions: No Action Ezetimibe [Zetia] 10 mg PO HS Metoprolol Tartrate [Lopressor] 50 mg PO BID Sevelamer [Renvela] 800 mg PO DIRECTED Ascorbic Acid [Vitamin C] 500 mg PO DAILY Cinnamon Bark [Cinnamon] 1,000 mg PO BID [place]-3/Dha/Epa/Fish Oil [Fish Oil 500 mg Softgel] 1 cap PO DAILY Vitamin E (Dl,Tocopheryl Acet) [Vitamin E] 400 unit PO DAILY Aspirin 81 mg PO BID Sevelamer [Renvela] 2,400 mg PO DIRECTED Omeprazole 20 mg PO DAILY Midodrine HCl [ProAmatine] 10 mg PO TUTHSA Fluticasone Nasal [place] [Flonase Nasal [place]] 1 spr EA NOSTRIL DAILY Bisacodyl 10 mg RECTAL DAILY PRN PRN Reason: Constipation Warfarin Sodium [Coumadin] 4 mg PO DAILY Docusate [Colace] 100 mg PO BID Insulin Glargine,Hum.rec.anlog [Basaglar Kwikpen U-100] 50 unit SQ DAILY Exenatide Microspheres [Bydureon Pen] 2 mg SQ TU Acetaminophen Tab [Tylenol] 325 mg PO TID Acetaminophen Tab [Tylenol] 650 mg PO Q6H PRN PRN Reason: Pain Or Fever > 100.5 traMADol HCL 50 mg PO Q6H PRN PRN Reason: Pain Furosemide [Lasix] 80 mg PO BID INSULIN ASPART (NovoLOG) [NovoLOG (formulary)] See Protocol SQ ACHS Discharge Medication List Ezetimibe [Zetia] 10 mg PO HS 12/22/17 [History] Metoprolol Tartrate [Lopressor] 50 mg PO BID 12/22/17 [History] Sevelamer [Renvela] 800 mg PO DIRECTED 07/27/18 [History] Ascorbic Acid [Vitamin C] 500 mg PO DAILY 08/19/18 [History] Aspirin 81 mg PO BID 02/10/19 [History] Cinnamon Bark [Cinnamon] 1,000 mg PO BID 02/10/19 [History] [place]-3/Dha/Epa/Fish Oil [Fish Oil 500 mg Softgel] 1 cap PO DAILY 02/10/19 [History] Vitamin E (Dl,Tocopheryl Acet) [Vitamin E] 400 unit PO DAILY 02/10/19 [History] Acetaminophen Tab [Tylenol] 325 mg PO TID 09/23/19 [History] Acetaminophen Tab [Tylenol] 650 mg PO Q6H PRN 09/23/19 [History] Bisacodyl 10 mg RECTAL DAILY PRN 09/23/19 [History] Docusate [Colace] 100 mg PO BID 09/23/19 [History] Exenatide Microspheres [Bydureon Pen] 2 mg SQ TU 09/23/19 [History] Fluticasone Nasal [place] [Flonase Nasal [place]] 1 spr EA NOSTRIL DAILY 09/23/19 [History] Furosemide [Lasix] 80 mg PO BID 09/23/19 [History] INSULIN ASPART (NovoLOG) [NovoLOG (formulary)] See Protocol SQ [facility] 09/23/19 [History] Insulin Glargine,Hum.rec.anlog [Basaglar Kwikpen U-100] 50 unit SQ DAILY 09/23/19 [History] Midodrine HCl [ProAmatine] 10 mg PO TUTHSA 09/23/19 [History] Omeprazole 20 mg PO DAILY 09/23/19 [History] Sevelamer [Renvela] 2,400 mg PO DIRECTED 09/23/19 [History] Warfarin Sodium [Coumadin] 4 mg PO DAILY 09/23/19 [History] traMADol HCL 50 mg PO Q6H PRN 09/23/19 [History] Follow up Appointment(s)/Referral(s): Marc Avitia MD [Primary Care Provider] - 1-2 days
--- NOTE | 2019-09-24 13:31 | P.PN ---
Subjective Progress Note Date: 09/24/19 CHIEF COMPLAINT: Pancreatitis HISTORY OF PRESENT ILLNESS: Patient examined this morning at the bedside. She denies abdominal pain. Denies nausea or vomiting. She is tolerating liquid diet. Amylase 123. Lipase 354. Abdominal ultrasound completed yesterday re veals multiple bilateral renal cyst. Visualized pancreas appears normal. Distal tail of pancreas obscured by bowel gas. PHYSICAL EXAM: VITAL SIGNS: Currently stable. GENERAL: Well-developed in no acute distress. HEENT: No sclera icterus. Extraocular movements grossly intact. Moist buccal mucosa. Head is atraumatic, normocephalic. Hears conversational speech. No nasal d rainage. NECK: Supple without lymphadenopathy. CHEST: Non-labored respirations and equal bilateral excursions. CARDIOVASCULAR: Irregular rhythm. Palpable 2+ radial pulses. ABDOMEN: Soft. Nondistended. Mild tenderness on palpation of epigastric region MUSCULOSKELETAL: No clubbing, cyanosis or edema. NEUROLOGIC: No focal or lateralizing signs. Cranial nerves II through XII grossly intact. PSYCH: Appropriate affect. Alert and oriented to person, place and time. SKIN: Well perfused. Good skin turgor. ASSESSMENT: 1. Acute pancreatitis 2. History of cholecystectomy PLAN: No surgical intervention recommended as patient has history of cholecystectomy GI consult for further evaluation and pancreatitis Continue diet as tolerated We will sign off. Please reconsult if needed. Nurse practitioner note has been reviewed by physician. Signing provider agrees with the documented findings, assessment, and plan of care. Objective - Vital Signs Vital signs: Vital Signs Temp 98.4 F 09/24/19 07:00 Pulse 75 09/24/19 07:00 Resp 18 09/24/19 07:00 BP 146/58 09/24/19 07:00 Pulse Ox 94 L 09/24/19 07:00 Intake & Output 09/23/19 09/24/19 09/24/19 18:59 06:59 18:59 Intake Total 50 Output Total 1000 Balance -1000 50 Weight 104.326 kg Intake: IV 50 [id number] 1 gm In 50 Sodium Chloride 0.9% 50 ml @ 100 mls/hr IVPB Q24HR GILL Rx#:[id number] Output: Hemodialysis 1000 Other: Voiding Method Bedside Commode Bedside Commode # Voids 2 1 # Bowel Movements 2 - Labs CBC & Chem 7: 09/24/19 08:15 09/24/19 08:15 Labs: Abnormal Lab Results - Last 24 Hours (Table) 09/23/19 09/23/19 09/24/19 Range/Units 16:44 21:04 08:15 RBC 3.35 L (3.80-5.40) m/uL Hgb 11.3 L (11.4-16.0) gm/dL MCV 106.9 H (80.0-100.0) fL Macrocytosis Marked A PT (9.0-12.0) sec INR (<1.2) Sodium (137-145) mmol/L Chloride (98-107) mmol/L BUN (7-17) mg/dL Creatinine (0.52-1.04) mg/dL POC Glucose (mg/dL) 105 H 100 H (75-99) mg/dL Calcium (8.4-10.2) mg/dL Alkaline Phosphatase (38-126) U/L Triglycerides (<150) mg/dL HDL Cholesterol (40-60) mg/dL Amylase (30-110) U/L Lipase (23-300) U/L 09/24/19 09/24/19 09/24/19 Range/Units 08:15 08:15 11:37 RBC (3.80-5.40) m/uL Hgb (11.4-16.0) gm/dL MCV (80.0-100.0) fL Macrocytosis PT 31.3 H (9.0-12.0) sec INR 3.2 H (<1.2) Sodium 132 L (137-145) mmol/L Chloride 96 L (98-107) mmol/L BUN 49 H (7-17) mg/dL Creatinine 7.46 H* (0.52-1.04) mg/dL POC Glucose (mg/dL) 132 H (75-99) mg/dL Calcium 10.4 H (8.4-10.2) mg/dL Alkaline Phosphatase 174 H (38-126) U/L Triglycerides 225 H (<150) mg/dL HDL Cholesterol 25 L (40-60) mg/dL Amylase 123 H (30-110) U/L Lipase 354 H (23-300) U/L Microbiology - Last 24 Hours (Table) 09/23/19 10:23 Urine Culture - Final Urine,Clean Catch
[2019-09-24 15:23] VITALS: BP 141/89; PULSE 78; TEMP 98.1
[2019-09-24 16:58] LABS: Glucose,Whole Blood 103 mg/dL (75-99)
[2019-09-24] MEDS ORDERED: WARFARIN 2 MG TAB PO ONE (18:00)
--- NOTE | 2019-09-24 23:02 | PN ---
PROGRESS NOTE Patient is seen for followup for end-stage renal disease. She is normally maintained on a Saturday, , Saturday schedule. Patient was admitted with nausea, vomiting. This has improved. She was able to eat today. Patient was dialyzed this morning. We did not remove any fluid. Blood pressure had been on the lower side during treatment but improved. PHYSICAL EXAMINATION: On examination today, blood pressure was 123/61, heart rate 71 per minute. Patient is afebrile. EXAMINATION OF THE HEART: S1 and S2. EXAMINATION OF LUNGS: Bilateral breath sounds are heard. ABDOMEN: Soft, non-tender, morbidly obese. Examination of lower extremities shows no edema. HUB BANDER exam is grossly intact. LABS: Sodium 132, potassium of 4.8, BUN 49, creatinine 7.46. ASSESSMENT: 1. End-stage renal disease, on hemodialysis on a Saturday, , Saturday schedule. 2. Mild pancreatitis, now improved. Patient is able to tolerate oral intake. 3. Mild hypercalcemia. Will adjust the mineral medications at the dialysis unit. Patient is maintained on a non-calcium binder. I will hold off on the Rocaltrol that she might be getting at the dialysis unit. PLAN: Patient can be discharged from nephrology standpoint. Follow up as outpatient for hemodialysis on Saturday. MMODL / IJN: [id number] /
== END 2019-09-24 17:32 | DRG 438 ==
LOC: EC 02:25 → 6NMEDSUR 05:12
PROVIDERS: ADMIT Hospitalist; ATTEND Hospitalist
PROC: 5A1D70Z Performance of Urinary Filtration, Intermittent, Less than 6 Hours Per Day (ICD-10-PCS; principal; 2019-09-23)
DX: K85.00 Idiopathic acute pancreatitis without necrosis or infection (principal); N18.6 End stage renal disease; I13.2 Hypertensive heart and chronic kidney disease with heart failure and with stage 5 chronic kidney disease, or end stage renal disease; Z68.41 Body mass index [BMI] 40.0-44.9, adult; I48.19 Other persistent atrial fibrillation; E66.01 Morbid (severe) obesity due to excess calories; E11.22 Type 2 diabetes mellitus with diabetic chronic kidney disease; E78.5 Hyperlipidemia, unspecified; I07.1 Rheumatic tricuspid insufficiency; I27.29 Other secondary pulmonary hypertension; E83.52 Hypercalcemia; M19.91 Primary osteoarthritis, unspecified site; N30.90 Cystitis, unspecified without hematuria; R26.9 Unspecified abnormalities of gait and mobility; K21.9 Gastro-esophageal reflux disease without esophagitis; J45.909 Unspecified asthma, uncomplicated; Z99.2 Dependence on renal dialysis; Z95.0 Presence of cardiac pacemaker; Z90.49 Acquired absence of other specified parts of digestive tract; Z86.73 Personal history of transient ischemic attack (TIA), and cerebral infarction without residual deficits; Z86.718 Personal history of other venous thrombosis and embolism; Z82.49 Family history of ischemic heart disease and other diseases of the circulatory system; Z79.899 Other long term (current) drug therapy; Z79.82 Long term (current) use of aspirin; Z79.4 Long term (current) use of insulin; Z79.01 Long term (current) use of anticoagulants; Z90.89 Acquired absence of other organs; Z98.890 Other specified postprocedural states
CPT/HCPCS: 36415; 76700; 80053; 80061; 81001; 82150; 83036; 83690; 84484; 85025; 85610; 87086; 90935; 96374; 99285

== ENCOUNTER 2020-05-10 18:14 | Inpatient (IN) | payer MEDICARE, OTHER ==
[2020-05-10] MEDS ORDERED: LORazepam 2 MG/ML INJ IV STA (18:45)
--- NOTE | 2020-05-10 19:04 | ED ---
General Adult HPI - General Chief complaint: Urogenital Stated complaint: altered/UTI Time Seen by Provider: 05/10/20 18:14 Source: patient, RN notes reviewed Mode of arrival: EMS Limitations: no limitations - History of Present Illness Initial comments: This is a 75-year-old female who was transferred from [facility] she has of history of multiple medical issues including dialysis who currently is had increased confusion for past couple days. She had dialysis earlier today and was noted have some increased confusion. She was taken to the emergency department at [facility] and worked up found have what appear to be a urinary tract infection CT showed nothing that appear to be acute. She was sent here for further evaluation keep her and had been started on Augmentin for suspected UTI she was apparently about chcf through her dialysis treatment when she was sent to the emergency department at that time. Patient was noted to have a lactic acid of 2.0 white blood cell count was elevated with evidence of left shift 14.48 white cells neutrophils 80.8 renal function BUN 32 creatinine 5.4 glucose was 225 with the sending facility. UA done at the sending facility showed 50-100 white cells though was nitrate negative leukocyte Estrace was positive repeat lactic acid was 2.2 - Related Data Home Medications Medication Instructions Recorded Confirmed Ezetimibe [Zetia] 10 mg PO HS@209912/22/17 05/10/20 Metoprolol Tartrate [Lopressor] 50 mg PO SUMOWEFR@0700,209912/22/17 05/10/20 Ascorbic Acid [Vitamin C] 500 mg PO DAILY@1700 08/19/18 05/10/20 Aspirin 81 mg PO DAILY@0700 02/10/19 05/10/20 Cinnamon Bark [Cinnamon] 1,000 mg PO BID@0700,209902/10/19 05/10/20 [place]-3/Dha/Epa/Fish Oil [Fish Oil 1 cap PO DAILY@1700 02/10/19 05/10/20 500 mg Softgel] Acetaminophen Tab [Tylenol] 325 mg PO TID@0800,1500,2099 MDD 3 09/23/19 05/10/20 GRAMS/24HRS Fluticasone Nasal [place] [Flonase 1 spr EA NOSTRIL DAILY PRN 09/23/19 05/10/20 Nasal [place]] Furosemide [Lasix] 80 mg PO SUMOWEFR@0700,1300 09/23/19 05/10/20 INSULIN ASPART (NovoLOG) [NovoLOG See Protocol SQ ACHS 09/23/19 05/10/20 (formulary)] Midodrine HCl [ProAmatine] 10 mg PO TUTHSA 09/23/19 05/10/20 Omeprazole 20 mg PO DAILY@0700 09/23/19 05/10/20 bisacodyL [Bisacodyl] 10 mg RECTAL Q48H PRN 09/23/19 05/10/20 Acetaminophen Tab [Tylenol] 325 mg PO Q6HR PRN MDD 3 05/10/20 05/10/20 GRAMS/24HRS Amoxic-Pot Clav 500-125 mg 1 tab PO DAILY@0900,2100 05/10/20 05/10/20 [Augmentin 500-125 mg] Apixaban [Eliquis] 2.5 mg PO BID@0700,1700 05/10/20 05/10/20 Bydureon Bcise 2mg/0.85ml 2 mg SQ WE 05/10/20 05/10/20 Calcium Carbonate 500 mg PO TID@0700,1500,2300 05/10/20 05/10/20 Cholecalciferol [Vitamin D3 (25 4,000 unit PO DAILY@1700 05/10/20 05/10/20 Mcg = 1000 Iu)] Furosemide [Lasix] 80 mg PO TUTHSA@1500 05/10/20 05/10/20 Hydrocortisone Cream 1 applic TOPICAL Q8H PRN 05/10/20 05/10/20 [Hydrocortisone 2.5% Cream] Insulin Glargine,Hum.rec.anlog 25 unit SQ DAILY@0700 05/10/20 05/10/20 [Basaglar Kwikpen U-100] Magnesium Hydroxide [Milk of 2,400 mg PO Q24H PRN 05/10/20 05/10/20 Magnesia] Metoprolol Tartrate [Lopressor] 50 mg PO TUTHSA@2100 05/10/20 05/10/20 Nystatin 100,000Unit/gm Cream 1 applic TOPICAL DAILY 05/10/20 05/10/20 [Mycostatin Cream] Nystatin 100,000Unit/gm Cream 1 applic TOPICAL TID 05/10/20 05/10/20 [Mycostatin Cream] Ondansetron [Zofran] 4 mg PO Q4H PRN 05/10/20 05/10/20 Renvela Packet 0.8gm 3 pack PO TID@0700,1200,1700 05/10/20 05/10/20 Leach Muscle Warming [place] 1 applic TOPICAL Q4H PRN 05/10/20 05/10/20 Leach Muscle Warming [place] 1 applic TOPICAL TID 05/10/20 05/10/20 diphenhydrAMINE [Benadryl] 25 mg PO Q8H PRN 05/10/20 05/10/20 traMADol HCL 50 mg PO BID@0700,1500,2100 05/10/20 05/10/20 traMADol HCL 50 mg PO Q24H PRN 05/10/20 05/10/20 Allergies Allergy/AdvReac Type Severity Reaction Status Date / Time lisinopril Allergy Itching Verified 09/23/19 10:19 Fpeglry-Zcd-Vom Reductase Allergy Itching Verified 09/23/19 10:19 Inhibitor Review of Systems ROS Statement: Those systems with pertinent positive or pertinent negative responses have been documented in the HPI. ROS Other: All systems not noted in ROS Statement are negative. Past Medical History Past Medical History: Atrial Fibrillation, Asthma, Heart Failure, CVA/TIA, Diabetes Mellitus, Deep Vein Thrombosis (DVT), Eye Disorder, GERD/Reflux, Hyperlipidemia, Hypertension, Osteoarthritis (OA), Renal Disease Additional Past Medical History / Comment(s): TIA 2018; HEMODIALYSIS //SAT History of Any Multi-Drug Resistant Organisms: None Reported Past Surgical History: Adenoidectomy, Appendectomy, Cholecystectomy, Pacemaker, Tonsillectomy Past Anesthesia/Blood Transfusion Reactions: No Reported Reaction Type of Cardiac Device: Permanent Pacemaker Device Placement Date:: 2016 Past Psychological History: No Psychological Hx Reported Past Alcohol Use History: None Reported Past Drug Use History: None Reported - Past Family History Father Family Medical History: Myocardial Infarction ([place]) Additional Family Medical History / Comment(s): RHEUMATIC FEVER General Exam - General Exam Comments Initial Comments: A well-developed well-nourished awake and confused female Limitations: no limitations General appearance: alert, anxious Head exam: Present: atraumatic, normocephalic, normal inspection Eye exam: Present: normal appearance, PERRL, EOMI. Absent: scleral icterus, conjunctival injection, periorbital swelling ENT exam: Present: normal exam, mucous membranes moist Neck exam: Present: normal inspection, full ROM, other (Genitourinary bruits). Absent: tenderness, meningismus, lymphadenopathy Respiratory exam: Present: normal lung sounds bilaterally. Absent: respiratory distress, wheezes, rales, rhonchi, stridor Cardiovascular Exam: Present: regular rate, normal rhythm, normal heart sounds. Absent: systolic murmur, diastolic murmur, rubs, gallop, clicks GI/Abdominal exam: Present: soft, normal bowel sounds. Absent: distended, tenderness, guarding, rebound, rigid Extremities exam: Present: normal inspection, full ROM, normal capillary refill. Absent: tenderness, pedal edema, joint swelling, calf tenderness Back exam: Present: normal inspection Neurological exam: Present: alert, altered, CN II-XII intact Psychiatric exam: Present: flat affect Skin exam: Present: warm, dry, intact, normal color. Absent: rash Course Vital Signs 05/10/20 05/10/20 18:21 20:00 Temperature 98.1 F Pulse Rate 75 Respiratory 18 18 Rate Blood Pressure 112/52 108/61 O2 Sat by Pulse 96 Oximetry Medical Decision Making - Medical Decision Making I did review the imaging from the other facility as well as lab work and paperwork provided. I did discuss case with Dr. Pino. Patient be admitted for treatment of urinary tract infection altered mental status. She also has a history of Failure. - Lab Data Lab Results 05/10/20 05/10/20 Range/Units 19:30 19:30 Plasma Lactic Acid [place] 1.4 (0.7-2.0) mmol/L Urine Opiates Screen Not Detected (NotDetected) Ur Oxycodone Screen Not Detected (NotDetected) Urine Methadone Screen Not Detected (NotDetected) Ur Propoxyphene Screen Not Detected (NotDetected) Ur Barbiturates Screen Not Detected (NotDetected) U Tricyclic Antidepress Not Detected (NotDetected) Ur Phencyclidine Scrn Not Detected (NotDetected) Ur Amphetamines Screen Not Detected (NotDetected) U Methamphetamines Scrn Not Detected (NotDetected) U Benzodiazepines Scrn Not Detected (NotDetected) Urine Cocaine Screen Not Detected (NotDetected) U Marijuana (THC) Screen Not Detected (NotDetected) Disposition Clinical Impression: Urinary tract infection, Chronic renal insufficiency, Confusional state Disposition: ADMITTED IP TO THIS HOSP Condition: Fair Referrals: Marc Avitia MD [Primary Care Provider] - 1-2 days
[2020-05-10 20:19] LABS: Amphetamine Screen,Urine Not Detected (NotDetected); Barbiturate Screen,Urine Not Detected (NotDetected); Benzodiazepines Screen,Urine Not Detected (NotDetected); Cocaine Screen,Urine Not Detected (NotDetected); Methadone Screen, Urine Not Detected (NotDetected); Opiate Screen,Urine Not Detected (NotDetected); Oxycodone Screen, Urine Not Detected (NotDetected); Phencyclidine Screen,Urine Not Detected (NotDetected); Tricyclic Antidepressant,Urine Not Detected (NotDetected); Urn Cannabinoid Scrn Not Detected (NotDetected)
[2020-05-10 20:31] LABS: Lactic Acid, Venous 1.4 mmol/L (0.7-2.0)
[2020-05-10] MEDS ORDERED: NALOXONE 0.4 MG/ML 1 ML VIAL IV PRN (21:09)
[2020-05-10] MEDS ORDERED: HYDROmorphone 0.5 MG/0.5 ML SYRINGE IVP PRN (21:09)
[2020-05-10] MEDS ORDERED: [UNRECOGNIZED DRUG - OTHER] TOPICAL PRN (21:11)
[2020-05-10] MEDS ORDERED: ONDANSETRON 4 MG TAB PO PRN (21:11)
[2020-05-10] MEDS ORDERED: diphenhydrAMINE 25 MG CAP PO PRN (21:11)
[2020-05-10] MEDS ORDERED: ACETAMINOPHEN TAB 325 MG TAB PO PRN (21:11)
[2020-05-10] MEDS ORDERED: cefTRIAXone IN SWFI 1,000 MG/10 ML SYRINGE IVP STA (21:13)
[2020-05-10] MEDS ORDERED: [UNRECOGNIZED DRUG - OTHER] TOPICAL SCH (22:00)
[2020-05-10] MEDS: SODIUM CHLORIDE 0.9% 1,000 ML IV SCH (22:35)
[2020-05-11] MEDS: NYSTATIN 100,000UNIT/GM CREAM 30 GM TUBE TOPICAL SCH ×5 (03:15→21:34)
[2020-05-11] MEDS ORDERED: traMADol 50 MG TAB PO SCH (07:00)
[2020-05-11] MEDS: SODIUM CHLORIDE 0.9% 1,000 ML IV SCH (07:07)
[2020-05-11] MEDS: CALCIUM CARBONATE 500 MG CHEWABLE PO SCH ×4 (08:41→21:34)
[2020-05-11] MEDS ORDERED: PANTOPRAZOLE 40 MG/10 ML VIAL IV SCH (09:00)
[2020-05-11] MEDS ORDERED: MAGNESIUM HYDROXIDE 2,400 MG/10 ML CUP PO PRN (09:00)
[2020-05-11] MEDS ORDERED: bisacodyL 10 MG SUPP RECTAL PRN (09:00)
[2020-05-11 09:34] LABS: Glucose,Whole Blood 131 mg/dL (75-99)
[2020-05-11] MEDS: BYDUREON BCISE SQ SCH (09:37)
[2020-05-11] MEDS: APIXABAN 2.5 MG TABLET PO SCH ×2 (09:40→17:18)
[2020-05-11] MEDS: ASPIRIN 81 MG PO SCH (09:40)
[2020-05-11] MEDS: PANTOPRAZOLE 40 MG TABLET PO SCH (09:41)
[2020-05-11] MEDS: SEVELAMER 800 MG TAB PO SCH ×3 (09:41→17:16)
[2020-05-11] MEDS: FUROSEMIDE 80 MG TAB PO SCH ×2 (09:43→13:07)
[2020-05-11] MEDS: METOPROLOL TARTRATE 50 MG TAB PO SCH ×2 (09:44→21:33)
[2020-05-11] MEDS: INSULIN DETEMIR (LEVEMIR) 100 UNIT/ML SYR SQ SCH (09:45)
[2020-05-11 11:41] LABS: Glucose,Whole Blood 182 mg/dL (75-99)
[2020-05-11] MEDS ORDERED: QUEtiapine 25 MG TAB PO PRN (11:57)
[2020-05-11] MEDS: INSULIN ASPART (NovoLOG) 100 UNIT/ML VIAL SQ SCH ×3 (13:07→21:17)
[2020-05-11 13:29] LABS: HCT 31.5 % (34.0-46.0); HGB 10.5 gm/dL (11.4-16.0); Hypochromasia Slight; MCH 34.5 pg (25.0-35.0); MCHC 33.3 g/dL (31.0-37.0); MCV 103.6 fL (80.0-100.0); Macrocytosis Slight; Mean Platelet Volume 7.8; Platelet Count 243 k/uL (150-450); RBC 3.04 m/uL (3.80-5.40); RDW 14.1 % (11.5-15.5); WBC 9.6 k/uL (3.8-10.6)
[2020-05-11 13:40] LABS: ALT 18 U/L (4-34); AST 29 U/L (14-36); African American GFR (CKD) 6 (>60 ml/min/1.73 sqM); Albumin 3.8 g/dL (3.5-5.0); Alkaline Phosphatase 120 U/L (38-126); Anion Gap 10 mmol/L; Blood Urea Nitrogen 50 mg/dL (7-17); Carbon Dioxide 23 mmol/L (22-30); Chloride 101 mmol/L (98-107); Globulin 3.7 g/dL; Glucose 176 mg/dL (74-99); Non-African American GFR(CKD) 5 (>60 ml/min/1.73 sqM); Phosphorus 5.6 mg/dL (2.5-4.5); Sodium 134 mmol/L (137-145); Total Protein 7.5 g/dL (6.3-8.2)
[2020-05-11 14:03] LABS: Potassium 5.3 mmol/L (3.5-5.1)
--- NOTE | 2020-05-11 14:21 | P.HPIM ---
History of Present Illness Patient is a pleasant 75-year-old female was a transferred from [facility] where she presented with confusion. Patient was undergoing hemodialysis was agitated was confused was the 80 to ER patient the is found to have abnormal urine. Patient had a Hsu catheter now patient is being admitted for urinary tract infection. Patient denied any fever chills nausea vomiting patient is on Benadryl and tramadol at home. Patient doesn't have any fever chills patient appeared to have some leukocytosis as well. Patient doesn't have any pneumonia on x-ray. Patient is alert oriented 1 at this time but pleasant able to answer questions may have had some improvement in her mental status. Urine drug screen is negative. Patient does have history of end-stage renal disease on dialysis dependent Review of Systems All other review of systems is negative most of the review of systems unable to obtain due to her clinical condition Past Medical History Past Medical History: Atrial Fibrillation, Asthma, Heart Failure, CVA/TIA, Diabetes Mellitus, Deep Vein Thrombosis (DVT), Eye Disorder, GERD/Reflux, Hyperlipidemia, Hypertension, Osteoarthritis (OA), Renal Disease Additional Past Medical History / Comment(s): TIA 2018; HEMODIALYSIS //SAT History of Any Multi-Drug Resistant Organisms: None Reported Past Surgical History: Adenoidectomy, Appendectomy, Cholecystectomy, Pacemaker, Tonsillectomy Past Anesthesia/Blood Transfusion Reactions: No Reported Reaction Type of Cardiac Device: Permanent Pacemaker Device Placement Date:: 2016 Past Psychological History: No Psychological Hx Reported Smoking Status: Never smoker Past Alcohol Use History: None Reported Past Drug Use History: None Reported - Past Family History Father Family Medical History: Myocardial Infarction ([place]) Additional Family Medical History / Comment(s): RHEUMATIC FEVER Medications and Allergies Home Medications Medication Instructions Recorded Confirmed Type Ezetimibe [Zetia] 10 mg PO HS@209912/22/17 05/10/20 History Metoprolol Tartrate [Lopressor] 50 mg PO SUMOWEFR@699,209912/22/17 05/10/20 History Ascorbic Acid [Vitamin C] 500 mg PO DAILY@1700 08/19/18 05/10/20 History Aspirin 81 mg PO DAILY@0700 02/10/19 05/10/20 History Cinnamon Bark [Cinnamon] 1,000 mg PO BID@07,209902/10/19 05/10/20 History [place]-3/Dha/Epa/Fish Oil [Fish Oil 1 cap PO DAILY@1700 02/10/19 05/10/20 History 500 mg Softgel] Acetaminophen Tab [Tylenol] 325 mg PO TID@0800,1500,2100 MDD 3 09/23/19 05/10/20 History GRAMS/24HRS Fluticasone Nasal [place] [Flonase 1 spr EA NOSTRIL DAILY PRN 09/23/19 05/10/20 History Nasal [place]] Furosemide [Lasix] 80 mg PO SUMOWEFR@0700,1300 09/23/19 05/10/20 History INSULIN ASPART (NovoLOG) [NovoLOG See Protocol SQ ACHS 09/23/19 05/10/20 History (formulary)] Midodrine HCl [ProAmatine] 10 mg PO TUTHSA 09/23/19 05/10/20 History Omeprazole 20 mg PO DAILY@0700 09/23/19 05/10/20 History bisacodyL [Bisacodyl] 10 mg RECTAL Q48H PRN 09/23/19 05/10/20 History Acetaminophen Tab [Tylenol] 325 mg PO Q6HR PRN MDD 3 05/10/20 05/10/20 History GRAMS/24HRS Amoxic-Pot Clav 500-125 mg 1 tab PO DAILY@0900,2100 05/10/20 05/10/20 History [Augmentin 500-125 mg] Apixaban [Eliquis] 2.5 mg PO BID@0700,1700 05/10/20 05/10/20 History Bydureon Bcise 2mg/0.85ml 2 mg SQ WE 05/10/20 05/10/20 History Calcium Carbonate 500 mg PO TID@0700,1500,2300 05/10/20 05/10/20 History Cholecalciferol [Vitamin D3 (25 4,000 unit PO DAILY@1700 05/10/20 05/10/20 History Mcg = 1000 Iu)] Furosemide [Lasix] 80 mg PO TUTHSA@1500 05/10/20 05/10/20 History Hydrocortisone Cream 1 applic TOPICAL Q8H PRN 05/10/20 05/10/20 History [Hydrocortisone 2.5% Cream] Insulin Glargine,Hum.rec.anlog 25 unit SQ DAILY@0700 05/10/20 05/10/20 History [Basaglar [place]pen U-100] Magnesium Hydroxide [Milk of 2,400 mg PO Q24H PRN 05/10/20 05/10/20 History Magnesia] Metoprolol Tartrate [Lopressor] 50 mg PO TUTHSA@2100 05/10/20 05/10/20 History Nystatin 100,000Unit/gm Cream 1 applic TOPICAL DAILY 05/10/20 05/10/20 History [Mycostatin Cream] Nystatin 100,000Unit/gm Cream 1 applic TOPICAL TID 05/10/20 05/10/20 History [Mycostatin Cream] Ondansetron [Zofran] 4 mg PO Q4H PRN 05/10/20 05/10/20 History Renvela Packet 0.8gm 3 pack PO TID@0700,1200,1700 05/10/20 05/10/20 History Leach Muscle Warming [place] 1 applic TOPICAL Q4H PRN 05/10/20 05/10/20 History Leach Muscle Warming [place] 1 applic TOPICAL TID 05/10/20 05/10/20 History diphenhydrAMINE [Benadryl] 25 mg PO Q8H PRN 05/10/20 05/10/20 History traMADol HCL 50 mg PO BID@0700,1500,2100 05/10/20 05/10/20 History traMADol HCL 50 mg PO Q24H PRN 05/10/20 05/10/20 History Allergies Allergy/AdvReac Type Severity Reaction Status Date / Time lisinopril Allergy Itching Verified 09/23/19 10:19 Nginezv-Jiw-Vrk Reductase Allergy Itching Verified 09/23/19 10:19 Inhibitor Physical Exam Vitals: Vital Signs Temp Pulse Pulse Resp BP BP Pulse Ox 05/11/20 10:20 20 05/11/20 07:00 97.6 F 70 18 139/59 100 05/11/20 05:00 96.7 F L 71 18 130/46 100 05/11/20 00:56 97.6 F 74 18 128/82 98 05/10/20 23:00 70 14 123/40 92 L 05/10/20 22:00 70 14 99/69 05/10/20 21:00 72 16 106/61 05/10/20 20:00 18 108/61 05/10/20 18:21 98.1 F 75 18 112/52 96 Intake and Output 05/10/20 05/11/20 05/11/20 22:59 06:59 14:59 Intake Total 750 Output Total 100 Balance -100 750 Intake: Intake, IV Titration 400 Amount Sodium Chloride 0.9% 1, 400 000 ml @ 130 mls/hr IV . Q7H42M [facility] Rx#:[id number] Oral 350 Output: Urine 100 Uretheral (Hsu) 100 Other: Voiding Method Indwelling Catheter Weight 113.398 kg 113.398 kg PHYSICAL EXAMINATION: GENERAL: The patient is alert and oriented x1 but pleasant and following commands, not in any acute distress. Well developed, well nourished. HEENT: Pupils are round and equally reacting to light. EOMI. No scleral icterus. No conjunctival pallor. Normocephalic, atraumatic. No pharyngeal erythema. No thyromegaly. CARDIOVASCULAR: S1 and S2 present. No murmurs, rubs, or gallops. PULMONARY: Chest is clear to auscultation, no wheezing or crackles. ABDOMEN: Soft, nontender, nondistended, normoactive bowel sounds. No palpable organomegaly. MUSCULOSKELETAL: No joint swelling or deformity. EXTREMITIES: No cyanosis, clubbing, or pedal edema. NEUROLOGICAL: Gross neurological examination did not reveal any focal deficits. SKIN: No rashes. Results CBC & Chem 7: 05/11/20 12:40 05/11/20 12:40 Labs: Abnormal Lab Results - Last 24 Hours (Table) 05/11/20 05/11/20 05/11/20 Range/Units 09:33 11:38 12:40 RBC 3.04 L (3.80-5.40) m/uL Hgb 10.5 L (11.4-16.0) gm/dL Hct 31.5 L (34.0-46.0) % MCV 103.6 H (80.0-100.0) fL Sodium (137-145) mmol/L Potassium (3.5-5.1) mmol/L BUN (7-17) mg/dL Creatinine (0.52-1.04) mg/dL Glucose (74-99) mg/dL POC Glucose (mg/dL) 131 H 182 H (75-99) mg/dL Phosphorus (2.5-4.5) mg/dL 05/11/20 Range/Units 12:40 RBC (3.80-5.40) m/uL Hgb (11.4-16.0) gm/dL Hct (34.0-46.0) % MCV (80.0-100.0) fL Sodium 134 L (137-145) mmol/L Potassium 5.3 H (3.5-5.1) mmol/L BUN 50 H (7-17) mg/dL Creatinine 6.86 H (0.52-1.04) mg/dL Glucose 176 H (74-99) mg/dL POC Glucose (mg/dL) (75-99) mg/dL Phosphorus 5.6 H (2.5-4.5) mg/dL Thrombosis Risk Factor Assmnt - Choose All That Apply Each Risk Factor Represents 3 Points: Age 75 years or older Thrombosis Risk Factor Assessment Total Risk Factor Score: 3 Thrombosis Risk Factor Assessment Level: Moderate Risk Assessment and Plan Plan: Altered mental status encephalopathy may be toxic encephalopathy from either UTI medications Benadryl and will be held at tramadol will be cut down to daily when necessary. Patient will be continued on Rocephin 1 g daily. We will await urine cultures. -Atrial fibrillation presently rate controlled probably paroxysmal A. fib patient is on Eliquis which will be continued -DVT in the past - type 2 diabetes mellitus -Gastroesophageal reflux disease - hyperlipidemia -Hypertension -Congestive heart failure chronic diastolic dysfunction presently not in acute e xacerbation -Severe pulmonary hypertension doesn't have any symptom pedal edema and JVD at this time -End-stage renal disease hemodialysis dependent nephrology is consulted. Patient probably has diabetic nephropathy The rest of the chronic medical problems patient will be resumed on appropriate home medications
[2020-05-11 16:47] LABS: Glucose,Whole Blood 95 mg/dL (75-99)
[2020-05-11] MEDS ORDERED: NON FORMULARY DRUG (Omega-3/Dha/Epa/Fish Oil [Fish Oil 500 Mg Softgel] 1 EACH Capsule) PO SCH (17:00)
[2020-05-11] MEDS: CHOLECALCIFEROL 1,000 UNIT TAB PO SCH (17:16)
[2020-05-11] MEDS: ASCORBIC ACID 500 MG TAB PO SCH (17:18)
[2020-05-11 20:32] LABS: Glucose,Whole Blood 119 mg/dL (75-99)
[2020-05-11 20:43] LABS: Hemoglobin A1C 6.4 % (4.0-6.0)
[2020-05-11] MEDS ORDERED: FAMOTIDINE 20 MG TAB PO SCH (21:00)
[2020-05-11] MEDS: EZETIMIBE 10 MG TAB PO SCH (21:33)
[2020-05-12] MEDS ORDERED: VANCOMYCIN IV PER PHARMACY 1 EACH MISC MISCELLANE PRN (06:22)
[2020-05-12 06:58] LABS: HGB 10.1 gm/dL (11.4-16.0); Hypochromasia Slight; MCH 33.1 pg (25.0-35.0); MCHC 31.5 g/dL (31.0-37.0); MCV 105.3 fL (80.0-100.0); Macrocytosis Moderate; Mean Platelet Volume 7.4; Platelet Count 282 k/uL (150-450); RBC 3.04 m/uL (3.80-5.40); RDW 14.6 % (11.5-15.5); WBC 9.2 k/uL (3.8-10.6)
[2020-05-12 07:27] LABS: Glucose,Whole Blood 108 mg/dL (75-99)
[2020-05-12] MEDS: INSULIN ASPART (NovoLOG) 100 UNIT/ML VIAL SQ SCH ×4 (07:52→20:55)
[2020-05-12] MEDS ORDERED: VANCOMYCIN 1,750 MG in SODIUM CHLORIDE 0.9% 500 ML 500 ML IVPB ONE (08:00)
[2020-05-12] MEDS ORDERED: FAMOTIDINE 20 MG TAB PO SCH (09:00)
[2020-05-12 09:25] LABS: African American GFR (CKD) 6.4 (60.0-200.0); Anion Gap 14.8 mmol/L (4.00-12.00); BUN/Creat Ratio 8.53 Ratio (12.00-20.00); Calcium 9.2 mg/dL (8.7-10.3); Carbon Dioxide 22.2 mmol/L (21.6-31.8); Non-African American GFR(CKD) 5.5 (60.0-200.0); Potassium 4.9 mmol/L (3.5-5.5)
--- NOTE | 2020-05-12 11:13 | P.PN ---
Subjective Patient was admitted with agitation is better to have urinary tract infection although patient is found to be bacteremic with staph aureus probable source of infection being her dialysis catheter which was put in a while ago. We'll obtain cultures from the dialysis catheter as well as from periphery infectious disease will be consulted patient patient is alert oriented 3 today. Patient was started on IV vancomycin. Patient is undergoing hemodialysis today. Patient is bit volume overloaded this is expected to improve with the hemodialysis. Her mental status significant improved. She is also on Rocephin which will be discontinued. I do not believe patient has UTI but does have bacteremia and sepsis secondary to staph aureus and possible source being the dialysis catheter. Constitutional: Denied any fatigue denied any fever. Cardio vascular: denied any chest pain, palpitations Gastrointestinal denied any nausea vomiting Pulmonary: Denied any shortness of breath cough Neurologic denied any new focal deficits All inpatient medications were reviewed and appropriate changes in these medications as dictated in the interval history and assessment and plan. Objective - Vital Signs Vital signs: Vital Signs Temp 97.7 F 05/12/20 07:00 Pulse 76 05/12/20 08:24 Resp 20 05/12/20 07:00 BP 122/78 05/12/20 07:00 Pulse Ox 98 05/12/20 07:00 Intake & Output 05/11/20 05/12/20 05/12/20 18:59 06:59 18:59 Intake Total 930 Output Total 400 400 Balance 530 -400 Intake: Intake, IV Titration 400 Amount Sodium Chloride 0.9% 1, 400 000 ml @ 130 mls/hr IV . Q7H42M [facility] Rx#:[id number] Oral 530 Output: Urine 400 400 Other: Voiding Method Indwelling Catheter Indwelling Catheter Indwelling Catheter - Exam PHYSICAL EXAMINATION: GENERAL: The patient is alert and oriented x3, not in any acute distress. Well developed, well nourished. HEENT: Pupils are round and equally reacting to light. EOMI. No scleral icterus. No conjunctival pallor. Normocephalic, atraumatic. No pharyngeal erythema. No thyromegaly. CARDIOVASCULAR: S1 and S2 present. No murmurs, rubs, or gallops. PULMONARY: Chest is clear to auscultation, no wheezing or crackles. And has a dialysis catheter on the right chest ABDOMEN: Soft, nontender, nondistended, normoactive bowel sounds. No palpable organomegaly. MUSCULOSKELETAL: No joint swelling or deformity. EXTREMITIES: No cyanosis, clubbing, or pedal edema. NEUROLOGICAL: Gross neurological examination did not reveal any focal deficits. SKIN: No rashes. - Labs CBC & Chem 7: 05/12/20 06:21 05/12/20 06:21 Labs: Abnormal Lab Results - Last 24 Hours (Table) 05/11/20 05/11/20 05/11/20 Range/Units 11:38 12:40 12:40 RBC 3.04 L (3.80-5.40) m/uL Hgb 10.5 L (11.4-16.0) gm/dL Hct 31.5 L (34.0-46.0) % MCV 103.6 H (80.0-100.0) fL Sodium (137-145) mmol/L Potassium (3.5-5.1) mmol/L Anion Gap (4.00-12.00) mmol/L BUN (7-17) mg/dL Creatinine (0.52-1.04) mg/dL Est GFR (CKD-EPI)AfAm (60.0-200.0) Est GFR (CKD-EPI)NonAf (60.0-200.0) BUN/Creatinine Ratio (12.00-20.00) Ratio Glucose (74-99) mg/dL POC Glucose (mg/dL) 182 H (75-99) mg/dL Hemoglobin A1c 6.4 H (4.0-6.0) % Phosphorus (2.5-4.5) mg/dL 05/11/20 05/11/20 05/12/20 Range/Units 12:40 20:30 06:21 RBC 3.04 L (3.80-5.40) m/uL Hgb 10.1 L (11.4-16.0) gm/dL Hct 32.0 L (34.0-46.0) % MCV 105.3 H (80.0-100.0) fL Sodium 134 L (137-145) mmol/L Potassium 5.3 H (3.5-5.1) mmol/L Anion Gap (4.00-12.00) mmol/L BUN 50 H (7-17) mg/dL Creatinine 6.86 H (0.52-1.04) mg/dL Est GFR (CKD-EPI)AfAm (60.0-200.0) Est GFR (CKD-EPI)NonAf (60.0-200.0) BUN/Creatinine Ratio (12.00-20.00) Ratio Glucose 176 H (74-99) mg/dL POC Glucose (mg/dL) 119 H (75-99) mg/dL Hemoglobin A1c (4.0-6.0) % Phosphorus 5.6 H (2.5-4.5) mg/dL 05/12/20 05/12/20 Range/Units 06:21 07:03 RBC (3.80-5.40) m/uL Hgb (11.4-16.0) gm/dL Hct (34.0-46.0) % MCV (80.0-100.0) fL Sodium (137-145) mmol/L Potassium (3.5-5.1) mmol/L Anion Gap 14.80 H (4.00-12.00) mmol/L BUN 58.0 H (7-17) mg/dL Creatinine 6.8 H (0.52-1.04) mg/dL Est GFR (CKD-EPI)AfAm 6.4 L (60.0-200.0) Est GFR (CKD-EPI)NonAf 5.5 L (60.0-200.0) BUN/Creatinine Ratio 8.53 L (12.00-20.00) Ratio Glucose (74-99) mg/dL POC Glucose (mg/dL) 108 H (75-99) mg/dL Hemoglobin A1c (4.0-6.0) % Phosphorus (2.5-4.5) mg/dL Microbiology - Last 24 Hours (Table) 05/10/20 20:00 Blood Culture Gram Stain - Preliminary Blood Blood Culture - Preliminary Staphylococcus aureus 05/10/20 20:00 Blood Culture - Final Blood Assessment and Plan Plan: Altered mental status encephalopathy may be toxic encephalopathy secondary to sepsis from staph aureus bacteremia no evidence of urinary tract infection at this time. Rocephin will risk and urine patient will continued on vancomycin and repeat blood cultures will be obtained possible source being dialysis catheter site. -Sepsis and bacteremia secondary to staph aureus bacteremia. -Atrial fibrillation presently rate controlled probably paroxysmal A. fib patient is on Eliquis which will be continued -DVT in the past - type 2 diabetes mellitus -Gastroesophageal reflux disease - hyperlipidemia -Hypertension -Congestive heart failure chronic diastolic dysfunction presently in bit exacerbation and a bit volume overloaded and the dialysis is expected to help with this. -Severe pulmonary hypertension doesn't have any symptom pedal edema and JVD at this time -End-stage renal disease hemodialysis dependent nephrology is consulted. Patient probably has diabetic nephropathy The rest of the chronic medical problems patient will be resumed on appropriate home medications
[2020-05-12 12:06] LABS: Glucose,Whole Blood 93 mg/dL (75-99)
[2020-05-12] MEDS: PANTOPRAZOLE 40 MG TABLET PO SCH (12:33)
[2020-05-12] MEDS: CALCIUM CARBONATE 500 MG CHEWABLE PO SCH ×3 (12:33→23:30)
[2020-05-12] MEDS: MIDODRINE 5 MG TAB PO SCH (12:33)
[2020-05-12] MEDS: ASPIRIN 81 MG PO SCH (12:33)
[2020-05-12] MEDS: APIXABAN 2.5 MG TABLET PO SCH ×2 (12:33→17:34)
[2020-05-12] MEDS: INSULIN DETEMIR (LEVEMIR) 100 UNIT/ML SYR SQ SCH (12:34)
[2020-05-12] MEDS: SEVELAMER 800 MG TAB PO SCH ×3 (12:35→17:34)
[2020-05-12] MEDS: NYSTATIN 100,000UNIT/GM CREAM 30 GM TUBE TOPICAL SCH ×4 (12:36→21:52)
[2020-05-12] MEDS: FUROSEMIDE 80 MG TAB PO SCH (14:43)
[2020-05-12 17:17] LABS: Glucose,Whole Blood 122 mg/dL (75-99)
[2020-05-12] MEDS: CHOLECALCIFEROL 1,000 UNIT TAB PO SCH (17:34)
[2020-05-12] MEDS: ASCORBIC ACID 500 MG TAB PO SCH (17:34)
--- NOTE | 2020-05-12 18:19 | CONS ---
CONSULTATION REASON FOR CONSULTATION: End-stage renal disease. HISTORY OF PRESENT ILLNESS: The patient is a 75-year-old female with end-stage renal disease, on hemodialysis on a Saturday, , Saturday schedule. Patient was admitted to the hospital as a transfer from [facility]. Patient was confused. Here her blood cultures are growing MRSA. She has had the PermCath for dialysis for a little bit more than a year. The patient has refused multiple vascular surgery appointments as outpatient. According to the dialysis staff, patient also takes her dressing off the PermCath frequently. No significant nausea or vomiting. No fevers currently. PAST MEDICAL HISTORY: End-stage renal disease, hyperparathyroidism, status post parathyroidectomy, atrial fibrillation, CHF, CVA, TIA, type 2 diabetes, history of DVT, hyperlipidemia, osteoarthritis. PAST SURGICAL HISTORY: Adenoidectomy, appendectomy, cholecystectomy, pacemaker, tonsillectomy, parathyroidectomy, details not clear, permanent pacemaker placement. SOCIAL HISTORY: Negative for smoking, drug abuse or alcohol abuse. MEDICATIONS: Multiple. Please see list. ALLERGIES: ALLERGIES include LISINOPRIL, which causes itching. STATINS cause itching as well. REVIEW OF SYSTEMS: As per HPI. Other systems negative. PHYSICAL EXAMINATION: Patient is comfortable, awake, not in any acute distress. Alert, oriented x3. Blood pressure was 122/78, heart rate 76 per minute. She is afebrile. EXAMINATION OF THE HEART: S1 and S2. EXAMINATION OF LUNGS: Bilateral breath sounds are heard. ABDOMEN: Soft, non-tender, obese. Examination of lower extremities shows no significant edema. LABS: Labs show sodium 137, potassium 4.9, creatinine 6.8, hemoglobin 10.1. ASSESSMENT: 1. End-stage renal disease, on hemodialysis on a Saturday, , Saturday schedule. 2. MRSA bacteremia. Source is likely catheter, which will need to be changed. Maintained on antibiotics. ID has been consulted. 3. Hypertension. 4. Anemia of chronic disease. PLAN: Hemodialysis today and then again on 05/14/2020. Maintain patient on antibiotics. Catheter will need to be changed prior to discharge. MMODL / IJN: [id number] /
[2020-05-12 20:32] LABS: Glucose,Whole Blood 95 mg/dL (75-99)
[2020-05-12] MEDS: METOPROLOL TARTRATE 50 MG TAB PO SCH (21:51)
[2020-05-12] MEDS: EZETIMIBE 10 MG TAB PO SCH (21:51)
--- NOTE | 2020-05-12 23:51 | P.CONS ---
History of Present Illness - Reason for Consult Consult date: 05/12/20 Bacteremia Requesting physician: Asaf Ordonez - Chief Complaint Confusion x one day - History of Present Illness Patient is a 75-year-old female with a past medical history significant for end-stage renal disease on hemodialysis through the right subclavian, catheter patient was sent to the ER from the dialysis center for evaluation of confusion that apparently started during dialysis, there was concern for fever the outside facility but no fever has been recorded here and white count has been normal, patient did have blood culture done which came back positive for staph aureus that prompted this infectious disease consultation at the time of evaluation the patient was undergoing dialysis and I'll specifically the patient denies having any headache no chest pain or shortness with minimal cough no nausea no vomiting no abdominal pain no diarrhea currently denies having any open wound or any joint swelling Review of Systems Positive point has been mentioned in the HPI rest of the systems are negative Past Medical History Past Medical History: Atrial Fibrillation, Asthma, Heart Failure, CVA/TIA, Diabetes Mellitus, Deep Vein Thrombosis (DVT), Eye Disorder, GERD/Reflux, Hyperlipidemia, Hypertension, Osteoarthritis (OA), Renal Disease Additional Past Medical History / Comment(s): TIA 2018; HEMODIALYSIS //SAT History of Any Multi-Drug Resistant Organisms: None Reported Past Surgical History: Adenoidectomy, Appendectomy, Cholecystectomy, Pacemaker, Tonsillectomy Past Anesthesia/Blood Transfusion Reactions: No Reported Reaction Type of Cardiac Device: Permanent Pacemaker Device Placement Date:: 2016 Past Psychological History: No Psychological Hx Reported Smoking Status: Never smoker Past Alcohol Use History: None Reported Past Drug Use History: None Reported - Past Family History Father Family Medical History: Myocardial Infarction (CT) Additional Family Medical History / Comment(s): RHEUMATIC FEVER Medications and Allergies Home Medications Medication Instructions Recorded Confirmed Type Ezetimibe [Zetia] 10 mg PO HS@209912/22/17 05/10/20 History Metoprolol Tartrate [Lopressor] 50 mg PO SUMOWEFR@699,209912/22/17 05/10/20 History Ascorbic Acid [Vitamin C] 500 mg PO DAILY@1700 08/19/18 05/10/20 History Aspirin 81 mg PO DAILY@0700 02/10/19 05/10/20 History Cinnamon Bark [Cinnamon] 1,000 mg PO BID@07,2100 02/10/19 05/10/20 History [place]-3/Dha/Epa/Fish Oil [Fish Oil 1 cap PO DAILY@1700 02/10/19 05/10/20 History 500 mg Softgel] Acetaminophen Tab [Tylenol] 325 mg PO TID@0800,1500,2100 MDD 3 09/23/19 05/10/20 History GRAMS/24HRS Fluticasone Nasal [place] [Flonase 1 spr EA NOSTRIL DAILY PRN 09/23/19 05/10/20 History Nasal [place]] Furosemide [Lasix] 80 mg PO SUMOWEFR@0700,1300 09/23/19 05/10/20 History INSULIN ASPART (NovoLOG) [NovoLOG See Protocol SQ ACHS 09/23/19 05/10/20 History (formulary)] Midodrine HCl [ProAmatine] 10 mg PO TUTHSA 09/23/19 05/10/20 History Omeprazole 20 mg PO DAILY@0700 09/23/19 05/10/20 History bisacodyL [Bisacodyl] 10 mg RECTAL Q48H PRN 09/23/19 05/10/20 History Acetaminophen Tab [Tylenol] 325 mg PO Q6HR PRN MDD 3 05/10/20 05/10/20 History GRAMS/24HRS Amoxic-Pot Clav 500-125 mg 1 tab PO DAILY@0900,2100 05/10/20 05/10/20 History [Augmentin 500-125 mg] Apixaban [Eliquis] 2.5 mg PO BID@0700,1700 05/10/20 05/10/20 History Bydureon Bcise 2mg/0.85ml 2 mg SQ WE 05/10/20 05/10/20 History Calcium Carbonate 500 mg PO TID@0700,1500,2300 05/10/20 05/10/20 History Cholecalciferol [Vitamin D3 (25 4,000 unit PO DAILY@1700 05/10/20 05/10/20 History Mcg = 1000 Iu)] Furosemide [Lasix] 80 mg PO TUTHSA@1500 05/10/20 05/10/20 History Hydrocortisone Cream 1 applic TOPICAL Q8H PRN 05/10/20 05/10/20 History [Hydrocortisone 2.5% Cream] Insulin Glargine,Hum.rec.anlog 25 unit SQ DAILY@0700 05/10/20 05/10/20 History [Basaglar Kwikpen U-100] Magnesium Hydroxide [Milk of 2,400 mg PO Q24H PRN 05/10/20 05/10/20 History Magnesia] Metoprolol Tartrate [Lopressor] 50 mg PO TUTHSA@2100 05/10/20 05/10/20 History Nystatin 100,000Unit/gm Cream 1 applic TOPICAL DAILY 05/10/20 05/10/20 History [Mycostatin Cream] Nystatin 100,000Unit/gm Cream 1 applic TOPICAL TID 05/10/20 05/10/20 History [Mycostatin Cream] Ondansetron [Zofran] 4 mg PO Q4H PRN 05/10/20 05/10/20 History Renvela Packet 0.8gm 3 pack PO TID@0700,1200,1700 05/10/20 05/10/20 History Leach Muscle Warming Roberts 1 applic TOPICAL Q4H PRN 05/10/20 05/10/20 History Leach Muscle Warming Roberts 1 applic TOPICAL TID 05/10/20 05/10/20 History diphenhydrAMINE [Benadryl] 25 mg PO Q8H PRN 05/10/20 05/10/20 History traMADol HCL 50 mg PO BID@0700,1500,2100 05/10/20 05/10/20 History traMADol HCL 50 mg PO Q24H PRN 05/10/20 05/10/20 History Allergies Allergy/AdvReac Type Severity Reaction Status Date / Time lisinopril Allergy Itching Verified 09/23/19 10:19 [id number]-Cjh-Yxj Reductase Allergy Itching Verified 09/23/19 10:19 Inhibitor Physical Exam Vitals: Vital Signs Temp Pulse Resp BP Pulse Ox 05/12/20 19:20 16 05/12/20 19:11 97.7 F 74 16 129/72 93 L 05/12/20 15:20 98.7 F 76 18 148/83 05/12/20 15:00 97.6 F 74 16 116/61 94 L 05/12/20 13:13 78 22 122/84 05/12/20 08:24 76 05/12/20 07:00 97.7 F 76 20 122/78 98 05/12/20 00:31 98.2 F 72 15 124/74 93 L Intake and Output 05/12/20 05/12/20 05/13/20 14:59 22:59 06:59 Intake Total 700 100 Output Total 1999 Balance 700 -1900 Intake: Intake, IV Titration 500 Amount Vancomycin 1,750 mg In 500 Sodium Chloride 0.9% 500 ml 500 ml @ 167 mls/hr IVPB ONCE ONE Rx#: [id number] Oral 200 100 Output: Hemodialysis 1999 Other: Voiding Method Indwelling Catheter Indwelling Catheter GENERAL DESCRIPTION: An elderly female lying in bed, no distress. No tachypnea or accessory muscle of respiration use. HEENT: Shows Pallor , no scleral icterus. Oral mucous membrane is dry. No pharyngeal erythema or thrush NECK: Trachea central, no thyromegaly. LUNGS: Unlabored breathing. Clear to auscultation anteriorly. No wheeze or crackle. HEART: S1, S2, regular rate and rhythm. No loud murmur ABDOMEN: Soft, no tenderness , guarding or rigidity, no organomegaly EXTREMITIES: No edema of feet. SKIN: No rash, no masses palpable. NEUROLOGICAL: The patient is awake, alert, oriented x3, mood and affect normal. Results CBC & Chem 7: 05/12/20 06:21 05/12/20 06:21 Labs: Abnormal Lab Results - Last 24 Hours (Table) 05/12/20 05/12/20 05/12/20 Range/Units 06:21 06:21 06:52 RBC 3.04 L (3.80-5.40) m/uL Hgb 10.1 L (11.4-16.0) gm/dL Hct 32.0 L (34.0-46.0) % MCV 105.3 H (80.0-100.0) fL Anion Gap 14.80 H (4.00-12.00) mmol/L BUN 58.0 H (9.0-27.0) mg/dL Creatinine 6.8 H (0.6-1.5) mg/dL Est GFR (CKD-EPI)AfAm 6.4 L (60.0-200.0) Est GFR (CKD-EPI)NonAf 5.5 L (60.0-200.0) BUN/Creatinine Ratio 8.53 L (12.00-20.00) Ratio POC Glucose (mg/dL) (75-99) mg/dL Phosphorus 5.4 H (2.4-5.1) mg/dL 05/12/20 05/12/20 Range/Units 07:03 17:08 RBC (3.80-5.40) m/uL Hgb (11.4-16.0) gm/dL Hct (34.0-46.0) % MCV (80.0-100.0) fL Anion Gap (4.00-12.00) mmol/L BUN (9.0-27.0) mg/dL Creatinine (0.6-1.5) mg/dL Est GFR (CKD-EPI)AfAm (60.0-200.0) Est GFR (CKD-EPI)NonAf (60.0-200.0) BUN/Creatinine Ratio (12.00-20.00) Ratio POC Glucose (mg/dL) 108 H 122 H (75-99) mg/dL Phosphorus (2.4-5.1) mg/dL Microbiology - Last 24 Hours (Table) 05/10/20 20:00 Blood Culture Gram Stain - Preliminary Blood Blood Culture - Preliminary Presumptive MRSA Assessment and Plan Assessment: 1- patient is 75-year-old female with past medical history significant for end-stage renal disease on hemodialysis for has been brought to the hospital for evaluation of confusion and evidence of gram-positive bacteremia/staph aureus in this patient who do have subclavian permacath for dialysis, to the likely source as the patient currently do not have any obvious focus of infection (1) Staphylococcus aureus bacteremia Current Visit: Yes Status: Acute Code(s): R78.81 - BACTEREMIA; B95.61 - METHICILLIN SUSCEP ST[facility] Code(s): 298790140 Plan: 1-blood cultures will be repeated from the permacatheter today 2-Vancomycin pharmacy to dose target trough of 15 while watching kidney function and Vanco trough closely We will follow on clinical condition and cultures to further adjust medication if needed Thank you for this consultation will follow this patient with you Time with Patient: Greater than 30
[2020-05-13 06:34] LABS: HCT 32.4 % (34.0-46.0); HGB 10.3 gm/dL (11.4-16.0); Hypochromasia Slight; MCH 33.2 pg (25.0-35.0); MCHC 31.7 g/dL (31.0-37.0); MCV 104.6 fL (80.0-100.0); Macrocytosis Moderate; Mean Platelet Volume 7.1; Platelet Count 275 k/uL (150-450); RDW 14.7 % (11.5-15.5); WBC 9.4 k/uL (3.8-10.6)
[2020-05-13 06:44] LABS: Glucose,Whole Blood 99 mg/dL (75-99)
[2020-05-13] MEDS: PANTOPRAZOLE 40 MG TABLET PO SCH (07:50)
[2020-05-13] MEDS: FUROSEMIDE 80 MG TAB PO SCH ×3 (07:50→13:10)
[2020-05-13] MEDS: CALCIUM CARBONATE 500 MG CHEWABLE PO SCH ×3 (07:50→22:40)
[2020-05-13] MEDS: SEVELAMER 800 MG TAB PO SCH ×3 (07:50→18:20)
[2020-05-13] MEDS: METOPROLOL TARTRATE 50 MG TAB PO SCH ×2 (07:50→21:31)
[2020-05-13] MEDS: ASPIRIN 81 MG PO SCH (07:50)
[2020-05-13] MEDS: APIXABAN 2.5 MG TABLET PO SCH ×2 (07:50→18:19)
[2020-05-13] MEDS: INSULIN ASPART (NovoLOG) 100 UNIT/ML VIAL SQ SCH ×4 (08:08→21:27)
[2020-05-13] MEDS ORDERED: VANCOMYCIN 1,750 MG in SODIUM CHLORIDE 0.9% 500 ML 500 ML IVPB ONE (09:00)
[2020-05-13] MEDS: INSULIN DETEMIR (LEVEMIR) 100 UNIT/ML SYR SQ SCH (09:50)
[2020-05-13 09:56] LABS: African American GFR (CKD) 11.1 (60.0-200.0); Anion Gap 10.7 mmol/L (4.00-12.00); BUN/Creat Ratio 7.21 Ratio (12.00-20.00); Calcium 9.2 mg/dL (8.7-10.3); Carbon Dioxide 26.3 mmol/L (21.6-31.8); Non-African American GFR(CKD) 9.6 (60.0-200.0); Potassium 4.5 mmol/L (3.5-5.5)
[2020-05-13] MEDS: NYSTATIN 100,000UNIT/GM CREAM 30 GM TUBE TOPICAL SCH ×4 (09:57→21:31)
[2020-05-13 11:28] LABS: Glucose,Whole Blood 146 mg/dL (75-99)
[2020-05-13 17:12] LABS: Glucose,Whole Blood 116 mg/dL (75-99)
[2020-05-13] MEDS: CHOLECALCIFEROL 1,000 UNIT TAB PO SCH (18:19)
[2020-05-13] MEDS: ASCORBIC ACID 500 MG TAB PO SCH (18:20)
--- NOTE | 2020-05-13 19:59 | PN ---
PROGRESS NOTE Patient is seen for followup for end-stage renal disease. She was admitted to the hospital with increased weakness. Patient was found to have MRSA bacteremia. She has had this PermCath for about a year and has refused multiple vascular surgery appointments as outpatient for placement of an arm access. Overall, patient states she is feeling better. Repeat blood cultures are negative thus far. Patient is maintained on vancomycin. PHYSICAL EXAMINATION: On examination today, blood pressure is 130/80, heart rate 73 per minute. She is afebrile. EXAMINATION OF THE HEART: S1 and S2. EXAMINATION OF LUNGS: Bilateral breath sounds are heard. ABDOMEN: Soft, obese. Examination of lower extremities shows chronic skin changes. Trace edema noted. HEMODIALYSIS TECHNICIAN exam is grossly intact. LABS: Labs show sodium 138, potassium 4.5, BUN 31, creatinine 4.3, hemoglobin 10.3 g/dL. ASSESSMENT: 1. End-stage renal disease, on hemodialysis on a Saturday, , Saturday schedule. We will arrange for hemodialysis in a.m. 2. Methicillin-resistant Staphylococcus aeruginosa bacteremia with repeat cultures currently negative; however, since the catheter has been in for more than a year, I will remove this catheter during this admission and we will plan for a new catheter placement later on in the week. We will remove the catheter after tomorrow's dialysis. Continue with the antibiotics. 3. Chronic kidney disease mineral bone disorder. 4. Morbid obesity. 5. Anemia of chronic disease. PLAN: Hemodialysis in a.m. Discontinue PermCath after dialysis tomorrow and plan for new catheter placement on Saturday. Continue antibiotics. Patient is encouraged to follow with Vascular Surgery for placement of AV fistula/AV graft. MMODL / IJN: [id number] /
[2020-05-13 21:12] LABS: Glucose,Whole Blood 128 mg/dL (75-99)
[2020-05-13] MEDS: EZETIMIBE 10 MG TAB PO SCH (21:31)
--- NOTE | 2020-05-13 23:18 | PN ---
PROGRESS NOTE DATE OF SERVICE: 05/13/2020 REASON FOR FOLLOWUP: MRSA bacteremia likely pulmonary catheter infection. INTERVAL HISTORY: Patient is currently afebrile. The patient is breathing comfortably. The patient denies having any chest pain or shortness of breath or cough. No nausea, vomiting, abdominal pain or diarrhea. PHYSICAL EXAMINATION: Blood pressure 147/77, pulse of 70, temperature 98. She is 98% on room air. General description: The patient is an elderly female lying in bed in no distress. Respiratory system: Unlabored breathing, clear to auscultation anteriorly. Heart S1, S2. Regular rate and rhythm. ABDOMEN: Soft, no tenderness. LABS: Hemoglobin is 10.3, white count 9.4, creatinine 4.3. DIAGNOSTIC IMPRESSION AND PLAN: Patient with MRSA bacteremia clinically suspicious for the pulmonary catheter infection. Vascular surgeon will be consulted for removal of PermCath and discuss further with Nephrology. Continue supportive care. MMODL / IJN: [id number] /
[2020-05-14 06:54] LABS: Glucose,Whole Blood 113 mg/dL (75-99)
[2020-05-14] MEDS: INSULIN ASPART (NovoLOG) 100 UNIT/ML VIAL SQ SCH ×4 (06:58→21:38)
[2020-05-14] MEDS: ASPIRIN 81 MG PO SCH (08:02)
[2020-05-14] MEDS: APIXABAN 2.5 MG TABLET PO SCH ×2 (08:02→17:01)
[2020-05-14] MEDS: CALCIUM CARBONATE 500 MG CHEWABLE PO SCH ×3 (08:02→23:51)
[2020-05-14] MEDS: INSULIN DETEMIR (LEVEMIR) 100 UNIT/ML SYR SQ SCH (08:02)
[2020-05-14] MEDS: PANTOPRAZOLE 40 MG TABLET PO SCH (08:02)
[2020-05-14] MEDS: SEVELAMER 800 MG TAB PO SCH ×3 (08:03→17:52)
[2020-05-14] MEDS: NYSTATIN 100,000UNIT/GM CREAM 30 GM TUBE TOPICAL SCH ×4 (08:03→21:39)
[2020-05-14] MEDS: ACETAMINOPHEN TAB 325 MG TAB PO PRN ×2 (10:13→21:38)
[2020-05-14] MEDS: MIDODRINE 5 MG TAB PO SCH (10:13)
[2020-05-14 11:40] LABS: Glucose,Whole Blood 177 mg/dL (75-99)
--- NOTE | 2020-05-14 13:59 | P.PN ---
Subjective Progress Note Date: 05/14/20 Principal diagnosis: This is 75-year-old female transferred from [facility] where she presented with confusion. She is known with ESRD on dialysis Saturday. She has bacteremia, MRSA, presumably from the permacath She is known with atrial fibrillation, diabetes mellitus, DVT, She is currently afebrile vital signs are stable she denies any nausea vomiting diarrhea abdominal pain fever chills Objective - Vital Signs Vital signs: Vital Signs Temp 97.8 F 05/14/20 07:28 Pulse 73 05/14/20 07:28 Resp 17 05/14/20 07:28 BP 130/80 05/14/20 07:28 Pulse Ox 95 05/14/20 07:28 Intake & Output 05/13/20 05/14/20 05/14/20 18:59 06:59 18:59 Output Total 910 300 Balance -910 -300 Output: Urine 910 300 Other: Voiding Method Indwelling Catheter Indwelling Catheter Indwelling Catheter # Bowel Movements 1 1 On examination is awake alert oriented comfortable The catheter in her right side is nontender denies excessive site infection HEENT exam no JVP neck is supple no facial asymmetry Lungs are clear to auscultation fair air entry bilaterally Heart sounds are unremarkable for any murmur rub gallop Abdomen soft nontender Extremity exam was no edema Neurologically awake alert oriented - Labs CBC & Chem 7: 05/13/20 06:15 05/13/20 06:15 Labs: Abnormal Lab Results - Last 24 Hours (Table) 05/13/20 05/13/20 05/14/20 Range/Units 17:10 21:11 06:53 POC Glucose (mg/dL) 116 H 128 H 113 H (75-99) mg/dL 05/14/20 Range/Units 11:36 POC Glucose (mg/dL) 177 H (75-99) mg/dL Microbiology - Last 24 Hours (Table) 05/13/20 06:15 Blood Culture - Preliminary Blood No Growth after 24 hours 05/12/20 11:30 Blood Culture Gram Stain - Preliminary Blood Blood Culture - Preliminary Presumptive MRSA 05/12/20 15:02 Blood Culture - Preliminary Blood No Growth after 24 hours Assessment and Plan Assessment: Impression 1. MRSA assay bacteremia secondary to permacath 2. ESRD on dialysis with a permacath 3. Anemia of ESRD was 10.3 at target 4. Vital signs stable Recommendation 1. Will dialyze her tomorrow as there is problem with staph shortage and 20 vision in the hospital 2. After dialysis tomorrow will remove the catheter in place in the 1 in about 2-3 days
[2020-05-14 17:30] LABS: Glucose,Whole Blood 126 mg/dL (75-99)
[2020-05-14] MEDS: CHOLECALCIFEROL 1,000 UNIT TAB PO SCH (17:52)
[2020-05-14] MEDS: FLUTICASONE 50MCG/SPRAY NASAL 16GM EA NOSTRIL PRN (17:53)
--- NOTE | 2020-05-14 18:56 | P.PN ---
Subjective Progress Note Date: 05/13/20 Patient was admitted with agitation is better to have urinary tract infection although patient is found to be bacteremic with staph aureus probable source of infection being her dialysis catheter which was put in a while ago. We'll obtain cultures from the dialysis catheter as well as from periphery infectious disease will be consulted patient patient is alert oriented 3 today. Patient was started on IV vancomycin. Patient is undergoing hemodialysis today. Patient is bit volume overloaded this is expected to improve with the hemodialysis. Her mental status significant improved. She is also on Rocephin which will be discontinued. I do not believe patient has UTI but does have bacteremia and sepsis secondary to staph aureus and possible source being the dialysis catheter. Objective - Vital Signs Vital signs: Vital Signs Temp 97.6 F 05/13/20 15:00 Pulse 73 05/13/20 16:00 Resp 16 05/13/20 16:00 BP 130/80 05/13/20 15:00 Pulse Ox 92 L 05/13/20 16:06 Intake & Output 05/12/20 05/13/20 05/13/20 18:59 06:59 18:59 Intake Total 700 100 Output Total 2000 300 910 Balance -1300 -200 -910 Intake: Intake, IV Titration 500 Amount Vancomycin 1,750 mg In 500 Sodium Chloride 0.9% 500 ml 500 ml @ 167 mls/hr IVPB ONCE ONE Rx#: [id number] Oral 200 100 Output: Urine 300 910 Hemodialysis 2000 Other: Voiding Method Indwelling Catheter Indwelling Catheter Indwelling Catheter # Bowel Movements 1 - Exam PHYSICAL EXAMINATION: GENERAL: The patient is alert and oriented x3, not in any acute distress. Well developed, well nourished. HEENT: Pupils are round and equally reacting to light. EOMI. No scleral icterus. No conjunctival pallor. Normocephalic, atraumatic. No pharyngeal erythema. No thyromegaly. CARDIOVASCULAR: S1 and S2 present. No murmurs, rubs, or gallops. PULMONARY: Chest is clear to auscultation, no wheezing or crackles. ABDOMEN: Soft, nontender, nondistended, normoactive bowel sounds. No palpable organomegaly. MUSCULOSKELETAL: No joint swelling or deformity. EXTREMITIES: No cyanosis, clubbing, or pedal edema. NEUROLOGICAL: Gross neurological examination did not reveal any focal deficits. SKIN: No rashes. - Labs CBC & Chem 7: 05/13/20 06:15 05/13/20 06:15 Labs: Abnormal Lab Results - Last 24 Hours (Table) 05/12/20 05/13/20 05/13/20 Range/Units 06:52 06:15 06:15 RBC 3.10 L (3.80-5.40) m/uL Hgb 10.3 L (11.4-16.0) gm/dL Hct 32.4 L (34.0-46.0) % MCV 104.6 H (80.0-100.0) fL BUN 31.0 H (9.0-27.0) mg/dL Creatinine 4.3 H (0.6-1.5) mg/dL Est GFR (CKD-EPI)AfAm 11.1 L (60.0-200.0) Est GFR (CKD-EPI)NonAf 9.6 L (60.0-200.0) BUN/Creatinine Ratio 7.21 L (12.00-20.00) Ratio POC Glucose (mg/dL) (75-99) mg/dL Phosphorus 5.4 H (2.4-5.1) mg/dL 05/13/20 05/13/20 Range/Units 11:26 17:10 RBC (3.80-5.40) m/uL Hgb (11.4-16.0) gm/dL Hct (34.0-46.0) % MCV (80.0-100.0) fL BUN (9.0-27.0) mg/dL Creatinine (0.6-1.5) mg/dL Est GFR (CKD-EPI)AfAm (60.0-200.0) Est GFR (CKD-EPI)NonAf (60.0-200.0) BUN/Creatinine Ratio (12.00-20.00) Ratio POC Glucose (mg/dL) 146 H 116 H (75-99) mg/dL Phosphorus (2.4-5.1) mg/dL Microbiology - Last 24 Hours (Table) 05/12/20 15:02 Blood Culture - Preliminary Blood No Growth after 24 hours 05/12/20 11:30 Blood Culture Gram Stain - Preliminary Blood 05/10/20 20:00 Blood Culture Gram Stain - Final Blood Blood Culture - Final Methicillin resist S. aureus 05/12/20 11:30 Blood Culture - Final Blood Assessment and Plan Assessment: Altered mental status encephalopathy may be toxic encephalopathy secondary to sepsis from staph aureus bacteremia no evidence of urinary tract infection at this time. Rocephin will risk and urine patient will continued on vancomycin and repeat blood cultures will be obtained possible source being dialysis catheter site. -Sepsis and bacteremia secondary to staph aureus bacteremia. -Atrial fibrillation presently rate controlled probably paroxysmal A. fib patient is on Eliquis which will be continued -DVT in the past - type 2 diabetes mellitus -Gastroesophageal reflux disease - hyperlipidemia -Hypertension -Congestive heart failure chronic diastolic dysfunction presently in bit exacerbation and a bit volume overloaded and the dialysis is expected to help with this. -Severe pulmonary hypertension doesn't have any symptom pedal edema and JVD at this time -End-stage renal disease hemodialysis dependent nephrology is consulted. Patient probably has diabetic nephropathy
[2020-05-14 20:32] LABS: Glucose,Whole Blood 156 mg/dL (75-99)
[2020-05-14] MEDS: EZETIMIBE 10 MG TAB PO SCH (21:38)
[2020-05-14] MEDS: METOPROLOL TARTRATE 50 MG TAB PO SCH (21:38)
--- NOTE | 2020-05-14 22:35 | CONS ---
CONSULTATION This is a 75-year-old female, well known to me from the past. The patient has been admitted with history of confusion and patient had a workup. Blood cultures came positive for Staph aureus. The patient is having dialysis through the right IJ catheter. She has history of atrial fibrillation, diabetes mellitus, and DVT and the patient has a history of chronic renal failure and having dialysis 3 times a week. The patient was seen in her room. The patient has a right IJ catheter. Neck is supple. Chest a few crackles at the lung bases. Abdomen is protuberant. Brachial radial pulses are present. The patient is scheduled to have a dialysis tomorrow. We will discuss with Nephrology if the patient needs to be treated for removal of the dialysis catheter. We will hold Eliquis for 24-48 hours prior to when we take the catheter out. We will follow with you. Thank you for the consultation. MAYA / DAYAMI: [id number] /
--- NOTE | 2020-05-14 23:47 | PN ---
PROGRESS NOTE DATE OF SERVICE: 05/14/2020 REASON FOR FOLLOWUP: MRSA bacteremia with concern for possible pulmonary catheter infection. INTERVAL HISTORY: Patient is currently afebrile. Did mention not feeling that good though. No chest pain. No shortness of breath. No cough. No abdominal pain or diarrhea. PHYSICAL EXAMINATION: Blood pressure 143/83 with a pulse of 70. Temperature is 97.7. She is 99% on 4 L nasal cannula. General description is an elderly female lying in bed in no distress. Respiratory system: Unlabored breathing, clear to auscultation anteriorly. Heart S1, S2. Regular rate and rhythm. ABDOMEN: Soft, no tenderness. LABS: Blood cultures repeat have been negative so far. DIAGNOSTIC IMPRESSION AND PLAN: Patient with MRSA bacteremia with concern for possible pulmonary catheter infection. Vascular Surgery has been consulted for removal of the [id number]-G-Yysqkkol. Continue vancomycin and monitor clinical course closely. MMODL / IJN: [id number] /
[2020-05-15] MEDS: APIXABAN 2.5 MG TABLET PO SCH ×2 (05:45→14:47)
[2020-05-15 07:40] LABS: Glucose,Whole Blood 140 mg/dL (75-99)
[2020-05-15] MEDS: METOPROLOL TARTRATE 50 MG TAB PO SCH ×2 (08:42→21:10)
[2020-05-15] MEDS: FUROSEMIDE 80 MG TAB PO SCH ×2 (08:42→14:10)
[2020-05-15] MEDS: CALCIUM CARBONATE 500 MG CHEWABLE PO SCH ×3 (08:43→21:09)
[2020-05-15] MEDS: PANTOPRAZOLE 40 MG TABLET PO SCH (08:43)
[2020-05-15] MEDS: ASPIRIN 81 MG PO SCH (08:43)
[2020-05-15] MEDS: SEVELAMER 800 MG TAB PO SCH ×3 (08:44→17:12)
[2020-05-15] MEDS: INSULIN ASPART (NovoLOG) 100 UNIT/ML VIAL SQ SCH ×4 (08:44→21:10)
[2020-05-15] MEDS: INSULIN DETEMIR (LEVEMIR) 100 UNIT/ML SYR SQ SCH (08:44)
[2020-05-15] MEDS: NYSTATIN 100,000UNIT/GM CREAM 30 GM TUBE TOPICAL SCH ×4 (08:45→21:10)
[2020-05-15] MEDS ORDERED: MIDODRINE 5 MG TAB PO STA (08:56)
--- NOTE | 2020-05-15 09:23 | P.PN ---
Subjective Progress Note Date: 05/15/20 Principal diagnosis: This is 75-year-old female transferred from [facility] where she presented with confusion. She is known with ESRD on dialysis Saturday. She has bacteremia, MRSA, presumably from the permacath She is known with atrial fibrillation, diabetes mellitus, DVT, She is currently afebrile vital signs are stable she denies any nausea vomiting diarrhea abdominal pain fever chills Her repeat blood cultures are negative. She's been afebrile and weight is stable with no tunnel infection or exit site infection. She has a Hsu catheter and made 1.2 L of urine. Hsu catheter was inserted here in the hospital She is a snf resident and uses oxygen 24 7 although there is no history of COPD or sleep apnea. Objective - Vital Signs Vital signs: Vital Signs Temp 97.9 F 05/15/20 07:00 Pulse 74 05/15/20 07:00 Resp 16 05/15/20 07:00 BP 125/82 05/15/20 07:00 Pulse Ox 92 L 05/15/20 07:00 Intake & Output 05/14/20 05/15/20 05/15/20 18:59 06:59 18:59 Output Total 701 450 Balance -701 -450 Output: Urine 700 450 Uretheral (Hsu) 700 Stool 1 Other: Voiding Method Indwelling Catheter Indwelling Catheter # Bowel Movements 1 1 On examination she is awake alert oriented comfortable Currently on dialysis today as he could not do it yesterday because of staffing issues HEENT exam no JVP neck is supple no facial asymmetry Lungs are clear to auscultation good air entry bilaterally Heart sounds are unremarkable for any murmur rub gallop Abdomen soft nontender Extremity exam was no edema Neurologically awake alert oriented but profoundly weak - Labs CBC & Chem 7: 05/13/20 06:15 05/13/20 06:15 Labs: Abnormal Lab Results - Last 24 Hours (Table) 05/14/20 05/14/20 05/14/20 Range/Units 11:36 17:26 20:30 POC Glucose (mg/dL) 177 H 126 H 156 H (75-99) mg/dL 05/15/20 Range/Units 07:36 POC Glucose (mg/dL) 140 H (75-99) mg/dL Microbiology - Last 24 Hours (Table) 05/14/20 06:40 Blood Culture - Preliminary Blood No Growth after 24 hours 05/13/20 06:15 Blood Culture - Preliminary Blood No Growth after 48 hours 05/12/20 11:30 Blood Culture Gram Stain - Final Blood Blood Culture - Final Methicillin resist S. aureus 05/12/20 15:02 Blood Culture - Preliminary Blood No Growth after 48 hours Assessment and Plan Assessment: Impression 1. MRSA bacteremia secondary to permacath 2. ESRD on dialysis with a permacath, on Saturday. Good urine output 3. Anemia of ESRD was 10.3 at target 4. care home resident Vital signs stable Recommendation 1. Will continue with Lasix 2. Discontinue the Hsu catheter 3. Discontinue oxygen and check O2 saturation 4. Will discuss with Dr. Pearl regarding management of catheter replacement over guidewire versus new catheter as she has very few possibilities of access
[2020-05-15] MEDS: traMADol 50 MG TAB PO PRN (10:57)
[2020-05-15 11:48] LABS: Glucose,Whole Blood 131 mg/dL (75-99)
--- NOTE | 2020-05-15 16:22 | P.PN ---
Subjective Progress Note Date: 05/14/20 Principal diagnosis: MRSA bacteremia presumably from permacath Patient was admitted with agitation is better to have urinary tract infection although patient is found to be bacteremic with staph aureus probable source of infection being her dialysis catheter which was put in a while ago. We'll obtain cultures from the dialysis catheter as well as from periphery infectious disease will be consulted patient patient is alert oriented 3 today. Patient was started on IV vancomycin. Patient is undergoing hemodialysis today. Patient is bit volume overloaded this is expected to improve with the hemodialysis. Her mental status significant improved. She is also on Rocephin which will be discontinued. I do not believe patient has UTI but does have bacteremia and sepsis secondary to staph aureus and possible source being the dialysis catheter. 05/14/2020 Patient is seen and evaluated in room; she is on bedpan and somewhat irritable for not having bowel movements yet Vital signs are stable with a temperature precipitate, pulse 73, respirations 17 and blood pressure 130/80 Patient is being treated for MRSA bacteremia possibly secondary to permacath infection; vascular surgery has been consulted for removal of permacath; patient remains on IV vancomycin in the meantime; ID to make final recommendations on final choice and duration of IV antibiotic therapy Objective - Vital Signs Vital signs: Vital Signs Temp 97.6 F 05/14/20 14:24 Pulse 74 05/14/20 14:24 Resp 17 05/14/20 14:24 BP 133/85 05/14/20 14:24 Pulse Ox 91 L 05/14/20 14:24 Intake & Output 05/13/20 05/14/20 05/14/20 18:59 06:59 18:59 Output Total 910 300 1 Balance -910 -300 -1 Output: Urine 910 300 Stool 1 Other: Voiding Method Indwelling Catheter Indwelling Catheter Indwelling Catheter # Bowel Movements 1 1 - Exam PHYSICAL EXAMINATION: GENERAL: The patient is alert and oriented x3, not in any acute distress. Well developed, well nourished. HEENT: Pupils are round and equally reacting to light. EOMI. No scleral icterus. No conjunctival pallor. Normocephalic, atraumatic. No pharyngeal erythema. No thyromegaly. CARDIOVASCULAR: S1 and S2 present. No murmurs, rubs, or gallops. PULMONARY: Chest is clear to auscultation, no wheezing or crackles. ABDOMEN: Soft, nontender, nondistended, normoactive bowel sounds. No palpable organomegaly. MUSCULOSKELETAL: No joint swelling or deformity. EXTREMITIES: No cyanosis, clubbing, or pedal edema. NEUROLOGICAL: Gross neurological examination did not reveal any focal deficits. SKIN: No rashes. - Labs CBC & Chem 7: 05/13/20 06:15 05/13/20 06:15 Labs: Abnormal Lab Results - Last 24 Hours (Table) 05/13/20 05/14/20 05/14/20 Range/Units 21:11 06:53 11:36 POC Glucose (mg/dL) 128 H 113 H 177 H (75-99) mg/dL 05/14/20 Range/Units 17:26 POC Glucose (mg/dL) 126 H (75-99) mg/dL Microbiology - Last 24 Hours (Table) 05/12/20 15:02 Blood Culture - Preliminary Blood No Growth after 48 hours 05/13/20 06:15 Blood Culture - Preliminary Blood No Growth after 24 hours 05/12/20 11:30 Blood Culture Gram Stain - Preliminary Blood Blood Culture - Preliminary Presumptive MRSA Assessment and Plan Assessment: Altered mental status encephalopathy may be toxic encephalopathy secondary to sepsis from staph aureus bacteremia no evidence of urinary tract infection at this time. Rocephin will risk and urine patient will continued on vancomycin and repeat blood cultures will be obtained possible source being dialysis catheter site. -Sepsis and bacteremia secondary to staph aureus bacteremia. -Atrial fibrillation presently rate controlled probably paroxysmal A. fib patient is on Eliquis which will be continued -DVT in the past - type 2 diabetes mellitus -Gastroesophageal reflux disease - hyperlipidemia -Hypertension -Congestive heart failure chronic diastolic dysfunction presently in bit exacerbation and a bit volume overloaded and the dialysis is expected to help with this. -Severe pulmonary hypertension doesn't have any symptom pedal edema and JVD at this time -End-stage renal disease hemodialysis dependent nephrology is consulted. Patient probably has diabetic nephropathy
--- NOTE | 2020-05-15 16:26 | P.PN ---
Subjective Progress Note Date: 05/15/20 Principal diagnosis: MRSA bacteremia presumably from permacath Patient was admitted with agitation is better to have urinary tract infection although patient is found to be bacteremic with staph aureus probable source of infection being her dialysis catheter which was put in a while ago. We'll obtain cultures from the dialysis catheter as well as from periphery infectious disease will be consulted patient patient is alert oriented 3 today. Patient was started on IV vancomycin. Patient is undergoing hemodialysis today. Patient is bit volume overloaded this is expected to improve with the hemodialysis. Her mental status significant improved. She is also on Rocephin which will be discontinued. I do not believe patient has UTI but does have bacteremia and sepsis secondary to staph aureus and possible source being the dialysis catheter. 05/14/2020 Patient is seen and evaluated in room; she is on bedpan and somewhat irritable for not having bowel movements yet Vital signs are stable with a temperature precipitate, pulse 73, respirations 17 and blood pressure 130/80 Patient is being treated for MRSA bacteremia possibly secondary to permacath infection; vascular surgery has been consulted for removal of permacath; patient remains on IV vancomycin in the meantime; ID to make final recommendations on final choice and duration of IV antibiotic therapy 05/15/2020 Patient is seen resting comfortably in bed talking on the phone with family members; denies any specific complaints of nausea/vomiting/diarrhea or abdominal pain Vital signs are stable with a temperature 97.9, pulse 84, respirations 16 and blood pressure 125/82, SpO2 of 92% Patient is on dialysis with permacath on Saturday and Saturday; nephrology recommending catheter placement over the guidewire versus new catheter since patient has few possibilities of excess Patient remains on IV vancomycin; await recommendations from ID Objective - Vital Signs Vital signs: Vital Signs Temp 97.6 F 05/15/20 15:00 Pulse 75 05/15/20 15:00 Resp 16 05/15/20 15:00 BP 124/77 05/15/20 15:00 Pulse Ox 95 05/15/20 15:00 Intake & Output 05/14/20 05/15/20 05/15/20 18:59 06:59 18:59 Intake Total 732 Output Total 987 429 9143 Balance -701 450 1169 Intake: Oral 732 Output: Urine 700 450 400 Uretheral ([facility]) 700 400 Stool 1 Hemodialysis 1500 Other: Voiding Method Indwelling Catheter Indwelling Catheter Indwelling Catheter # Bowel Movements 1 1 1 - Exam PHYSICAL EXAMINATION: GENERAL: The patient is alert and oriented x3, not in any acute distress. Well developed, well nourished. HEENT: Pupils are round and equally reacting to light. EOMI. No scleral icterus. No conjunctival pallor. Normocephalic, atraumatic. No pharyngeal erythema. No thyromegaly. CARDIOVASCULAR: S1 and S2 present. No murmurs, rubs, or gallops. PULMONARY: Chest is clear to auscultation, no wheezing or crackles. ABDOMEN: Soft, nontender, nondistended, normoactive bowel sounds. No palpable organomegaly. MUSCULOSKELETAL: No joint swelling or deformity. EXTREMITIES: No cyanosis, clubbing, or pedal edema. NEUROLOGICAL: Gross neurological examination did not reveal any focal deficits. SKIN: No rashes. - Labs CBC & Chem 7: 05/13/20 06:15 05/13/20 06:15 Labs: Abnormal Lab Results - Last 24 Hours (Table) 05/14/20 05/14/20 05/15/20 Range/Units 17:26 20:30 07:36 POC Glucose (mg/dL) 126 H 156 H 140 H (75-99) mg/dL 05/15/20 Range/Units 11:47 POC Glucose (mg/dL) 131 H (75-99) mg/dL Microbiology - Last 24 Hours (Table) 05/14/20 06:40 Blood Culture - Preliminary Blood No Growth after 24 hours 05/13/20 06:15 Blood Culture - Preliminary Blood No Growth after 48 hours 05/12/20 11:30 Blood Culture Gram Stain - Final Blood Blood Culture - Final Methicillin resist S. aureus 05/12/20 15:02 Blood Culture - Preliminary Blood No Growth after 48 hours Assessment and Plan Assessment: Altered mental status encephalopathy may be toxic encephalopathy secondary to sepsis from staph aureus bacteremia no evidence of urinary tract infection at this time. Rocephin will risk and urine patient will continued on vancomycin and repeat blood cultures will be obtained possible source being dialysis catheter site. -Sepsis and bacteremia secondary to staph aureus bacteremia. -Atrial fibrillation presently rate controlled probably paroxysmal A. fib patient is on Eliquis which will be continued -DVT in the past - type 2 diabetes mellitus -Gastroesophageal reflux disease - hyperlipidemia -Hypertension -Congestive heart failure chronic diastolic dysfunction presently in bit exacerbation and a bit volume overloaded and the dialysis is expected to help with this. -Severe pulmonary hypertension doesn't have any symptom pedal edema and JVD at this time -End-stage renal disease hemodialysis dependent nephrology is consulted. Patient probably has diabetic nephropathy
[2020-05-15] MEDS: CHOLECALCIFEROL 1,000 UNIT TAB PO SCH (17:05)
[2020-05-15] MEDS: ASCORBIC ACID 500 MG TAB PO SCH (17:05)
[2020-05-15 17:15] LABS: Glucose,Whole Blood 132 mg/dL (75-99)
[2020-05-15 20:35] LABS: Glucose,Whole Blood 150 mg/dL (75-99)
[2020-05-15] MEDS: EZETIMIBE 10 MG TAB PO SCH (21:09)
--- NOTE | 2020-05-16 04:05 | PN ---
PROGRESS NOTE DATE OF SERVICE: 05/15/2020 REASON FOR FOLLOWUP: MRSA bacteremia source is PermCath infection. INTERVAL HISTORY: The patient is currently afebrile. The patient is breathing comfortably. Denies having any chest pain, cough. No nausea, no vomiting. No abdominal pain or diarrhea. PHYSICAL EXAMINATION: Blood pressure 127/66, pulse of 74, temperature 98. She is 95% on 4 L nasal cannula. General description is an elderly female lying in bed in no distress. RESPIRATORY SYSTEM: Unlabored breathing, clear to auscultation anteriorly. HEART: S1, S2. Regular rate and rhythm. ABDOMEN: Soft, no tenderness. LABS: Repeat blood culture has been negative. DIAGNOSTIC IMPRESSION AND PLAN: Patient with MRSA bacteremia with concern for PermCath infection. Vascular Surgery has been consulted. Ramon has been put on hold for removal of the PermCath. Continue with vancomycin and monitor clinical course closely. MMODL / IJN: [id number] /
[2020-05-16] MEDS: ASPIRIN 81 MG PO SCH (08:35)
[2020-05-16] MEDS: APIXABAN 2.5 MG TABLET PO SCH ×2 (08:35→17:40)
[2020-05-16] MEDS: PANTOPRAZOLE 40 MG TABLET PO SCH (08:40)
[2020-05-16] MEDS: CALCIUM CARBONATE 500 MG CHEWABLE PO SCH ×3 (08:40→21:13)
[2020-05-16] MEDS: SEVELAMER 800 MG TAB PO SCH ×3 (08:40→17:39)
[2020-05-16] MEDS: INSULIN DETEMIR (LEVEMIR) 100 UNIT/ML SYR SQ SCH (08:41)
[2020-05-16] MEDS: METOPROLOL TARTRATE 50 MG TAB PO SCH ×2 (08:41→21:13)
[2020-05-16] MEDS: FUROSEMIDE 80 MG TAB PO SCH ×2 (08:41→13:04)
[2020-05-16] MEDS: NYSTATIN 100,000UNIT/GM CREAM 30 GM TUBE TOPICAL SCH ×4 (08:41→21:14)
[2020-05-16] MEDS: INSULIN ASPART (NovoLOG) 100 UNIT/ML VIAL SQ SCH ×4 (08:49→21:15)
[2020-05-16 08:57] LABS: Glucose,Whole Blood 120 mg/dL (75-99)
[2020-05-16] MEDS ORDERED: LIDOCAINE 2% (PF) 20 MG/ML 5 ML VIAL ONE (10:07)
--- NOTE | 2020-05-16 11:17 | P.PN ---
Subjective Patient is seen in follow-up for her incisional disease. She is maintained on hemodialysis on Saturday schedule. Currently on antibiotics for MRSA bacteremia. Resting in bed. Denies chest pain or shortness of breath. Last hemodialysis yesterday. Vital signs are stable. General: The patient appeared well nourished and normally developed. HEENT: Head exam is unremarkable. Neck is without jugular venous distension. LUNGS: Lungs are clear to auscultation and percussion. Breath sounds decreased. HEART: Rate and Rhythm are regular. ABDOMEN: Soft, non-distended. Obese. EXTREMITITES: 1+ edema. Chronic skin changes noted. Objective - Vital Signs Vital signs: Vital Signs Temp 96.7 F L 05/16/20 06:56 Pulse 78 05/16/20 06:56 Resp 16 05/16/20 06:56 BP 118/74 05/16/20 06:56 Pulse Ox 95 05/16/20 06:56 Intake & Output 05/15/20 05/16/20 05/16/20 18:59 06:59 18:59 Intake Total 732 150 Output Total 1900 Balance -1168 150 Intake: Oral 732 150 Output: Urine 400 Uretheral ([facility]) 400 Hemodialysis 1500 Other: Voiding Method Indwelling Catheter Diaper Diaper Incontinent Incontinent # Voids 1 # Bowel Movements 1 - Labs CBC & Chem 7: 05/13/20 06:15 05/13/20 06:15 Labs: Abnormal Lab Results - Last 24 Hours (Table) 05/15/20 05/15/20 05/15/20 Range/Units 11:47 17:14 20:33 POC Glucose (mg/dL) 131 H 132 H 150 H (75-99) mg/dL 05/16/20 Range/Units 08:44 POC Glucose (mg/dL) 120 H (75-99) mg/dL Microbiology - Last 24 Hours (Table) 05/14/20 06:40 Blood Culture - Preliminary Blood No Growth after 48 hours 05/13/20 06:15 Blood Culture - Preliminary Blood No Growth after 72 hours 05/12/20 15:02 Blood Culture - Preliminary Blood No Growth after 72 hours Assessment and Plan Plan: Assessment: 1. End-stage renal disease maintained on hemodialysis on Saturday schedule via a permacath. 2. MRSA bacteremia likely source being a permacath. Repeat cultures negative so far. 3. Insulin-dependent diabetes mellitus. 4. Chronic kidney disease mineral bone disease maintained on Renvela. Plan: Hemodialysis tomorrow. Maintain antibiotics. Monitor vancomycin levels. Target level less than 20. Case discussed with vascular surgery as well as infectious disease. Per infectious disease, permacath doesn't need to be removed at this time as she has limited access options. However, if the cultures become positive then the catheter will definitely need to be removed.
[2020-05-16 11:49] LABS: Glucose,Whole Blood 126 mg/dL (75-99)
[2020-05-16 13:15] VITALS: BMI 44.2
--- NOTE | 2020-05-16 14:42 | PN ---
PROGRESS NOTE DATE OF SERVICE: 05/16/2020 REASON FOR FOLLOWUP: MRSA bacteremia with concern for a pulmonary catheter infection. INTERVAL HISTORY: The patient is currently afebrile. The patient is slightly sleepy and lethargic today. No vomiting, no diarrhea or any other changes reported by nursing staff. The patient was unable to provide any history. PHYSICAL EXAMINATION: Blood pressure 119/75 with a pulse of 78, temperature 98.7, she is 94% on 2 L nasal cannula. General description is an elderly female, lying in bed in no distress. RESPIRATORY SYSTEM: Unlabored breathing, clear to auscultation anteriorly. HEART: S1, S2. Regular rate and rhythm. ABDOMEN: Soft, no tenderness. LABS: No new labs have been obtained today. Followup blood culture has been negative. DIAGNOSTIC IMPRESSION AND PLAN: Patient with MRSA bacteremia, concern is likely for the pulmonary catheter infection and high risk of failed liver, off antibiotic therapy alone. This was discussed with vascular surgeon, possible plan for tomorrow for abdominal catheter. Continue vancomycin. at the bedside. Questions were answered. MMODL / IJN: [id number] /
[2020-05-16 17:08] LABS: Glucose,Whole Blood 176 mg/dL (75-99)
[2020-05-16] MEDS: ASCORBIC ACID 500 MG TAB PO SCH (17:39)
[2020-05-16] MEDS: CHOLECALCIFEROL 1,000 UNIT TAB PO SCH (17:39)
[2020-05-16 20:56] LABS: Glucose,Whole Blood 135 mg/dL (75-99)
[2020-05-16] MEDS: EZETIMIBE 10 MG TAB PO SCH (21:13)
--- NOTE | 2020-05-16 22:44 | P.PN ---
Subjective From records Patient was admitted with agitation is better to have urinary tract infection although patient is found to be bacteremic with staph aureus probable source of infection being her dialysis catheter which was put in a while ago. We'll obt ain cultures from the dialysis catheter as well as from periphery infectious disease will be consulted patient patient is alert oriented 3 today. Patient was started on IV vancomycin. Patient is undergoing hemodialysis today. Patient is bit volume overloaded this is expected to improve with the hemodialysis. Her mental status significant improved. She is also on Rocephin which will be discontinued. I do not believe patient has UTI but does have bacteremia and sepsis secondary to staph aureus and possible source being the dialysis catheter. 05/14/2020 Patient is seen and evaluated in room; she is on bedpan and somewhat irritable for not having bowel movements yet Vital signs are stable with a temperature precipitate, pulse 73, respirations 17 and blood pressure 130/80 Patient is being treated for MRSA bacteremia possibly secondary to permacath infection; vascular surgery has been consulted for removal of permacath; patient remains on IV vancomycin in the meantime; ID to make final recommendations on final choice and duration of IV antibiotic therapy 05/15/2020 Patient is seen resting comfortably in bed talking on the phone with family members; denies any specific complaints of nausea/vomiting/diarrhea or abdominal pain Vital signs are stable with a temperature 97.9, pulse 84, respirations 16 and blood pressure 125/82, SpO2 of 92% Patient is on dialysis with permacath on Saturday and Saturday; nephrology recommending catheter placement over the guidewire versus new catheter since patient has few possibilities of excess Patient remains on IV vancomycin; await recommendations from ID Subjective: This is the first time taking care of the patient on 05/16/2020 Patient lying in bed looks tired however she is fully awake and oriented, she was seen eating her lunch, she has good appetite. Denies any specific pain like no chest pain or abdominal pain no vomiting no bowel issues. Hemodialysis catheter is in the right upper chest. Patient has positive blood culture with MRSA. She is covered with IV vancomycin pharmacy to dose and patient is hemodynamically stable. No labs today. Sugar controlled As per decrements no need to remove dialysis catheter and now unless culture came back positive from the catheter. Possible placement of abdominal catheter as per ID team recommendation tomorrow Objective - Vital Signs Vital signs: Vital Signs Temp 96.7 F L 05/16/20 06:56 Pulse 78 05/16/20 06:56 Resp 16 05/16/20 06:56 BP 118/74 05/16/20 06:56 Pulse Ox 95 05/16/20 06:56 Intake & Output 05/15/20 05/16/20 05/16/20 18:59 06:59 18:59 Intake Total 732 300 Output Total 1900 Balance -1168 300 Weight 113.398 kg Intake: Oral 732 300 Output: Urine 400 Uretheral ([facility]) 400 Hemodialysis 1500 Other: Voiding Method Indwelling Catheter Diaper Diaper Incontinent Incontinent # Voids 1 3 # Bowel Movements 1 - Exam GENERAL: The patient is alert and oriented x3, not in any acute distress. Well developed, well nourished. HEENT: Pupils are round and equally reacting to light. EOMI. No scleral icterus. No conjunctival pallor. Normocephalic, atraumatic. No pharyngeal erythema. No thyromegaly. CARDIOVASCULAR: S1 and S2 present. No murmurs, rubs, or gallops. -PULMONARY: Chest is clear to auscultation, no wheezing or crackles. Right upper chest dialysis catheter ABDOMEN: Soft, nontender, nondistended, normoactive bowel sounds. No palpable organomegaly. MUSCULOSKELETAL: No joint swelling or deformity. EXTREMITIES: No cyanosis, clubbing, or pedal edema. NEUROLOGICAL: Gross neurological examination did not reveal any focal deficits. SKIN: No rashes. no petechiae. - Labs CBC & Chem 7: 05/13/20 06:15 05/13/20 06:15 Labs: Abnormal Lab Results - Last 24 Hours (Table) 05/15/20 05/15/20 05/16/20 Range/Units 17:14 20:33 08:44 POC Glucose (mg/dL) 132 H 150 H 120 H (75-99) mg/dL 05/16/20 Range/Units 11:41 POC Glucose (mg/dL) 126 H (75-99) mg/dL Microbiology - Last 24 Hours (Table) 05/14/20 06:40 Blood Culture - Preliminary Blood No Growth after 48 hours 05/13/20 06:15 Blood Culture - Preliminary Blood No Growth after 72 hours 05/12/20 15:02 Blood Culture - Preliminary Blood No Growth after 72 hours Assessment and Plan Assessment: -MRSA bacteremia -End-stage renal disease on hemodialysis Chronic hypoxic respiratory failure -A. fib on Eliquis -History of DVT on blood thinner -Diabetes mellitus - hyperlipidemia -Hypertension -Congestive heart failure chronic diastolic dysfunction presently in bit exacerbation and a bit volume overloaded and the dialysis is expected to help with this. -Severe pulmonary hypertension doesn't have any symptom pedal edema and JVD at this time -End-stage renal disease hemodialysis dependent nephrology is consulted. Patient probably has diabetic nephropathy Plan: This is a pleasant 75 years old female who presents with MRSA bacteremia. Continue with hemodialysis as per nephrology team. Continue with IV vancomycin. Follow-up with recommendation by nephrology, vascular surgery and infectious disease recommendation whether to replace the dialysis catheter or no Labs and medication were reviewed.. Continue same treatment. Continue with symptomatic treatment. Resume home medication. Monitor lytes and vitals. DVT and GI prophylaxis. Further recommendationsas per clinical course of the patient DVT prophylaxis: Eliquis GI Prophylaxis: ppi
[2020-05-17 07:00] LABS: Glucose,Whole Blood 127 mg/dL (75-99)
[2020-05-17] MEDS: INSULIN ASPART (NovoLOG) 100 UNIT/ML VIAL SQ SCH ×4 (07:47→20:52)
[2020-05-17] MEDS: PANTOPRAZOLE 40 MG TABLET PO SCH (08:03)
[2020-05-17] MEDS: SEVELAMER 800 MG TAB PO SCH ×3 (08:03→17:22)
[2020-05-17] MEDS: INSULIN DETEMIR (LEVEMIR) 100 UNIT/ML SYR SQ SCH (08:03)
[2020-05-17] MEDS: ASPIRIN 81 MG PO SCH (08:03)
[2020-05-17] MEDS: APIXABAN 2.5 MG TABLET PO SCH ×2 (08:03→17:23)
[2020-05-17] MEDS: CALCIUM CARBONATE 500 MG CHEWABLE PO SCH ×3 (08:03→17:23)
[2020-05-17] MEDS: NYSTATIN 100,000UNIT/GM CREAM 30 GM TUBE TOPICAL SCH ×4 (08:04→20:52)
[2020-05-17] MEDS: MIDODRINE 5 MG TAB PO SCH (08:04)
[2020-05-17] MEDS: traMADol 50 MG TAB PO PRN (10:04)
--- NOTE | 2020-05-17 10:56 | P.PN ---
Subjective Patient is seen in follow-up for her incisional disease. She is maintained on hemodialysis on Saturday schedule. Currently on antibiotics for MRSA bacteremia. Tolerating dialysis well. Denies chest pain or shortness of breath. Vital signs are stable. General: The patient appeared well nourished and normally developed. HEENT: Head exam is unremarkable. Neck is without jugular venous distension. LUNGS: Lungs are clear to auscultation and percussion. Breath sounds decreased. HEART: Rate and Rhythm are regular. ABDOMEN: Soft, non-distended. Obese. EXTREMITITES: 1+ edema. Chronic skin changes noted. Objective - Vital Signs Vital signs: Vital Signs Temp 97.6 F 05/17/20 08:01 Pulse 74 05/17/20 08:01 Resp 16 05/17/20 08:01 BP 132/87 05/17/20 08:01 Pulse Ox 98 05/17/20 08:01 Intake & Output 05/16/20 05/17/20 05/17/20 18:59 06:59 18:59 Intake Total 300 Balance 300 Weight 113.398 kg 84.5 kg Intake: Oral 300 Other: Voiding Method Diaper Diaper Incontinent Incontinent # Voids 1 2 1 # Bowel Movements 1 1 - Labs CBC & Chem 7: 05/13/20 06:15 05/13/20 06:15 Labs: Abnormal Lab Results - Last 24 Hours (Table) 05/16/20 05/16/20 05/16/20 Range/Units 11:41 17:06 20:49 POC Glucose (mg/dL) 126 H 176 H 135 H (75-99) mg/dL 05/17/20 Range/Units 06:57 POC Glucose (mg/dL) 127 H (75-99) mg/dL Microbiology - Last 24 Hours (Table) 05/14/20 06:40 Blood Culture - Preliminary Blood No Growth after 72 hours 05/13/20 06:15 Blood Culture - Preliminary Blood No Growth after 96 hours 05/12/20 15:02 Blood Culture - Preliminary Blood No Growth after 96 hours Assessment and Plan Plan: Assessment: 1. End-stage renal disease maintained on hemodialysis on Saturday schedule via a permacath. 2. MRSA bacteremia likely source being a permacath. Repeat cultures negative so far. 3. Insulin-dependent diabetes mellitus. 4. Chronic kidney disease mineral bone disease maintained on Renvela. Plan: Currently seen while undergoing hemodialysis. Maintain antibiotics. Monitor vancomycin levels. Target level less than 20. Case discussed with vascular surgery as well as infectious disease. Per infectious disease, permacath doesn't need to be removed at this time as she has limited access options. However, if the cultures become positive then the catheter will definitely need to be removed.
[2020-05-17 11:31] LABS: Glucose,Whole Blood 153 mg/dL (75-99)
--- NOTE | 2020-05-17 13:40 | P.PN ---
Subjective From records Patient was admitted with agitation is better to have urinary tract infection although patient is found to be bacteremic with staph aureus probable source of infection being her dialysis catheter which was put in a while ago. We'll obt ain cultures from the dialysis catheter as well as from periphery infectious disease will be consulted patient patient is alert oriented 3 today. Patient was started on IV vancomycin. Patient is undergoing hemodialysis today. Patient is bit volume overloaded this is expected to improve with the hemodialysis. Her mental status significant improved. She is also on Rocephin which will be discontinued. I do not believe patient has UTI but does have bacteremia and sepsis secondary to staph aureus and possible source being the dialysis catheter. 05/14/2020 Patient is seen and evaluated in room; she is on bedpan and somewhat irritable for not having bowel movements yet Vital signs are stable with a temperature precipitate, pulse 73, respirations 17 and blood pressure 130/80 Patient is being treated for MRSA bacteremia possibly secondary to permacath infection; vascular surgery has been consulted for removal of permacath; patient remains on IV vancomycin in the meantime; ID to make final recommendations on final choice and duration of IV antibiotic therapy 05/15/2020 Patient is seen resting comfortably in bed talking on the phone with family members; denies any specific complaints of nausea/vomiting/diarrhea or abdominal pain Vital signs are stable with a temperature 97.9, pulse 84, respirations 16 and blood pressure 125/82, SpO2 of 92% Patient is on dialysis with permacath on Saturday and Saturday; nephrology recommending catheter placement over the guidewire versus new catheter since patient has few possibilities of excess Patient remains on IV vancomycin; await recommendations from ID Subjective: This is the first time taking care of the patient on 05/16/2020 Patient lying in bed looks tired however she is fully awake and oriented, she was seen eating her lunch, she has good appetite. Denies any specific pain like no chest pain or abdominal pain no vomiting no bowel issues. Hemodialysis catheter is in the right upper chest. Patient has positive blood culture with MRSA. She is covered with IV vancomycin pharmacy to dose and patient is hemodynamically stable. No labs today. Sugar controlled As per decrements no need to remove dialysis catheter and now unless culture came back positive from the catheter. Possible placement of abdominal catheter as per ID team recommendation tomorrow 05/17/2020 Patient lying comfortable in bed. cath is still functioning in the right upper chest. First culture was growing MRSA, repeat culture are still pending, there are negative so far. Patient remains on IV vancomycin pharmacy to dose Possible discharge in 24-48 hours once cultures are back and patient keeps improving Objective - Vital Signs Vital signs: Vital Signs Temp 97.2 F L 05/17/20 12:45 Pulse 76 05/17/20 12:45 Resp 18 05/17/20 12:45 BP 120/68 05/17/20 12:45 Pulse Ox 98 05/17/20 08:01 Intake & Output 05/16/20 05/17/20 05/17/20 18:59 06:59 18:59 Intake Total 300 Output Total 1999 Balance 300 -1999 Weight 113.398 kg 84.5 kg Intake: Oral 300 Output: Hemodialysis 1999 Other: Voiding Method Diaper Diaper Incontinent Incontinent # Voids 1 2 1 # Bowel Movements 1 1 - Exam GENERAL: The patient is alert and oriented x3, not in any acute distress. Well developed, well nourished. HEENT: Pupils are round and equally reacting to light. EOMI. No scleral icterus. No conjunctival pallor. Normocephalic, atraumatic. No pharyngeal erythema. No thyromegaly. CARDIOVASCULAR: S1 and S2 present. No murmurs, rubs, or gallops. -PULMONARY: Chest is clear to auscultation, no wheezing or crackles. Right upper chest dialysis catheter ABDOMEN: Soft, nontender, nondistended, normoactive bowel sounds. No palpable organomegaly. MUSCULOSKELETAL: No joint swelling or deformity. EXTREMITIES: No cyanosis, clubbing, or pedal edema. NEUROLOGICAL: Gross neurological examination did not reveal any focal deficits. SKIN: No rashes. no petechiae. - Labs CBC & Chem 7: 05/13/20 06:15 05/13/20 06:15 Labs: Abnormal Lab Results - Last 24 Hours (Table) 05/16/20 05/16/20 05/17/20 Range/Units 17:06 20:49 06:57 POC Glucose (mg/dL) 176 H 135 H 127 H (75-99) mg/dL 05/17/20 Range/Units 11:27 POC Glucose (mg/dL) 153 H (75-99) mg/dL Microbiology - Last 24 Hours (Table) 05/14/20 06:40 Blood Culture - Preliminary Blood No Growth after 72 hours 05/13/20 06:15 Blood Culture - Preliminary Blood No Growth after 96 hours 05/12/20 15:02 Blood Culture - Preliminary Blood No Growth after 96 hours Assessment and Plan Assessment: -MRSA bacteremia -End-stage renal disease on hemodialysis Chronic hypoxic respiratory failure -A. fib on Eliquis -History of DVT on blood thinner -Diabetes mellitus - hyperlipidemia -Hypertension -Congestive heart failure chronic diastolic dysfunction presently in bit exacerbation and a bit volume overloaded and the dialysis is expected to help with this. -Severe pulmonary hypertension doesn't have any symptom pedal edema and JVD at this time -End-stage renal disease hemodialysis dependent nephrology is consulted. Patient probably has diabetic nephropathy Plan: This is a pleasant 75 years old female who presents with MRSA bacteremia. Continue with hemodialysis as per nephrology team. Continue with IV vancomycin. Follow-up with recommendation by nephrology, vascular surgery and infectious disease recommendation whether to replace the dialysis catheter or no Labs and medication were reviewed.. Continue same treatment. Continue with symptomatic treatment. Resume home medication. Monitor lytes and vitals. DVT and GI prophylaxis. Further recommendationsas per clinical course of the patient DVT prophylaxis: Eliquis GI Prophylaxis: ppi
[2020-05-17] MEDS ORDERED: VANCOMYCIN 1,750 MG in SODIUM CHLORIDE 0.9% 500 ML 500 ML IVPB ONE (16:00)
[2020-05-17 17:03] LABS: Glucose,Whole Blood 144 mg/dL (75-99)
[2020-05-17] MEDS: CHOLECALCIFEROL 1,000 UNIT TAB PO SCH (17:22)
[2020-05-17] MEDS: FUROSEMIDE 80 MG TAB PO SCH (17:23)
[2020-05-17] MEDS: ASCORBIC ACID 500 MG TAB PO SCH (17:23)
[2020-05-17 20:35] LABS: Glucose,Whole Blood 181 mg/dL (75-99)
[2020-05-17] MEDS: ACETAMINOPHEN TAB 325 MG TAB PO PRN (20:51)
[2020-05-17] MEDS: EZETIMIBE 10 MG TAB PO SCH (20:51)
[2020-05-17] MEDS: METOPROLOL TARTRATE 50 MG TAB PO SCH (20:52)
[2020-05-17 21:34] LABS: Hepatitis B Surface AB- Quant 3.5 mIU/mL; Hepatitis B Surface Antibody Non-Reactive (Non-Reactive); Hepatitis B Surface Antigen Non-Reactive (Non-Reactive)
--- NOTE | 2020-05-17 23:14 | PN ---
PROGRESS NOTE DATE OF SERVICE: 05/17/2020 REASON FOR FOLLOWUP: MRSA bacteremia and concern for PermCath infection. INTERVAL HISTORY: The patient is currently afebrile. The patient is breathing comfortably. Denies having any chest pain or shortness of breath or cough. No nausea, vomiting, abdominal pain or diarrhea. PHYSICAL EXAMINATION: Blood pressure 107/69, pulse of 73, temperature 97.3. She is 98% on room air. General description is an elderly female lying in bed in no distress. RESPIRATORY SYSTEM: Unlabored breathing. Clear to auscultation anteriorly. HEART: S1, S2. Regular rate and rhythm. ABDOMEN: Soft. No tenderness. LABS: Follow-up blood culture has been negative. DIAGNOSTIC IMPRESSION AND PLAN: Patient with methicillin-resistant Staphylococcus aeruginosa bacteremia with concern for PermCath infection. Patient's case was discussed in detail with the vascular surgeon, who is concerned about patient being a high risk candidate and wants to try IV antibiotics alone. This has been discussed in detail with them, as antibiotics alone will fail and she will have recurrence of bacteremia. She is currently on vancomycin. Will discuss further with Nephrology and continue with supportive care. MMODL / IJN: [id number] /
[2020-05-18 06:58] LABS: Glucose,Whole Blood 145 mg/dL (75-99)
[2020-05-18] MEDS: FUROSEMIDE 80 MG TAB PO SCH ×2 (08:03→13:57)
[2020-05-18] MEDS: ASPIRIN 81 MG PO SCH (08:03)
[2020-05-18] MEDS: APIXABAN 2.5 MG TABLET PO SCH ×2 (08:03→17:35)
[2020-05-18] MEDS: CALCIUM CARBONATE 500 MG CHEWABLE PO SCH ×3 (08:04→23:11)
[2020-05-18] MEDS: INSULIN DETEMIR (LEVEMIR) 100 UNIT/ML SYR SQ SCH (08:05)
[2020-05-18] MEDS: INSULIN ASPART (NovoLOG) 100 UNIT/ML VIAL SQ SCH ×4 (08:07→20:41)
[2020-05-18] MEDS: SEVELAMER 800 MG TAB PO SCH ×3 (08:17→17:35)
[2020-05-18] MEDS: METOPROLOL TARTRATE 50 MG TAB PO SCH ×2 (08:21→20:41)
[2020-05-18] MEDS: PANTOPRAZOLE 40 MG TABLET PO SCH (08:21)
[2020-05-18] MEDS: BYDUREON BCISE SQ SCH (09:20)
[2020-05-18] MEDS: NYSTATIN 100,000UNIT/GM CREAM 30 GM TUBE TOPICAL SCH ×4 (09:30→20:42)
--- NOTE | 2020-05-18 09:51 | P.PN ---
Subjective Patient is seen in follow-up for end-stage renal disease. She is maintained on hemodialysis on Saturday schedule. Currently on antibiotics for MRSA bacteremia. Tolerating dialysis well. Denies chest pain or shortness of breath. Recent cultures negative. Vital signs are stable. General: The patient appeared well nourished and normally developed. HEENT: Head exam is unremarkable. Neck is without jugular venous distension. LUNGS: Lungs are clear to auscultation and percussion. Breath sounds decreased. HEART: Rate and Rhythm are regular. ABDOMEN: Soft, non-distended. Obese. EXTREMITITES: 1+ edema. Chronic skin changes noted. Objective - Vital Signs Vital signs: Vital Signs Temp 98.2 F 05/18/20 07:00 Pulse 75 05/18/20 07:00 Resp 19 05/18/20 07:00 BP 121/78 05/18/20 07:00 Pulse Ox 92 L 05/18/20 07:00 Intake & Output 05/17/20 05/18/20 05/18/20 18:59 06:59 18:59 Intake Total 150 150 Output Total 1999 1 Balance -1850 -1 150 Weight 85.2 kg Intake: Oral 150 150 Output: Stool 1 Hemodialysis 1999 Other: Voiding Method Diaper Diaper Incontinent Incontinent # Voids 2 1 # Bowel Movements 1 1 - Labs CBC & Chem 7: 05/13/20 06:15 05/13/20 06:15 Labs: Abnormal Lab Results - Last 24 Hours (Table) 05/17/20 05/17/20 05/17/20 Range/Units 11:27 17:01 20:33 POC Glucose (mg/dL) 153 H 144 H 181 H (75-99) mg/dL 05/18/20 Range/Units 06:57 POC Glucose (mg/dL) 145 H (75-99) mg/dL Microbiology - Last 24 Hours (Table) 05/14/20 06:40 Blood Culture - Preliminary Blood No Growth after 96 hours 05/13/20 06:15 Blood Culture - Preliminary Blood No Growth after 120 hours 05/12/20 15:02 Blood Culture - Preliminary Blood No Growth after 120 hours Assessment and Plan Plan: Assessment: 1. End-stage renal disease maintained on hemodialysis on Saturday schedule via a permacath. 2. MRSA bacteremia likely source being a permacath. Repeat cultures negative so far. 3. Insulin-dependent diabetes mellitus. 4. Chronic kidney disease mineral bone disease maintained on Renvela. Plan: Hemodialysis tomorrow. Maintain antibiotics. Monitor vancomycin levels. Target level less than 20. Case discussed with vascular surgery as well as infectious disease. Per infectious disease, permacath doesn't need to be removed at this time as she has limited access options. However, if the cultures become positive then the catheter will definitely need to be removed.
--- NOTE | 2020-05-18 11:39 | P.PN ---
Subjective From records Patient was admitted with agitation is better to have urinary tract infection although patient is found to be bacteremic with staph aureus probable source of infection being her dialysis catheter which was put in a while ago. We'll obt ain cultures from the dialysis catheter as well as from periphery infectious disease will be consulted patient patient is alert oriented 3 today. Patient was started on IV vancomycin. Patient is undergoing hemodialysis today. Patient is bit volume overloaded this is expected to improve with the hemodialysis. Her mental status significant improved. She is also on Rocephin which will be discontinued. I do not believe patient has UTI but does have bacteremia and sepsis secondary to staph aureus and possible source being the dialysis catheter. 05/14/2020 Patient is seen and evaluated in room; she is on bedpan and somewhat irritable for not having bowel movements yet Vital signs are stable with a temperature precipitate, pulse 73, respirations 17 and blood pressure 130/80 Patient is being treated for MRSA bacteremia possibly secondary to permacath infection; vascular surgery has been consulted for removal of permacath; patient remains on IV vancomycin in the meantime; ID to make final recommendations on final choice and duration of IV antibiotic therapy 05/15/2020 Patient is seen resting comfortably in bed talking on the phone with family members; denies any specific complaints of nausea/vomiting/diarrhea or abdominal pain Vital signs are stable with a temperature 97.9, pulse 84, respirations 16 and blood pressure 125/82, SpO2 of 92% Patient is on dialysis with permacath on Saturday and Saturday; nephrology recommending catheter placement over the guidewire versus new catheter since patient has few possibilities of excess Patient remains on IV vancomycin; await recommendations from ID Subjective: This is the first time taking care of the patient on 05/16/2020 Patient lying in bed looks tired however she is fully awake and oriented, she was seen eating her lunch, she has good appetite. Denies any specific pain like no chest pain or abdominal pain no vomiting no bowel issues. Hemodialysis catheter is in the right upper chest. Patient has positive blood culture with MRSA. She is covered with IV vancomycin pharmacy to dose and patient is hemodynamically stable. No labs today. Sugar controlled As per decrements no need to remove dialysis catheter and now unless culture came back positive from the catheter. Possible placement of abdominal catheter as per ID team recommendation tomorrow 05/17/2020 Patient lying comfortable in bed. cath is still functioning in the right upper chest. First culture was growing MRSA, repeat culture are still pending, there are negative so far. Patient remains on IV vancomycin pharmacy to dose Possible discharge in 24-48 hours once cultures are back and patient keeps improving 05/18/2020 Patient is clinically stable. She is hemodynamically stable Labs reviewed. today. sugar controlled pending final results of the culture drawn from her dialysis catheter Continue with hemodialysis per nephrology Team Objective - Vital Signs Vital signs: Vital Signs Temp 98.2 F 05/18/20 07:00 Pulse 75 05/18/20 07:00 Resp 19 05/18/20 07:00 BP 121/78 05/18/20 07:00 Pulse Ox 92 L 05/18/20 07:00 Intake & Output 05/17/20 05/18/20 05/18/20 18:59 06:59 18:59 Intake Total 150 150 Output Total 1999 1 30 Balance -1850 -1 120 Weight 85.2 kg Intake: Oral 150 150 Output: Urine 30 Stool 1 Hemodialysis 1999 Other: Voiding Method Diaper Diaper Incontinent Incontinent # Voids 2 1 1 # Bowel Movements 1 1 1 - Exam GENERAL: The patient is alert and oriented x3, not in any acute distress. Well developed, well nourished. HEENT: Pupils are round and equally reacting to light. EOMI. No scleral icterus. No conjunctival pallor. Normocephalic, atraumatic. No pharyngeal erythema. No thyromegaly. CARDIOVASCULAR: S1 and S2 present. No murmurs, rubs, or gallops. -PULMONARY: Chest is clear to auscultation, no wheezing or crackles. Right upper chest dialysis catheter ABDOMEN: Soft, nontender, nondistended, normoactive bowel sounds. No palpable organomegaly. MUSCULOSKELETAL: No joint swelling or deformity. EXTREMITIES: No cyanosis, clubbing, or pedal edema. NEUROLOGICAL: Gross neurological examination did not reveal any focal deficits. SKIN: No rashes. no petechiae. - Labs CBC & Chem 7: 05/13/20 06:15 05/13/20 06:15 Labs: Abnormal Lab Results - Last 24 Hours (Table) 05/17/20 05/17/20 05/18/20 Range/Units 17:01 20:33 06:57 POC Glucose (mg/dL) 144 H 181 H 145 H (75-99) mg/dL Microbiology - Last 24 Hours (Table) 05/14/20 06:40 Blood Culture - Preliminary Blood No Growth after 96 hours 05/13/20 06:15 Blood Culture - Preliminary Blood No Growth after 120 hours 05/12/20 15:02 Blood Culture - Preliminary Blood No Growth after 120 hours Assessment and Plan Assessment: -MRSA bacteremia -End-stage renal disease on hemodialysis Chronic hypoxic respiratory failure -A. fib on Eliquis -History of DVT on blood thinner -Diabetes mellitus - hyperlipidemia -Hypertension -Congestive heart failure chronic diastolic dysfunction presently in bit exacerbation and a bit volume overloaded and the dialysis is expected to help with this. -Severe pulmonary hypertension doesn't have any symptom pedal edema and JVD at this time -End-stage renal disease hemodialysis dependent nephrology is consulted. Patient probably has diabetic nephropathy Plan: This is a pleasant 75 years old female who presents with MRSA bacteremia. Continue with hemodialysis as per nephrology team. Continue with IV vancomycin. Follow-up with recommendation by nephrology, vascular surgery and infectious disease recommendation whether to replace the dialysis catheter or no Labs and medication were reviewed.. Continue same treatment. Continue with symptomatic treatment. Resume home medication. Monitor lytes and vitals. DVT and GI prophylaxis. Further recommendationsas per clinical course of the patient DVT prophylaxis: Eliquis GI Prophylaxis: ppi
[2020-05-18 11:41] LABS: Glucose,Whole Blood 161 mg/dL (75-99)
[2020-05-18 16:38] LABS: Glucose,Whole Blood 160 mg/dL (75-99)
[2020-05-18 17:09] LABS: Glucose,Whole Blood 144 mg/dL (75-99)
[2020-05-18] MEDS: ASCORBIC ACID 500 MG TAB PO SCH (17:35)
[2020-05-18] MEDS: CHOLECALCIFEROL 1,000 UNIT TAB PO SCH (17:35)
[2020-05-18 20:28] LABS: Glucose,Whole Blood 167 mg/dL (75-99)
[2020-05-18] MEDS: EZETIMIBE 10 MG TAB PO SCH (20:41)
[2020-05-19 07:13] LABS: Glucose,Whole Blood 148 mg/dL (75-99)
[2020-05-19] MEDS: HYDROCORTISONE 1% CREAM 30 GM TUBE TOPICAL PRN ×2 (07:24→21:43)
[2020-05-19] MEDS: INSULIN DETEMIR (LEVEMIR) 100 UNIT/ML SYR SQ SCH (07:25)
[2020-05-19] MEDS: CALCIUM CARBONATE 500 MG CHEWABLE PO SCH ×3 (07:25→21:41)
[2020-05-19] MEDS: ASPIRIN 81 MG PO SCH (07:25)
[2020-05-19] MEDS: APIXABAN 2.5 MG TABLET PO SCH ×2 (07:25→16:51)
[2020-05-19] MEDS: INSULIN ASPART (NovoLOG) 100 UNIT/ML VIAL SQ SCH ×4 (07:25→21:41)
[2020-05-19] MEDS: SEVELAMER 800 MG TAB PO SCH ×3 (07:26→16:51)
[2020-05-19] MEDS: PANTOPRAZOLE 40 MG TABLET PO SCH (07:26)
[2020-05-19] MEDS: NYSTATIN 100,000UNIT/GM CREAM 30 GM TUBE TOPICAL SCH ×4 (07:27→21:42)
[2020-05-19] MEDS: FLUTICASONE 50MCG/SPRAY NASAL 16GM EA NOSTRIL PRN (07:27)
[2020-05-19] MEDS: MIDODRINE 5 MG TAB PO SCH (07:37)
--- NOTE | 2020-05-19 09:51 | P.PN ---
Subjective Patient is seen in follow-up for end-stage renal disease. She is maintained on hemodialysis on Saturday schedule. Currently on antibiotics for MRSA bacteremia. Denies chest pain or shortness of breath. Recent cultures negative. Having breakfast. No active complaints. Vital signs are stable. General: The patient appeared well nourished and normally developed. HEENT: Head exam is unremarkable. Neck is without jugular venous distension. LUNGS: Lungs are clear to auscultation and percussion. Breath sounds decreased. HEART: Rate and Rhythm are regular. ABDOMEN: Soft, non-distended. Obese. EXTREMITITES: 1+ edema. Chronic skin changes noted. Objective - Vital Signs Vital signs: Vital Signs Temp 97.8 F 05/19/20 07:00 Pulse 77 05/19/20 07:37 Resp 20 05/19/20 07:37 BP 122/75 05/19/20 07:00 Pulse Ox 98 05/19/20 07:00 Intake & Output 05/18/20 05/19/20 05/19/20 18:59 06:59 18:59 Intake Total 300 100 Output Total 30 1 Balance 270 100 -1 Weight 78 kg Intake: Oral 300 100 Output: Urine 30 Stool 1 Other: Voiding Method Bedside Commode Bedside Commode Diaper Diaper Incontinent Incontinent # Voids 2 3 # Bowel Movements 1 - Labs CBC & Chem 7: 05/13/20 06:15 05/13/20 06:15 Labs: Abnormal Lab Results - Last 24 Hours (Table) 05/18/20 05/18/20 05/18/20 Range/Units 11:37 16:36 17:07 POC Glucose (mg/dL) 161 H 160 H 144 H (75-99) mg/dL 05/18/20 05/19/20 Range/Units 20:21 06:53 POC Glucose (mg/dL) 167 H 148 H (75-99) mg/dL Microbiology - Last 24 Hours (Table) 05/14/20 06:40 Blood Culture - Preliminary Blood No Growth after 120 hours 05/13/20 06:15 Blood Culture - Final Blood No Growth after 144 hours 05/12/20 15:02 Blood Culture - Final Blood No Growth after 144 hours Assessment and Plan Plan: Assessment: 1. End-stage renal disease maintained on hemodialysis on Saturday schedule via a permacath. 2. MRSA bacteremia likely source being a permacath. Repeat cultures negative so far. 3. Insulin-dependent diabetes mellitus. 4. Chronic kidney disease mineral bone disease maintained on Renvela. Plan: Hemodialysis today. Maintain antibiotics. Monitor vancomycin levels. Target level less than 20. Case discussed with vascular surgery as well as infectious disease. Per infectious disease, permacath doesn't need to be removed at this time as she has limited access options. However, if the cultures become positive then the catheter will definitely need to be removed.
[2020-05-19] MEDS: ACETAMINOPHEN TAB 325 MG TAB PO PRN (10:27)
--- NOTE | 2020-05-19 11:16 | P.PN ---
Subjective From records Patient was admitted with agitation is better to have urinary tract infection although patient is found to be bacteremic with staph aureus probable source of infection being her dialysis catheter which was put in a while ago. We'll obt ain cultures from the dialysis catheter as well as from periphery infectious disease will be consulted patient patient is alert oriented 3 today. Patient was started on IV vancomycin. Patient is undergoing hemodialysis today. Patient is bit volume overloaded this is expected to improve with the hemodialysis. Her mental status significant improved. She is also on Rocephin which will be discontinued. I do not believe patient has UTI but does have bacteremia and sepsis secondary to staph aureus and possible source being the dialysis catheter. 05/14/2020 Patient is seen and evaluated in room; she is on bedpan and somewhat irritable for not having bowel movements yet Vital signs are stable with a temperature precipitate, pulse 73, respirations 17 and blood pressure 130/80 Patient is being treated for MRSA bacteremia possibly secondary to permacath infection; vascular surgery has been consulted for removal of permacath; patient remains on IV vancomycin in the meantime; ID to make final recommendations on final choice and duration of IV antibiotic therapy 05/15/2020 Patient is seen resting comfortably in bed talking on the phone with family members; denies any specific complaints of nausea/vomiting/diarrhea or abdominal pain Vital signs are stable with a temperature 97.9, pulse 84, respirations 16 and blood pressure 125/82, SpO2 of 92% Patient is on dialysis with permacath on Saturday and Saturday; nephrology recommending catheter placement over the guidewire versus new catheter since patient has few possibilities of excess Patient remains on IV vancomycin; await recommendations from ID Subjective: This is the first time taking care of the patient on 05/16/2020 Patient lying in bed looks tired however she is fully awake and oriented, she was seen eating her lunch, she has good appetite. Denies any specific pain like no chest pain or abdominal pain no vomiting no bowel issues. Hemodialysis catheter is in the right upper chest. Patient has positive blood culture with MRSA. She is covered with IV vancomycin pharmacy to dose and patient is hemodynamically stable. No labs today. Sugar controlled As per decrements no need to remove dialysis catheter and now unless culture came back positive from the catheter. Possible placement of abdominal catheter as per ID team recommendation tomorrow 05/17/2020 Patient lying comfortable in bed. cath is still functioning in the right upper chest. First culture was growing MRSA, repeat culture are still pending, there are negative so far. Patient remains on IV vancomycin pharmacy to dose Possible discharge in 24-48 hours once cultures are back and patient keeps improving 05/18/2020 Patient is clinically stable. She is hemodynamically stable Labs reviewed. today. sugar controlled pending final results of the culture drawn from her dialysis catheter Continue with hemodialysis per nephrology Team 05/19/2020 Patient today she feels tired, no other specific complaints Hemodynamically stable. 2 of the pending blood culture came back no growth as final results one last one is still pending the final result but no growth so far after 120 hours Patient remains on antibiotics with IV vancomycin pharmacy to dose. ID team on the case Objective - Vital Signs Vital signs: Vital Signs Temp 97.8 F 05/19/20 07:00 Pulse 77 05/19/20 07:37 Resp 20 05/19/20 07:37 BP 122/75 05/19/20 07:00 Pulse Ox 98 05/19/20 07:00 Intake & Output 05/18/20 05/19/20 05/19/20 18:59 06:59 18:59 Intake Total 300 100 Output Total 30 1 Balance 270 100 -1 Weight 78 kg Intake: Oral 300 100 Output: Urine 30 Stool 1 Other: Voiding Method Bedside Commode Bedside Commode Diaper Diaper Incontinent Incontinent # Voids 2 3 # Bowel Movements 1 - Exam GENERAL: The patient is alert and oriented x3, not in any acute distress. Well developed, well nourished. HEENT: Pupils are round and equally reacting to light. EOMI. No scleral icterus. No conjunctival pallor. Normocephalic, atraumatic. No pharyngeal erythema. No thyromegaly. CARDIOVASCULAR: S1 and S2 present. No murmurs, rubs, or gallops. -PULMONARY: Chest is clear to auscultation, no wheezing or crackles. Right upper chest dialysis catheter ABDOMEN: Soft, nontender, nondistended, normoactive bowel sounds. No palpable organomegaly. MUSCULOSKELETAL: No joint swelling or deformity. EXTREMITIES: No cyanosis, clubbing, or pedal edema. NEUROLOGICAL: Gross neurological examination did not reveal any focal deficits. SKIN: No rashes. no petechiae. - Labs CBC & Chem 7: 05/13/20 06:15 05/13/20 06:15 Labs: Abnormal Lab Results - Last 24 Hours (Table) 05/18/20 05/18/20 05/18/20 Range/Units 11:37 16:36 17:07 POC Glucose (mg/dL) 161 H 160 H 144 H (75-99) mg/dL 05/18/20 05/19/20 Range/Units 20:21 06:53 POC Glucose (mg/dL) 167 H 148 H (75-99) mg/dL Microbiology - Last 24 Hours (Table) 05/14/20 06:40 Blood Culture - Preliminary Blood No Growth after 120 hours 05/13/20 06:15 Blood Culture - Final Blood No Growth after 144 hours 05/12/20 15:02 Blood Culture - Final Blood No Growth after 144 hours Assessment and Plan Assessment: -MRSA bacteremia -End-stage renal disease on hemodialysis Chronic hypoxic respiratory failure -A. fib on Eliquis -History of DVT on blood thinner -Diabetes mellitus - hyperlipidemia -Hypertension -Congestive heart failure chronic diastolic dysfunction presently in bit exacerbation and a bit volume overloaded and the dialysis is expected to help with this. -Severe pulmonary hypertension doesn't have any symptom pedal edema and JVD at this time -End-stage renal disease hemodialysis dependent nephrology is consulted. Patient probably has diabetic nephropathy Plan: This is a pleasant 75 years old female who presents with MRSA bacteremia. Continue with hemodialysis as per nephrology team. Continue with IV vancomycin. Follow-up with recommendation by nephrology, vascular surgery and infectious disease recommendation whether to replace the dialysis catheter or no Labs and medication were reviewed.. Continue same treatment. Continue with symptomatic treatment. Resume home medication. Monitor lytes and vitals. DVT and GI prophylaxis. Further recommendationsas per clinical course of the patient DVT prophylaxis: Eliquis GI Prophylaxis: ppi
[2020-05-19 11:34] LABS: Glucose,Whole Blood 118 mg/dL (75-99)
[2020-05-19] MEDS: FUROSEMIDE 80 MG TAB PO SCH (15:05)
[2020-05-19 16:47] LABS: Glucose,Whole Blood 185 mg/dL (75-99)
[2020-05-19] MEDS: ASCORBIC ACID 500 MG TAB PO SCH (16:51)
[2020-05-19] MEDS: CHOLECALCIFEROL 1,000 UNIT TAB PO SCH (16:51)
[2020-05-19 20:40] LABS: Glucose,Whole Blood 163 mg/dL (75-99)
[2020-05-19] MEDS: METOPROLOL TARTRATE 50 MG TAB PO SCH (21:41)
[2020-05-19] MEDS: EZETIMIBE 10 MG TAB PO SCH (21:41)
[2020-05-20 06:44] LABS: Glucose,Whole Blood 152 mg/dL (75-99)
[2020-05-20 06:54] VITALS: BP 97/65; PULSE 74; RESP 16; TEMP 98.6
[2020-05-20] MEDS: METOPROLOL TARTRATE 50 MG TAB PO SCH (07:30)
[2020-05-20] MEDS: ASPIRIN 81 MG PO SCH (07:36)
[2020-05-20] MEDS: APIXABAN 2.5 MG TABLET PO SCH (07:36)
[2020-05-20] MEDS: CALCIUM CARBONATE 500 MG CHEWABLE PO SCH (07:36)
[2020-05-20] MEDS: FLUTICASONE 50MCG/SPRAY NASAL 16GM EA NOSTRIL PRN (07:36)
[2020-05-20] MEDS: INSULIN ASPART (NovoLOG) 100 UNIT/ML VIAL SQ SCH ×2 (07:36→11:52)
[2020-05-20] MEDS: PANTOPRAZOLE 40 MG TABLET PO SCH (07:36)
[2020-05-20] MEDS: SEVELAMER 800 MG TAB PO SCH ×2 (07:37→11:51)
[2020-05-20] MEDS: INSULIN DETEMIR (LEVEMIR) 100 UNIT/ML SYR SQ SCH (07:37)
[2020-05-20] MEDS: FUROSEMIDE 80 MG TAB PO SCH ×2 (07:38→11:52)
[2020-05-20] MEDS: NYSTATIN 100,000UNIT/GM CREAM 30 GM TUBE TOPICAL SCH ×2 (07:39)
--- NOTE | 2020-05-20 09:38 | P.PN ---
Subjective Patient is seen in follow-up for end-stage renal disease. She is maintained on hemodialysis on Saturday schedule. Currently on antibiotics for MRSA bacteremia. Denies chest pain or shortness of breath. Recent cultures negative. No active complaints. Vital signs are stable. General: The patient appeared well nourished and normally developed. HEENT: Head exam is unremarkable. Neck is without jugular venous distension. LUNGS: Lungs are clear to auscultation and percussion. Breath sounds decreased. HEART: Rate and Rhythm are regular. ABDOMEN: Soft, non-distended. Obese. EXTREMITITES: 1+ edema. Chronic skin changes noted. Objective - Vital Signs Vital signs: Vital Signs Temp 98.6 F 05/20/20 06:52 Pulse 74 05/20/20 08:05 Resp 16 05/20/20 08:05 BP 97/65 05/20/20 06:52 Pulse Ox 96 05/20/20 06:52 Intake & Output 05/19/20 05/20/20 05/20/20 18:59 06:59 18:59 Intake Total 100 Output Total 2000 Balance -2000 100 Weight 80 kg Intake: Oral 100 Output: Stool 1 Hemodialysis 1999 Other: Voiding Method Bedside Commode Bedside Commode Bedside Commode Diaper Diaper Diaper Incontinent Incontinent Incontinent # Voids 1 3 # Bowel Movements 1 - Labs CBC & Chem 7: 05/13/20 06:15 05/13/20 06:15 Labs: Abnormal Lab Results - Last 24 Hours (Table) 05/19/20 05/19/20 05/19/20 Range/Units 11:32 16:45 20:28 POC Glucose (mg/dL) 118 H 185 H 163 H (75-99) mg/dL 05/20/20 Range/Units 06:43 POC Glucose (mg/dL) 152 H (75-99) mg/dL Microbiology - Last 24 Hours (Table) 05/14/20 06:40 Blood Culture - Final Blood No Growth after 144 hours 05/13/20 06:15 Blood Culture - Final Blood No Growth after 144 hours Assessment and Plan Plan: Assessment: 1. End-stage renal disease maintained on hemodialysis on Saturday schedule via a permacath. 2. MRSA bacteremia likely source being a permacath. Repeat cultures negative so far. 3. Insulin-dependent diabetes mellitus. 4. Chronic kidney disease mineral bone disease maintained on Renvela. Plan: Hemodialysis tomorrow. Maintain antibiotics. Monitor vancomycin levels. Target level less than 20. Case discussed with vascular surgery as well as infectious disease. Patient has limited options for new access per vascular surgery. She will definitely need the catheter removed if has recurrence of bacteremia.
[2020-05-20] MEDS: ACETAMINOPHEN TAB 325 MG TAB PO PRN (10:42)
[2020-05-20 11:45] LABS: Glucose,Whole Blood 180 mg/dL (75-99)
--- NOTE | 2020-05-20 13:17 | P.DS ---
Providers Date of admission: 05/12/20 12:37 Attending physician: Yunier Pino Consults: 05/11/20 11:57 Consult Physician Routine Consulting Provider: Julieta Luevano Consult Reason/Comments: ESRD Do you want consulting provider notified?: Yes 05/12/20 10:27 Consult Physician Routine Consulting Provider: Ashley Betancourt Consult Reason/Comments: bacteremia Do you want consulting provider notified?: Yes 05/14/20 13:59 Consult Physician Routine Consulting Provider: Onur Pearl Consult Reason/Comments: remove old dialysis port and replace with new one after dialysis tomorrow Do you want consulting provider notified?: Yes Primary care physician: [facility] Course: Final diagnosis MRSA bacteremia End-stage renal disease on hemodialysis chronic hypoxic respiratory failure Atrial fibrillation mellitus history of DVT on blood thinner Diabetes was type II Hypertension Hyperlipidemia CHF with chronic basilar dysfunction Severe pulmonary hypertension Diabetic nephropathy Discharge disposition patient be discharged in a stable condition with guarded prognosis patient be transferred to ECF total time taken 35 minutes History of present illness This 80-year-old woman with a past medical history multiple medical problems was admitted with MRSA bacteremia. Patient treated with intravenous vancomycin. Dr. Betancourt saw the patient. Permacath was noted. According to the vascular surgery we will continue the antibiotic and follow-up in the outpatient setting. The repeat blood cultures are negative so far. Patient is doing fine at this time. Patient be transferred to ECF for further evaluation and treatment. Vancomycin to be continued along the hemodialysis with the level checking. Follow-up with Dr. Dr. betancourt infection disease and as well as a surgery. On exam vitals are stable cardio S1-S2 normal abdomen soft nontender. No focal deficit Please see the medication reconciliation sheet. For list of Medications Patient Condition at Discharge: Fair Plan - Discharge Summary Discharge Rx Participant: No New Discharge Prescriptions: New QUEtiapine [SEROquel] 25 mg PO HS PRN #5 tab PRN Reason: Agitation Continue Ezetimibe [Zetia] 10 mg PO HS@2100 Metoprolol Tartrate [Lopressor] 50 mg PO SUMOWEFR@0700,2100 Ascorbic Acid [Vitamin C] 500 mg PO DAILY@1700 Cinnamon Bark [Cinnamon] 1,000 mg PO BID@0700,2100 [place]-3/Dha/Epa/Fish Oil [Fish Oil 500 mg Softgel] 1 cap PO DAILY@1700 Aspirin 81 mg PO DAILY@0700 Omeprazole 20 mg PO DAILY@0700 Midodrine HCl [ProAmatine] 10 mg PO TUTHSA Fluticasone Nasal [place] [Flonase Nasal [place]] 1 spr EA NOSTRIL DAILY PRN PRN Reason: Allergy Symptoms bisacodyL [Bisacodyl] 10 mg RECTAL Q48H PRN PRN Reason: Constipation Acetaminophen Tab [Tylenol] 325 mg PO TID@0800,1500,2100 MDD 3 GRAMS/24HRS Furosemide [Lasix] 80 mg PO SUMOWEFR@0700,1300 INSULIN ASPART (NovoLOG) [NovoLOG (formulary)] See Protocol SQ ACHS Bydureon Bcise 2mg/0.85ml 2 mg SQ WE Renvela Packet 0.8gm 3 pack PO TID@0700,1200,1700 Acetaminophen Tab [Tylenol] 325 mg PO Q6HR PRN MDD 3 GRAMS/24HRS PRN Reason: Pain Or Fever > 100.5 Apixaban [Eliquis] 2.5 mg PO BID@0700,1700 Calcium Carbonate 500 mg PO TID@0700,1500,2300 Cholecalciferol [Vitamin D3 (25 Mcg = 1000 Iu)] 4,000 unit PO DAILY@1700 diphenhydrAMINE [Benadryl] 25 mg PO Q8H PRN PRN Reason: Itching Furosemide [Lasix] 80 mg PO TUTHSA@1500 Insulin Glargine,Hum.rec.anlog [Basaglar Kwikpen U-100] 25 unit SQ DAILY@0700 Metoprolol Tartrate [Lopressor] 50 mg PO TUTHSA@2100 Nystatin 100,000Unit/gm Cream [Mycostatin Cream] 1 applic TOPICAL DAILY Ondansetron [Zofran] 4 mg PO Q4H PRN PRN Reason: Nausea Magnesium Hydroxide [Milk of Magnesia] 2,400 mg PO Q24H PRN PRN Reason: Constipation Hydrocortisone Cream [Hydrocortisone 2.5% Cream] 1 applic TOPICAL Q8H PRN PRN Reason: ITCHING/IRRITATION OF BUTTOCKS Leach Muscle Warming [place] 1 applic TOPICAL Q4H PRN PRN Reason: PAINFUL JOINTS Leach Muscle Warming [place] 1 applic TOPICAL TID Nystatin 100,000Unit/gm Cream [Mycostatin Cream] 1 applic TOPICAL TID traMADol HCL 50 mg PO Q24H PRN #3 tab PRN Reason: Pain Discontinued Amoxic-Pot Clav 500-125 mg [Augmentin 500-125 mg] 1 tab PO DAILY@0900,2100 traMADol HCL 50 mg PO BID@0700,1500,2100 Discharge Medication List Ezetimibe [Zetia] 10 mg PO HS@209912/22/17 [History] Metoprolol Tartrate [Lopressor] 50 mg PO SUMOWEFR@0700,209912/22/17 [History] Ascorbic Acid [Vitamin C] 500 mg PO DAILY@17008/19/18 [History] Aspirin 81 mg PO DAILY@0702/10/19 [History] Cinnamon Bark [Cinnamon] 1,000 mg PO BID@0700,209902/10/19 [History] [place]-3/Dha/Epa/Fish Oil [Fish Oil 500 mg Softgel] 1 cap PO DAILY@17002/10/19 [History] Acetaminophen Tab [Tylenol] 325 mg PO TID@0800,1500,2100 MDD 3 GRAMS/24HRS 09/23/19 [History] Fluticasone Nasal [place] [Flonase Nasal [place]] 1 spr EA NOSTRIL DAILY PRN 09/23/19 [History] Furosemide [Lasix] 80 mg PO SUMOWEFR@0700,1300 09/23/19 [History] INSULIN ASPART (NovoLOG) [NovoLOG (formulary)] See Protocol SQ ACHS 09/23/19 [History] Midodrine HCl [ProAmatine] 10 mg PO TUTHSA 09/23/19 [History] Omeprazole 20 mg PO DAILY@0700 09/23/19 [History] bisacodyL [Bisacodyl] 10 mg RECTAL Q48H PRN 09/23/19 [History] Acetaminophen Tab [Tylenol] 325 mg PO Q6HR PRN MDD 3 GRAMS/24HRS 05/10/20 [History] Apixaban [Eliquis] 2.5 mg PO BID@0700,1700 05/10/20 [History] Bydureon Bcise 2mg/0.85ml 2 mg SQ WE 05/10/20 [History] Calcium Carbonate 500 mg PO TID@0700,1500,2300 05/10/20 [History] Cholecalciferol [Vitamin D3 (25 Mcg = 1000 Iu)] 4,000 unit PO DAILY@1700 05/10/20 [History] Furosemide [Lasix] 80 mg PO TUTHSA@1500 05/10/20 [History] Hydrocortisone Cream [Hydrocortisone 2.5% Cream] 1 applic TOPICAL Q8H PRN 05/10/20 [History] Insulin Glargine,Hum.rec.anlog [Basaglar Kwikpen U-100] 25 unit SQ DAILY@0700 05/10/20 [History] Magnesium Hydroxide [Milk of Magnesia] 2,400 mg PO Q24H PRN 05/10/20 [History] Metoprolol Tartrate [Lopressor] 50 mg PO TUTHSA@2100 05/10/20 [History] Nystatin 100,000Unit/gm Cream [Mycostatin Cream] 1 applic TOPICAL DAILY 05/10/20 [History] Nystatin 100,000Unit/gm Cream [Mycostatin Cream] 1 applic TOPICAL TID 05/10/20 [History] Ondansetron [Zofran] 4 mg PO Q4H PRN 05/10/20 [History] Renvela Packet 0.8gm 3 pack PO TID@0700,1200,1700 05/10/20 [History] Leach Muscle [place] [place] 1 applic TOPICAL Q4H PRN 05/10/20 [History] Leach Muscle [place]arming [place] 1 applic TOPICAL TID 05/10/20 [History] diphenhydrAMINE [Benadryl] 25 mg PO Q8H PRN 05/10/20 [History] QUEtiapine [SEROquel] 25 mg PO HS PRN #5 tab 05/20/20 [Rx] traMADol HCL 50 mg PO Q24H PRN #3 tab 05/20/20 [Rx] Follow up Appointment(s)/Referral(s): Marc Avitia MD [Primary Care Provider] - 1-2 days Activity/Diet/Wound Care/Special Instructions: Head diet cardiac Activity as tolerated Follow-up with the primary physician as recommended Continue Vancomycin per pharmacy during dialysis Follow-up with Dr. Betancourt in 2 weeks Follow-up with the vascular surgeon in 2 weeks do blood culture if temperature spike
== END 2020-05-20 14:43 | disposition home or self-care (01) | DRG 314 ==
LOC: EC 18:14 → 4SSUR 21:13 → OBSVTOIN 05-12 12:37
PROVIDERS: ADMIT Internal Medicine; ATTEND Internal Medicine
PROC: 5A1D70Z Performance of Urinary Filtration, Intermittent, Less than 6 Hours Per Day (ICD-10-PCS; principal; 2020-05-12)
DX: T82.7XXA Infection and inflammatory reaction due to other cardiac and vascular devices, implants and grafts, initial encounter (principal); A41.01 Sepsis due to Methicillin susceptible Staphylococcus aureus; N18.6 End stage renal disease; A41.02 Sepsis due to Methicillin resistant Staphylococcus aureus; G92 Toxic encephalopathy; I50.33 Acute on chronic diastolic (congestive) heart failure; I13.2 Hypertensive heart and chronic kidney disease with heart failure and with stage 5 chronic kidney disease, or end stage renal disease; J96.11 Chronic respiratory failure with hypoxia; N39.0 Urinary tract infection, site not specified; E78.5 Hyperlipidemia, unspecified; I27.20 Pulmonary hypertension, unspecified; M19.90 Unspecified osteoarthritis, unspecified site; Z20.828 Contact with and (suspected) exposure to other viral communicable diseases; I48.0 Paroxysmal atrial fibrillation; J45.909 Unspecified asthma, uncomplicated; E66.01 Morbid (severe) obesity due to excess calories; E11.22 Type 2 diabetes mellitus with diabetic chronic kidney disease; D63.1 Anemia in chronic kidney disease; E83.89 Other disorders of mineral metabolism; K21.9 Gastro-esophageal reflux disease without esophagitis; Z79.01 Long term (current) use of anticoagulants; Z79.4 Long term (current) use of insulin; Z79.82 Long term (current) use of aspirin; Z79.899 Other long term (current) drug therapy; Z88.8 Allergy status to other drugs, medicaments and biological substances; Z86.718 Personal history of other venous thrombosis and embolism; Z95.0 Presence of cardiac pacemaker; Z99.2 Dependence on renal dialysis; Z90.49 Acquired absence of other specified parts of digestive tract; Z90.89 Acquired absence of other organs; Z86.73 Personal history of transient ischemic attack (TIA), and cerebral infarction without residual deficits; Z82.49 Family history of ischemic heart disease and other diseases of the circulatory system; Z84.89 Family history of other specified conditions; Z68.31 Body mass index [BMI] 31.0-31.9, adult
CPT/HCPCS: 51702; 80048; 80053; 80202; 80306; 82140; 83036; 83605; 84100; 85027; 86706; 87040; 87077; 87186; 87340; 90935; 96361; 96365; 96375; 99285

== ENCOUNTER 2020-11-22 12:27 | Inpatient (IN) | payer MEDICARE, OTHER ==
--- NOTE | 2020-11-22 12:48 | ED ---
General Adult HPI - General Stated complaint: dialysis Time Seen by Provider: 11/22/20 12:29 Source: patient, EMS, RN notes reviewed Mode of arrival: EMS Limitations: altered mental status, physical limitation - History of Present Illness Initial comments: Patient is a 75-year-old female presenting to the emergency Department with reported refusing dialysis. Patient is scheduled for dialysis today and refused from the nursing facility. Patient was transferred here secondary to [facility] does not have dialysis available. Patient also had some reported confusion. Patient is extremely poor historian and offers no significant history. Patient does deny any fever or pain or cough or dyspnea. Patient is agitated upon questioning. - Related Data Home Medications Medication Instructions Recorded Confirmed Ezetimibe [Zetia] 10 mg PO HS@2100 12/22/17 11/22/20 Metoprolol Tartrate [Lopressor] 50 mg PO SUMOWEFR@0712/22/17 11/22/20 Ascorbic Acid [Vitamin C] 500 mg PO DAILY@1700 08/19/18 11/22/20 Cinnamon Bark [Cinnamon] 1,000 mg PO BID 02/10/19 11/22/20 [place]-3/Dha/Epa/Fish Oil [Fish Oil 1 cap PO DAILY@1700 02/10/19 11/22/20 500 mg Softgel] Fluticasone Nasal [place] [Flonase 1 spr EA NOSTRIL DAILY PRN 09/23/19 11/22/20 Nasal [place]] INSULIN ASPART (NovoLOG) [NovoLOG See Protocol SQ ACHS 09/23/19 11/22/20 (formulary)] Midodrine HCl [ProAmatine] 10 mg PO TUTHSA@0500 09/23/19 11/22/20 Omeprazole 20 mg PO SUMOWEFR@0709/23/19 11/22/20 bisacodyL [Bisacodyl] 10 mg RECTAL Q72H PRN 09/23/19 11/22/20 Acetaminophen Tab [Tylenol] 650 mg PO Q4H PRN 05/10/20 11/22/20 Apixaban [Eliquis] 2.5 mg PO BID 05/10/20 11/22/20 Bydureon Bcise 2mg/0.85ml 2 mg SQ WE@209905/10/20 11/22/20 Furosemide [Lasix] 80 mg PO BID 05/10/20 11/22/20 Insulin Glargine,Hum.rec.anlog 25 unit SQ SUMOWEFR@0700 05/10/20 11/22/20 [Basaglcitlali Ovallepen U-100] Magnesium Hydroxide [Milk of 2,400 mg PO Q24H PRN 05/10/20 11/22/20 Magnesia] Metoprolol Tartrate [Lopressor] 50 mg PO HS 05/10/20 11/22/20 Ondansetron [Zofran] 4 mg PO Q4H PRN 05/10/20 11/22/20 Renvela Packet 0.8gm 2.4 gm PO TID@0700,1200,1700 05/10/20 11/22/20 diphenhydrAMINE [Benadryl] 25 mg PO Q8H PRN 05/10/20 11/22/20 Acetaminophen Tab [Tylenol Tab] 500 mg PO QID@05,,,11/22/20 11/22/20 Aspirin EC [Ecotrin Low Dose] 81 mg PO SUMOFR@0700 11/22/20 11/22/20 Aspirin EC [Ecotrin Low Dose] 81 mg PO TUTHSA@0500 11/22/20 11/22/20 Insulin Glargine,Hum.rec.anlog 25 unit SQ TUTHSA@0500 11/22/20 11/22/20 [Basaglar Vasquezpen U-100] LORazepam [Ativan] 1 mg PO HS@199911/22/20 11/22/20 LORazepam [Ativan] 1 mg PO TUTHSA@0500 11/22/20 11/22/20 Mag Hydrox/Aluminum Hyd/Simeth 10 ml PO Q4H PRN 11/22/20 11/22/20 [Mylanta Maximum Strength Liq] Omeprazole 20 mg PO TUTHSA@0500 11/22/20 11/22/20 Renvela Packet 0.8gm 0.8 gm PO HS@199911/22/20 11/22/20 Vit B Complx C/Folic Acid/Zinc 1 tab PO DAILY@1700 11/22/20 11/22/20 [Renaplex Tablet] traMADol HCL 50 mg PO QID@05,,,11/22/20 11/22/20 Allergies Allergy/AdvReac Type Severity Reaction Status Date / Time lisinopril Allergy Itching Verified 11/22/20 14:49 [id number]-[id number] Reductase Allergy Itching Verified 11/22/20 14:49 Inhibitor Review of Systems ROS Statement: Those systems with pertinent positive or pertinent negative responses have been documented in the HPI. ROS Other: All systems not noted in ROS Statement are negative. Constitutional: Denies: fever Eyes: Denies: eye pain ENT: Denies: ear pain Respiratory: Denies: cough Cardiovascular: Denies: chest pain Gastrointestinal: Denies: abdominal pain Genitourinary: Denies: dysuria Musculoskeletal: Denies: back pain Skin: Denies: rash Neurological: Reports: as per HPI, confusion. Denies: headache Past Medical History Past Medical History: Atrial Fibrillation, Asthma, Heart Failure, CVA/TIA, Diabetes Mellitus, Deep Vein Thrombosis (DVT), Eye Disorder, GERD/Reflux, Hyperlipidemia, Hypertension, Osteoarthritis (OA), Renal Disease Additional Past Medical History / Comment(s): TIA 2018; HEMODIALYSIS //SAT History of Any Multi-Drug Resistant Organisms: MRSA Date of last positivie culture/infection: 05/12/20 MDRO Source:: MRSA BLOOD Past Surgical History: Adenoidectomy, Appendectomy, Cholecystectomy, Pacemaker, Tonsillectomy Past Anesthesia/Blood Transfusion Reactions: No Reported Reaction Type of Cardiac Device: Permanent Pacemaker Device Placement Date:: 2016 Past Psychological History: No Psychological Hx Reported Smoking Status: Never smoker Past Alcohol Use History: None Reported Past Drug Use History: None Reported - Past Family History Father Family Medical History: Myocardial Infarction ([place]) Additional Family Medical History / Comment(s): RHEUMATIC FEVER General Exam Limitations: altered mental status, physical limitation General appearance: alert Head exam: Present: atraumatic Eye exam: Present: normal appearance, PERRL ENT exam: Present: normal oropharynx Neck exam: Present: normal inspection. Absent: tenderness, meningismus Respiratory exam: Present: normal lung sounds bilaterally Cardiovascular Exam: Present: regular rate, normal rhythm, systolic murmur GI/Abdominal exam: Present: soft. Absent: tenderness Extremities exam: Present: pedal edema (+1 bilateral). Absent: calf tenderness Neurological exam: Present: alert, altered Expanded Neurological exam: Present: protecting the airway, other (Exam very limited by patient noncooperation) Motor strength exam: RUE: 5, LUE: 5, RLE: 4, LLE: 4 Eye Response: (3) open to voice Motor Response: (6) obeys commands (Obeys most commands) Verbal Response: (4) confused conversation Psychiatric exam: Present: other (Flat affect and then he comes agitated upon questioning) Skin exam: Present: normal color Course Vital Signs 11/22/20 11/22/20 11/22/20 12:38 14:51 16:23 Temperature 100.1 F H Pulse Rate 75 72 75 Respiratory 18 18 20 Rate Blood Pressure 88/62 100/68 138/75 O2 Sat by Pulse 92 L 96 97 Oximetry EKG Findings - EKG Comments: EKG Findings:: Paced rhythm with rate of 70. QRS 184. QT 440. QTc 475. Left axis. Wide QRS complex. Nonspecific ST-T. Medical Decision Making - Medical Decision Making Patient reevaluated and resting comfortably in bed. Patient updated. Case discussed with active does po, who will admit covering Dr. Harman, who admits for Dr. Brooks. - Lab Data Result diagrams: 11/22/20 14:24 11/22/20 15:18 Lab Results 11/22/20 11/22/20 11/22/20 Range/Units 14:24 15:18 15:18 WBC 15.3 H (3.8-10.6) k/uL RBC 3.61 L (3.80-5.40) m/uL Hgb 12.3 (11.4-16.0) gm/dL Hct 37.7 (34.0-46.0) % MCV 104.4 H (80.0-100.0) fL MCH 34.1 (25.0-35.0) pg MCHC 32.7 (31.0-37.0) g/dL RDW 13.4 (11.5-15.5) % Plt Count 300 (150-450) k/uL MPV 7.1 Neutrophils % 88 % Lymphocytes % 4 % Monocytes % 5 % Eosinophils % 0 % Basophils % 0 % Neutrophils # 13.5 H (1.3-7.7) k/uL Lymphocytes # 0.7 L (1.0-4.8) k/uL Monocytes # 0.8 (0-1.0) k/uL Eosinophils # 0.1 (0-0.7) k/uL Basophils # 0.1 (0-0.2) k/uL Macrocytosis Slight PT 10.9 (9.0-12.0) sec INR 1.0 (<1.2) APTT 25.0 (22.0-30.0) sec Sodium (137-145) mmol/L Potassium (3.5-5.1) mmol/L Chloride (98-107) mmol/L Carbon Dioxide (22-30) mmol/L Anion Gap mmol/L BUN (7-17) mg/dL Creatinine (0.52-1.04) mg/dL Est GFR (CKD-EPI)AfAm (>60 ml/min/1.73 sqM) Est GFR (CKD-EPI)NonAf (>60 ml/min/1.73 sqM) Glucose (74-99) mg/dL Calcium (8.4-10.2) mg/dL Total Bilirubin (0.2-1.3) mg/dL AST (14-36) U/L ALT (4-34) U/L Alkaline Phosphatase (38-126) U/L Troponin I 0.048 H* (0.000-0.034) ng/mL Total Protein (6.3-8.2) g/dL Albumin (3.5-5.0) g/dL Influenza Type A (PCR) (Not Detectd) Influenza Type B (PCR) (Not Detectd) RSV (PCR) (Not Detectd) SARS-CoV-2 (PCR) (Not Detectd) 11/22/20 11/22/20 Range/Units 15:18 17:20 WBC (3.8-10.6) k/uL RBC (3.80-5.40) m/uL Hgb (11.4-16.0) gm/dL Hct (34.0-46.0) % MCV (80.0-100.0) fL MCH (25.0-35.0) pg MCHC (31.0-37.0) g/dL RDW (11.5-15.5) % Plt Count (150-450) k/uL MPV Neutrophils % % Lymphocytes % % Monocytes % % Eosinophils % % Basophils % % Neutrophils # (1.3-7.7) k/uL Lymphocytes # (1.0-4.8) k/uL Monocytes # (0-1.0) k/uL Eosinophils # (0-0.7) k/uL Basophils # (0-0.2) k/uL Macrocytosis PT (9.0-12.0) sec INR (<1.2) APTT (22.0-30.0) sec Sodium 134 L (137-145) mmol/L Potassium 5.7 H (3.5-5.1) mmol/L Chloride 100 (98-107) mmol/L Carbon Dioxide 17 L (22-30) mmol/L Anion Gap 17 mmol/L BUN 57 H (7-17) mg/dL Creatinine 7.58 H* (0.52-1.04) mg/dL Est GFR (CKD-EPI)AfAm 6 (>60 ml/min/1.73 sqM) Est GFR (CKD-EPI)NonAf 5 (>60 ml/min/1.73 sqM) Glucose 150 H (74-99) mg/dL Calcium 9.9 (8.4-10.2) mg/dL Total Bilirubin 0.8 (0.2-1.3) mg/dL AST 17 (14-36) U/L ALT 11 (4-34) U/L Alkaline Phosphatase 128 H (38-126) U/L Troponin I (0.000-0.034) ng/mL Total Protein 7.0 (6.3-8.2) g/dL Albumin 4.0 (3.5-5.0) g/dL Influenza Type A (PCR) Not Detected (Not Detectd) Influenza Type B (PCR) Not Detected (Not Detectd) RSV (PCR) Not Detected (Not Detectd) SARS-CoV-2 (PCR) Not Detected (Not Detectd) - Radiology Data Radiology results: report reviewed (Computed tomography scan of the brain shows atrophy and chronic small vessel ischemic changes without acute abnormality.), image reviewed (Chest x-ray shows patchy density right lower lobe, and perihilar regions) Disposition Clinical Impression: AMS (altered mental status), Pneumonia, Chronic renal insufficiency Disposition: ADMITTED IP TO THIS HOSP Is patient prescribed a controlled substance at d/c from ED?: No Referrals: Jp Brooks MD [Primary Care Provider] - 1-2 days Decision Time: 18:38
[2020-11-22] MEDS ORDERED: SODIUM CHLORIDE 0.9% 500 ML 500 ML IV STA (13:32)
[2020-11-22 14:44] LABS: Basophils # (A) 0.1 k/uL (0-0.2); Basophils % (A) 0 %; Eosinophils # (A) 0.1 k/uL (0-0.7); Eosinophils % (A) 0 %; HCT 37.7 % (34.0-46.0); HGB 12.3 gm/dL (11.4-16.0); Lymphocytes # (A) 0.7 k/uL (1.0-4.8); Lymphocytes % (A) 4 %; MCH 34.1 pg (25.0-35.0); MCHC 32.7 g/dL (31.0-37.0); MCV 104.4 fL (80.0-100.0); Macrocytosis Slight; Mean Platelet Volume 7.1; Monocytes # (A) 0.8 k/uL (0-1.0); Monocytes % (A) 5 %; Neutrophils # (A) 13.5 k/uL (1.3-7.7); Neutrophils % (A) 88 %; Platelet Count 300 k/uL (150-450); RBC 3.61 m/uL (3.80-5.40); RDW 13.4 % (11.5-15.5); WBC 15.3 k/uL (3.8-10.6)
--- NOTE | 2020-11-22 14:49 | CT ---
EXAMINATION TYPE: CT brain wo con DATE OF EXAM: 11/22/2020 COMPARISON: 05/10/2020 HISTORY: Mental status changes. CT DLP: 1247.[address] of the brain was performed. The ventricles, basal cisterns and sulci overlying the cerebral convexities demonstrate moderate enla rgement. There is no evidence for intracranial hemorrhage or sulcal effacement. There is decreased attenuation about the periventricular white matter and deep white matter of both c erebral hemispheres, compatible with chronic small vessel ischemia. Differential diagnosis does inclu de demyelination. No mass effects are seen.No midline shift. Osseous calvarium is intact. If symptoms persist consider MRI. IMPRESSION: 1. Age related atrophic and chronic small vessel ischemic change without acute intracranial process s een at this time.
[2020-11-22 15:33] LABS: Prothrombin Time 10.9 sec (9.0-12.0)
--- NOTE | 2020-11-22 15:43 | XR ---
EXAMINATION TYPE: XR chest 2V DATE OF EXAM: 11/22/2020 COMPARISON: 02/16/2019 HISTORY: Shortness of breath TECHNIQUE: Frontal and lateral views of the chest are obtained. FINDINGS: Scattered senescent parenchymal changes noted. Hyperinflation compatible with COPD. Patchy density right lower lobe, perihilar regions may reflect underlying infiltrate. Correlate for u nderlying pneumonia. Heart size is stable. Large bore central venous line. Pacer device is unchanged. Mediastinal structures are stable and grossly unremarkable. No evidence for hilar prominence. Degenerative changes dorsal spine. IMPRESSION: 1. Patchy density right lower lobe, perihilar regions may reflect underlying infiltrate. Correlate fo r underlying pneumonia.
[2020-11-22 16:50] LABS: Calcium 9.9 mg/dL (8.4-10.2); Potassium 5.7 mmol/L (3.5-5.1); Total Bilirubin 0.8 mg/dL (0.2-1.3)
[2020-11-22] MEDS ORDERED: SODIUM POLYSTYRENE SULFONATE 15 GM/60 ML BOTTLE PO STA (17:58)
[2020-11-22] MEDS ORDERED: MAGNESIUM HYDROXIDE 2,400 MG/10 ML CUP PO PRN (18:05)
[2020-11-22] MEDS ORDERED: ACETAMINOPHEN TAB 325 MG TAB PO PRN (18:05)
[2020-11-22] MEDS ORDERED: MAG HYDROX/AL HYDROX/SIMETH 30 ML CUP PO PRN (18:05)
[2020-11-22] MEDS ORDERED: ONDANSETRON 4 MG TAB PO PRN (18:05)
[2020-11-22] MEDS ORDERED: FLUTICASONE 50MCG/SPRAY NASAL 16GM EA NOSTRIL PRN (18:05)
--- NOTE | 2020-11-22 18:11 | P.HPIM ---
History of Present Illness 75-year-old female came to emergency department after she refused hemodialysis. Patient is found to be hyperkalemic and patient is a group home resident. was apparently confused as well although I'm unable to get into much of the history from the patient as patient intentionally doesn't want to provide much of the history. Patient although said she didn't get covert vaccine. Patient had a chest x-ray which is showing some infiltrate which is diffuse and predominantly in the right lower lobes and hilar area. Patient did have low- grade fevers we are waiting on COVID-19 PCR testing. Patient does have lymphopenia I do not have an LDH available at this time. Review of Systems Unable to obtain as patient doesn't want to provide me much of his history. Past Medical History Past Medical History: Atrial Fibrillation, Asthma, Heart Failure, CVA/TIA, Diabetes Mellitus, Deep Vein Thrombosis (DVT), Eye Disorder, GERD/Reflux, Hyperlipidemia, Hypertension, Osteoarthritis (OA), Renal Disease Additional Past Medical History / Comment(s): TIA 2018; HEMODIALYSIS //SAT History of Any Multi-Drug Resistant Organisms: MRSA Date of last positivie culture/infection: 05/12/20 MDRO Source:: MRSA BLOOD Past Surgical History: Adenoidectomy, Appendectomy, Cholecystectomy, Pacemaker, Tonsillectomy Past Anesthesia/Blood Transfusion Reactions: No Reported Reaction Type of Cardiac Device: Permanent Pacemaker Device Placement Date:: 2016 Past Psychological History: No Psychological Hx Reported Smoking Status: Never smoker Past Alcohol Use History: None Reported Past Drug Use History: None Reported - Past Family History Father Family Medical History: Myocardial Infarction (CT) Additional Family Medical History / Comment(s): RHEUMATIC FEVER Medications and Allergies Home Medications Medication Instructions Recorded Confirmed Type Ezetimibe [Zetia] 10 mg PO HS@2100 12/22/17 11/22/20 History Metoprolol Tartrate [Lopressor] 50 mg PO SUMOWEFR@0700 12/22/17 11/22/20 History Ascorbic Acid [Vitamin C] 500 mg PO DAILY@1700 08/19/18 11/22/20 History Cinnamon Bark [Cinnamon] 1,000 mg PO BID 02/10/19 11/22/20 History [place]-3/Dha/Epa/Fish Oil [Fish Oil 1 cap PO DAILY@1700 02/10/19 11/22/20 History 500 mg Softgel] Fluticasone Nasal [place] [Flonase 1 spr EA NOSTRIL DAILY PRN 09/23/19 11/22/20 History Nasal [place]] INSULIN ASPART (NovoLOG) [NovoLOG See Protocol SQ ACHS 09/23/19 11/22/20 History (formulary)] Midodrine HCl [ProAmatine] 10 mg PO TUTHSA@0500 09/23/19 11/22/20 History Omeprazole 20 mg PO SUMOWEFR@0700 09/23/19 11/22/20 History bisacodyL [Bisacodyl] 10 mg RECTAL Q72H PRN 09/23/19 11/22/20 History Acetaminophen Tab [Tylenol] 650 mg PO Q4H PRN 05/10/20 11/22/20 History Apixaban [Eliquis] 2.5 mg PO BID 05/10/20 11/22/20 History Bydureon Bcise 2mg/0.85ml 2 mg SQ WE@2100 05/10/20 11/22/20 History Furosemide [Lasix] 80 mg PO BID 05/10/20 11/22/20 History Insulin Glargine,Hum.rec.anlog 25 unit SQ SUMOWEFR@0700 05/10/20 11/22/20 History [Basaglar Kwikpen U-100] Magnesium Hydroxide [Milk of 2,400 mg PO Q24H PRN 05/10/20 11/22/20 History Magnesia] Metoprolol Tartrate [Lopressor] 50 mg PO HS 05/10/20 11/22/20 History Ondansetron [Zofran] 4 mg PO Q4H PRN 05/10/20 11/22/20 History Renvela Packet 0.8gm 2.4 gm PO TID@0700,1200,1700 05/10/20 11/22/20 History diphenhydrAMINE [Benadryl] 25 mg PO Q8H PRN 05/10/20 11/22/20 History Acetaminophen Tab [Tylenol Tab] 500 mg PO QID@05,11,17,21 11/22/20 11/22/20 History Aspirin EC [Ecotrin Low Dose] 81 mg PO SUMOFR@0700 11/22/20 11/22/20 History Aspirin EC [Ecotrin Low Dose] 81 mg PO TUTHSA@0500 11/22/20 11/22/20 History Insulin Glargine,Hum.rec.anlog 25 unit SQ TUTHSA@0500 11/22/20 11/22/20 History [Basaglar Vasquezpen U-100] LORazepam [Ativan] 1 mg PO HS@199911/22/20 11/22/20 History LORazepam [Ativan] 1 mg PO TUTHSA@0500 11/22/20 11/22/20 History Mag Hydrox/Aluminum Hyd/Simeth 10 ml PO Q4H PRN 11/22/20 11/22/20 History [Mylanta Maximum Strength Liq] Omeprazole 20 mg PO TUTHSA@0500 11/22/20 11/22/20 History Renvela Packet 0.8gm 0.8 gm PO HS@199911/22/20 11/22/20 History Vit B Complx C/Folic Acid/Zinc 1 tab PO DAILY@1700 11/22/20 11/22/20 History [Renaplex Tablet] traMADol HCL 50 mg PO QID@05,11,17,21 11/22/20 11/22/20 History Allergies Allergy/AdvReac Type Severity Reaction Status Date / Time lisinopril Allergy Itching Verified 11/22/20 14:49 Lzwnnsx-Vdw-Rus Reductase Allergy Itching Verified 11/22/20 14:49 Inhibitor Physical Exam Vitals: Vital Signs Temp Pulse Resp BP Pulse Ox 11/22/20 16:23 75 20 138/75 97 11/22/20 14:51 72 18 100/68 96 11/22/20 12:38 100.1 F H 75 18 88/62 92 L Intake and Output 11/22/20 11/22/20 11/22/20 06:59 14:59 22:59 Other: Weight 115.666 kg PHYSICAL EXAMINATION: GENERAL: The patient is alert and oriented x3, not in any acute distress. Obese HEENT: Pupils are round and equally reacting to light. EOMI. No scleral icterus. No conjunctival pallor. Normocephalic, atraumatic. No pharyngeal erythema. No thyromegaly. CARDIOVASCULAR: S1 and S2 present. No murmurs, rubs, or gallops. PULMONARY: Chest is clear to auscultation, no wheezing or crackles. ABDOMEN: Soft, nontender, nondistended, normoactive bowel sounds. No palpable organomegaly. MUSCULOSKELETAL: No joint swelling or deformity. EXTREMITIES: No cyanosis, clubbing, or pedal edema. NEUROLOGICAL: Gross neurological examination did not reveal any focal deficits. SKIN: No rashes. Results CBC & Chem 7: 11/22/20 14:24 11/22/20 15:18 Labs: Abnormal Lab Results - Last 24 Hours (Table) 11/22/20 11/22/20 11/22/20 Range/Units 14:24 15:18 15:18 WBC 15.3 H (3.8-10.6) k/uL RBC 3.61 L (3.80-5.40) m/uL MCV 104.4 H (80.0-100.0) fL Neutrophils # 13.5 H (1.3-7.7) k/uL Lymphocytes # 0.7 L (1.0-4.8) k/uL Sodium 134 L (137-145) mmol/L Potassium 5.7 H (3.5-5.1) mmol/L Carbon Dioxide 17 L (22-30) mmol/L BUN 57 H (7-17) mg/dL Creatinine 7.58 H* (0.52-1.04) mg/dL Glucose 150 H (74-99) mg/dL Alkaline Phosphatase 128 H (38-126) U/L Troponin I 0.048 H* (0.000-0.034) ng/mL Assessment and Plan Plan: -Systemic inflammatory response syndrome/ sepsis with elevated white blood cell count and low-grade fever. COVID-19 testing is pending if Covid 19 is positive patient will be treated for that we will hold off on antibiotics until we get the COVID-19 results. If Covid 19 is negative patient need to be treated for possible pneumonia. Patient doesn't make much urine. -Altered mental status: Seconded toxic encephalopathy because of above-mentioned reasons -Missing hemodialysis with mild volume overload and hyperkalemia patient is estrogen disease nephrology was consulted -Atrial fibrillation patient is presently rate controlled continue with the anticoagulation patient is probably paroxysmal A. fib -DVT in the past -Type 2 diabetes mellitus patient will be resumed on home regimen along with sliding scale -Hyperlipidemia -Hypertension
[2020-11-22] MEDS ORDERED: AZITHROMYCIN 500 MG in SODIUM CHLORIDE 0.9% 250 ML IVPB STA (18:39)
[2020-11-22] MEDS ORDERED: PNEUMONIA PROTOCOL UTILIZED 1 EACH MISC PO PRN (18:39)
[2020-11-22 18:41] LABS: Phosphorus 4.9 mg/dL (2.5-4.5)
[2020-11-22] MEDS: SODIUM CHLORIDE 0.9% 1,000 ML IV SCH (19:52)
[2020-11-22] MEDS: ACETAMINOPHEN TAB 500 MG TAB PO SCH (20:39)
[2020-11-22] MEDS: APIXABAN 2.5 MG TABLET PO SCH (20:40)
[2020-11-22] MEDS: METOPROLOL TARTRATE 50 MG TAB PO SCH (20:40)
[2020-11-22] MEDS: traMADol 50 MG TAB PO SCH (20:40)
[2020-11-22] MEDS: SEVELAMER 800 MG TAB PO SCH (20:53)
[2020-11-22] MEDS: EZETIMIBE 10 MG TAB PO SCH (20:53)
[2020-11-22 20:58] LABS: Glucose,Whole Blood 151 mg/dL (75-99)
[2020-11-22] MEDS: INSULIN ASPART (NovoLOG) 100 UNIT/ML VIAL SQ SCH (20:58)
[2020-11-23] MEDS: traMADol 50 MG TAB PO SCH ×4 (05:33→20:42)
[2020-11-23] MEDS: ACETAMINOPHEN TAB 500 MG TAB PO SCH ×4 (05:33→20:40)
[2020-11-23] MEDS ORDERED: PANTOPRAZOLE 40 MG TABLET PO SCH (07:00)
[2020-11-23] MEDS ORDERED: INSULIN DETEMIR (LEVEMIR) 100 UNIT/ML SYR SQ SCH (07:00)
[2020-11-23 07:25] LABS: Glucose,Whole Blood 137 mg/dL (75-99)
--- NOTE | 2020-11-23 07:31 | XR ---
EXAMINATION TYPE: XR chest 1V portable DATE OF EXAM: 11/23/2020 HISTORY: Shortness of breath. COMPARISON: 11/22/2020 TECHNIQUE: Single view of the chest is submitted. FINDINGS: Demonstrated are scattered senescent parenchymal change. Scattered patchy airspace infiltrates persist without significant change. The heart is stable. Hilar and mediastinal structures are within normal limits. Degenerative changes are seen of the dorsal spine. IMPRESSION: 1. Scattered patchy airspace infiltrates persist without significant change.
[2020-11-23] MEDS: INSULIN ASPART (NovoLOG) 100 UNIT/ML VIAL SQ SCH ×4 (07:47→20:35)
[2020-11-23] MEDS: METOPROLOL TARTRATE 50 MG TAB PO SCH ×2 (07:48→20:40)
[2020-11-23] MEDS: APIXABAN 2.5 MG TABLET PO SCH ×2 (07:48→20:40)
[2020-11-23] MEDS: FUROSEMIDE 80 MG TAB PO SCH ×2 (08:12→12:21)
[2020-11-23] MEDS: SEVELAMER 800 MG TAB PO SCH ×4 (08:13→20:39)
[2020-11-23] MEDS: AZITHROMYCIN 500 MG TAB PO SCH (08:13)
[2020-11-23 08:16] LABS: Appearance,Urine Cloudy (Clear); Bilirubin,Urine Negative (Negative); Blood,Urine Moderate (Negative); Color,Urine Yellow; Glucose,Urine (UA) Negative (Negative); Ketones,Urine Negative (Negative); Leukocyte Esterase,Urine Large (Negative); Nitrite,Urine Negative (Negative); Protein,Urine 2+ (Negative); RBC,Urine 40 /hpf (0-5); Specific Gravity,Urine 1.015 (1.001-1.035); Squamous Epithelial Cell,Urine <1 /hpf (0-4); Urobilinogen,Urine <2.0 mg/dL (<2.0); WBC,Urine >182 /hpf (0-5)
--- NOTE | 2020-11-23 11:02 | P.PN ---
Subjective 75-year-old female came to emergency department after she refused hemodialysis. Patient is found to be hyperkalemic and patient is a intermediate resident. was apparently confused as well although I'm unable to get into much of the history from the patient as patient intentionally doesn't want to provide much of the history. Patient although said she didn't get covert vaccine. Patient had a chest x-ray which is showing some infiltrate which is diffuse and predominantly in the right lower lobes and hilar area. Patient did have low- grade fevers we are waiting on COVID-19 PCR testing. Patient does have lymphopenia I do not have an LDH available at this time. 11/23/2020 Patient is undergoing hemodialysis today. Patient is negative for COVID-19. Patient was started on antibiotics for possible right lower lobe pneumonia and patient is presently on Rocephin and azithromycin. A since urine is abnormal as well as I cannot get much of the history from the patient and cannot rule out urinary tract infection. We'll await urine cultures and blood cultures. Review of systems: Unable to obtain due to her clinical condition All inpatient medications were reviewed and appropriate changes in these medications as dictated in the interval history and assessment and plan. Objective - Vital Signs Vital signs: Vital Signs Temp 99.2 F 11/23/20 08:00 Pulse 78 11/23/20 08:00 Resp 18 11/23/20 08:00 BP 127/43 11/23/20 08:00 Pulse Ox 96 11/23/20 08:00 Intake & Output 11/22/20 11/23/20 11/23/20 18:59 06:59 18:59 Output Total 700 Balance -700 Weight 115.666 kg 115.666 kg Output: Urine 700 Uretheral (Hsu) 100 Other: Voiding Method Indwelling Catheter - Exam PHYSICAL EXAMINATION: GENERAL: The patient is alert and in unable to assess orientation, not in any acute distress. Obese HEENT: Pupils are round and equally reacting to light. EOMI. No scleral icterus. No conjunctival pallor. Normocephalic, atraumatic. No pharyngeal erythema. No thyromegaly. CARDIOVASCULAR: S1 and S2 present. No murmurs, rubs, or gallops. PULMONARY: Chest is clear to auscultation, no wheezing or crackles. ABDOMEN: Soft, nontender, nondistended, normoactive bowel sounds. No palpable organomegaly. MUSCULOSKELETAL: No joint swelling or deformity. EXTREMITIES: No cyanosis, clubbing, or pedal edema. NEUROLOGICAL: Gross neurological examination did not reveal any focal deficits. SKIN: No rashes. - Labs CBC & Chem 7: 11/22/20 14:24 11/22/20 15:18 Labs: Abnormal Lab Results - Last 24 Hours (Table) 11/22/20 11/22/20 11/22/20 Range/Units 14:24 15:18 15:18 WBC 15.3 H (3.8-10.6) k/uL RBC 3.61 L (3.80-5.40) m/uL MCV 104.4 H (80.0-100.0) fL Neutrophils # 13.5 H (1.3-7.7) k/uL Lymphocytes # 0.7 L (1.0-4.8) k/uL D-Dimer (<0.60) mg/L FEU Sodium 134 L (137-145) mmol/L Potassium 5.7 H (3.5-5.1) mmol/L Carbon Dioxide 17 L (22-30) mmol/L BUN 57 H (7-17) mg/dL Creatinine 7.58 H* (0.52-1.04) mg/dL Glucose 150 H (74-99) mg/dL POC Glucose (mg/dL) (75-99) mg/dL Phosphorus (2.5-4.5) mg/dL Alkaline Phosphatase 128 H (38-126) U/L Troponin I 0.048 H* (0.000-0.034) ng/mL Urine Appearance (Clear) Urine Protein (Negative) Urine Blood (Negative) Ur Leukocyte Esterase (Negative) Urine RBC (0-5) /hpf Urine WBC (0-5) /hpf Urine WBC Clumps (None) /hpf 11/22/20 11/22/20 11/22/20 Range/Units 15:18 15:18 20:56 WBC (3.8-10.6) k/uL RBC (3.80-5.40) m/uL MCV (80.0-100.0) fL Neutrophils # (1.3-7.7) k/uL Lymphocytes # (1.0-4.8) k/uL D-Dimer 1.47 H (<0.60) mg/L FEU Sodium (137-145) mmol/L Potassium (3.5-5.1) mmol/L Carbon Dioxide (22-30) mmol/L BUN (7-17) mg/dL Creatinine (0.52-1.04) mg/dL Glucose (74-99) mg/dL POC Glucose (mg/dL) 151 H (75-99) mg/dL Phosphorus 4.9 H (2.5-4.5) mg/dL Alkaline Phosphatase (38-126) U/L Troponin I (0.000-0.034) ng/mL Urine Appearance (Clear) Urine Protein (Negative) Urine Blood (Negative) Ur Leukocyte Esterase (Negative) Urine RBC (0-5) /hpf Urine WBC (0-5) /hpf Urine WBC Clumps (None) /hpf 11/23/20 11/23/20 Range/Units 06:30 07:24 WBC (3.8-10.6) k/uL RBC (3.80-5.40) m/uL MCV (80.0-100.0) fL Neutrophils # (1.3-7.7) k/uL Lymphocytes # (1.0-4.8) k/uL D-Dimer (<0.60) mg/L FEU Sodium (137-145) mmol/L Potassium (3.5-5.1) mmol/L Carbon Dioxide (22-30) mmol/L BUN (7-17) mg/dL Creatinine (0.52-1.04) mg/dL Glucose (74-99) mg/dL POC Glucose (mg/dL) 137 H (75-99) mg/dL Phosphorus (2.5-4.5) mg/dL Alkaline Phosphatase (38-126) U/L Troponin I (0.000-0.034) ng/mL Urine Appearance Cloudy H (Clear) Urine Protein 2+ H (Negative) Urine Blood Moderate H (Negative) Ur Leukocyte Esterase Large H (Negative) Urine RBC 40 H (0-5) /hpf Urine WBC >182 H (0-5) /hpf Urine WBC Clumps Moderate H (None) /hpf Assessment and Plan Plan: -sepsis : Secondary to either pneumonia or urinary tract infection continue with the Rocephin and azithromycin for now -Altered mental status: Seconded toxic encephalopathy because of above-mentioned reasons -Missing hemodialysis with mild volume overload and hyperkalemia: Nephrology valid the patient patient is undergoing hemodialysis today -Atrial fibrillation patient is presently rate controlled continue with the anticoagulation patient is probably paroxysmal A. fib -DVT in the past -Type 2 diabetes mellitus patient will be resumed on home regimen along with sliding scale -Hyperlipidemia -Hypertension
[2020-11-23 11:52] LABS: Glucose,Whole Blood 106 mg/dL (75-99)
[2020-11-23 12:11] LABS: African American GFR (CKD) 6.1 (60.0-200.0); Anion Gap 12.8 mmol/L (4.00-12.00); BUN/Creat Ratio 8.59 Ratio (12.00-20.00); Calcium 9.5 mg/dL (8.7-10.3); Carbon Dioxide 22.2 mmol/L (21.6-31.8); Non-African American GFR(CKD) 5.2 (60.0-200.0); Potassium 6.5 mmol/L (3.5-5.5)
--- NOTE | 2020-11-23 12:34 | P.NPCON ---
History of Present Illness - Reason for Consult end stage renal disease - History of Present Illness Reason for consultation: End-stage renal disease History of present is: Patient is a 75-year-old female seen in renal consultation for end-stage renal disease. She is maintained on hemodialysis on Saturday schedule via right chest permacath. Patient was transferred to the hospital from extended care facility as she refused to go to hemodialysis. Patient was also more confused. She is currently tolerating dialysis well. She is not sure as to why she came to the hospital. No chest pain or shortness of breath. Vital signs are stable. She tested negative for coronavirus. No vomiting or diarrhea. Hemoglobin normal. UA suggestive of UTI. She is receiving antibiotics. Vital signs are stable. General: The patient appeared well nourished and normally developed. HEENT: Head exam is unremarkable. Neck is without jugular venous distension. LUNGS: Breath sounds decreased. HEART: Rate and Rhythm are regular. ABDOMEN: Soft, obese. EXTREMITITES: Trace edema. Past Medical History Past Medical History: Atrial Fibrillation, Asthma, Heart Failure, CVA/TIA, Diabetes Mellitus, Deep Vein Thrombosis (DVT), GERD/Reflux, Hyperlipidemia, Hype rtension, Osteoarthritis (OA), Renal Disease Additional Past Medical History / Comment(s): TIA 2018; HEMODIALYSIS //SATURDAY 06-given ativan prior to dialysis History of Any Multi-Drug Resistant Organisms: MRSA Date of last positivie culture/infection: 05/12/20 MDRO Source:: MRSA URINE Past Surgical History: Adenoidectomy, Appendectomy, Cholecystectomy, Pacemaker, Tonsillectomy Past Anesthesia/Blood Transfusion Reactions: No Reported Reaction Type of Cardiac Device: Permanent Pacemaker Device Placement Date:: 2016 Past Psychological History: Anxiety, Depression Additional Psychological History / Comment(s): mood disorder; possible child- talks about a son named Carloz Smoking Status: Never smoker Past Alcohol Use History: None Reported Past Drug Use History: None Reported - Past Family History Father Family Medical History: Myocardial Infarction (ME) Additional Family Medical History / Comment(s): RHEUMATIC FEVER Medications and Allergies Home Medications Medication Instructions Recorded Confirmed Type Ezetimibe [Zetia] 10 mg PO HS@2100 12/22/17 11/22/20 History Metoprolol Tartrate [Lopressor] 50 mg PO SUMOWEFR@0700 12/22/17 11/22/20 History Ascorbic Acid [Vitamin C] 500 mg PO DAILY@1700 08/19/18 11/22/20 History Cinnamon Bark [Cinnamon] 1,000 mg PO BID 02/10/19 11/22/20 History [place]-3/Dha/Epa/Fish Oil [Fish Oil 1 cap PO DAILY@1700 02/10/19 11/22/20 History 500 mg Softgel] Fluticasone Nasal [place] [Flonase 1 spr EA NOSTRIL DAILY PRN 09/23/19 11/22/20 History Nasal [place]] INSULIN ASPART (NovoLOG) [NovoLOG See Protocol SQ ACHS 09/23/19 11/22/20 History (formulary)] Midodrine HCl [ProAmatine] 10 mg PO TUTHSA@0500 09/23/19 11/22/20 History Omeprazole 20 mg PO SUMOWEFR@0700 09/23/19 11/22/20 History bisacodyL [Bisacodyl] 10 mg RECTAL Q72H PRN 09/23/19 11/22/20 History Acetaminophen Tab [Tylenol] 650 mg PO Q4H PRN 05/10/20 11/22/20 History Apixaban [Eliquis] 2.5 mg PO BID 05/10/20 11/22/20 History Bydureon Bcise 2mg/0.85ml 2 mg SQ WE@2100 05/10/20 11/22/20 History Furosemide [Lasix] 80 mg PO BID 05/10/20 11/22/20 History Insulin Glargine,Hum.rec.anlog 25 unit SQ SUMOWEFR@0700 05/10/20 11/22/20 History [Basaglar Kwikpen U-100] Magnesium Hydroxide [Milk of 2,400 mg PO Q24H PRN 05/10/20 11/22/20 History Magnesia] Metoprolol Tartrate [Lopressor] 50 mg PO HS 05/10/20 11/22/20 History Ondansetron [Zofran] 4 mg PO Q4H PRN 05/10/20 11/22/20 History Renvela Packet 0.8gm 2.4 gm PO TID@0700,1200,1700 05/10/20 11/22/20 History diphenhydrAMINE [Benadryl] 25 mg PO Q8H PRN 05/10/20 11/22/20 History Acetaminophen Tab [Tylenol Tab] 500 mg PO QID@,,,11/22/20 11/22/20 History Aspirin EC [Ecotrin Low Dose] 81 mg PO SUMOFR@0700 11/22/20 11/22/20 History Aspirin EC [Ecotrin Low Dose] 81 mg PO TUTHSA@0500 11/22/20 11/22/20 History Insulin Glargine,Hum.rec.anlog 25 unit SQ TUTHSA@0500 11/22/20 11/22/20 History [Basaglar Kwikpen U-100] LORazepam [Ativan] 1 mg PO HS@199911/22/20 11/22/20 History LORazepam [Ativan] 1 mg PO TUTHSA@0500 11/22/20 11/22/20 History Mag Hydrox/Aluminum Hyd/Simeth 10 ml PO Q4H PRN 11/22/20 11/22/20 History [Mylanta Maximum Strength Liq] Omeprazole 20 mg PO TUTHSA@0500 11/22/20 11/22/20 History Renvela Packet 0.8gm 0.8 gm PO HS@199911/22/20 11/22/20 History Vit B Complx C/Folic Acid/Zinc 1 tab PO DAILY@1700 11/22/20 11/22/20 History [Renaplex Tablet] traMADol HCL 50 mg PO QID@,,,11/22/20 11/22/20 History Allergies Allergy/AdvReac Type Severity Reaction Status Date / Time lisinopril Allergy Itching Verified 11/22/20 14:49 Ziyouln-Utw-Csw Reductase Allergy Itching Verified 11/22/20 14:49 Inhibitor Physical Exam Vitals: Vital Signs Temp Pulse Pulse Resp BP BP Pulse Ox 11/23/20 08:00 99.2 F 78 18 127/43 96 11/23/20 05:00 99.1 F 11/23/20 00:55 99.9 F H 73 19 141/80 100 11/22/20 22:00 73 18 11/22/20 21:51 98.5 F 71 114/42 93 L 11/22/20 19:54 99.8 F H 75 20 110/80 95 11/22/20 19:00 70 23 119/93 97 11/22/20 18:00 74 16 125/51 94 L 11/22/20 17:00 70 22 106/50 95 11/22/20 16:23 75 20 138/75 97 11/22/20 16:00 70 10 L 138/75 96 11/22/20 15:00 72 17 100/68 95 11/22/20 14:51 72 18 100/68 96 11/22/20 12:38 100.1 F H 75 18 88/62 92 L Intake and Output 11/22/20 11/23/20 11/23/20 22:59 06:59 14:59 Output Total 100 600 Balance -100 -600 Output: Urine 100 600 Uretheral (Hsu) 100 Other: Voiding Method Indwelling Catheter Indwelling Catheter Weight 115.666 kg Results - Lab Results Most recent lab results Calcium 9.5 mg/dL (8.7-10.3) 11/23/20 06:32 Phosphorus 4.9 mg/dL (2.5-4.5) H 11/22/20 15:18 11/22/20 14:24 11/23/20 06:32 Assessment and Plan Plan: Assessment: 1. End-stage renal disease maintained on hemodialysis on Saturday schedule via right chest permacath. 2. UTI maintain on antibiotics. 3. Diabetes mellitus. 4. Chronic kidney disease mineral bone disease. Maintained on Renvela. 5. Altered mental status. Possibly from UTI. 6. Hyperkalemia from chronic kidney disease and missed dialysis treatment. Plan: Currently seen while undergoing hemodialysis. Another treatment tomorrow per her outpatient schedule. Repeat potassium level this afternoon. Renal diet. Follow-up cultures. Thank you for the consultation. I will continue to follow the patient with you during her hospital stay.
[2020-11-23 16:49] LABS: Glucose,Whole Blood 130 mg/dL (75-99)
[2020-11-23] MEDS ORDERED: NON FORMULARY DRUG (Omega-3/Dha/Epa/Fish Oil [Fish Oil 500 Mg Softgel] 1 EACH Capsule) PO SCH (17:00)
[2020-11-23] MEDS ORDERED: ASCORBIC ACID 500 MG TAB PO SCH (17:00)
[2020-11-23] MEDS ORDERED: FOLIC ACID-VIT B COMPLEX-VIT C 1 CAP PO SCH (17:00)
[2020-11-23 20:11] LABS: Glucose,Whole Blood 122 mg/dL (75-99)
[2020-11-23] MEDS: SODIUM CHLORIDE 0.9% 1,000 ML IV SCH (20:35)
[2020-11-23] MEDS ORDERED: BYDUREON BCISE SQ SCH (21:00)
[2020-11-23] MEDS: EZETIMIBE 10 MG TAB PO SCH (22:01)
[2020-11-24] MEDS ORDERED: INSULIN DETEMIR (LEVEMIR) 100 UNIT/ML SYR SQ SCH (05:00)
[2020-11-24] MEDS ORDERED: ASPIRIN 81 MG PO SCH (05:00)
[2020-11-24] MEDS ORDERED: PANTOPRAZOLE 40 MG TABLET PO SCH (05:00)
[2020-11-24] MEDS: traMADol 50 MG TAB PO SCH ×2 (05:48→10:43)
[2020-11-24] MEDS: ACETAMINOPHEN TAB 500 MG TAB PO SCH ×2 (05:48→10:43)
[2020-11-24 07:29] LABS: Basophils # (A) 0.1 k/uL (0-0.2); Basophils % (A) 0 %; Eosinophils # (A) 0.2 k/uL (0-0.7); Eosinophils % (A) 1 %; HCT 35.8 % (34.0-46.0); HGB 11.7 gm/dL (11.4-16.0); Lymphocytes # (A) 0.9 k/uL (1.0-4.8); Lymphocytes % (A) 7 %; MCH 34.1 pg (25.0-35.0); MCHC 32.6 g/dL (31.0-37.0); MCV 104.4 fL (80.0-100.0); Macrocytosis Slight; Mean Platelet Volume 7.3; Monocytes # (A) 1.1 k/uL (0-1.0); Monocytes % (A) 8 %; Neutrophils % (A) 82 %; Platelet Count 279 k/uL (150-450); RBC 3.43 m/uL (3.80-5.40); RDW 13.5 % (11.5-15.5); WBC 13.4 k/uL (3.8-10.6)
[2020-11-24 07:33] LABS: Glucose,Whole Blood 94 mg/dL (75-99)
[2020-11-24] MEDS: INSULIN ASPART (NovoLOG) 100 UNIT/ML VIAL SQ SCH ×2 (07:36→12:06)
[2020-11-24 07:40] LABS: African American GFR (CKD) 8 (>60 ml/min/1.73 sqM); Anion Gap 13 mmol/L; Blood Urea Nitrogen 46 mg/dL (7-17); Calcium 9.5 mg/dL (8.4-10.2); Carbon Dioxide 23 mmol/L (22-30); Chloride 98 mmol/L (98-107); Glucose 98 mg/dL (74-99); Non-African American GFR(CKD) 7 (>60 ml/min/1.73 sqM); Potassium 5.2 mmol/L (3.5-5.1); Sodium 134 mmol/L (137-145)
[2020-11-24] MEDS: AZITHROMYCIN 500 MG TAB PO SCH (07:42)
[2020-11-24] MEDS: SEVELAMER 800 MG TAB PO SCH ×2 (07:42→12:06)
[2020-11-24] MEDS: APIXABAN 2.5 MG TABLET PO SCH (07:42)
[2020-11-24] MEDS: METOPROLOL TARTRATE 50 MG TAB PO SCH (07:44)
[2020-11-24] MEDS: FUROSEMIDE 80 MG TAB PO SCH ×2 (07:44→12:06)
[2020-11-24 12:07] LABS: Glucose,Whole Blood 133 mg/dL (75-99)
--- NOTE | 2020-11-24 12:29 | P.DS ---
Providers Date of admission: 11/22/20 18:39 Attending physician: Asaf Ordonez Consults: 11/22/20 17:59 Consult Physician Routine Consulting Provider: Tigre Helton Consult Reason/Comments: ESRD Do you want consulting provider notified?: Yes Primary care physician: Jp Brooks [facility] Course: 75-year-old female came to emergency department after she refused hemodialysis. Patient is found to be hyperkalemic and patient is a [facility]. was apparently confused as well although I'm unable to get into much of the history from the patient as patient intentionally doesn't want to provide much of the history. Patient although said she didn't get covert vaccine. Patient had a chest x-ray which is showing some infiltrate which is diffuse and predominantly in the right lower lobes and hilar area. Patient did have low- grade fevers we are waiting on COVID-19 PCR testing. Patient does have lymphopenia I do not have an LDH available at this time. 11/23/2020 Patient is undergoing hemodialysis today. Patient is negative for COVID-19. Patient was started on antibiotics for possible right lower lobe pneumonia and patient is presently on Rocephin and azithromycin. A since urine is abnormal as well as I cannot get much of the history from the patient and cannot rule out urinary tract infection. We'll await urine cultures and blood cultures. 11/24/2020 Patient is clinically at her baseline patient is receiving hemodialysis today possibly will be discharged today to [facility] medical facility. Mental status is at her baseline. Avoid the Ativan, and any other narcotics and opiates. tramadol will be changed as-needed basis. PHYSICAL EXAMINATION: GENERAL: The patient is alert and in unable to assess orientation, not in any acute distress. Obese HEENT: Pupils are round and equally reacting to light. EOMI. No scleral icterus. No conjunctival pallor. Normocephalic, atraumatic. No pharyngeal erythema. No thyromegaly. CARDIOVASCULAR: S1 and S2 present. No murmurs, rubs, or gallops. PULMONARY: Chest is clear to auscultation, no wheezing or crackles. ABDOMEN: Soft, nontender, nondistended, normoactive bowel sounds. No palpable organomegaly. MUSCULOSKELETAL: No joint swelling or deformity. EXTREMITIES: No cyanosis, clubbing, or pedal edema. NEUROLOGICAL: Gross neurological examination did not reveal any focal deficits. SKIN: No rashes. Assessment and Plan Plan: -sepsis : Secondary to either pneumonia or urinary tract infection, urine cultures are still not available at this time. Patient will be discharged on Ceftin -Altered mental status: Seconded toxic encephalopathy because of narcotics and possibly infection -Missing hemodialysis with mild volume overload and hyperkalemia: Patient had hemodialysis yesterday and today. -Atrial fibrillation patient is presently rate controlled continue with the anticoagulation patient is probably paroxysmal A. fib -DVT in the past -Type 2 diabetes mellitus patient will be resumed on home regimen along with sliding scale -Hyperlipidemia -Hypertension Plan - Discharge Summary Discharge Rx Participant: No New Discharge Prescriptions: New Cefuroxime Axetil [Ceftin] 500 mg PO BID 5 Days #10 tab Continue Ezetimibe [Zetia] 10 mg PO HS@2100 Metoprolol Tartrate [Lopressor] 50 mg PO SUMOWEFR@0700 Ascorbic Acid [Vitamin C] 500 mg PO DAILY@1700 Cinnamon Bark [Cinnamon] 1,000 mg PO BID [place]-3/Dha/Epa/Fish Oil [Fish Oil 500 mg Softgel] 1 cap PO DAILY@1700 Omeprazole 20 mg PO SUMOWEFR@0700 Midodrine HCl [ProAmatine] 10 mg PO TUTHSA@0500 Fluticasone Nasal [place] [Flonase Nasal [place]] 1 spr EA NOSTRIL DAILY PRN PRN Reason: Allergy Symptoms bisacodyL [Bisacodyl] 10 mg RECTAL Q72H PRN PRN Reason: Constipation INSULIN ASPART (NovoLOG) [NovoLOG (formulary)] See Protocol SQ ACHS Bydureon Bcise 2mg/0.85ml 2 mg SQ WE@2100 Renvela Packet 0.8gm 2.4 gm PO TID@0700,1200,1700 Acetaminophen Tab [Tylenol] 650 mg PO Q4H PRN PRN Reason: Pain Apixaban [Eliquis] 2.5 mg PO BID diphenhydrAMINE [Benadryl] 25 mg PO Q8H PRN PRN Reason: Itching Furosemide [Lasix] 80 mg PO BID Insulin Glargine,Hum.rec.anlog [Basaglar Kwikpen U-100] 25 unit SQ SUMOWEFR@0700 Metoprolol Tartrate [Lopressor] 50 mg PO HS Ondansetron [Zofran] 4 mg PO Q4H PRN PRN Reason: Nausea And Vomiting Magnesium Hydroxide [Milk of Magnesia] 2,400 mg PO Q24H PRN PRN Reason: Constipation Vit B Complx C/Folic Acid/Zinc [Renaplex Tablet] 1 tab PO DAILY@1700 Omeprazole 20 mg PO TUTHSA@0500 Renvela Packet 0.8gm 0.8 gm PO HS@2000 Mag Hydrox/Aluminum Hyd/Simeth [Mylanta Maximum Strength Liq] 10 ml PO Q4H PRN PRN Reason: Indigestion Insulin Glargine,Hum.rec.anlog [Basaglar Kwikpen U-100] 25 unit SQ TUTHSA@0500 Aspirin EC [Ecotrin Low Dose] 81 mg PO SUMOFR@0700 Aspirin EC [Ecotrin Low Dose] 81 mg PO TUTHSA@0500 Acetaminophen Tab [Tylenol] 500 mg PO QID@,,, Changed traMADol HCL 50 mg PO QID@,,, #10 tab Discontinued LORazepam [Ativan] 1 mg PO HS@2000 LORazepam [Ativan] 1 mg PO TUTHSA@0500 Discharge Medication List Ezetimibe [Zetia] 10 mg PO HS@2100 12/22/17 [History] Metoprolol Tartrate [Lopressor] 50 mg PO SUMOWEFR@0712/22/17 [History] Ascorbic Acid [Vitamin C] 500 mg PO DAILY@1700 08/19/18 [History] Cinnamon Bark [Cinnamon] 1,000 mg PO BID 02/10/19 [History] [place]-3/Dha/Epa/Fish Oil [Fish Oil 500 mg Softgel] 1 cap PO DAILY@1700 02/10/19 [History] Fluticasone Nasal [place] [Flonase Nasal [place]] 1 spr EA NOSTRIL DAILY PRN 09/23/19 [History] INSULIN ASPART (NovoLOG) [NovoLOG (formulary)] See Protocol SQ ACHS 09/23/19 [History] Midodrine HCl [ProAmatine] 10 mg PO TUTHSA@0500 09/23/19 [History] Omeprazole 20 mg PO SUMOWEFR@0700 09/23/19 [History] bisacodyL [Bisacodyl] 10 mg RECTAL Q72H PRN 09/23/19 [History] Acetaminophen Tab [Tylenol] 650 mg PO Q4H PRN 05/10/20 [History] Apixaban [Eliquis] 2.5 mg PO BID 05/10/20 [History] Bydureon Bcise 2mg/0.85ml 2 mg SQ WE@2100 05/10/20 [History] Furosemide [Lasix] 80 mg PO BID 05/10/20 [History] Insulin Glargine,Hum.rec.anlog [Basaglar Kwikpen U-100] 25 unit SQ SUMOWEFR@0700 05/10/20 [History] Magnesium Hydroxide [Milk of Magnesia] 2,400 mg PO Q24H PRN 05/10/20 [History] Metoprolol Tartrate [Lopressor] 50 mg PO HS 05/10/20 [History] Ondansetron [Zofran] 4 mg PO Q4H PRN 05/10/20 [History] Renvela Packet 0.8gm 2.4 gm PO TID@0700,1200,1700 05/10/20 [History] diphenhydrAMINE [Benadryl] 25 mg PO Q8H PRN 05/10/20 [History] Acetaminophen Tab [Tylenol] 500 mg PO QID@05,11,17,21 11/22/20 [History] Aspirin EC [Ecotrin Low Dose] 81 mg PO SUMOFR@0700 11/22/20 [History] Aspirin EC [Ecotrin Low Dose] 81 mg PO TUTHSA@0500 11/22/20 [History] Insulin Glargine,Hum.rec.anlog [Basaglar Kwikpen U-100] 25 unit SQ TUTHSA@0500 11/22/20 [History] Mag Hydrox/Aluminum Hyd/Simeth [Mylanta Maximum Strength Liq] 10 ml PO Q4H PRN 11/22/20 [History] Omeprazole 20 mg PO TUTHSA@0500 11/22/20 [History] Renvela Packet 0.8gm 0.8 gm PO HS@2000 11/22/20 [History] Vit B Complx C/Folic Acid/Zinc [Renaplex Tablet] 1 tab PO DAILY@1700 11/22/20 [History] Cefuroxime Axetil [Ceftin] 500 mg PO BID 5 Days #10 tab 11/24/20 [Rx] traMADol HCL 50 mg PO QID@05,11,17, #10 tab 11/24/20 [Rx] Follow up Appointment(s)/Referral(s): Jp Brooks MD [Primary Care Provider] - 3 Days [facility], [NON-STAFF] - As Needed
[2020-11-24 12:31] VITALS: RESP 18
--- NOTE | 2020-11-24 12:54 | P.PN ---
Subjective Patient is seen in follow-up for end-stage renal disease. Currently seen was undergoing hemodialysis. Mentation at baseline. Hemodynamically stable. No chest pain or shortness of breath. Vital signs are stable. General: The patient appeared well nourished and normally developed. HEENT: Head exam is unremarkable. Neck is without jugular venous distension. LUNGS: Breath sounds decreased. HEART: Rate and Rhythm are regular. ABDOMEN: Soft, obese. EXTREMITITES: No edema. Chronic changes noted. Objective - Vital Signs Vital signs: Vital Signs Temp 98.0 F 11/24/20 12:29 Pulse 59 L 11/24/20 12:29 Resp 18 11/24/20 12:29 BP 179/70 11/24/20 12:29 Pulse Ox 91 L 11/24/20 07:50 Intake & Output 11/23/20 11/24/20 11/24/20 18:59 06:59 18:59 Intake Total 50 50 Output Total 800 1000 Balance -750 -950 Weight 101 kg Intake: Intake, IV Titration 50 50 Amount cefTRIAXone 2 gm In 50 50 Sodium Chloride 0.9% 50 ml @ 100 mls/hr IVPB Q24HR [facility] Rx#:[id number] Output: Urine 800 Hemodialysis 1000 Other: Voiding Method Indwelling Catheter Indwelling Catheter Indwelling Catheter - Labs CBC & Chem 7: 11/24/20 06:33 11/24/20 06:33 Labs: Abnormal Lab Results - Last 24 Hours (Table) 11/22/20 11/23/20 11/23/20 Range/Units 19:24 16:47 20:10 WBC (3.8-10.6) k/uL RBC (3.80-5.40) m/uL MCV (80.0-100.0) fL Neutrophils # (1.3-7.7) k/uL Lymphocytes # (1.0-4.8) k/uL Monocytes # (0-1.0) k/uL Sodium (137-145) mmol/L Potassium (3.5-5.1) mmol/L BUN (7-17) mg/dL Creatinine (0.52-1.04) mg/dL POC Glucose (mg/dL) 130 H 122 H (75-99) mg/dL Procalcitonin 8.87 H (0.02-0.09) ng/mL 04/11/24/20 11/24/20 Range/Units 06:33 06:33 11:50 WBC 13.4 H (3.8-10.6) k/uL RBC 3.43 L (3.80-5.40) m/uL MCV 104.4 H (80.0-100.0) fL Neutrophils # 11.0 H (1.3-7.7) k/uL Lymphocytes # 0.9 L (1.0-4.8) k/uL Monocytes # 1.1 H (0-1.0) k/uL Sodium 134 L (137-145) mmol/L Potassium 5.2 H (3.5-5.1) mmol/L BUN 46 H (7-17) mg/dL Creatinine 5.70 H (0.52-1.04) mg/dL POC Glucose (mg/dL) 133 H (75-99) mg/dL Procalcitonin (0.02-0.09) ng/mL Microbiology - Last 24 Hours (Table) 11/22/20 19:24 Blood Culture - Preliminary Blood No Growth after 24 hours 11/23/20 06:30 Urine Culture - Preliminary Urine,Voided Assessment and Plan Plan: Assessment: 1. End-stage renal disease maintained on hemodialysis on Saturday schedule via right chest permacath. 2. UTI maintain on antibiotics. 3. Diabetes mellitus. 4. Chronic kidney disease mineral bone disease. Maintained on Renvela. 5. Altered mental status. Possibly from UTI. Improved. 6. Hyperkalemia from chronic kidney disease and missed dialysis treatment. Improved postdialysis. Plan: Currently seen while undergoing hemodialysis. Next treatment on Saturday. Renal diet. Follow-up cultures. Anticipate discharge soon back to ECF.
[2020-11-24 15:00] VITALS: BP 112/66; PULSE 76; TEMP 98.1
[2020-11-25] MEDS ORDERED: ASPIRIN 81 MG PO SCH (07:00)
[2020-11-25] MEDS ORDERED: bisacodyL 10 MG SUPP RECTAL PRN (09:00)
== END 2020-11-24 15:50 | DRG 871 ==
LOC: EC 12:27 → 4SSUR 18:39
PROVIDERS: ADMIT Internal Medicine; ATTEND Internal Medicine
PROC: 5A1D70Z Performance of Urinary Filtration, Intermittent, Less than 6 Hours Per Day (ICD-10-PCS; principal; 2020-11-22)
DX: A41.9 Sepsis, unspecified organism (principal); G92 Toxic encephalopathy; N18.6 End stage renal disease; J18.9 Pneumonia, unspecified organism; I13.2 Hypertensive heart and chronic kidney disease with heart failure and with stage 5 chronic kidney disease, or end stage renal disease; N39.0 Urinary tract infection, site not specified; D72.810 Lymphocytopenia; E87.5 Hyperkalemia; E11.22 Type 2 diabetes mellitus with diabetic chronic kidney disease; I48.0 Paroxysmal atrial fibrillation; Z20.822 Contact with and (suspected) exposure to COVID-19; Z91.15 Patient's noncompliance with renal dialysis; Z79.01 Long term (current) use of anticoagulants; Z79.82 Long term (current) use of aspirin; Z79.4 Long term (current) use of insulin; Z99.2 Dependence on renal dialysis; Z86.14 Personal history of Methicillin resistant Staphylococcus aureus infection; Z82.49 Family history of ischemic heart disease and other diseases of the circulatory system; E78.5 Hyperlipidemia, unspecified; Z86.718 Personal history of other venous thrombosis and embolism; I50.9 Heart failure, unspecified; M89.8X9 Other specified disorders of bone, unspecified site; J45.909 Unspecified asthma, uncomplicated; Z79.899 Other long term (current) drug therapy; Z86.73 Personal history of transient ischemic attack (TIA), and cerebral infarction without residual deficits
CPT/HCPCS: 36415; 70450; 71045; 71046; 80048; 80053; 81001; 82607; 83615; 84100; 84132; 84145; 84484; 85025; 85379; 85610; 85730; 87040; 87077; 87086; 87186; 87636; 90935; 93005; 96360; 99285

== ENCOUNTER 2021-02-14 10:56 | Inpatient (IN) | payer MEDICARE, OTHER ==
--- NOTE | 2021-02-14 11:22 | ED ---
General Adult HPI <Marc Dejesus - Last Filed: 02/14/21 11:34> - General Source: EMS Mode of arrival: EMS Limitations: altered mental status <Flaca Guzman - Last Filed: 02/14/21 12:08> - General Chief complaint: Altered Mental Status Stated complaint: altered mental status Time Seen by Provider: 02/14/21 11:02 - History of Present Illness Initial comments: Patient is a 75-year-old female with history of COPD on 4L, CHF, ESRD on HD TTS, A fib on eliquis presenting to emergency Department via EMS as a transfer from [facility] for altered mental status, and needing hemodialysis. Patient has been admitted to [facility] after head injury earlier this month, she was not acting herself so they brought her into the hospital for evaluation. She did not have her dialysis this morning. Patient is denying pain anywhere. Patient is typically a and O 1-2, she does frequently yell out "somebody help me" which appears to be the baseline. Patient is currently on Cipro for UTI diagnosed yesterday. Urine culture is in process. Blood cultures were drawn at [facility] today. Patient was started on cefepime 1 g and vancomycin 1 g before transfer. Patient currently has no complaints other than feeling thirsty. There is nothing further. Upon arrival to our facility, her vital signs are within normal limits. (Flaca Guzman) - Related Data Home Medications Medication Instructions Recorded Confirmed Ezetimibe [Zetia] 10 mg PO HS@2100 12/22/17 11/22/20 Metoprolol Tartrate [Lopressor] 50 mg PO SUMOWEFR@0700 12/22/17 11/22/20 Ascorbic Acid [Vitamin C] 500 mg PO DAILY@1700 08/19/18 11/22/20 Cinnamon Bark [Cinnamon] 1,000 mg PO BID 02/10/19 11/22/20 [place]-3/Dha/Epa/Fish Oil [Fish Oil 1 cap PO DAILY@1700 02/10/19 11/22/20 500 mg Softgel] Fluticasone Nasal [place] [Flonase 1 spr EA NOSTRIL DAILY PRN 09/23/19 11/22/20 Nasal [place]] INSULIN ASPART (NovoLOG) [NovoLOG See Protocol SQ ACHS 09/23/19 11/22/20 (formulary)] Midodrine HCl [ProAmatine] 10 mg PO TUTHSA@0500 09/23/19 11/22/20 Omeprazole 20 mg PO SUMOWEFR@0700 09/23/19 11/22/20 bisacodyL [Bisacodyl] 10 mg RECTAL Q72H PRN 09/23/19 11/22/20 Acetaminophen Tab [Tylenol] 650 mg PO Q4H PRN 05/10/20 11/22/20 Apixaban [Eliquis] 2.5 mg PO BID 05/10/20 11/22/20 Bydureon Bcise 2mg/0.85ml 2 mg SQ WE@2100 05/10/20 11/22/20 Furosemide [Lasix] 80 mg PO BID 05/10/20 11/22/20 Insulin Glargine,Hum.rec.anlog 25 unit SQ SUMOWEFR@0700 05/10/20 11/22/20 [Basaglar Kwikpen U-100] Magnesium Hydroxide [Milk of 2,400 mg PO Q24H PRN 05/10/20 11/22/20 Magnesia] Metoprolol Tartrate [Lopressor] 50 mg PO HS 05/10/20 11/22/20 Ondansetron [Zofran] 4 mg PO Q4H PRN 05/10/20 11/22/20 Renvela Packet 0.8gm 2.4 gm PO TID@0700,1200,1700 05/10/20 11/22/20 diphenhydrAMINE [Benadryl] 25 mg PO Q8H PRN 05/10/20 11/22/20 Acetaminophen Tab [Tylenol] 500 mg PO QID@05,11,17,21 11/22/20 11/22/20 Aspirin EC [Ecotrin Low Dose] 81 mg PO SUMOFR@0700 11/22/20 11/22/20 Aspirin EC [Ecotrin Low Dose] 81 mg PO TUTHSA@0500 11/22/20 11/22/20 Insulin Glargine,Hum.rec.anlog 25 unit SQ TUTHSA@0500 11/22/20 11/22/20 [Basaglar Kwikpen U-100] Mag Hydrox/Aluminum Hyd/Simeth 10 ml PO Q4H PRN 11/22/20 11/22/20 [Mylanta Maximum Strength Liq] Omeprazole 20 mg PO TUTHSA@0500 11/22/20 11/22/20 Renvela Packet 0.8gm 0.8 gm PO HS@199911/22/20 11/22/20 Vit B Complx C/Folic Acid/Zinc 1 tab PO DAILY@1700 11/22/20 11/22/20 [Renaplex Tablet] Previous Rx's Medication Instructions Recorded Cefuroxime Axetil [Ceftin] 500 mg PO BID 5 Days #10 tab 11/24/20 traMADol HCL 50 mg PO QID@05,11,17,21 #10 tab 11/24/20 Allergies Allergy/AdvReac Type Severity Reaction Status Date / Time lisinopril Allergy Itching Verified 11/22/20 14:49 Oflnjbj-Wdd-Zym Reductase Allergy Itching Verified 11/22/20 14:49 Inhibitor Review of Systems ROS Other: All systems not noted in ROS Statement are negative. <Marc Dejesus - Last Filed: 02/14/21 11:34> ROS Other: All systems not noted in ROS Statement are negative. <Flaca Guzman - Last Filed: 02/14/21 12:08> ROS Statement: Those systems with pertinent positive or pertinent negative responses have been documented in the HPI. Past Medical History Past Medical History: Atrial Fibrillation, Asthma, Heart Failure, CVA/TIA, Diabetes Mellitus, Deep Vein Thrombosis (DVT), GERD/Reflux, Hyperlipidemia, Hypertension, Osteoarthritis (OA), Renal Disease Additional Past Medical History / Comment(s): TIA 2018; HEMODIALYSIS //SATURDAY 06-given ativan prior to dialysis History of Any Multi-Drug Resistant Organisms: MRSA Date of last positivie culture/infection: 05/12/20 MDRO Source:: MRSA URINE Past Surgical History: Adenoidectomy, Appendectomy, Cholecystectomy, Pacemaker, Tonsillectomy Past Anesthesia/Blood Transfusion Reactions: No Reported Reaction Type of Cardiac Device: Permanent Pacemaker Device Placement Date:: 2016 Past Psychological History: Anxiety, Depression Smoking Status: Never smoker Past Alcohol Use History: None Reported Past Drug Use History: None Reported - Past Family History Father Family Medical History: Myocardial Infarction ([place]) Additional Family Medical History / Comment(s): RHEUMATIC FEVER <Flaca Guzman Last Filed: 02/14/21 12:08> General Exam Limitations: altered mental status <Flaca Guzman - Last Filed: 02/14/21 12:08> - General Exam Comments Initial Comments: GENERAL: Patient is nontoxic and in no acute distress. HEAD: Atraumatic, normocephalic. Patient has a healing wound on the right forehead, no signs of infection. EYES: Pupils equal round and reactive to light, extraocular movements intact, sclera anicteric, conjunctiva are normal. Eyelids were unremarkable. ENT: TMs normal, nares patent, oropharynx clear without exudates. Moist mucous membranes. NECK: Normal range of motion, supple without lymphadenopathy or JVD. LUNGS: Unlabored respirations. Diminished breath sounds HEART: Regular rate and rhythm without murmurs, rubs or gallops. ABDOMEN: Soft, nontender, normoactive bowel sounds. No guarding, no rebound. No masses appreciated. : Deferred MUSCULOSKELETAL: Normal extremities with adequate strength and normal range of motion, no pitting or edema. No clubbing or cyanosis. NEUROLOGICAL: Patient is alert and oriented x 1, this is her baseline, often cries out "somebody help me". PSYCH: Normal mood, normal affect. SKIN: Warm, Dry, normal turgor, no rashes. Patient has hemodialysis port on the right upper chest. (Flaca Guzman) Course <Marc Dejesus - Last Filed: 02/14/21 11:34> Vital Signs 02/14/21 11:11 Temperature 97.5 F L Pulse Rate 61 Respiratory 18 Rate Blood Pressure 118/41 O2 Sat by Pulse 97 Oximetry - Reevaluation(s) Reevaluation #1: 02/14/21 11:34 PA supervision: I personally reviewed this case and evaluate the patient patient was transferred from [facility] for change in mental status found have a left pleural effusion. Patient is a dialysis patient. Patient be admitted to Dr. Harman. I do agree with the assessment and plan (Marc Dejesus) Medical Decision Making <MeganKarliFlaca L - Last Filed: 02/14/21 12:08> - Medical Decision Making Patient is a 75-year-old female with history of COPD, on 4 L, CHF, ESRD, on HD TTS, A. fib on our requests, presenting as a transfer from [facility] for pleural effusion, needing hemodialysis. Her vital signs are stable upon arrival, currently on 4 L. She is a and O times one which is her baseline. Labs reveal an elevated white count at 28, potassium is 5.5, BUN and creatinine are also elevated. She is currently being treated for a UTI, urine culture is in process, she started on Cipro yesterday. Blood cultures were obtained at [facility] for transfer. CT the head showed no acute process, chest x-ray appears to have left pleural effusion and possible infiltrate. Patient was started on cefepime 1 g and vancomycin 1 g before transfer. (Flaca Guzman) Disposition <Marc Dejeuss - Last Filed: 02/14/21 11:34> Decision Date: 02/14/21 Decision Time: 12:08 <Flaca Guzman - Last Filed: 02/14/21 12:08> Clinical Impression: UTI (urinary tract infection), Chronic renal failure, Pleural effusion, Altered mental status Disposition: ADMITTED IP TO THIS HOSP Condition: Stable
[2021-02-14] MEDS ORDERED: NALOXONE 0.4 MG/ML 1 ML VIAL IV PRN (11:33)
[2021-02-14] MEDS ORDERED: MELATONIN 3 MG TABLET PO PRN (12:10)
[2021-02-14] MEDS ORDERED: MAGNESIUM HYDROXIDE 2,400 MG/10 ML CUP PO PRN ×2 (12:10→21:01)
[2021-02-14] MEDS ORDERED: LACTULOSE 20 GM/30 ML CUP PO PRN (12:10)
[2021-02-14] MEDS ORDERED: MAG HYDROX/AL HYDROX/SIMETH 30 ML CUP PO PRN ×2 (12:10→21:01)
--- NOTE | 2021-02-14 12:50 | XR ---
EXAMINATION TYPE: XR chest 2V DATE OF EXAM: 02/14/2021 COMPARISON: 11/23/2020 HISTORY: Pleural effusion TECHNIQUE: Frontal and lateral views of the chest are obtained. FINDINGS: Dialysis catheter and pacer leads are unchanged. Interval development of patchy airspace disease bilaterally with large left pleural effusion and left -sided airspace disease. Massive enlargement of the cardiac silhouette is seen. IMPRESSION: Interval development of patchy airspace disease bilaterally with large left pleural effusion and left -sided airspace disease. Massive enlargement of the cardiac silhouette is seen.
[2021-02-14 14:54] LABS: Appearance,Urine Turbid (Clear); Bacteria,Urine Occasional /hpf; Bilirubin,Urine Negative (Negative); Blood,Urine Moderate (Negative); Color,Urine Yellow; Glucose,Urine (UA) Negative (Negative); Hyaline Casts,Urine 17 /lpf (0-2); Ketones,Urine Negative (Negative); Leukocyte Esterase,Urine Large (Negative); Mucus,Urine Rare /hpf; Nitrite,Urine Negative (Negative); PH, Urine 5.5 (5.0-8.0); Protein,Urine 2+ (Negative); RBC,Urine 40 /hpf (0-5); Squamous Epithelial Cell,Urine 2 /hpf (0-4); Urobilinogen,Urine <2.0 mg/dL (<2.0); WBC,Urine >182 /hpf (0-5)
[2021-02-14 17:43] LABS: Glucose,Whole Blood 186 mg/dL (75-99)
[2021-02-14 17:51] LABS: Basophils # (A) 0.1 k/uL (0-0.2); Basophils % (A) 0 %; Eosinophils # (A) 0.2 k/uL (0-0.7); Eosinophils % (A) 1 %; HCT 33.2 % (34.0-46.0); HGB 10.3 gm/dL (11.4-16.0); Hypochromasia Slight; Lymphocytes # (A) 0.6 k/uL (1.0-4.8); Lymphocytes % (A) 3 %; MCH 35.1 pg (25.0-35.0); Macrocytosis Marked; Mean Platelet Volume 7.7; Monocytes # (A) 0.8 k/uL (0-1.0); Monocytes % (A) 3 %; Neutrophils % (A) 92 %; Platelet Count 455 k/uL (150-450); RBC 2.94 m/uL (3.80-5.40); RDW 15.9 % (11.5-15.5); WBC 22.8 k/uL (3.8-10.6)
[2021-02-14] MEDS ORDERED: RX INFO: IV CONTRAST WAS GIVEN 1 EACH MISC MISCELLANE PRN (18:02)
[2021-02-14 18:09] LABS: ALT 9 U/L (4-34); AST 15 U/L (14-36); African American GFR (CKD) 11 (>60 ml/min/1.73 sqM); Albumin 3.4 g/dL (3.5-5.0); Albumin/Globulin Ratio 1.1; Alkaline Phosphatase 137 U/L (38-126); Anion Gap 15 mmol/L; Blood Urea Nitrogen 37 mg/dL (7-17); Calcium 9.6 mg/dL (8.4-10.2); Carbon Dioxide 27 mmol/L (22-30); Chloride 101 mmol/L (98-107); Globulin 3.2 g/dL; Glucose 169 mg/dL (74-99); Non-African American GFR(CKD) 10 (>60 ml/min/1.73 sqM); Potassium 3.9 mmol/L (3.5-5.1); Sodium 143 mmol/L (137-145); Total Bilirubin 0.4 mg/dL (0.2-1.3); Total Protein 6.6 g/dL (6.3-8.2)
[2021-02-14 18:56] LABS: Glucose,Whole Blood 201 mg/dL (75-99)
--- NOTE | 2021-02-14 19:00 | CT ---
EXAMINATION TYPE: CT angio chest DATE OF EXAM: 02/14/2021 COMPARISON: None HISTORY: Aortic dissection, pericardial effusion. Decreased pressures during dialysis. Abnormal cxr. CT DLP: 1081.2 mGycm Automated exposure control for dose reduction was used. CONTRAST: Performed without and with IV Contrast, patient injected with 100 mL of Isovue 370. There are 3-D post processed images. There is large left pleural effusion. Heart is moderately enlarged. There is pericardial effusion. There is no evidence of filling defect in the pulmonary arteries. Thoracic aorta is atheromatous. The re is no dissection. There is 4.1 cm aneurysm of the ascending aorta. There is extensive atelectasis in the left lung. There is very little pneumatization of the left hemithorax. There is diffuse inters titial infiltrate in the right lung. There is small right pleural effusion. There is no compression fracture in the thoracic spine. The sternum is intact. IMPRESSION: No evidence of pulmonary embolism. Mild aneurysm ascending aorta. No dissection. Bilateral pleural effusions and much larger on the left side. Left side hydrothorax. Interstitial inf iltrates in the right lung.
--- NOTE | 2021-02-14 19:10 | P.EN ---
A- team: Indication: Hypotension Patient seen and examined at bedside. The nurse was concern that the patient was hypertensive and then hypotensive during dialysis. Dialysis immediately stopped. Patient had been sent in from [place] secondary to altered mentation. Outside labs reviewed. Notable for potassium of 5.5 and a white blood cell c ount of 20. Outside head CT from earlier today showed no acute intracranial process. Chest x-ray reviewed which showed right-sided tracheal deviation and near complete opacification of the left hemithorax. Vital signs reviewed General: Ill appearing, appears at stated age Derm: warm, dry Head: atraumatic, normocephalic, symmetric Eyes: Dilated pupils, EOMI, no lid lag, anicteric sclera Mouth: no lip lesion, mucus membranes moist Cardiovascular: S1S2 reg with murmur, positive posterior tibial pulse bilateral, Lungs: Absent breath sounds on the left, diminished breath sounds on the right, no accessory muscle use, no conversational dyspnea Abdominal: soft, nontender to palpation, no guarding, no appreciable organomegaly Ext: no gross muscle atrophy, no edema, no contractures Neuro: CN II-XI grossly intact, able to show me a thumbs up and both hands, wiggle both feet Psych: Responds to her name, denies any pain. Assessment/Plan: Hypotension with variable blood pressures, altered mentation -Likely secondary to need for wrist and leg cough. -Dialysis have been aborted -Chest x-ray reviewed and concerns for aortic dissection given widened mediastinum. We'll proceed with CT of the chest to rule out dissection. Discussed with Dr. Helton who states that patient is an acceptable candidate for IV contrast dye that they will agree do dialysis in the morning -Await repeat labs -Check blood cultures off of permanent dialysis catheter -Neuro check every 4 hours -Transfer patient to selective care. No beds available and she is selective over flow in an ICU bed. - Received vanco and cefepime, and cipro Notified: Case discussed with Dr. Harman over the phone.
--- NOTE | 2021-02-14 21:07 | P.HPIM ---
History of Present Illness H&P Date: 02/14/21 Chief Complaint: Short of breath History of presenting complaint: This is a 75-year-old patient who follows with Dr. Jp Brooks. Patient is resident of [facility] from where she was transferred to [facility]. Chronic stable medical conditions include CHF, end-stage kidney disease on hemodialysis TTS, atrial fibrillation, permanent pacemaker, G ERD. COPD. On 4 L of oxygen at baseline. Patient just recently was at [facility] following a head trauma. Laying down which she was carried out. At her baseline patient is AO 2. Patient was transferred to [facility] as patient had become a bit confused. Normally on 4 L of oxygen she is oxygen is a 90% but dropped down to 80s. Computed tomography scan of the head was unremarkable. Chest x-rays shown pleural effusion. Also patient was started on ciprofloxacin for recent UTI. I saw the patient in the ER this afternoon. She does not want to be here she says. Patient not a good historian. Nephrology and pulmonary were consulted. Patient is short of breath. Slight cough. Not sure about fever. Review of systems: GEN.: Tired EYES: None HEENT: None NECK: None RESPIRATORY: Short of breath CARDIOVASCULAR: None GASTROINTESTINAL: None GENITOURINARY: None MUSCULOSKELETAL: Joint pains LYMPHATICS: None HEMATOLOGICAL: None PSYCHIATRY: Forgetful NEUROLOGICAL: None Past medical history to include: Atrial fibrillation, asthma, CHF, diabetes, DVT, GERD, hypertension, hyperlipidemia, osteomyelitis discitis, end-stage kidney disease with hemodialysis, TIA, permanent pacemaker, more disorder. Oxygen 4-4 L Social history: No history of smoking or alcohol. Currently at resident of [facility] Family history: Rheumatic fever, [place] Physical examination: VITAL SIGNS: 97.5, 61, 18, 118 x 41, 97% on 4 L GENERAL: BMI 36.5, laying in bed, slightly short of breath awake, tired. EYES: Pupils equal. Conjunctiva normal. HEENT: External appearance of nose and ears normal, oral cavity grossly normal. NECK: JVD unable to assess; masses not palpable. HEART: First and second heart sounds are normal; some edema. LUNGS:[ Respiratory rate increased, diminished breath sounds. ABDOMEN: Soft, nontender, liver spleen not palpable, no masses palpable. PSYCH: Patient can tell her name she knows that she the hospital cannot tell the yearl. NEUROLOGICAL: Cranial nerves grossly intact; no facial asymmetry, power and sensation grossly intact. LYMPHATICS: No lymph nodes palpable in the axilla and neck INVESTIGATIONS, reviewed in the clinical context: [Labs from [facility]] WBC 20.4 hemoglobin 10.2 platelets 453 sodium 133 potassium 5.5 BUN 56 crit and 6.7 ALT, AST both normal bilirubin 0.5 albumin 3.7 Troponin I 0.015 Computed tomography scan of the head reportedly negative EKG tracing personally reviewed by me-atrial flutter fibrillation with intraventricular block pattern Chest x-ray film personally reviewed by me-cardiomegaly, trachea pole to the right, pleural effusion Assessment and plan: -Acute hypoxic respiratory failure from large pleural effusion Could be from inadequate hemodialysis and/or CHF. 4 aggressive hemodialysis and possible thoracentesis -Chronic hypoxic respiratory failure on 4 L of oxygen -End-stage kidney disease on hemodialysis, TTS Consult nephrology -Persistent atrial flutter fibrillation Continue eliquis -Acute UTI with cystitis IV ceftriaxone. Culture pending -Diabetes mellitus type 2, chronically on insulin Follow Accu-Cheks. -Chronic hypotension Patient is on midodrine -Chronic medical debility -Acute delirium from hypoxia/hypoxic encephalopathy -Underlying cognitive impairment -Permanent pacemaker Consultation made to nephrology. Pulmonary. Home medications and resume. Follow Accu-Cheks closely. Telemetry. Supplement oxygen. Past Medical History Past Medical History: Atrial Fibrillation, Asthma, Heart Failure, CVA/TIA, Di abetes Mellitus, Deep Vein Thrombosis (DVT), GERD/Reflux, Hyperlipidemia, Hypertension, Osteoarthritis (OA), Renal Disease Additional Past Medical History / Comment(s): TIA 2018; HEMODIALYSIS //SATURDAY 06-given ativan prior to dialysis History of Any Multi-Drug Resistant Organisms: MRSA Date of last positivie culture/infection: 05/12/20 MDRO Source:: MRSA URINE Past Surgical History: Adenoidectomy, Appendectomy, Cholecystectomy, Pacemaker, Tonsillectomy Past Anesthesia/Blood Transfusion Reactions: No Reported Reaction Type of Cardiac Device: Permanent Pacemaker Device Placement Date:: 2016 Past Psychological History: Anxiety, Depression Smoking Status: Never smoker Past Alcohol Use History: None Reported Past Drug Use History: None Reported - Past Family History Father Family Medical History: Myocardial Infarction ([place]) Additional Family Medical History / Comment(s): RHEUMATIC FEVER Medications and Allergies Home Medications Medication Instructions Recorded Confirmed Type Ezetimibe [Zetia] 10 mg PO HS 12/22/17 02/14/21 History Ascorbic Acid [Vitamin C] 500 mg PO DAILY 08/19/18 02/14/21 History Midodrine HCl [ProAmatine] 10 mg PO TUTHSA 09/23/19 02/14/21 History Apixaban [Eliquis] 2.5 mg PO DIRECTED 05/10/20 02/14/21 History Bydureon Bcise 2mg/0.85ml 2 mg SQ WE 05/10/20 02/14/21 History Magnesium Hydroxide [Milk of 2,400 mg PO Q24H PRN 05/10/20 02/14/21 History Magnesia] Ondansetron [Zofran] 4 mg PO Q4H PRN 05/10/20 02/14/21 History Renvela Packet 0.8gm 0.8 gm PO ACHS 05/10/20 02/14/21 History Aspirin EC [Ecotrin Low Dose] 81 mg PO DIRECTED 11/22/20 02/14/21 History Insulin Glargine,Hum.rec.anlog 15 unit SQ DAILY 11/22/20 02/14/21 History [Basaglar Kwikpen U-100] Mag Hydrox/Aluminum Hyd/Simeth 10 ml PO Q4H PRN 11/22/20 02/14/21 History [Mylanta Maximum Strength Liq] Acetaminophen Tab [Tylenol] 650 mg PO TID 02/14/21 02/14/21 History Ciprofloxacin HCl [Cipro] 500 mg PO Q12H 02/14/21 02/14/21 History Cyanocobalamin (Vitamin B-12) 1,000 mcg PO DAILY 02/14/21 02/14/21 History [Vitamin B-12] Insulin Glargine,Hum.rec.anlog 15 units SQ SUMOWEFR 02/14/21 02/14/21 History [Semglee Pen] Insulin Lispro [Insulin Lispro See Protocol SQ ACHS 02/14/21 02/14/21 History Kwikpen U-100] LORazepam [Ativan] 1 mg PO HS 02/14/21 02/14/21 History LORazepam [Ativan] 1 mg PO TUTHSA 02/14/21 02/14/21 History Lactobacillus Acidophilus 1 cap PO DAILY 02/14/21 02/14/21 History [Acidophilus] Metoprolol Tartrate [Lopressor] 25 mg PO DAILY 02/14/21 02/14/21 History Nystatin 1 applic TOPICAL BID 02/14/21 02/14/21 History Renal-Melita Tab 0.8mg 1 tab PO DAILY 02/14/21 02/14/21 History Allergies Allergy/AdvReac Type Severity Reaction Status Date / Time lisinopril Allergy Itching Verified 02/14/21 13:06 Kaeundc-Kzy-Kxj Reductase Allergy Itching Verified 02/14/21 13:06 Inhibitor Physical Exam Vitals: Vital Signs Temp Pulse Pulse Resp BP BP Pulse Ox 02/14/21 18:24 97.9 F 49 L 14 157/73 02/14/21 17:05 97.7 F 93 18 180/85 96 02/14/21 16:00 83 18 136/72 96 02/14/21 15:00 72 18 151/82 97 02/14/21 11:11 97.5 F L 61 18 118/41 97 Intake and Output 02/14/21 02/14/21 02/14/21 06:59 14:59 22:59 Output Total 241 Balance -241 Output: Hemodialysis 241 Other: Weight 93.44 kg Results CBC & Chem 7: 02/14/21 Unknown 02/14/21 Unknown Labs: Abnormal Lab Results - Last 24 Hours (Table) 02/14/21 02/14/21 02/14/21 Range/Units 14:47 17:41 18:54 WBC (3.8-10.6) k/uL RBC (3.80-5.40) m/uL Hgb (11.4-16.0) gm/dL Hct (34.0-46.0) % MCV (80.0-100.0) fL MCH (25.0-35.0) pg RDW (11.5-15.5) % Plt Count (150-450) k/uL Neutrophils # (1.3-7.7) k/uL Lymphocytes # (1.0-4.8) k/uL Macrocytosis BUN (7-17) mg/dL Creatinine (0.52-1.04) mg/dL Glucose (74-99) mg/dL POC Glucose (mg/dL) 186 H 201 H (75-99) mg/dL Alkaline Phosphatase (38-126) U/L Albumin (3.5-5.0) g/dL Urine Appearance Turbid H (Clear) Urine Protein 2+ H (Negative) Urine Blood Moderate H (Negative) Ur Leukocyte Esterase Large H (Negative) Urine RBC 40 H (0-5) /hpf Urine WBC >182 H (0-5) /hpf Urine WBC Clumps Many H (None) /hpf Urine Bacteria Occasional H (None) /hpf Hyaline Casts 17 H (0-2) /lpf Urine Mucus Rare H (None) /hpf 02/14/21 02/14/21 Range/Units Unknown Unknown WBC 22.8 H (3.8-10.6) k/uL RBC 2.94 L (3.80-5.40) m/uL Hgb 10.3 L (11.4-16.0) gm/dL Hct 33.2 L (34.0-46.0) % MCV 113.0 H (80.0-100.0) fL MCH 35.1 H (25.0-35.0) pg RDW 15.9 H (11.5-15.5) % Plt Count 455 H (150-450) k/uL Neutrophils # 21.0 H (1.3-7.7) k/uL Lymphocytes # 0.6 L (1.0-4.8) k/uL Macrocytosis Marked A BUN 37 H (7-17) mg/dL Creatinine 4.23 H (0.52-1.04) mg/dL Glucose 169 H (74-99) mg/dL POC Glucose (mg/dL) (75-99) mg/dL Alkaline Phosphatase 137 H (38-126) U/L Albumin 3.4 L (3.5-5.0) g/dL Urine Appearance (Clear) Urine Protein (Negative) Urine Blood (Negative) Ur Leukocyte Esterase (Negative) Urine RBC (0-5) /hpf Urine WBC (0-5) /hpf Urine WBC Clumps (None) /hpf Urine Bacteria (None) /hpf Hyaline Casts (0-2) /lpf Urine Mucus (None) /hpf
[2021-02-14] MEDS: ALBUTEROL NEBULIZED 2.5 MG/3 ML INHALATION SCH (21:34)
[2021-02-14] MEDS: LORazepam 1 MG TAB PO SCH (22:05)
[2021-02-14] MEDS: MIDODRINE 5 MG TAB PO SCH (22:05)
[2021-02-14] MEDS: EZETIMIBE 10 MG TAB PO SCH (22:05)
[2021-02-14 22:10] LABS: Glucose,Whole Blood 240 mg/dL (75-99)
[2021-02-14] MEDS: INSULIN ASPART (NovoLOG) 100 UNIT/ML VIAL SQ SCH (22:23)
[2021-02-14] MEDS: NYSTATIN 100,000UNIT/GM CREAM 30 GM TUBE TOPICAL SCH (22:24)
[2021-02-14 22:53] LABS: HCT 32.8 % (34.0-46.0); HGB 10.2 gm/dL (11.4-16.0); Hypochromasia Marked; MCH 35.8 pg (25.0-35.0); MCHC 30.9 g/dL (31.0-37.0); MCV 115.6 fL (80.0-100.0); Platelet Count 460 k/uL (150-450); RBC 2.84 m/uL (3.80-5.40)
[2021-02-14 23:01] LABS: Macrocytosis Marked
[2021-02-15 06:12] LABS: Glucose,Whole Blood 202 mg/dL (75-99)
[2021-02-15] MEDS: SEVELAMER 800 MG TAB PO SCH ×4 (06:39→22:13)
[2021-02-15] MEDS: INSULIN ASPART (NovoLOG) 100 UNIT/ML VIAL SQ SCH ×4 (07:08→22:15)
[2021-02-15] MEDS: ALBUTEROL NEBULIZED 2.5 MG/3 ML INHALATION SCH ×4 (08:08→20:06)
--- NOTE | 2021-02-15 08:55 | P.CNPUL ---
History of Present Illness Consult date: 02/15/21 Requesting physician: Cortez Harman Reason for consult: other (Hypotension, ICU management) Chief complaint: Altered mental status History of present illness: This is a 75-year-old female patient who follows with Dr. Brooks is her primary care provider. She has a history of end-stage renal disease receiving hemodialysis on Saturday, chronic hypoxic respiratory failure on oxygen at 4 L, atrial fibrillation/flutter status post permanent pacemaker insertion, diabetes mellitus type 2, chronic hypotension, underlying cognitive impairment. Earlier this month she had sustained a fall and was in [facility] following head trauma. She had injury to her head and left wrist at that time. She resides in [facility]. She was brought here from [facility] after being taken there for altered mental status. Yesterday during dialysis she was quite hypotensive and bradycardic and dialysis was stopped. An A team was called and she was transferred to the ICU. We are seeing her today in consultation. She is awake, alert and arousable. She sta marleen she was in [facility]onism right now. Computed tomography scan of the head from [place] was reported as unremarkable. She was found to have significant left- sided pleural effusion. She is currently on 5 L nasal cannula. 0.9 normal saline at [address] angiogram of the chest ruled out pulmonary embolism. There is bilateral pleural effusions much larger on the left. White count 20.8. Hemoglobin 10.3. Sodium 143. Potassium 3.9. Creatinine 4.23. Review of Systems ROS unobtainable: due to mental status Past Medical History Past Medical History: Atrial Fibrillation, Asthma, Heart Failure, CVA/TIA, Diab etes Mellitus, Deep Vein Thrombosis (DVT), GERD/Reflux, Hyperlipidemia, Hypertension, Osteoarthritis (OA), Renal Disease Additional Past Medical History / Comment(s): TIA 2018; HEMODIALYSIS //SATURDAY 0630-given ativan prior to dialysis History of Any Multi-Drug Resistant Organisms: MRSA Date of last positivie culture/infection: 05/12/20 MDRO Source:: MRSA URINE Past Surgical History: Adenoidectomy, Appendectomy, Cholecystectomy, Pacemaker, Tonsillectomy Past Anesthesia/Blood Transfusion Reactions: No Reported Reaction Type of Cardiac Device: Permanent Pacemaker Device Placement Date:: 2016 Past Psychological History: Anxiety, Depression Smoking Status: Never smoker Past Alcohol Use History: None Reported Past Drug Use History: None Reported - Past Family History Father Family Medical History: Myocardial Infarction ([place]) Additional Family Medical History / Comment(s): RHEUMATIC FEVER Medications and Allergies Home Medications Medication Instructions Recorded Confirmed Type Ezetimibe [Zetia] 10 mg PO HS 12/22/17 02/14/21 History Ascorbic Acid [Vitamin C] 500 mg PO DAILY 08/19/18 02/14/21 History Midodrine HCl [ProAmatine] 10 mg PO TUTHSA 09/23/19 02/14/21 History Apixaban [Eliquis] 2.5 mg PO DIRECTED 05/10/20 02/14/21 History Bydureon Bcise 2mg/0.85ml 2 mg SQ WE 05/10/20 02/14/21 History Magnesium Hydroxide [Milk of 2,400 mg PO Q24H PRN 05/10/20 02/14/21 History Magnesia] Ondansetron [Zofran] 4 mg PO Q4H PRN 05/10/20 02/14/21 History Renvela Packet 0.8gm 0.8 gm PO ACHS 05/10/20 02/14/21 History Aspirin EC [Ecotrin Low Dose] 81 mg PO DIRECTED 11/22/20 02/14/21 History Insulin Glargine,Hum.rec.anlog 15 unit SQ DAILY 11/22/20 02/14/21 History [Basaglar Kwikpen U-100] Mag Hydrox/Aluminum Hyd/Simeth 10 ml PO Q4H PRN 11/22/20 02/14/21 History [Mylanta Maximum Strength Liq] Acetaminophen Tab [Tylenol] 650 mg PO TID 02/14/21 02/14/21 History Ciprofloxacin HCl [Cipro] 500 mg PO Q12H 02/14/21 02/14/21 History Cyanocobalamin (Vitamin B-12) 1,000 mcg PO DAILY 02/14/21 02/14/21 History [Vitamin B-12] Insulin Glargine,Hum.rec.anlog 15 units SQ SUMOWEFR 02/14/21 02/14/21 History [Semglee Pen] Insulin Lispro [Insulin Lispro See Protocol SQ ACHS 02/14/21 02/14/21 History Kwikpen U-100] LORazepam [Ativan] 1 mg PO HS 02/14/21 02/14/21 History LORazepam [Ativan] 1 mg PO TUTHSA 02/14/21 02/14/21 History Lactobacillus Acidophilus 1 cap PO DAILY 02/14/21 02/14/21 History [Acidophilus] Metoprolol Tartrate [Lopressor] 25 mg PO DAILY 02/14/21 02/14/21 History Nystatin 1 applic TOPICAL BID 02/14/21 02/14/21 History Renal-Melita Tab 0.8mg 1 tab PO DAILY 02/14/21 02/14/21 History Allergies Allergy/AdvReac Type Severity Reaction Status Date / Time lisinopril Allergy Itching Verified 02/14/21 13:06 Sxuzjhp-Gtr-Jew Reductase Allergy Itching Verified 02/14/21 13:06 Inhibitor Physical Exam Vitals: Vital Signs Temp Pulse Pulse Resp BP BP Pulse Ox 02/15/21 08:20 67 16 02/15/21 08:09 73 16 98 02/15/21 02:00 60 23 101/37 89 L 02/14/21 20:00 64 22 120/63 91 L 02/14/21 18:24 97.9 F 49 L 14 157/73 02/14/21 17:05 97.7 F 93 18 180/85 96 02/14/21 16:00 83 18 136/72 96 02/14/21 15:00 72 18 151/82 97 02/14/21 11:11 97.5 F L 61 18 118/41 97 Intake and Output 02/14/21 02/15/21 02/15/21 22:59 06:59 14:59 Intake Total 160 Output Total 241 0 Balance -241 160 Intake: IV 160 0.9 KVO 110 cefTRIAXone 1 gm In 50 Sodium Chloride 0.9% 50 ml @ 100 mls/hr IVPB Q24H [facility] Rx#:[id number] Output: Urine 0 Hemodialysis 241 Other: Voiding Method Bedpan Weight 91.6 kg GENERAL EXAM: Alert, oriented times one, 75-year-old female patient on 5 L nasal cannula, comfortable in no apparent distress. HEAD: Trauma to fore head with Steri-Strips in place EYES: Normal reaction of pupils, equal size. NOSE: Clear with pink turbinates. THROAT: No erythema or exudates. NECK: No masses, no JVD. CHEST: No chest wall deformity. LUNGS: Bibasilar crackles left greater than right, diminished. CVS: S1 and S2 normal with no audible murmur, irregular rhythm. ABDOMEN: No hepatosplenomegaly, normal bowel sounds, no guarding or rigidity. SPINE: No scoliosis or deformity SKIN: No rashes CENTRAL NERVOUS SYSTEM: No focal deficits, tone is normal in all 4 extremities. EXTREMITIES: Left wrist in immobilizer. There is 1+ peripheral edema. No clubbing, no cyanosis. Peripheral pulses are intact. Results - Laboratory Findings CBC and BMP: 02/14/21 Unknown 02/14/21 Unknown Abnormal lab findings: Abnormal Labs 02/14/21 02/14/21 02/14/21 14:47 17:41 18:54 WBC RBC Hgb Hct MCV MCH MCHC RDW Plt Count Neutrophils # Lymphocytes # Macrocytosis Sodium Potassium Chloride Carbon Dioxide BUN Creatinine Glucose POC Glucose (mg/dL) 186 H 201 H Alkaline Phosphatase Albumin Urine Appearance Turbid H Urine Protein 2+ H Urine Blood Moderate H Ur Leukocyte Esterase Large H Urine RBC 40 H Urine WBC >182 H Urine WBC Clumps Many H Urine Bacteria Occasional H Hyaline Casts 17 H Urine Mucus Rare H 02/14/21 02/14/21 02/14/21 22:08 22:35 22:35 WBC 22.0 H RBC 2.84 L Hgb 10.2 L Hct 32.8 L MCV 115.6 H MCH 35.8 H MCHC 30.9 L RDW 16.0 H Plt Count 460 H Neutrophils # Lymphocytes # Macrocytosis Marked A Sodium 134 L Potassium 6.0 H Chloride 97 L Carbon Dioxide 19 L BUN 58 H Creatinine 6.03 H Glucose 202 H POC Glucose (mg/dL) 240 H Alkaline Phosphatase Albumin Urine Appearance Urine Protein Urine Blood Ur Leukocyte Esterase Urine RBC Urine WBC Urine WBC Clumps Urine Bacteria Hyaline Casts Urine Mucus 02/14/21 02/14/21 02/15/21 Unknown Unknown 06:10 WBC 22.8 H RBC 2.94 L Hgb 10.3 L Hct 33.2 L MCV 113.0 H MCH 35.1 H MCHC RDW 15.9 H Plt Count 455 H Neutrophils # 21.0 H Lymphocytes # 0.6 L Macrocytosis Marked A Sodium Potassium Chloride Carbon Dioxide BUN 37 H Creatinine 4.23 H Glucose 169 H POC Glucose (mg/dL) 202 H Alkaline Phosphatase 137 H Albumin 3.4 L Urine Appearance Urine Protein Urine Blood Ur Leukocyte Esterase Urine RBC Urine WBC Urine WBC Clumps Urine Bacteria Hyaline Casts Urine Mucus - Diagnostic Findings Chest x-ray: image reviewed CT scan - chest: image reviewed Assessment and Plan Assessment: 1 Acute hypotension and bradycardia during dialysis requiring transfer to ICU 2 Acute on chronic hypoxemic respiratory failure secondary to large left pleural effusion 3 Large left pleural effusion and fluid volume overload 4 End-stage renal disease receiving hemodialysis on Saturday 5 Diabetes mellitus 6 History of chronic hypotension, on midodrine 7 Underlying cognitive impairment 8 Atrial fibrillation/flutter, anticoagulated with Eliquis, pacemaker implantation 9 Poor overall functional performance based on the above-mentioned multiple comorbidities Plan: The patient was seen and evaluated by Dr. Najera Chest x-ray, CAT scans and labs reviewed We'll request ultrasound of the left chest If significant free-flowing fluid we'll request interventional radiology for thoracentesis Hemodialysis per nephrology Could be transferred back to the regular medical floor CODE STATUS to be addressed by primary service We will continue to follow make further recommendations based on her clinical status I, the cosigning physician, performed a history & physical examination of the patient. Lungs sounds are clear the posterior bases left greater than right, diminished. Maintaining good O2 saturations in the 90s on 5 L/m per nasal cannula. I discussed the assessment and plan of care with my nurse practitioner, Tiffani Sibley. I attest to the above consultation as dictated by her. Time with Patient: Greater than 30
[2021-02-15] MEDS: CYANOCOBALAMIN 500 MCG TAB PO SCH (09:36)
[2021-02-15] MEDS: NYSTATIN 100,000UNIT/GM CREAM 30 GM TUBE TOPICAL SCH ×2 (09:36→22:14)
[2021-02-15] MEDS: ASCORBIC ACID 500 MG TAB PO SCH (09:36)
[2021-02-15] MEDS: FOLIC ACID-VIT B COMPLEX-VIT C 1 CAP PO SCH (09:36)
--- NOTE | 2021-02-15 11:50 | P.NPCON ---
History of Present Illness - Reason for Consult end stage renal disease - History of Present Illness Reason for consultation: End-stage renal disease History of present illness: Patient is a 75-year-old female seen in renal consultation for end-stage renal disease. She is maintained on hemodialysis on Saturday schedule in [place]. Patient was transferred from [facility] due to altered mental status. Patient's mentation recently has been worsening and she usually moans during the treatment outpatient. She was being treated for UTI with Cipro. Patient has a permacath and blood cultures positive for gram- positive cocci. She is currently seen was undergoing hemodialysis. Potassium level was high yesterday and is now in the normal range. Patient is laying in bed and is confused. She does not respond much to verbal commands. Blood pressures on the lower side but stable. She has not required any vasopressors. She is afebrile. Vital signs are stable. General: On nasal cannula. Lungs: Breath sounds decreased. HEART: Rate and Rhythm are regular. ABDOMEN: Soft, obese. EXTREMITITES: Trace edema. Past Medical History Past Medical History: Atrial Fibrillation, Asthma, Heart Failure, CVA/TIA, Diabetes Mellitus, Deep Vein Thrombosis (DVT), GERD/Reflux, Hyperlipidemia, Hypertension, Osteoarthritis (OA), Renal Disease Additional Past Medical History / Comment(s): TIA 2018; HEMODIALYSIS / /Saturday-given ativan prior to dialysis History of Any Multi-Drug Resistant Organisms: MRSA Date of last positivie culture/infection: 05/12/20 MDRO Source:: MRSA URINE Past Surgical History: Adenoidectomy, Appendectomy, Cholecystectomy, Pacemaker, Tonsillectomy Past Anesthesia/Blood Transfusion Reactions: No Reported Reaction Type of Cardiac Device: Permanent Pacemaker Device Placement Date:: 2016 Past Psychological History: Anxiety, Depression Smoking Status: Never smoker Past Alcohol Use History: None Reported Past Drug Use History: None Reported - Past Family History Father Family Medical History: Myocardial Infarction ([place]) Additional Family Medical History / Comment(s): RHEUMATIC FEVER Medications and Allergies Home Medications Medication Instructions Recorded Confirmed Type Ezetimibe [Zetia] 10 mg PO HS 12/22/17 02/14/21 History Ascorbic Acid [Vitamin C] 500 mg PO DAILY 08/19/18 02/14/21 History Midodrine HCl [ProAmatine] 10 mg PO TUTHSA 09/23/19 02/14/21 History Apixaban [Eliquis] 2.5 mg PO DIRECTED 05/10/20 02/14/21 History Bydureon Bcise 2mg/0.85ml 2 mg SQ WE 05/10/20 02/14/21 History Magnesium Hydroxide [Milk of 2,400 mg PO Q24H PRN 05/10/20 02/14/21 History Magnesia] Ondansetron [Zofran] 4 mg PO Q4H PRN 05/10/20 02/14/21 History Renvela Packet 0.8gm 0.8 gm PO ACHS 05/10/20 02/14/21 History Aspirin EC [Ecotrin Low Dose] 81 mg PO DIRECTED 11/22/20 02/14/21 History Insulin Glargine,Hum.rec.anlog 15 unit SQ DAILY 11/22/20 02/14/21 History [Basaglar Kwikpen U-100] Mag Hydrox/Aluminum Hyd/Simeth 10 ml PO Q4H PRN 11/22/20 02/14/21 History [Mylanta Maximum Strength Liq] Acetaminophen Tab [Tylenol] 650 mg PO TID 02/14/21 02/14/21 History Ciprofloxacin HCl [Cipro] 500 mg PO Q12H 02/14/21 02/14/21 History Cyanocobalamin (Vitamin B-12) 1,000 mcg PO DAILY 02/14/21 02/14/21 History [Vitamin B-12] Insulin Glargine,Hum.rec.anlog 15 units SQ SUMOWEFR 02/14/21 02/14/21 History [Semglee Pen] Insulin Lispro [Insulin Lispro See Protocol SQ ACHS 02/14/21 02/14/21 History Kwikpen U-100] LORazepam [Ativan] 1 mg PO HS 02/14/21 02/14/21 History LORazepam [Ativan] 1 mg PO TUTHSA 02/14/21 02/14/21 History Lactobacillus Acidophilus 1 cap PO DAILY 02/14/21 02/14/21 History [Acidophilus] Metoprolol Tartrate [Lopressor] 25 mg PO DAILY 02/14/21 02/14/21 History Nystatin 1 applic TOPICAL BID 02/14/21 02/14/21 History Renal-Melita Tab 0.8mg 1 tab PO DAILY 02/14/21 02/14/21 History Allergies Allergy/AdvReac Type Severity Reaction Status Date / Time lisinopril Allergy Itching Verified 02/14/21 13:06 [id number]-Jew-Wpj Reductase Allergy Itching Verified 02/14/21 13:06 Inhibitor Physical Exam Vitals: Vital Signs Temp Pulse Pulse Resp BP BP Pulse Ox 02/15/21 08:20 67 16 02/15/21 08:09 73 16 98 02/15/21 02:00 60 23 101/37 89 L 02/14/21 20:00 64 22 120/63 91 L 02/14/21 18:24 97.9 F 49 L 14 157/73 02/14/21 17:05 97.7 F 93 18 180/85 96 02/14/21 16:00 83 18 136/72 96 02/14/21 15:00 72 18 151/82 97 Intake and Output 02/14/21 02/15/21 02/15/21 22:59 06:59 14:59 Intake Total 160 Output Total 241 0 Balance -241 160 Intake: IV 160 0.9 KVO 110 cefTRIAXone 1 gm In 50 Sodium Chloride 0.9% 50 ml @ 100 mls/hr IVPB Q24H [facility] Rx#:[id number] Output: Urine 0 Hemodialysis 241 Other: Voiding Method Bedpan Bedpan Weight 91.6 kg 91.6 kg Results - Lab Results Most recent lab results Calcium 9.6 mg/dL (8.4-10.2) 02/14/21 Unknown 02/14/21 Unknown 02/14/21 Unknown Assessment and Plan Plan: Assessment: 1. End-stage renal disease maintained on hemodialysis on Saturday schedule via permacath. 2. Altered mental status likely from sepsis. 3. Gram-positive bacteremia with source being permacath most likely. 4. Hyperkalemia secondary to chronic kidney disease and metabolic acidosis. Resolved. 5. Anemia of chronic kidney disease. 6. Chronic kidney disease mineral bone disease maintained on Renvela. Plan: Currently seen was undergoing hemodialysis. Consult infectious disease for the bacteremia. Start vancomycin. Monitor levels. Dose to be adjusted for renal function. Will discuss with infectious disease if the dialysis catheter needs to be removed. Thank you for the consultation. I will continue to follow the patient with you during her hospital stay.
[2021-02-15 12:15] LABS: Glucose,Whole Blood 134 mg/dL (75-99)
[2021-02-15] MEDS ORDERED: VANCOMYCIN IV PER PHARMACY 1 EACH MISC MISCELLANE PRN (12:39)
--- NOTE | 2021-02-15 12:45 | US ---
EXAMINATION TYPE: US chest DATE OF EXAM: 02/15/2021 COMPARISON: NONE CLINICAL HISTORY: Left pleural effusion. left pleural effusion. technical limitations, ICU patient, u nable to sit up on her own, RN helped to sit patient forward TECHNIQUE: Targeted ultrasound of the posterior lower left hemithorax EXAM MEASUREMENTS: Left Pleural Effusion pocket size: 7.2 cm Left skin surface to fluid distance: 2.7 cm Right side NOT marked for possible thoracentesis outside the dept. Left side marked for possible thoracentesis outside the dept. Pulmonologists are able to review the images in the patient?s EMR. IMPRESSIONS: Left pleural effusion.
[2021-02-15] MEDS ORDERED: VANCOMYCIN 1,500 MG in SODIUM CHLORIDE 0.9% 250 ML IVPB ONE (14:00)
--- NOTE | 2021-02-15 14:20 | P.CRDCN ---
History of Present Illness History of present illness: HISTORY OF PRESENTING ILLNESS This is a pleasant 75-year-old female past medical history significant for persistent atrial fibrillation on Eliquis, sick sinus syndrome status post pacemaker, morbid obesity, hypertension, dyslipidemia, type 2 diabetes, non- rheumatic mitral valve insufficiency, GERD, end-stage renal disease on dialysis Saturday. Earlier this month patient has sustained a fall with head, and was at [facility]. She follows in the office with Dr. Alvarado. We have been asked to see in consultation for bradycardia event on 02/14. On 02/14/2021 evening patient became hypotensive on dialysis, dialysis was stopped. Patient apparently was bradycardic but was not on telemetry so this was not captured. Patient was transferred to ICU bed due to selective overflow. Patient was transferred from [facility] due to worsening shortness of breath and altered mental status and needing hemodialysis. Patient was diagnosed a UTI and started on IV Cipro. She also was diagnosed with a left-sided large pleural effusion. EKG at [place] revealed atrial fibrillation HR 68. Telemetry tracings indicate underlying atrial fibrillation HR 60s. No evidence of bradycardia at this time. Laboratory reviewed WBC 22.8, Humulin 10.3, platelets 455, sodium 143, potassium 3.9, BUN 37, potassium 4.2. Most recent echocardiogram 06/2019 revealed an EF of 50%, moderate concentric hypertrophy, mild to moderate RV, LA moderately dilated RA, trace aortic regurgitation, mild mitral regurgitation, moderate tricuspid regurgitation. Patient's pacemaker in. The office in September 2018 functioning normally in no acute events. Patient's home cardiac medications include midodrine 10 mg Saturday, Eliquis 2.5 mg daily, aspirin 81 mg daily, metoprolol tartrate 25 mg daily. REVIEW OF SYSTEMS At the time of my exam: Due to patient's current mental status unable to give accurate review of systems PHYSICAL EXAMINATION Blood pressure 103/58 heart rate 66 afebrile and maintaining oxygen saturation on 5 L nasal cannula CONSTITUTIONAL: No apparent distress. Lethargic HEENT: Head with trauma to foreard and bruising around bilateral eyes. No JVD. No carotid bruit. CHEST EXAMINATION: Lungs are diminished bilaterally. Crackles noted bilateral bases. HEART EXAMINATION: Irregular rate and rhythm. S1, S2 heard. Systolic murmur noted ABDOMEN: Soft, nontender. Positive bowel sounds. EXTREMITIES: 2+ peripheral pulses, no lower extremity edema, bilateral arm edema present, and no calf tenderness. NEUROLOGIC EXAMINATION: Patient is lethargic, does awake with verbal stimuli, oriented to person only ASSESSMENT Altered mental status Acute on chronic hypoxic with history failure Large left pleural effusion End-stage renal disease on hemodialysis Type 2 diabetes History of hypertension on midodrine Episode of hypotension during dialysis Permanent atrial fibrillation on Eliquis History of Recent head injury early this month PLAN -Obtain Echocardiogram -Interrogate patient's device -Eliquis is currently on hold due to possible thoracentesis -Pulmonary following, appreciate recs -Nephrology following appreciate recs -Further recommendations based on clinical course Nurse Practitioner note has been reviewed, I agree with a documented findings and plan of care. Patient was seen and examined. Past Medical History Past Medical History: Atrial Fibrillation, Asthma, Heart Failure, CVA/TIA, Diabetes Mellitus, Deep Vein Thrombosis (DVT), GERD/Reflux, Hyperlipidemia, Hypertension, Osteoarthritis (OA), Renal Disease Additional Past Medical History / Comment(s): TIA 2018; HEMODIALYSIS //Saturday-given ativan prior to dialysis History of Any Multi-Drug Resistant Organisms: MRSA Date of last positivie culture/infection: 05/12/20 MDRO Source:: MRSA URINE Past Surgical History: Adenoidectomy, Appendectomy, Cholecystectomy, Pacemaker, Tonsillectomy Past Anesthesia/Blood Transfusion Reactions: No Reported Reaction Type of Cardiac Device: Permanent Pacemaker Device Placement Date:: 2016 Past Psychological History: Anxiety, Depression Smoking Status: Never smoker Past Alcohol Use History: None Reported Past Drug Use History: None Reported - Past Family History Father Family Medical History: Myocardial Infarction ([place]) Additional Family Medical History / Comment(s): RHEUMATIC FEVER Medications and Allergies Home Medications Medication Instructions Recorded Confirmed Type Ezetimibe [Zetia] 10 mg PO HS 12/22/17 02/14/21 History Ascorbic Acid [Vitamin C] 500 mg PO DAILY 08/19/18 02/14/21 History Midodrine HCl [ProAmatine] 10 mg PO TUTHSA 09/23/19 02/14/21 History Apixaban [Eliquis] 2.5 mg PO DIRECTED 05/10/20 02/15/21 History Bydureon Bcise 2mg/0.85ml 2 mg SQ WE 05/10/20 02/14/21 History Magnesium Hydroxide [Milk of 2,400 mg PO Q24H PRN 05/10/20 02/14/21 History Magnesia] Ondansetron [Zofran] 4 mg PO Q4H PRN 05/10/20 02/14/21 History Renvela Packet 0.8gm 0.8 gm PO ACHS 05/10/20 02/14/21 History Aspirin EC [Ecotrin Low Dose] 81 mg PO DIRECTED 11/22/20 02/15/21 History Insulin Glargine,Hum.rec.anlog 15 unit SQ DAILY 11/22/20 02/14/21 History [Basaglar Kwikpen U-100] Mag Hydrox/Aluminum Hyd/Simeth 10 ml PO Q4H PRN 11/22/20 02/14/21 History [Mylanta Maximum Strength Liq] Acetaminophen Tab [Tylenol] 650 mg PO TID 02/14/21 02/14/21 History Ciprofloxacin HCl [Cipro] 500 mg PO Q12H 02/14/21 02/14/21 History Cyanocobalamin (Vitamin B-12) 1,000 mcg PO DAILY 02/14/21 02/14/21 History [Vitamin B-12] Insulin Glargine,Hum.rec.anlog 15 units SQ SUMOWEFR 02/14/21 02/14/21 History [Semglee Pen] Insulin Lispro [Insulin Lispro See Protocol SQ ACHS 02/14/21 02/14/21 History Kwikpen U-100] LORazepam [Ativan] 1 mg PO HS 02/14/21 02/14/21 History LORazepam [Ativan] 1 mg PO TUTHSA 02/14/21 02/14/21 History Lactobacillus Acidophilus 1 cap PO DAILY 02/14/21 02/14/21 History [Acidophilus] Metoprolol Tartrate [Lopressor] 25 mg PO DAILY 02/14/21 02/14/21 History Nystatin 1 applic TOPICAL BID 02/14/21 02/14/21 History Renal-Melita Tab 0.8mg 1 tab PO DAILY 02/14/21 02/14/21 History Allergies Allergy/AdvReac Type Severity Reaction Status Date / Time lisinopril Allergy Itching Verified 02/14/21 13:06 Pjhqihw-Hxy-Wbs Reductase Allergy Itching Verified 02/14/21 13:06 Inhibitor Physical Exam Vitals: Vital Signs Temp Pulse Pulse Resp BP BP Pulse Ox 02/15/21 13:36 97.3 F L 74 15 103/58 02/15/21 12:10 66 16 02/15/21 12:00 67 17 95/28 97 02/15/21 11:55 67 16 02/15/21 10:00 63 16 97/53 92 L 02/15/21 08:20 67 16 02/15/21 08:09 73 16 98 02/15/21 08:00 97.3 F L 74 14 104/38 91 L 02/15/21 02:00 60 23 101/37 89 L 02/14/21 20:00 64 22 120/63 91 L 02/14/21 18:24 97.9 F 49 L 14 157/73 02/14/21 17:05 97.7 F 93 18 180/85 96 02/14/21 16:00 83 18 136/72 96 02/14/21 15:00 72 18 151/82 97 Intake and Output 02/14/21 02/15/21 02/15/21 22:59 06:59 14:59 Intake Total 160 Output Total 241 0 500 Balance -241 160 -500 Intake: IV 160 0.9 KVO 110 cefTRIAXone 1 gm In 50 Sodium Chloride 0.9% 50 ml @ 100 mls/hr IVPB Q24H [facility] Rx#:[id number] Output: Urine 0 Hemodialysis 241 500 Other: Voiding Method Bedpan Bedpan Weight 91.6 kg 91.6 kg Results 02/14/21 Unknown 02/14/21 Unknown Cardiac Enzymes 02/14/21 Range/Units Unknown AST 15 (14-36) U/L CBC 02/14/21 02/14/21 Range/Units 22:35 Unknown WBC 22.0 H 22.8 H (3.8-10.6) k/uL RBC 2.84 L 2.94 L (3.80-5.40) m/uL Hgb 10.2 L 10.3 L (11.4-16.0) gm/dL Hct 32.8 L 33.2 L (34.0-46.0) % Plt Count 460 H 455 H (150-450) k/uL Comprehensive Metabolic Panel 02/14/21 02/14/21 Range/Units 22:35 Unknown Sodium 134 L 143 (137-145) mmol/L Potassium 6.0 H 3.9 (3.5-5.1) mmol/L Chloride 97 L 101 (98-107) mmol/L Carbon Dioxide 19 L 27 (22-30) mmol/L BUN 58 H 37 H (7-17) mg/dL Creatinine 6.03 H 4.23 H (0.52-1.04) mg/dL Glucose 202 H 169 H (74-99) mg/dL Calcium 10.0 9.6 (8.4-10.2) mg/dL AST 15 (14-36) U/L ALT 9 (4-34) U/L Alkaline Phosphatase 137 H (38-126) U/L Total Protein 6.6 (6.3-8.2) g/dL Albumin 3.4 L (3.5-5.0) g/dL Current Medications Generic Name Dose Route Start Last Admin Trade Name Freq PRN Reason Stop Dose Admin Acetaminophen 650 mg 02/14/21 11:33 Acetaminophen Tab 325 Mg Tab PO Q6HR PRN Mild Pain or Fever > 100.5 Al Hydroxide/Mg Hydroxide 10 ml 02/14/21 21:01 Mag Hydrox/Al Hydrox/Simeth 30 Ml Cup PO Q4H PRN Indigestion Albuterol Sulfate 2.5 mg 02/14/21 21:06 02/15/21 11:55 Albuterol Nebulized 2.5 Mg/3 Ml INHALATION 2.5 mg RT-QID [facility] Administration Ascorbic Acid 500 mg 02/15/21 09:00 02/15/21 09:36 Ascorbic Acid 500 Mg Tab PO Not Given DAILY [facility] Calcium Carbonate/Glycine 1,000 mg 02/14/21 12:10 Calcium Carbonate 500 Mg Chewable PO Q4HR PRN Dyspepsia Cyanocobalamin 1,000 mcg 02/15/21 09:00 02/15/21 09:36 Cyanocobalamin 500 Mcg Tab PO Not Given DAILY [facility] Ezetimibe 10 mg 02/14/21 21:15 02/14/21 22:05 Ezetimibe 10 Mg Tab PO Not Given HS GILL Ceftriaxone Sodium 1 gm/ 50 mls @ 100 mls/hr 02/14/21 22:00 02/14/21 22:24 Sodium Chloride IVPB 100 mls/hr Q24H [facility] Administration Vancomycin HCl 1,500 mg/ 250 mls @ 125 mls/hr 02/15/21 14:00 02/15/21 13:26 Sodium Chloride IVPB 02/15/21 15:59 125 mls/hr ONCE ONE Administration Insulin Aspart 0 unit 02/14/21 21:15 02/15/21 12:20 Insulin Aspart (Novolog) 100 Unit/Ml Vial SQ 1 unit ACHS [facility] Administration Protocol Lactulose 20 gm 02/14/21 12:10 Lactulose 20 Gm/30 Ml Cup PO DAILY PRN Constipation Lorazepam 1 mg 02/14/21 21:15 02/14/21 22:05 Lorazepam 1 Mg Tab PO Not Given HS IGLL Magnesium Hydroxide 2,400 mg 02/14/21 21:01 Magnesium Hydroxide 2,400 Mg/10 Ml Cup PO Q24H PRN Constipation Melatonin 3 mg 02/14/21 12:10 Melatonin 3 Mg Tablet PO HS PRN Insomnia Midodrine 10 mg 02/14/21 21:30 02/14/21 22:05 Midodrine 5 Mg Tab PO Not Given TuThSa@0900 [facility] Miscellaneous Information 1 each 02/14/21 18:02 Rx Info: Iv Contrast Was Given 1 Each Mis MISCELLANE 02/16/21 18:05 DAILY PRN Per Protocol Miscellaneous Information 1 each 02/15/21 12:39 Vancomycin Iv Per Pharmacy 1 Each [facility] MISCELLANE DIRECTED PRN Per Protocol Protocol Multivit/Ca Carb/B Cmplx/FA/Prenat 1 each 02/15/21 09:00 02/15/21 09:36 Folic Acid-Vit B Complex-Vit C 1 Cap PO Not Given DAILY [facility] Naloxone HCl 0.2 mg 02/14/21 11:33 Naloxone 0.4 Mg/Ml 1 Ml Vial IV Q2M PRN Opioid Reversal Nystatin 1 applic 02/14/21 21:30 02/15/21 09:36 Nystatin 100,000unit/Gm Cream 30 Gm Tube TOPICAL Not Given BID [facility] Protocol Ondansetron HCl 4 mg 02/14/21 11:33 Ondansetron 4 Mg/2 Ml Vial IVP Q8HR PRN Nausea And Vomiting Sevelamer Carbonate 800 mg 02/15/21 07:30 02/15/21 13:26 Sevelamer 800 Mg Tab PO Not Given ACHS [facility] Intake and Output 02/14/21 02/15/21 02/15/21 22:59 06:59 14:59 Intake Total 160 Output Total 241 0 500 Balance -241 160 -500 Intake: IV 160 0.9 KVO 110 cefTRIAXone 1 gm In 50 Sodium Chloride 0.9% 50 ml @ 100 mls/hr IVPB Q24H [facility] Rx#:[id number] Output: Urine 0 Hemodialysis 241 500 Other: Voiding Method Bedpan Bedpan Weight 91.6 kg 91.6 kg Patient Weight 02/16/21 06:59 Weight 91.6 kg 02/14/21 Unknown 02/14/21 Unknown
--- NOTE | 2021-02-15 16:28 | P.PN ---
Progress Note - Text Progress Note Date: 02/15/21 Chief Complaint: Short of breath History of presenting complaint: This is a 75-year-old patient who follows with Dr. Jp Brooks. Patient is resident of [facility] from where she was transferred to [facility]. Chronic stable medical conditions include CHF, end-stage kidney disease on hemodialysis TTS, atrial fibrillation, permanent pacemaker, GERD. COPD. On 4 L of oxygen at baseline. Patient just recently was at [facility] following a head trauma. Laying down which she was carried out. At her baseline patient is AO 2. Patient was transferred to [facility] as patient had become a bit confused. Normally on 4 L of oxygen she is oxygen is a 90% but dropped down to 80s. Computed tomography scan of the head was unremarkable. Chest x-rays shown pleural effusion. Also patient was started on ciprofloxacin for recent UTI. I saw the patient in the ER this afternoon. She does not want to be here she says. Patient not a good historian. Nephrology and pulmonary were consulted. Patient is short of breath. Slight cough. Not sure about fever. February 15: Yesterday evening during hemodialysis patient had an episode of hypotension bradycardia.A team was called out. There was a slight change in mental status. Recovered. Patient is moved to the ICU. Patient's significant other is in the room. Today. Patient on clear liquids. Ultrasound marking for the left pleural effusion has been done. Consultation to cardiology, neurology's been done. EEG ordered. Blood cultures growing gram- positive cocci in cultures. Given vancomycin Review of systems: Was done for constitutional, cardiovascular, GI, pulmonary. relevant finding as above Active Medications Acetaminophen (Acetaminophen Tab 325 Mg Tab) 650 mg PO Q6HR PRN PRN Reason: Mild Pain or Fever > 100.5 Al Hydroxide/Mg Hydroxide (Mag Hydrox/Al Hydrox/Simeth 30 Ml Cup) 10 ml PO Q4H PRN PRN Reason: Indigestion Albuterol Sulfate (Albuterol Nebulized 2.5 Mg/3 Ml) 2.5 mg INHALATION RT-QID [facility] Last Admin: 02/15/21 15:56 Dose: 2.5 mg Documented by: Ascorbic Acid (Ascorbic Acid 500 Mg Tab) 500 mg PO DAILY [facility] Last Admin: 02/15/21 09:36 Dose: Not Given Documented by: Calcium Carbonate/Glycine (Calcium Carbonate 500 Mg Chewable) 1,000 mg PO Q4HR PRN PRN Reason: Dyspepsia Cyanocobalamin (Cyanocobalamin 500 Mcg Tab) 1,000 mcg PO DAILY [facility] Last Admin: 02/15/21 09:36 Dose: Not Given Documented by: Ezetimibe (Ezetimibe 10 Mg Tab) 10 mg PO HS [facility] Last Admin: 02/14/21 22:05 Dose: Not Given Documented by: Ceftriaxone Sodium 1 gm/ (Sodium Chloride) 50 mls @ 100 mls/hr IVPB Q24H [facility] Last Admin: 02/14/21 22:24 Dose: 100 mls/hr Documented by: Insulin Aspart (Insulin Aspart (Novolog) 100 Unit/Ml Vial) 0 unit SQ ACHS [facility]; Protocol Last Admin: 02/15/21 12:20 Dose: 1 unit Documented by: Lactulose (Lactulose 20 Gm/30 Ml Cup) 20 gm PO DAILY PRN PRN Reason: Constipation Lorazepam (Lorazepam 1 Mg Tab) 1 mg PO HS [facility] Last Admin: 02/14/21 22:05 Dose: Not Given Documented by: Magnesium Hydroxide (Magnesium Hydroxide 2,400 Mg/10 Ml Cup) 2,400 mg PO Q24H PRN PRN Reason: Constipation Melatonin (Melatonin 3 Mg Tablet) 3 mg PO HS PRN PRN Reason: Insomnia Midodrine (Midodrine 5 Mg Tab) 10 mg PO TuThSa@0900 [facility] Last Admin: 02/14/21 22:05 Dose: Not Given Documented by: Miscellaneous Information (Rx Info: Iv Contrast Was Given 1 Each Misc) 1 each MISCELLANE DAILY PRN PRN Reason: Per Protocol Stop: 02/16/21 18:05 Miscellaneous Information (Vancomycin Iv Per Pharmacy 1 Each Misc) 1 each MISCELLANE DIRECTED PRN; Protocol PRN Reason: Per Protocol Multivit/Ca Carb/B Cmplx/FA/Prenat (Folic Acid-Vit B Complex-Vit C 1 Cap) 1 each PO DAILY [facility] Last Admin: 02/15/21 09:36 Dose: Not Given Documented by: Naloxone HCl (Naloxone 0.4 Mg/Ml 1 Ml Vial) 0.2 mg IV Q2M PRN PRN Reason: Opioid Reversal Nystatin (Nystatin 100,000unit/Gm Cream 30 Gm Tube) 1 applic TOPICAL BID [facility]; Protocol Last Admin: 02/15/21 09:36 Dose: Not Given Documented by: Ondansetron HCl (Ondansetron 4 Mg/2 Ml Vial) 4 mg IVP Q8HR PRN PRN Reason: Nausea And Vomiting Sevelamer Carbonate (Sevelamer 800 Mg Tab) 800 mg PO ACHS [facility] Last Admin: 02/15/21 13:26 Dose: Not Given Documented by: Past medical history to include: Atrial fibrillation, asthma, CHF, diabetes, DVT, GERD, hypertension, hyperlipidemia, osteomyelitis discitis, end-stage kidney disease with hemodialysis, TIA, permanent pacemaker, more disorder. Oxygen 4-4 L Social history: No history of smoking or alcohol. Currently at [facility] Family history: Rheumatic fever, [place] Physical examination: VITAL SIGNS: 97.3, 62, 15, 103/58, 98% on 5 L GENERAL: BMI 36.5, reclining in bed, slightly short of breath awake, EYES: Pupils equal. Conjunctiva normal. HEENT: External appearance of nose and ears normal, oral cavity grossly normal. NECK: JVD unable to assess; masses not palpable. HEART: First and second heart sounds are normal; some edema. LUNGS:[ Respiratory rate increased, diminished breath sounds. ABDOMEN: Soft, nontender, liver spleen not palpable, no masses palpable. PSYCH: Answering simple questions INVESTIGATIONS, reviewed in the clinical context: February 15: WBC 22.8 hemoglobin 10.3 potassium 3.9 BUN 37 creatinine 4.23 Blood culture [February 14]: Gram-positive cocci in clusters [Labs from [facility]] WBC 20.4 hemoglobin 10.2 platelets 453 sodium 133 potassium 5.5 BUN 56 crit and 6.7 ALT, AST both normal bilirubin 0.5 albumin 3.7 Troponin I 0.015 Computed tomography scan of the head reportedly negative EKG tracing personally reviewed by me-atrial flutter fibrillation with intraventricular block pattern Chest x-ray film personally reviewed by me-cardiomegaly, trachea pole to the right, pleural effusion Assessment and plan: -Acute hypoxic respiratory failure from large pleural effusion Could be from inadequate hemodialysis and/or CHF. 4 aggressive hemodialysis and possible thoracentesis -Chronic hypoxic respiratory failure on 4 L of oxygen -Bacteremia with gram-positive cocci in clusters Vancomycin -End-stage kidney disease on hemodialysis, TTS Hemodialysis today -Persistent atrial flutter fibrillation Continue eliquis -Acute UTI with cystitis IV ceftriaxone. Culture pending -Diabetes mellitus type 2, chronically on insulin Follow Accu-Cheks. 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 EEG. -Underlying cognitive impairment -Permanent pacemaker Patient in the ICU. Spoke to the patient's significant other at the bedside. Consult cardiology for the bradycardia she had yesterday and also consult neurology with EEG. Ultrasound marking for thoracentesis has been done. Continue other medications. Patient received 1 dose of vancomycin. ID consulted
[2021-02-15 16:44] LABS: Hepatitis B Surface AB- Quant <3.5 mIU/mL; Hepatitis B Surface Antibody Non-Reactive (Non-Reactive); Hepatitis B Surface Antigen Non-Reactive (Non-Reactive)
[2021-02-15 16:51] LABS: Glucose,Whole Blood 167 mg/dL (75-99)
--- NOTE | 2021-02-15 17:35 | ECHOF ---
Referral Reason:LV function MEASUREMENTS -------- HEIGHT: 160.0 cm WEIGHT: 93.0 kg BP: RVIDd: 2.8 cm (< 3.3) IVSd: 1.2 cm (0.6 - 1.1) LVIDd: 3.8 cm (3.9 - 5.3) LVPWd: 1.5 cm (0.6 - 1.1) IVSs: 1.4 cm LVIDs: 3.1 cm LVPWs: 1.5 cm LAESV Index (A-L): 34.22 ml/m FINDINGS -------- Atrial fibrillation. Paced rhythm. This was a technically adequate study. The left ventricular size is normal. Left ventricular wall thickness is normal. Overall left vent ricular systolic function is low-normal with, an EF between 50 - 55 %. The right ventricle is normal in size. LA is moderately dilated 34-39 ml/m2 The right atrial size is normal. There is mild aortic valve sclerosis. There is no evidence of aortic regurgitation. Mild mitral regurgitation is present. No regurgitation noted There is no pulmonic regurgitation present. There is a large, generalized pericardial effusion present. CONCLUSIONS -------- 1. The left ventricular size is normal. 2. Left ventricular wall thickness is normal. 3. Overall left ventricular systolic function is low-normal with, an EF between 50 - 55 %. 4. The right ventricle is normal in size. 5. LA is moderately dilated 34-39 ml/m2 6. The right atrial size is normal. 7. There is mild aortic valve sclerosis. 8. Mild mitral regurgitation is present. 9. No regurgitation noted 10. There is a large, generalized pericardial effusion present. PRODUCT DEMONSTRATOR: Amy Jaqeuz RDCS
[2021-02-15 22:06] LABS: Glucose,Whole Blood 255 mg/dL (75-99)
--- NOTE | 2021-02-15 22:07 | P.CONS ---
History of Present Illness - Reason for Consult Consult date: 02/15/21 Bacteremia Requesting physician: Tigre Helton - Chief Complaint mental status changes x 1 day - History of Present Illness Patient is a 75-year-old female with a past medical history significant for COPD end-stage renal disease on hemodialysis Saturday through right subclavian permacatheter patient was brought into the hospital for evaluation of mental status changes and needing hemodialysis apparently patient was recently admitted at [place] after head injury earlier this month and the patient not acting herself patient was treated with the cefepime and vancomycin and subsequently has been transferred to [facility] for further evaluation patient on presenting to the hospital was afebrile and no fever has been recorded subsequently patient is lethargic though arousable and to answer some simple question patient denies having any headache chest pain or shortness of breath or cough no abdominal pain and no diarrhea has been reported on admission to the hospital but did have white count of 22,000 is slightly up today the results are normal patient blood culture came back positive with gram-positive cocci that has prompted this infectious disease consultation patient did have a positive UA and our mention the patient is making good amount of urine patient did have a chest x-ray patchy airspace disease bilaterally with large left pleural effusion also have a CT angiogram of the chest that was negative for PE bilateral pleural effusion much larger on the left side and echocardiogram was done no vegetation reported, Review of Systems Positive point has been mentioned in the HPI rest of the systems are negative Past Medical History Past Medical History: Atrial Fibrillation, Asthma, Heart Failure, CVA/TIA, Diabetes Mellitus, Deep Vein Thrombosis (DVT), GERD/Reflux, Hyperlipidemia, Hypertension, Osteoarthritis (OA), Renal Disease Additional Past Medical History / Comment(s): TIA 2018; HEMODIALYSIS //SATURDAY 0630-given ativan prior to dialysis History of Any Multi-Drug Resistant Organisms: MRSA Year Discovered:: 05/12/20 MDRO Source:: MRSA URINE Past Surgical History: Adenoidectomy, Appendectomy, Cholecystectomy, Pacemaker, Tonsillectomy Past Anesthesia/Blood Transfusion Reactions: No Reported Reaction Type of Cardiac Device: Permanent Pacemaker Device Placement Date:: 2016 Past Psychological History: Anxiety, Depression Smoking Status: Never smoker Past Alcohol Use History: None Reported Past Drug Use History: None Reported - Past Family History Father Family Medical History: Myocardial Infarction ([place]) Additional Family Medical History / Comment(s): RHEUMATIC FEVER Medications and Allergies Home Medications Medication Instructions Recorded Confirmed Type Ezetimibe [Zetia] 10 mg PO HS 12/22/17 02/14/21 History Ascorbic Acid [Vitamin C] 500 mg PO DAILY 08/19/18 02/14/21 History Midodrine HCl [ProAmatine] 10 mg PO TUTHSA 09/23/19 02/14/21 History Apixaban [Eliquis] 2.5 mg PO DIRECTED 05/10/20 02/15/21 History Bydureon Bcise 2mg/0.85ml 2 mg SQ WE 05/10/20 02/14/21 History Magnesium Hydroxide [Milk of 2,400 mg PO Q24H PRN 05/10/20 02/14/21 History Magnesia] Ondansetron [Zofran] 4 mg PO Q4H PRN 05/10/20 02/14/21 History Renvela Packet 0.8gm 0.8 gm PO ACHS 05/10/20 02/14/21 History Aspirin EC [Ecotrin Low Dose] 81 mg PO DIRECTED 11/22/20 02/15/21 History Insulin Glargine,Hum.rec.anlog 15 unit SQ DAILY 11/22/20 02/14/21 History [Basaglar Kwikpen U-100] Mag Hydrox/Aluminum Hyd/Simeth 10 ml PO Q4H PRN 11/22/20 02/14/21 History [Mylanta Maximum Strength Liq] Acetaminophen Tab [Tylenol] 650 mg PO TID 02/14/21 02/14/21 History Ciprofloxacin HCl [Cipro] 500 mg PO Q12H 02/14/21 02/14/21 History Cyanocobalamin (Vitamin B-12) 1,000 mcg PO DAILY 02/14/21 02/14/21 History [Vitamin B-12] Insulin Glargine,Hum.rec.anlog 15 units SQ SUMOWEFR 02/14/21 02/14/21 History [Semglee Pen] Insulin Lispro [Insulin Lispro See Protocol SQ ACHS 02/14/21 02/14/21 History Kwikpen U-100] LORazepam [Ativan] 1 mg PO HS 02/14/21 02/14/21 History LORazepam [Ativan] 1 mg PO TUTHSA 02/14/21 02/14/21 History Lactobacillus Acidophilus 1 cap PO DAILY 02/14/21 02/14/21 History [Acidophilus] Metoprolol Tartrate [Lopressor] 25 mg PO DAILY 02/14/21 02/14/21 History Nystatin 1 applic TOPICAL BID 02/14/21 02/14/21 History Renal-Melita Tab 0.8mg 1 tab PO DAILY 02/14/21 02/14/21 History Allergies Allergy/AdvReac Type Severity Reaction Status Date / Time lisinopril Allergy Itching Verified 02/14/21 13:06 Nzayghs-Sre-Eek Reductase Allergy Itching Verified 02/14/21 13:06 Inhibitor Physical Exam Vitals: Vital Signs Temp Pulse Pulse Resp BP BP Pulse Ox 02/15/21 16:08 60 02/15/21 16:00 59 L 18 97/67 98 02/15/21 15:57 62 02/15/21 13:36 97.3 F L 74 15 103/58 02/15/21 12:10 66 16 02/15/21 12:00 67 17 95/28 97 02/15/21 11:55 67 16 02/15/21 10:00 63 16 97/53 92 L 02/15/21 08:20 67 16 02/15/21 08:09 73 16 98 02/15/21 08:00 97.3 F L 74 14 104/38 91 L 02/15/21 02:00 60 23 101/37 89 L 02/14/21 20:00 64 22 120/63 91 L 02/14/21 18:24 97.9 F 49 L 14 157/73 02/14/21 17:05 97.7 F 93 18 180/85 96 Intake and Output 02/15/21 02/15/21 02/15/21 06:59 14:59 22:59 Intake Total 160 530 Output Total 0 500 Balance 160 30 Intake: IV 160 80 0.9 KVO 110 80 cefTRIAXone 1 gm In 50 Sodium Chloride 0.9% 50 ml @ 100 mls/hr IVPB Q24H [facility] Rx#:[id number] Intake, IV Titration 250 Amount Vancomycin 1,500 mg In 250 Sodium Chloride 0.9% 250 ml @ 125 mls/hr IVPB ONCE ONE Rx#:[id number] Oral 200 Output: Urine 0 Hemodialysis 500 Other: Voiding Method Bedpan # Voids 1 Weight 91.6 kg 91.6 kg GENERAL DESCRIPTION: Elderly female lying in bed, no distress. No tachypnea or accessory muscle of respiration use. HEENT: Shows Pallor , no scleral icterus. Oral mucous membrane is dry. No pharyngeal erythema or thrush NECK: Trachea central, no thyromegaly. LUNGS: Unlabored breathing. Decreased breath sounds at bases. No wheeze or crackle. HEART: S1, S2, regular rate and rhythm. No loud murmur ABDOMEN: Soft, no tenderness , guarding or rigidity, no organomegaly EXTREMITIES: No edema of feet. SKIN: No rash, no masses palpable. NEUROLOGICAL: The patient is awake, alert, oriented x3, mood and affect normal. Results CBC & Chem 7: 02/14/21 Unknown 02/14/21 Unknown Labs: Abnormal Lab Results - Last 24 Hours (Table) 02/14/21 02/14/21 02/14/21 Range/Units 17:41 18:54 22:08 WBC (3.8-10.6) k/uL RBC (3.80-5.40) m/uL Hgb (11.4-16.0) gm/dL Hct (34.0-46.0) % MCV (80.0-100.0) fL MCH (25.0-35.0) pg MCHC (31.0-37.0) g/dL RDW (11.5-15.5) % Plt Count (150-450) k/uL Neutrophils # (1.3-7.7) k/uL Lymphocytes # (1.0-4.8) k/uL Macrocytosis Sodium (137-145) mmol/L Potassium (3.5-5.1) mmol/L Chloride (98-107) mmol/L Carbon Dioxide (22-30) mmol/L BUN (7-17) mg/dL Creatinine (0.52-1.04) mg/dL Glucose (74-99) mg/dL POC Glucose (mg/dL) 186 H 201 H 240 H (75-99) mg/dL Alkaline Phosphatase (38-126) U/L Albumin (3.5-5.0) g/dL 02/14/21 02/14/21 02/14/21 Range/Units 22:35 22:35 Unknown WBC 22.0 H 22.8 H (3.8-10.6) k/uL RBC 2.84 L 2.94 L (3.80-5.40) m/uL Hgb 10.2 L 10.3 L (11.4-16.0) gm/dL Hct 32.8 L 33.2 L (34.0-46.0) % MCV 115.6 H 113.0 H (80.0-100.0) fL MCH 35.8 H 35.1 H (25.0-35.0) pg MCHC 30.9 L (31.0-37.0) g/dL RDW 16.0 H 15.9 H (11.5-15.5) % Plt Count 460 H 455 H (150-450) k/uL Neutrophils # 21.0 H (1.3-7.7) k/uL Lymphocytes # 0.6 L (1.0-4.8) k/uL Macrocytosis Marked A Marked A Sodium 134 L (137-145) mmol/L Potassium 6.0 H (3.5-5.1) mmol/L Chloride 97 L (98-107) mmol/L Carbon Dioxide 19 L (22-30) mmol/L BUN 58 H (7-17) mg/dL Creatinine 6.03 H (0.52-1.04) mg/dL Glucose 202 H (74-99) mg/dL POC Glucose (mg/dL) (75-99) mg/dL Alkaline Phosphatase (38-126) U/L Albumin (3.5-5.0) g/dL 02/14/21 02/15/21 02/15/21 Range/Units Unknown 06:10 12:13 WBC (3.8-10.6) k/uL RBC (3.80-5.40) m/uL Hgb (11.4-16.0) gm/dL Hct (34.0-46.0) % MCV (80.0-100.0) fL MCH (25.0-35.0) pg MCHC (31.0-37.0) g/dL RDW (11.5-15.5) % Plt Count (150-450) k/uL Neutrophils # (1.3-7.7) k/uL Lymphocytes # (1.0-4.8) k/uL Macrocytosis Sodium (137-145) mmol/L Potassium (3.5-5.1) mmol/L Chloride (98-107) mmol/L Carbon Dioxide (22-30) mmol/L BUN 37 H (7-17) mg/dL Creatinine 4.23 H (0.52-1.04) mg/dL Glucose 169 H (74-99) mg/dL POC Glucose (mg/dL) 202 H 134 H (75-99) mg/dL Alkaline Phosphatase 137 H (38-126) U/L Albumin 3.4 L (3.5-5.0) g/dL 02/15/21 Range/Units 16:49 WBC (3.8-10.6) k/uL RBC (3.80-5.40) m/uL Hgb (11.4-16.0) gm/dL Hct (34.0-46.0) % MCV (80.0-100.0) fL MCH (25.0-35.0) pg MCHC (31.0-37.0) g/dL RDW (11.5-15.5) % Plt Count (150-450) k/uL Neutrophils # (1.3-7.7) k/uL Lymphocytes # (1.0-4.8) k/uL Macrocytosis Sodium (137-145) mmol/L Potassium (3.5-5.1) mmol/L Chloride (98-107) mmol/L Carbon Dioxide (22-30) mmol/L BUN (7-17) mg/dL Creatinine (0.52-1.04) mg/dL Glucose (74-99) mg/dL POC Glucose (mg/dL) 167 H (75-99) mg/dL Alkaline Phosphatase (38-126) U/L Albumin (3.5-5.0) g/dL Microbiology - Last 24 Hours (Table) 02/14/21 18:30 Blood Culture Gram Stain - Preliminary Blood 02/14/21 14:47 Urine Culture - Preliminary Urine,Clean Catch Assessment and Plan Assessment: 1-patient with gram-positive bacteremia in this patient admitted to hospital for mental status changes patient did not have any fever however did have elevated white count patient did have a permacatheter for dialysis and could be the likely source of this infection patient also have significant pleural effusion especially on the left side underlying pneumonia less but not entirely excluded 2-positive urine in this patient who is dialysis dependent questionable value of this UA and UTI (1) Gram-positive bacteremia Current Visit: Yes Status: Acute Code(s): R78.81 - BACTEREMIA SNOMED Code(s): 533928501350 Plan: 1-blood cultures will be repeated from the catheter tomorrow with our dialysis this was discussed with the patient RN 2-vancomycin pharmacy to dose her with a target trough of 15 while watching her kidney function and Vanco trough closely. We will follow on clinical condition and cultures to further adjust medication if needed Thank you for this consultation we will follow the patient along with you Time with Patient: Greater than 30
[2021-02-15] MEDS: LORazepam 1 MG TAB PO SCH (22:12)
[2021-02-15] MEDS: EZETIMIBE 10 MG TAB PO SCH (22:13)
[2021-02-16 07:06] LABS: Glucose,Whole Blood 169 mg/dL (75-99)
[2021-02-16] MEDS: ALBUTEROL NEBULIZED 2.5 MG/3 ML INHALATION SCH ×4 (08:38→20:57)
--- NOTE | 2021-02-16 08:58 | P.PN ---
Subjective Patient is seen in follow-up for end-stage renal disease. She is maintained on hemodialysis on Saturday schedule. Blood culture positive for enterococcus facialis. She is on IV antibiotics. Patient has no active complaints however she is not a reliable historian. Vital signs are stable. General: The patient appeared well nourished and normally developed. HEENT: Head exam is unremarkable. On nasal cannula. LUNGS: Breath sounds decreased. HEART: Rate and Rhythm are regular. ABDOMEN: Soft, no distention. EXTREMITITES: No edema. Objective - Vital Signs Vital signs: Vital Signs Temp 97 F L 02/16/21 00:00 Pulse 60 02/16/21 08:47 Resp 19 02/16/21 04:00 BP 92/32 02/16/21 04:00 Pulse Ox 95 02/16/21 04:00 Intake & Output 02/15/21 02/16/21 02/16/21 18:59 06:59 18:59 Intake Total 530 210 Output Total 500 Balance 30 210 Weight 91.6 kg 91.9 kg Intake: IV 80 210 0.9 KVO 80 160 cefTRIAXone 1 gm In 50 Sodium Chloride 0.9% 50 ml @ 100 mls/hr IVPB Q24H [facility] Rx#:[id number] Intake, IV Titration 250 Amount Vancomycin 1,500 mg In 250 Sodium Chloride 0.9% 250 ml @ 125 mls/hr IVPB ONCE ONE Rx#:[id number] Oral 200 Output: Hemodialysis 500 Other: Voiding Method Bedpan Bedpan # Voids 1 1 - Labs CBC & Chem 7: 02/14/21 Unknown 02/14/21 Unknown Labs: Abnormal Lab Results - Last 24 Hours (Table) 02/15/21 02/15/21 02/15/21 Range/Units 12:13 16:49 22:05 POC Glucose (mg/dL) 134 H 167 H 255 H (75-99) mg/dL 02/16/21 Range/Units 07:04 POC Glucose (mg/dL) 169 H (75-99) mg/dL Microbiology - Last 24 Hours (Table) 02/14/21 14:47 Urine Culture - Final Urine,Clean Catch Carissa albicans 02/14/21 18:30 Blood Culture - Preliminary Blood No Growth after 24 hours 02/14/21 18:30 Blood Culture Gram Stain - Preliminary Blood Blood Culture - Preliminary Enterococcus faecalis Assessment and Plan Plan: Assessment: 1. End-stage renal disease maintained on hemodialysis on Saturday schedule via permacath. 2. Altered mental status likely from sepsis. 3. Enterococcus bacteremia with source being permacath most likely. 4. Hyperkalemia secondary to chronic kidney disease and metabolic acidosis. Resolved. 5. Anemia of chronic kidney disease. Hemoglobin and cold. 6. Chronic kidney disease mineral bone disease maintained on Renvela. 7. Pleural effusions. Thoracentesis pending. Plan: Hemodialysis today. Monitor vancomycin level. Target level near 15. Infectious disease following. Okay to remove permacath after dialysis today from nephrology standpoint.
--- NOTE | 2021-02-16 09:56 | P.PN ---
Subjective Progress Note Date: 02/16/21 Principal diagnosis: Altered mental status This is a 75-year-old female patient who follows with Dr. Brooks is her primary care provider. She has a history of end-stage renal disease receiving hemodialysis on Saturday, chronic hypoxic respiratory failure on oxygen at 4 L, atrial fibrillation/flutter status post permanent pacemaker insertion, diabetes mellitus type 2, chronic hypotension, underlying cognitive impairment. Earlier this month she had sustained a fall and was in [facility] following head trauma. She had injury to her head and left wrist at that time. She resides in [facility]. She was brought here from [facility] after being taken there for altered mental status. Yesterday during dialysis she was quite hypotensive and bradycardic and dialysis was stopped. An A team was called and she was transferred to the ICU. We are seeing her today in consultation. She is awake, alert and arousable. She sta marleen she was in yazdanism right now. Computed tomography scan of the head from [place] was reported as unremarkable. She was found to have significant left- sided pleural effusion. She is currently on 5 L nasal cannula. 0.9 normal saline at [address] angiogram of the chest ruled out pulmonary embolism. There is bilateral pleural effusions much larger on the left. White count 20.8. Hemoglobin 10.3. Sodium 143. Potassium 3.9. Creatinine 4.23. The patient is seen today 02/16/2021 in follow-up in the intensive care unit. She is currently sitting up in bed. Awake and alert in no acute distress. She is on 3 L nasal cannula maintaining good O2 saturations in the 90s. Blood cu lture was positive for Enterococcus faecalis. She is on vancomycin and ceftriaxone. No IV fluids currently. She remains on hemodialysis Saturday schedule. Concern regarding possible infection from the catheter from 2019. Plan is to remove the catheter after dialysis today. Objective - Vital Signs Vital signs: Vital Signs Temp 97 F L 02/16/21 00:00 Pulse 60 02/16/21 08:47 Resp 19 02/16/21 04:00 BP 92/32 02/16/21 04:00 Pulse Ox 95 02/16/21 04:00 Intake & Output 02/15/21 02/16/21 02/16/21 18:59 06:59 18:59 Intake Total 530 210 Output Total 500 Balance 30 210 Weight 91.6 kg 91.9 kg Intake: IV 80 210 0.9 KVO 80 160 cefTRIAXone 1 gm In 50 Sodium Chloride 0.9% 50 ml @ 100 mls/hr IVPB Q24H [facility] Rx#:[id number] Intake, IV Titration 250 Amount Vancomycin 1,500 mg In 250 Sodium Chloride 0.9% 250 ml @ 125 mls/hr IVPB ONCE ONE Rx#:[id number] Oral 200 Output: Hemodialysis 500 Other: Voiding Method Bedpan Bedpan # Voids 1 1 - Exam GENERAL EXAM: Alert, oriented times one, 75-year-old female patient on 3 L nasal cannula, comfortable in no apparent distress. HEAD: Trauma to fore head with Steri-Strips in place EYES: Normal reaction of pupils, equal size. NOSE: Clear with pink turbinates. THROAT: No erythema or exudates. NECK: No masses, no JVD. CHEST: No chest wall deformity. LUNGS: Bibasilar crackles left greater than right, diminished. CVS: S1 and S2 normal with no audible murmur, irregular rhythm. ABDOMEN: No hepatosplenomegaly, normal bowel sounds, no guarding or rigidity. SPINE: No scoliosis or deformity SKIN: No rashes CENTRAL NERVOUS SYSTEM: No focal deficits, tone is normal in all 4 extremities. EXTREMITIES: Left wrist in immobilizer. There is 1+ peripheral edema. No clubbing, no cyanosis. Peripheral pulses are intact. - Labs CBC & Chem 7: 02/14/21 Unknown 02/14/21 Unknown Labs: Abnormal Lab Results - Last 24 Hours (Table) 02/15/21 02/15/21 02/15/21 Range/Units 12:13 16:49 22:05 POC Glucose (mg/dL) 134 H 167 H 255 H (75-99) mg/dL 02/16/21 Range/Units 07:04 POC Glucose (mg/dL) 169 H (75-99) mg/dL Microbiology - Last 24 Hours (Table) 02/14/21 14:47 Urine Culture - Final Urine,Clean Catch Carissa albicans 02/14/21 18:30 Blood Culture - Preliminary Blood No Growth after 24 hours 02/14/21 18:30 Blood Culture Gram Stain - Preliminary Blood Blood Culture - Preliminary Enterococcus faecalis Assessment and Plan Assessment: 1 Acute hypotension and bradycardia during dialysis requiring transfer to ICU, recovered. Blood cultures positive for Enterococcus faecalis. Currently on vancomycin, ceftriaxone 2 Acute on chronic hypoxemic respiratory failure secondary to large left pleural effusion 3 Large left pleural effusion and fluid volume overload 4 End-stage renal disease receiving hemodialysis on Saturday 5 Diabetes mellitus 6 History of chronic hypotension, on midodrine 7 Underlying cognitive impairment 8 Atrial fibrillation/flutter, anticoagulated with Eliquis, pacemaker implantation 9 Poor overall functional performance based on the above-mentioned multiple comorbidities Plan: The patient was seen and evaluated by Dr. Najera Plan is for removing the hemodialysis catheter postdialysis today Continue vancomycin, ceftriaxone Could be transferred back to the regular medical floor CODE STATUS to be addressed by primary service We will continue to follow I, the cosigning physician, performed a history & physical examination of the patient. Lungs sounds are clear the posterior bases left greater than right, diminished. Maintaining good O2 saturations in the 90s on 3 L/m per nasal cannula. I discussed the assessment and plan of care with my nurse practitioner, Tiffani Sibley. I attest to the above note as dictated by her.
[2021-02-16] MEDS: ASCORBIC ACID 500 MG TAB PO SCH (10:15)
[2021-02-16] MEDS: FOLIC ACID-VIT B COMPLEX-VIT C 1 CAP PO SCH (10:15)
[2021-02-16] MEDS: CYANOCOBALAMIN 500 MCG TAB PO SCH (10:15)
[2021-02-16] MEDS: INSULIN ASPART (NovoLOG) 100 UNIT/ML VIAL SQ SCH ×4 (10:16→20:57)
[2021-02-16] MEDS: SEVELAMER 800 MG TAB PO SCH ×4 (10:16→20:57)
[2021-02-16] MEDS: NYSTATIN 100,000UNIT/GM CREAM 30 GM TUBE TOPICAL SCH ×2 (10:16→20:57)
--- NOTE | 2021-02-16 10:29 | P.GSCN ---
History of Present Illness Consult date: 02/16/21 Reason for Consult: Pericardial effusion Requesting physician: Angel Luis Rizvi History of present illness: This is a 75-year-old inactive female patient who follows with Dr. Jp Brooks on an outpatient basis. She has a previous medical history of congestive heart failure, end-stage renal disease on hemodialysis, chronic atrial fibrillation on Eliquis for anticoagulation, permanent pacemaker, COPD on 4 L home oxygen, diabetes, DVT, hypertension, hyperlipidemia, TIA in 2019. She apparently had a fall at extended care with head injury and was transferred to [facility]. Subsequently she was transferred to [facility] for higher level of care. The patient is a poor historian with flat affect, slow to respond, and confused, and the majority of her history was taken from the chart. Per the records she apparently had some low oxygen saturations and mental status changes. She is currently being treated for bacteremia with enterococcus faecalis as well as UTI. Outside CT of the brain demonstrated no acute intracranial process. Chest x-ray demonstrated left-sided pleural effusion and enlargement of the cardiac silhouette. Chest CTA demonstrated bilateral pleural effusions, left greater than right ascending aorta measuring 4.1 cm. She was admitted to medical surgical floor, however an A team was called for hypotension and mental status changes during dialysis. Dialysis was stopped in the patient was transferred to ICU as a cardiac stepdown unit overflow patient for further monitoring. Chest ultrasound was ordered by pulmonology and left side was marked for possible thoracentesis with a pocket size 7.2 cm. Transthoracic echocardiogram was also completed with demonstration of large generalized pericardial effusion, no tamponade physiology per Dr. Rizvi. Dr. Dubois from cardiothoracic surgery was consulted for treatment of pericardial effusion. Review of Systems Review of systems completed by utilizing the chart and patient's response that s he "couldn't breathe" as the reason she was brought in - Respiratory Reports as per HPI, Reports dyspnea - Musculoskeletal Musculoskeleta Comment(s): Recent fall with head injury Past Medical History Past Medical History: Atrial Fibrillation, Asthma, Heart Failure, CVA/TIA, Diabetes Mellitus, Deep Vein Thrombosis (DVT), GERD/Reflux, Hyperlipidemia, Hypertension, Osteoarthritis (OA), Renal Disease Additional Past Medical History / Comment(s): TIA 2018; HEMODIALYSIS //Saturday-given ativan prior to dialysis History of Any Multi-Drug Resistant Organisms: MRSA Year Discovered:: 05/12/20 MDRO Source:: MRSA URINE Past Surgical History: Adenoidectomy, Appendectomy, Cholecystectomy, Pacemaker, Tonsillectomy Past Anesthesia/Blood Transfusion Reactions: No Reported Reaction Type of Cardiac Device: Permanent Pacemaker Device Placement Date:: 2016 Past Psychological History: Anxiety, Depression Smoking Status: Never smoker Past Alcohol Use History: None Reported Past Drug Use History: None Reported - Past Family History Father Family Medical History: Myocardial Infarction ([place]) Additional Family Medical History / Comment(s): RHEUMATIC FEVER Medications and Allergies Home Medications Medication Instructions Recorded Confirmed Type Ezetimibe [Zetia] 10 mg PO HS 12/22/17 02/14/21 History Ascorbic Acid [Vitamin C] 500 mg PO DAILY 08/19/18 02/14/21 History Midodrine HCl [ProAmatine] 10 mg PO TUTHSA 09/23/19 02/14/21 History Apixaban [Eliquis] 2.5 mg PO DIRECTED 05/10/20 02/15/21 History Bydureon Bcise 2mg/0.85ml 2 mg SQ WE 05/10/20 02/14/21 History Magnesium Hydroxide [Milk of 2,400 mg PO Q24H PRN 05/10/20 02/14/21 History Magnesia] Ondansetron [Zofran] 4 mg PO Q4H PRN 05/10/20 02/14/21 History Renvela Packet 0.8gm 0.8 gm PO ACHS 05/10/20 02/14/21 History Aspirin EC [Ecotrin Low Dose] 81 mg PO DIRECTED 11/22/20 02/15/21 History Insulin Glargine,Hum.rec.anlog 15 unit SQ DAILY 11/22/20 02/14/21 History [Basaglar Kwikpen U-100] Mag Hydrox/Aluminum Hyd/Simeth 10 ml PO Q4H PRN 11/22/20 02/14/21 History [Mylanta Maximum Strength Liq] Acetaminophen Tab [Tylenol] 650 mg PO TID 02/14/21 02/14/21 History Ciprofloxacin HCl [Cipro] 500 mg PO Q12H 02/14/21 02/14/21 History Cyanocobalamin (Vitamin B-12) 1,000 mcg PO DAILY 02/14/21 02/14/21 History [Vitamin B-12] Insulin Glargine,Hum.rec.anlog 15 units SQ SUMOWEFR 02/14/21 02/14/21 History [Semglee Pen] Insulin Lispro [Insulin Lispro See Protocol SQ ACHS 02/14/21 02/14/21 History Kwikpen U-100] LORazepam [Ativan] 1 mg PO HS 02/14/21 02/14/21 History LORazepam [Ativan] 1 mg PO TUTHSA 02/14/21 02/14/21 History Lactobacillus Acidophilus 1 cap PO DAILY 02/14/21 02/14/21 History [Acidophilus] Metoprolol Tartrate [Lopressor] 25 mg PO DAILY 02/14/21 02/14/21 History Nystatin 1 applic TOPICAL BID 02/14/21 02/14/21 History Renal-Melita Tab 0.8mg 1 tab PO DAILY 02/14/21 02/14/21 History Allergies Allergy/AdvReac Type Severity Reaction Status Date / Time lisinopril Allergy Itching Verified 02/14/21 13:06 Ylmqqha-Jvj-Qzo Reductase Allergy Itching Verified 02/14/21 13:06 Inhibitor Surgical - Exam Vital Signs Temp Pulse Resp BP Pulse Ox 97.5 F L 61 18 118/41 97 02/14/21 11:11 02/14/21 11:11 02/14/21 11:11 02/14/21 11:11 02/14/21 11:11 CONSTITUTIONAL: Awake and alert, appears comfortable, cooperative, no acute distress EYES: Pupils equal, round, reactive to light, normal ocular movement ENT: Dry mucous membranes NECK: No masses, no bruits, trachea midline RESPIRATORY: Lungs sounds very diminished to auscultation bilaterally. Respirations even, nonlabored. Currently on 4 L nasal cannula with oxygen saturation 86%. Weak cough. CARDIOVASCULAR: S1, S2 present. Irregular rate and rhythm, controlled atrial fibrillation on telemetry. Palpable peripheral pulses bilaterally. Bilateral lower extremity edema present. GASTROINTESTINAL: Abdomen soft, nontender, nondistended, obese without masses or organomegaly noted. There is no rebound or guarding present. GENITOURINARY: Right anterior chest wall permacath present INTEGUMENTARY: Skin is warm, incision present to forehead, well approximated, Steri-Strips present NEUROLOGIC: Cranial nerves II through XII intact, delayed response to questions MUSKULOSKELETAL: Able to move all extremities, strength equal bilaterally, weak PSYCHIATRIC: Alert and oriented to person and time, unable to state where she is at, flat affect Results - Labs 02/14/21 Unknown 02/14/21 Unknown Abnormal Lab Results - Last 24 Hours (Table) 02/15/21 02/15/21 02/15/21 Range/Units 12:13 16:49 22:05 POC Glucose (mg/dL) 134 H 167 H 255 H (75-99) mg/dL 02/16/21 Range/Units 07:04 POC Glucose (mg/dL) 169 H (75-99) mg/dL Microbiology - Last 24 Hours (Table) 02/14/21 14:47 Urine Culture - Final Urine,Clean Catch Carissa albicans 02/14/21 18:30 Blood Culture - Preliminary Blood No Growth after 24 hours 02/14/21 18:30 Blood Culture Gram Stain - Preliminary Blood Blood Culture - Preliminary Enterococcus faecalis - Imaging Chest x-ray: image reviewed CT scan - chest: report reviewed, image reviewed Additional studies: Echocardiogram films reviewed Assessment and Plan Assessment: 1. Pericardial effusion 2. Bilateral pleural effusion, left greater than right 3. Acute on chronic hypoxic respiratory failure, secondary to above 4. Bacteremia with enterococcus faecalis, UTI 5. End-stage renal disease on hemodialysis 6. Chronic atrial fibrillation on Eliquis for anticoagulation, last dose 02/14/2021 7. Permanent pacemaker 8. COPD on 4 L home oxygen 9. Diabetes 10. History of hypertension, hypotensive this admission during dialysis not requiring any pressors 11. History of hyperlipidemia 12. History of TIA in 2019 13. Recent history of fall Plan: The patient was seen and examined at the bedside in the intensive care unit. Chart/diagnostics were reviewed. The case was discussed between Dr. Rizvi and Dr. Dubois. The patient has had no lab work drawn in the last 2 days as phlebotomy has been unable to get her labs. No coagulation studies have been completed this admission, last dose of Eliquis was 02/14/2021. The patient was supposed to have thoracentesis completed, however this is on hold until coagulation studies can be completed. We may attempt pericardiocentesis at the bedside this afternoon although we would prefer coagulation studies to be completed. Consent to be obtained from next of kin/DPOE. Medical management of other comorbidities per primary care service. More recommendations to follow. Thank you Dr. Rizvi for this consult Time with Patient: Greater than 30
[2021-02-16] MEDS: MIDODRINE 5 MG TAB PO SCH (10:37)
--- NOTE | 2021-02-16 11:02 | P.CNNES ---
History of Present Illness Consult date: 02/16/21 Requesting physician: Cortez Harman Reason for Consult: altered mental status History of Present Illness: This is a 75-year-old woman with medical history of reported underlying cognitive impairment, transient ischemic attack, diabetes mellitus, end-stage renal disease on dialysis, chronic hypoxic respiratory failure on 4 L of oxygen, atrial fibrillation/flutter status post pacemaker on Eliquis who was transfered from [facility] for escalation of care for for altered mental status and needing dialysis on 02/14/2021. History is resulting from medical record. Patient resides in [facility]. She initially presented to [facility] for altered mental status. Patient had CT of the head at the outside facility ([facility]) and the was reported as unremarkable. She was found to have significant left pleural effusion. It Seems that earlier this month the patient sustained a fall and was in [facility] following Trauma. She had injury to her head and left wrist at that time. On 02/14/2021 the patient the was getting dialysis and was quite hypotensive and bradycardic as a result dialysis was stopped. Therefore the patient was transferred to ICU. Per medical note is seems the patient currently on Cipro for UTI diagnosed on 02/13/2021. During her hospital stay the patient has been hypotensive. Per the patient ICU nurse she was notified that her pacemaker leads are m isplaced and it is suspected that is why she had bradycaria. No seizure-like episodes are witnessed during her hospital stay here. It is reported that the patient typically is oriented 1-2 and does frequently yell out "somebody help me" which appears to be her baseline. Some other workup in the hospital consisted off. Most current vital signs is blood pressure of 84/37, heart rate of 60, respir atory of 8, temperature of 97.0 Fahrenheit axillary and pulse ox of 96% on 5 L of nasal canuli. Since the patient has been in our facility during this admission she's been afebrile. On initial presentation the patient white blood cell is 22K is elevated, hemoglobin 7.2, hematocrit 32.8. The platelet is 460,000 which is elevated. Initial chemistry panel in our facility as the the sodium is 134 which is minimally low but the repeat is 143 which is normal. The BUN is 58 and the creatinine is 6.03 but then the repeated creatinine is 4.23. Patient the sugar is in the 180s to 240s AST of 15 and ALT of 9. Calcium 9.6 which is considered within normal limits. Urinalysis is suggestive of urinary tract infection. Patient has large leukocyte esterase, urine white blood cells more than 182, urine white blood cell clumps is many urine bacteria was occasional. Review of Systems Review of system: The 12 point system was reviewed and apparent positive and negative per HPI. Past Medical History Past Medical History: Atrial Fibrillation, Asthma, Heart Failure, CVA/TIA, Diabetes Mellitus, Deep Vein Thrombosis (DVT), GERD/Reflux, Hyperlipidemia, Hypertension, Osteoarthritis (OA), Renal Disease Additional Past Medical History / Comment(s): TIA 2018; HEMODIALYSIS //Saturday-given ativan prior to dialysis History of Any Multi-Drug Resistant Organisms: MRSA Date of last positivie culture/infection: 05/12/20 MDRO Source:: MRSA URINE Past Surgical History: Adenoidectomy, Appendectomy, Cholecystectomy, Pacemaker, Tonsillectomy Past Anesthesia/Blood Transfusion Reactions: No Reported Reaction Type of Cardiac Device: Permanent Pacemaker Device Placement Date:: 2016 Past Psychological History: Anxiety, Depression Smoking Status: Never smoker Past Alcohol Use History: None Reported Past Drug Use History: None Reported - Past Family History Father Family Medical History: Myocardial Infarction ([place]) Additional Family Medical History / Comment(s): RHEUMATIC FEVER Medications and Allergies Home Medications Medication Instructions Recorded Confirmed Type Ezetimibe [Zetia] 10 mg PO HS 12/22/17 02/14/21 History Ascorbic Acid [Vitamin C] 500 mg PO DAILY 08/19/18 02/14/21 History Midodrine HCl [ProAmatine] 10 mg PO TUTHSA 09/23/19 02/14/21 History Apixaban [Eliquis] 2.5 mg PO DIRECTED 05/10/20 02/15/21 History Bydureon Bcise 2mg/0.85ml 2 mg SQ WE 05/10/20 02/14/21 History Magnesium Hydroxide [Milk of 2,400 mg PO Q24H PRN 05/10/20 02/14/21 History Magnesia] Ondansetron [Zofran] 4 mg PO Q4H PRN 05/10/20 02/14/21 History Renvela Packet 0.8gm 0.8 gm PO ACHS 05/10/20 02/14/21 History Aspirin EC [Ecotrin Low Dose] 81 mg PO DIRECTED 11/22/20 02/15/21 History Insulin Glargine,Hum.rec.anlog 15 unit SQ DAILY 11/22/20 02/14/21 History [Basaglar Kwikpen U-100] Mag Hydrox/Aluminum Hyd/Simeth 10 ml PO Q4H PRN 11/22/20 02/14/21 History [Mylanta Maximum Strength Liq] Acetaminophen Tab [Tylenol] 650 mg PO TID 02/14/21 02/14/21 History Ciprofloxacin HCl [Cipro] 500 mg PO Q12H 02/14/21 02/14/21 History Cyanocobalamin (Vitamin B-12) 1,000 mcg PO DAILY 02/14/21 02/14/21 History [Vitamin B-12] Insulin Glargine,Hum.rec.anlog 15 units SQ SUMOWEFR 02/14/21 02/14/21 History [Semglee Pen] Insulin Lispro [Insulin Lispro See Protocol SQ ACHS 02/14/21 02/14/21 History Kwikpen U-100] LORazepam [Ativan] 1 mg PO HS 02/14/21 02/14/21 History LORazepam [Ativan] 1 mg PO TUTHSA 02/14/21 02/14/21 History Lactobacillus Acidophilus 1 cap PO DAILY 02/14/21 02/14/21 History [Acidophilus] Metoprolol Tartrate [Lopressor] 25 mg PO DAILY 02/14/21 02/14/21 History Nystatin 1 applic TOPICAL BID 02/14/21 02/14/21 History Renal-Melita Tab 0.8mg 1 tab PO DAILY 02/14/21 02/14/21 History Allergies Allergy/AdvReac Type Severity Reaction Status Date / Time lisinopril Allergy Itching Verified 02/14/21 13:06 Uyjigri-Uvg-Eyi Reductase Allergy Itching Verified 02/14/21 13:06 Inhibitor Physical Examination - Vital Signs Vital Signs: Vital Signs Temp Pulse Pulse Resp BP BP Pulse Ox 02/16/21 02:00 60 02/16/21 00:00 97 F L 60 60 8 L 84/37 96 02/15/21 22:00 66 27 H 84/37 93 L 02/15/21 20:21 68 02/15/21 20:06 70 02/15/21 20:00 96.8 F L 68 67 24 97/67 95 02/15/21 18:00 62 19 97/67 93 L 02/15/21 16:12 60 16 97/67 97 02/15/21 16:08 60 02/15/21 16:00 59 L 18 97/67 98 02/15/21 15:57 62 02/15/21 13:36 97.3 F L 74 15 103/58 02/15/21 12:10 66 16 02/15/21 12:00 67 17 95/28 97 02/15/21 11:55 67 16 02/15/21 10:00 63 16 97/53 92 L 02/15/21 08:20 67 16 02/15/21 08:09 73 16 98 02/15/21 08:00 97.3 F L 74 14 104/38 91 L Intake and Output 02/15/21 02/16/21 02/16/21 22:59 06:59 14:59 Intake Total 130 Balance 130 Intake: IV 130 0.9 KVO 80 cefTRIAXone 1 gm In 50 Sodium Chloride 0.9% 50 ml @ 100 mls/hr IVPB Q24H [facility] Rx#:[id number] Other: Voiding Method Bedpan Bedpan # Voids 0 Weight 91.9 kg GENERAL: The patient is lying in bed and is not in acute distress. HENT: Has a large scar over the forehead (from a fall). CHEST: The heart rate is regular rate rhythm. No murmurs to auscultation. No carotid bruit bilaterally. LUNG: Clear to auscultation bilaterally no wheezing noted throughout. Not labored breathing. ABDOMEN/GI: Bowel sounds present in all 4 quadrants. No tenderness to palpation throughout. NEUROLOGICAL: Higher mental function: The patient is awake, alert, oriented to self and place but not time. The patient is slow in responding. Patient is able to identify some objects (pen and watch). Patient is following commands. No aphasia and no neglect. Cranial nerves: The pupils are round, equal and reactive to light. Visual gaytan are hard to assess (this was tried multiple times). Extraocular movement and felt the pursuit is slow but no nystagmus is noted in all directions. Facial sensation is normal to touch throughout. The facial strength is subtle left nasolabial falttening. Hearing is mildly to moderately decreased bilaterally to hand rub. Tongue is midline and moved [id number] without any difficulty. No dysarthria is noted. Shoulder shrug is antigravity bilaterally. Motor: Gait is deferred. The strength is moving all extremities above gravity without drift. Normal tone and bulk. Cerebellum: Normal finger to nose bilaterally. Sensation: Sensation is normal to touch throughout. Reflexes (right/left): 2+ throughout. Plantars is right plantar is upgoing at baseline while left is mute. Results - Laboratory Findings CBC and BMP: 02/14/21 Unknown 02/14/21 Unknown Abnormal Lab Findings: Abnormal Labs 02/14/21 02/14/21 02/14/21 14:47 17:41 18:54 WBC RBC Hgb Hct MCV MCH MCHC RDW Plt Count Neutrophils # Lymphocytes # Macrocytosis Sodium Potassium Chloride Carbon Dioxide BUN Creatinine Glucose POC Glucose (mg/dL) 186 H 201 H Alkaline Phosphatase Albumin Urine Appearance Turbid H Urine Protein 2+ H Urine Blood Moderate H Ur Leukocyte Esterase Large H Urine RBC 40 H Urine WBC >182 H Urine WBC Clumps Many H Urine Bacteria Occasional H Hyaline Casts 17 H Urine Mucus Rare H 02/14/21 02/14/21 02/14/21 22:08 22:35 22:35 WBC 22.0 H RBC 2.84 L Hgb 10.2 L Hct 32.8 L MCV 115.6 H MCH 35.8 H MCHC 30.9 L RDW 16.0 H Plt Count 460 H Neutrophils # Lymphocytes # Macrocytosis Marked A Sodium 134 L Potassium 6.0 H Chloride 97 L Carbon Dioxide 19 L BUN 58 H Creatinine 6.03 H Glucose 202 H POC Glucose (mg/dL) 240 H Alkaline Phosphatase Albumin Urine Appearance Urine Protein Urine Blood Ur Leukocyte Esterase Urine RBC Urine WBC Urine WBC Clumps Urine Bacteria Hyaline Casts Urine Mucus 02/14/21 02/14/21 02/15/21 Unknown Unknown 06:10 WBC 22.8 H RBC 2.94 L Hgb 10.3 L Hct 33.2 L MCV 113.0 H MCH 35.1 H MCHC RDW 15.9 H Plt Count 455 H Neutrophils # 21.0 H Lymphocytes # 0.6 L Macrocytosis Marked A Sodium Potassium Chloride Carbon Dioxide BUN 37 H Creatinine 4.23 H Glucose 169 H POC Glucose (mg/dL) 202 H Alkaline Phosphatase 137 H Albumin 3.4 L Urine Appearance Urine Protein Urine Blood Ur Leukocyte Esterase Urine RBC Urine WBC Urine WBC Clumps Urine Bacteria Hyaline Casts Urine Mucus 02/15/21 02/15/21 02/15/21 12:13 16:49 22:05 WBC RBC Hgb Hct MCV MCH MCHC RDW Plt Count Neutrophils # Lymphocytes # Macrocytosis Sodium Potassium Chloride Carbon Dioxide BUN Creatinine Glucose POC Glucose (mg/dL) 134 H 167 H 255 H Alkaline Phosphatase Albumin Urine Appearance Urine Protein Urine Blood Ur Leukocyte Esterase Urine RBC Urine WBC Urine WBC Clumps Urine Bacteria Hyaline Casts Urine Mucus 02/16/21 07:04 WBC RBC Hgb Hct MCV MCH MCHC RDW Plt Count Neutrophils # Lymphocytes # Macrocytosis Sodium Potassium Chloride Carbon Dioxide BUN Creatinine Glucose POC Glucose (mg/dL) 169 H Alkaline Phosphatase Albumin Urine Appearance Urine Protein Urine Blood Ur Leukocyte Esterase Urine RBC Urine WBC Urine WBC Clumps Urine Bacteria Hyaline Casts Urine Mucus Assessment and Plan Assessment: Episodes of falls is suspected due to bradycardia (It is suspected that patient pacemaker leads are misplaced) Altered mental status due to septic encephalopathy. Also has a component of some metabolic encephalopathy---mentation improving Underlying cognitive impairment Acute urinary tract infection End-stage renal disease on dialysis History of atrial fibrillation on pacemaker (was on eliquis) Diabetes mellitus Chronic hypoxic respiratory failure Plan: An EEG is ordered by the primary team. I'll not start the patient on an antiepileptic drug unless there is epileptiform discharges or seizure on the EEG. Hemoglobin A1c is ordered and is pending. Patient had vitamin B12 in our facility on 11/22/2020 and it was 273 which is considered low normal. She is on Vitamin B12 1000mcg daily. She is also currently on folic acid 1 tab daily. I ordered TSH. I will like get a repeat CT of the head to compare with that the outside facility. Please avoid hypotensive episode and we'll defer the management to the primary/ICU team. IF possible obtain orthostatic vitals once patient is stable. Infection disease team is on board PT, OT and [employer] ATTENDANT are consulted. Will defer the rest of medical management to the primary and ICU team. The plan is discussed with the patient's nurse. Thank you for the consultation. Ricardo Najera M.D. Neuro-hospitalist Time with Patient: Greater than 30
[2021-02-16 11:13] LABS: Mean Platelet Volume 7.7; Platelet Count 437 k/uL (150-450)
--- NOTE | 2021-02-16 11:13 | PN ---
PROGRESS NOTE The patient is an is a 75-year-old female with end-stage renal disease on hemodialysis, history of chronic persistent atrial fibrillation, permanent pacemaker implantation, who was having dialysis and there was a question of bradycardia and subsequently she was transferred to the ICU. She had an echocardiogram yesterday that revealed a preserved left ventricular size and systolic function with moderate to large total effusion, but no evidence of tamponade. She is awake, following commands. She denies any symptoms of chest discomfort. She denies any dizziness or palpitation. She is in atrial fibrillation with controlled ventricular response. There is no evidence of hypotension. She had a chest CT angiogram performed that revealed bilateral pleural effusion larger on the left side. He had a chest ultrasound for possible thoracentesis that revealed the effusion. She continues to be at this time on the Zetia 10 mg daily, midodrine. Her anticoagulation is on hold for the possibility of thoracentesis. PHYSICAL EXAMINATION: Blood pressure running in the 90s with a heart rate in the 60s. Lungs with decreased breath sounds at the bases heart irregular regular S1, S2. No S3 with systolic murmur no diastolic murmur. ABDOMEN: Soft nontender, positive bowel sounds no organomegaly. EXTREMITIES: No edema. LAB DATA: Lab data revealed BUN and creatinine 27 and 4.23. Hemoglobin 10.3, white blood cell of 22.8 that was done on February 22. Her echocardiogram as noted revealed the pericardial effusion with no evidence of tamponade. Her left ventricular systolic function was normal. Ejection fraction of 50% to 55%. She had mild mitral regurgitation. IMPRESSION: 1. End-stage renal disease, on hemodialysis. 2. Chronic persistent atrial fibrillation anticoagulated, anticoagulation is on hold at this time for thoracentesis. 3. Change in mental status. 4. Pleural and pericardial effusion with no evidence of tamponade. 5. Prior history of hypotension and migraine on midodrine. 6. Recent fall with head injury revealed this consult. RECOMMENDATION: Will interrogate her pacemaker to rule out any pacemaker malfunction. I will obtain consultation from cardiovascular surgical team for evaluation for the pericardial effusion. It is possible the atrial fibrillation effusion is related to her renal function and may have been affecting her blood pressure. MMODL / IJN: [id number] /
[2021-02-16 11:19] LABS: INR 1.6 (<1.2)
[2021-02-16 11:48] LABS: Glucose,Whole Blood 242 mg/dL (75-99)
--- NOTE | 2021-02-16 12:13 | CT ---
EXAMINATION TYPE: CT brain wo con DATE OF EXAM: 02/16/2021 COMPARISON: 11/22/2020 HISTORY: altered mental status and falls CT DLP: 1143.[address] of the brain was performed. The ventricles, basal cisterns and sulci overlying the cerebral convexities demonstrate mild enlargem ent. There is no evidence for intracranial hemorrhage or sulcal effacement. There is decreased attenuation about the periventricular white matter and deep white matter of both c erebral hemispheres, compatible with chronic small vessel ischemia. Differential diagnosis does inclu de demyelination. No mass effects are seen.No midline shift. Osseous calvarium is intact. If symptoms persist consider MRI. IMPRESSION: 1. Age related atrophic and chronic small vessel ischemic change without acute intracranial process s een at this time.
--- NOTE | 2021-02-16 14:48 | P.PCN ---
Date of Procedure: 02/16/21 Preoperative Diagnosis: Pericardial effusion Postoperative Diagnosis: Same Procedure(s) Performed: Pericardiocentesis with placement of pigtail drain Implants: 8.5-Chilean pigtail drain Anesthesia: local Surgeon: Leonardo Dubois Operative Findings: 300 mL of bloody fluid was drained Description of Procedure: At the bedside the patient subxiphoid region was sterilely prepped and draped local anesthesia was introduced using 1% lidocaine 18-gauge needle was used to puncture the pericardial space and a guidewire threaded without difficulty into the pericardial space dilator was placed over the guidewire and then an 8.5- Chilean pigtail was placed over the guidewire and into the pericardial space this was connected to a Pleur-evac was secured with a 3-0 silk suture and dry sterile dressing was applied
--- NOTE | 2021-02-16 15:20 | XR ---
EXAMINATION TYPE: XR chest 1V portable DATE OF EXAM: 02/16/2021 COMPARISON: 02/14/2021 HISTORY: post pericardiocentesis. TECHNIQUE: Single frontal view of the chest is obtained. FINDINGS: Left pleural effusion with airspace disease appears similar to the prior exam. Prominence of the int erstitium of the right lung appears similar to the prior exam. Enlargement of the cardiac silhouette is again seen. Right dialysis catheter is present. Pericardial drain is new. IMPRESSION: New pericardial drain, otherwise no significant change since the prior exam.
--- NOTE | 2021-02-16 16:11 | CONS ---
CONSULTATION DATE OF SERVICE : 02/16/21 I have seen, examined, and agree with the midlevel's findings. MMODL / IJN: [id number] / -18
--- NOTE | 2021-02-16 16:35 | PN ---
PROGRESS NOTE DATE OF SERVICE: 02/16/2021. REASON FOR FOLLOWUP: Enterococcus faecalis bacteremia, possible complicated ( ) infection. INTERVAL HISTORY: The patient is afebrile. The patient is more awake and alert. Patient is breathing comfortably. No chest pain. No abdominal pain or diarrhea. PHYSICAL EXAMINATION: Blood pressure 111/46, pulse of 61, temperature is 97.7. He is 91% on 3 L. General description is a middle-aged female lying in no distress. Respiratory system: Unlabored breathing, clear to auscultation anteriorly. Heart S1, S2. Regular rate and rhythm. Abdomen soft, no tenderness. LABS: INR is ( ) is 29.1. Blood culture with Enterococcus faecalis. Urine showing Carissa albicans. DIAGNOSTIC IMPRESSION AND PLAN: Patient with Enterococcus faecalis bacteremia, concern for possible PermCath infection ( ) off dialysis today and the patient's cultures were negative, did get another PermCath. Covered with vancomycin while waiting for the sensitivity on the Enterococcus. Continue supportive care. MMODL / IJN: [id number] /
[2021-02-16 17:10] LABS: Glucose,Whole Blood 134 mg/dL (75-99)
[2021-02-16 17:34] LABS: Hemoglobin A1C 5.8 % (4.0-6.0)
--- NOTE | 2021-02-16 17:49 | P.PN ---
Progress Note - Text Progress Note Date: 02/16/21 Chief Complaint: Short of breath History of presenting complaint: This is a 75-year-old patient who follows with Dr. Jp Brooks. Patient is resident of [facility] from where she was transferred to [facility]. Chronic stable medical conditions include CHF, end-stage kidney disease on hemodialysis TTS, atrial fibrillation, permanent pacemaker, GERD. COPD. On 4 L of oxygen at baseline. Patient just recently was at [facility] following a head trauma. Laying down which she was carried out. At her baseline patient is AO 2. Patient was transferred to [facility] as patient had become a bit confused. Normally on 4 L of oxygen she is oxygen is a 90% but dropped down to 80s. Computed tomography scan of the head was unremarkable. Chest x-rays shown pleural effusion. Also patient was started on ciprofloxacin for recent UTI. I saw the patient in the ER this afternoon. She does not want to be here she says. Patient not a good historian. Nephrology and pulmonary were consulted. Patient is short of breath. Slight cough. Not sure about fever. Blood cultures positive for Enterococcus faecalis. Pericardiocentesis done with 3 units cc of bloody fluid removed. Pigtail catheter placed. Hemodialysis catheter removed because of infection February 15: ICU: Yesterday evening during hemodialysis patient had an episode of hypotension bradycardia.A team was called out. There was a slight change in mental status. Recovered. Patient is moved to the ICU. Patient's significant other is in the room. Today. Patient on clear liquids. Ultrasound marking for the left pleural effusion has been done. Consultation to cardiology, neurology's been done. EEG ordered. Blood cultures growing gram- positive cocci in cultures. Given vancomycin February 16: 2-D echocardiogram which showed a large generalized pericardial effusion. Today Dr. Dubois from cardiothoracic surgery did pericardiocentesis: 300 mL of bloody fluid was obtained. Pigtail catheter was placed. D POA at the bedside. Patient tired. Has not eaten today. Hemodialysis today. Following that the hemodialysis catheter will be removed by Dr. Pearl. Review of systems: Was done for constitutional, cardiovascular, GI, pulmonary. relevant finding as above Active Medications Acetaminophen (Acetaminophen Tab 325 Mg Tab) 650 mg PO Q6HR PRN PRN Reason: Mild Pain or Fever > 100.5 Al Hydroxide/Mg Hydroxide (Mag Hydrox/Al Hydrox/Simeth 30 Ml Cup) 10 ml PO Q4H PRN PRN Reason: Indigestion Albuterol Sulfate (Albuterol Nebulized 2.5 Mg/3 Ml) 2.5 mg INHALATION RT-QID [facility] Last Admin: 02/16/21 16:04 Dose: Not Given Documented by: Ascorbic Acid (Ascorbic Acid 500 Mg Tab) 500 mg PO DAILY [facility] Last Admin: 02/16/21 10:15 Dose: 500 mg Documented by: Calcium Carbonate/Glycine (Calcium Carbonate 500 Mg Chewable) 1,000 mg PO Q4HR PRN PRN Reason: Dyspepsia Cyanocobalamin (Cyanocobalamin 500 Mcg Tab) 1,000 mcg PO DAILY [facility] Last Admin: 02/16/21 10:15 Dose: 1,000 mcg Documented by: Ezetimibe (Ezetimibe 10 Mg Tab) 10 mg PO HS [facility] Last Admin: 02/15/21 22:13 Dose: 10 mg Documented by: Ceftriaxone Sodium 1 gm/ (Sodium Chloride) 50 mls @ 100 mls/hr IVPB Q24H [facility] Last Admin: 02/15/21 22:13 Dose: 100 mls/hr Documented by: Insulin Aspart (Insulin Aspart (Novolog) 100 Unit/Ml Vial) 0 unit SQ ACHS [facility]; Protocol Last Admin: 02/16/21 12:41 Dose: 3 unit Documented by: Lactulose (Lactulose 20 Gm/30 Ml Cup) 20 gm PO DAILY PRN PRN Reason: Constipation Magnesium Hydroxide (Magnesium Hydroxide 2,400 Mg/10 Ml Cup) 2,400 mg PO Q24H PRN PRN Reason: Constipation Midodrine (Midodrine 5 Mg Tab) 10 mg PO TuThSa@0900 [facility] Last Admin: 02/16/21 10:37 Dose: 10 mg Documented by: Miscellaneous Information (Rx Info: Iv Contrast Was Given 1 Each Misc) 1 each MISCELLANE DAILY PRN PRN Reason: Per Protocol Stop: 02/16/21 18:05 Miscellaneous Information (Vancomycin Iv Per Pharmacy 1 Each Misc) 1 each MISCELLANE DIRECTED PRN; Protocol PRN Reason: Per Protocol Multivit/Ca Carb/B Cmplx/FA/Prenat (Folic Acid-Vit B Complex-Vit C 1 Cap) 1 each PO DAILY [facility] Last Admin: 02/16/21 10:15 Dose: 1 each Documented by: Naloxone HCl (Naloxone 0.4 Mg/Ml 1 Ml Vial) 0.2 mg IV Q2M PRN PRN Reason: Opioid Reversal Nystatin (Nystatin 100,000unit/Gm Cream 30 Gm Tube) 1 applic TOPICAL BID [facility]; Protocol Last Admin: 02/16/21 10:16 Dose: 1 applic Documented by: Ondansetron HCl (Ondansetron 4 Mg/2 Ml Vial) 4 mg IVP Q8HR PRN PRN Reason: Nausea And Vomiting Sevelamer Carbonate (Sevelamer 800 Mg Tab) 800 mg PO ACHS [facility] Last Admin: 02/16/21 12:41 Dose: Not Given Documented by: Past medical history to include: Atrial fibrillation, asthma, CHF, diabetes, DVT, GERD, hypertension, hyperlipidemia, osteomyelitis discitis, end-stage kidney disease with hemodialysis, TIA, permanent pacemaker, more disorder. Oxygen 4-4 L Social history: No history of smoking or alcohol. Currently at [facility] Family history: Rheumatic fever, [place] Physical examination: VITAL SIGNS: 97.7, 64, 14, 108/53, 94% on 3 L GENERAL:, reclining in bed, tired, EYES: Pupils equal. Conjunctiva normal. HEENT: External appearance of nose and ears normal, oral cavity grossly normal. NECK: JVD unable to assess; masses not palpable. HEART: First and second heart sounds are normal; some edema. LUNGS:[ Respiratory rate increased, diminished breath sounds. ABDOMEN: Soft, nontender, liver spleen not palpable, no masses palpable. PSYCH: Answering simple questions INVESTIGATIONS, reviewed in the clinical context: February 16: INR 1.6 TSH 3.8 February 15: WBC 22.8 hemoglobin 10.3 potassium 3.9 BUN 37 creatinine 4.23 2-D echocardiogram: EF 50-55% large generalized pericardial effusion Blood culture [February 14]: Enterococcus faecalis [Labs from [facility]] WBC 20.4 hemoglobin 10.2 platelets 453 sodium 133 potassium 5.5 BUN 56 crit and 6.7 ALT, AST both normal bilirubin 0.5 albumin 3.7 Troponin I 0.015 Computed tomography scan of the head reportedly negative EKG tracing personally reviewed by me-atrial flutter fibrillation with intraventricular block pattern Chest x-ray film personally reviewed by me-cardiomegaly, trachea pole to the right, pleural effusion Assessment and plan: -Acute hypoxic respiratory failure from large pleural effusion Could be from inadequate hemodialysis and/or CHF. 4 aggressive hemodialysis and possible thoracentesis -Chronic hypoxic respiratory failure on 4 L of oxygen -Bacteremia Enterococcus faecalis Vancomycin. Hemodialysis catheter being removed -Large pericardial effusion: Diagnosis. February 16: Pericardiocentesis of 300 mL of bloody fluid. Pigtail catheter. -End-stage kidney disease on hemodialysis, TTS Hemodialysis today -Persistent atrial flutter fibrillation Continue eliquis -Acute UTI with cystitis, IV ceftriaxone. Culture pending -Diabetes mellitus type 2, chronically on insulin Follow Accu-Cheks. -Chronic hypotension Patient is on midodrine -Chronic medical debility -Acute delirium from hypoxia/hypoxic encephalopathy Follow with neurology. EEG. -Underlying cognitive impairment -Permanent pacemaker Patient moved out of the ICU. Tired. Status post pericardiocentesis. Hemodialysis today. Hemodialysis catheter be removed. Discussed with Silas RYAN at the bedside.
--- NOTE | 2021-02-16 19:52 | PCN ---
PROCEDURE NOTE PREOPERATIVE DIAGNOSIS: Acute on chronic failure, positive for enterococcus bacteremia. POSTOPERATIVE DIAGNOSIS: Acute on chronic failure, positive for enterococcus bacteremia. PROCEDURE PERFORMED: Removal of dialysis catheter. DESCRIPTION OF PROCEDURE: The patient was seen in the room. Right side of the neck and chest was prepped and drapes applied in a sterile manner. 1% lidocaine infiltrated into the exit site of catheter. A small incision was made, went circumferentially around the cuff. Catheter was removed. The incision was closed with 3-0 nylon. Dressing applied. Patient tolerated the procedure well. MMODL / IJN: [id number] /
--- NOTE | 2021-02-16 19:52 | CONS ---
DATE OF CONSULTATION: 02/16/2021 This is a 75-year-old female known to me from the past. The patient had a right IJ catheter placed in the past. The patient has been admitted. She has bacteremia. I was consulted for removal of dialysis catheter. She is on IV antibiotic under care of Infectious Disease. The patient also has a chest tube placed for effusion. Patient had a pacemaker placed on the left side of the chest. EXAMINATION: HEAD: Normocephalic. No bruit appreciated. LUNGS: The patient has decreased breath sounds bilateral with chest tube on the left side. ABDOMEN: Soft, nontender. Patient has bilateral edema of the extremity. Femorals are 1+. PLAN: Removal of the dialysis catheter and we have sent the tip for the culture. MMANA / GODFREYN: [id number] / MTDD
[2021-02-16 20:15] LABS: Glucose,Whole Blood 146 mg/dL (75-99)
[2021-02-16] MEDS: EZETIMIBE 10 MG TAB PO SCH (20:57)
[2021-02-17 06:00] LABS: Glucose,Whole Blood 194 mg/dL (75-99)
[2021-02-17] MEDS: SEVELAMER 800 MG TAB PO SCH ×4 (06:21→20:33)
[2021-02-17] MEDS: INSULIN ASPART (NovoLOG) 100 UNIT/ML VIAL SQ SCH ×4 (06:21→20:33)
[2021-02-17] MEDS: ALBUTEROL NEBULIZED 2.5 MG/3 ML INHALATION SCH ×4 (08:03→19:40)
[2021-02-17 08:35] LABS: Potassium 4.4 mmol/L (3.5-5.1)
[2021-02-17] MEDS: CYANOCOBALAMIN 500 MCG TAB PO SCH (08:47)
[2021-02-17] MEDS: ASCORBIC ACID 500 MG TAB PO SCH (08:48)
[2021-02-17] MEDS: FOLIC ACID-VIT B COMPLEX-VIT C 1 CAP PO SCH (08:48)
[2021-02-17] MEDS: NYSTATIN 100,000UNIT/GM CREAM 30 GM TUBE TOPICAL SCH ×2 (08:48→20:36)
[2021-02-17] MEDS ORDERED: VANCOMYCIN 1,500 MG in SODIUM CHLORIDE 0.9% 250 ML IVPB ONE (10:00)
--- NOTE | 2021-02-17 10:17 | P.PN ---
Subjective Progress Note Date: 02/17/21 Principal diagnosis: Pericardial effusion, bilateral pleural effusion, left greater than right, acute on chronic hypoxic respiratory failure, bacteremia with enterococcus faecalis, UTI. Previous medical history of end-stage renal disease on hemodialysis, chronic atrial fibrillation on Eliquis for anticoagulation, permanent pacemaker, COPD on 4 L home oxygen, diabetes, hypertension, hyperlipidemia, TIA in 2019, recent history of fall POD #1 pericardiocentesis with placement of pigtail drain Patient's currently laying in bed in no acute distress. States her shortness of breath is a bit better, denies any pain. Pigtail drain was placed at the bedside into the pericardial sac yesterday by Dr. Dubois, 300 mL bloody fluid removed. Patient is scheduled to undergo thoracentesis today. No other new concerns. Objective - Vital Signs Vital signs: Vital Signs Temp 98.0 F 02/17/21 08:45 Pulse 61 02/17/21 08:45 Resp 18 02/17/21 08:45 BP 96/48 02/17/21 08:45 Pulse Ox 98 02/17/21 08:45 Intake & Output 02/16/21 02/17/21 02/17/21 18:59 06:59 18:59 Intake Total 100 0 Output Total 540 Balance -440 0 Weight 90 kg Intake: Intake, IV Titration 100 Amount cefTRIAXone 1 gm In 100 Sodium Chloride 0.9% 50 ml @ 100 mls/hr IVPB Q24H [facility] Rx#:[id number] Oral 0 Output: Drainage 540 Lower Chest 540 Other: Voiding Method Incontinent Incontinent Incontinent # Voids 1 1 # Bowel Movements 1 - Exam CONSTITUTIONAL: Appears comfortable, cooperative, no acute distress RESPIRATORY: Lungs sounds diminished bilaterally. Respirations even, nonlabored. Currently on 4 L nasal cannula with oxygen saturation 98%. CARDIOVASCULAR: S1, S2 present. Irregular rate and rhythm, V paced on telemetry. Palpable peripheral pulses bilaterally. Bilateral lower extremity edema present. No calf pain or tenderness noted. GASTROINTESTINAL: Abdomen soft, nontender, nondistended. Active bowel sounds present 4 quadrants. GENITOURINARY: Incontinent of urine INTEGUMENTARY: Skin is warm and dry. NEUROLOGIC: Cranial nerves II through XII intact MUSKULOSKELETAL: Able to move all extremities, strength equal bilaterally PSYCHIATRIC: Alert, oriented to person and time, flat affect INVASIVE LINES AND TUBES: Midline pericardial pigtail catheter present, 300 mL bloody drainage total in chest tube chamber - Allied health notes Allied health notes reviewed: nursing - Labs CBC & Chem 7: 02/16/21 10:10 02/17/21 07:59 Labs: Abnormal Lab Results - Last 24 Hours (Table) 02/16/21 02/16/21 02/16/21 Range/Units 10:10 11:46 17:07 PT 16.0 H (9.0-12.0) sec INR 1.6 H (<1.2) Carbon Dioxide (22-30) mmol/L BUN (7-17) mg/dL Creatinine (0.52-1.04) mg/dL Glucose (74-99) mg/dL POC Glucose (mg/dL) 242 H 134 H (75-99) mg/dL 02/16/21 02/17/21 02/17/21 Range/Units 20:14 05:58 07:59 PT (9.0-12.0) sec INR (<1.2) Carbon Dioxide 17 L (22-30) mmol/L BUN 33 H (7-17) mg/dL Creatinine 4.10 H (0.52-1.04) mg/dL Glucose 182 H (74-99) mg/dL POC Glucose (mg/dL) 146 H 194 H (75-99) mg/dL Microbiology - Last 24 Hours (Table) 02/16/21 18:09 Catheter Tip Culture - Preliminary Catheter Tip 02/14/21 18:30 Blood Culture - Preliminary Blood No Growth after 48 hours 02/14/21 18:30 Blood Culture Gram Stain - Preliminary Blood Blood Culture - Preliminary Enterococcus faecalis Assessment and Plan Assessment: 1. Pericardial effusion, status post pericardiocentesis with removal of 300 mL of bloody fluid 2. Bilateral pleural effusion, left greater than right 3. Acute on chronic hypoxic respiratory failure, secondary to above 4. Bacteremia with enterococcus faecalis, UTI 5. End-stage renal disease on hemodialysis 6. Chronic atrial fibrillation on Eliquis for anticoagulation, last dose 02/14/2021 7. Permanent pacemaker 8. COPD on 4 L home oxygen 9. Diabetes 10. History of hypertension, hypotensive this admission during dialysis not requiring any pressors 11. History of hyperlipidemia 12. History of TIA in 2019 13. Recent history of fall Plan: 1. Continue pericardial drain for another 24 hours 2. Patient scheduled to undergo thoracentesis today 3. After thoracentesis later today or first thing tomorrow limited echocardiogram to be completed 4. Continue current medical therapy as prescribed by primary care, cardiology, nephrology, infectious disease 5. More recommendations to follow Time with Patient: Greater than 30
--- NOTE | 2021-02-17 10:54 | P.PN ---
Subjective Patient is seen in follow-up for end-stage renal disease. She is maintained on hemodialysis on Saturday schedule. Blood culture positive for enterococcus facialis. She is on IV antibiotics. Patient has no active complaints however she is not a reliable historian. Dialysis catheter was removed February 16. Vital signs are stable. General: The patient appeared well nourished and normally developed. HEENT: Head exam is unremarkable. On nasal cannula. LUNGS: Breath sounds decreased. HEART: Rate and Rhythm are regular. ABDOMEN: Soft, no distention. EXTREMITITES: No edema. Objective - Vital Signs Vital signs: Vital Signs Temp 98.0 F 02/17/21 08:45 Pulse 60 02/17/21 10:47 Resp 16 02/17/21 10:47 BP 95/59 02/17/21 10:47 Pulse Ox 100 02/17/21 10:47 Intake & Output 02/16/21 02/17/21 02/17/21 18:59 06:59 18:59 Intake Total 100 0 Output Total 540 Balance -440 0 Weight 90 kg Intake: Intake, IV Titration 100 Amount cefTRIAXone 1 gm In 100 Sodium Chloride 0.9% 50 ml @ 100 mls/hr IVPB Q24H [facility] Rx#:[id number] Oral 0 Output: Drainage 540 Lower Chest 540 Other: Voiding Method Incontinent Incontinent Incontinent # Voids 1 1 # Bowel Movements 1 - Labs CBC & Chem 7: 02/16/21 10:10 02/17/21 07:59 Labs: Abnormal Lab Results - Last 24 Hours (Table) 02/16/21 02/16/21 02/16/21 Range/Units 10:10 11:46 17:07 PT 16.0 H (9.0-12.0) sec INR 1.6 H (<1.2) Carbon Dioxide (22-30) mmol/L BUN (7-17) mg/dL Creatinine (0.52-1.04) mg/dL Glucose (74-99) mg/dL POC Glucose (mg/dL) 242 H 134 H (75-99) mg/dL 02/16/21 02/17/21 02/17/21 Range/Units 20:14 05:58 07:59 PT (9.0-12.0) sec INR (<1.2) Carbon Dioxide 17 L (22-30) mmol/L BUN 33 H (7-17) mg/dL Creatinine 4.10 H (0.52-1.04) mg/dL Glucose 182 H (74-99) mg/dL POC Glucose (mg/dL) 146 H 194 H (75-99) mg/dL Microbiology - Last 24 Hours (Table) 02/16/21 18:09 Catheter Tip Culture - Preliminary Catheter Tip 02/14/21 18:30 Blood Culture - Preliminary Blood No Growth after 48 hours 02/14/21 18:30 Blood Culture Gram Stain - Preliminary Blood Blood Culture - Preliminary Enterococcus faecalis Assessment and Plan Plan: Assessment: 1. End-stage renal disease maintained on hemodialysis on Saturday schedule via permacath. 2. Altered mental status likely from sepsis. 3. Enterococcus bacteremia with source being permacath most likely - discontinued February 16. D 4. Hyperkalemia secondary to chronic kidney disease and metabolic acidosis. Resolved. 5. Anemia of chronic kidney disease. Hemoglobin and cold. 6. Chronic kidney disease mineral bone disease maintained on Renvela. 7. Pericardial effusion status post pericardiocentesis. 8. Metabolic acidosis secondary to chronic kidney disease. Plan: Last hemodialysis was on February 16. Monitor vancomycin level. Target level near 15. Infectious disease following - Await clearance for new permacath insertion. Add oral sodium bicarbonate. Continue to check labs daily.
--- NOTE | 2021-02-17 11:13 | P.PCN ---
Date of Procedure: 02/17/21 Preoperative Diagnosis: left pleural effusion Procedure(s) Performed: thoracentesis Anesthesia: local Estimated Blood Loss (ml): 1 Condition: stable Disposition: no change Operative Findings: 560 cc serous sanguinous fluid
--- NOTE | 2021-02-17 11:31 | US ---
EXAMINATION TYPE: US thoracentesis DATE OF EXAM: 02/17/2021 COMPARISON: NONE HISTORY: Pleural effusion. FINDINGS: Maximal barrier technique was utilized. The skin overlying a suitable pocket of fluid was localized and the overlying skin prepped and draped. Lidocaine was used for local anesthesia. Ultras ound was used with sterile technique. A 5 [place] catheter over guide needle was advanced into the pl eural fluid collection using ultrasound guidance and the catheter advanced, needle removed. Approxim ately 0.6 liter(s) of serous sanguinous fluid was removed. Catheter was withdrawn and hemostasis ach ieved. There is no immediate complication. The patient discharged in stable condition without compl ication. IMPRESSION: STATUS POST ULTRASOUND GUIDED THORACENTESIS, POST PROCEDURE CHEST X-RAY PENDING. THIS [place] OCEDURE WAS PERFORMED BY THE UNDERSIGNED. Specimen sent for laboratory analysis.
--- NOTE | 2021-02-17 11:43 | XR ---
EXAMINATION TYPE: XR chest 1V portable DATE OF EXAM: 02/17/2021 COMPARISON: 02/16/2021 HISTORY: Status post left thoracentesis TECHNIQUE: Single frontal view of the chest is obtained. FINDINGS: Interval decrease in left pleural effusion. Left basilar pleural-parenchymal disease is seen. There i s prominence of the right interstitium. Interval removal of right dialysis catheter. Left pleural catheter is in place. Enlargement of the cardiac silhouette is again seen with pacer leads. IMPRESSION: Interval decrease in left pleural effusion and removal of right dialysis catheter. Otherw ise, no change since prior exam.
[2021-02-17 11:57] LABS: Glucose,Whole Blood 206 mg/dL (75-99)
[2021-02-17] MEDS: SODIUM BICARBONATE TAB 650 MG TAB PO SCH ×3 (12:12→20:33)
[2021-02-17] MEDS: ACETAMINOPHEN TAB 325 MG TAB PO PRN (13:33)
--- NOTE | 2021-02-17 14:08 | P.PN ---
Subjective Progress Note Date: 02/17/21 Principal diagnosis: Bilateral pleural effusion, left greater than right, pericardial effusion, status post pericardiocentesis On 02/17/2021 patient seen in follow-up on selective care unit, patient is status post pericardiocentesis with placement of a pigtail drain, postoperative day #2, and bilateral pleural effusions, left greater than right, status post left thoracentesis by interventional radiology with removal of 560 mL of pleural fluid. Follow-up chest x-ray after the procedure showed improvement in aeration of the left lung. Patient is currently on 4 L of oxygen, and his pulse ox is 97-100%, hemodynamically stable, he is afebrile. Patient's blood culture was p ositive for Enterococcus faecalis patient is on Rocephin for antibiotic coverage, there was a concern for possibly infected permacath which was removed, and catheter tip cultures have been ordered. Patient was initially covered with vancomycin, ID service is following and current abiotic coverage is just with Rocephin. he is breathing comfortably, he is more awake and alert on today's exam, no chest pain, no abdominal pain, no nausea or vomiting. No diarrhea. Objective - Vital Signs Vital signs: Vital Signs Temp 98.2 F 02/17/21 12:00 Pulse 64 02/17/21 12:00 Resp 16 02/17/21 12:00 BP 126/75 02/17/21 12:00 Pulse Ox 97 02/17/21 12:00 Intake & Output 02/16/21 02/17/21 02/17/21 18:59 06:59 18:59 Intake Total 100 0 Output Total 540 Balance -440 0 Weight 90 kg Intake: Intake, IV Titration 100 Amount cefTRIAXone 1 gm In 100 Sodium Chloride 0.9% 50 ml @ 100 mls/hr IVPB Q24H [facility] Rx#:[id number] Oral 0 Output: Drainage 540 Lower Chest 540 Other: Voiding Method Incontinent Incontinent Incontinent # Voids 1 1 # Bowel Movements 1 - Exam GENERAL EXAM: Alert, very pleasant, 75-year-old white male, on 4 L of oxygen and pulse ox of 97-100% comfortable in no apparent distress. HEAD: Normocephalic/atraumatic. EYES: Normal reaction of pupils, equal size. Conjunctiva pink, sclera white. NOSE: Clear with pink turbinates. THROAT: No erythema or exudates. NECK: No masses, no JVD, no thyroid enlargement, no adenopathy. CHEST: No chest wall deformity. Symmetrical expansion. LUNGS: Equal air entry with diminished breath sounds at the bases CVS: Regular rate and rhythm, normal S1 and S2, no gallops, no murmurs, no rubs ABDOMEN: Soft, nontender. No hepatosplenomegaly, normal bowel sounds, no guarding or rigidity. EXTREMITIES: No clubbing, no edema, no cyanosis, 2+ pulses and upper and lower extremities. MUSCULOSKELETAL: Muscle strength and tone normal. SPINE: No scoliosis or deformity SKIN: No rashes CENTRAL NERVOUS SYSTEM: Alert and oriented -3. No focal deficits, tone is normal in all 4 extremities. PSYCHIATRIC: Alert and oriented -3. Appropriate affect. Intact judgment and insight. - Labs CBC & Chem 7: 02/16/21 10:10 02/17/21 07:59 Labs: Abnormal Lab Results - Last 24 Hours (Table) 02/16/21 02/16/21 02/17/21 Range/Units 17:07 20:14 05:58 Carbon Dioxide (22-30) mmol/L BUN (7-17) mg/dL Creatinine (0.52-1.04) mg/dL Glucose (74-99) mg/dL POC Glucose (mg/dL) 134 H 146 H 194 H (75-99) mg/dL 02/17/21 02/17/21 Range/Units 07:59 11:42 Carbon Dioxide 17 L (22-30) mmol/L BUN 33 H (7-17) mg/dL Creatinine 4.10 H (0.52-1.04) mg/dL Glucose 182 H (74-99) mg/dL POC Glucose (mg/dL) 206 H (75-99) mg/dL Microbiology - Last 24 Hours (Table) 02/16/21 10:10 Blood Culture - Preliminary Blood No Growth after 24 hours 02/16/21 18:09 Catheter Tip Culture - Preliminary Catheter Tip 02/14/21 18:30 Blood Culture - Preliminary Blood No Growth after 48 hours 02/14/21 18:30 Blood Culture Gram Stain - Preliminary Blood Blood Culture - Preliminary Enterococcus faecalis Assessment and Plan Plan: Assessment: #1. Pericardial effusion, status post pericardiocentesis would removal of 300 mL of bloody fluid, postoperative day number 2 #2. Lateral pleural effusions, left greater than right, status post left thoracentesis by interventional radiology today on 02/17/2021 and removal of 560 cc of pleural fluid which was sent for analysis #3. Enterococcus faecalis bacteremia, was on Rocephin and vancomycin, currently just on Rocephin, ID service is following #4. Status post removal of right permacath, cath tip was sent for culture #5. Acute on chronic hypoxic respiratory failure secondary to sepsis, pericardial effusion, and bilateral pleural effusions #6. End-stage renal disease on hemodialysis #7. Chronic A. fib on Eliquis #8. Permanent pacemaker #9. COPD on home oxygen at 4 L #10. Diabetes mellitus type 2 #11. History of hypertension #12. History of hyperlipidemia #13. History of TIA in 2019 #14. Recent history of a fall Plan: Antibiotics per ID service recommendations FiO2 is currently at 4 L, may continue weaning as tolerated Breathing is stable Awaiting results of follow-up blood cultures, pleural fluid cultures and pleural fluid analysis Overall patient is improved, we'll continue to follow I performed a history & physical examination of the patient and discussed their management with my nurse practitioner, Mallorie Zavala. I reviewed the nurse practitioner's note and agree with the documented findings and plan of care. Lung sounds are positive for diminished breath sounds. The findings and the impression was discussed with the patient. I attest to the documentation by the nurse practitioner. Time with Patient: Less than 30
[2021-02-17] MEDS: CALCIUM CARBONATE 500 MG CHEWABLE PO PRN (14:11)
--- NOTE | 2021-02-17 14:24 | P.PN ---
Progress Note - Text Progress Note Date: 02/17/21 Chief Complaint: Short of breath History of presenting complaint: This is a 75-year-old patient who follows with Dr. Jp Brooks. Patient is resident of [facility] from where she was transferred to [facility]. Chronic stable medical conditions include CHF, end-stage kidney disease on hemodialysis TTS, atrial fibrillation, permanent pacemaker, GERD. COPD. On 4 L of oxygen at baseline. Patient just recently was at [facility] following a head trauma. Laying down which she was carried out. At her baseline patient is AO 2. Patient was transferred to [facility] as patient had become a bit confused. Normally on 4 L of oxygen she is oxygen is a 90% but dropped down to 80s. Computed tomography scan of the head was unremarkable. Chest x-rays shown pleural effusion. Also patient was started on ciprofloxacin for recent UTI. I saw the patient in the ER this afternoon. She does not want to be here she says. Patient not a good historian. Nephrology and pulmonary were consulted. Patient is short of breath. Slight cough. Not sure about fever. Blood cultures positive for Enterococcus faecalis. Pericardiocentesis done with 3 units cc of bloody fluid removed. Pigtail catheter placed. Hemodialysis catheter removed because of infection February 15: ICU: Yesterday evening during hemodialysis patient had an episode of hypotension bradycardia.A team was called out. There was a slight change in mental status. Recovered. Patient is moved to the ICU. Patient's significant other is in the room. Today. Patient on clear liquids. Ultrasound marking for the left pleural effusion has been done. Consultation to cardiology, neurology's been done. EEG ordered. Blood cultures growing gram- positive cocci in cultures. Given vancomycin February 16: 2-D echocardiogram which showed a large generalized pericardial effusion. Today Dr. Dubois from cardiothoracic surgery did pericardiocentesis: 300 mL of bloody fluid was obtained. Pigtail catheter was placed. D POA at the bedside. Patient tired. Has not eaten today. Hemodialysis today. Following that the hemodialysis catheter will be removed by Dr. Pearl. 5 60 mL of left- sided sanguinous fluid removed from the left side February 17: Patient more awake. Reclining in bed. Declining food. Significant other at the bedside. Less short of breath. Pigtail catheter to drain Review of systems: Was done for constitutional, cardiovascular, GI, pulmonary. relevant finding as above Active Medications Acetaminophen (Acetaminophen Tab 325 Mg Tab) 650 mg PO Q6HR PRN PRN Reason: Mild Pain or Fever > 100.5 Last Admin: 02/17/21 13:33 Dose: 650 mg Documented by: Al Hydroxide/Mg Hydroxide (Mag Hydrox/Al Hydrox/Simeth 30 Ml Cup) 10 ml PO Q4H PRN PRN Reason: Indigestion Albuterol Sulfate (Albuterol Nebulized 2.5 Mg/3 Ml) 2.5 mg INHALATION RT-QID [facility] Last Admin: 02/17/21 12:18 Dose: Not Given Documented by: Ascorbic Acid (Ascorbic Acid 500 Mg Tab) 500 mg PO DAILY [facility] Last Admin: 02/17/21 08:48 Dose: 500 mg Documented by: Calcium Carbonate/Glycine (Calcium Carbonate 500 Mg Chewable) 1,000 mg PO Q4HR PRN PRN Reason: Dyspepsia Last Admin: 02/17/21 14:11 Dose: 1,000 mg Documented by: Cyanocobalamin (Cyanocobalamin 500 Mcg Tab) 1,000 mcg PO DAILY [facility] Last Admin: 02/17/21 08:47 Dose: 1,000 mcg Documented by: Ezetimibe (Ezetimibe 10 Mg Tab) 10 mg PO HS [facility] Last Admin: 02/16/21 20:57 Dose: 10 mg Documented by: Ceftriaxone Sodium 1 gm/ (Sodium Chloride) 50 mls @ 100 mls/hr IVPB Q24H [facility] Last Admin: 02/16/21 20:55 Dose: 100 mls/hr Documented by: Insulin Aspart (Insulin Aspart (Novolog) 100 Unit/Ml Vial) 0 unit SQ ACHS [facility]; Protocol Last Admin: 02/17/21 12:12 Dose: 3 unit Documented by: Lactulose (Lactulose 20 Gm/30 Ml Cup) 20 gm PO DAILY PRN PRN Reason: Constipation Magnesium Hydroxide (Magnesium Hydroxide 2,400 Mg/10 Ml Cup) 2,400 mg PO Q24H PRN PRN Reason: Constipation Midodrine (Midodrine 5 Mg Tab) 10 mg PO TuThSa@0900 [facility] Last Admin: 02/16/21 10:37 Dose: 10 mg Documented by: Miscellaneous Information ([facility] 1 each MISCELLANE DIRECTED PRN; Protocol PRN Reason: Per Protocol Multivit/Ca Carb/B Cmplx/FA/Prenat (Folic Acid-Vit B Complex-Vit C 1 Cap) 1 each PO DAILY [facility] Last Admin: 02/17/21 08:48 Dose: 1 each Documented by: Naloxone HCl (Naloxone 0.4 Mg/Ml 1 Ml Vial) 0.2 mg IV Q2M PRN PRN Reason: Opioid Reversal Nystatin (Nystatin 100,000unit/Gm Cream 30 Gm Tube) 1 applic TOPICAL BID [facility]; Protocol Last Admin: 02/17/21 08:48 Dose: 1 applic Documented by: Ondansetron HCl (Ondansetron 4 Mg/2 Ml Vial) 4 mg IVP Q8HR PRN PRN Reason: Nausea And Vomiting Sevelamer Carbonate (Sevelamer 800 Mg Tab) 800 mg PO ACHS [facility] Last Admin: 02/17/21 12:12 Dose: 800 mg Documented by: Sodium Bicarbonate (Sodium Bicarbonate Tab 650 Mg Tab) 650 mg PO TID [facility] Last Admin: 02/17/21 12:12 Dose: 650 mg Documented by: Past medical history to include: Atrial fibrillation, asthma, CHF, diabetes, DVT, GERD, hypertension, hyperlipidemia, osteomyelitis discitis, end-stage kidney disease with hemodialysis, TIA, permanent pacemaker, more disorder. Oxygen 4-4 L Social history: No history of smoking or alcohol. Currently at [facility] Family history: Rheumatic fever, [place] Physical examination: VITAL SIGNS: 98.2, 64, 16, 1 26 x 35, 87% on 4 L GENERAL:, Landing bed, more awake less tired EYES: Pupils equal. Conjunctiva normal. HEENT: External appearance of nose and ears normal, oral cavity grossly normal. NECK: JVD unable to assess; masses not palpable. HEART: First and second heart sounds are normal; some edema. LUNGS:[ Respiratory rate increased, diminished breath sounds. ABDOMEN: Soft, nontender, liver spleen not palpable, no masses palpable. PSYCH: Answering simple questions INVESTIGATIONS, reviewed in the clinical context: February 17: Potassium 4.4 February 16: INR 1.6 TSH 3.8 February 15: WBC 22.8 hemoglobin 10.3 potassium 3.9 BUN 37 creatinine 4.23 2-D echocardiogram: EF 50-55% large generalized pericardial effusion Blood culture [February 14]: Enterococcus faecalis [Labs from [facility]] WBC 20.4 hemoglobin 10.2 platelets 453 sodium 133 potassium 5.5 BUN 56 crit and 6.7 ALT, AST both normal bilirubin 0.5 albumin 3.7 Troponin I 0.015 Computed tomography scan of the head reportedly negative EKG tracing personally reviewed by me-atrial flutter fibrillation with intraventricular block pattern Chest x-ray film personally reviewed by me-cardiomegaly, trachea pole to the right, pleural effusion Assessment and plan: -Acute hypoxic respiratory failure from large pleural effusion Could be from inadequate hemodialysis and/or CHF. Patient underwent [id number] hemodialysis and left thoracentesis -Chronic hypoxic respiratory failure on 4 L of oxygen -Bacteremia Enterococcus faecalis Vancomycin. Hemodialysis catheter removed -Large pericardial effusion: February 16: Pericardiocentesis of 300 mL of bloody fluid, Pigtail catheter. -End-stage kidney disease on hemodialysis, TTS Hemodialysis today -Large left pleural effusion, sanguinous 560 mL removed on February 16 -Persistent atrial flutter fibrillation Continue eliquis -Acute UTI with cystitis, IV ceftriaxone. Culture pending -Diabetes mellitus type 2, chronically on insulin Follow Accu-Cheks. -Chronic hypotension Patient is on midodrine -Chronic medical debility -Acute delirium from hypoxia/hypoxic encephalopathy: Improved Follow with neurology. EEG. -Underlying cognitive impairment -Permanent pacemaker -Full code -Patient has Kamar RYAN Continue with IV vancomycin, ceftriaxone. Other medications to continue. Prognosis remains guarded. Prognosis guarded
--- NOTE | 2021-02-17 15:21 | PN ---
PROGRESS NOTE Ms. Paul is a 75-year-old female with end-stage renal disease, who presented with hypotension during dialysis. She underwent a pericardiocentesis by Dr. Dubois. She is feeling better overall. She is slightly more awake. She denies any chest discomfort. She denies any dizziness. She denies any palpitation. She underwent thoracentesis as well. She has positive Enterococcus faecalis bacteremia and her and dialysis catheter was removed. She continues to be at this time on Zetia 10 mg daily, midodrine, ( ), vancomycin. Her anticoagulation is on hold to put a new dialysis catheter. PHYSICAL EXAMINATION: Her blood pressure is running in the 120s with a heart rate in the 60s. Lungs: Mild decrease in breath sounds, no wheezes. Heart: S1-S2. No S3, no rub. Abdomen: Soft, nontender. Extremities: No significant edema. LAB DATA: Lab data revealed a BUN and creatinine 33 and 4.1, potassium 4.4. IMPRESSION: 1. Pericardiocentesis for pericardial effusion with no tamponade. 2. Status post thoracentesis. 3. End-stage renal disease. 4. Atrial fibrillation, anticoagulation on hold because of plan to place a dialysis catheter. 5. Respiratory failure, improving. 6. Positive Enterococcus faecalis bacteremia. 7. Status post permanent pacemaker implantation. 8. Hypertension. 9. Hyperlipidemia. RECOMMENDATION: From the cardiac standpoint, I will obtain a repeat ultrasound of the heart tomorrow to evaluate the pericardial effusion. Otherwise, we will initiate the anticoagulation when it is agreeable with the surgeon. Depending on her progress further recommendation will be made. MMODL / IJN: [id number] /
[2021-02-17 16:57] LABS: Glucose,Whole Blood 255 mg/dL (75-99)
--- NOTE | 2021-02-17 17:33 | ECHOF ---
Referral Reason:pericardial effusion MEASUREMENTS -------- HEIGHT: 160.0 cm WEIGHT: 89.8 kg BP: RAP: 5.00 mmHg RVSP: 59.61 mmHg FINDINGS -------- Sinus rhythm. Limited Study Overall left ventricular systolic function is normal with, an EF between 60 - 65 %. Moderate tricuspid regurgitation present. There is severe pulmonary hypertension. The right ventr icular systolic pressure, as measured by Doppler, is 59.61mmHg. There is a trivial pericardial effusion present. CONCLUSIONS -------- 1. Limited Study 2. Overall left ventricular systolic function is normal with, an EF between 60 - 65 %. 3. Moderate tricuspid regurgitation present. 4. There is severe pulmonary hypertension. 5. The right ventricular systolic pressure, as measured by Doppler, is 59.61mmHg. 6. There is a trivial pericardial effusion present. CHECKROOM ATTENDANT: Lea Gallardo RDCS
--- NOTE | 2021-02-17 17:38 | EEG ---
ELECTROENCEPHALOGRAM REPORT DATE OF SERVICE: 02/17/2021 CLINICAL HISTORY: This is a 75-year-old woman with altered mental status. The video EEG is obtained to evaluate for seizure epileptiform activity. RELEVANT MEDICATIONS: The patient is not on any antiepileptic drugs. EEG TYPE: A routine 21 channel EEG is performed with video using the 10/20 electrode placement system. DESCRIPTION: Awake state is only obtained. During wakefulness, the background consists of low to moderate voltage of 4-5 hertz nonrhythmic theta activity and at times it gets up to 6 hertz theta activity. There is no sleep architecture seen. There is no focal slowing appreciated. There is moderate to significant diffuse myogenic artifact. Interictal and ictal: None. ACTIVATION PROCEDURE: Photic stimulation and hyperventilation not performed. CLINICAL INTERPRETATION: This is an abnormal routine EEG. The background slowing is suggestive of moderate to severe encephalopathy. There are no focal slowing, epileptiform discharges or seizures in the EEG. Clinical correlation is recommended. MAYA / DAYAMI: [id number] / MTDSilas
--- NOTE | 2021-02-17 17:55 | P.PN ---
Subjective Progress Note Date: 02/17/21 She was seen at bedside and no further events of passing out noted. She denies of any focal weakness, numbness. It is suspected the patient's blood culture was positive for Enterococcus faecalis and the was suspected the the infected site was the permacath which was removed and tip cultures has been ordered. Objective - Vital Signs Vital signs: Vital Signs Temp 98.4 F 02/17/21 16:15 Pulse 59 L 02/17/21 16:15 Resp 16 02/17/21 16:15 BP 118/77 02/17/21 16:15 Pulse Ox 95 02/17/21 16:15 Intake & Output 02/16/21 02/17/21 02/17/21 18:59 06:59 18:59 Intake Total 100 0 Output Total 540 Balance -440 0 Weight 90 kg 90 kg Intake: Intake, IV Titration 100 Amount cefTRIAXone 1 gm In 100 Sodium Chloride 0.9% 50 ml @ 100 mls/hr IVPB Q24H [facility] Rx#:[id number] Oral 0 Output: Drainage 540 Lower Chest 540 Other: Voiding Method Incontinent Incontinent Incontinent # Voids 1 1 # Bowel Movements 1 - Exam GENERAL: The patient is lying in bed and is not in acute distress. HENT: Has a large scar over the forehead (from a fall). NEUROLOGICAL: Higher mental function: The patient is awake, alert, oriented to self and place but not time. The patient is slow in responding. Patient is able to identify some objects (pen, watch and spoon). Patient is following commands. No aphasia and no neglect. Cranial nerves: The pupils are round, equal and reactive to light. Visual gaytan are hard to assess (this was tried multiple times). Extraocular movement and felt the pursuit is slow but no nystagmus is noted in all directions. Facial sensation is normal to touch throughout. The facial strength is subtle left nasolabial falttening. Hearing is mildly to moderately decreased bilaterally to hand rub. Tongue is midline and moved [id number] without any difficulty. No dysarthria is noted. Shoulder shrug is antigravity bilaterally. Motor: Gait is deferred. The strength is moving all extremities above gravity. Sensation: Sensation is normal to touch throughout. Reflexes (right/left): 2+ throughout. Plantars is right plantar is upgoing at baseline while left is mute. WORK-UP CT of the head is reported as age-related atrophic and chronic small vessel ischemic change without acute intracranial process seen at this time. TSH is 3.860 which is considered within normal limits Hemoglobin A1c is 5.8 which is within normal limits. - Labs CBC & Chem 7: 02/16/21 10:10 02/17/21 07:59 Labs: Abnormal Lab Results - Last 24 Hours (Table) 02/16/21 02/16/21 02/17/21 Range/Units 17:07 20:14 05:58 Carbon Dioxide (22-30) mmol/L BUN (7-17) mg/dL Creatinine (0.52-1.04) mg/dL Glucose (74-99) mg/dL POC Glucose (mg/dL) 134 H 146 H 194 H (75-99) mg/dL 02/17/21 02/17/21 Range/Units 07:59 11:42 Carbon Dioxide 17 L (22-30) mmol/L BUN 33 H (7-17) mg/dL Creatinine 4.10 H (0.52-1.04) mg/dL Glucose 182 H (74-99) mg/dL POC Glucose (mg/dL) 206 H (75-99) mg/dL Microbiology - Last 24 Hours (Table) 02/14/21 18:30 Blood Culture Gram Stain - Final Blood Blood Culture - Final Enterococcus faecalis 02/16/21 10:10 Blood Culture - Preliminary Blood No Growth after 24 hours 02/16/21 18:09 Catheter Tip Culture - Preliminary Catheter Tip 02/14/21 18:30 Blood Culture - Preliminary Blood No Growth after 48 hours Assessment and Plan Assessment: Episodes of falls is suspected due to bradycardia (It is suspected that patient pacemaker leads are misplaced) Altered mental status due to septic encephalopathy. Also has a component of some metabolic encephalopathy---mentation improving Underlying cognitive impairment Acute urinary tract infection End-stage renal disease on dialysis History of atrial fibrillation on pacemaker (was on eliquis) Diabetes mellitus Chronic hypoxic respiratory failure Plan: * Preliminary routine EEG on 02/17/2021: Is abnormal. The background slowing is suggestive of moderate to severely encephalopathy. There are no focal slowing , epileptiform discharges or seizure on the EEG. * Patient had vitamin B12 in our facility on 11/22/2020 and it was 273 which is considered low normal. She is on Vitamin B12 1000mcg daily. * She is also currently on folic acid 1 tab daily. * Please avoid hypotensive episode and we'll defer the management to the primary/ICU team. * IF possible obtain orthostatic vitals once patient is stable. * Upon reviewing the CT head, I felt the ventricles seems more dialed than her atrophy in my opinoin (I attempted to contact the reading radiologist but no response). Is concerning for normal pressure hydrocephalus. I recommend the patient follow-up with a neurologist and neurosurgeon as oupatient for large volume tap and assessing if any improvement and if there is consider [employer] shunt. * Infection disease team is on board * PT, OT and GEAR NICKER are consulted. * Will defer the rest of medical management to the primary and ICU team. UPDATE: I spoke with the patient's significant other (Kamar) who is at bedside and he notified me that patient has been wearing briefs for about 3 years but has a primary care provider and she is taken to bathroom without any issues. He stated that she Fell early this Month at half-way and they would not provide any information about the fall. He denies patient having recurrent of falls. She walks with a walker for few years but he does not notice any unsteady gait. Regarding co nfusion he stated he does not see a drastic change in the last couple years. I notified him about possible concern about Normal Pressure Hydrocephalus and he does not want to pursue with Large volume tap or any surgical intervention. There is no further neurological work-up. Neurology will sign off. Please reconsult if needed. Ricardo Najera M.D. Neuro-hospitalist Time with Patient: Less than 30
--- NOTE | 2021-02-17 18:17 | PN ---
PROGRESS NOTE DATE OF SERVICE: 02/17/2021 REASON FOR FOLLOWUP: Enterococcus faecalis bacteremia concerning for the catheter infection. INTERVAL HISTORY: Patient is afebrile. The patient is breathing comfortably. The patient denies having any chest pain, shortness of breath or cough. No abdominal pain or diarrhea. EXAMINATION: Blood pressure 119/67, pulse of 50, temperature 98.4, she is 95% on 4 L. GENERAL DESCRIPTION: The patient is an elderly female lying in bed no distress. RESPIRATORY SYSTEM: Unlabored breathing with decreased BS. No wheeze. HEART: S1, S2. Regular rate and rhythm. LABS: BUN of 33, creatinine 4.10. Vanco at 19.7. Blood cultures with Enterococcus faecalis that are sensitive pathogen. DIAGNOSTIC IMPRESSION AND PLAN: Patient with Enterococcus faecalis bacteremia, concern for possible ( ). has been discontinued. Repeat culture negative so far. Antibiotic adjusted to Unasyn as a sensitive pathogen and monitor clinical course closely. MMODL / IJN: [id number] /
[2021-02-17 20:01] LABS: Glucose,Whole Blood 425 mg/dL (75-99)
[2021-02-17] MEDS: EZETIMIBE 10 MG TAB PO SCH (20:32)
[2021-02-18 06:04] LABS: Glucose,Whole Blood 214 mg/dL (75-99)
[2021-02-18] MEDS: SEVELAMER 800 MG TAB PO SCH ×4 (06:58→21:07)
[2021-02-18] MEDS: INSULIN ASPART (NovoLOG) 100 UNIT/ML VIAL SQ SCH ×4 (06:58→20:14)
[2021-02-18 08:15] LABS: Potassium 4.1 mmol/L (3.5-5.1)
[2021-02-18] MEDS: ALBUTEROL NEBULIZED 2.5 MG/3 ML INHALATION SCH ×4 (08:24→19:15)
[2021-02-18] MEDS: FOLIC ACID-VIT B COMPLEX-VIT C 1 CAP PO SCH (09:21)
[2021-02-18] MEDS: ASCORBIC ACID 500 MG TAB PO SCH (09:21)
[2021-02-18] MEDS: CYANOCOBALAMIN 500 MCG TAB PO SCH (09:21)
[2021-02-18] MEDS: SODIUM BICARBONATE TAB 650 MG TAB PO SCH ×3 (09:21→21:07)
[2021-02-18] MEDS: MIDODRINE 5 MG TAB PO SCH (09:21)
[2021-02-18] MEDS: NYSTATIN 100,000UNIT/GM CREAM 30 GM TUBE TOPICAL SCH ×2 (09:22→20:14)
--- NOTE | 2021-02-18 10:33 | P.PN ---
Subjective Progress Note Date: 02/18/21 Principal diagnosis: This is a 75-year-old female with ESRD on dialysis Saturday had enterococcal bacteremia likely related to the permacath. Permacath was discon tinued 02/16/2021 after a dialysis on the day As she remains afebrile while signs are stable She is somewhat sleepy and does not want to be disturbed and says leave me alone. She is moving all her extremities. Last blood culture is positive on 02/14/2021, repeat blood cultures from 02/16 so far negative. She is afebrile Objective - Vital Signs Vital signs: Vital Signs Temp 98.2 F 02/18/21 09:20 Pulse 72 02/18/21 09:20 Resp 16 02/18/21 09:20 BP 87/37 02/18/21 09:20 Pulse Ox 97 02/18/21 09:20 Intake & Output 02/17/21 02/18/21 02/18/21 18:59 06:59 18:59 Intake Total 0 220 Balance 0 220 Weight 90 kg 69 kg Intake: IV 120 0.9 KVO 120 Oral 0 100 Other: Voiding Method Incontinent Incontinent # Voids 2 3 On examination sleepy arousable A chin exam no JVP neck is supple no facial asymmetry Lungs are clear to auscultation but poor air entry because of lack of cooperation Heart sounds are unremarkable no murmur was heard No rub Abdomen soft nontender Extremity exam was no edema Neurologically sleepy and resists getting out of her sleep and answering questions. - Labs CBC & Chem 7: 02/16/21 10:10 02/18/21 07:33 Labs: Abnormal Lab Results - Last 24 Hours (Table) 02/17/21 02/17/21 02/17/21 Range/Units 11:42 16:48 19:59 Carbon Dioxide (22-30) mmol/L BUN (7-17) mg/dL Creatinine (0.52-1.04) mg/dL Glucose (74-99) mg/dL POC Glucose (mg/dL) 206 H 255 H 425 H (75-99) mg/dL 02/18/21 02/18/21 Range/Units 06:02 07:33 Carbon Dioxide 21 L (22-30) mmol/L BUN 44 H (7-17) mg/dL Creatinine 5.05 H (0.52-1.04) mg/dL Glucose 192 H (74-99) mg/dL POC Glucose (mg/dL) 214 H (75-99) mg/dL Microbiology - Last 24 Hours (Table) 02/17/21 11:05 Gram Stain - Preliminary Pleural Fluid Body Fluid Culture - Preliminary 02/14/21 18:30 Blood Culture - Preliminary Blood No Growth after 72 hours 02/17/21 11:05 Anaerobic Culture - Preliminary Pleural Fluid 02/14/21 18:30 Blood Culture Gram Stain - Final Blood Blood Culture - Final Enterococcus faecalis 02/16/21 10:10 Blood Culture - Preliminary Blood No Growth after 24 hours Assessment and Plan Assessment: Impression 1. ESRD on dialysis Saturday with a permacath. 2. Enterococcal bacteremia from his permacath, permacath discontinued 02/16/2021, last dialysis 02/16/2021 3. Anemia of ESRD, hemoglobin is 10.3 on 02/14/2021 4. Off of dialysis labs are stable potassium is 4.1 bicarb is 21 BUN is 44 creatinines 5 as of this morning 5. Blood pressure controlled 6. Euvolemic Recommendation 1. Hold off dialysis. 2. If blood cultures are negative plan for peritoneal dialysis or hemodialysis 3. Maintain antibiotics 4. Check labs tomorrow for hyperkalemia
[2021-02-18 12:16] LABS: Glucose,Whole Blood 343 mg/dL (75-99)
--- NOTE | 2021-02-18 13:04 | P.PN ---
Subjective Progress Note Date: 02/18/21 Principal diagnosis: Bilateral pleural effusion, left greater than right, pericardial effusion, status post pericardiocentesis On 02/17/2021 patient seen in follow-up on selective care unit, patient is status post pericardiocentesis with placement of a pigtail drain, postoperative day #2, and bilateral pleural effusions, left greater than right, status post left thoracentesis by interventional radiology with removal of 560 mL of pleural fluid. Follow-up chest x-ray after the procedure showed improvement in aeration of the left lung. Patient is currently on 4 L of oxygen, and his pulse ox is 97-100%, hemodynamically stable, he is afebrile. Patient's blood culture was p ositive for Enterococcus faecalis patient is on Rocephin for antibiotic coverage, there was a concern for possibly infected permacath which was removed, and catheter tip cultures have been ordered. Patient was initially covered with vancomycin, ID service is following and current abiotic coverage is just with Rocephin. he is breathing comfortably, he is more awake and alert on today's exam, no chest pain, no abdominal pain, no nausea or vomiting. No diarrhea. On 02/18/2021 patient seen in follow-up on selective care unit. Patient is awake and alert, in no acute distress, she is on 3 L of oxygen, with a pulse ox of 97%. No worsening dyspnea at rest, she does have exertional dyspnea. No fever or chills. Patient is incontinent of urine, she does avoid, it urine output is difficult to estimate as the patient is incontinent. She remains on antibiotics in the form of ceftriaxone and vancomycin for enterococcus bacteremia, her follow-up blood cultures have shown no growth thus far, last set was sent on 02/16/2021, her permacath catheter was removed by vascular surgery and catheter tip has been sent for culture, reported on the cultures thus far, patient is status post left-sided thoracentesis, so far pleural fluid cultures remain negative. Patient is supposed to have a new hemodialysis catheter inserted today by vascular surgery. Objective - Vital Signs Vital signs: Vital Signs Temp 98.2 F 02/18/21 09:20 Pulse 72 02/18/21 11:54 Resp 16 02/18/21 09:20 BP 87/37 02/18/21 09:20 Pulse Ox 97 02/18/21 09:20 Intake & Output 02/17/21 02/18/21 02/18/21 18:59 06:59 18:59 Intake Total 0 220 720 Balance 0 220 720 Weight 90 kg 69 kg Intake: IV 120 0.9 KVO 120 Oral 0 100 720 Other: Voiding Method Incontinent Incontinent Incontinent # Voids 2 3 - Exam GENERAL EXAM: Alert, very pleasant, 75-year-old white male, on 3 L of oxygen and pulse ox of 97-100% comfortable in no apparent distress. HEAD: Normocephalic/atraumatic. EYES: Normal reaction of pupils, equal size. Conjunctiva pink, sclera white. NOSE: Clear with pink turbinates. THROAT: No erythema or exudates. NECK: No masses, no JVD, no thyroid enlargement, no adenopathy. CHEST: No chest wall deformity. Symmetrical expansion. LUNGS: Equal air entry with diminished breath sounds at the bases CVS: Regular rate and rhythm, normal S1 and S2, no gallops, no murmurs, no rubs ABDOMEN: Soft, nontender. No hepatosplenomegaly, normal bowel sounds, no guarding or rigidity. EXTREMITIES: No clubbing, no edema, no cyanosis, 2+ pulses and upper and lower extremities. MUSCULOSKELETAL: Muscle strength and tone normal. SPINE: No scoliosis or deformity SKIN: No rashes CENTRAL NERVOUS SYSTEM: Alert and oriented -3. No focal deficits, tone is normal in all 4 extremities. PSYCHIATRIC: Alert and oriented -3. Appropriate affect. Intact judgment and insight. - Labs CBC & Chem 7: 02/16/21 10:10 02/18/21 07:33 Labs: Abnormal Lab Results - Last 24 Hours (Table) 02/17/21 02/17/21 02/18/21 Range/Units 16:48 19:59 06:02 Carbon Dioxide (22-30) mmol/L BUN (7-17) mg/dL Creatinine (0.52-1.04) mg/dL Glucose (74-99) mg/dL POC Glucose (mg/dL) 255 H 425 H 214 H (75-99) mg/dL 02/18/21 02/18/21 Range/Units 07:33 12:04 Carbon Dioxide 21 L (22-30) mmol/L BUN 44 H (7-17) mg/dL Creatinine 5.05 H (0.52-1.04) mg/dL Glucose 192 H (74-99) mg/dL POC Glucose (mg/dL) 343 H (75-99) mg/dL Microbiology - Last 24 Hours (Table) 02/16/21 10:10 Blood Culture - Preliminary Blood No Growth after 48 hours 02/17/21 11:05 Gram Stain - Preliminary Pleural Fluid Body Fluid Culture - Preliminary 02/14/21 18:30 Blood Culture - Preliminary Blood No Growth after 72 hours 02/17/21 11:05 Anaerobic Culture - Preliminary Pleural Fluid 02/14/21 18:30 Blood Culture Gram Stain - Final Blood Blood Culture - Final Enterococcus faecalis Assessment and Plan Plan: Assessment: #1. Pericardial effusion, status post pericardiocentesis would removal of 300 mL of bloody fluid, postoperative day number 3 #2. Lateral pleural effusions, left greater than right, status post left thoracentesis by interventional radiology today on 02/17/2021 and removal of 560 cc of pleural fluid which was sent for analysis, pleural fluid cultures remain negative thus far, final culture is pending #3. Enterococcus faecalis bacteremia, was on Rocephin and vancomycin, currently just on Rocephin, ID service is following #4. Status post removal of right permacath, cath tip was sent for culture #5. Acute on chronic hypoxic respiratory failure secondary to sepsis, pericardial effusion, and bilateral pleural effusions #6. End-stage renal disease on hemodialysis #7. Chronic A. fib on Eliquis, Eliquis is currently on hold #8. Permanent pacemaker #9. COPD on home oxygen at 4 L #10. Diabetes mellitus type 2 #11. History of hypertension #12. History of hyperlipidemia #13. History of TIA in 2019 #14. Recent history of a fall Plan: Antibiotics per ID service recommendations FiO2 is currently at 3 L, may continue weaning as tolerated Breathing is stable No acute events overnight Echocardiogram results have been noted Eliquis remains on hold Patient is to have a new hemodialysis catheter placed today Denies any worsening dyspnea We'll continue to monitor I performed a history & physical examination of the patient and discussed their management with my nurse practitioner, Mallorie Zavala. I reviewed the nurse practitioner's note and agree with the documented findings and plan of care. Lung sounds are positive for diminished breath sounds. The findings and the impression was discussed with the patient. I attest to the documentation by the nurse practitioner. Time with Patient: Less than 30
--- NOTE | 2021-02-18 13:21 | PN ---
PROGRESS NOTE DATE OF SERVICE: 02/18/2021 REASON FOR FOLLOWUP: Enterococcus faecalis bacteremia secondary to PermCath infection. INTERVAL HISTORY: The patient is afebrile. The patient is breathing comfortably. Slightly more awake and alert. No chest pain or cough. No abdominal pain or diarrhea. PHYSICAL EXAMINATION: Her blood pressure is 87/37, pulse of 72, temperature 98.2, she is 97% on 3 liters nasal cannula. General description is an elderly female lying in no distress. Respiratory system: Unlabored breathing, decreased breath sounds at the base. No wheeze. Heart S1, S2. Regular rate. Abdomen is soft, no tenderness. LABS: BUN of 44, creatinine 5.05. Blood culture has been negative so far. DIAGNOSTIC IMPRESSION AND PLAN: Patient with Enterococcus faecalis bacteremia possible related to PermCath that has been discontinued. Blood culture repeat has been negative so far. If remains negative by Saturday, should be able to get another PermCath. Antibiotic in the form of Unasyn to continue. Partner at the bedside and he has multiple questions which were answered. MMODL / IJN: [id number] /
--- NOTE | 2021-02-18 14:00 | P.PN ---
Subjective Progress Note Date: 02/18/21 Principal diagnosis: Pericardial effusion, bilateral pleural effusion, left greater than right, acute on chronic hypoxic respiratory failure, bacteremia with enterococcus faecalis, UTI. Past medical history significant for end-stage renal disease on hemodialysis, chronic atrial fibrillation on Eliquis for anticoagulation, permanent pacemaker, COPD on 4 L home oxygen, diabetes, hypertension, hyperlipidemia, TIA in 2019, recent history of fall from standing. POD #2 pericardiocentesis with placement of pigtail drain. The patient was seen and examined today 02/18/2021 at her bedside on the cardiac stepdown unit. Currently she is laying in bed, he is alert with her eyes open, is oriented 1 to person and disoriented to place and time. Denies any complaints of pain or shortness of breath at this time. Pericardial pigtail catheter drain remains in place to low continuous wall suction -20 cm H2O. No drainage in the last 24 hours, initial drainage from pigtail catheter was 300 mL of serosanguineous drainage. A repeat limited 2-D echocardiogram was completed yesterday 02/17/2021 which demonstrated trivial pericardial effusion. Objective - Vital Signs Vital signs: Vital Signs Temp 97.6 F 02/18/21 13:00 Pulse 62 02/18/21 13:00 Resp 18 02/18/21 13:00 BP 108/57 02/18/21 13:00 Pulse Ox 98 02/18/21 13:00 Intake & Output 02/17/21 02/18/21 02/18/21 18:59 06:59 18:59 Intake Total 0 220 720 Balance 0 220 720 Weight 90 kg 69 kg Intake: IV 120 0.9 KVO 120 Oral 0 100 720 Other: Voiding Method Incontinent Incontinent Incontinent # Voids 2 3 - Exam CONSTITUTIONAL: Lying in bed on the cardiac stepdown unit, appears comfortable, cooperative, no apparent acute distress. HEENT: Neck is supple, no JVD, no lymphadenopathy. RESPIRATORY: Lungs sounds diminished to her bilateral bases. Respirations are symmetrical and nonlabored. Currently on 3 L nasal cannula with oxygen saturations 98%. CARDIOVASCULAR: Regular rhythm and rate. S1 and S2 present, negative for S3, gallop or murmur. Remote telemetry showing V paced rhythm heart rate 75 BPM GASTROINTESTINAL: Abdomen soft, nontender, nondistended. Obese. Active bowel sounds present 4 quadrants. Tolerating diet. Passing flatus. No guarding or rigidity. GENITOURINARY: Incontinent of urine. INTEGUMENTARY: Skin is warm and dry with no evidence of clubbing or cyanosis. Abrasion to forehead with Steri-Strips in place, clean dry and without redness. NEUROLOGIC: Cranial nerves II through XII intact. MUSKULOSKELETAL: Able to move all extremities, strength equal bilaterally, generalized weakness. Splint in place to her left wrist. PSYCHIATRIC: Alert and oriented to person, disoriented to place and time. Flat affect. INVASIVE LINES AND TUBES: Subxiphoid pericardial pigtail catheter present and connected to bedside Barre drainage system on low continuous suction -20 cm H2O. No air leak is present. No drainage in the last 24 hours. 300 mL of serosanguineous drainage total and the chest tube chamber. - Labs CBC & Chem 7: 02/16/21 10:10 02/18/21 07:33 Labs: Abnormal Lab Results - Last 24 Hours (Table) 02/17/21 02/17/21 02/18/21 Range/Units 16:48 19:59 06:02 Carbon Dioxide (22-30) mmol/L BUN (7-17) mg/dL Creatinine (0.52-1.04) mg/dL Glucose (74-99) mg/dL POC Glucose (mg/dL) 255 H 425 H 214 H (75-99) mg/dL 02/18/21 02/18/21 Range/Units 07:33 12:04 Carbon Dioxide 21 L (22-30) mmol/L BUN 44 H (7-17) mg/dL Creatinine 5.05 H (0.52-1.04) mg/dL Glucose 192 H (74-99) mg/dL POC Glucose (mg/dL) 343 H (75-99) mg/dL Microbiology - Last 24 Hours (Table) 02/16/21 10:10 Blood Culture - Preliminary Blood No Growth after 48 hours 02/17/21 11:05 Gram Stain - Preliminary Pleural Fluid Body Fluid Culture - Preliminary 02/14/21 18:30 Blood Culture - Preliminary Blood No Growth after 72 hours 02/17/21 11:05 Anaerobic Culture - Preliminary Pleural Fluid 02/14/21 18:30 Blood Culture Gram Stain - Final Blood Blood Culture - Final Enterococcus faecalis Assessment and Plan Assessment: 1. Pericardial effusion, status post pericardiocentesis with removal of 300 mL of bloody fluid, repeat limited 2-D echocardiogram completed which demonstrates trivial pericardial effusion 2. Bilateral pleural effusion, left greater than right, status post left thoracentesis performed by interventional radiology 3. Acute on chronic hypoxic respiratory failure, secondary to above 4. Bacteremia with enterococcus faecalis, UTI 5. End-stage renal disease on hemodialysis 6. Chronic atrial fibrillation on Eliquis for anticoagulation, last dose 0 02/14/2021 7. Permanent pacemaker 8. COPD on 4 L home oxygen 9. Diabetes 10. History of hypertension, hypotensive this admission during dialysis not requiring any pressors 11. History of hyperlipidemia 12. History of TIA in 2019 13. Recent history of fall from standing Plan: 1. Pericardial pigtail drain removed without incident. 2. Continue current medical therapy as prescribed by primary care, cardiology, nephrology, infectious disease. 3. We will continue to follow the patient on an as-needed basis, please call for any further questions. Time with Patient: Greater than 30
--- NOTE | 2021-02-18 14:16 | PN ---
PROGRESS NOTE Mrs. Paul is a 75-year-old female who presented with end-stage renal disease, had episode of hypotension. She was found to have evidence of pericardial and pleural effusion, underwent thoracocentesis. She is feeling better today. Her breathing is better. She denies any chest pain. No dizziness. No palpitation. She had left-sided thoracentesis as well. She had a new dialysis catheter introduced because of prior bacteremia. She denies any dizziness or palpitation. She denies any nausea. She continues to be at this time on albuterol, Zetia 10 mg daily, midodrine, sodium bicarb, vancomycin. PHYSICAL EXAMINATION: Her blood pressure is running in the 90s to 100s with a heart rate in the 60s. LUNGS with decreased breath sounds at the bases, no wheezes. HEART: Irregular regular S1, S2. No S3. ABDOMEN: Soft, nontender, obese. EXTREMITIES: No significant edema. LAB DATA: Lab data revealed BUN and creatinine of 44 and 5.05 potassium 4.1. IMPRESSION: 1. End-stage renal disease on hemodialysis status post placement of new dialysis catheter. 2. Positive blood cultures, negative so far. The patient is afebrile. 3. Pericardial effusion status post pericardiocentesis. 4. Pleural effusion. 5. Atrial fibrillation. RECOMMENDATIONS: At this time, if she is stable, I will resume her anticoagulation tomorrow. Follow her renal function. Increase her level of activity and depending on her progress, further recommendations will be made. MMLUCILLEL / GODFREYN: [id number] /
--- NOTE | 2021-02-18 14:22 | P.PN ---
Progress Note - Text Progress Note Date: 02/18/21 Chief Complaint: Short of breath History of presenting complaint: This is a 75-year-old patient who follows with Dr. Jp Brooks. Patient is resident of [facility] from where she was transferred to [facility]. Chronic stable medical conditions include CHF, end-stage kidney disease on hemodialysis TTS, atrial fibrillation, permanent pacemaker, GERD. COPD. On 4 L of oxygen at baseline. Patient just recently was at [facility] [place] following a head trauma. Laying down which she was carried out. At her baseline patient is AO 2. Patient was transferred to [facility] as patient had become a bit confused. Normally on 4 L of oxygen she is oxygen is a 90% but dropped down to 80s. Computed tomography scan of the head was unremarkable. Chest x-rays shown pleural effusion. Also patient was started on ciprofloxacin for recent UTI. I saw the patient in the ER this afternoon. She does not want to be here she says. Patient not a good historian. Nephrology and pulmonary were consulted. Patient is short of breath. Slight cough. Not sure about fever. Blood cultures positive for Enterococcus faecalis. Pericardiocentesis done with 3 units cc of bloody fluid removed. Pigtail catheter placed. Hemodialysis catheter removed because of infection February 15: ICU: Yesterday evening during hemodialysis patient had an episode of hypotension bradycardia.A team was called out. There was a slight change in mental status. Recovered. Patient is moved to the ICU. Patient's significant other is in the room. Today. Patient on clear liquids. Ultrasound marking for the left pleural effusion has been done. Consultation to cardiology, neurology's been done. EEG ordered. Blood cultures growing gram- positive cocci in cultures. Given vancomycin February 16: 2-D echocardiogram which showed a large generalized pericardial effusion. Today Dr. Dubois from cardiothoracic surgery did pericardiocentesis: 300 mL of bloody fluid was obtained. Pigtail catheter was placed. D POA at the bedside. Patient tired. Has not eaten today. Hemodialysis today. Following that the hemodialysis catheter will be removed by Dr. Pearl. 5 60 mL of left- sided sanguinous fluid removed from the left side February 17: Patient more awake. Reclining in bed. Declining food. Significant other at the bedside. Less short of breath. Pigtail catheter to drain February 18: Sitting up in bed. Awake. Pigtail catheter removed from the pericard ium. Had minimal drainage. Significant other at the bedside. Patient had about 50% of for breakfast. Review of systems: Was done for constitutional, cardiovascular, GI, pulmonary. relevant finding as above Active Medications Acetaminophen (Acetaminophen Tab 325 Mg Tab) 650 mg PO Q6HR PRN PRN Reason: Mild Pain or Fever > 100.5 Last Admin: 02/17/21 13:33 Dose: 650 mg Documented by: Al Hydroxide/Mg Hydroxide (Mag Hydrox/Al Hydrox/Simeth 30 Ml Cup) 10 ml PO Q4H PRN PRN Reason: Indigestion Albuterol Sulfate (Albuterol Nebulized 2.5 Mg/3 Ml) 2.5 mg INHALATION RT-QID [facility] Last Admin: 02/18/21 11:43 Dose: 2.5 mg Documented by: Ascorbic Acid (Ascorbic Acid 500 Mg Tab) 500 mg PO DAILY [facility] Last Admin: 02/18/21 09:21 Dose: 500 mg Documented by: Calcium Carbonate/Glycine (Calcium Carbonate 500 Mg Chewable) 1,000 mg PO Q4HR PRN PRN Reason: Dyspepsia Last Admin: 02/17/21 14:11 Dose: 1,000 mg Documented by: Cyanocobalamin (Cyanocobalamin 500 Mcg Tab) 1,000 mcg PO DAILY [facility] Last Admin: 02/18/21 09:21 Dose: 1,000 mcg Documented by: Ezetimibe (Ezetimibe 10 Mg Tab) 10 mg PO [facility] Last Admin: 02/17/21 20:32 Dose: 10 mg Documented by: Ampicillin Sodium/Sulbactam (Sodium 3 gm/ Sodium Chloride) 100 mls @ 200 mls/hr IVPB Q12HR [facility] Insulin Aspart (Insulin Aspart (Novolog) 100 Unit/Ml Vial) 0 unit SQ ACHS [facility]; Protocol Last Admin: 02/18/21 13:06 Dose: 6 unit Documented by: Lactulose (Lactulose 20 Gm/30 Ml Cup) 20 gm PO DAILY PRN PRN Reason: Constipation Magnesium Hydroxide (Magnesium Hydroxide 2,400 Mg/10 Ml Cup) 2,400 mg PO Q24H PRN PRN Reason: Constipation Midodrine (Midodrine 5 Mg Tab) 10 mg PO TuThSa@0900 [facility] Last Admin: 02/18/21 09:21 Dose: 10 mg Documented by: Multivit/Ca Carb/B Cmplx/FA/Prenat (Folic Acid-Vit B Complex-Vit C 1 Cap) 1 each PO DAILY [facility] Last Admin: 02/18/21 09:21 Dose: 1 each Documented by: Naloxone HCl (Naloxone 0.4 Mg/Ml 1 Ml Vial) 0.2 mg IV Q2M PRN PRN Reason: Opioid Reversal Nystatin (Nystatin 100,000unit/Gm Cream 30 Gm Tube) 1 applic TOPICAL BID [facility]; Protocol Last Admin: 02/18/21 09:22 Dose: 1 applic Documented by: Ondansetron HCl (Ondansetron 4 Mg/2 Ml Vial) 4 mg IVP Q8HR PRN PRN Reason: Nausea And Vomiting Sevelamer Carbonate (Sevelamer 800 Mg Tab) 800 mg PO ACHS [facility] Last Admin: 02/18/21 13:07 Dose: 800 mg Documented by: Sodium Bicarbonate (Sodium Bicarbonate Tab 650 Mg Tab) 650 mg PO TID [facility] Last Admin: 02/18/21 09:21 Dose: 650 mg Documented by: Past medical history to include: Atrial fibrillation, asthma, CHF, diabetes, DVT, GERD, hypertension, hyperlipidemia, osteomyelitis discitis, end-stage kidney disease with hemodialysis, TIA, permanent pacemaker, more disorder. Oxygen 4-4 L Social history: No history of smoking or alcohol. Currently at [facility] Family history: Rheumatic fever, [place] Physical examination: VITAL SIGNS: 97.6, 62, 18, 108/57, 98% on 3 L GENERAL:, Sitting up in bed, awake EYES: Pupils equal. Conjunctiva normal. HEENT: External appearance of nose and ears normal, oral cavity grossly normal. NECK: JVD unable to assess; masses not palpable. HEART: First and second heart sounds are normal; some edema. LUNGS:[ Respiratory rate increased, diminished breath sounds. ABDOMEN: Soft, nontender, liver spleen not palpable, no masses palpable. PSYCH: Answering simple questions CHEST wall: Dressing right infraclavicular over the removed dialysis catheter site. INVESTIGATIONS, reviewed in the clinical context: February 18: Potassium 4.1 February 17: Potassium 4.4 EEG: No epilepsy activity noted. Encephalopathic findings February 16: INR 1.6 TSH 3.8 February 15: WBC 22.8 hemoglobin 10.3 potassium 3.9 BUN 37 creatinine 4.23 2-D echocardiogram: EF 50-55% large generalized pericardial effusion Blood culture [February 14]: Enterococcus faecalis [Labs from [facility]] WBC 20.4 hemoglobin 10.2 platelets 453 sodium 133 potassium 5.5 BUN 56 crit and 6.7 ALT, AST both normal bilirubin 0.5 albumin 3.7 Troponin I 0.015 Computed tomography scan of the head reportedly negative EKG tracing personally reviewed by me-atrial flutter fibrillation with intraventricular block pattern Chest x-ray film personally reviewed by me-cardiomegaly, trachea pole to the right, pleural effusion Assessment and plan: -Acute hypoxic respiratory failure from large pleural effusion Combination of inadequate hemodialysis and/or CHF. Patient underwent [id number] hemodialysis and left thoracentesis. -Chronic hypoxic respiratory failure on 4 L of oxygen -Bacteremia Enterococcus faecalis Vancomycin. Hemodialysis catheter removed -Large pericardial effusion: February 16: Pericardiocentesis of 300 mL of bloody fluid, Pigtail catheter-removed February 18. -End-stage kidney disease on hemodialysis, TTS Hemodialysis . New PermCath placement on Saturday -Large left pleural effusion, sanguinous Thoracentesis 560 mL removed on February 16 -Persistent atrial flutter fibrillation Continue eliquis -Acute UTI with cystitis, IV ceftriaxone.-Completed -Diabetes mellitus type 2, chronically on insulin Follow Accu-Cheks. -Chronic hypotension Patient is on midodrine -Chronic medical debility -Acute delirium from hypoxia/hypoxic encephalopathy: Improved EEG-encephalopathy findings -Underlying cognitive impairment -Permanent pacemaker -Full code -Kamar JORDAN Vancomycin changed to IV Unasyn., . Other medications to continue. Discussed with Silas RYAN at the bedside. Oral prognosis guarded. PermCath placement on Saturday. Hopefully discharge on Saturday
--- NOTE | 2021-02-18 14:43 | ECHOF ---
Referral Reason:effusion MEASUREMENTS -------- HEIGHT: 160.0 cm WEIGHT: 68.9 kg BP: FINDINGS -------- Limited Study for effusion. There is a trivial pericardial effusion present. CONCLUSIONS -------- 1. Limited Study for effusion. 2. There is a trivial pericardial effusion present. MANAGER PRIVACY: Caroline Duval RDCS
[2021-02-18] MEDS: AMPICILLIN-SULBACTAM 3 GM in SODIUM CHLORIDE 0.9% 100 ML IVPB SCH ×2 (16:25→20:13)
[2021-02-18 16:58] LABS: Glucose,Whole Blood 295 mg/dL (75-99)
[2021-02-18 20:01] LABS: Glucose,Whole Blood 316 mg/dL (75-99)
[2021-02-18] MEDS: EZETIMIBE 10 MG TAB PO SCH (21:07)
[2021-02-19 06:16] LABS: Glucose,Whole Blood 156 mg/dL (75-99)
[2021-02-19] MEDS: SEVELAMER 800 MG TAB PO SCH ×4 (06:29→21:07)
[2021-02-19] MEDS: INSULIN ASPART (NovoLOG) 100 UNIT/ML VIAL SQ SCH ×4 (06:30→21:07)
[2021-02-19 07:50] LABS: Anisocytosis Slight; Basophils # (A) 0.1 k/uL (0-0.2); Basophils % (A) 0 %; Eosinophils # (A) 0.4 k/uL (0-0.7); Eosinophils % (A) 3 %; HCT 30.4 % (34.0-46.0); HGB 9.5 gm/dL (11.4-16.0); Hypochromasia Moderate; Lymphocytes % (A) 8 %; MCH 35.9 pg (25.0-35.0); MCHC 31.3 g/dL (31.0-37.0); MCV 114.9 fL (80.0-100.0); Macrocytosis Marked; Mean Platelet Volume 7.9; Monocytes # (A) 0.9 k/uL (0-1.0); Monocytes % (A) 7 %; Neutrophils # (A) 9.8 k/uL (1.3-7.7); Neutrophils % (A) 79 %; Platelet Count 250 k/uL (150-450); RBC 2.65 m/uL (3.80-5.40); RDW 16.5 % (11.5-15.5); WBC 12.4 k/uL (3.8-10.6)
[2021-02-19 08:07] LABS: Calcium 9.6 mg/dL (8.4-10.2); Potassium 4.2 mmol/L (3.5-5.1)
[2021-02-19] MEDS: ALBUTEROL NEBULIZED 2.5 MG/3 ML INHALATION SCH ×4 (09:07→20:09)
[2021-02-19 09:19] LABS: Polychromasia Present
[2021-02-19] MEDS: SODIUM BICARBONATE TAB 650 MG TAB PO SCH ×3 (09:25→21:07)
[2021-02-19] MEDS: ASCORBIC ACID 500 MG TAB PO SCH (09:25)
[2021-02-19] MEDS: CYANOCOBALAMIN 500 MCG TAB PO SCH (09:25)
[2021-02-19] MEDS: FOLIC ACID-VIT B COMPLEX-VIT C 1 CAP PO SCH (09:26)
[2021-02-19] MEDS: AMPICILLIN-SULBACTAM 3 GM in SODIUM CHLORIDE 0.9% 100 ML IVPB SCH ×2 (09:26→21:07)
[2021-02-19] MEDS: NYSTATIN 100,000UNIT/GM CREAM 30 GM TUBE TOPICAL SCH ×2 (09:26→21:24)
[2021-02-19] MEDS ORDERED: HEPARIN SODIUM 1,000 UN/ML (10ML VL) IV ONE (10:35)
[2021-02-19] MEDS ORDERED: HEPARIN SODIUM 1,000 UN/ML (10ML VL) IV PRN (10:35)
--- NOTE | 2021-02-19 11:10 | PN ---
PROGRESS NOTE Mrs. Paul is a 75-year-old female with known history of end-stage renal failure on hemodialysis who presented with symptoms of progressive dyspnea and change in mental status. Was found to have moderate to large pericardial effusion as well as evidence of pleural effusion. She underwent thoracentesis as well as pericardiocentesis. She is more awake and alert today. She is feeling well. Her breathing is stable. She denies any dizziness. She denies any palpitation. She denies any nausea. Hemodynamically, she is stable. Her anticoagulation was on hold. She continues to be on Zetia 10 mg daily and midodrine. PHYSICAL EXAMINATION: Blood pressure running in the 80-110s, heart rate in the 60s. Lungs with decreased breath sounds at the bases no wheezes. Heart irregular irregular S1, S2. No S3. No rub. Abdomen is soft nontender. Extremities no significant edema. LAB DATA: Hemoglobin 9.5, BUN and creatinine 48 and 5.3. IMPRESSION: 1. End-stage renal disease on hemodialysis. 2. Removal of her dialysis catheter because of infection. 3. Pericardial effusion, resolved. 4. Pleural effusion status post thoracentesis. 5. Atrial fibrillation. RECOMMENDATION: I will put her on IV heparin pending any further intervention and depending on her progress further recommendations will be made. MMODL / IJN: [id number] /
[2021-02-19 11:32] LABS: Glucose,Whole Blood 181 mg/dL (75-99)
[2021-02-19] MEDS: HEPARIN SOD,PORK IN 0.45% NACL 25,000 UNIT in 0.45% NACL 1 250ML.BAG IV SCH (11:39)
[2021-02-19 12:01] LABS: INR 1.2 (<1.2); Partial Thromboplastin Time 24.6 sec (22.0-30.0)
--- NOTE | 2021-02-19 12:11 | P.PN ---
Subjective Progress Note Date: 02/19/21 Principal diagnosis: Sepsis. On 02/17/2021 patient seen in follow-up on selective care unit, patient is status post pericardiocentesis with placement of a pigtail drain, postoperative day #2, and bilateral pleural effusions, left greater than right, status post left thoracentesis by interventional radiology with removal of 560 mL of pleural fluid. Follow-up chest x-ray after the procedure showed improvement in aeration of the left lung. Patient is currently on 4 L of oxygen, and his pulse ox is 97-100%, hemodynamically stable, he is afebrile. Patient's blood culture was positive for Enterococcus faecalis patient is on Rocephin for antibiotic coverage, there was a concern for possibly infected permacath which was removed, and catheter tip cultures have been ordered. Patient was initially covered with vancomycin, ID service is following and current abiotic coverage is just with Rocephin. he is breathing comfortably, he is more awake and alert on today's exam, no chest pain, no abdominal pain, no nausea or vomiting. No diarrhea. On 02/18/2021 patient seen in follow-up on selective care unit. Patient is awake and alert, in no acute distress, she is on 3 L of oxygen, with a pulse ox of 97%. No worsening dyspnea at rest, she does have exertional dyspnea. No fever or chills. Patient is incontinent of urine, she does avoid, it urine output is difficult to estimate as the patient is incontinent. She remains on antibiotics in the form of ceftriaxone and vancomycin for enterococcus bacteremia, her follow-up blood cultures have shown no growth thus far, last set was sent on 02/16/2021, her permacath catheter was removed by vascular surgery and catheter tip has been sent for culture, reported on the cultures thus far, patient is status post left-sided thoracentesis, so far pleural fluid cultures remain negative. Patient is supposed to have a new hemodialysis catheter inserted today by vascular surgery. Progress note dated 02/19/2021. The patient is again seen today, in room 377. She is resting comfortably. She's on a couple liters of oxygen. Saturations are in the mid to high 90s. The patient was to have a hemodialysis catheter placed. It apparently has not been done as yet. She remains on antibiotics in the form of ceftriaxone and vancomycin for enterococcus bacteremia. She denies any shortness of breath. She denies any chest pain or chest discomfort. White count 12.4, hemoglobin 9.5, hematocrit 30.4, and platelet count 250,000. PT 12, INR 1.2, PT 24.6. Sodium is 134, potassium 4.2, chlorides 99, CO2 20, anion gap 15, BUN 48, and creatinine 5.33. The catheter tip that was removed on February 16, was positive for group D enterococcus. Objective - Vital Signs Vital signs: Vital Signs Temp 97.5 F L 02/19/21 09:20 Pulse 60 02/19/21 09:20 Resp 20 02/19/21 09:20 BP 85/35 02/19/21 09:20 Pulse Ox 88 L 02/19/21 09:20 Intake & Output 02/18/21 02/19/21 02/19/21 18:59 06:59 18:59 Intake Total 2040 120 0 Balance 2040 120 0 Weight 50 kg Intake: Intake, IV Titration 100 Amount Ampicillin-Sulbactam 3 gm 100 In Sodium Chloride 0.9% 100 ml @ 200 mls/hr IVPB Q12HR [facility] Rx#:[id number] Oral 0 20 0 Other: Voiding Method Incontinent Incontinent Incontinent # Voids 1 # Bowel Movements 1 - Exam GENERAL EXAM: Alert, very pleasant, 75-year-old white male, on 3 L of oxygen and pulse ox of 97-100% comfortable in no apparent distress. HEAD: Laceration noted on forehead, where the patient fell. EYES: Normal reaction of pupils, equal size. Conjunctiva pink, sclera white. NOSE: Clear with pink turbinates. THROAT: No erythema or exudates. NECK: No masses, no JVD, no thyroid enlargement, no adenopathy. CHEST: No chest wall deformity. Symmetrical expansion. LUNGS: Equal air entry with diminished breath sounds at the bases CVS: Regular rate and rhythm, normal S1 and S2, no gallops, no murmurs, no rubs. Heart rate 60 bpm. ABDOMEN: Soft, nontender. No hepatosplenomegaly, normal bowel sounds, no guarding or rigidity. EXTREMITIES: No clubbing, no edema, no cyanosis, 2+ pulses and upper and lower extremities. MUSCULOSKELETAL: Muscle strength and tone normal. SPINE: No scoliosis or deformity SKIN: No rashes CENTRAL NERVOUS SYSTEM: Alert and oriented -3. No focal deficits, tone is normal in all 4 extremities. PSYCHIATRIC: Alert and oriented -3. Appropriate affect. Intact judgment and insight. - Labs CBC & Chem 7: 02/19/21 07:12 02/19/21 07:12 Labs: Abnormal Lab Results - Last 24 Hours (Table) 02/18/21 02/18/21 02/18/21 Range/Units 12:04 16:43 19:59 WBC (3.8-10.6) k/uL RBC (3.80-5.40) m/uL Hgb (11.4-16.0) gm/dL Hct (34.0-46.0) % MCV (80.0-100.0) fL MCH (25.0-35.0) pg RDW (11.5-15.5) % Neutrophils # (1.3-7.7) k/uL Macrocytosis Sodium (137-145) mmol/L Carbon Dioxide (22-30) mmol/L BUN (7-17) mg/dL Creatinine (0.52-1.04) mg/dL Glucose (74-99) mg/dL POC Glucose (mg/dL) 343 H 295 H 316 H (75-99) mg/dL 02/19/21 02/19/21 02/19/21 Range/Units 06:15 07:12 07:12 WBC 12.4 H (3.8-10.6) k/uL RBC 2.65 L (3.80-5.40) m/uL Hgb 9.5 L (11.4-16.0) gm/dL Hct 30.4 L (34.0-46.0) % MCV 114.9 H (80.0-100.0) fL MCH 35.9 H (25.0-35.0) pg RDW 16.5 H (11.5-15.5) % Neutrophils # 9.8 H (1.3-7.7) k/uL Macrocytosis Marked A Sodium (137-145) mmol/L Carbon Dioxide (22-30) mmol/L BUN (7-17) mg/dL Creatinine 5.27 H (0.52-1.04) mg/dL Glucose (74-99) mg/dL POC Glucose (mg/dL) 156 H (75-99) mg/dL 02/19/21 02/19/21 Range/Units 07:12 11:31 WBC (3.8-10.6) k/uL RBC (3.80-5.40) m/uL Hgb (11.4-16.0) gm/dL Hct (34.0-46.0) % MCV (80.0-100.0) fL MCH (25.0-35.0) pg RDW (11.5-15.5) % Neutrophils # (1.3-7.7) k/uL Macrocytosis Sodium 134 L (137-145) mmol/L Carbon Dioxide 20 L (22-30) mmol/L BUN 48 H (7-17) mg/dL Creatinine 5.33 H (0.52-1.04) mg/dL Glucose 143 H (74-99) mg/dL POC Glucose (mg/dL) 181 H (75-99) mg/dL Microbiology - Last 24 Hours (Table) 02/17/21 11:05 Gram Stain - Preliminary Pleural Fluid Body Fluid Culture - Preliminary 02/16/21 18:09 Catheter Tip Culture - Final Catheter Tip Coagulase Negative Staph Group D Enterococcus 02/16/21 10:10 Blood Culture - Final Blood 02/14/21 18:30 Blood Culture - Preliminary Blood No Growth after 96 hours Assessment and Plan Assessment: #1. Pericardial effusion, status post pericardiocentesis would removal of 300 mL of bloody fluid, postoperative day number 4. #2. Lateral pleural effusions, left greater than right, status post left thoracentesis by interventional radiology today on 02/17/2021 and removal of 560 cc of pleural fluid which was sent for analysis, pleural fluid cultures remain negative thus far, final culture is pending. #3. Enterococcus faecalis bacteremia, was on Rocephin and vancomycin, currently just on Rocephin, ID service is following. #4. Status post removal of right permacath, cath tip was sent for culture. #5. Acute on chronic hypoxic respiratory failure secondary to sepsis, pericardial effusion, and bilateral pleural effusions. #6. End-stage renal disease on hemodialysis. #7. Chronic A. fib on Eliquis, Eliquis is currently on hold. #8. Permanent pacemaker. #9. COPD on home oxygen at 4 L. #10. Diabetes mellitus type 2. #11. History of hypertension. #12. History of hyperlipidemia. #13. History of TIA in 2019. #14. Recent history of a fall. Plan: Plan dated 02/19/2021. Infectious diseases changed the antibiotic to Unasyn. Currently, the patient is stable from the respiratory status. She had no acute events overnight. She is on 3 L nasal cannula. Saturations are in the low to mid 90s. We will continue to follow make recommendations were appropriate. The hemodialysis catheter has not yet been placed. Additional recommendations and suggestions are forthcoming. Time with Patient: Less than 30
--- NOTE | 2021-02-19 12:56 | P.PN ---
Subjective Progress Note Date: 02/19/21 Principal diagnosis: This is a 75-year-old female with ESRD on dialysis Saturday had enterococcal bacteremia likely related to the permacath. Permacath was discon tinued 02/16/2021 after a dialysis on the day As she remains afebrile, she is eating fair amount. Denies any chest pain shortness of breath fever chills Her vital signs are stable Last blood culture is positive on 02/14/2021, repeat blood cultures from 02/16 so far negative. She is afebrile repeat blood cultures were ordered on 02/18/2021 Objective - Vital Signs Vital signs: Vital Signs Temp 97.5 F L 02/19/21 09:20 Pulse 72 02/19/21 12:41 Resp 20 02/19/21 09:20 BP 85/35 02/19/21 09:20 Pulse Ox 88 L 02/19/21 09:20 Intake & Output 02/18/21 02/19/21 02/19/21 18:59 06:59 18:59 Intake Total 2040 120 0 Balance 2040 120 0 Weight 50 kg Intake: Intake, IV Titration 100 Amount Ampicillin-Sulbactam 3 gm 100 In Sodium Chloride 0.9% 100 ml @ 200 mls/hr IVPB Q12HR [facility] Rx#:[id number] Oral 0 20 0 Other: Voiding Method Incontinent Incontinent Incontinent # Voids 1 # Bowel Movements 1 On examination she is awake alert and oriented HEENT exam no JVP neck is supple no facial asymmetry Lungs clear to auscultation but poor air entry poor inspiratory effort Heart sounds unremarkable for any murmur rub gallop Abdomen soft nontender Extreme exam was trace edema Neurologically awake alert oriented no asterixis noted - Labs CBC & Chem 7: 02/19/21 07:12 02/19/21 07:12 Labs: Abnormal Lab Results - Last 24 Hours (Table) 02/18/21 02/18/21 02/19/21 Range/Units 16:43 19:59 06:15 WBC (3.8-10.6) k/uL RBC (3.80-5.40) m/uL Hgb (11.4-16.0) gm/dL Hct (34.0-46.0) % MCV (80.0-100.0) fL MCH (25.0-35.0) pg RDW (11.5-15.5) % Neutrophils # (1.3-7.7) k/uL Macrocytosis INR (<1.2) Sodium (137-145) mmol/L Carbon Dioxide (22-30) mmol/L BUN (7-17) mg/dL Creatinine (0.52-1.04) mg/dL Glucose (74-99) mg/dL POC Glucose (mg/dL) 295 H 316 H 156 H (75-99) mg/dL 02/19/21 02/19/21 02/19/21 Range/Units 07:12 07:12 07:12 WBC 12.4 H (3.8-10.6) k/uL RBC 2.65 L (3.80-5.40) m/uL Hgb 9.5 L (11.4-16.0) gm/dL Hct 30.4 L (34.0-46.0) % MCV 114.9 H (80.0-100.0) fL MCH 35.9 H (25.0-35.0) pg RDW 16.5 H (11.5-15.5) % Neutrophils # 9.8 H (1.3-7.7) k/uL Macrocytosis Marked A INR (<1.2) Sodium 134 L (137-145) mmol/L Carbon Dioxide 20 L (22-30) mmol/L BUN 48 H (7-17) mg/dL Creatinine 5.27 H 5.33 H (0.52-1.04) mg/dL Glucose 143 H (74-99) mg/dL POC Glucose (mg/dL) (75-99) mg/dL 02/19/21 02/19/21 Range/Units 11:31 11:41 WBC (3.8-10.6) k/uL RBC (3.80-5.40) m/uL Hgb (11.4-16.0) gm/dL Hct (34.0-46.0) % MCV (80.0-100.0) fL MCH (25.0-35.0) pg RDW (11.5-15.5) % Neutrophils # (1.3-7.7) k/uL Macrocytosis INR 1.2 H (<1.2) Sodium (137-145) mmol/L Carbon Dioxide (22-30) mmol/L BUN (7-17) mg/dL Creatinine (0.52-1.04) mg/dL Glucose (74-99) mg/dL POC Glucose (mg/dL) 181 H (75-99) mg/dL Microbiology - Last 24 Hours (Table) 02/17/21 11:05 Gram Stain - Preliminary Pleural Fluid Body Fluid Culture - Preliminary 02/16/21 18:09 Catheter Tip Culture - Final Catheter Tip Coagulase Negative Staph Group D Enterococcus 02/16/21 10:10 Blood Culture - Final Blood 02/14/21 18:30 Blood Culture - Preliminary Blood No Growth after 96 hours Assessment and Plan Assessment: Impression 1. ESRD on dialysis Saturday with a permacath. Last dialysis was 02/16/2021, she is stable not uremic electrolytes unremarkable 2. Enterococcal bacteremia from his permacath, permacath discontinued 02/16/2021, last dialysis 02/16/2021 3. Anemia of ESRD, hemoglobin is 10.3 on 02/14/2021 4. Off of dialysis labs are stable potassium is 4.1 bicarb is 21 BUN is 44 creatinines 5 as of this morning 5. Blood pressure controlled 6. Euvolemic. 7. Mild degree of gap acidosis bicarb 20 and gap is 15 from ESRD Recommendation 1. Hold off dialysis Today. 2. If blood cultures are negative plan for permacath tomorrow 3. Maintain antibiotics 4. Check labs tomorrow for hyperkalemia
[2021-02-19 16:47] LABS: Glucose,Whole Blood 184 mg/dL (75-99)
[2021-02-19 19:50] LABS: Glucose,Whole Blood 187 mg/dL (75-99)
--- NOTE | 2021-02-19 20:30 | PN ---
PROGRESS NOTE DATE OF SERVICE: 02/19/2021 REASON FOR FOLLOWUP: Enterococcus faecalis bacteremia. INTERVAL HISTORY: Patient is afebrile. The patient is breathing comfortably. The patient denies having any chest pain, shortness of breath. Occasional cough. No abdominal pain, vomiting or diarrhea. PHYSICAL EXAMINATION: Blood pressure 110/62 with a pulse of 80, temperature 98.2. She is 96% on 4 L nasal cannula. GENERAL DESCRIPTION: Is an elderly female up in the bed in no distress. RESPIRATORY SYSTEM: Unlabored breathing, decreased breath sounds at bases. No wheeze. HEART: S1, S2. Regular rate. ABDOMEN: Soft, no tenderness. LABS: ( ) is 9.5, white count 12.4, creatinine 5.33. Blood cultures from the came back positive as well. DIAGNOSTIC IMPRESSION AND PLAN: Patient with Enterococcus faecalis bacteremia, source likely from the catheter, which has been discontinued. Blood culture on positive. We will hold on placing a Hsu catheter tomorrow. Will wait for the blood culture drawn on the to be negative ( ) or before placing another ( ) catheter. Will discuss with vascular surgery. Family at the bedside. Questions were also taken. Continue with Unasyn at this point. MMODL / IJN: [id number] /
--- NOTE | 2021-02-19 20:41 | P.PN ---
Progress Note - Text Progress Note Date: 02/19/21 Chief Complaint: Short of breath History of presenting complaint: This is a 75-year-old patient who follows with Dr. Jp Brooks. Patient is resident of [facility] from where she was transferred to [facility] [place]. Chronic stable medical conditions include CHF, end-stage kidney disease on hemodialysis TTS, atrial fibrillation, permanent pacemaker, GERD. COPD. On 4 L of oxygen at baseline. Patient just recently was at [facility] following a head trauma. Laying down which she was carried out. At her baseline patient is AO 2. Patient was transferred to [facility] [place] as patient had become a bit confused. Normally on 4 L of oxygen she is oxygen is a 90% but dropped down to 80s. Computed tomography scan of the head was unremarkable. Chest x-rays shown pleural effusion. Also patient was started on ciprofloxacin for recent UTI. I saw the patient in the ER this afternoon. She does not want to be here she says. Patient not a good historian. Nephrology and pulmonary were consulted. Patient is short of breath. Slight cough. Not sure about fever. Blood cultures positive for Enterococcus faecalis. Pericardiocentesis done with 3 units cc of bloody fluid removed. Pigtail catheter placed. Hemodialysis catheter removed because of infection February 15: ICU: Yesterday evening during hemodialysis patient had an episode of hypotension bradycardia.A team was called out. There was a slight change in mental status. Recovered. Patient is moved to the ICU. Patient's significant other is in the room. Today. Patient on clear liquids. Ultrasound marking for the left pleural effusion has been done. Consultation to cardiology, neurology's been done. EEG ordered. Blood cultures growing gram- positive cocci in cultures. Given vancomycin February 16: 2-D echocardiogram which showed a large generalized pericardial effusion. Today Dr. Dubois from cardiothoracic surgery did pericardiocentesis: 300 mL of bloody fluid was obtained. Pigtail catheter was placed. D POA at the bedside. Patient tired. Has not eaten today. Hemodialysis today. Following that the hemodialysis catheter will be removed by Dr. Pearl. 5 60 mL of left- sided sanguinous fluid removed from the left side February 17: Patient more awake. Reclining in bed. Declining food. Significant other at the bedside. Less short of breath. Pigtail catheter to drain February 18: Sitting up in bed. Awake. Pigtail catheter removed from the pericard ium. Had minimal drainage. Significant other at the bedside. Patient had about 50% of for breakfast. February 19: Propped up in bed, awake. Dialysis has been held pending new dialysis catheter placement. Eating fair amounts. Breathing stable. Review of systems: Was done for constitutional, cardiovascular, GI, pulmonary. relevant finding as above Active Medications Acetaminophen (Acetaminophen Tab 325 Mg Tab) 650 mg PO Q6HR PRN PRN Reason: Mild Pain or Fever > 100.5 Last Admin: 02/17/21 13:33 Dose: 650 mg Documented by: Al Hydroxide/Mg Hydroxide (Mag Hydrox/Al Hydrox/Simeth 30 Ml Cup) 10 ml PO Q4H PRN PRN Reason: Indigestion Albuterol Sulfate (Albuterol Nebulized 2.5 Mg/3 Ml) 2.5 mg INHALATION RT-QID [facility] Last Admin: 02/19/21 20:09 Dose: 2.5 mg Documented by: Ascorbic Acid (Ascorbic Acid 500 Mg Tab) 500 mg PO DAILY [facility] Last Admin: 02/19/21 09:25 Dose: 500 mg Documented by: Calcium Carbonate/Glycine (Calcium Carbonate 500 Mg Chewable) 1,000 mg PO Q4HR PRN PRN Reason: Dyspepsia Last Admin: 02/17/21 14:11 Dose: 1,000 mg Documented by: Cyanocobalamin (Cyanocobalamin 500 Mcg Tab) 1,000 mcg PO DAILY [facility] Last Admin: 02/19/21 09:25 Dose: 1,000 mcg Documented by: Ezetimibe (Ezetimibe 10 Mg Tab) 10 mg PO HS [facility] Last Admin: 02/18/21 21:07 Dose: 10 mg Documented by: Heparin Sodium (Porcine) (Heparin Sodium 1,000 Un/Ml (10ml Vl)) 0 unit IV PER PROTOCOL PRN; Protocol PRN Reason: Low PTT Ampicillin Sodium/Sulbactam (Sodium 3 gm/ Sodium Chloride) 100 mls @ 200 mls/hr IVPB Q12HR [facility] Last Admin: 02/19/21 09:26 Dose: 200 mls/hr Documented by: Heparin Sodium/Sodium Chloride (25,000 unit/ Sodium Chloride) 250 mls @ 6 mls/hr IV .Q24H [facility]; Protocol Last Admin: 02/19/21 11:39 Dose: 12 units/kg/hr, 6 mls/hr Documented by: Insulin Aspart (Insulin Aspart (Novolog) 100 Unit/Ml Vial) 0 unit SQ [facility]; Protocol Last Admin: 02/19/21 18:04 Dose: 2 unit Documented by: Lactulose (Lactulose 20 Gm/30 Ml Cup) 20 gm PO DAILY PRN PRN Reason: Constipation Magnesium Hydroxide (Magnesium Hydroxide 2,400 Mg/10 Ml Cup) 2,400 mg PO Q24H PRN PRN Reason: Constipation Midodrine (Midodrine 5 Mg Tab) 10 mg PO TuThSa@0900 [facility] Last Admin: 02/18/21 09:21 Dose: 10 mg Documented by: Multivit/Ca Carb/B Cmplx/FA/Prenat (Folic Acid-Vit B Complex-Vit C 1 Cap) 1 each PO DAILY [facility] Last Admin: 02/19/21 09:26 Dose: 1 each Documented by: Naloxone HCl (Naloxone 0.4 Mg/Ml 1 Ml Vial) 0.2 mg IV Q2M PRN PRN Reason: Opioid Reversal Nystatin (Nystatin 100,000unit/Gm Cream 30 Gm Tube) 1 applic TOPICAL BID [facility]; Protocol Last Admin: 02/19/21 09:26 Dose: 1 applic Documented by: Ondansetron HCl (Ondansetron 4 Mg/2 Ml Vial) 4 mg IVP Q8HR PRN PRN Reason: Nausea And Vomiting Sevelamer Carbonate (Sevelamer 800 Mg Tab) 800 mg PO [facility] Last Admin: 02/19/21 18:04 Dose: 800 mg Documented by: Sodium Bicarbonate (Sodium Bicarbonate Tab 650 Mg Tab) 650 mg PO TID [facility] Last Admin: 02/19/21 18:04 Dose: 650 mg Documented by: Past medical history to include: Atrial fibrillation, asthma, CHF, diabetes, DVT, GERD, hypertension, hyperlipidemia, osteomyelitis discitis, end-stage kidney disease with hemodialysis, TIA, permanent pacemaker, more disorder. Oxygen 4-4 L Social history: No history of smoking or alcohol. Currently at [facility] Family history: Rheumatic fever, [place] Physical examination: VITAL SIGNS: 98.3, 80, 18, 110/62, 96% on 4 L GENERAL:, Sitting up in bed, awake EYES: Pupils equal. Conjunctiva normal. HEENT: External appearance of nose and ears normal, oral cavity grossly normal. NECK: JVD unable to assess; masses not palpable. HEART: First and second heart sounds are normal; some edema. LUNGS:[ Respiratory rate increased, diminished breath sounds. ABDOMEN: Soft, nontender, liver spleen not palpable, no masses palpable. PSYCH: Answering simple questions CHEST wall: Dressing right infraclavicular over the removed dialysis catheter site. INVESTIGATIONS, reviewed in the clinical context: February 19: WBC 12.4 hemoglobin 9.5 potassium 4.2 creatinine 5.33 February 18: Potassium 4.1 February 17: Potassium 4.4 EEG: No epilepsy activity noted. Encephalopathic findings February 16: INR 1.6 TSH 3.8 February 15: WBC 22.8 hemoglobin 10.3 potassium 3.9 BUN 37 creatinine 4.23 2-D echocardiogram: EF 50-55% large generalized pericardial effusion Blood culture [February 14]: Enterococcus faecalis Dialysis catheter tip culture: Group D enterococcus [Labs from [facility] [place]] WBC 20.4 hemoglobin 10.2 platelets 453 sodium 133 potassium 5.5 BUN 56 crit and 6.7 ALT, AST both normal bilirubin 0.5 albumin 3.7 Troponin I 0.015 Computed tomography scan of the head reportedly negative EKG tracing personally reviewed by me-atrial flutter fibrillation with intraventricular block pattern Chest x-ray film personally reviewed by me-cardiomegaly, trachea pole to the right, pleural effusion Assessment and plan: -Acute hypoxic respiratory failure from large pleural effusion: Better Combination of inadequate hemodialysis and/or CHF. Patient underwent blyt-go-egwo hemodialysis and left thoracentesis. -Chronic hypoxic respiratory failure on 4 L of oxygen -Bacteremia Enterococcus faecalis. From hemodialysis catheter. Vancomycin. Hemodialysis catheter removed. Repeat blood culture pending -Large pericardial effusion: February 16: Pericardiocentesis of 300 mL of bloody fluid, Pigtail catheter-removed February 18. -End-stage kidney disease on hemodialysis, TTS Hemodialysis . New PermCath placement on Saturday -Large left pleural effusion, sanguinous Thoracentesis 560 mL removed on February 16 -Persistent atrial flutter fibrillation Continue eliquis -Acute UTI with cystitis, IV ceftriaxone.-Completed -Diabetes mellitus type 2, chronically on insulin Follow Accu-Cheks. -Chronic hypotension Patient is on midodrine -Chronic medical debility -Acute delirium from hypoxia/hypoxic encephalopathy: Improved EEG-encephalopathy findings -Underlying cognitive impairment -Permanent pacemaker -Full code -Kamar JORDAN IVsyn., . Other medications to continue. Possibly PermCath placement tomorrow.
[2021-02-19] MEDS: EZETIMIBE 10 MG TAB PO SCH (21:06)
[2021-02-19] MEDS: ACETAMINOPHEN TAB 325 MG TAB PO PRN (21:12)
[2021-02-20 03:11] LABS: Anisocytosis Slight; Basophils # (A) 0.1 k/uL (0-0.2); Basophils % (A) 0 %; Eosinophils # (A) 0.4 k/uL (0-0.7); Eosinophils % (A) 3 %; HCT 30.3 % (34.0-46.0); HGB 9.4 gm/dL (11.4-16.0); Hypochromasia Moderate; Lymphocytes # (A) 0.9 k/uL (1.0-4.8); Lymphocytes % (A) 7 %; MCH 35.6 pg (25.0-35.0); MCHC 31.1 g/dL (31.0-37.0); Macrocytosis Marked; Mean Platelet Volume 7.3; Monocytes # (A) 0.7 k/uL (0-1.0); Monocytes % (A) 6 %; Neutrophils # (A) 9.9 k/uL (1.3-7.7); Neutrophils % (A) 82 %; Platelet Count 266 k/uL (150-450); RBC 2.65 m/uL (3.80-5.40); RDW 17.1 % (11.5-15.5); WBC 12.1 k/uL (3.8-10.6)
[2021-02-20 03:23] LABS: MCV 114.7 fL (80.0-100.0)
[2021-02-20 03:41] LABS: INR 1.2 (<1.2); Partial Thromboplastin Time 31.6 sec (22.0-30.0); Prothrombin Time 12.2 sec (9.0-12.0)
[2021-02-20 04:36] LABS: Calcium 9.4 mg/dL (8.4-10.2); Potassium 4.2 mmol/L (3.5-5.1)
[2021-02-20 05:37] LABS: Glucose,Whole Blood 174 mg/dL (75-99)
[2021-02-20] MEDS: SEVELAMER 800 MG TAB PO SCH ×4 (07:03→20:52)
[2021-02-20] MEDS: INSULIN ASPART (NovoLOG) 100 UNIT/ML VIAL SQ SCH ×4 (07:03→20:53)
[2021-02-20] MEDS: ALBUTEROL NEBULIZED 2.5 MG/3 ML INHALATION SCH ×4 (07:42→19:24)
[2021-02-20] MEDS: AMPICILLIN-SULBACTAM 3 GM in SODIUM CHLORIDE 0.9% 100 ML IVPB SCH ×2 (10:01→20:53)
[2021-02-20] MEDS: CYANOCOBALAMIN 500 MCG TAB PO SCH (10:02)
[2021-02-20] MEDS: NYSTATIN 100,000UNIT/GM CREAM 30 GM TUBE TOPICAL SCH ×2 (10:02→20:57)
[2021-02-20] MEDS: FOLIC ACID-VIT B COMPLEX-VIT C 1 CAP PO SCH (10:02)
[2021-02-20] MEDS: SODIUM BICARBONATE TAB 650 MG TAB PO SCH ×3 (10:02→20:53)
[2021-02-20] MEDS: ASCORBIC ACID 500 MG TAB PO SCH (10:02)
[2021-02-20] MEDS: HEPARIN SOD,PORK IN 0.45% NACL 25,000 UNIT in 0.45% NACL 1 250ML.BAG IV SCH ×2 (10:52→20:16)
[2021-02-20 11:25] LABS: Glucose,Whole Blood 157 mg/dL (75-99)
--- NOTE | 2021-02-20 11:55 | PN ---
PROGRESS NOTE Patient is seen for followup for end-stage renal disease. She has had her PermCath removed for ongoing bacteremia. Blood cultures had grown group D Enterococcus. Repeat blood cultures from February 18 are negative. The patient is scheduled for a new catheter placement either today or tomorrow. PHYSICAL EXAMINATION: On examination today, she is comfortable. Blood pressure 107/40, heart rate 60 per minute, she is afebrile. Examination of the heart S1, S2. Examination of the lungs, bilateral breath sounds are heard. Abdomen is soft, nontender, obese. Examination lower extremities shows trace edema bilaterally. [employer] exam grossly intact. LAB: Show sodium of 134 from February 20, potassium 4.2, creatinine 5.5, hemoglobin 9.4 g/dL. ASSESSMENT: 1. End-stage renal disease, on hemodialysis on a Saturday, , Saturday schedule as outpatient at [place], currently status post discontinuation of PermCath. Last dialysis on 02/16/2021. Currently not uremic. Labs look okay. PermCath PIC can be placed either today or tomorrow as blood cultures are negative from 02/18/2021. 2. Enterococcus bacteremia status post removal of dialysis catheter. 3. Mild metabolic acidosis from ESRD. 4. Anemia of chronic disease. PLAN: New catheter placement either today or tomorrow. We will plan for dialysis tomorrow. MMODL / IJN: [id number] /
--- NOTE | 2021-02-20 12:11 | XR ---
EXAMINATION TYPE: XR chest 1V portable DATE OF EXAM: 02/20/2021 Comparison: 02/17/2021 Clinical History: 75-year-old female shortness of breath Findings: Right anterior chest wall pacemaker generator with a right ventricular lead and additional lead along the right side of the mediastinum. Left heart margin is obscured by adjacent pleural parenchymal [place]. Moderate to large effusion on the left. Only a small portion of left upper lung remains aerated . Loop recorder device. Impression: Interval increase now with a moderate to large left pleural effusion with underlying atelectasis and/ or consolidation.
--- NOTE | 2021-02-20 13:52 | P.PN ---
Progress Note - Text 75-year-old white female, patient is known to me from the past. Patient has infected catheter right IJ growing enterococcus bacteremia Plan is waiting for infectious disease clearance for placement of a dialysis catheter
--- NOTE | 2021-02-20 14:31 | P.PN ---
Subjective Progress Note Date: 02/20/21 Principal diagnosis: Bilateral pleural effusion, left greater than right, pericardial effusion, status post pericardiocentesis On 02/17/2021 patient seen in follow-up on selective care unit, patient is status post pericardiocentesis with placement of a pigtail drain, postoperative day #2, and bilateral pleural effusions, left greater than right, status post left thoracentesis by interventional radiology with removal of 560 mL of pleural fluid. Follow-up chest x-ray after the procedure showed improvement in aeration of the left lung. Patient is currently on 4 L of oxygen, and his pulse ox is 97-100%, hemodynamically stable, he is afebrile. Patient's blood culture was p ositive for Enterococcus faecalis patient is on Rocephin for antibiotic coverage, there was a concern for possibly infected permacath which was removed, and catheter tip cultures have been ordered. Patient was initially covered with vancomycin, ID service is following and current abiotic coverage is just with Rocephin. he is breathing comfortably, he is more awake and alert on today's exam, no chest pain, no abdominal pain, no nausea or vomiting. No diarrhea. On 02/18/2021 patient seen in follow-up on selective care unit. Patient is awake and alert, in no acute distress, she is on 3 L of oxygen, with a pulse ox of 97%. No worsening dyspnea at rest, she does have exertional dyspnea. No fever or chills. Patient is incontinent of urine, she does avoid, it urine output is difficult to estimate as the patient is incontinent. She remains on antibiotics in the form of ceftriaxone and vancomycin for enterococcus bacteremia, her follow-up blood cultures have shown no growth thus far, last set was sent on 02/16/2021, her permacath catheter was removed by vascular surgery and catheter tip has been sent for culture, reported on the cultures thus far, patient is status post left-sided thoracentesis, so far pleural fluid cultures remain negative. Patient is supposed to have a new hemodialysis catheter inserted today by vascular surgery. On 02/20/2021 patient seen in follow-up on selective care unit. She is currently working with physical therapy, she sitting up on the edge of the bed. She is breathing comfortably, denies any dyspnea, no cough, no chest discomfort. Lung sounds reveal diminished breath sounds with dullness at the left base, and left pleural effusion is suspected, we will obtain follow-up chest x-ray later on today, however in terms of oxygenation it has remained stable, she is currently still on 3 L a pulse ox of 100%. The labs have been reviewed but cell count is stable, at 12.1, hemoglobin is 9.4, INR is 1.2, sodium is 134, renal profile slightly worse, with BUN of 51, creatinine is 5.51. No Significant edema involving lower extremities. Remains on antibiotics in the form of ampicillin for enterococcus bacteremia, her right subclavian permacath has been removed, and catheter tip also shows quite is negative staph and group D enterococcus. Follow blood cultures have shown no growth at the 24-hour roney. Pleural fluid culture is still pending, preliminary Gram stain showed no organisms. Pericardial catheter has been removed a few days ago. Blood pressure has been stable Objective - Vital Signs Vital signs: Vital Signs Temp 98.4 F 02/20/21 08:00 Pulse 71 02/20/21 11:58 Resp 16 02/20/21 11:58 BP 104/63 02/20/21 11:58 Pulse Ox 100 02/20/21 11:58 Intake & Output 02/19/21 02/20/21 02/20/21 18:59 06:59 18:59 Intake Total 1060 108.55 335.75 Balance 1060 108.55 335.75 Weight 63.5 kg 63.5 kg Intake: IV 20 0.9 KVO 20 Intake, IV Titration 100 108.55 75.75 Amount Ampicillin-Sulbactam 3 gm 100 In Sodium Chloride 0.9% 100 ml @ 200 mls/hr IVPB Q12HR [facility] Rx#:[id number] Heparin Sod,Pork in 0.45% 108.55 75.75 NaCl 25,000 unit In 0.45 % NaCl 1 250ml.bag @ 12 UNITS/KG/HR 6 mls/hr IV . Q24H [facility] Rx#:[id number] Oral 960 240 Other: Voiding Method Incontinent Incontinent Incontinent # Voids 1 3 1 # Bowel Movements 1 1 - Exam GENERAL EXAM: Alert, very pleasant, 75-year-old white male, on 3 L of oxygen and pulse ox of 97-100% comfortable in no apparent distress. HEAD: Normocephalic/atraumatic. EYES: Normal reaction of pupils, equal size. Conjunctiva pink, sclera white. NOSE: Clear with pink turbinates. THROAT: No erythema or exudates. NECK: No masses, no JVD, no thyroid enlargement, no adenopathy. CHEST: No chest wall deformity. Symmetrical expansion. LUNGS: Equal air entry with diminished breath sounds at the bases CVS: Regular rate and rhythm, normal S1 and S2, no gallops, no murmurs, no rubs ABDOMEN: Soft, nontender. No hepatosplenomegaly, normal bowel sounds, no g uarding or rigidity. EXTREMITIES: No clubbing, no edema, no cyanosis, 2+ pulses and upper and lower extremities. MUSCULOSKELETAL: Muscle strength and tone normal. SPINE: No scoliosis or deformity SKIN: No rashes CENTRAL NERVOUS SYSTEM: Alert and oriented -3. No focal deficits, tone is normal in all 4 extremities. PSYCHIATRIC: Alert and oriented -3. Appropriate affect. Intact judgment and insight. - Labs CBC & Chem 7: 02/20/21 02:53 02/20/21 02:53 Labs: Abnormal Lab Results - Last 24 Hours (Table) 02/19/21 02/19/21 02/20/21 Range/Units 16:45 19:47 02:53 WBC 12.1 H (3.8-10.6) k/uL RBC 2.65 L (3.80-5.40) m/uL Hgb 9.4 L (11.4-16.0) gm/dL Hct 30.3 L (34.0-46.0) % MCV 114.7 H (80.0-100.0) fL MCH 35.6 H (25.0-35.0) pg RDW 17.1 H (11.5-15.5) % Neutrophils # 9.9 H (1.3-7.7) k/uL Lymphocytes # 0.9 L (1.0-4.8) k/uL Macrocytosis Marked A PT (9.0-12.0) sec INR (<1.2) APTT (22.0-30.0) sec Sodium (137-145) mmol/L Carbon Dioxide (22-30) mmol/L BUN (7-17) mg/dL Creatinine (0.52-1.04) mg/dL Glucose (74-99) mg/dL POC Glucose (mg/dL) 184 H 187 H (75-99) mg/dL 02/20/21 02/20/21 02/20/21 Range/Units 02:53 02:53 05:35 WBC (3.8-10.6) k/uL RBC (3.80-5.40) m/uL Hgb (11.4-16.0) gm/dL Hct (34.0-46.0) % MCV (80.0-100.0) fL MCH (25.0-35.0) pg RDW (11.5-15.5) % Neutrophils # (1.3-7.7) k/uL Lymphocytes # (1.0-4.8) k/uL Macrocytosis PT 12.2 H (9.0-12.0) sec INR 1.2 H (<1.2) APTT 31.6 H (22.0-30.0) sec Sodium 134 L (137-145) mmol/L Carbon Dioxide 20 L (22-30) mmol/L BUN 51 H (7-17) mg/dL Creatinine 5.51 H (0.52-1.04) mg/dL Glucose 143 H (74-99) mg/dL POC Glucose (mg/dL) 174 H (75-99) mg/dL 02/20/21 02/20/21 Range/Units 10:44 11:24 WBC (3.8-10.6) k/uL RBC (3.80-5.40) m/uL Hgb (11.4-16.0) gm/dL Hct (34.0-46.0) % MCV (80.0-100.0) fL MCH (25.0-35.0) pg RDW (11.5-15.5) % Neutrophils # (1.3-7.7) k/uL Lymphocytes # (1.0-4.8) k/uL Macrocytosis PT (9.0-12.0) sec INR (<1.2) APTT 35.4 H (22.0-30.0) sec Sodium (137-145) mmol/L Carbon Dioxide (22-30) mmol/L BUN (7-17) mg/dL Creatinine (0.52-1.04) mg/dL Glucose (74-99) mg/dL POC Glucose (mg/dL) 157 H (75-99) mg/dL Microbiology - Last 24 Hours (Table) 02/19/21 10:30 Blood Culture - Preliminary Blood No Growth after 24 hours 02/17/21 11:05 Gram Stain - Preliminary Pleural Fluid Body Fluid Culture - Preliminary 02/14/21 18:30 Blood Culture - Preliminary Blood No Growth after 120 hours 02/16/21 10:10 Blood Culture Gram Stain - Preliminary Blood 02/17/21 11:05 Anaerobic Culture - Preliminary Pleural Fluid 02/18/21 12:38 Blood Culture - Preliminary Blood No Growth after 24 hours Assessment and Plan Plan: Assessment: #1. Pericardial effusion, status post pericardiocentesis would removal of 300 mL of bloody fluid, postoperative day number 4 #2. Bilateral pleural effusions, left greater than right, status post left thoracentesis by interventional radiology today on 02/17/2021 and removal of 560 cc of pleural fluid which was sent for analysis, pleural fluid cultures remain negative thus far, final culture is pending #3. Enterococcus faecalis bacteremia, was on Rocephin and vancomycin, currently just on Rocephin, ID service is following. This was likely related to line infection, permacath was removed from the right subclavian and catheter tip was also positive for group D enterococcus and coagulase-negative staph #4. Status post removal of right permacath, cath tip was sent for culture #5. Acute on chronic hypoxic respiratory failure secondary to sepsis, pericardial effusion, and bilateral pleural effusions #6. End-stage renal disease on hemodialysis #7. Chronic A. fib on Eliquis, Eliquis is currently on hold #8. Permanent pacemaker #9. COPD on home oxygen at 4 L #10. Diabetes mellitus type 2 #11. History of hypertension #12. History of hyperlipidemia #13. History of TIA in 2019 #14. Recent history of a fall Plan: Patient x-ray has been reviewed showing interval increase in the left pleural effusion with underlying atelectasis and/or consolidation Patient has not had dialysis for a few days Today's labs have been noted She still remains on 3 L of oxygen, denies any worsening dyspnea We will continue to monitor her workup breathing, and for signs of increasing Will likely need left-sided thoracentesis if breathing becomes worse, and if she builds up more fluid We'll continue to monitor I performed a history & physical examination of the patient and discussed their management with my nurse practitioner, Mallorie Zavala. I reviewed the nurse practitioner's note and agree with the documented findings and plan of care. Lung sounds are positive for diminished breath sounds. The findings and the impression was discussed with the patient. I attest to the documentation by the nurse practitioner. Time with Patient: Less than 30
--- NOTE | 2021-02-20 14:43 | P.PN ---
Subjective This is a pleasant 75-year-old female past medical history significant for persistent atrial fibrillation on Eliquis, sick sinus syndrome status post pacemaker, morbid obesity, hypertension, dyslipidemia, type 2 diabetes, non- rheumatic mitral valve insufficiency, GERD, end-stage renal disease on dialysis Saturday. Earlier this month patient has sustained a fall with head, and was at [facility]. She follows in the office with Dr. Alvarado. We have been asked to see in consultation for bradycardia event on 02/14. On 02/14/2021 evening patient became hypotensive on dialysis, dialysis was stopped. Patient apparently was bradycardic but was not on telemetry so this was not captured. Patient was transferred from [facility] due to worsening shortness of breath and altered mental status and needing hemodialysis. Patient was found to be bacteremic with infection at her right hemodialysis right IJ catheter. Patient was also found to have a large pericardial effusion and pleural effusion. She underwent left sided thoracentesis with 560 mL removed and pericardiocentesis with 300 mL removed. Patient seen and examined at bedside, no acute distress. She is more awake and alert today. She is sitting up at the bed working with PT/OT. She denies any chest pain, shortness of breath, lightheadedness, dizziness. She is currently hemodynamically stable. Blood pressure 104/63, heart rate 60s-70s. She is maintaining oxygen saturations 100% on 3 L nasal cannula. Telemetry reviewed to proceed to 0.1, hemoglobin 9.4, platelets 266, sodium 134, potassium 4.1, BUN 51, serum creatinine 5.5. Patient currently maintained on IV heparin drip, midodrine 10 mg Saturday. Chest Xray this morning with interval increase with moderate to large left pleural effusion. PHYSICAL EXAMINATION CONSTITUTIONAL: No apparent distress HEENT: Head with trauma to foreard and bruising around bilateral eyes. No JVD. No carotid bruit. CHEST EXAMINATION: Lungs are diminished bilaterally. HEART EXAMINATION: Irregular rate and rhythm. S1, S2 heard. Systolic murmur noted ABDOMEN: Soft, nontender. Positive bowel sounds. EXTREMITIES: 2+ peripheral pulses, no lower extremity edema, bilateral arm edema present, and no calf tenderness. NEUROLOGIC EXAMINATION: Awake alert and oriented to person. She knows she is in the hospital. ASSESSMENT Altered mental status Pericardial effusion, status post pericardiocentesis would removal of 300 mL of bloody fluid on 02/16/21 Bilateral pleural effusions, left greater than right, status post left thoracentesis by interventional radiology 02/17/2021 and removal of 560 cc Enterococcus faecalis bacteremia, currently just on Rocephin, ID service is following Status post removal of right permacath, cath tip was sent for culture Acute on chronic hypoxic with history failure End-stage renal disease on hemodialysis Type 2 diabetes History of hypertension on midodrine Episode of hypotension during dialysis 02/14/21 Permanent atrial fibrillation on Eliquis at home, currently on IV heparin History of Recent head injury early this month PLAN -Continue anticoagulation with IV heparin -We will continue current medical therapy -Plan for patient to undergo possible dialysis catheter placement tomorrow -Pulmonary following, Nephrology following and ID followin -Further recommendations based on clinical course Nurse Practitioner note has been reviewed, I agree with a documented findings and plan of care. Patient was seen and examined. Objective - Vital Signs Vital signs: Vital Signs Temp 98.6 F 02/20/21 04:00 Pulse 60 02/20/21 07:55 Resp 17 02/20/21 04:00 BP 139/68 02/20/21 04:00 Pulse Ox 95 02/20/21 07:44 Intake & Output 02/19/21 02/20/21 02/20/21 18:59 06:59 18:59 Intake Total 1060 108.55 0 Balance 1060 108.55 0 Weight 63.5 kg Intake: Intake, IV Titration 100 108.55 Amount Ampicillin-Sulbactam 3 gm 100 In Sodium Chloride 0.9% 100 ml @ 200 mls/hr IVPB Q12HR [facility] Rx#:[id number] Heparin Sod,Pork in 0.45% 108.55 NaCl 25,000 unit In 0.45 % NaCl 1 250ml.bag @ 12 UNITS/KG/HR 6 mls/hr IV . Q24H [facility] Rx#:[id number] Oral 960 0 Other: Voiding Method Incontinent Incontinent # Voids 1 3 # Bowel Movements 1 - Labs CBC & Chem 7: 02/20/21 02:53 02/20/21 02:53 Labs: Abnormal Lab Results - Last 24 Hours (Table) 02/19/21 02/19/21 02/19/21 Range/Units 07:12 11:31 11:41 WBC (3.8-10.6) k/uL RBC (3.80-5.40) m/uL Hgb (11.4-16.0) gm/dL Hct (34.0-46.0) % MCV (80.0-100.0) fL MCH (25.0-35.0) pg RDW (11.5-15.5) % Neutrophils # 9.8 H (1.3-7.7) k/uL Lymphocytes # (1.0-4.8) k/uL Macrocytosis PT (9.0-12.0) sec INR 1.2 H (<1.2) APTT (22.0-30.0) sec Sodium (137-145) mmol/L Carbon Dioxide (22-30) mmol/L BUN (7-17) mg/dL Creatinine (0.52-1.04) mg/dL Glucose (74-99) mg/dL POC Glucose (mg/dL) 181 H (75-99) mg/dL 02/19/21 02/19/21 02/20/21 Range/Units 16:45 19:47 02:53 WBC 12.1 H (3.8-10.6) k/uL RBC 2.65 L (3.80-5.40) m/uL Hgb 9.4 L (11.4-16.0) gm/dL Hct 30.3 L (34.0-46.0) % MCV 114.7 H (80.0-100.0) fL MCH 35.6 H (25.0-35.0) pg RDW 17.1 H (11.5-15.5) % Neutrophils # 9.9 H (1.3-7.7) k/uL Lymphocytes # 0.9 L (1.0-4.8) k/uL Macrocytosis Marked A PT (9.0-12.0) sec INR (<1.2) APTT (22.0-30.0) sec Sodium (137-145) mmol/L Carbon Dioxide (22-30) mmol/L BUN (7-17) mg/dL Creatinine (0.52-1.04) mg/dL Glucose (74-99) mg/dL POC Glucose (mg/dL) 184 H 187 H (75-99) mg/dL 02/20/21 02/20/21 02/20/21 Range/Units 02:53 02:53 05:35 WBC (3.8-10.6) k/uL RBC (3.80-5.40) m/uL Hgb (11.4-16.0) gm/dL Hct (34.0-46.0) % MCV (80.0-100.0) fL MCH (25.0-35.0) pg RDW (11.5-15.5) % Neutrophils # (1.3-7.7) k/uL Lymphocytes # (1.0-4.8) k/uL Macrocytosis PT 12.2 H (9.0-12.0) sec INR 1.2 H (<1.2) APTT 31.6 H (22.0-30.0) sec Sodium 134 L (137-145) mmol/L Carbon Dioxide 20 L (22-30) mmol/L BUN 51 H (7-17) mg/dL Creatinine 5.51 H (0.52-1.04) mg/dL Glucose 143 H (74-99) mg/dL POC Glucose (mg/dL) 174 H (75-99) mg/dL Microbiology - Last 24 Hours (Table) 02/17/21 11:05 Gram Stain - Preliminary Pleural Fluid Body Fluid Culture - Preliminary 02/14/21 18:30 Blood Culture - Preliminary Blood No Growth after 120 hours 02/16/21 10:10 Blood Culture Gram Stain - Preliminary Blood 02/17/21 11:05 Anaerobic Culture - Preliminary Pleural Fluid 02/18/21 12:38 Blood Culture - Preliminary Blood No Growth after 24 hours 02/16/21 18:09 Catheter Tip Culture - Final Catheter Tip Coagulase Negative Staph Group D Enterococcus 02/16/21 10:10 Blood Culture - Final Blood
[2021-02-20 16:38] LABS: Glucose,Whole Blood 177 mg/dL (75-99)
--- NOTE | 2021-02-20 19:45 | PN ---
PROGRESS NOTE DATE OF SERVICE: 02/20/2021 REASON FOR FOLLOW UP: Enterococcus faecalis bacteremia secondary to PermCath infection. INTERVAL HISTORY: The patient is afebrile. The patient is breathing slightly comfortably. The patient denies having any chest pain, shortness of breath or cough. No abdominal pain or diarrhea. PHYSICAL EXAMINATION: Blood pressure 104/63, pulse of 71, temperature 98.4. She is 100% on 3 L nasal cannula. General description is an elderly female lying in bed in no distress. Respiratory system: Unlabored breathing, decreased breath sounds in the base, no wheeze. Heart S1, S2. Regular rate and rhythm. Abdomen soft, no tenderness. LABS: Hemoglobin is 9.4, white count 12.1, BUN of 51, creatinine 5.51. Blood cultures 02/18 and 02/19 has been negative so far. DIAGNOSTIC IMPRESSION AND PLAN: Patient with Enterococcus faecalis bacteremia secondary to PermCath infection, catheter showing coagulase-negative Staph in addition to group D Enterococcus, however, blood culture only positive for Enterococcus faecalis. She is on Unasyn. If the blood culture from the remains to be negative, we will be able to place another PermCath and this was discussed with vascular surgeon this morning. MMODL / IJN: [id number] /
[2021-02-20 19:51] LABS: Glucose,Whole Blood 199 mg/dL (75-99)
[2021-02-20] MEDS: EZETIMIBE 10 MG TAB PO SCH (20:53)
--- NOTE | 2021-02-20 23:03 | P.PN ---
Subjective This is a pleasant 75 years old female with multiple medical problems presents with infected catheter of permacath, with positive blood culture with enterococcus, currently is being covered with Unasyn. Repeat blood cultures pending and if it is going to be negative then another permacath hemodialysis catheter will be placed tomorrow, to be followed by him on dialysis as patient has pulmonary congestion and with no urine output although her oxygen saturation is only on 3 L/m of oxygen. Objective - Vital Signs Vital signs: Vital Signs Temp 98.4 F 02/20/21 08:00 Pulse 74 02/20/21 19:33 Resp 16 02/20/21 16:00 BP 96/48 02/20/21 16:00 Pulse Ox 91 L 02/20/21 16:00 Intake & Output 02/20/21 02/20/21 02/21/21 06:59 18:59 06:59 Intake Total 108.55 1495.75 Balance 108.55 1495.75 Weight 63.5 kg 63.5 kg Intake: IV 100 0.9 KVO 100 Intake, IV Titration 108.55 175.75 Amount Ampicillin-Sulbactam 3 gm 100 In Sodium Chloride 0.9% 100 ml @ 200 mls/hr IVPB DAILY [facility] Rx#:[id number] Heparin Sod,Pork in 0.45% 108.55 75.75 NaCl 25,000 unit In 0.45 % NaCl 1 250ml.bag @ 12 UNITS/KG/HR 6 mls/hr IV . Q24H [facility] Rx#:[id number] Oral 1220 Other: Voiding Method Incontinent Incontinent # Voids 3 1 # Bowel Movements 1 - Exam -GENERAL: The patient is alert and oriented x3, not in any acute distress. Well developed, well nourished. Generally weak HEENT: Pupils are round and equally reacting to light. EOMI. No scleral icterus. No conjunctival pallor. Normocephalic, atraumatic. No pharyngeal erythema. No thyromegaly. CARDIOVASCULAR: S1 and S2 present. No murmurs, rubs, or gallops. PULMONARY: Chest is clear to auscultation, no wheezing or crackles. ABDOMEN: Soft, nontender, nondistended, normoactive bowel sounds. No palpable organomegaly. MUSCULOSKELETAL: No joint swelling or deformity. EXTREMITIES: No cyanosis, clubbing, or pedal edema. NEUROLOGICAL: Gross neurological examination did not reveal any focal deficits. SKIN: No rashes. no petechiae. - Labs CBC & Chem 7: 02/20/21 02:53 02/20/21 02:53 Labs: Abnormal Lab Results - Last 24 Hours (Table) 02/19/21 02/20/21 02/20/21 Range/Units 19:47 02:53 02:53 WBC 12.1 H (3.8-10.6) k/uL RBC 2.65 L (3.80-5.40) m/uL Hgb 9.4 L (11.4-16.0) gm/dL Hct 30.3 L (34.0-46.0) % MCV 114.7 H (80.0-100.0) fL MCH 35.6 H (25.0-35.0) pg RDW 17.1 H (11.5-15.5) % Neutrophils # 9.9 H (1.3-7.7) k/uL Lymphocytes # 0.9 L (1.0-4.8) k/uL Macrocytosis Marked A PT 12.2 H (9.0-12.0) sec INR 1.2 H (<1.2) APTT 31.6 H (22.0-30.0) sec Sodium (137-145) mmol/L Carbon Dioxide (22-30) mmol/L BUN (7-17) mg/dL Creatinine (0.52-1.04) mg/dL Glucose (74-99) mg/dL POC Glucose (mg/dL) 187 H (75-99) mg/dL 02/20/21 02/20/21 02/20/21 Range/Units 02:53 05:35 10:44 WBC (3.8-10.6) k/uL RBC (3.80-5.40) m/uL Hgb (11.4-16.0) gm/dL Hct (34.0-46.0) % MCV (80.0-100.0) fL MCH (25.0-35.0) pg RDW (11.5-15.5) % Neutrophils # (1.3-7.7) k/uL Lymphocytes # (1.0-4.8) k/uL Macrocytosis PT (9.0-12.0) sec INR (<1.2) APTT 35.4 H (22.0-30.0) sec Sodium 134 L (137-145) mmol/L Carbon Dioxide 20 L (22-30) mmol/L BUN 51 H (7-17) mg/dL Creatinine 5.51 H (0.52-1.04) mg/dL Glucose 143 H (74-99) mg/dL POC Glucose (mg/dL) 174 H (75-99) mg/dL 02/20/21 02/20/21 02/20/21 Range/Units 11:24 16:37 18:28 WBC (3.8-10.6) k/uL RBC (3.80-5.40) m/uL Hgb (11.4-16.0) gm/dL Hct (34.0-46.0) % MCV (80.0-100.0) fL MCH (25.0-35.0) pg RDW (11.5-15.5) % Neutrophils # (1.3-7.7) k/uL Lymphocytes # (1.0-4.8) k/uL Macrocytosis PT (9.0-12.0) sec INR (<1.2) APTT 44.1 H (22.0-30.0) sec Sodium (137-145) mmol/L Carbon Dioxide (22-30) mmol/L BUN (7-17) mg/dL Creatinine (0.52-1.04) mg/dL Glucose (74-99) mg/dL POC Glucose (mg/dL) 157 H 177 H (75-99) mg/dL Microbiology - Last 24 Hours (Table) 02/18/21 12:38 Blood Culture - Preliminary Blood No Growth after 48 hours 02/19/21 10:30 Blood Culture - Preliminary Blood No Growth after 24 hours 02/17/21 11:05 Gram Stain - Preliminary Pleural Fluid Body Fluid Culture - Preliminary 02/14/21 18:30 Blood Culture - Preliminary Blood No Growth after 120 hours 02/16/21 10:10 Blood Culture Gram Stain - Preliminary Blood 02/17/21 11:05 Anaerobic Culture - Preliminary Pleural Fluid Assessment and Plan Assessment: Enterococcus bacteremia secondary to infected hemodialysis catheter which is removed Pulmonary conditions with mild hypoxic respiratory failure secondary to missed hemodialysis End-stage renal disease on hemodialysis Chronic atrial fibrillation on Eliquis Status post pacemaker Plan: This is a pleasant 75 years old female with infected catheter and positive blood culture with enterococcus. Continue with Unasyn and follow-up repeat blood culture Val possible permacath placement tomorrow blood culture remains negative to be followed by hemodialysis Continue with heparin drip and transitioned back to Eliquis after permacath placement Several consultants on the case Labs and medication were reviewed.. Continue same treatment. Continue with symptomatic treatment. Resume home medication. Monitor lytes and vitals. DVT and GI prophylaxis. Further recommendationsas per clinical course of the patient DVT prophylaxis: heparin GI Prophylaxis: Pepcid Prognosis is guarded
[2021-02-21 05:51] LABS: Glucose,Whole Blood 189 mg/dL (75-99)
[2021-02-21] MEDS: SEVELAMER 800 MG TAB PO SCH ×4 (07:01→20:26)
[2021-02-21] MEDS: INSULIN ASPART (NovoLOG) 100 UNIT/ML VIAL SQ SCH ×4 (07:01→21:11)
[2021-02-21] MEDS: ALBUTEROL NEBULIZED 2.5 MG/3 ML INHALATION SCH ×4 (08:27→20:25)
[2021-02-21] MEDS: CYANOCOBALAMIN 500 MCG TAB PO SCH (10:32)
[2021-02-21] MEDS: MIDODRINE 5 MG TAB PO SCH (10:32)
[2021-02-21] MEDS: AMPICILLIN-SULBACTAM 3 GM in SODIUM CHLORIDE 0.9% 100 ML IVPB SCH ×2 (10:32)
[2021-02-21] MEDS: SODIUM BICARBONATE TAB 650 MG TAB PO SCH ×3 (10:33→20:26)
[2021-02-21] MEDS: FAMOTIDINE 20 MG/2 ML VIAL IV SCH ×2 (10:33→20:26)
[2021-02-21] MEDS: FOLIC ACID-VIT B COMPLEX-VIT C 1 CAP PO SCH (10:33)
[2021-02-21] MEDS: ASCORBIC ACID 500 MG TAB PO SCH (10:33)
[2021-02-21] MEDS: NYSTATIN 100,000UNIT/GM CREAM 30 GM TUBE TOPICAL SCH ×2 (10:33→21:02)
--- NOTE | 2021-02-21 11:04 | P.PN ---
Subjective Progress Note Date: 02/21/21 Principal diagnosis: Bilateral pleural effusion, left greater than right, pericardial effusion, status post pericardiocentesis On 02/17/2021 patient seen in follow-up on selective care unit, patient is status post pericardiocentesis with placement of a pigtail drain, postoperative day #2, and bilateral pleural effusions, left greater than right, status post left thoracentesis by interventional radiology with removal of 560 mL of pleural fluid. Follow-up chest x-ray after the procedure showed improvement in aeration of the left lung. Patient is currently on 4 L of oxygen, and his pulse ox is 97-100%, hemodynamically stable, he is afebrile. Patient's blood culture was p ositive for Enterococcus faecalis patient is on Rocephin for antibiotic coverage, there was a concern for possibly infected permacath which was removed, and catheter tip cultures have been ordered. Patient was initially covered with vancomycin, ID service is following and current abiotic coverage is just with Rocephin. he is breathing comfortably, he is more awake and alert on today's exam, no chest pain, no abdominal pain, no nausea or vomiting. No diarrhea. On 02/18/2021 patient seen in follow-up on selective care unit. Patient is awake and alert, in no acute distress, she is on 3 L of oxygen, with a pulse ox of 97%. No worsening dyspnea at rest, she does have exertional dyspnea. No fever or chills. Patient is incontinent of urine, she does avoid, it urine output is difficult to estimate as the patient is incontinent. She remains on antibiotics in the form of ceftriaxone and vancomycin for enterococcus bacteremia, her follow-up blood cultures have shown no growth thus far, last set was sent on 02/16/2021, her permacath catheter was removed by vascular surgery and catheter tip has been sent for culture, reported on the cultures thus far, patient is status post left-sided thoracentesis, so far pleural fluid cultures remain negative. Patient is supposed to have a new hemodialysis catheter inserted today by vascular surgery. On 02/20/2021 patient seen in follow-up on selective care unit. She is currently working with physical therapy, she sitting up on the edge of the bed. She is breathing comfortably, denies any dyspnea, no cough, no chest discomfort. Lung sounds reveal diminished breath sounds with dullness at the left base, and left pleural effusion is suspected, we will obtain follow-up chest x-ray later on today, however in terms of oxygenation it has remained stable, she is currently still on 3 L a pulse ox of 100%. The labs have been reviewed but cell count is stable, at 12.1, hemoglobin is 9.4, INR is 1.2, sodium is 134, renal profile slightly worse, with BUN of 51, creatinine is 5.51. No Significant edema involving lower extremities. Remains on antibiotics in the form of ampicillin for enterococcus bacteremia, her right subclavian permacath has been removed, and catheter tip also shows quite is negative staph and group D enterococcus. Follow blood cultures have shown no growth at the 24-hour roney. Pleural fluid culture is still pending, preliminary Gram stain showed no organisms. Pericardial catheter has been removed a few days ago. Blood pressure has been stable On 02/21/2021 patient seen in follow-up on selective care unit, she is awake and alert, slightly irritable, but denies any breathing issues, no shortness of breath, only occasional cough, no phlegm production, no complaints of chest pain, she remains on the same 3 L of supplemental oxygen that she was on for last few days. Her pulse ox is 93-97%, she's been afebrile, hemodynamically she has been stable, yesterday's follow-up chest x-ray showed recurrence of a moderately sized left-sided pleural effusion. Patient had her right subclavian permacath removed, and the catheter tip was showing evidence of D enterococcus, follow-up blood cultures have been sent, and have shown no growth thus far, final cultures are still pending, no fever or chills overnight. Patient is incontinent of small amount of urine, no worsening dyspnea, no worsening edema in bilateral lower extremities. No nausea no vomiting no diarrhea. She remains on antibiotics in the form of Unasyn., Objective - Vital Signs Vital signs: Vital Signs Temp 97.9 F 02/21/21 08:00 Pulse 74 02/21/21 08:41 Resp 18 02/21/21 08:00 BP 93/47 02/21/21 08:00 Pulse Ox 97 02/21/21 08:00 Intake & Output 02/20/21 02/21/21 02/21/21 18:59 06:59 18:59 Intake Total 1495.75 79 150 Balance 1495.75 79 150 Weight 63.5 kg 57 kg Intake: IV 100 0.9 KVO 100 Intake, IV Titration 175.75 79 Amount Ampicillin-Sulbactam 3 gm 100 In Sodium Chloride 0.9% 100 ml @ 200 mls/hr IVPB DAILY [facility] Rx#:[id number] Heparin Sod,Pork in 0.45% 75.75 79 NaCl 25,000 unit In 0.45 % NaCl 1 250ml.bag @ 12 UNITS/KG/HR 6 mls/hr IV . Q24H [facility] Rx#:[id number] Oral 1220 150 Other: Voiding Method Incontinent Incontinent Incontinent # Voids 1 1 # Bowel Movements 1 3 - Exam GENERAL EXAM: Alert, very pleasant, 75-year-old white male, on 3 L of oxygen and pulse ox of 97-100% comfortable in no apparent distress. HEAD: Normocephalic/atraumatic. EYES: Normal reaction of pupils, equal size. Conjunctiva pink, sclera white. NOSE: Clear with pink turbinates. THROAT: No erythema or exudates. NECK: No masses, no JVD, no thyroid enlargement, no adenopathy. CHEST: No chest wall deformity. Symmetrical expansion. LUNGS: Equal air entry with diminished breath sounds at the bases CVS: Regular rate and rhythm, normal S1 and S2, no gallops, no murmurs, no rubs ABDOMEN: Soft, nontender. No hepatosplenomegaly, normal bowel sounds, no guarding or rigidity. EXTREMITIES: No clubbing, no edema, no cyanosis, 2+ pulses and upper and lower extremities. MUSCULOSKELETAL: Muscle strength and tone normal. SPINE: No scoliosis or deformity SKIN: No rashes CENTRAL NERVOUS SYSTEM: Alert and oriented -3. No focal deficits, tone is normal in all 4 extremities. PSYCHIATRIC: Alert and oriented -3. Appropriate affect. Intact judgment and insight. - Labs CBC & Chem 7: 02/20/21 02:53 02/20/21 02:53 Labs: Abnormal Lab Results - Last 24 Hours (Table) 02/20/21 02/20/21 02/20/21 Range/Units 10:44 11:24 16:37 APTT 35.4 H (22.0-30.0) sec POC Glucose (mg/dL) 157 H 177 H (75-99) mg/dL 02/20/21 02/20/21 02/21/21 Range/Units 18:28 19:49 05:50 APTT 44.1 H (22.0-30.0) sec POC Glucose (mg/dL) 199 H 189 H (75-99) mg/dL 02/21/21 Range/Units 08:25 APTT 43.8 H (22.0-30.0) sec POC Glucose (mg/dL) (75-99) mg/dL Microbiology - Last 24 Hours (Table) 02/16/21 10:10 Blood Culture Gram Stain - Preliminary Blood Blood Culture - Preliminary Group D Enterococcus 02/17/21 11:05 Gram Stain - Final Pleural Fluid Body Fluid Culture - Final 02/14/21 18:30 Blood Culture - Final Blood No Growth after 144 hours 02/18/21 12:38 Blood Culture - Preliminary Blood No Growth after 48 hours 02/19/21 10:30 Blood Culture - Preliminary Blood No Growth after 24 hours Assessment and Plan Plan: Assessment: #1. Pericardial effusion, status post pericardiocentesis would removal of 300 mL of bloody fluid, postoperative day number 4 #2. Bilateral pleural effusions, left greater than right, status post left thoracentesis by interventional radiology today on 02/17/2021 and removal of 560 cc of pleural fluid which was sent for analysis, pleural fluid cultures remain negative thus far, final culture is pending #3. Enterococcus faecalis bacteremia, was on Rocephin and vancomycin, currently just on Rocephin, ID service is following. This was likely related to line infection, permacath was removed from the right subclavian and catheter tip was also positive for group D enterococcus and coagulase-negative staph #4. Status post removal of right permacath, cath tip was sent for culture #5. Acute on chronic hypoxic respiratory failure secondary to sepsis, pericardial effusion, and bilateral pleural effusions #6. End-stage renal disease on hemodialysis #7. Chronic A. fib on Eliquis, Eliquis is currently on hold #8. Permanent pacemaker #9. COPD on home oxygen at 4 L #10. Diabetes mellitus type 2 #11. History of hypertension #12. History of hyperlipidemia #13. History of TIA in 2019 #14. Recent history of a fall Plan: Denies any worsening dyspnea She still remains on 3 L of oxygen Her chest x-ray has been noted We'll monitor for worsening breathing, worsening hypoxia and increasing left- sided pleural effusion Patient is awaiting on reinsertion of hemodialysis catheter and restarting of the hemodialysis treatments Awaiting results of follow-up blood cultures HD catheter will be reinserted once clearance has been received from ID service We will continue to monitor her workup breathing, and for signs of increasing Will likely need left-sided thoracentesis if breathing becomes worse, and if she builds up more fluid We'll continue to monitor I performed a history & physical examination of the patient and discussed their management with my nurse practitioner, Mallorie Zavala. I reviewed the nurse practitioner's note and agree with the documented findings and plan of care. Lung sounds are positive for diminished breath sounds. The findings and the impression was discussed with the patient. I attest to the documentation by the nurse practitioner. Time with Patient: Less than 30
[2021-02-21 12:04] LABS: Glucose,Whole Blood 170 mg/dL (75-99)
--- NOTE | 2021-02-21 13:05 | P.PN ---
Subjective This is a pleasant 75 years old female with multiple medical problems presents with infected catheter of permacath, with positive blood culture with enterococcus, currently is being covered with Unasyn. Repeat blood cultures pending and if it is going to be negative then another permacath hemodialysis catheter will be placed tomorrow, to be followed by him on dialysis as patient has pulmonary congestion and with no urine output although her oxygen saturation is only on 3 L/m of oxygen. 02/21/2021 Patient is clinically the same, she is a little confused which looks like this is her baseline. Patient oriented oriented. Permacath is healing and closed. Patient Is pending ID team clearance to place another dialysis catheter. She is hemodynamically stable. Oxygen saturation is acceptable. Patient remains on Unasyn currently Objective - Vital Signs Vital signs: Vital Signs Temp 97.9 F 02/21/21 08:00 Pulse 74 02/21/21 08:41 Resp 18 02/21/21 08:00 BP 93/47 02/21/21 08:00 Pulse Ox 97 02/21/21 08:00 Intake & Output 02/20/21 02/21/21 02/21/21 18:59 06:59 18:59 Intake Total 1495.75 79 150 Balance 1495.75 79 150 Weight 63.5 kg 57 kg Intake: IV 100 0.9 KVO 100 Intake, IV Titration 175.75 79 Amount Ampicillin-Sulbactam 3 gm 100 In Sodium Chloride 0.9% 100 ml @ 200 mls/hr IVPB DAILY [facility] Rx#:[id number] Heparin Sod,Pork in 0.45% 75.75 79 NaCl 25,000 unit In 0.45 % NaCl 1 250ml.bag @ 12 UNITS/KG/HR 6 mls/hr IV . Q24H [facility] Rx#:[id number] Oral 1220 150 Other: Voiding Method Incontinent Incontinent Incontinent # Voids 1 1 # Bowel Movements 1 3 - Exam -GENERAL: The patient is alert and oriented x3, not in any acute distress. Well developed, well nourished. Generally weak HEENT: Pupils are round and equally reacting to light. EOMI. No scleral icterus. No conjunctival pallor. Normocephalic, atraumatic. No pharyngeal erythema. No thyromegaly. CARDIOVASCULAR: S1 and S2 present. No murmurs, rubs, or gallops. PULMONARY: Chest is clear to auscultation, no wheezing or crackles. ABDOMEN: Soft, nontender, nondistended, normoactive bowel sounds. No palpable organomegaly. MUSCULOSKELETAL: No joint swelling or deformity. EXTREMITIES: No cyanosis, clubbing, or pedal edema. NEUROLOGICAL: Gross neurological examination did not reveal any focal deficits. SKIN: No rashes. no petechiae. - Labs CBC & Chem 7: 02/20/21 02:53 02/20/21 02:53 Labs: Abnormal Lab Results - Last 24 Hours (Table) 02/20/21 02/20/21 02/20/21 Range/Units 16:37 18:28 19:49 APTT 44.1 H (22.0-30.0) sec POC Glucose (mg/dL) 177 H 199 H (75-99) mg/dL 02/21/21 02/21/21 02/21/21 Range/Units 05:50 08:25 11:58 APTT 43.8 H (22.0-30.0) sec POC Glucose (mg/dL) 189 H 170 H (75-99) mg/dL Microbiology - Last 24 Hours (Table) 02/19/21 10:30 Blood Culture - Preliminary Blood No Growth after 48 hours 02/16/21 10:10 Blood Culture Gram Stain - Preliminary Blood Blood Culture - Preliminary Group D Enterococcus 02/17/21 11:05 Gram Stain - Final Pleural Fluid Body Fluid Culture - Final 02/14/21 18:30 Blood Culture - Final Blood No Growth after 144 hours 02/18/21 12:38 Blood Culture - Preliminary Blood No Growth after 48 hours Assessment and Plan Assessment: Enterococcus bacteremia secondary to infected hemodialysis catheter which is removed Pulmonary conditions with mild hypoxic respiratory failure secondary to missed hemodialysis End-stage renal disease on hemodialysis Chronic atrial fibrillation on Eliquis Status post pacemaker Plan: This is a pleasant 75 years old female with infected catheter and positive blood culture with enterococcus. Continue with Unasyn and follow-up repeat blood culture Val possible permacath placement tomorrow blood culture remains negative to be followed by hemodialysis Continue with heparin drip and transitioned back to Eliquis after permacath placement Several consultants on the case Labs and medication were reviewed.. Continue same treatment. Continue with symptomatic treatment. Resume home medication. Monitor lytes and vitals. DVT and GI prophylaxis. Further recommendationsas per clinical course of the patient DVT prophylaxis: heparin GI Prophylaxis: Pepcid Prognosis is guarded
--- NOTE | 2021-02-21 13:37 | P.PN ---
Subjective This is a pleasant 75-year-old female past medical history significant for persistent atrial fibrillation on Eliquis, sick sinus syndrome status post pacemaker, morbid obesity, hypertension, dyslipidemia, type 2 diabetes, non- rheumatic mitral valve insufficiency, GERD, end-stage renal disease on dialysis Saturday. Earlier this month patient has sustained a fall with head, and was at [facility]. She follows in the office with Dr. Alvarado. We have been asked to see in consultation for bradycardia event on 02/14. On 02/14/2021 evening patient became hypotensive on dialysis, dialysis was stopped. Patient apparently was bradycardic but was not on telemetry so this was not captured. Patient was transferred from [facility] due to worsening shortness of breath and altered mental status and needing hemodialysis. Patient was found to be bacteremic with infection at her right hemodialysis right IJ catheter. Patient was also found to have a large pericardial effusion and pleural effusion. She underwent left sided thoracentesis with 560 mL removed and pericardiocentesis with 300 mL removed. Patient seen and examined at bedside, no acute distress. She is awake and alert and oriented x person. She denies any chest pain, shortness of breath, lightheadedness, dizziness. She is currently hemodynamically stable. Blood pressure 93/47, heart rate 60, afebrile, maintaining oxygen saturations 97% on 3 L nasal cannula Telemetry reviewed, patient is V paced in the 60s. Laboratory data reviewed, labs not resulted today. Patient currently maintained on IV heparin drip, midodrine 10 mg Saturday. PHYSICAL EXAMINATION CONSTITUTIONAL: No apparent distress HEENT: Head with trauma to foreard and bruising around bilateral eyes. No JVD. No carotid bruit. CHEST EXAMINATION: Lungs are diminished bilaterally. HEART EXAMINATION: Irregular rate and rhythm. S1, S2 heard. Systolic murmur noted ABDOMEN: Soft, nontender. Positive bowel sounds. EXTREMITIES: 2+ peripheral pulses, no lower extremity edema, bilateral arm edema present, and no calf tenderness. NEUROLOGIC EXAMINATION: Awake alert and oriented to person. She knows she is in the hospital. ASSESSMENT Altered mental status Pericardial effusion, status post pericardiocentesis would removal of 300 mL of bloody fluid on 02/16/21 Bilateral pleural effusions, left greater than right, status post left thoracentesis by interventional radiology 02/17/2021 and removal of 560 cc Enterococcus faecalis bacteremia, ID service is following Status post removal of right permacath, cath tip was sent for culture Acute on chronic hypoxic with history failure End-stage renal disease on hemodialysis Type 2 diabetes History of hypertension on midodrine Episode of hypotension during dialysis 02/14/21 Permanent atrial fibrillation on Eliquis at home, currently on IV heparin History of Recent head injury early this month PLAN -Continue anticoagulation with IV heparin, recommend transitioning back to patient's Eliquis once ok after permacath placement -We will continue current medical therapy -Plan for patient to undergo possible dialysis catheter placement -Pulmonary following, Nephrology following and ID following -Further recommendations based on clinical course Nurse Practitioner note has been reviewed, I agree with a documented findings and plan of care. Patient was seen and examined. Objective - Vital Signs Vital signs: Vital Signs Temp 97.9 F 02/21/21 08:00 Pulse 60 02/21/21 12:00 Resp 18 02/21/21 12:00 BP 94/46 02/21/21 12:00 Pulse Ox 94 L 02/21/21 12:00 Intake & Output 02/20/21 02/21/21 02/21/21 18:59 06:59 18:59 Intake Total 1495.75 79 150 Balance 1495.75 79 150 Weight 63.5 kg 57 kg Intake: IV 100 0.9 KVO 100 Intake, IV Titration 175.75 79 Amount Ampicillin-Sulbactam 3 gm 100 In Sodium Chloride 0.9% 100 ml @ 200 mls/hr IVPB DAILY [facility] Rx#:[id number] Heparin Sod,Pork in 0.45% 75.75 79 NaCl 25,000 unit In 0.45 % NaCl 1 250ml.bag @ 12 UNITS/KG/HR 6 mls/hr IV . Q24H [facility] Rx#:[id number] Oral 1220 150 Other: Voiding Method Incontinent Incontinent Incontinent # Voids 1 1 # Bowel Movements 1 3 - Labs CBC & Chem 7: 02/20/21 02:53 02/20/21 02:53 Labs: Abnormal Lab Results - Last 24 Hours (Table) 02/20/21 02/20/21 02/20/21 Range/Units 16:37 18:28 19:49 APTT 44.1 H (22.0-30.0) sec POC Glucose (mg/dL) 177 H 199 H (75-99) mg/dL 02/21/21 02/21/21 02/21/21 Range/Units 05:50 08:25 11:58 APTT 43.8 H (22.0-30.0) sec POC Glucose (mg/dL) 189 H 170 H (75-99) mg/dL Microbiology - Last 24 Hours (Table) 02/17/21 11:05 Anaerobic Culture - Final Pleural Fluid 02/19/21 10:30 Blood Culture - Preliminary Blood No Growth after 48 hours 02/16/21 10:10 Blood Culture Gram Stain - Preliminary Blood Blood Culture - Preliminary Group D Enterococcus 02/17/21 11:05 Gram Stain - Final Pleural Fluid Body Fluid Culture - Final 02/14/21 18:30 Blood Culture - Final Blood No Growth after 144 hours 02/18/21 12:38 Blood Culture - Preliminary Blood No Growth after 48 hours
--- NOTE | 2021-02-21 14:14 | PN ---
PROGRESS NOTE Patient is seen for followup for end-stage renal disease. Her blood cultures from February 18 are still negative. This morning patient is awake, comfortable. She denies any significant complaints. We are still waiting for clearance from ID for placement of dialysis catheter. It appears that Infectious Disease would like to wait if possible until tomorrow as her previous blood cultures became positive much later on. PHYSICAL EXAMINATION: On examination today patient denies any chest pains or shortness of breath. Blood pressure 93/47, heart rate 60 per minute, she is afebrile. Examination of the heart S1, S2. Examination of the lungs, bilateral breath sounds are heard. Abdomen is soft, nontender, morbidly obese. Examination of lower extremities: Edema trace bilaterally. [employer] exam grossly intact. LABS: Not available from today. Serum potassium 4.2 yesterday. ASSESSMENT: 1. End-stage renal disease, on hemodialysis on a Saturday, , Saturday schedule as outpatient, currently without an access which was removed for Enterococcus bacteremia and PermCath related infection. We will likely place the dialysis catheter tomorrow and plan for hemodialysis tomorrow. Infectious Disease would like to wait one more day. 2. Enterococcus bacteremia status post removal of dialysis catheter. 3. Anemia of chronic disease. 4. Metabolic acidosis from end-stage renal disease. PLAN: Hemodialysis in a.m. post placement of dialysis catheter which can be done tomorrow. MMODL / IJN: [id number] /
[2021-02-21] MEDS: ACETAMINOPHEN TAB 325 MG TAB PO PRN (15:52)
[2021-02-21 17:20] LABS: Glucose,Whole Blood 202 mg/dL (75-99)
[2021-02-21] MEDS ORDERED: HYDROcodone/APAP 5-325MG 1 EACH TAB PO PRN ×2 (18:52→21:58)
[2021-02-21 20:09] LABS: Glucose,Whole Blood 165 mg/dL (75-99)
[2021-02-21] MEDS: EZETIMIBE 10 MG TAB PO SCH (20:26)
[2021-02-21] MEDS: HEPARIN SOD,PORK IN 0.45% NACL 25,000 UNIT in 0.45% NACL 1 250ML.BAG IV SCH (20:30)
--- NOTE | 2021-02-22 05:04 | PN ---
PROGRESS NOTE DATE OF SERVICE: 02/21/2021. REASON FOR FOLLOW UP: Enterococcus faecalis bacteremia secondary to PermCath infection. INTERVAL HISTORY: Patient is afebrile. The patient is breathing comfortably. Patient denies having any chest pain. No shortness of breath. Occasional cough. No abdominal pain. No diarrhea. PHYSICAL EXAMINATION: Blood pressure is 113/52 with a pulse of 83, temperature 98.2. She is 93% on 4 L nasal cannula. General description is an elderly female lying in bed in no distress. Respiratory system: Unlabored breathing, decreased breath sounds in the base, with no wheeze. Heart S1, S2. Regular rate and rhythm. Abdomen soft, no tenderness. LABS: The blood cultures done on 02/18 and 02/19 have been negative so far. DIAGNOSTIC IMPRESSION AND PLAN: Patient with enterococcus faecalis bacteremia source likely PermCath has been discontinued. Patient is covered with Unasyn. If the blood culture remains to be negative by tomorrow, she will be able to go for another pump catheter placement. This was discussed with the cisco engineer. MMODL / IJN: [id number] /
[2021-02-22 06:09] LABS: Glucose,Whole Blood 195 mg/dL (75-99)
[2021-02-22] MEDS: SEVELAMER 800 MG TAB PO SCH ×4 (06:41→20:31)
[2021-02-22] MEDS: INSULIN ASPART (NovoLOG) 100 UNIT/ML VIAL SQ SCH ×4 (06:41→21:32)
[2021-02-22 06:59] LABS: Calcium 9.6 mg/dL (8.4-10.2); Potassium 4.6 mmol/L (3.5-5.1)
[2021-02-22] MEDS: ALBUTEROL NEBULIZED 2.5 MG/3 ML INHALATION SCH ×4 (07:26→19:51)
[2021-02-22] MEDS: ASCORBIC ACID 500 MG TAB PO SCH (09:27)
[2021-02-22] MEDS: SODIUM BICARBONATE TAB 650 MG TAB PO SCH ×3 (09:28→21:32)
[2021-02-22] MEDS: FAMOTIDINE 20 MG/2 ML VIAL IV SCH (09:28)
[2021-02-22] MEDS: MIDODRINE 5 MG TAB PO SCH (09:28)
[2021-02-22] MEDS: FOLIC ACID-VIT B COMPLEX-VIT C 1 CAP PO SCH (09:29)
[2021-02-22] MEDS: CALCIUM CARBONATE 500 MG CHEWABLE PO PRN (09:29)
[2021-02-22] MEDS: CYANOCOBALAMIN 500 MCG TAB PO SCH (09:32)
[2021-02-22] MEDS: AMPICILLIN-SULBACTAM 3 GM in SODIUM CHLORIDE 0.9% 100 ML IVPB SCH (09:33)
[2021-02-22] MEDS: NYSTATIN 100,000UNIT/GM CREAM 30 GM TUBE TOPICAL SCH ×2 (09:33→20:42)
--- NOTE | 2021-02-22 12:04 | P.PN ---
Subjective This is a pleasant 75-year-old female past medical history significant for persistent atrial fibrillation on Eliquis, sick sinus syndrome status post pacemaker, morbid obesity, hypertension, dyslipidemia, type 2 diabetes, non- rheumatic mitral valve insufficiency, GERD, end-stage renal disease on dialysis Saturday. Earlier this month patient has sustained a fall with head, and was at [facility]. She follows in the office with Dr. Alvarado. We have been asked to see in consultation for bradycardia event on 02/14. On 02/14/2021 evening patient became hypotensive on dialysis, dialysis was stopped. Patient apparently was bradycardic but was not on telemetry so this was not captured. Patient's pacemaker was interrogated and was found to be off, the device was turned on VV1 lead to 60bmp. Patient was transferred from [facility] due to worsening shortness of breath and altered mental status and needing hemodialysis. Patient was found to be bacteremic with infection at her right hemodialysis right IJ catheter. Patient was also found to have a large pericardial effusion and pleural effusion. She underwent left sided thoracentesis with 560 mL removed and pericardiocentesis with 300 mL removed. Patient seen and examined at bedside, no acute distress. She is awake and alert and oriented x person. She denies any chest pain, shortness of breath, lightheadedness, dizziness. She is currently hemodynamically stable. Blood pressure blood pressure 127/56, heart rate 61, afebrile, maintaining oxygen saturations 94% on room air Telemetry reviewed, patient is V paced in the 60s. Laboratory data reviewed, sodium 135, potassium 4.6, BUN 60, serum, and 6.1. Patient currently maintained on IV heparin drip, midodrine 10 mg Saturday. PHYSICAL EXAMINATION CONSTITUTIONAL: No apparent distress HEENT: Head with trauma to foreard and bruising around bilateral eyes. No JVD. No carotid bruit. CHEST EXAMINATION: Lungs are diminished bilaterally. HEART EXAMINATION: Irregular rate and rhythm. S1, S2 heard. Systolic murmur noted ABDOMEN: Soft, nontender. Positive bowel sounds. EXTREMITIES: 2+ peripheral pulses, no lower extremity edema, bilateral arm edema present, and no calf tenderness. NEUROLOGIC EXAMINATION: Awake alert and oriented to person. She knows she is in the hospital. ASSESSMENT Altered mental status Pericardial effusion, status post pericardiocentesis would removal of 300 mL of bloody fluid on 02/16/21 Bilateral pleural effusions, left greater than right, status post left thoracentesis by interventional radiology 02/17/2021 and removal of 560 cc Enterococcus faecalis bacteremia, ID service is following Status post removal of right permacath, cath tip was sent for culture Acute on chronic hypoxic with history failure End-stage renal disease on hemodialysis Type 2 diabetes History of hypertension on midodrine Episode of hypotension during dialysis 02/14/21 Permanent atrial fibrillation on Eliquis at home, currently on IV heparin History of Recent head injury early this month PLAN -Continue anticoagulation with IV heparin, recommend transitioning back to p atient's Eliquis once ok after permacath placement -We will continue current medical therapy -Plan for patient to undergo possible dialysis catheter placement today -Pulmonary following, Nephrology following and ID following -Patient is stable from cardiology perspective, we will sign off at this time. Please reach out with further questions or concerns. -Patient to follow up with Dr. Alvarado as an outpatient Nurse Practitioner note has been reviewed, I agree with a documented findings and plan of care. Patient was seen and examined. Objective - Vital Signs Vital signs: Vital Signs Temp 97.8 F 02/22/21 08:00 Pulse 89 02/22/21 08:00 Resp 18 02/22/21 08:00 BP 127/56 02/22/21 08:00 Pulse Ox 94 L 02/22/21 08:00 Intake & Output 02/21/21 02/22/21 02/22/21 18:59 06:59 18:59 Intake Total 460 542.333 150 Balance 460 542.333 150 Intake: IV 70 0.9 KVO 70 Intake, IV Titration 242.333 Amount Heparin Sod,Pork in 0.45% 242.333 NaCl 25,000 unit In 0.45 % NaCl 1 250ml.bag @ 12 UNITS/KG/HR 6 mls/hr IV . Q24H [facility] Rx#:[id number] Oral 390 300 150 Other: Voiding Method Incontinent Incontinent Incontinent # Voids 1 2 # Bowel Movements 1 2 - Labs CBC & Chem 7: 02/20/21 02:53 02/22/21 06:18 Labs: Abnormal Lab Results - Last 24 Hours (Table) 02/21/21 02/21/21 02/21/21 Range/Units 11:58 17:16 20:07 APTT (22.0-30.0) sec Sodium (137-145) mmol/L Carbon Dioxide (22-30) mmol/L BUN (7-17) mg/dL Creatinine (0.52-1.04) mg/dL Glucose (74-99) mg/dL POC Glucose (mg/dL) 170 H 202 H 165 H (75-99) mg/dL 02/22/21 02/22/21 02/22/21 Range/Units 06:08 06:18 06:18 APTT 36.5 H (22.0-30.0) sec Sodium 135 L (137-145) mmol/L Carbon Dioxide 17 L (22-30) mmol/L BUN 60 H (7-17) mg/dL Creatinine 6.18 H (0.52-1.04) mg/dL Glucose 145 H (74-99) mg/dL POC Glucose (mg/dL) 195 H (75-99) mg/dL Microbiology - Last 24 Hours (Table) 02/18/21 12:38 Blood Culture - Preliminary Blood No Growth after 72 hours 02/17/21 11:05 Anaerobic Culture - Final Pleural Fluid 02/19/21 10:30 Blood Culture - Preliminary Blood No Growth after 48 hours 02/16/21 10:10 Blood Culture Gram Stain - Preliminary Blood Blood Culture - Preliminary Group D Enterococcus 02/17/21 11:05 Gram Stain - Final Pleural Fluid Body Fluid Culture - Final
[2021-02-22 12:08] LABS: Glucose,Whole Blood 182 mg/dL (75-99)
--- NOTE | 2021-02-22 13:29 | P.PN ---
Subjective Progress Note Date: 02/22/21 Principal diagnosis: Bilateral pleural effusion, left greater than right, pericardial effusion, status post pericardiocentesis On 02/17/2021 patient seen in follow-up on selective care unit, patient is status post pericardiocentesis with placement of a pigtail drain, postoperative day #2, and bilateral pleural effusions, left greater than right, status post left thoracentesis by interventional radiology with removal of 560 mL of pleural fluid. Follow-up chest x-ray after the procedure showed improvement in aeration of the left lung. Patient is currently on 4 L of oxygen, and his pulse ox is 97-100%, hemodynamically stable, he is afebrile. Patient's blood culture was p ositive for Enterococcus faecalis patient is on Rocephin for antibiotic coverage, there was a concern for possibly infected permacath which was removed, and catheter tip cultures have been ordered. Patient was initially covered with vancomycin, ID service is following and current abiotic coverage is just with Rocephin. he is breathing comfortably, he is more awake and alert on today's exam, no chest pain, no abdominal pain, no nausea or vomiting. No diarrhea. On 02/18/2021 patient seen in follow-up on selective care unit. Patient is awake and alert, in no acute distress, she is on 3 L of oxygen, with a pulse ox of 97%. No worsening dyspnea at rest, she does have exertional dyspnea. No fever or chills. Patient is incontinent of urine, she does avoid, it urine output is difficult to estimate as the patient is incontinent. She remains on antibiotics in the form of ceftriaxone and vancomycin for enterococcus bacteremia, her follow-up blood cultures have shown no growth thus far, last set was sent on 02/16/2021, her permacath catheter was removed by vascular surgery and catheter tip has been sent for culture, reported on the cultures thus far, patient is status post left-sided thoracentesis, so far pleural fluid cultures remain negative. Patient is supposed to have a new hemodialysis catheter inserted today by vascular surgery. On 02/20/2021 patient seen in follow-up on selective care unit. She is currently working with physical therapy, she sitting up on the edge of the bed. She is breathing comfortably, denies any dyspnea, no cough, no chest discomfort. Lung sounds reveal diminished breath sounds with dullness at the left base, and left pleural effusion is suspected, we will obtain follow-up chest x-ray later on today, however in terms of oxygenation it has remained stable, she is currently still on 3 L a pulse ox of 100%. The labs have been reviewed but cell count is stable, at 12.1, hemoglobin is 9.4, INR is 1.2, sodium is 134, renal profile slightly worse, with BUN of 51, creatinine is 5.51. No Significant edema involving lower extremities. Remains on antibiotics in the form of ampicillin for enterococcus bacteremia, her right subclavian permacath has been removed, and catheter tip also shows quite is negative staph and group D enterococcus. Follow blood cultures have shown no growth at the 24-hour roney. Pleural fluid culture is still pending, preliminary Gram stain showed no organisms. Pericardial catheter has been removed a few days ago. Blood pressure has been stable On 02/21/2021 patient seen in follow-up on selective care unit, she is awake and alert, slightly irritable, but denies any breathing issues, no shortness of breath, only occasional cough, no phlegm production, no complaints of chest pain, she remains on the same 3 L of supplemental oxygen that she was on for last few days. Her pulse ox is 93-97%, she's been afebrile, hemodynamically she has been stable, yesterday's follow-up chest x-ray showed recurrence of a moderately sized left-sided pleural effusion. Patient had her right subclavian permacath removed, and the catheter tip was showing evidence of D enterococcus, follow-up blood cultures have been sent, and have shown no growth thus far, final cultures are still pending, no fever or chills overnight. Patient is incontinent of small amount of urine, no worsening dyspnea, no worsening edema in bilateral lower extremities. No nausea no vomiting no diarrhea. She remains on antibiotics in the form of Unasyn., On 02/22/2021 patient seen in follow-up on selective care unit, she seems to be in moderate to severe amount of distress, she is complaining of sharp abdominal pain, abdomen is soft, however in the upper midabdomen there is tenderness to palpation. And CT of the abdomen and pelvis has already been ordered by the primary care service and is pending at this time. Otherwise she denies any worsening dyspnea, remains on 4 L of oxygen pulse ox of 95%, lung sounds are diminished at the bases, her chest x-ray from a couple days ago showed increasing left-sided pleural effusion, however clinically patient has been maintaining her O2 saturations, and denying any chest discomfort or worsening dyspnea. Her follow-up blood culture from 02/18/2021 has shown no growth, and that she is supposed to have a new permacath dialysis catheter inserted. Her heparin infusion has been on hold, today's labs have been reviewed, BUN 60, creatinine 6.18. There is a mild lower extremity edema. And patient continues on Unasyn for group D enterococcus bacteremia related to permacath line infectio n. Objective - Vital Signs Vital signs: Vital Signs Temp 98 F 02/22/21 12:00 Pulse 60 02/22/21 12:22 Resp 18 02/22/21 12:00 BP 119/58 02/22/21 12:00 Pulse Ox 95 02/22/21 12:00 Intake & Output 02/21/21 02/22/21 02/22/21 18:59 06:59 18:59 Intake Total 460 542.333 150 Balance 460 542.333 150 Intake: IV 70 0.9 KVO 70 Intake, IV Titration 242.333 Amount Heparin Sod,Pork in 0.45% 242.333 NaCl 25,000 unit In 0.45 % NaCl 1 250ml.bag @ 12 UNITS/KG/HR 6 mls/hr IV . Q24H [facility] Rx#:[id number] Oral 390 300 150 Other: Voiding Method Incontinent Incontinent Incontinent # Voids 1 2 # Bowel Movements 1 2 - Exam GENERAL EXAM: Alert, very pleasant, 75-year-old white male, on 3 L of oxygen and pulse ox of 97-100% comfortable in no apparent distress. HEAD: Normocephalic/atraumatic. EYES: Normal reaction of pupils, equal size. Conjunctiva pink, sclera white. NOSE: Clear with pink turbinates. THROAT: No erythema or exudates. NECK: No masses, no JVD, no thyroid enlargement, no adenopathy. CHEST: No chest wall deformity. Symmetrical expansion. LUNGS: Equal air entry with diminished breath sounds at the bases CVS: Regular rate and rhythm, normal S1 and S2, no gallops, no murmurs, no rubs ABDOMEN: Soft, nontender. No hepatosplenomegaly, normal bowel sounds, no guarding or rigidity. EXTREMITIES: No clubbing, no edema, no cyanosis, 2+ pulses and upper and lower extremities. MUSCULOSKELETAL: Muscle strength and tone normal. SPINE: No scoliosis or deformity SKIN: No rashes CENTRAL NERVOUS SYSTEM: Alert and oriented -3. No focal deficits, tone is normal in all 4 extremities. PSYCHIATRIC: Alert and oriented -3. Appropriate affect. Intact judgment and insight. - Labs CBC & Chem 7: 02/20/21 02:53 02/22/21 06:18 Labs: Abnormal Lab Results - Last 24 Hours (Table) 02/21/21 02/21/21 02/22/21 Range/Units 17:16 20:07 06:08 APTT (22.0-30.0) sec Sodium (137-145) mmol/L Carbon Dioxide (22-30) mmol/L BUN (7-17) mg/dL Creatinine (0.52-1.04) mg/dL Glucose (74-99) mg/dL POC Glucose (mg/dL) 202 H 165 H 195 H (75-99) mg/dL 02/22/21 02/22/21 02/22/21 Range/Units 06:18 06:18 12:06 APTT 36.5 H (22.0-30.0) sec Sodium 135 L (137-145) mmol/L Carbon Dioxide 17 L (22-30) mmol/L BUN 60 H (7-17) mg/dL Creatinine 6.18 H (0.52-1.04) mg/dL Glucose 145 H (74-99) mg/dL POC Glucose (mg/dL) 182 H (75-99) mg/dL Microbiology - Last 24 Hours (Table) 02/19/21 10:30 Blood Culture - Preliminary Blood No Growth after 72 hours 02/18/21 12:38 Blood Culture - Preliminary Blood No Growth after 72 hours 02/17/21 11:05 Anaerobic Culture - Final Pleural Fluid Assessment and Plan Plan: Assessment: #1. Pericardial effusion, status post pericardiocentesis would removal of 300 mL of bloody fluid, postoperative day number 5, pericardial drain has since been removed #2. Bilateral pleural effusions, left greater than right, status post left thoracentesis by interventional radiology today on 02/17/2021 and removal of 560 cc of pleural fluid which was sent for analysis, pleural fluid cultures showed no growth #3. Enterococcus faecalis bacteremia, was on Rocephin and vancomycin, currently just on Rocephin, ID service is following. This was likely related to line infection, permacath was removed from the right subclavian and catheter tip was also positive for group D enterococcus and coagulase-negative staph #4. Status post removal of right permacath, cath tip was sent for culture #5. Acute on chronic hypoxic respiratory failure secondary to sepsis, pericardial effusion, and bilateral pleural effusions #6. End-stage renal disease on hemodialysis #7. Chronic A. fib on Eliquis, Eliquis is currently on hold #8. Permanent pacemaker #9. COPD on home oxygen at 4 L #10. Diabetes mellitus type 2 #11. History of hypertension #12. History of hyperlipidemia #13. History of TIA in 2019 #14. Recent history of a fall Plan: Patient is supposed to have a new permacath hemodialysis catheter put in today Follow blood culture from the 02/18/2021 has remained negative No worsening dyspnea, other than dyspnea related to abdominal discomfort She is having some sharp abdominal pain, but abdomen is soft, CT of the abdomen and pelvis has reportedly been ordered by the primary care service Patient will need hemodialysis restart it on today's labs have been noted Incentive spirometry use if able to do it. If there is any worsening dyspnea, or worsening of oxygenation will need left- sided thoracentesis We'll continue to closely follow I performed a history & physical examination of the patient and discussed their management with my nurse practitioner, Mallorie Zavala. I reviewed the nurse practitioner's note and agree with the documented findings and plan of care. Lung sounds are positive for diminished breath sounds. The findings and the impression was discussed with the patient. I attest to the documentation by the nurse practitioner. Time with Patient: Less than 30
--- NOTE | 2021-02-22 13:51 | P.PN ---
Subjective This is a pleasant 75 years old female with multiple medical problems presents with infected catheter of permacath, with positive blood culture with enterococcus, currently is being covered with Unasyn. Repeat blood cultures pending and if it is going to be negative then another permacath hemodialysis catheter will be placed tomorrow, to be followed by him on dialysis as patient has pulmonary congestion and with no urine output although her oxygen saturation is only on 3 L/m of oxygen. 02/21/2021 Patient is clinically the same, she is a little confused which looks like this is her baseline. Patient oriented oriented. Permacath is healing and closed. Patient Is pending ID team clearance to place another dialysis catheter. She is hemodynamically stable. Oxygen saturation is acceptable. Patient remains on Unasyn currently 02/22/2021 Patient more sleepy today after she got those [place] yesterday which were discontinue with. Given her renal function and to return to avoid narcotics as it may cause his aspiration and other problems for the patient. Patient vitals are stable. Creatinine is elevated which is expected as she is pending hemodialysis Blood culture are still negative and patient most likely will be cleared by ID team today to go for another permacath placement, that's done her anticoagulation can be switched to Eliquis. Patient currently is covered with Unasyn Objective - Vital Signs Vital signs: Vital Signs Temp 98 F 02/22/21 12:00 Pulse 60 02/22/21 12:22 Resp 18 02/22/21 12:00 BP 119/58 02/22/21 12:00 Pulse Ox 95 02/22/21 12:00 Intake & Output 02/21/21 02/22/21 02/22/21 18:59 06:59 18:59 Intake Total 460 542.333 150 Balance 460 542.333 150 Intake: IV 70 0.9 KVO 70 Intake, IV Titration 242.333 Amount Heparin Sod,Pork in 0.45% 242.333 NaCl 25,000 unit In 0.45 % NaCl 1 250ml.bag @ 12 UNITS/KG/HR 6 mls/hr IV . Q24H REPLACED BY [facility] Rx#:[id number] Oral 390 300 150 Other: Voiding Method Incontinent Incontinent Incontinent # Voids 1 2 # Bowel Movements 1 2 - Exam -GENERAL: The patient is alert and oriented x3, not in any acute distress. Well developed, well nourished. Generally weak HEENT: Pupils are round and equally reacting to light. EOMI. No scleral icterus. No conjunctival pallor. Normocephalic, atraumatic. No pharyngeal erythema. No thyromegaly. CARDIOVASCULAR: S1 and S2 present. No murmurs, rubs, or gallops. PULMONARY: Chest is clear to auscultation, no wheezing or crackles. ABDOMEN: Soft, nontender, nondistended, normoactive bowel sounds. No palpable organomegaly. MUSCULOSKELETAL: No joint swelling or deformity. EXTREMITIES: No cyanosis, clubbing, or pedal edema. NEUROLOGICAL: Gross neurological examination did not reveal any focal deficits. SKIN: No rashes. no petechiae. - Labs CBC & Chem 7: 02/20/21 02:53 02/22/21 06:18 Labs: Abnormal Lab Results - Last 24 Hours (Table) 02/21/21 02/21/21 02/22/21 Range/Units 17:16 20:07 06:08 APTT (22.0-30.0) sec Sodium (137-145) mmol/L Carbon Dioxide (22-30) mmol/L BUN (7-17) mg/dL Creatinine (0.52-1.04) mg/dL Glucose (74-99) mg/dL POC Glucose (mg/dL) 202 H 165 H 195 H (75-99) mg/dL 02/22/21 02/22/21 02/22/21 Range/Units 06:18 06:18 12:06 APTT 36.5 H (22.0-30.0) sec Sodium 135 L (137-145) mmol/L Carbon Dioxide 17 L (22-30) mmol/L BUN 60 H (7-17) mg/dL Creatinine 6.18 H (0.52-1.04) mg/dL Glucose 145 H (74-99) mg/dL POC Glucose (mg/dL) 182 H (75-99) mg/dL Microbiology - Last 24 Hours (Table) 02/19/21 10:30 Blood Culture - Preliminary Blood No Growth after 72 hours 02/18/21 12:38 Blood Culture - Preliminary Blood No Growth after 72 hours 02/17/21 11:05 Anaerobic Culture - Final Pleural Fluid Assessment and Plan Assessment: Enterococcus bacteremia secondary to infected hemodialysis catheter which is removed Pulmonary conditions with mild hypoxic respiratory failure secondary to missed hemodialysis End-stage renal disease on hemodialysis Chronic atrial fibrillation on Eliquis Status post pacemaker Plan: This is a pleasant 75 years old female with infected catheter and positive blood culture with enterococcus. Continue with Unasyn and follow-up repeat blood culture Val possible permacath placement tomorrow blood culture remains negative to be followed by hemodialysis Continue with heparin drip and transitioned back to Eliquis after permacath placement Several consultants on the case Labs and medication were reviewed.. Continue same treatment. Continue with symptomatic treatment. Resume home medication. Monitor lytes and vitals. DVT and GI prophylaxis. Further recommendationsas per clinical course of the patient DVT prophylaxis: heparin GI Prophylaxis: Pepcid Prognosis is guarded
[2021-02-22] MEDS: ONDANSETRON 4 MG/2 ML VIAL IVP PRN (15:06)
[2021-02-22] MEDS ORDERED: SENNOSIDES 8.6 MG TAB PO PRN (15:16)
[2021-02-22] MEDS ORDERED: LIDOCAINE 1% INJ 10MG/ML (20 ML MDV) SQ ONE (16:38)
--- NOTE | 2021-02-22 16:54 | PN ---
PROGRESS NOTE Patient is seen for followup for end-stage renal disease. This morning she is complaining of abdominal pain. She denies any nausea. Oral intake is poor. She did have two bowel movements yesterday. So far, the blood cultures are negative from 02/18/2021. Patient will have her PermCath placed today. PHYSICAL EXAMINATION: Blood pressure was 119/68, heart rate 55 per minute, she is afebrile. Examination of the heart S1, S2. Examination of lungs, bilateral breath sounds are heard. Abdomen is soft, obese. There is tenderness noted in the lower abdomen. Examination of lower extremities shows chronic skin changes. Trace edema noted bilaterally. GEL COATER exam grossly intact. LAB: Show sodium 135, potassium 4.6, BUN 60, creatinine 6.18. ASSESSMENT: 1. End-stage renal disease, on hemodialysis. Currently dialysis is on hold as patient does not have an access. Plan is to place a PermCath today as blood cultures have been negative. 2. Enterococcus bacteremia, status post removal of IC PermCath, maintained on antibiotics. 3. Abdominal pain. We will monitor for now and check CT of the abdomen if abdominal pain persists. 4. Chronic kidney disease mineral bone disorder. 5. Morbid obesity. PLAN: Hemodialysis in a.m. Proceed with PermCath placement today. Consider imaging of the abdomen if abdominal pain persists. MMODL / IJN: [id number] /
[2021-02-22 17:29] LABS: Glucose,Whole Blood 166 mg/dL (75-99)
[2021-02-22] MEDS ORDERED: HYDROmorphone 0.5 MG/0.5 ML SYRINGE IVP STA (17:44)
--- NOTE | 2021-02-22 18:25 | PN ---
PROGRESS NOTE DATE OF SERVICE: 02/22/2021 REASON FOR FOLLOWUP: Enterococcus faecalis bacteremia secondary to PermCath infection. INTERVAL HISTORY: The patient is afebrile. The patient is breathing comfortably. No chest pain or cough. No abdominal pain or diarrhea. PHYSICAL EXAMINATION: Blood pressure 120/56, pulse of 50, temperature 98.1 she is 98% on room air. General description is an elderly female lying in bed in no distress. Respiratory system: Unlabored breathing, coarse breath sounds bilaterally. Heart S1, S2. Regular rate and rhythm. Abdomen: Soft, no tenderness. LABS: Blood cultures repeat on the and . Culture has been negative. DIAGNOSTIC IMPRESSION AND PLAN: Patient with Enterococcus bacteremia concerning for PermaCath infection, which has been discontinued. Blood has been negative. She did get a new abdominal catheter today. The patient is covered with Unasyn to continue and monitor clinical course. MMODL / IJN: [id number] /
[2021-02-22] MEDS ORDERED: HYDROmorphone 0.5 MG/0.5 ML SYRINGE IVP PRN (19:02)
[2021-02-22 20:12] LABS: Glucose,Whole Blood 169 mg/dL (75-99)
[2021-02-22] MEDS: APIXABAN 2.5 MG TABLET PO SCH (20:31)
[2021-02-22] MEDS: ACETAMINOPHEN TAB 325 MG TAB PO PRN (20:31)
[2021-02-22] MEDS: EZETIMIBE 10 MG TAB PO SCH (21:32)
--- NOTE | 2021-02-22 21:41 | OP ---
OPERATIVE REPORT PREOPERATIVE DIAGNOSIS: Acute on chronic renal failure. POSTOPERATIVE DIAGNOSIS: Same. PROCEDURE PERFORMED: 1. Attempted right IJ internal jugular vein, which was occluded and patient has a pacemaker on the right subclavian vein. Her left subclavian is occluded. 2. Placement of an ultrasound-guided 44 cm dialysis permanent, placed in right femoral approach. SEDATION TIME: Thirty minutes. PROCEDURE IN DETAIL: This patient was brought to the labelling machine operator. Her neck and right groin were prepped, draped applied in a sterile manner. Ultrasound-guided micropuncture introduced right jugular vein. Micropuncture guidewire was passed but because we could not pass it, the jugular vein was occluded, and also patient has a pacemaker through the right subclavian approach. We decided to go to the right femoral vein, which was already prepped. 1% lidocaine plain infiltrated. Ultrasound-guided micropuncture introduced. Right femoral vein micropuncture guidewire was passed and 4-Bulgarian dilator over the top of the guidewire. Then, we made an incision in the groin and lateral aspect of the thigh. Through the sheath we passed a regular guidewire under fluoroscopic control. Then tunnel was created. Through the tunnel we brought 44 cm dialysis catheter. After that, we passed a dilator and then it was a sheath on the top of the guidewire. Guidewire was removed and through the sheath we introduced the dialysis catheter. Tip of the catheter was in the inferior vena cava. Flushed with heparin, saline and hep- locked, secured with 3-0 nylon and his groin incision was closed with 4-0 Vicryl. Pressure dressing applied. Patient tolerated the procedure well, transferred to the recovery room in satisfactory condition. MMODL / IJN: [id number] /
[2021-02-23 06:09] LABS: Glucose,Whole Blood 150 mg/dL (75-99)
[2021-02-23] MEDS: INSULIN ASPART (NovoLOG) 100 UNIT/ML VIAL SQ SCH ×4 (06:17→21:15)
[2021-02-23] MEDS: SEVELAMER 800 MG TAB PO SCH ×4 (06:18→21:14)
[2021-02-23] MEDS: ALBUTEROL NEBULIZED 2.5 MG/3 ML INHALATION SCH ×4 (08:00→20:16)
[2021-02-23] MEDS: AMPICILLIN-SULBACTAM 3 GM in SODIUM CHLORIDE 0.9% 100 ML IVPB SCH (08:17)
[2021-02-23] MEDS: NYSTATIN 100,000UNIT/GM CREAM 30 GM TUBE TOPICAL SCH ×2 (08:19→21:15)
[2021-02-23] MEDS: SODIUM BICARBONATE TAB 650 MG TAB PO SCH ×3 (08:19→21:15)
[2021-02-23] MEDS: FAMOTIDINE 20 MG TAB PO SCH (08:19)
[2021-02-23] MEDS: APIXABAN 2.5 MG TABLET PO SCH ×2 (08:19→21:14)
[2021-02-23] MEDS: FOLIC ACID-VIT B COMPLEX-VIT C 1 CAP PO SCH (08:19)
[2021-02-23] MEDS: CYANOCOBALAMIN 500 MCG TAB PO SCH (08:19)
[2021-02-23] MEDS: ASCORBIC ACID 500 MG TAB PO SCH (08:19)
--- NOTE | 2021-02-23 09:15 | IR ---
EXAMINATION TYPE: IR cvc insert central tunneled DATE OF EXAM: 02/22/2021 COMPARISON: NONE HISTORY: Fluoroscopy time. Fluoroscopy was provided to the referring clinician.
[2021-02-23 11:54] LABS: Glucose,Whole Blood 120 mg/dL (75-99)
[2021-02-23] MEDS: IOPAMIDOL CONTRAST (ORAL USE) VIAL PO PRN ×2 (15:11→16:00)
--- NOTE | 2021-02-23 15:14 | P.PN ---
Subjective Progress Note Date: 02/23/21 Principal diagnosis: Bilateral pleural effusion, left greater than right, pericardial effusion, status post pericardiocentesis On 02/17/2021 patient seen in follow-up on selective care unit, patient is status post pericardiocentesis with placement of a pigtail drain, postoperative day #2, and bilateral pleural effusions, left greater than right, status post left thoracentesis by interventional radiology with removal of 560 mL of pleural fluid. Follow-up chest x-ray after the procedure showed improvement in aeration of the left lung. Patient is currently on 4 L of oxygen, and his pulse ox is 97-100%, hemodynamically stable, he is afebrile. Patient's blood culture was p ositive for Enterococcus faecalis patient is on Rocephin for antibiotic coverage, there was a concern for possibly infected permacath which was removed, and catheter tip cultures have been ordered. Patient was initially covered with vancomycin, ID service is following and current abiotic coverage is just with Rocephin. he is breathing comfortably, he is more awake and alert on today's exam, no chest pain, no abdominal pain, no nausea or vomiting. No diarrhea. On 02/18/2021 patient seen in follow-up on selective care unit. Patient is awake and alert, in no acute distress, she is on 3 L of oxygen, with a pulse ox of 97%. No worsening dyspnea at rest, she does have exertional dyspnea. No fever or chills. Patient is incontinent of urine, she does avoid, it urine output is difficult to estimate as the patient is incontinent. She remains on antibiotics in the form of ceftriaxone and vancomycin for enterococcus bacteremia, her follow-up blood cultures have shown no growth thus far, last set was sent on 02/16/2021, her permacath catheter was removed by vascular surgery and catheter tip has been sent for culture, reported on the cultures thus far, patient is status post left-sided thoracentesis, so far pleural fluid cultures remain negative. Patient is supposed to have a new hemodialysis catheter inserted today by vascular surgery. On 02/20/2021 patient seen in follow-up on selective care unit. She is currently working with physical therapy, she sitting up on the edge of the bed. She is breathing comfortably, denies any dyspnea, no cough, no chest discomfort. Lung sounds reveal diminished breath sounds with dullness at the left base, and left pleural effusion is suspected, we will obtain follow-up chest x-ray later on today, however in terms of oxygenation it has remained stable, she is currently still on 3 L a pulse ox of 100%. The labs have been reviewed but cell count is stable, at 12.1, hemoglobin is 9.4, INR is 1.2, sodium is 134, renal profile slightly worse, with BUN of 51, creatinine is 5.51. No Significant edema involving lower extremities. Remains on antibiotics in the form of ampicillin for enterococcus bacteremia, her right subclavian permacath has been removed, and catheter tip also shows quite is negative staph and group D enterococcus. Follow blood cultures have shown no growth at the 24-hour roney. Pleural fluid culture is still pending, preliminary Gram stain showed no organisms. Pericardial catheter has been removed a few days ago. Blood pressure has been stable On 02/21/2021 patient seen in follow-up on selective care unit, she is awake and alert, slightly irritable, but denies any breathing issues, no shortness of breath, only occasional cough, no phlegm production, no complaints of chest pain, she remains on the same 3 L of supplemental oxygen that she was on for last few days. Her pulse ox is 93-97%, she's been afebrile, hemodynamically she has been stable, yesterday's follow-up chest x-ray showed recurrence of a moderately sized left-sided pleural effusion. Patient had her right subclavian permacath removed, and the catheter tip was showing evidence of D enterococcus, follow-up blood cultures have been sent, and have shown no growth thus far, final cultures are still pending, no fever or chills overnight. Patient is incontinent of small amount of urine, no worsening dyspnea, no worsening edema in bilateral lower extremities. No nausea no vomiting no diarrhea. She remains on antibiotics in the form of Unasyn., On 02/22/2021 patient seen in follow-up on selective care unit, she seems to be in moderate to severe amount of distress, she is complaining of sharp abdominal pain, abdomen is soft, however in the upper midabdomen there is tenderness to palpation. And CT of the abdomen and pelvis has already been ordered by the primary care service and is pending at this time. Otherwise she denies any worsening dyspnea, remains on 4 L of oxygen pulse ox of 95%, lung sounds are diminished at the bases, her chest x-ray from a couple days ago showed increasing left-sided pleural effusion, however clinically patient has been maintaining her O2 saturations, and denying any chest discomfort or worsening dyspnea. Her follow-up blood culture from 02/18/2021 has shown no growth, and that she is supposed to have a new permacath dialysis catheter inserted. Her heparin infusion has been on hold, today's labs have been reviewed, BUN 60, creatinine 6.18. There is a mild lower extremity edema. And patient continues on Unasyn for group D enterococcus bacteremia related to permacath line infectio n. On 02/23/2021 patient seen in follow-up on selective care unit, she had a right femoral temporary dialysis catheter inserted yesterday and she had hemodialysis today with removal of 1 L of fluid, she is lethargic on today's exam, she has been getting IV Dilaudid for abdominal pain. Computed tomography scan has not been completed yet, diminished soft, and apparently when the patient is awake s he does complaining of abdominal discomfort. He is on 4 L oxygen pulse ox is 93%, lung sounds are diminished at the bases, with dullness over left lower and mid lung. She's had no fever. Her follow-up blood cultures starting on 02/18/2021 have been negative. Objective - Vital Signs Vital signs: Vital Signs Temp 98.2 F 02/23/21 11:57 Pulse 59 L 02/23/21 11:57 Resp 18 02/23/21 11:57 BP 112/59 02/23/21 13:18 Pulse Ox 93 L 02/23/21 11:57 Intake & Output 02/22/21 02/23/21 02/23/21 18:59 06:59 18:59 Intake Total 150 60 Balance 150 60 Weight 57 kg Intake: IV 0 0.9 KVO 0 Oral 150 60 Other: Voiding Method Incontinent Incontinent Incontinent # Voids 1 - Exam GENERAL EXAM: Lethargic, very pleasant, 75-year-old white male, on 4 L of oxygen and pulse ox of 97-100% comfortable in no apparent distress. HEAD: Normocephalic/atraumatic. EYES: Normal reaction of pupils, equal size. Conjunctiva pink, sclera white. NOSE: Clear with pink turbinates. THROAT: No erythema or exudates. NECK: No masses, no JVD, no thyroid enlargement, no adenopathy. CHEST: No chest wall deformity. Symmetrical expansion. LUNGS: Equal air entry with diminished breath sounds at the bases CVS: Regular rate and rhythm, normal S1 and S2, no gallops, no murmurs, no rubs ABDOMEN: Soft, nontender. No hepatosplenomegaly, normal bowel sounds, slightly tender in the epigastric area EXTREMITIES: No clubbing, no edema, no cyanosis, 2+ pulses and upper and lower extremities. MUSCULOSKELETAL: Muscle strength and tone normal. SPINE: No scoliosis or deformity SKIN: No rashes CENTRAL NERVOUS SYSTEM: Lethargic No focal deficits, tone is normal in all 4 extremities. - Labs CBC & Chem 7: 02/20/21 02:53 02/22/21 06:18 Labs: Abnormal Lab Results - Last 24 Hours (Table) 02/22/21 02/22/21 02/23/21 Range/Units 17:26 20:10 06:08 POC Glucose (mg/dL) 166 H 169 H 150 H (75-99) mg/dL 02/23/21 Range/Units 11:52 POC Glucose (mg/dL) 120 H (75-99) mg/dL Microbiology - Last 24 Hours (Table) 02/18/21 12:38 Blood Culture - Preliminary Blood No Growth after 120 hours 02/19/21 10:30 Blood Culture - Preliminary Blood No Growth after 96 hours 02/16/21 10:10 Blood Culture Gram Stain - Final Blood Blood Culture - Final Enterococcus faecalis Assessment and Plan Plan: Assessment: #1. Pericardial effusion, status post pericardiocentesis would removal of 300 mL of bloody fluid, postoperative day number 6, pericardial drain has since been removed #2. Bilateral pleural effusions, left greater than right, status post left thoracentesis by interventional radiology today on 02/17/2021 and removal of 560 cc of pleural fluid which was sent for analysis, pleural fluid cultures showed no growth #3. Enterococcus faecalis bacteremia, was on Rocephin and vancomycin, currently just on Rocephin, ID service is following. This was likely related to line infe ction, permacath was removed from the right subclavian and catheter tip was also positive for group D enterococcus and coagulase-negative staph #4. Status post removal of right permacath, cath tip was sent for culture #5. Acute on chronic hypoxic respiratory failure secondary to sepsis, pericard ial effusion, and bilateral pleural effusions #6. End-stage renal disease on hemodialysis #7. Chronic A. fib on Eliquis, Eliquis is currently on hold #8. Permanent pacemaker #9. COPD on home oxygen at 4 L #10. Diabetes mellitus type 2 #11. History of hypertension #12. History of hyperlipidemia #13. History of TIA in 2019 #14. Recent history of a fall Plan: Encourage incentive spirometry use Patient has been dialyzed Monitor for worsening dyspnea or hypoxia Appears to be increasingly lethargic on today's exam We will talk with primary service whether they want a CT of the abdomen and pelvis Continue to follow I performed a history & physical examination of the patient and discussed their management with my nurse practitioner, Mallorie Zavala. I reviewed the nurse practitioner's note and agree with the documented findings and plan of care. Lung sounds are positive for diminished breath sounds. The findings and the impression was discussed with the patient. I attest to the documentation by the nurse practitioner. Time with Patient: Less than 30
[2021-02-23 16:28] LABS: Glucose,Whole Blood 265 mg/dL (75-99)
--- NOTE | 2021-02-23 17:09 | CT ---
EXAMINATION TYPE: CT abdomen pelvis wo con DATE OF EXAM: 02/23/2021 COMPARISON: CT chest 02/14/2021. HISTORY: Abdominal pain. CT DLP: 1366.2 mGycm Automated exposure control for dose reduction was used. TECHNIQUE: Helical acquisition of images was performed from the lung bases through the pelvis. FINDINGS: LUNG BASES: Small right and moderate left pleural effusions with adjacent consolidations. LIVER/GB: No significant abnormality is appreciated. Cholecystectomy. PANCREAS: No significant abnormality is seen. SPLEEN: No significant abnormality is seen. ADRENALS: No significant abnormality is seen. KIDNEYS: No hydronephrosis or nephrolithiasis. Multiple bilateral renal cysts including 2 left and si ngle right partially calcified cysts. The cysts measure up to 3.5 cm on the left and 1.8 cm on the ri ght. FREE AIR: No free air is visualized RETROPERITONEAL ADENOPATHY: None visualized REPRODUCTIVE ORGANS: No significant abnormality is seen URINARY BLADDER: No significant abnormality is seen. PELVIC ADENOPATHY: None visualized. OSSEOUS STRUCTURES: No significant abnormality is seen. BOWEL: No bowel obstruction. Small pelvic free fluid. Moderate amount of colonic stool, most notable within the rectal vault. OTHER: Right femoral venous catheter seen. IMPRESSION: BILATERAL PLEURAL EFFUSIONS WITH ADJACENT CONSOLIDATIONS, INCREASED ON THE RIGHT COMPARED TO PRIOR ST UDY. SMALL PELVIC FREE FLUID, NONSPECIFIC. MODERATE COLONIC STOOL, MOST NOTABLE IN THE RECTAL VAULT. CORRELATE FOR IMPACTION. No bowel obstruction or free air. Simple and complex bilateral renal cysts.
[2021-02-23] MEDS: traMADol 50 MG TAB PO PRN (17:32)
--- NOTE | 2021-02-23 18:19 | PN ---
PROGRESS NOTE DATE OF SERVICE: 02/23/2021 REASON FOR FOLLOWUP: Enterococcus faecalis bacteremia secondary fungal infection. INTERVAL HISTORY: The patient is afebrile. The patient is breathing comfortably. Denies having any chest pain, shortness of breath or cough. No abdominal pain or diarrhea. PHYSICAL EXAMINATION: Blood pressure 109/54 with a pulse of 61, temperature 97.7, she is 92% on 6 L nasal cannula. General description is an elderly female lying in bed in no distress. Respiratory system: Unlabored breathing, decreased BS. No wheeze. Heart S1, S2. Regular rhythm. Abdomen: Soft, no tenderness. LABS: Blood culture repeat has been negative so far. DIAGNOSTIC DATA: The patient with Enterococcus faecalis bacteremia most likely ( ) has been discontinued secondary to ( ) pathogen. Repeat blood culture negative. Patient on Unasyn. However, will transition to vancomycin through the dialysis to prevent placement of a line. Questions were answered. MMODL / IJN: [id number] /
--- NOTE | 2021-02-23 18:20 | PN ---
PROGRESS NOTE The patient is seen for followup for end-stage renal disease. She is currently lying in bed. The patient is comfortable. She is arousable. A femoral dialysis catheter was placed and patient will be dialyzed today. PHYSICAL EXAMINATION: On examination this morning, blood pressure is 109/43, heart rate of 59 per minute. Patient is afebrile. Examination of the heart S1, S2. Examination of the lungs, bilateral breath sounds are heard. Abdomen is soft, nontender, morbidly obese. Examination lower extremities shows chronic skin changes. Edema 1+ bilaterally. LABS: Show of potassium 4.6 yesterday 02/22/2021. ASSESSMENT: 1. End-stage renal disease, on hemodialysis on a Saturday, , Saturday schedule as outpatient. 2. Enterococcus bacteremia status post removal of PermCath with new catheter placement yesterday. However, patient has poor circulation and he has currently and she currently has a femoral catheter. 3. Metabolic acidosis secondary to renal failure expect improvement with ongoing dialysis. PLAN: Hemodialysis today. We will plan for another treatment on 02/25/2021. MMODL / IJN: [id number] /
--- NOTE | 2021-02-23 19:02 | XR ---
EXAMINATION TYPE: XR chest 1V DATE OF EXAM: 02/23/2021 COMPARISON: 02/20/2021 HISTORY: Shortness of breath. TECHNIQUE: Single frontal view of the chest is obtained. FINDINGS: There is near complete opacification of the left lung with large pleural effusion, slightl y progressed compared to the prior study. Mild atelectatic changes of the right lung, otherwise clear . No pneumothorax seen. Stable partially obscured cardiomediastinal silhouette. The osseous structu res are unchanged. Right pacemaker and left-sided loop recorder seen. IMPRESSION: Near complete opacification of the left lung with large pleural effusion, slightly progr essed.
--- NOTE | 2021-02-23 19:19 | P.PN ---
Subjective This is a pleasant 75 years old female with multiple medical problems presents with infected catheter of permacath, with positive blood culture with enterococcus, currently is being covered with Unasyn. Repeat blood cultures pending and if it is going to be negative then another permacath hemodialysis catheter will be placed tomorrow, to be followed by him on dialysis as patient has pulmonary congestion and with no urine output although her oxygen saturation is only on 3 L/m of oxygen. 02/21/2021 Patient is clinically the same, she is a little confused which looks like this is her baseline. Patient oriented oriented. Permacath is healing and closed. Patient Is pending ID team clearance to place another dialysis catheter. She is hemodynamically stable. Oxygen saturation is acceptable. Patient remains on Unasyn currently 02/22/2021 Patient more sleepy today after she got those [place] yesterday which were discontinue with. Given her renal function and to return to avoid narcotics as it may cause his aspiration and other problems for the patient. Patient vitals are stable. Creatinine is elevated which is expected as she is pending hemodialysis Blood culture are still negative and patient most likely will be cleared by ID team today to go for another permacath placement, that's done her anticoagulation can be switched to Eliquis. Patient currently is covered with Unasyn 02/23/2021 Patient still lethargic and confused. But she looks stable. Oxygen saturation is 90s on 6 L oxygen via nasal cannula. She has some mild abdominal pain and tenderness, no rebound tenderness. Rest of vitals are stable. Left showing leukocytosis over 12 K. Repeat blood culture is negative. She is having right thigh tunneled dialysis catheter and she underwent hemodialysis today. Hemodialysis is on Saturday Chest x-ray showing near opacification of the left lung with left pleural effusion. Abdominal CT without contrast showing fecal impaction ((No free air. Bilateral pleural effusion with adjacent consolidations. Increase on the right compared to prior study. Moderate colonic stool, most notable in the rectal vault. Correlate for fecal impaction. No obstruction or free air. Simple and complex bilateral renal cysts)) Objective - Vital Signs Vital signs: Vital Signs Temp 97.7 F 02/23/21 15:15 Pulse 61 02/23/21 15:15 Resp 18 02/23/21 15:15 BP 109/40 02/23/21 15:15 Pulse Ox 92 L 02/23/21 15:15 Intake & Output 02/22/21 02/23/21 02/23/21 18:59 06:59 18:59 Intake Total 150 60 Balance 150 60 Weight 57 kg Intake: IV 0 0.9 KVO 0 Oral 150 60 Other: Voiding Method Incontinent Incontinent Incontinent # Voids 1 - Exam -GENERAL: The patient is alert and oriented x3, not in any acute distress. Well developed, well nourished. Generally weak HEENT: Pupils are round and equally reacting to light. EOMI. No scleral icterus. No conjunctival pallor. Normocephalic, atraumatic. No pharyngeal erythema. No thyromegaly. CARDIOVASCULAR: S1 and S2 present. No murmurs, rubs, or gallops. PULMONARY: Chest is clear to auscultation, no wheezing or crackles. ABDOMEN: Soft, nontender, nondistended, normoactive bowel sounds. No palpable organomegaly. MUSCULOSKELETAL: No joint swelling or deformity. EXTREMITIES: No cyanosis, clubbing, or pedal edema. NEUROLOGICAL: Gross neurological examination did not reveal any focal deficits. SKIN: No rashes. no petechiae. - Labs CBC & Chem 7: 02/20/21 02:53 02/22/21 06:18 Labs: Abnormal Lab Results - Last 24 Hours (Table) 02/22/21 02/23/21 02/23/21 Range/Units 20:10 06:08 11:52 POC Glucose (mg/dL) 169 H 150 H 120 H (75-99) mg/dL 02/23/21 Range/Units 16:26 POC Glucose (mg/dL) 265 H (75-99) mg/dL Microbiology - Last 24 Hours (Table) 02/18/21 12:38 Blood Culture - Preliminary Blood No Growth after 120 hours 02/19/21 10:30 Blood Culture - Preliminary Blood No Growth after 96 hours 02/16/21 10:10 Blood Culture Gram Stain - Final Blood Blood Culture - Final Enterococcus faecalis Assessment and Plan Assessment: Enterococcus bacteremia secondary to infected hemodialysis catheter which is removed Pulmonary conditions with mild hypoxic respiratory failure secondary to missed hemodialysis End-stage renal disease on hemodialysis Fecal impaction Chronic atrial fibrillation on Eliquis Status post pacemaker Plan: This is a pleasant 75 years old female with infected catheter and positive blood culture with enterococcus. Continue with Unasyn and follow-up repeat blood culture Status post right thigh permacath and patient undergoing by hemodialysis next on Sunday 02/25 Continue with o Eliquis after permacath placement. Dose 2.5 mg twice a day CT of the abdomen showing fecal impaction, no free air or bowel obstruction Several consultants on the case Labs and medication were reviewed.. Continue same treatment. Continue with symptomatic treatment. Resume home medication. Monitor lytes and vitals. DVT and GI prophylaxis. Further recommendations as per clinical course of the patient DVT prophylaxis: heparin GI Prophylaxis: Pepcid Prognosis is guarded
[2021-02-23 20:18] LABS: Glucose,Whole Blood 251 mg/dL (75-99)
[2021-02-23 20:29] LABS: Anisocytosis Slight; Basophils # (A) 0.1 k/uL (0-0.2); Basophils % (A) 0 %; Eosinophils # (A) 0.2 k/uL (0-0.7); Eosinophils % (A) 2 %; HGB 10.5 gm/dL (11.4-16.0); Hypochromasia Marked; Lymphocytes # (A) 0.6 k/uL (1.0-4.8); Lymphocytes % (A) 4 %; MCHC 31.8 g/dL (31.0-37.0); MCV 116.5 fL (80.0-100.0); Macrocytosis Marked; Mean Platelet Volume 7.9; Monocytes # (A) 1.2 k/uL (0-1.0); Monocytes % (A) 8 %; Neutrophils # (A) 12.4 k/uL (1.3-7.7); Neutrophils % (A) 84 %; Platelet Count 180 k/uL (150-450); RBC 2.84 m/uL (3.80-5.40); RDW 16.2 % (11.5-15.5); WBC 14.8 k/uL (3.8-10.6)
[2021-02-23] MEDS: EZETIMIBE 10 MG TAB PO SCH (21:14)
[2021-02-23] MEDS: ONDANSETRON 4 MG/2 ML VIAL IVP PRN (21:14)
[2021-02-24 06:25] LABS: Glucose,Whole Blood 155 mg/dL (75-99)
[2021-02-24] MEDS: INSULIN ASPART (NovoLOG) 100 UNIT/ML VIAL SQ SCH ×4 (06:40→21:27)
[2021-02-24] MEDS: SEVELAMER 800 MG TAB PO SCH ×4 (06:41→21:27)
[2021-02-24] MEDS: ALBUTEROL NEBULIZED 2.5 MG/3 ML INHALATION SCH ×4 (07:23→19:58)
--- NOTE | 2021-02-24 07:36 | XR ---
EXAMINATION TYPE: XR abdomen 1V DATE OF EXAM: 02/24/2021 COMPARISON: NONE HISTORY: Pain, possible fecal impaction TECHNIQUE: Single supine KUB image of the abdomen is obtained FINDINGS: There is retained contrast within the colon presumably from recent CT. Fecal debris is seen within th e rectosigmoid region over the appearance is compatible with impaction. No convincing evidence for pneumoperitoneum. No unusual calcifications. The lung bases are clear. The osseous structures are intact. Right femoral vein catheter. IMPRESSION: 1. Overall nonobstructive bowel gas pattern. No definite evidence for impaction.
[2021-02-24] MEDS: FAMOTIDINE 20 MG TAB PO SCH (08:44)
[2021-02-24] MEDS: FOLIC ACID-VIT B COMPLEX-VIT C 1 CAP PO SCH (08:44)
[2021-02-24] MEDS: AMPICILLIN-SULBACTAM 3 GM in SODIUM CHLORIDE 0.9% 100 ML IVPB SCH (08:44)
[2021-02-24] MEDS: APIXABAN 2.5 MG TABLET PO SCH (08:44)
[2021-02-24] MEDS: SODIUM BICARBONATE TAB 650 MG TAB PO SCH ×3 (08:44→21:27)
[2021-02-24] MEDS: ASCORBIC ACID 500 MG TAB PO SCH (08:45)
[2021-02-24] MEDS: CYANOCOBALAMIN 500 MCG TAB PO SCH (08:45)
[2021-02-24] MEDS: MIDODRINE 5 MG TAB PO SCH (08:45)
[2021-02-24] MEDS: NYSTATIN 100,000UNIT/GM CREAM 30 GM TUBE TOPICAL SCH ×2 (10:05→21:28)
[2021-02-24 11:40] LABS: Glucose,Whole Blood 250 mg/dL (75-99)
--- NOTE | 2021-02-24 13:56 | P.PN ---
Subjective Progress Note Date: 02/24/21 Principal diagnosis: Bilateral pleural effusion, left greater than right, pericardial effusion, status post pericardiocentesis On 02/17/2021 patient seen in follow-up on [facility] care unit, patient is status post pericardiocentesis with placement of a pigtail drain, postoperative day #2, and bilateral pleural effusions, left greater than right, status post left thoracentesis by interventional radiology with removal of 560 mL of pleural fluid. Follow-up chest x-ray after the procedure showed improvement in aeration of the left lung. Patient is currently on 4 L of oxygen, and his pulse ox is 97-100%, hemodynamically stable, he is afebrile. Patient's blood culture was p ositive for Enterococcus faecalis patient is on Rocephin for antibiotic coverage, there was a concern for possibly infected permacath which was removed, and catheter tip cultures have been ordered. Patient was initially covered with vancomycin, ID service is following and current abiotic coverage is just with Rocephin. he is breathing comfortably, he is more awake and alert on today's exam, no chest pain, no abdominal pain, no nausea or vomiting. No diarrhea. On 02/18/2021 patient seen in follow-up on selective care unit. Patient is awake and alert, in no acute distress, she is on 3 L of oxygen, with a pulse ox of 97%. No worsening dyspnea at rest, she does have exertional dyspnea. No fever or chills. Patient is incontinent of urine, she does avoid, it urine output is difficult to estimate as the patient is incontinent. She remains on antibiotics in the form of ceftriaxone and vancomycin for enterococcus bacteremia, her follow-up blood cultures have shown no growth thus far, last set was sent on 02/16/2021, her permacath catheter was removed by vascular surgery and catheter tip has been sent for culture, reported on the cultures thus far, patient is status post left-sided thoracentesis, so far pleural fluid cultures remain negative. Patient is supposed to have a new hemodialysis catheter inserted today by vascular surgery. On 02/20/2021 patient seen in follow-up on selective care unit. She is currently working with physical therapy, she sitting up on the edge of the bed. She is breathing comfortably, denies any dyspnea, no cough, no chest discomfort. Lung sounds reveal diminished breath sounds with dullness at the left base, and left pleural effusion is suspected, we will obtain follow-up chest x-ray later on today, however in terms of oxygenation it has remained stable, she is currently still on 3 L a pulse ox of 100%. The labs have been reviewed but cell count is stable, at 12.1, hemoglobin is 9.4, INR is 1.2, sodium is 134, renal profile slightly worse, with BUN of 51, creatinine is 5.51. No Significant edema involving lower extremities. Remains on antibiotics in the form of ampicillin for enterococcus bacteremia, her right subclavian permacath has been removed, and catheter tip also shows quite is negative staph and group D enterococcus. Follow blood cultures have shown no growth at the 24-hour roney. Pleural fluid culture is still pending, preliminary Gram stain showed no organisms. Pericardial catheter has been removed a few days ago. Blood pressure has been stable On 02/21/2021 patient seen in follow-up on selective care unit, she is awake and alert, slightly irritable, but denies any breathing issues, no shortness of breath, only occasional cough, no phlegm production, no complaints of chest pain, she remains on the same 3 L of supplemental oxygen that she was on for last few days. Her pulse ox is 93-97%, she's been afebrile, hemodynamically she has been stable, yesterday's follow-up chest x-ray showed recurrence of a moderately sized left-sided pleural effusion. Patient had her right subclavian permacath removed, and the catheter tip was showing evidence of D enterococcus, follow-up blood cultures have been sent, and have shown no growth thus far, final cultures are still pending, no fever or chills overnight. Patient is incontinent of small amount of urine, no worsening dyspnea, no worsening edema in bilateral lower extremities. No nausea no vomiting no diarrhea. She remains on antibiotics in the form of Unasyn., On 02/22/2021 patient seen in follow-up on selective care unit, she seems to be in moderate to severe amount of distress, she is complaining of sharp abdominal pain, abdomen is soft, however in the upper midabdomen there is tenderness to palpation. And CT of the abdomen and pelvis has already been ordered by the primary care service and is pending at this time. Otherwise she denies any worsening dyspnea, remains on 4 L of oxygen pulse ox of 95%, lung sounds are diminished at the bases, her chest x-ray from a couple days ago showed increasing left-sided pleural effusion, however clinically patient has been maintaining her O2 saturations, and denying any chest discomfort or worsening dyspnea. Her follow-up blood culture from 02/18/2021 has shown no growth, and that she is supposed to have a new permacath dialysis catheter inserted. Her heparin infusion has been on hold, today's labs have been reviewed, BUN 60, creatinine 6.18. There is a mild lower extremity edema. And patient continues on Unasyn for group D enterococcus bacteremia related to permacath line infectio n. On 02/23/2021 patient seen in follow-up on [facility] [place] care unit, she had a right femoral temporary dialysis catheter inserted yesterday and she had hemodialysis today with removal of 1 L of fluid, she is lethargic on today's exam, she has been getting IV Dilaudid for abdominal pain. Computed tomography scan has not been completed yet, diminished soft, and apparently when the patient is awake s he does complaining of abdominal discomfort. He is on 4 L oxygen pulse ox is 93%, lung sounds are diminished at the bases, with dullness over left lower and mid lung. She's had no fever. Her follow-up blood cultures starting on 02/18/2021 have been negative. On 02/24/2021 patient seen in follow-up. Patient has been dialyzed again yesterday, and 1 L of fluid was removed. Follow-up chest x-ray yesterday showed worsening left sided pleural effusion, with near complete opacification of the left lung. Today's exam patient is more lethargic and per nursing reports she is more confused. She is resistant to care, she does not want to sit up in bed, she does not want to cooperate with care. [employer] who is her boyfriend. Lung sounds reveal very diminished breath sounds on the left, with dullness to percussion. She is currently on 4 L of oxygen the pulse ox of 96%, she is afebrile, denies any chest pain, she has a temporary hemodialysis catheter in place. Her follow-up blood cultures have been negative, she continues on antibiotics in the form of Unasyn for the bacteremia, and line infection. Had no fever or chills. Objective - Vital Signs Vital signs: Vital Signs Temp 97.6 F 02/24/21 11:40 Pulse 60 02/24/21 11:40 Resp 18 02/24/21 11:40 BP 124/56 02/24/21 11:40 Pulse Ox 96 02/24/21 11:40 Intake & Output 02/23/21 02/24/21 02/24/21 18:59 06:59 18:59 Intake Total 60 20 360 Balance 60 20 360 Weight 55.5 kg Intake: IV 20 Invasive Line 3 10 Invasive Line 4 10 Oral 60 360 Other: Voiding Method Incontinent Incontinent Incontinent # Voids 1 1 # Bowel Movements 1 - Exam GENERAL EXAM: Lethargic, 75-year-old white male, on 4 L of oxygen and pulse ox of 97-100% on today's exam HEAD: Normocephalic/atraumatic. EYES: Normal reaction of pupils, equal size. Conjunctiva pink, sclera white. NOSE: Clear with pink turbinates. THROAT: No erythema or exudates. NECK: No masses, no JVD, no thyroid enlargement, no adenopathy. CHEST: No chest wall deformity. Symmetrical expansion. LUNGS: Equal air entry with diminished breath sounds over the left lung CVS: Regular rate and rhythm, normal S1 and S2, no gallops, no murmurs, no rubs ABDOMEN: Soft, nontender. No hepatosplenomegaly, normal bowel sounds, slightly tender in the epigastric area EXTREMITIES: No clubbing, no edema, no cyanosis, 2+ pulses and upper and lower extremities. MUSCULOSKELETAL: Muscle strength and tone normal. SPINE: No scoliosis or deformity SKIN: No rashes CENTRAL NERVOUS SYSTEM: Lethargic No focal deficits, tone is normal in all 4 extremities. - Labs CBC & Chem 7: 02/23/21 20:13 02/22/21 06:18 Labs: Abnormal Lab Results - Last 24 Hours (Table) 02/23/21 02/23/21 02/23/21 Range/Units 16:26 19:57 20:13 WBC 14.8 H (3.8-10.6) k/uL RBC 2.84 L (3.80-5.40) m/uL Hgb 10.5 L (11.4-16.0) gm/dL Hct 33.0 L (34.0-46.0) % MCV 116.5 H (80.0-100.0) fL MCH 37.0 H (25.0-35.0) pg RDW 16.2 H (11.5-15.5) % Neutrophils # 12.4 H (1.3-7.7) k/uL Lymphocytes # 0.6 L (1.0-4.8) k/uL Monocytes # 1.2 H (0-1.0) k/uL Macrocytosis Marked A POC Glucose (mg/dL) 265 H 251 H (75-99) mg/dL 02/24/21 02/24/21 Range/Units 06:19 11:38 WBC (3.8-10.6) k/uL RBC (3.80-5.40) m/uL Hgb (11.4-16.0) gm/dL Hct (34.0-46.0) % MCV (80.0-100.0) fL MCH (25.0-35.0) pg RDW (11.5-15.5) % Neutrophils # (1.3-7.7) k/uL Lymphocytes # (1.0-4.8) k/uL Monocytes # (0-1.0) k/uL Macrocytosis POC Glucose (mg/dL) 155 H 250 H (75-99) mg/dL Microbiology - Last 24 Hours (Table) 02/19/21 10:30 Blood Culture - Preliminary Blood No Growth after 120 hours 02/18/21 12:38 Blood Culture - Preliminary Blood No Growth after 120 hours 02/16/21 10:10 Blood Culture Gram Stain - Final Blood Blood Culture - Final Enterococcus faecalis Assessment and Plan Plan: Assessment: #1. Pericardial effusion, status post pericardiocentesis would removal of 300 mL of bloody fluid, postoperative day number 6, pericardial drain has since been removed #2. Bilateral pleural effusions, left greater than right, status post left thoracentesis by interventional radiology today on 02/17/2021 and removal of 560 cc of pleural fluid which was sent for analysis, pleural fluid cultures showed no growth #3. Enterococcus faecalis bacteremia, was on Rocephin and vancomycin, currently just on Rocephin, ID service is following. This was likely related to line infection, permacath was removed from the right subclavian and catheter tip was also positive for group D enterococcus and coagulase-negative staph #4. Status post removal of right permacath, cath tip was sent for culture #5. Acute on chronic hypoxic respiratory failure secondary to sepsis, pericardial effusion, and bilateral pleural effusions #6. End-stage renal disease on hemodialysis #7. Chronic A. fib on Eliquis, Eliquis is currently on hold #8. Permanent pacemaker #9. COPD on home oxygen at 4 L #10. Diabetes mellitus type 2 #11. History of hypertension #12. History of hyperlipidemia #13. History of TIA in 2019 #14. Recent history of a fall Plan: Obtain ultrasound of the chest Chest x-ray showed near complete opacification of the left lung and worsening large left pleural effusion Obtain consent for the left-sided thoracentesis Hold Eliquis tonight and tomorrow morning I performed a history & physical examination of the patient and discussed their management with my nurse practitioner, Mallorie Zavala. I reviewed the nurse practitioner's note and agree with the documented findings and plan of care. Lung sounds are positive for diminished breath sounds. The findings and the impression was discussed with the patient. I attest to the documentation by the nurse practitioner. Time with Patient: Less than 30
--- NOTE | 2021-02-24 14:18 | US ---
EXAMINATION TYPE: US chest DATE OF EXAM: 02/24/2021 COMPARISON: NONE CLINICAL HISTORY: large left sided pleural effusion. TECHNIQUE: Targeted ultrasound of the posterior lower EXAM MEASUREMENTS: Left Pleural Effusion pocket size: 8.7 cm Left skin surface to fluid distance: 2.4 cm Lung seen at 4.3 cm. exam performed with patient laying on side. Left side marked for possible thoracentesis outside the dept. Pulmonologists are able to review the images in the patient?s EMR. IMPRESSIONS: Left pleural effusion
[2021-02-24] MEDS ORDERED: FLUCONAZOLE 100 MG TAB PO ONE (16:06)
[2021-02-24 16:40] LABS: Glucose,Whole Blood 178 mg/dL (75-99)
--- NOTE | 2021-02-24 16:52 | PN ---
PROGRESS NOTE DATE OF SERVICE: 02/24/2021 REASON FOR FOLLOWUP: Enterococcus faecalis bacteremia secondary to abdominal infection. INTERVAL HISTORY: Patient is afebrile. The patient is more awake, alert. She is breathing comfortably. Denies having any chest pain or cough. No abdominal pain. No diarrhea. PHYSICAL EXAMINATION: Blood pressure 124/56, pulse of 60, temperature is 97.6. She is 96% on 4 L nasal cannula. General condition is an elderly female lying in bed in no distress. Respiratory system: Unlabored breathing, decreased breath sounds in the base, with no wheeze. Heart S1, S2. Regular rate and rhythm. Abdomen soft, no tenderness. LABS: Hemoglobin is 10.5, white count 8.8. Blood culture repeat has been negative so far. DIAGNOSTIC IMPRESSION AND PLAN: Patient with Enterococcus faecalis bacteremia concerning for the PermCath, which has been discontinued. Repeat blood culture negative. Patient is on ( ) with transition to vancomycin on discharge ( ) placement of a PICC line. White count slightly trending up, will need to monitor closely and continue supportive care. MMODL / IJN: [id number] /
--- NOTE | 2021-02-24 20:10 | PN ---
PROGRESS NOTE Patient is seen for followup for end-stage renal disease. She was admitted to the hospital with fever and bacteremia with Enterococcus faecalis. Patient is status post removal of IJ PermCath and placement of femoral PermCath as she has had poor access for dialysis previously. PHYSICAL EXAMINATION: On examination today, patient is sleeping she is arousable, not in any acute distress. Blood pressure this morning was 106/49, heart rate of 62 per minute, patient is afebrile. Examination of the heart S1, S2. Examination of the lungs, bilateral breath sounds are heard. Abdomen is soft, morbidly obese. Examination lower extremities shows chronic skin changes, edema 1+ bilaterally. LAB: Show hemoglobin 10.5, white cell count 14.8. ASSESSMENT: 1. End-stage renal disease, on hemodialysis on a Saturday, , Saturday schedule. The patient will be dialyzed tomorrow. 2. Enterococcus faecalis bacteremia status post removal of IJ PermCath and placement of right femoral PermCath. The patient has had trouble with access placement previously. 3. Metabolic acidosis secondary to renal failure, expect improvement with ongoing renal replacement therapy. PLAN: Hemodialysis in a.m. Encourage increased oral intake. Continue antibiotics as per ID. MMODL / IJN: [id number] /
[2021-02-24 20:23] LABS: Glucose,Whole Blood 204 mg/dL (75-99)
--- NOTE | 2021-02-24 21:09 | P.PN ---
Subjective This is a pleasant 75 years old female with multiple medical problems presents with infected catheter of permacath, with positive blood culture with enterococcus, currently is being covered with Unasyn. Repeat blood cultures pending and if it is going to be negative then another permacath hemodialysis catheter will be placed tomorrow, to be followed by him on dialysis as patient has pulmonary congestion and with no urine output although her oxygen saturation is only on 3 L/m of oxygen. 02/21/2021 Patient is clinically the same, she is a little confused which looks like this is her baseline. Patient oriented oriented. Permacath is healing and closed. Patient Is pending ID team clearance to place another dialysis catheter. She is hemodynamically stable. Oxygen saturation is acceptable. Patient remains on Unasyn currently 02/22/2021 Patient more sleepy today after she got those Aragon yesterday which were discontinue with. Given her renal function and to return to avoid narcotics as it may cause his aspiration and other problems for the patient. Patient vitals are stable. Creatinine is elevated which is expected as she is pending hemodialysis Blood culture are still negative and patient most likely will be cleared by ID team today to go for another permacath placement, that's done her anticoagulation can be switched to Eliquis. Patient currently is covered with Unasyn 02/23/2021 Patient still lethargic and confused. But she looks stable. Oxygen saturation is 90s on 6 L oxygen via nasal cannula. She has some mild abdominal pain and tenderness, no rebound tenderness. Rest of vitals are stable. Left showing leukocytosis over 12 K. Repeat blood culture is negative. She is having right thigh tunneled dialysis catheter and she underwent hemodialysis today. Hemodialysis is on Saturday Chest x-ray showing near opacification of the left lung with left pleural effusion. Abdominal CT without contrast showing fecal impaction ((No free air. Bilateral pleural effusion with adjacent consolidations. Increase on the right compared to prior study. Moderate colonic stool, most notable in the rectal vault. Correlate for fecal impaction. No obstruction or free air. Simple and complex bilateral renal cysts)) 02/24/2021 Patient is confused and more lethargic today but arousable. She denies any abdominal pain today. No abdominal tenderness and abdomen is soft. Hemodynamically stable. Leukocytosis went up to 14 K. Because of these fluconazole was added. Lungs showing complete ossification, chest ultrasound showing 8.7 cm left pleural effusion and patient is planned for left paracentesis. Hold Eliquis until then. Objective - Vital Signs Vital signs: Vital Signs Temp 97.6 F 02/24/21 11:40 Pulse 60 02/24/21 11:40 Resp 18 02/24/21 11:40 BP 124/56 02/24/21 11:40 Pulse Ox 96 02/24/21 11:40 Intake & Output 02/23/21 02/24/21 02/24/21 18:59 06:59 18:59 Intake Total 60 20 360 Balance 60 20 360 Weight 55.5 kg 55.5 kg Intake: IV 20 Invasive Line 3 10 Invasive Line 4 10 Oral 60 360 Other: Voiding Method Incontinent Incontinent Incontinent # Voids 1 1 # Bowel Movements 1 - Exam -GENERAL: The patient is alert and oriented x3, not in any acute distress. Well developed, well nourished. Generally weak HEENT: Pupils are round and equally reacting to light. EOMI. No scleral icterus. No conjunctival pallor. Normocephalic, atraumatic. No pharyngeal erythema. No thyromegaly. CARDIOVASCULAR: S1 and S2 present. No murmurs, rubs, or gallops. PULMONARY: Chest is clear to auscultation, no wheezing or crackles. ABDOMEN: Soft, nontender, nondistended, normoactive bowel sounds. No palpable organomegaly. MUSCULOSKELETAL: No joint swelling or deformity. EXTREMITIES: No cyanosis, clubbing, or pedal edema. NEUROLOGICAL: Gross neurological examination did not reveal any focal deficits. SKIN: No rashes. no petechiae. - Labs CBC & Chem 7: 02/23/21 20:13 02/22/21 06:18 Labs: Abnormal Lab Results - Last 24 Hours (Table) 02/23/21 02/23/21 02/23/21 Range/Units 16:26 19:57 20:13 WBC 14.8 H (3.8-10.6) k/uL RBC 2.84 L (3.80-5.40) m/uL Hgb 10.5 L (11.4-16.0) gm/dL Hct 33.0 L (34.0-46.0) % MCV 116.5 H (80.0-100.0) fL MCH 37.0 H (25.0-35.0) pg RDW 16.2 H (11.5-15.5) % Neutrophils # 12.4 H (1.3-7.7) k/uL Lymphocytes # 0.6 L (1.0-4.8) k/uL Monocytes # 1.2 H (0-1.0) k/uL Macrocytosis Marked A POC Glucose (mg/dL) 265 H 251 H (75-99) mg/dL 02/24/21 02/24/21 Range/Units 06:19 11:38 WBC (3.8-10.6) k/uL RBC (3.80-5.40) m/uL Hgb (11.4-16.0) gm/dL Hct (34.0-46.0) % MCV (80.0-100.0) fL MCH (25.0-35.0) pg RDW (11.5-15.5) % Neutrophils # (1.3-7.7) k/uL Lymphocytes # (1.0-4.8) k/uL Monocytes # (0-1.0) k/uL Macrocytosis POC Glucose (mg/dL) 155 H 250 H (75-99) mg/dL Microbiology - Last 24 Hours (Table) 02/18/21 12:38 Blood Culture - Final Blood No Growth after 144 hours 02/19/21 10:30 Blood Culture - Preliminary Blood No Growth after 120 hours 02/16/21 10:10 Blood Culture Gram Stain - Final Blood Blood Culture - Final Enterococcus faecalis Assessment and Plan Assessment: Enterococcus bacteremia secondary to infected hemodialysis catheter which is removed Pulmonary conditions with mild hypoxic respiratory failure secondary to missed hemodialysis Left pleural effusion with complete opacification. Need thoracocentesis Abdominal pain secondary to fecal impaction creatinine improved with bowel movements End-stage renal disease on hemodialysis Fecal impaction Chronic atrial fibrillation on Eliquis Status post pacemaker Plan: This is a pleasant 75 years old female with infected catheter and positive blood culture with enterococcus. Continue with Unasyn and fluconazole and follow-up repeat blood culture Status post right thigh permacath and patient undergoing by hemodialysis next on Sunday 02/25 Continue Eliquis 2.5 mg twice a day, hold and resume after thoracocentesis CT of the abdomen showing fecal impaction, no free air or bowel obstruction abdominal pain secondary to fecal impaction, improved with bowel movements Several consultants on the case, pulmonary, nephrology and infectious disease team. Kettle Operator Head signed off Labs and medication were reviewed.. Continue same treatment. Continue with symptomatic treatment. Resume home medication. Monitor lytes and vitals. DVT and GI prophylaxis. Further recommendations as per clinical course of the patient DVT prophylaxis: heparin GI Prophylaxis: Pepcid Prognosis is guarded
[2021-02-24] MEDS: EZETIMIBE 10 MG TAB PO SCH (21:27)
[2021-02-25 06:20] LABS: Glucose,Whole Blood 175 mg/dL (75-99)
[2021-02-25] MEDS: INSULIN ASPART (NovoLOG) 100 UNIT/ML VIAL SQ SCH ×4 (06:29→21:31)
[2021-02-25] MEDS: SEVELAMER 800 MG TAB PO SCH ×4 (06:30→21:31)
[2021-02-25] MEDS: ALBUTEROL NEBULIZED 2.5 MG/3 ML INHALATION SCH ×4 (07:34→19:47)
[2021-02-25] MEDS: AMPICILLIN-SULBACTAM 3 GM in SODIUM CHLORIDE 0.9% 100 ML IVPB SCH (08:27)
[2021-02-25] MEDS: CYANOCOBALAMIN 500 MCG TAB PO SCH (08:35)
[2021-02-25] MEDS: ASCORBIC ACID 500 MG TAB PO SCH (08:35)
[2021-02-25] MEDS: MIDODRINE 5 MG TAB PO SCH (08:36)
[2021-02-25] MEDS: NYSTATIN 100,000UNIT/GM CREAM 30 GM TUBE TOPICAL SCH (08:36)
[2021-02-25] MEDS: FLUCONAZOLE 100 MG TAB PO SCH (08:36)
[2021-02-25] MEDS: FOLIC ACID-VIT B COMPLEX-VIT C 1 CAP PO SCH (08:36)
[2021-02-25] MEDS: FAMOTIDINE 20 MG TAB PO SCH (08:36)
[2021-02-25] MEDS: SODIUM BICARBONATE TAB 650 MG TAB PO SCH ×3 (08:36→21:31)
--- NOTE | 2021-02-25 11:44 | P.PN ---
Subjective Progress Note Date: 02/25/21 On 02/17/2021 patient seen in follow-up on selective care unit, patient is status post pericardiocentesis with placement of a pigtail drain, postoperative day #2, and bilateral pleural effusions, left greater than right, status post left thoracentesis by interventional radiology with removal of 560 mL of pleural fluid. Follow-up chest x-ray after the procedure showed improvement in aeration of the left lung. Patient is currently on 4 L of oxygen, and his pulse ox is 97-100%, hemodynamically stable, he is afebrile. Patient's blood culture was positive for Enterococcus faecalis patient is on Rocephin for antibiotic coverage, there was a concern for possibly infected permacath which was removed, and catheter tip cultures have been ordered. Patient was initially covered with vancomycin, ID service is following and current abiotic coverage is just with Rocephin. he is breathing comfortably, he is more awake and alert on today's exam, no chest pain, no abdominal pain, no nausea or vomiting. No diarrhea. On 02/18/2021 patient seen in follow-up on selective care unit. Patient is awake and alert, in no acute distress, she is on 3 L of oxygen, with a pulse ox of 97%. No worsening dyspnea at rest, she does have exertional dyspnea. No fever or chills. Patient is incontinent of urine, she does avoid, it urine output is difficult to estimate as the patient is incontinent. She remains on antibiotics in the form of ceftriaxone and vancomycin for enterococcus bacteremia, her follow-up blood cultures have shown no growth thus far, last set was sent on 02/16/2021, her permacath catheter was removed by vascular surgery and catheter tip has been sent for culture, reported on the cultures thus far, patient is status post left-sided thoracentesis, so far pleural fluid cultures remain negative. Patient is supposed to have a new hemodialysis catheter inserted today by vascular surgery. On 02/20/2021 patient seen in follow-up on selective care unit. She is currently working with physical therapy, she sitting up on the edge of the bed. She is breathing comfortably, denies any dyspnea, no cough, no chest discomfort. Lung sounds reveal diminished breath sounds with dullness at the left base, and left pleural effusion is suspected, we will obtain follow-up chest x-ray later o n today, however in terms of oxygenation it has remained stable, she is currently still on 3 L a pulse ox of 100%. The labs have been reviewed but cell count is stable, at 12.1, hemoglobin is 9.4, INR is 1.2, sodium is 134, renal profile slightly worse, with BUN of 51, creatinine is 5.51. No Significant edema involving lower extremities. Remains on antibiotics in the form of ampicillin for enterococcus bacteremia, her right subclavian permacath has been removed, and catheter tip also shows quite is negative staph and group D enterococcus. Follow blood cultures have shown no growth at the 24-hour roney. Pleural fluid culture is still pending, preliminary Gram stain showed no organisms. Pe ricardial catheter has been removed a few days ago. Blood pressure has been stable On 02/21/2021 patient seen in follow-up on selective care unit, she is awake and alert, slightly irritable, but denies any breathing issues, no shortness of breath, only occasional cough, no phlegm production, no complaints of chest pain, she remains on the same 3 L of supplemental oxygen that she was on for last few days. Her pulse ox is 93-97%, she's been afebrile, hemodynamically she has been stable, yesterday's follow-up chest x-ray showed recurrence of a moderately sized left-sided pleural effusion. Patient had her right subclavian permacath removed, and the catheter tip was showing evidence of D enterococcus, follow-up blood cultures have been sent, and have shown no growth thus far, final cultures are still pending, no fever or chills overnight. Patient is incontinent of small amount of urine, no worsening dyspnea, no worsening edema in bilateral lower extremities. No nausea no vomiting no diarrhea. She remains on antibiotics in the form of Unasyn., On 02/22/2021 patient seen in follow-up on selective care unit, she seems to be in moderate to severe amount of distress, she is complaining of sharp abdominal pain, abdomen is soft, however in the upper midabdomen there is tenderness to palpation. And CT of the abdomen and pelvis has already been ordered by the primary care service and is pending at this time. Otherwise she denies any worsening dyspnea, remains on 4 L of oxygen pulse ox of 95%, lung sounds are diminished at the bases, her chest x-ray from a couple days ago showed increasing left-sided pleural effusion, however clinically patient has been maintaining her O2 saturations, and denying any chest discomfort or worsening dyspnea. Her follow-up blood culture from 02/18/2021 has shown no growth, and that she is supposed to have a new permacath dialysis catheter inserted. Her heparin infusion has been on hold, today's labs have been reviewed, BUN 60, creatinine 6.18. There is a mild lower extremity edema. And patient continues on Unasyn for group D enterococcus bacteremia related to permacath line infection. On 02/23/2021 patient seen in follow-up on [facility] care unit, she had a right femoral temporary dialysis catheter inserted yesterday and she had hemodialysis today with removal of 1 L of fluid, she is lethargic on today's exam, she has been getting IV Dilaudid for abdominal pain. Computed tomography scan has not been completed yet, diminished soft, and apparently when the patient is awake she does complaining of abdominal discomfort. He is on 4 L oxygen pulse ox is 93%, lung sounds are diminished at the bases, with dullness over left lower and mid lung. She's had no fever. Her follow-up blood cultures starting on 02/18/2021 have been negative. On 02/24/2021 patient seen in follow-up. Patient has been dialyzed again yesterday, and 1 L of fluid was removed. Follow-up chest x-ray yesterday showed worsening left sided pleural effusion, with near complete opacification of the left lung. Today's exam patient is more lethargic and per nursing reports she is more confused. She is resistant to care, she does not want to sit up in bed, she does not want to cooperate with care. DURABLE POWER OF BUILDING [employer] who is her boyfriend. Lung sounds reveal very diminished breath sounds on the left, with dullness to percussion. She is currently on 4 L of oxygen the pulse ox of 96%, she is afebrile, denies any chest pain, she has a temporary hemodialysis catheter in place. Her follow-up blood cultures have been negative, she continues on antibiotics in the form of Unasyn for the bacteremia, and line infection. Had no fever or chills. 2020, eyes discussed the case with the POA and the patient has been completed fixation of the left lung and the patient will need another thoracentesis. The patient is under the care of nephrology regarding her chronic kidney disease and she is requiring hemodialysis episodically. She is currently on 2 L of oxygen by nasal cannula. She is off anticoagulation since yesterday. Mild degree of respiratory distress at rest. Not using excessive muscle breathing. She is on IV antibiotics and the patient is on the Unasyn and Diflucan. She has a temper dialysis catheter in place in her right groin. The catheter tip that was removed on 02/16/2021 was positive for group D enterococcus in the blood culture was also positive. She remains on IV Unasyn for now. Objective - Vital Signs Vital signs: Vital Signs Temp 97.4 F L 02/25/21 11:25 Pulse 60 02/25/21 11:25 Resp 18 02/25/21 11:25 BP 170/77 02/25/21 11:25 Pulse Ox 96 02/25/21 11:25 Intake & Output 02/24/21 02/25/21 02/25/21 18:59 06:59 18:59 Intake Total 360 Balance 360 Weight 55.5 kg 58 kg Intake: Oral 360 Other: Voiding Method Incontinent Incontinent Incontinent # Voids 1 1 - Exam GENERAL EXAM: Lethargic, 75-year-old white male, on 3 L of oxygen and pulse ox of 97-100% on today's exam HEAD: Normocephalic/atraumatic. EYES: Normal reaction of pupils, equal size. Conjunctiva pink, sclera white. NOSE: Clear with pink turbinates. THROAT: No erythema or exudates. NECK: No masses, no JVD, no thyroid enlargement, no adenopathy. CHEST: No chest wall deformity. Symmetrical expansion. LUNGS: Equal air entry with diminished breath sounds over the left lung CVS: Regular rate and rhythm, normal S1 and S2, no gallops, no murmurs, no rubs ABDOMEN: Soft, nontender. No hepatosplenomegaly, normal bowel sounds, slightly tender in the epigastric area EXTREMITIES: No clubbing, no edema, no cyanosis, 2+ pulses and upper and lower extremities. MUSCULOSKELETAL: Muscle strength and tone normal. SPINE: No scoliosis or deformity SKIN: No rashes CENTRAL NERVOUS SYSTEM: Lethargic No focal deficits, tone is normal in all 4 extremities. - Labs CBC & Chem 7: 02/23/21 20:13 02/22/21 06:18 Labs: Abnormal Lab Results - Last 24 Hours (Table) 02/24/21 02/24/21 02/24/21 Range/Units 11:38 16:38 20:21 POC Glucose (mg/dL) 250 H 178 H 204 H (75-99) mg/dL 02/25/21 Range/Units 06:18 POC Glucose (mg/dL) 175 H (75-99) mg/dL Microbiology - Last 24 Hours (Table) 02/18/21 12:38 Blood Culture - Final Blood No Growth after 144 hours 02/19/21 10:30 Blood Culture - Preliminary Blood No Growth after 120 hours Assessment and Plan Plan: #1. Pericardial effusion, status post pericardiocentesis would removal of 300 mL of bloody fluid, postoperative day number 6, pericardial drain has since been removed #2. Bilateral pleural effusions, left greater than right, status post left thoracentesis by interventional radiology today on 02/17/2021 and removal of 560 cc of pleural fluid which was sent for analysis, pleural fluid cultures showed no growth . The patient has developed recurrence left-sided pleural fluids. The chest x-ray showing near complete opacification of the left lung. #3. Enterococcus faecalis bacteremia, was on Rocephin and vancomycin, currently just on Rocephin, ID service is following. This was likely related to line infection, permacath was removed from the right subclavian and catheter tip was also positive for group D enterococcus and coagulase-negative staph #4. Status post removal of right permacath, cath tip was sent for culture #5. Acute on chronic hypoxic respiratory failure secondary to sepsis, pericardial effusion, and bilateral pleural effusions #6. End-stage renal disease on hemodialysis #7. Chronic A. fib on Eliquis, Eliquis is currently on hold #8. Permanent pacemaker #9. COPD on home oxygen at 4 L #10. Diabetes mellitus type 2 #11. History of hypertension #12. History of hyperlipidemia #13. History of TIA in 2019 #14. Recent history of a fall Plan: Obtain ultrasound of the chest and the markings was done. Patient is off anticoagulation and we are going to proceed with another thoracentesis today. Continue same treatment. Continue antibiotics. Dialysis per nephrology. The patient has a temporary dialysis catheter in her right femoral vein. Case was discussed with Abdirashid, her power of steam shovel operating engineer and boyfriend.
--- NOTE | 2021-02-25 11:52 | P.PCN ---
Date of Procedure: 02/25/21 Preoperative Diagnosis: Left-sided pleural effusion Postoperative Diagnosis: pleural effusion, left Procedure(s) Performed: thoracentesis, left Anesthesia: local Surgeon: Miriam Harris Estimated Blood Loss (ml): 0 Pathology: other Condition: stable Disposition: floor Operative Findings: A time out was performed and the chest x-ray was reviewed, the appropriate side was confirmed and marked. My hands were washed immediately prior to the procedure. I wore a surgical cap, mask with protective eyewear, sterile gown and sterile gloves throughout the procedure. The patient was prepped and draped in a sterile manner using chlorhexidine scrub after the appropriate level was pe rcussed and confirmed by ultrasound. 1% lidocaine was used to anesthesize the skin, subcutaneous tissue, superior aspect of the rib periosteum and parietal pleura. A finder needle was then introduced over the superior aspect of the rib to locate the pleural fluid; 2colored fluid was aspirated at a depth of approximately 2 cm. A 10-blade scalpel was used to becka the skin at the insertion site. The [id number] needle was then introduced through the skin incision into the pleural space using negative aspiration pressure and the red colometric indicator to confirm appropriate positioning of the needle. The thoracentesis catheter was then threaded without difficulty. 1400 ml of turbid colored fluid was removed without difficulty. The catheter was then removed. No immediate complications were noted during the procedure. A post-procedure chest x-ray is pending at the time of this note. The fluid will be sent for studies. Estimated blood loss is 0cc
[2021-02-25 12:13] LABS: Glucose,Whole Blood 181 mg/dL (75-99)
--- NOTE | 2021-02-25 12:24 | XR ---
EXAMINATION TYPE: XR chest 1V DATE OF EXAM: 02/25/2021 COMPARISON: 02/23/2021 HISTORY: Shortness of breath TECHNIQUE: Single frontal view of the chest is obtained. FINDINGS: No sizable pneumothorax postthoracentesis. There is near complete resolution of left-sided consolidation and pleural effusion. Right lung is clear without evidence of cardiomegaly and cardiac device. Arthropathy of the shoulders. IMPRESSION: 1. Near complete resolution of left-sided pleural effusion. 2. No sizable pneumothorax.
--- NOTE | 2021-02-25 14:26 | P.PN ---
Subjective Progress Note Date: 02/25/21 Follow-up for ESRD. Seemed urine dialysis, Hypotensive episodes during dialysis. She did had thoracentesis today morning. Objective - Vital Signs Vital signs: Vital Signs Temp 97.4 F L 02/25/21 11:25 Pulse 60 02/25/21 11:25 Resp 18 02/25/21 11:25 BP 170/77 02/25/21 11:25 Pulse Ox 96 02/25/21 11:25 Intake & Output 02/24/21 02/25/21 02/25/21 18:59 06:59 18:59 Intake Total 360 Output Total 1000 Balance 360 -1000 Weight 55.5 kg 58 kg Intake: Oral 360 Output: Hemodialysis 1000 Other: Voiding Method Incontinent Incontinent Incontinent # Voids 1 1 - Exam No acute distress S1-S2 heard Edema Femoral permacath - Labs CBC & Chem 7: 02/23/21 20:13 02/22/21 06:18 Labs: Abnormal Lab Results - Last 24 Hours (Table) 02/24/21 02/24/21 02/25/21 Range/Units 16:38 20:21 06:18 POC Glucose (mg/dL) 178 H 204 H 175 H (75-99) mg/dL 02/25/21 Range/Units 12:10 POC Glucose (mg/dL) 181 H (75-99) mg/dL Microbiology - Last 24 Hours (Table) 02/19/21 10:30 Blood Culture - Final Blood No Growth after 144 hours 02/18/21 12:38 Blood Culture - Final Blood No Growth after 144 hours Assessment and Plan Assessment: #1 ESRD TTS schedule. #2 enterococcus bacteremia status post removal of IJ permacath, currently has femoral permacath in the right groin. #3 anemia with ESRD #4 volume overload #5 hypotensive episodes Plan: #1 hemodialysis as outpatient schedule. 0 UF today with hypotensive episodes. #2 continue with midodrine for hemodynamic support #3 supportive care
[2021-02-25 17:10] LABS: Glucose,Whole Blood 241 mg/dL (75-99)
--- NOTE | 2021-02-25 18:51 | PN ---
PROGRESS NOTE DATE OF SERVICE: 02/25/2021 REASON FOR FOLLOWUP: Enterococcus faecalis bacteremia with PermCath infection. INTERVAL HISTORY: The patient is afebrile. The patient is status post surgical incision today has tolerated the procedure. Undergoing dialysis. Denies any chest pain, shortness of breath. Did have a cough, not bringing up any sputum. No vomiting. No abdominal pain or diarrhea. PHYSICAL EXAMINATION: Blood pressure 1/153, pulse of 90, temperature is 97.6, she is 91% on 4 L nasal cannula. General description is an elderly female lying in bed no distress respiratory system unlabored breathing, decreased breath sounds at the base. No wheeze. Heart S1, S2. Regular rate and rhythm. Abdomen soft no tenderness. LABS: No new labs have been obtained today. Repeat culture has been negative so far. DIAGNOSTIC IMPRESSION AND PLAN: Patient with Enterococcus faecalis bacteremia secondary to PermCath infection, status post removal of the catheter. Blood culture repeat has been negative. Did have a slight improvement with repeat x-ray showing near complete resolution of the effusion. No pneumothorax. The patient is covered with Unasyn. Transition to IV Vanco on discharge, which can be done through the dialysis. Questions were answered. MMODL / IJN: [id number] /
[2021-02-25 20:42] LABS: Glucose,Whole Blood 307 mg/dL (75-99)
--- NOTE | 2021-02-25 20:50 | P.PN ---
Subjective This is a pleasant 75 years old female with multiple medical problems presents with infected catheter of permacath, with positive blood culture with enterococcus, currently is being covered with Unasyn. Repeat blood cultures pending and if it is going to be negative then another permacath hemodialysis catheter will be placed tomorrow, to be followed by him on dialysis as patient has pulmonary congestion and with no urine output although her oxygen saturation is only on 3 L/m of oxygen. 02/21/2021 Patient is clinically the same, she is a little confused which looks like this is her baseline. Patient oriented oriented. Permacath is healing and closed. Patient Is pending ID team clearance to place another dialysis catheter. She is hemodynamically stable. Oxygen saturation is acceptable. Patient remains on Unasyn currently 02/22/2021 Patient more sleepy today after she got those [place] yesterday which were discontinue with. Given her renal function and to return to avoid narcotics as it may cause his aspiration and other problems for the patient. Patient vitals are stable. Creatinine is elevated which is expected as she is pending hemodialysis Blood culture are still negative and patient most likely will be cleared by ID team today to go for another permacath placement, that's done her anticoagulation can be switched to Eliquis. Patient currently is covered with Unasyn 02/23/2021 Patient still lethargic and confused. But she looks stable. Oxygen saturation is 90s on 6 L oxygen via nasal cannula. She has some mild abdominal pain and tenderness, no rebound tenderness. Rest of vitals are stable. Left showing leukocytosis over 12 K. Repeat blood culture is negative. She is having right thigh tunneled dialysis catheter and she underwent hemodialysis today. Hemodialysis is on Saturday Chest x-ray showing near opacification of the left lung with left pleural effusion. Abdominal CT without contrast showing fecal impaction ((No free air. Bilateral pleural effusion with adjacent consolidations. Increase on the right compared to prior study. Moderate colonic stool, most notable in the rectal vault. Correlate for fecal impaction. No obstruction or free air. Simple and complex bilateral renal cysts)) 02/24/2021 Patient is confused and more lethargic today but arousable. She denies any abdominal pain today. No abdominal tenderness and abdomen is soft. Hemodynamically stable. Leukocytosis went up to 14 K. Because of these fluconazole was added. Lungs showing complete ossification, chest ultrasound showing 8.7 cm left pleural effusion and patient is planned for left paracentesis. Hold Eliquis until then. 02/25/2021 Patient is awake but sleepy, she follows commands. Denies abdominal pain and tenderness. Hemodynamically stable she still on 4 L/m of oxygen. Patient underwent left thoracocentesis today with about 1.4 L of fluid taken out. Chest x-ray showing almost complete resolution of the left pleural effusion. She remains on the same medication of Eliquis, Unasyn and fluconazole with the plan to switch to IV vancomycin upon discharge Objective - Vital Signs Vital signs: Vital Signs Temp 97.4 F L 02/25/21 11:25 Pulse 60 02/25/21 11:25 Resp 18 02/25/21 11:25 BP 170/77 02/25/21 11:25 Pulse Ox 96 02/25/21 11:25 Intake & Output 02/24/21 02/25/21 02/25/21 18:59 06:59 18:59 Intake Total 360 Output Total 1000 Balance 360 -1000 Weight 55.5 kg 58 kg Intake: Oral 360 Output: Hemodialysis 1000 Other: Voiding Method Incontinent Incontinent Incontinent # Voids 1 1 - Exam -GENERAL: The patient is alert and oriented x3, not in any acute distress. Well developed, well nourished. Generally weak HEENT: Pupils are round and equally reacting to light. EOMI. No scleral icterus. No conjunctival pallor. Normocephalic, atraumatic. No pharyngeal erythema. No thyromegaly. CARDIOVASCULAR: S1 and S2 present. No murmurs, rubs, or gallops. PULMONARY: Chest is clear to auscultation, no wheezing or crackles. ABDOMEN: Soft, nontender, nondistended, normoactive bowel sounds. No palpable organomegaly. MUSCULOSKELETAL: No joint swelling or deformity. EXTREMITIES: No cyanosis, clubbing, or pedal edema. NEUROLOGICAL: Gross neurological examination did not reveal any focal deficits. SKIN: No rashes. no petechiae. - Labs CBC & Chem 7: 02/23/21 20:13 02/22/21 06:18 Labs: Abnormal Lab Results - Last 24 Hours (Table) 02/24/21 02/24/21 02/25/21 Range/Units 16:38 20:21 06:18 POC Glucose (mg/dL) 178 H 204 H 175 H (75-99) mg/dL 02/25/21 Range/Units 12:10 POC Glucose (mg/dL) 181 H (75-99) mg/dL Microbiology - Last 24 Hours (Table) 02/19/21 10:30 Blood Culture - Final Blood No Growth after 144 hours 02/18/21 12:38 Blood Culture - Final Blood No Growth after 144 hours Assessment and Plan Assessment: Enterococcus bacteremia secondary to infected hemodialysis catheter which is removed Pulmonary congestion with mild hypoxic respiratory failure secondary to missed hemodialysis Left pleural effusion with complete opacification. Status post left thoracocentesis with 1.4 L removed on 02/25 Abdominal pain secondary to fecal impaction creatinine improved with bowel movements. This will End-stage renal disease on hemodialysis Fecal impaction. Improved Chronic atrial fibrillation on Eliquis Status post pacemaker Plan: This is a pleasant 75 years old female with infected catheter and positive blood culture with enterococcus. Continue with Unasyn and fluconazole and follow-up repeat blood culture Status post right thigh permacath and patient undergoing by hemodialysis next on Sunday 02/25 Continue Eliquis 2.5 mg twice a day, hold and resume after thoracocentesis. Resume per pulmonary. Keep patient on subcutaneous heparin for now No more abdominal pain, keep monitoring Several consultants on the case, pulmonary, nephrology and infectious disease team. Safety Teacher signed off Labs and medication were reviewed.. Continue same treatment. Continue with symptomatic treatment. Resume home medication. Monitor lytes and vitals. DVT and GI prophylaxis. Further recommendations as per clinical course of the patient DVT prophylaxis: heparin GI Prophylaxis: Pepcid Prognosis is guarded
[2021-02-25] MEDS: EZETIMIBE 10 MG TAB PO SCH (21:31)
[2021-02-26] MEDS: HEPARIN SODIUM,PORCINE/PF 5,000 UNIT/0.5 ML SYRINGE SQ SCH ×3 (00:14→17:00)
[2021-02-26] MEDS: NYSTATIN 100,000UNIT/GM CREAM 30 GM TUBE TOPICAL SCH ×3 (00:14→20:59)
[2021-02-26 06:09] LABS: Glucose,Whole Blood 180 mg/dL (75-99)
[2021-02-26] MEDS: INSULIN ASPART (NovoLOG) 100 UNIT/ML VIAL SQ SCH ×4 (06:37→21:00)
[2021-02-26] MEDS: ALBUTEROL NEBULIZED 2.5 MG/3 ML INHALATION SCH ×4 (07:50→19:00)
[2021-02-26] MEDS ORDERED: LIDOCAINE 1% INJ 10MG/ML (20 ML MDV) SQ ONE (10:03)
[2021-02-26] MEDS ORDERED: IOPAMIDOL-370 50ML BTL INJ ONE (10:10)
[2021-02-26] MEDS: SEVELAMER 800 MG TAB PO SCH ×4 (10:43→20:59)
[2021-02-26] MEDS: ASCORBIC ACID 500 MG TAB PO SCH (11:21)
[2021-02-26] MEDS: SODIUM BICARBONATE TAB 650 MG TAB PO SCH ×3 (11:21→20:59)
[2021-02-26] MEDS: FAMOTIDINE 20 MG TAB PO SCH (11:21)
[2021-02-26] MEDS: CYANOCOBALAMIN 500 MCG TAB PO SCH (11:22)
[2021-02-26] MEDS: AMPICILLIN-SULBACTAM 3 GM in SODIUM CHLORIDE 0.9% 100 ML IVPB SCH (11:22)
[2021-02-26] MEDS: FLUCONAZOLE 100 MG TAB PO SCH (11:22)
[2021-02-26] MEDS: traMADol 50 MG TAB PO PRN (11:23)
[2021-02-26] MEDS: FOLIC ACID-VIT B COMPLEX-VIT C 1 CAP PO SCH (11:38)
--- NOTE | 2021-02-26 11:52 | P.PN ---
Subjective Progress Note Date: 02/26/21 On 02/17/2021 patient seen in follow-up on selective care unit, patient is status post pericardiocentesis with placement of a pigtail drain, postoperative day #2, and bilateral pleural effusions, left greater than right, status post left thoracentesis by interventional radiology with removal of 560 mL of pleural fluid. Follow-up chest x-ray after the procedure showed improvement in aeration of the left lung. Patient is currently on 4 L of oxygen, and his pulse ox is 97-100%, hemodynamically stable, he is afebrile. Patient's blood culture was positive for Enterococcus faecalis patient is on Rocephin for antibiotic coverage, there was a concern for possibly infected permacath which was removed, and catheter tip cultures have been ordered. Patient was initially covered with vancomycin, ID service is following and current abiotic coverage is just with Rocephin. he is breathing comfortably, he is more awake and alert on today's exam, no chest pain, no abdominal pain, no nausea or vomiting. No diarrhea. On 02/18/2021 patient seen in follow-up on selective care unit. Patient is awake and alert, in no acute distress, she is on 3 L of oxygen, with a pulse ox of 97%. No worsening dyspnea at rest, she does have exertional dyspnea. No fever or chills. Patient is incontinent of urine, she does avoid, it urine output is difficult to estimate as the patient is incontinent. She remains on antibiotics in the form of ceftriaxone and vancomycin for enterococcus bacteremia, her follow-up blood cultures have shown no growth thus far, last set was sent on 02/16/2021, her permacath catheter was removed by vascular surgery and catheter tip has been sent for culture, reported on the cultures thus far, patient is status post left-sided thoracentesis, so far pleural fluid cultures remain negative. Patient is supposed to have a new hemodialysis catheter inserted today by vascular surgery. On 02/20/2021 patient seen in follow-up on selective care unit. She is currently working with physical therapy, she sitting up on the edge of the bed. She is breathing comfortably, denies any dyspnea, no cough, no chest discomfort. Lung sounds reveal diminished breath sounds with dullness at the left base, and left pleural effusion is suspected, we will obtain follow-up chest x-ray later o n today, however in terms of oxygenation it has remained stable, she is currently still on 3 L a pulse ox of 100%. The labs have been reviewed but cell count is stable, at 12.1, hemoglobin is 9.4, INR is 1.2, sodium is 134, renal profile slightly worse, with BUN of 51, creatinine is 5.51. No Significant edema involving lower extremities. Remains on antibiotics in the form of ampicillin for enterococcus bacteremia, her right subclavian permacath has been removed, and catheter tip also shows quite is negative staph and group D enterococcus. Follow blood cultures have shown no growth at the 24-hour roney. Pleural fluid culture is still pending, preliminary Gram stain showed no organisms. Pe ricardial catheter has been removed a few days ago. Blood pressure has been stable On 02/21/2021 patient seen in follow-up on selective care unit, she is awake and alert, slightly irritable, but denies any breathing issues, no shortness of breath, only occasional cough, no phlegm production, no complaints of chest pain, she remains on the same 3 L of supplemental oxygen that she was on for last few days. Her pulse ox is 93-97%, she's been afebrile, hemodynamically she has been stable, yesterday's follow-up chest x-ray showed recurrence of a moderately sized left-sided pleural effusion. Patient had her right subclavian permacath removed, and the catheter tip was showing evidence of D enterococcus, follow-up blood cultures have been sent, and have shown no growth thus far, final cultures are still pending, no fever or chills overnight. Patient is incontinent of small amount of urine, no worsening dyspnea, no worsening edema in bilateral lower extremities. No nausea no vomiting no diarrhea. She remains on antibiotics in the form of Unasyn., On 02/22/2021 patient seen in follow-up on selective care unit, she seems to be in moderate to severe amount of distress, she is complaining of sharp abdominal pain, abdomen is soft, however in the upper midabdomen there is tenderness to palpation. And CT of the abdomen and pelvis has already been ordered by the primary care service and is pending at this time. Otherwise she denies any worsening dyspnea, remains on 4 L of oxygen pulse ox of 95%, lung sounds are diminished at the bases, her chest x-ray from a couple days ago showed increasing left-sided pleural effusion, however clinically patient has been maintaining her O2 saturations, and denying any chest discomfort or worsening dyspnea. Her follow-up blood culture from 02/18/2021 has shown no growth, and that she is supposed to have a new permacath dialysis catheter inserted. Her heparin infusion has been on hold, today's labs have been reviewed, BUN 60, creatinine 6.18. There is a mild lower extremity edema. And patient continues on Unasyn for group D enterococcus bacteremia related to permacath line infection. On 02/23/2021 patient seen in follow-up on [facility] care unit, she had a right femoral temporary dialysis catheter inserted yesterday and she had hemodialysis today with removal of 1 L of fluid, she is lethargic on today's exam, she has been getting IV Dilaudid for abdominal pain. Computed tomography scan has not been completed yet, diminished soft, and apparently when the patient is awake she does complaining of abdominal discomfort. He is on 4 L oxygen pulse ox is 93%, lung sounds are diminished at the bases, with dullness over left lower and mid lung. She's had no fever. Her follow-up blood cultures starting on 02/18/2021 have been negative. On 02/24/2021 patient seen in follow-up. Patient has been dialyzed again yesterday, and 1 L of fluid was removed. Follow-up chest x-ray yesterday showed worsening left sided pleural effusion, with near complete opacification of the left lung. Today's exam patient is more lethargic and per nursing reports she is more confused. She is resistant to care, she does not want to sit up in bed, she does not want to cooperate with care. 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 Lung sounds reveal very diminished breath sounds on the left, with dullness to percussion. She is currently on 4 L of oxygen the pulse ox of 96%, she is afebrile, denies any chest pain, she has a temporary hemodialysis catheter in place. Her follow-up blood cultures have been negative, she continues on antibiotics in the form of Unasyn for the bacteremia, and line infection. Had no fever or chills. 2020, eyes discussed the case with the POA and the patient has been completed fixation of the left lung and the patient will need another thoracentesis. The patient is under the care of nephrology regarding her chronic kidney disease and she is requiring hemodialysis episodically. She is currently on 2 L of oxygen by nasal cannula. She is off anticoagulation since yesterday. Mild degree of respiratory distress at rest. Not using excessive muscle breathing. She is on IV antibiotics and the patient is on the Unasyn and Diflucan. She has a temper dialysis catheter in place in her right groin. The catheter tip that was removed on 02/16/2021 was positive for group D enterococcus in the blood culture was also positive. She remains on IV Unasyn for now. Today's evaluation of 02/26/2021, respiratory status is stable. The patient on oxygen at 4 L per minute nasal cannula. She underwent thoracentesis of the left lung with complete evacuation of the left-sided pleural effusion. She also underwent hemodialysis yesterday with 1 L of ultrafiltration. She is currently on 4 L of oxygen by nasal cannula. No chest pain. No respiratory difficulties. On and off confused. She remains on IV Unasyn regarding enterococcus septicemia which was attributed to a line infection. The catheter Was positive in the blood culture was also positive. Objective - Vital Signs Vital signs: Vital Signs Temp 98.2 F 02/26/21 00:00 Pulse 60 02/26/21 08:00 Resp 20 02/26/21 04:00 BP 121/57 02/26/21 04:00 Pulse Ox 100 02/26/21 07:50 Intake & Output 02/25/21 02/26/21 02/26/21 18:59 06:59 18:59 Output Total 1000 0 Balance -1000 0 Weight 63 kg Output: Urine 0 Hemodialysis 1000 Other: Voiding Method Incontinent Incontinent # Voids 1 0 - Exam GENERAL EXAM: Lethargic, 75-year-old white male, on 4 L of oxygen and pulse ox of 97-100% on today's exam HEAD: Normocephalic/atraumatic. EYES: Normal reaction of pupils, equal size. Conjunctiva pink, sclera white. NOSE: Clear with pink turbinates. THROAT: No erythema or exudates. NECK: No masses, no JVD, no thyroid enlargement, no adenopathy. CHEST: No chest wall deformity. Symmetrical expansion. LUNGS: Equal air entry with diminished breath sounds over the left lung CVS: Regular rate and rhythm, normal S1 and S2, no gallops, no murmurs, no rubs ABDOMEN: Soft, nontender. No hepatosplenomegaly, normal bowel sounds, slightly tender in the epigastric area EXTREMITIES: No clubbing, no edema, no cyanosis, 2+ pulses and upper and lower extremities. MUSCULOSKELETAL: Muscle strength and tone normal. SPINE: No scoliosis or deformity SKIN: No rashes CENTRAL NERVOUS SYSTEM: Lethargic No focal deficits, tone is normal in all 4 extremities. - Labs CBC & Chem 7: 02/23/21 20:13 02/22/21 06:18 Labs: Abnormal Lab Results - Last 24 Hours (Table) 02/25/21 02/25/21 02/25/21 Range/Units 12:10 17:09 20:41 POC Glucose (mg/dL) 181 H 241 H 307 H (75-99) mg/dL 02/26/21 Range/Units 06:08 POC Glucose (mg/dL) 180 H (75-99) mg/dL Microbiology - Last 24 Hours (Table) 02/19/21 10:30 Blood Culture - Final Blood No Growth after 144 hours Assessment and Plan Plan: #1. Pericardial effusion, status post pericardiocentesis would removal of 300 mL of bloody fluid, postoperative day number 6, pericardial drain has since been removed #2. Bilateral pleural effusions, left greater than right, status post left thoracentesis by interventional radiology today on 02/17/2021 and removal of 560 cc of pleural fluid which was sent for analysis, pleural fluid cultures showed no growth . The patient has developed recurrence left-sided pleural fluids. The chest x-ray showing near complete opacification of the left lung. #3. Enterococcus faecalis bacteremia, was on Rocephin and vancomycin, currently just on Rocephin, ID service is following. This was likely related to line infection, permacath was removed from the right subclavian and catheter tip was also positive for group D enterococcus and coagulase-negative staph #4. Status post removal of right permacath, cath tip was sent for culture #5. Acute on chronic hypoxic respiratory failure secondary to sepsis, lambert cardial effusion, and bilateral pleural effusions #6. End-stage renal disease on hemodialysis #7. Chronic A. fib on Eliquis, #8. Permanent pacemaker #9. COPD on home oxygen at 4 L #10. Diabetes mellitus type 2 #11. History of hypertension #12. History of hyperlipidemia #13. History of TIA in 2019 #14. Recent history of a fall Plan: Total of 1400 mL of fluid was removed and left hemithorax and the patient has had excellent results with complete resolution of the left-sided pleural effusion. She is currently on 4 L of oxygen by nasal cannula. She is undergoing hemodialysis per nephrology. The patient remains on Unasyn regarding her septicemia. Anti-coagulation is resume.
[2021-02-26 12:04] LABS: Glucose,Whole Blood 168 mg/dL (75-99)
--- NOTE | 2021-02-26 14:27 | OP ---
OPERATIVE REPORT PREOPERATIVE DIAGNOSIS: Acute on chronic renal failure, malfunctioning catheter. POSTOPERATIVE DIAGNOSIS: Acute on chronic renal failure, malfunctioning catheter. PROCEDURE: 1. Inferior vena cavogram. 2. Placement of a 44 cm dialysis catheter right femoral vein. DESCRIPTION: This patient has a history of chronic failure, patient had a dialysis catheter placed on the right side in the right femoral vein because the right IJ catheter was infected, which has been removed. 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 The patient had a pacemaker on the left side which was not accessible. The patient was having dialysis, but according to the dialysis nurse there is an air leak. Patient was brought to the labor delivery specialist and the right leg was prepped and drapes applied in sterile manner with local IV sedation. Right femoral catheter was identified at the groin and divided and the guidewire was passed and we placed a sheath through the groin and we did the vena cavogram. The vena cava was found to be patent and no clot was seen. After that, a new tunnel was made, through the new tunnel we brought 4-4 cm dialysis catheter in the groin incision. The old catheter was removed and the catheter was introduced through the sheath in the inferior vena cava. Flushed with heparin and saline and hep-locked and secured with 3-0 nylon. Dressing applied. Patient tolerated the procedure well. Sedation time is 25 minutes. The patient transferred to the room in satisfactory condition. MAYA / DAYAMI: [id number] /
--- NOTE | 2021-02-26 14:50 | P.PN ---
Subjective Progress Note Date: 02/26/21 Follow-up for ESRD. Had issues during dialysis yesterday, permacath was exchanged. Objective - Vital Signs Vital signs: Vital Signs Temp 97.7 F 02/26/21 11:00 Pulse 60 02/26/21 11:00 Resp 20 02/26/21 11:00 BP 118/56 02/26/21 11:00 Pulse Ox 99 02/26/21 11:00 Intake & Output 02/25/21 02/26/21 02/26/21 18:59 06:59 18:59 Output Total 1000 0 Balance -1000 0 Weight 63 kg Output: Urine 0 Hemodialysis 1000 Other: Voiding Method Incontinent Incontinent Incontinent # Voids 1 0 1 # Bowel Movements 1 - Exam No acute distress S1-S2 heard Edema Femoral permacath - Labs CBC & Chem 7: 02/23/21 20:13 02/22/21 06:18 Labs: Abnormal Lab Results - Last 24 Hours (Table) 02/25/21 02/25/21 02/26/21 Range/Units 17:09 20:41 06:08 POC Glucose (mg/dL) 241 H 307 H 180 H (75-99) mg/dL 02/26/21 Range/Units 12:02 POC Glucose (mg/dL) 168 H (75-99) mg/dL Microbiology - Last 24 Hours (Table) 02/19/21 10:30 Blood Culture - Final Blood No Growth after 144 hours Assessment and Plan Assessment: #1 ESRD TTS schedule. #2 enterococcus bacteremia status post removal of IJ permacath, currently has femoral permacath in the right groin. #3 anemia with ESRD #4 volume overload #5 hypotensive episodes Plan: #1 hemodialysis as outpatient schedule. 0 UF today with hypotensive episodes yesterday. #2 continue with midodrine for hemodynamic support #3 supportive care
[2021-02-26 16:55] LABS: Glucose,Whole Blood 215 mg/dL (75-99)
--- NOTE | 2021-02-26 18:38 | PN ---
PROGRESS NOTE DATE OF SERVICE: 02/26/2021 REASON FOR FOLLOW UP: Enterococcus faecalis bacteremia. INTERVAL HISTORY: Patient is afebrile. The patient is breathing comfortably. The patient did have a problem with a new dialysis catheter and has to be changed this morning. The patient tolerated the procedure. Denies having any chest pain or shortness of breath. Occasional cough. No abdominal pain. No diarrhea. PHYSICAL EXAMINATION: Blood pressure 118/66, pulse of 84, temperature 97.7, she is 99% on 4 L nasal cannula. General description is an elderly female lying in bed in no distress. Respiratory system: Unlabored breathing, decreased breath sounds in the bases. Heart S1, S2. Regular rate and rhythm. Abdomen: Soft. No tenderness. LABS: No new labs have been obtained today. Blood culture repeat has been negative. DIAGNOSTIC IMPRESSION AND PLAN: Patient with Enterococcus faecalis bacteremia. Plan at this time to continue Unasyn transition to vancomycin, Pharmacy to dose. on discharge. at the bedside. His questions and concerns were answered. MMODL / IJN: [id number] /
--- NOTE | 2021-02-26 20:01 | P.PN ---
Subjective This is a pleasant 75 years old female with multiple medical problems presents with infected catheter of permacath, with positive blood culture with enterococcus, currently is being covered with Unasyn. Repeat blood cultures pending and if it is going to be negative then another permacath hemodialysis catheter will be placed tomorrow, to be followed by him on dialysis as patient has pulmonary congestion and with no urine output although her oxygen saturation is only on 3 L/m of oxygen. 02/21/2021 Patient is clinically the same, she is a little confused which looks like this is her baseline. Patient oriented oriented. Permacath is healing and closed. Patient Is pending ID team clearance to place another dialysis catheter. She is hemodynamically stable. Oxygen saturation is acceptable. Patient remains on Unasyn currently 02/22/2021 Patient more sleepy today after she got those [place] yesterday which were discontinue with. Given her renal function and to return to avoid narcotics as it may cause his aspiration and other problems for the patient. Patient vitals are stable. Creatinine is elevated which is expected as she is pending hemodialysis Blood culture are still negative and patient most likely will be cleared by ID team today to go for another permacath placement, that's done her anticoagulation can be switched to Eliquis. Patient currently is covered with Unasyn 02/23/2021 Patient still lethargic and confused. But she looks stable. Oxygen saturation is 90s on 6 L oxygen via nasal cannula. She has some mild abdominal pain and tenderness, no rebound tenderness. Rest of vitals are stable. Left showing leukocytosis over 12 K. Repeat blood culture is negative. She is having right thigh tunneled dialysis catheter and she underwent hemodialysis today. Hemodialysis is on Saturday Chest x-ray showing near opacification of the left lung with left pleural effusion. Abdominal CT without contrast showing fecal impaction ((No free air. Bilateral pleural effusion with adjacent consolidations. Increase on the right compared to prior study. Moderate colonic stool, most notable in the rectal vault. Correlate for fecal impaction. No obstruction or free air. Simple and complex bilateral renal cysts)) 02/24/2021 Patient is confused and more lethargic today but arousable. She denies any abdominal pain today. No abdominal tenderness and abdomen is soft. Hemodynamically stable. Leukocytosis went up to 14 K. Because of these fluconazole was added. Lungs showing complete ossification, chest ultrasound showing 8.7 cm left pleural effusion and patient is planned for left paracentesis. Hold Eliquis until then. 02/25/2021 Patient is awake but sleepy, she follows commands. Denies abdominal pain and tenderness. Hemodynamically stable she still on 4 L/m of oxygen. Patient underwent left thoracocentesis today with about 1.4 L of fluid taken out. Chest x-ray showing almost complete resolution of the left pleural effusion. She remains on the same medication of Eliquis, Unasyn and fluconazole with the plan to switch to IV vancomycin upon discharge 02/26/2021 Patient looks more comfortable and awake and interactive today. She had a bowel movement today. No abdominal pain or tenderness. Breathing is quiet She is hemodynamically stable, on 4 L oxygen via nasal cannula No labs for today. She kept on Unasyn and fluconazole per ID team Nephrology team on the case for her end-stage renal disease She is status post left thoracocentesis yesterday She underwent dialysis catheter placement today Her Eliquis was placed on hold on 7:30 because of the thoracocentesis and catheter placement today. Currently on subcutaneous heparin. We will discuss with vascular surgery team as this okay will resume her Eliquis tonight, discussed with the staff Objective - Vital Signs Vital signs: Vital Signs Temp 97.7 F 02/26/21 11:00 Pulse 62 02/26/21 15:57 Resp 20 02/26/21 11:00 BP 118/56 02/26/21 11:00 Pulse Ox 99 02/26/21 11:00 Intake & Output 02/25/21 02/26/21 02/26/21 18:59 06:59 18:59 Output Total 1000 0 Balance -1000 0 Weight 63 kg Output: Urine 0 Hemodialysis 1000 Other: Voiding Method Incontinent Incontinent Incontinent # Voids 1 0 1 # Bowel Movements 1 - Exam -GENERAL: The patient is alert and oriented x3, not in any acute distress. Well developed, well nourished. Generally weak HEENT: Pupils are round and equally reacting to light. EOMI. No scleral icterus. No conjunctival pallor. Normocephalic, atraumatic. No pharyngeal erythema. No thyromegaly. CARDIOVASCULAR: S1 and S2 present. No murmurs, rubs, or gallops. PULMONARY: Chest is clear to auscultation, no wheezing or crackles. ABDOMEN: Soft, nontender, nondistended, normoactive bowel sounds. No palpable organomegaly. MUSCULOSKELETAL: No joint swelling or deformity. EXTREMITIES: No cyanosis, clubbing, or pedal edema. NEUROLOGICAL: Gross neurological examination did not reveal any focal deficits. SKIN: No rashes. no petechiae. - Labs CBC & Chem 7: 02/23/21 20:13 02/22/21 06:18 Labs: Abnormal Lab Results - Last 24 Hours (Table) 02/25/21 02/26/21 02/26/21 Range/Units 20:41 06:08 12:02 POC Glucose (mg/dL) 307 H 180 H 168 H (75-99) mg/dL 02/26/21 Range/Units 16:53 POC Glucose (mg/dL) 215 H (75-99) mg/dL Assessment and Plan Assessment: Enterococcus bacteremia secondary to infected hemodialysis catheter which is removed Pulmonary congestion with mild hypoxic respiratory failure secondary to missed hemodialysis Left pleural effusion with complete opacification. Status post left thor acocentesis with 1.4 L removed on 02/25 Abdominal pain secondary to fecal impaction creatinine improved with bowel movements. Improved End-stage renal disease on hemodialysis. Status post dialysis catheter placement on 02/26 Fecal impaction. Improved Chronic atrial fibrillation on Eliquis Status post pacemaker Plan: This is a pleasant 75 years old female with infected catheter and positive blood culture with enterococcus. Continue with Unasyn and fluconazole and follow-up repeat blood culture Status post right thigh permacath and patient undergoing by hemodialysis next on Sunday 02/25 Continue Eliquis 2.5 mg twice a day, hold and resume after thoracocentesis. Res ume per pulmonary. Keep patient on subcutaneous heparin for now No more abdominal pain, keep monitoring Several consultants on the case, pulmonary, nephrology and infectious disease team. [facility] Laboratory Assistant signed off Labs and medication were reviewed.. Continue same treatment. Continue with symptomatic treatment. Resume home medication. Monitor lytes and vitals. DVT and GI prophylaxis. Further recommendations as per clinical course of the patient DVT prophylaxis: heparin, may be replaced to Eliquis tonight GI Prophylaxis: Pepcid Prognosis is guarded
[2021-02-26 20:27] LABS: Glucose,Whole Blood 242 mg/dL (75-99)
[2021-02-26] MEDS: EZETIMIBE 10 MG TAB PO SCH (20:59)
[2021-02-26] MEDS: ACETAMINOPHEN TAB 325 MG TAB PO PRN (21:00)
[2021-02-27] MEDS: HEPARIN SODIUM,PORCINE/PF 5,000 UNIT/0.5 ML SYRINGE SQ SCH ×4 (00:01→23:36)
[2021-02-27 06:21] LABS: Glucose,Whole Blood 195 mg/dL (75-99)
[2021-02-27] MEDS: SEVELAMER 800 MG TAB PO SCH ×4 (06:29→20:59)
[2021-02-27] MEDS: INSULIN ASPART (NovoLOG) 100 UNIT/ML VIAL SQ SCH ×4 (06:29→20:59)
[2021-02-27] MEDS: ALBUTEROL NEBULIZED 2.5 MG/3 ML INHALATION SCH ×4 (08:31→19:20)
[2021-02-27] MEDS: AMPICILLIN-SULBACTAM 3 GM in SODIUM CHLORIDE 0.9% 100 ML IVPB SCH (08:59)
[2021-02-27] MEDS: FLUCONAZOLE 100 MG TAB PO SCH (09:00)
[2021-02-27] MEDS: CYANOCOBALAMIN 500 MCG TAB PO SCH (09:00)
[2021-02-27] MEDS: FAMOTIDINE 20 MG TAB PO SCH (09:00)
[2021-02-27] MEDS: ASCORBIC ACID 500 MG TAB PO SCH (09:00)
[2021-02-27] MEDS: FOLIC ACID-VIT B COMPLEX-VIT C 1 CAP PO SCH (09:01)
[2021-02-27] MEDS: SODIUM BICARBONATE TAB 650 MG TAB PO SCH ×3 (09:01→20:59)
[2021-02-27] MEDS: NYSTATIN 100,000UNIT/GM CREAM 30 GM TUBE TOPICAL SCH ×2 (09:01→21:20)
--- NOTE | 2021-02-27 09:03 | IR ---
EXAMINATION TYPE: IR cvc insert central tunneled DATE OF EXAM: 02/26/2021 COMPARISON: NONE HISTORY: Fluoroscopy time. Fluoroscopy was provided to the referring clinician.
--- NOTE | 2021-02-27 09:34 | P.PN ---
Subjective Patient is seen in follow-up for end-stage renal disease. She is maintained on hemodialysis on Saturday schedule. Blood culture were positive for enterococcus facialis. She is on IV antibiotics. Chest permacath has been removed. She now has a groin tunneled femoral catheter. Patient remains confused. Vital signs are stable. General: The patient appeared well nourished and normally developed. HEENT: Head exam is unremarkable. On nasal cannula. LUNGS: Breath sounds decreased. HEART: Rate and Rhythm are regular. ABDOMEN: Soft, no distention. EXTREMITITES: No edema. Objective - Vital Signs Vital signs: Vital Signs Temp 98.2 F 02/27/21 04:00 Pulse 65 02/27/21 08:43 Resp 20 02/27/21 04:00 BP 135/61 02/27/21 04:00 Pulse Ox 96 02/27/21 08:31 Intake & Output 02/26/21 02/27/21 02/27/21 18:59 06:59 18:59 Intake Total 240 Balance 240 Weight 51 kg Intake: Oral 240 Other: Voiding Method Incontinent Incontinent # Voids 1 1 # Bowel Movements 1 - Labs CBC & Chem 7: 02/23/21 20:13 02/22/21 06:18 Labs: Abnormal Lab Results - Last 24 Hours (Table) 02/26/21 02/26/21 02/26/21 Range/Units 12:02 16:53 20:26 POC Glucose (mg/dL) 168 H 215 H 242 H (75-99) mg/dL 02/27/21 Range/Units 06:19 POC Glucose (mg/dL) 195 H (75-99) mg/dL Assessment and Plan Plan: Assessment: 1. End-stage renal disease maintained on hemodialysis on Saturday schedule via a tunneled right femoral catheter that was placed 02/26/2021. 2. Altered mental status from sepsis. Patient also has baseline dementia. 3. Enterococcus bacteremia with source being permacath - discontinued February 16. 4. Hyperkalemia secondary to chronic kidney disease and metabolic acidosis. Resolved. 5. Anemia of chronic kidney disease. Hemoglobin stable. 6. Chronic kidney disease mineral bone disease maintained on Renvela. 7. Pericardial effusion status post pericardiocentesis. 8. Metabolic acidosis secondary to chronic kidney disease maintained on oral bicarb. Plan: Hemodialysis tomorrow.
[2021-02-27 11:43] LABS: Glucose,Whole Blood 264 mg/dL (75-99)
[2021-02-27 11:43] LABS: Glucose,Whole Blood 237 mg/dL (75-99)
[2021-02-27 12:25] VITALS: BMI 19.9
--- NOTE | 2021-02-27 12:25 | XR ---
EXAMINATION TYPE: XR chest 1V portable DATE OF EXAM: 02/27/2021 Comparison: 02/25/2021 Clinical History: 75-year-old female pleural effusion Findings: Right anterior chest wall pacemaker generator with a right-sided and right ventricular leads. Loop re dontrell device noted. Heart mildly enlarged. Diffuse interstitial density has increased. New small lef t pleural effusion with left basilar opacity. Impression: Interval development of CHF with pulmonary vascular congestion. New small left pleural effusion with prominent adjacent left basilar atelectasis and/or consolidation.
[2021-02-27] MEDS: traMADol 50 MG TAB PO PRN (12:33)
--- NOTE | 2021-02-27 13:29 | P.PN ---
Subjective Progress Note Date: 02/27/21 Principal diagnosis: Bilateral pleural effusion, left greater than right, pericardial effusion, status post pericardiocentesis On 02/17/2021 patient seen in follow-up on selective care unit, patient is status post pericardiocentesis with placement of a pigtail drain, postoperative day #2, and bilateral pleural effusions, left greater than right, status post left thoracentesis by interventional radiology with removal of 560 mL of pleural fluid. Follow-up chest x-ray after the procedure showed improvement in aeration of the left lung. Patient is currently on 4 L of oxygen, and his pulse ox is 97-100%, hemodynamically stable, he is afebrile. Patient's blood culture was p ositive for Enterococcus faecalis patient is on Rocephin for antibiotic coverage, there was a concern for possibly infected permacath which was removed, and catheter tip cultures have been ordered. Patient was initially covered with vancomycin, ID service is following and current abiotic coverage is just with Rocephin. he is breathing comfortably, he is more awake and alert on today's exam, no chest pain, no abdominal pain, no nausea or vomiting. No diarrhea. On 02/18/2021 patient seen in follow-up on selective care unit. Patient is awake and alert, in no acute distress, she is on 3 L of oxygen, with a pulse ox of 97%. No worsening dyspnea at rest, she does have exertional dyspnea. No fever or chills. Patient is incontinent of urine, she does avoid, it urine output is difficult to estimate as the patient is incontinent. She remains on antibiotics in the form of ceftriaxone and vancomycin for enterococcus bacteremia, her follow-up blood cultures have shown no growth thus far, last set was sent on 02/16/2021, her permacath catheter was removed by vascular surgery and catheter tip has been sent for culture, reported on the cultures thus far, patient is status post left-sided thoracentesis, so far pleural fluid cultures remain negative. Patient is supposed to have a new hemodialysis catheter inserted today by vascular surgery. On 02/20/2021 patient seen in follow-up on selective care unit. She is currently working with physical therapy, she sitting up on the edge of the bed. She is breathing comfortably, denies any dyspnea, no cough, no chest discomfort. Lung sounds reveal diminished breath sounds with dullness at the left base, and left pleural effusion is suspected, we will obtain follow-up chest x-ray later on today, however in terms of oxygenation it has remained stable, she is currently still on 3 L a pulse ox of 100%. The labs have been reviewed but cell count is stable, at 12.1, hemoglobin is 9.4, INR is 1.2, sodium is 134, renal profile slightly worse, with BUN of 51, creatinine is 5.51. No Significant edema involving lower extremities. Remains on antibiotics in the form of ampicillin for enterococcus bacteremia, her right subclavian permacath has been removed, and catheter tip also shows quite is negative staph and group D enterococcus. Follow blood cultures have shown no growth at the 24-hour roney. Pleural fluid culture is still pending, preliminary Gram stain showed no organisms. Pericardial catheter has been removed a few days ago. Blood pressure has been stable On 02/21/2021 patient seen in follow-up on selective care unit, she is awake and alert, slightly irritable, but denies any breathing issues, no shortness of breath, only occasional cough, no phlegm production, no complaints of chest pain, she remains on the same 3 L of supplemental oxygen that she was on for last few days. Her pulse ox is 93-97%, she's been afebrile, hemodynamically she has been stable, yesterday's follow-up chest x-ray showed recurrence of a moderately sized left-sided pleural effusion. Patient had her right subclavian permacath removed, and the catheter tip was showing evidence of D enterococcus, follow-up blood cultures have been sent, and have shown no growth thus far, final cultures are still pending, no fever or chills overnight. Patient is incontinent of small amount of urine, no worsening dyspnea, no worsening edema in bilateral lower extremities. No nausea no vomiting no diarrhea. She remains on antibiotics in the form of Unasyn., On 02/22/2021 patient seen in follow-up on selective care unit, she seems to be in moderate to severe amount of distress, she is complaining of sharp abdominal pain, abdomen is soft, however in the upper midabdomen there is tenderness to palpation. And CT of the abdomen and pelvis has already been ordered by the primary care service and is pending at this time. Otherwise she denies any worsening dyspnea, remains on 4 L of oxygen pulse ox of 95%, lung sounds are diminished at the bases, her chest x-ray from a couple days ago showed increasing left-sided pleural effusion, however clinically patient has been maintaining her O2 saturations, and denying any chest discomfort or worsening dyspnea. Her follow-up blood culture from 02/18/2021 has shown no growth, and that she is supposed to have a new permacath dialysis catheter inserted. Her heparin infusion has been on hold, today's labs have been reviewed, BUN 60, creatinine 6.18. There is a mild lower extremity edema. And patient continues on Unasyn for group D enterococcus bacteremia related to permacath line infectio n. On 02/23/2021 patient seen in follow-up on [facility] care unit, she had a right femoral temporary dialysis catheter inserted yesterday and she had hemodialysis today with removal of 1 L of fluid, she is lethargic on today's exam, she has been getting IV Dilaudid for abdominal pain. Computed tomography scan has not been completed yet, diminished soft, and apparently when the patient is awake s he does complaining of abdominal discomfort. He is on 4 L oxygen pulse ox is 93%, lung sounds are diminished at the bases, with dullness over left lower and mid lung. She's had no fever. Her follow-up blood cultures starting on 02/18/2021 have been negative. On 02/24/2021 patient seen in follow-up. Patient has been dialyzed again yesterday, and 1 L of fluid was removed. Follow-up chest x-ray yesterday showed worsening left sided pleural effusion, with near complete opacification of the left lung. Today's exam patient is more lethargic and per nursing reports she is more confused. She is resistant to care, she does not want to sit up in bed, she does not want to cooperate with care. [employer] who is her boyfriend. Lung sounds reveal very diminished breath sounds on the left, with dullness to percussion. She is currently on 4 L of oxygen the pulse ox of 96%, she is afebrile, denies any chest pain, she has a temporary hemodialysis catheter in place. Her follow-up blood cultures have been negative, she continues on antibiotics in the form of Unasyn for the bacteremia, and line infection. Had no fever or chills. On the 02/27/2021 patient seen in follow-up on selective care unit., She has a very lethargic on today's exam, she does withdraw from painful stimuli, and slightly moans with repeated verbal and tactile stimulation. Does not appear to be in any acute distress. She is currently on 2 L of oxygen, her FiO2 was earlier on 4 L of oxygen and her sat was 96% on the 4 L and subsequently FiO2 has been cut back, hemodynamically her blood pressure is 109/54, she is afebrile, does not appear to be in any respiratory distress, lung sounds are diminished, follow-up chest x-ray today is pending, patient is status post repeat left-sided thoracentesis on 02/25/2021 with removal of 1.4 L of turbid colored fluid. Follow-up chest x-ray today showed interval development of CHF with pulmonary vascular congestion, new small left pleural effusion with p rominent adjacent left basilar atelectasis and/or consolidation. Patient received a new hemodialysis catheter in the right femoral vein, and she is currently undergoing hemodialysis. No new labs. She seems to be generally swollen as well. She is lethargic, she remains on Unasyn per ID service re commendations for enterococcus bacteremia. Her follow-up blood cultures have been negative. Objective - Vital Signs Vital signs: Vital Signs Temp 97.7 F 02/27/21 12:07 Pulse 68 02/27/21 12:07 Resp 18 02/27/21 12:07 BP 109/54 02/27/21 12:07 Pulse Ox 96 02/27/21 08:31 Intake & Output 02/26/21 02/27/21 02/27/21 18:59 06:59 18:59 Intake Total 240 Output Total 1000 Balance -760 Weight 51 kg 51 kg Intake: Oral 240 Output: Hemodialysis 1000 Other: Voiding Method Incontinent Incontinent Incontinent # Voids 1 1 # Bowel Movements 1 - Exam GENERAL EXAM: Lethargic, 75-year-old white male, on 4 L of oxygen and pulse ox of 97-100% on today's exam HEAD: Normocephalic/atraumatic. EYES: Normal reaction of pupils, equal size. Conjunctiva pink, sclera white. NOSE: Clear with pink turbinates. THROAT: No erythema or exudates. NECK: No masses, no JVD, no thyroid enlargement, no adenopathy. CHEST: No chest wall deformity. Symmetrical expansion. LUNGS: Equal air entry with diminished breath sounds over the left lung CVS: Regular rate and rhythm, normal S1 and S2, no gallops, no murmurs, no rubs ABDOMEN: Soft, nontender. No hepatosplenomegaly, normal bowel sounds, slightly tender in the epigastric area EXTREMITIES: No clubbing, generalized edema, no cyanosis, 2+ pulses and upper and lower extremities. MUSCULOSKELETAL: Muscle strength and tone normal. SPINE: No scoliosis or deformity SKIN: No rashes CENTRAL NERVOUS SYSTEM: Lethargic No focal deficits, tone is normal in all 4 extremities. - Labs CBC & Chem 7: 02/23/21 20:13 02/22/21 06:18 Labs: Abnormal Lab Results - Last 24 Hours (Table) 02/26/21 02/26/21 02/27/21 Range/Units 16:53 20:26 06:19 POC Glucose (mg/dL) 215 H 242 H 195 H (75-99) mg/dL 02/27/21 02/27/21 Range/Units 11:40 11:41 POC Glucose (mg/dL) 264 H 237 H (75-99) mg/dL Assessment and Plan Plan: Assessment: #1. Pericardial effusion, status post pericardiocentesis would removal of 300 mL of bloody fluid, postoperative day number 6, pericardial drain has since been removed #2. Bilateral pleural effusions, left greater than right, status post left thoracentesis by interventional radiology today on 02/17/2021 and removal of 560 cc of pleural fluid which was sent for analysis, pleural fluid cultures showed no growth. Patient had a repeat left thoracentesis on 02/25/2021 with removal of 1.4 L of pleural fluid, this was not sent for analysis #3. Enterococcus faecalis bacteremia, was on Rocephin and vancomycin, currently just on Rocephin, ID service is following. This was likely related to line infection, permacath was removed from the right subclavian and catheter tip was also positive for group D enterococcus and coagulase-negative staph #4. Status post removal of right permacath, cath tip was sent for culture #5. Acute on chronic hypoxic respiratory failure secondary to sepsis, pericardial effusion, and bilateral pleural effusions #6. End-stage renal disease on hemodialysis #7. Chronic A. fib on Eliquis, Eliquis is currently on hold #8. Permanent pacemaker #9. COPD on home oxygen at 4 L #10. Diabetes mellitus type 2 #11. History of hypertension #12. History of hyperlipidemia #13. History of TIA in 2019 #14. Recent history of a fall Plan: Today chest x-ray has been reviewed Patient needs another hemodialysis treatments which she is receiving today Seems to be in no acute distress, however her level of consciousness is decreased Avoid narcotics, and sedatives Maintain aspiration precautions Follow-up cultures have been negative We'll continue to follow She is to be encouraged to deep breathe and cough and use incentive spirometer I performed a history & physical examination of the patient and discussed their management with my nurse practitioner, Mallorie Zavala. I reviewed the nurse practitioner's note and agree with the documented findings and plan of care. Lung sounds are positive for diminished breath sounds. The findings and the impression was discussed with the patient. I attest to the documentation by the nurse practitioner. Time with Patient: Less than 30
[2021-02-27] MEDS: ACETAMINOPHEN TAB 325 MG TAB PO PRN (16:23)
[2021-02-27 16:27] LABS: Glucose,Whole Blood 318 mg/dL (75-99)
[2021-02-27] MEDS ORDERED: BACLOFEN 10 MG TAB PO PRN (16:34)
--- NOTE | 2021-02-27 17:19 | P.PN ---
Progress Note - Text Progress Note Date: 02/27/21 Chief Complaint: Short of breath History of presenting complaint: This is a 75-year-old patient who follows with Dr. Jp Brooks. Patient is resident of [facility] from where she was transferred to [facility]. Chronic stable medical conditions include CHF, end-stage kidney disease on hemodialysis TTS, atrial fibrillation, permanent pacemaker, GERD. COPD. On 4 L of oxygen at baseline. Patient just recently was at [facility] following a head trauma. Laying down which she was carried out. At her baseline patient is AO 2. Patient was transferred to [facility] as patient had become a bit confused. Normally on 4 L of oxygen she is oxygen is a 90% but dropped down to 80s. Computed tomography scan of the head was unremarkable. Chest x-rays shown pleural effusion. Also patient was started on ciprofloxacin for recent UTI. I saw the patient in the ER this afternoon. She does not want to be here she says. Patient not a good historian. Nephrology and pulmonary were consulted. Patient is short of breath. Slight cough. Not sure about fever. Blood cultures positive for Enterococcus faecalis. Pericardiocentesis done with 3 units cc of bloody fluid removed. Pigtail catheter placed. Hemodialysis catheter removed because of infection. February 25: 1400 mL of turbid, colored left thoracentesis. February 26: right groin hemodialysis catheter placed. February 15: ICU: Yesterday evening during hemodialysis patient had an episode of hypotension bradycardia.A team was called out. There was a slight change in mental status. Recovered. Patient is moved to the ICU. Patient's significant other is in the room. Today. Patient on clear liquids. Ultrasound marking for the left pleural effusion has been done. Consultation to cardiology, neurology's been done. EEG ordered. Blood cultures growing gram-positive cocci in cultures. Given vancomycin February 16: 2-D echocardiogram which showed a large generalized pericardial effusion. Today Dr. Dubois from cardiothoracic surgery did pericardiocentesis: 300 mL of bloody fluid was obtained. Pigtail catheter was placed. D POA at the bedside. Patient tired. Has not eaten today. Hemodialysis today. Following that the hemodialysis catheter will be removed by Dr. Pearl. 5 60 mL of left- sided sanguinous fluid removed from the left side February 17: Patient more awake. Reclining in bed. Declining food. Significant other at the bedside. Less short of breath. Pigtail catheter to drain February 18: Sitting up in bed. Awake. Pigtail catheter removed from the pericardium. Had minimal drainage. Significant other at the bedside. Patient had about 50% of for breakfast. February 19: Propped up in bed, awake. Dialysis has been held pending new dialysis catheter placement. Eating fair amounts. Breathing stable. February 27: Oral intake variable. Able to answer questions. Significant other the bedside. I spent a lot of time discussing with him the different aspects of care. The fact that patient's prognosis is guarded. Did communicate with Dr. Helton from nephrology and Dr. Win from ID. Patient should be ready to be discharged shortly. Review of systems: Was done for constitutional, cardiovascular, GI, pulmonary. relevant finding as above Active Medications Acetaminophen (Acetaminophen Tab 325 Mg Tab) 650 mg PO Q6HR PRN PRN Reason: Mild Pain or Fever > 100.5 Last Admin: 02/27/21 16:23 Dose: 650 mg Documented by: Al Hydroxide/Mg Hydroxide (Mag Hydrox/Al Hydrox/Simeth 30 Ml Cup) 10 ml PO Q4H PRN PRN Reason: Indigestion Albuterol Sulfate (Albuterol Nebulized 2.5 Mg/3 Ml) 2.5 mg INHALATION RT-QID [facility] Last Admin: 02/27/21 15:20 Dose: Not Given Documented by: Ascorbic Acid (Ascorbic Acid 500 Mg Tab) 500 mg PO DAILY [facility] Last Admin: 02/27/21 09:00 Dose: 500 mg Documented by: Baclofen (Baclofen 10 Mg Tab) 5 mg PO TID PRN PRN Reason: Muscle Spasm Calcium Carbonate/Glycine (Calcium Carbonate 500 Mg Chewable) 1,000 mg PO Q4HR PRN PRN Reason: Dyspepsia Last Admin: 02/22/21 09:29 Dose: 1,000 mg Documented by: Cyanocobalamin (Cyanocobalamin 500 Mcg Tab) 1,000 mcg PO DAILY [facility] Last Admin: 02/27/21 09:00 Dose: 1,000 mcg Documented by: Ezetimibe (Ezetimibe 10 Mg Tab) 10 mg PO HS [facility] Last Admin: 02/26/21 20:59 Dose: 10 mg Documented by: Famotidine (Famotidine 20 Mg Tab) 20 mg PO DAILY [facility] Last Admin: 02/27/21 09:00 Dose: 20 mg Documented by: Fluconazole (Fluconazole 100 Mg Tab) 100 mg PO DAILY [facility] Last Admin: 02/27/21 09:00 Dose: 100 mg Documented by: Heparin Sodium (Porcine) (Heparin Sodium,Porcine/Pf 5,000 Unit/0.5 Ml Syringe) 5,000 unit SQ Q8HR [facility] Last Admin: 02/27/21 16:25 Dose: 5,000 unit Documented by: Ampicillin Sodium/Sulbactam (Sodium 3 gm/ Sodium Chloride) 100 mls @ 200 mls/hr IVPB DAILY [facility] Last Admin: 02/27/21 08:59 Dose: 200 mls/hr Documented by: Insulin Aspart (Insulin Aspart (Novolog) 100 Unit/Ml Vial) 0 unit SQ ACHS [facility]; Protocol Last Admin: 02/27/21 12:30 Dose: 100 unit Documented by: Lactulose (Lactulose 20 Gm/30 Ml Cup) 20 gm PO DAILY PRN PRN Reason: Constipation Magnesium Hydroxide (Magnesium Hydroxide 2,400 Mg/10 Ml Cup) 2,400 mg PO Q24H PRN PRN Reason: Constipation Midodrine (Midodrine 5 Mg Tab) 10 mg PO TuThSa@0900 [facility] Last Admin: 02/25/21 08:36 Dose: 10 mg Documented by: Multivit/Ca Carb/B Cmplx/FA/Prenat (Folic Acid-Vit B Complex-Vit C 1 Cap) 1 each PO DAILY [facility] Last Admin: 02/27/21 09:01 Dose: 1 each Documented by: Naloxone HCl (Naloxone 0.4 Mg/Ml 1 Ml Vial) 0.2 mg IV Q2M PRN PRN Reason: Opioid Reversal Last Admin: 02/23/21 19:05 Dose: 0.2 mg Documented by: Nystatin (Nystatin 100,000unit/Gm Cream 30 Gm Tube) 1 applic TOPICAL BID [facility]; Protocol Last Admin: 02/27/21 09:01 Dose: 1 applic Documented by: Ondansetron HCl (Ondansetron 4 Mg/2 Ml Vial) 4 mg IVP Q8HR PRN PRN Reason: Nausea And Vomiting Last Admin: 02/23/21 21:14 Dose: 4 mg Documented by: Senna (Sennosides 8.6 Mg Tab) 8.6 mg PO BID PRN PRN Reason: Constipation Sevelamer Carbonate (Sevelamer 800 Mg Tab) 800 mg PO ACHS [facility] Last Admin: 02/27/21 16:25 Dose: 800 mg Documented by: Sodium Bicarbonate (Sodium Bicarbonate Tab 650 Mg Tab) 650 mg PO TID [facility] Last Admin: 02/27/21 16:30 Dose: 650 mg Documented by: Past medical history to include: Atrial fibrillation, asthma, CHF, diabetes, DVT, GERD, hypertension, hyperlipidemia, osteomyelitis discitis, end-stage kidney disease with hemodialysis, TIA, permanent pacemaker, more disorder. Oxygen 4-4 L Social history: No history of smoking or alcohol. Currently at [facility] Family history: Rheumatic fever, [place] Physical examination: VITAL SIGNS: 97.6, 60, 18, 116/40, 97% on 2 L GENERAL:, Sitting up in bed, awake EYES: Pupils equal. Conjunctiva normal. HEENT: External appearance of nose and ears normal, oral cavity grossly normal. NECK: JVD unable to assess; masses not palpable. HEART: First and second heart sounds are normal; some edema. LUNGS:[ Respiratory rate increased, diminished breath sounds. ABDOMEN: Soft, nontender, liver spleen not palpable, no masses palpable. Right groin hemodialysis catheter PSYCH: Answering simple questions, anxious INVESTIGATIONS, reviewed in the clinical context: Blood culture [February 19]: Negative February 23: WBC 14.8 hemoglobin 10.5 February 19: WBC 12.4 hemoglobin 9.5 potassium 4.2 creatinine 5.33 February 18: Potassium 4.1 February 17: Potassium 4.4 EEG: No epilepsy activity noted. Encephalopathic findings February 16: INR 1.6 TSH 3.8 February 15: WBC 22.8 hemoglobin 10.3 potassium 3.9 BUN 37 creatinine 4.23 2-D echocardiogram: EF 50-55% large generalized pericardial effusion Blood culture [February 14]: Enterococcus faecalis Dialysis catheter tip culture: Group D enterococcus [Labs from [facility]] WBC 20.4 hemoglobin 10.2 platelets 453 sodium 133 potassium 5.5 BUN 56 crit and 6.7 ALT, AST both normal bilirubin 0.5 albumin 3.7 Troponin I 0.015 Computed tomography scan of the head reportedly negative EKG tracing personally reviewed by me-atrial flutter fibrillation with intraventricular block pattern Chest x-ray film personally reviewed by me-cardiomegaly, trachea pole to the right, pleural effusion Assessment and plan: -Acute hypoxic respiratory failure from large pleural effusion: Better Combination of inadequate hemodialysis and/or CHF. Patient underwent hemodialysis and left thoracentesis 2. -Chronic hypoxic respiratory failure on 4 L of oxygen -Bacteremia Enterococcus faecalis. From hemodialysis catheter. Vancomycin. Hemodialysis catheter removed. Repeat blood culture from February 19 negative -Large pericardial effusion: February 16: Pericardiocentesis of 300 mL of bloody fluid, Pigtail catheter-removed February 18. -End-stage kidney disease on hemodialysis, TTS Hemodialysis . -Large left pleural effusion, sanguinous Thoracentesis 560 mL removed on February 16. 1400 mL removed on February 25 -Persistent atrial flutter fibrillation Continue eliquis -Acute UTI with cystitis, IV ceftriaxone.-Completed -Diabetes mellitus type 2, chronically on insulin Follow Accu-Cheks. -Chronic hypotension Patient is on midodrine -Chronic medical debility -Acute delirium from hypoxia/hypoxic encephalopathy: Improved EEG-encephalopathy findings -Underlying cognitive impairment -Permanent pacemaker -Full code -Kamar JORDAN IV Unasyn. Other medications to continue. Care was discussed significantly with patient's significant other, Kamar. Patient be hemodialysis tomorrow. Hopefully discharge soon. Total time spent today about was 45 minutes with over 25 minutes of discussion
[2021-02-27 20:40] LABS: Glucose,Whole Blood 296 mg/dL (75-99)
[2021-02-27] MEDS: EZETIMIBE 10 MG TAB PO SCH (20:59)
[2021-02-27] MEDS: traMADol 50 MG TAB PO SCH (20:59)
[2021-02-27] MEDS: HYDROmorphone 0.5 MG/0.5 ML SYRINGE IVP PRN (21:16)
[2021-02-28] MEDS: HYDROmorphone 0.5 MG/0.5 ML SYRINGE IVP PRN (01:43)
[2021-02-28 06:05] LABS: Glucose,Whole Blood 197 mg/dL (75-99)
[2021-02-28] MEDS: INSULIN ASPART (NovoLOG) 100 UNIT/ML VIAL SQ SCH ×4 (06:33→21:37)
[2021-02-28] MEDS: SEVELAMER 800 MG TAB PO SCH ×4 (06:33→21:36)
[2021-02-28] MEDS: ALBUTEROL NEBULIZED 2.5 MG/3 ML INHALATION SCH ×4 (08:16→18:46)
[2021-02-28 08:28] LABS: Anisocytosis Slight; Basophils # (A) 0.1 k/uL (0-0.2); Basophils % (A) 1 %; Eosinophils # (A) 0.3 k/uL (0-0.7); Eosinophils % (A) 3 %; Hypochromasia Marked; Lymphocytes # (A) 2.5 k/uL (1.0-4.8); Lymphocytes % (A) 26 %; MCHC 31.6 g/dL (31.0-37.0); MCV 114.1 fL (80.0-100.0); Mean Platelet Volume 8.4; Monocytes # (A) 0.8 k/uL (0-1.0); Monocytes % (A) 8 %; Neutrophils # (A) 5.8 k/uL (1.3-7.7); Neutrophils % (A) 60 %; Platelet Count 212 k/uL (150-450); RBC 2.45 m/uL (3.80-5.40); RDW 16.1 % (11.5-15.5); WBC 9.6 k/uL (3.8-10.6)
[2021-02-28 08:32] LABS: Calcium 9.5 mg/dL (8.4-10.2); HGB 8.8 gm/dL (11.4-16.0); Macrocytosis Marked
--- NOTE | 2021-02-28 08:59 | PN ---
PROGRESS NOTE DATE OF SERVICE: 02/27/2021 REASON FOR FOLLOWUP: Enterococcus faecalis bacteremia secondary to pulmonary infection. INTERVAL HISTORY: The patient is afebrile. The patient is breathing comfortably on 2 L nasal cannula. Denies any chest pain. No cough. No abdominal pain, no diarrhea. PHYSICAL EXAMINATION: Blood pressure 115/64 with a pulse of 62, temperature 97.6. She is 97% on 2 L nasal cannula. General description is an elderly female lying in bed in no distress. Respiratory system: Unlabored breathing, decreased breath sounds at the base. Heart S1, S2. Regular rate and rhythm. Abdomen soft, no tenderness. LABS: No new labs have been obtained today. Blood culture repeat has been negative. DIAGNOSTIC IMPRESSION AND PLAN: Patient with Enterococcus faecalis bacteremia secondary to pulmonary infection. Repeat blood culture negative. On Unasyn, transition to IV vancomycin pharmacy to dose for 2 weeks after discharge and close outpatient followup. MMODL / IJN: [id number] /
--- NOTE | 2021-02-28 09:10 | P.PN ---
Subjective Patient is seen in follow-up for end-stage renal disease. She is maintained on hemodialysis on Saturday schedule. Blood culture were positive for enterococcus facialis. She is on IV antibiotics. Chest permacath has been removed. She now has a groin tunneled femoral catheter. Patient remains confused. Tolerating dialysis well. Vital signs are stable. General: The patient appeared well nourished and normally developed. HEENT: Head exam is unremarkable. On nasal cannula. LUNGS: Breath sounds decreased. HEART: Rate and Rhythm are regular. ABDOMEN: Soft, no distention. EXTREMITITES: No edema. Objective - Vital Signs Vital signs: Vital Signs Temp 97.4 F L 02/28/21 08:00 Pulse 60 02/28/21 08:00 Resp 16 02/28/21 08:00 BP 146/62 02/28/21 08:00 Pulse Ox 99 02/28/21 08:00 Intake & Output 02/27/21 02/28/21 02/28/21 18:59 06:59 18:59 Intake Total 600 Output Total 1000 0 Balance -400 0 Weight 51 kg Intake: Oral 600 Output: Urine 0 0 Stool 0 Hemodialysis 1000 Other: Voiding Method Incontinent Incontinent # Voids 0 0 # Bowel Movements 0 - Labs CBC & Chem 7: 02/28/21 07:45 02/28/21 07:45 Labs: Abnormal Lab Results - Last 24 Hours (Table) 02/27/21 02/27/21 02/27/21 Range/Units 11:40 11:41 16:26 RBC (3.80-5.40) m/uL Hgb (11.4-16.0) gm/dL Hct (34.0-46.0) % MCV (80.0-100.0) fL MCH (25.0-35.0) pg RDW (11.5-15.5) % Macrocytosis Sodium (137-145) mmol/L Chloride (98-107) mmol/L BUN (7-17) mg/dL Creatinine (0.52-1.04) mg/dL Glucose (74-99) mg/dL POC Glucose (mg/dL) 264 H 237 H 318 H (75-99) mg/dL 02/27/21 02/28/21 02/28/21 Range/Units 20:38 06:03 07:45 RBC 2.45 L (3.80-5.40) m/uL Hgb 8.8 L D (11.4-16.0) gm/dL Hct 28.0 L (34.0-46.0) % MCV 114.1 H (80.0-100.0) fL MCH 36.0 H (25.0-35.0) pg RDW 16.1 H (11.5-15.5) % Macrocytosis Marked A Sodium (137-145) mmol/L Chloride (98-107) mmol/L BUN (7-17) mg/dL Creatinine (0.52-1.04) mg/dL Glucose (74-99) mg/dL POC Glucose (mg/dL) 296 H 197 H (75-99) mg/dL 02/28/21 Range/Units 07:45 RBC (3.80-5.40) m/uL Hgb (11.4-16.0) gm/dL Hct (34.0-46.0) % MCV (80.0-100.0) fL MCH (25.0-35.0) pg RDW (11.5-15.5) % Macrocytosis Sodium 130 L (137-145) mmol/L Chloride 97 L (98-107) mmol/L BUN 29 H (7-17) mg/dL Creatinine 3.61 H (0.52-1.04) mg/dL Glucose 169 H (74-99) mg/dL POC Glucose (mg/dL) (75-99) mg/dL Assessment and Plan Plan: Assessment: 1. End-stage renal disease maintained on hemodialysis on Saturday schedule via a tunneled right femoral catheter that was placed 02/26/2021. 2. Altered mental status from sepsis. Patient also has baseline dementia. 3. Enterococcus bacteremia with source being permacath - discontinued February 16. 4. Hyperkalemia secondary to chronic kidney disease and metabolic acidosis. Resolved. 5. Anemia of chronic kidney disease. Hemoglobin stable. 6. Chronic kidney disease mineral bone disease maintained on Renvela. 7. Pericardial effusion status post pericardiocentesis. 8. Metabolic acidosis secondary to chronic kidney disease maintained on oral bicarb. 9. Hyponatremia secondary to chronic kidney disease. Plan: Currently seen was undergoing hemodialysis. Next treatment on . Overall prognosis guarded.
[2021-02-28] MEDS: MIDODRINE 5 MG TAB PO SCH (09:54)
--- NOTE | 2021-02-28 11:27 | P.PN ---
Subjective Progress Note Date: 02/28/21 Principal diagnosis: Altered mental status This is a 75-year-old female patient who follows with Dr. Brooks is her primary care provider. She has a history of end-stage renal disease receiving hemodialysis on Saturday, chronic hypoxic respiratory failure on oxygen at 4 L, atrial fibrillation/flutter status post permanent pacemaker insertion, diabetes mellitus type 2, chronic hypotension, underlying cognitive impairment. Earlier this month she had sustained a fall and was in [facility] following head trauma. She had injury to her head and left wrist at that time. She resides in [facility]. She was brought here from [facility] after being taken there for altered mental status. Yesterday during dialysis she was quite hypotensive and bradycardic and dialysis was stopped. An A team was called and she was transferred to the ICU. We are seeing her today in consultation. She is awake, alert and arousable. She sta marleen she was in [place] right now. Computed tomography scan of the head from [place] was reported as unremarkable. She was found to have significant left- sided pleural effusion. She is currently on 5 L nasal cannula. 0.9 normal saline at [address] angiogram of the chest ruled out pulmonary embolism. There is bilateral pleural effusions much larger on the left. White count 20.8. Hemoglobin 10.3. Sodium 143. Potassium 3.9. Creatinine 4.23. The patient is seen today 02/16/2021 in follow-up in the intensive care unit. She is currently sitting up in bed. Awake and alert in no acute distress. She is on 3 L nasal cannula maintaining good O2 saturations in the 90s. Blood cu lture was positive for Enterococcus faecalis. She is on vancomycin and ceftriaxone. No IV fluids currently. She remains on hemodialysis Saturday schedule. Concern regarding possible infection from the catheter from 2019. Plan is to remove the catheter after dialysis today. On 02/17/2021 patient seen in follow-up on selective care unit, patient is status post pericardiocentesis with placement of a pigtail drain, postoperative day #2, and bilateral pleural effusions, left greater than right, status post left thoracentesis by interventional radiology with removal of 560 mL of pleural fluid. Follow-up chest x-ray after the procedure showed improvement in aeration of the left lung. Patient is currently on 4 L of oxygen, and his pulse ox is 97-100%, hemodynamically stable, he is afebrile. Patient's blood culture was positive for Enterococcus faecalis patient is on Rocephin for antibiotic coverage, there was a concern for possibly infected permacath which was removed, and catheter tip cultures have been ordered. Patient was initially covered with vancomycin, ID service is following and current abiotic coverage is just with Rocephin. he is breathing comfortably, he is more awake and alert on today's exam, no chest pain, no abdominal pain, no nausea or vomiting. No diarrhea. On 02/18/2021 patient seen in follow-up on selective care unit. Patient is awake and alert, in no acute distress, she is on 3 L of oxygen, with a pulse ox of 97%. No worsening dyspnea at rest, she does have exertional dyspnea. No fever or chills. Patient is incontinent of urine, she does avoid, it urine output is difficult to estimate as the patient is incontinent. She remains on antibiotics in the form of ceftriaxone and vancomycin for enterococcus bacteremia, her follow-up blood cultures have shown no growth thus far, last set was sent on 02/16/2021, her permacath catheter was removed by vascular surgery and catheter tip has been sent for culture, reported on the cultures thus far, patient is status post left-sided thoracentesis, so far pleural fluid cultures remain negative. Patient is supposed to have a new hemodialysis catheter inserted today by vascular surgery. On 02/20/2021 patient seen in follow-up on selective care unit. She is currently working with physical therapy, she sitting up on the edge of the bed. She is breathing comfortably, denies any dyspnea, no cough, no chest discomfort. Lung sounds reveal diminished breath sounds with dullness at the left base, and left pleural effusion is suspected, we will obtain follow-up chest x-ray later on today, however in terms of oxygenation it has remained stable, she is currently still on 3 L a pulse ox of 100%. The labs have been reviewed but cell count is stable, at 12.1, hemoglobin is 9.4, INR is 1.2, sodium is 134, renal profile slightly worse, with BUN of 51, creatinine is 5.51. No Significant edema involving lower extremities. Remains on antibiotics in the form of ampicillin for enterococcus bacteremia, her right subclavian permacath has been removed, and catheter tip also shows quite is negative staph and group D enterococcus. Follow blood cultures have shown no growth at the 24-hour roney. Pleural fluid culture is still pending, preliminary Gram stain showed no organisms. P ericardial catheter has been removed a few days ago. Blood pressure has been stable On 02/21/2021 patient seen in follow-up on selective care unit, she is awake and alert, slightly irritable, but denies any breathing issues, no shortness of breath, only occasional cough, no phlegm production, no complaints of chest pain, she remains on the same 3 L of supplemental oxygen that she was on for last few days. Her pulse ox is 93-97%, she's been afebrile, hemodynamically she has been stable, yesterday's follow-up chest x-ray showed recurrence of a moderately sized left-sided pleural effusion. Patient had her right subclavian permacath removed, and the catheter tip was showing evidence of D enterococcus, follow-up blood cultures have been sent, and have shown no growth thus far, final cultures are still pending, no fever or chills overnight. Patient is incontinent of small amount of urine, no worsening dyspnea, no worsening edema in bilateral lower extremities. No nausea no vomiting no diarrhea. She remains on antibiotics in the form of Unasyn., On 02/22/2021 patient seen in follow-up on selective care unit, she seems to be in moderate to severe amount of distress, she is complaining of sharp abdominal pain, abdomen is soft, however in the upper midabdomen there is tenderness to palpation. And CT of the abdomen and pelvis has already been ordered by the primary care service and is pending at this time. Otherwise she denies any worsening dyspnea, remains on 4 L of oxygen pulse ox of 95%, lung sounds are diminished at the bases, her chest x-ray from a couple days ago showed increasing left-sided pleural effusion, however clinically patient has been maintaining her O2 saturations, and denying any chest discomfort or worsening dyspnea. Her follow-up blood culture from 02/18/2021 has shown no growth, and that she is supposed to have a new permacath dialysis catheter inserted. Her heparin infusion has been on hold, today's labs have been reviewed, BUN 60, creatinine 6.18. There is a mild lower extremity edema. And patient continues on Unasyn for group D enterococcus bacteremia related to permacath line infection. On 02/23/2021 patient seen in follow-up on selective care unit, she had a right femoral temporary dialysis catheter inserted yesterday and she had hemodialysis today with removal of 1 L of fluid, she is lethargic on today's exam, she has been getting IV Dilaudid for abdominal pain. Computed tomography scan has not been completed yet, diminished soft, and apparently when the patient is awake she does complaining of abdominal discomfort. He is on 4 L oxygen pulse ox is 93%, lung sounds are diminished at the bases, with dullness over left lower and mid lung. She's had no fever. Her follow-up blood cultures starting on 02/18/2021 have been negative. On 02/24/2021 patient seen in follow-up. Patient has been dialyzed again yesterday, and 1 L of fluid was removed. Follow-up chest x-ray yesterday showed worsening left sided pleural effusion, with near complete opacification of the left lung. Today's exam patient is more lethargic and per nursing reports she is more confused. She is resistant to care, she does not want to sit up in bed, she does not want to cooperate with care. [employer] who is her boyfriend. Lung sounds reveal very diminished breath sounds on the left, with dullness to percussion. She is currently on 4 L of oxygen the pulse ox of 96%, she is afebrile, denies any chest pain, she has a temporary hemodialysis catheter in place. Her follow-up blood cultures have been negative, she continues on antibiotics in the form of Unasyn for the bacteremia, and line infection. Had no fever or chills. On the 02/27/2021 patient seen in follow-up on selective care unit., She has a very lethargic on today's exam, she does withdraw from painful stimuli, and slightly moans with repeated verbal and tactile stimulation. Does not appear to be in any acute distress. She is currently on 2 L of oxygen, her FiO2 was earlier on 4 L of oxygen and her sat was 96% on the 4 L and subsequently FiO2 has been cut back, hemodynamically her blood pressure is 109/54, she is afebrile, does not appear to be in any respiratory distress, lung sounds are diminished, follow-up chest x-ray today is pending, patient is status post repeat left-sided thoracentesis on 02/25/2021 with removal of 1.4 L of turbid colored fluid. Follow-up chest x-ray today showed interval development of CHF with pulmonary vascular congestion, new small left pleural effusion with prominent adjacent left basilar atelectasis and/or consolidation. Patient received a new hemodialysis catheter in the right femoral vein, and she is cu rrently undergoing hemodialysis. No new labs. She seems to be generally swollen as well. She is lethargic, she remains on Unasyn per ID service recommendations for enterococcus bacteremia. Her follow-up blood cultures have been negative. The patient is seen today 02/28/2021 in follow-up on the selective care unit. She is currently resting in bed. She receiving hemodialysis. She is awake and alert. Maintaining O2 saturations up to 99% on 2 L/m per nasal cannula. Afebrile. Hemodynamically stable. White count 9.6. Hemoglobin 8.8. Platelet count 212. Sodium 130. Potassium 5.0. Creatinine 3.61. Glucose 169. Follow- up blood cultures reveal no growth. Pleural fluid cultures reveal no growth. She she remains on Unasyn. Objective - Vital Signs Vital signs: Vital Signs Temp 97.4 F L 02/28/21 08:00 Pulse 60 02/28/21 08:00 Resp 16 02/28/21 08:00 BP 146/62 02/28/21 08:00 Pulse Ox 99 02/28/21 08:00 Intake & Output 02/27/21 02/28/21 02/28/21 18:59 06:59 18:59 Intake Total 600 0 Output Total 1000 0 Balance -400 0 0 Weight 51 kg 51.1 kg Intake: Oral 600 0 Output: Urine 0 0 Stool 0 Hemodialysis 1000 Other: Voiding Method Incontinent Incontinent Incontinent # Voids 0 0 # Bowel Movements 0 - Exam GENERAL EXAM: Alert, oriented times one, 75-year-old female patient on 2 L nasal cannula, comfortable in no apparent distress. HEAD: Trauma to fore head with Steri-Strips in place EYES: Normal reaction of pupils, equal size. NOSE: Clear with pink turbinates. THROAT: No erythema or exudates. NECK: No masses, no JVD. CHEST: No chest wall deformity. LUNGS: Bibasilar crackles left greater than right, diminished. CVS: S1 and S2 normal with no audible murmur, irregular rhythm. ABDOMEN: No hepatosplenomegaly, normal bowel sounds, no guarding or rigidity. SPINE: No scoliosis or deformity SKIN: No rashes CENTRAL NERVOUS SYSTEM: No focal deficits, tone is normal in all 4 extremities. EXTREMITIES: Left wrist in immobilizer. There is 1+ peripheral edema. No clubbing, no cyanosis. Peripheral pulses are intact. - Labs CBC & Chem 7: 02/28/21 07:45 02/28/21 07:45 Labs: Abnormal Lab Results - Last 24 Hours (Table) 02/27/21 02/27/21 02/27/21 Range/Units 11:40 11:41 16:26 RBC (3.80-5.40) m/uL Hgb (11.4-16.0) gm/dL Hct (34.0-46.0) % MCV (80.0-100.0) fL MCH (25.0-35.0) pg RDW (11.5-15.5) % Macrocytosis Sodium (137-145) mmol/L Chloride (98-107) mmol/L BUN (7-17) mg/dL Creatinine (0.52-1.04) mg/dL Glucose (74-99) mg/dL POC Glucose (mg/dL) 264 H 237 H 318 H (75-99) mg/dL 02/27/21 02/28/21 02/28/21 Range/Units 20:38 06:03 07:45 RBC 2.45 L (3.80-5.40) m/uL Hgb 8.8 L D (11.4-16.0) gm/dL Hct 28.0 L (34.0-46.0) % MCV 114.1 H (80.0-100.0) fL MCH 36.0 H (25.0-35.0) pg RDW 16.1 H (11.5-15.5) % Macrocytosis Marked A Sodium (137-145) mmol/L Chloride (98-107) mmol/L BUN (7-17) mg/dL Creatinine (0.52-1.04) mg/dL Glucose (74-99) mg/dL POC Glucose (mg/dL) 296 H 197 H (75-99) mg/dL 02/28/21 Range/Units 07:45 RBC (3.80-5.40) m/uL Hgb (11.4-16.0) gm/dL Hct (34.0-46.0) % MCV (80.0-100.0) fL MCH (25.0-35.0) pg RDW (11.5-15.5) % Macrocytosis Sodium 130 L (137-145) mmol/L Chloride 97 L (98-107) mmol/L BUN 29 H (7-17) mg/dL Creatinine 3.61 H (0.52-1.04) mg/dL Glucose 169 H (74-99) mg/dL POC Glucose (mg/dL) (75-99) mg/dL Assessment and Plan Assessment: 1 Acute hypotension and bradycardia during dialysis requiring transfer to ICU, recovered. Blood cultures positive for Enterococcus faecalis. Currently on Unasyn 2 Acute on chronic hypoxemic respiratory failure secondary to large left pleural effusion, status post thoracentesis on 02/17/2021. 3 Large left pleural effusion and fluid volume overload 4 End-stage renal disease receiving hemodialysis on Saturday 5 Diabetes mellitus 6 History of chronic hypotension, on midodrine 7 Underlying cognitive impairment 8 Atrial fibrillation/flutter, anticoagulated with Eliquis, pacemaker implantation 9 Poor overall functional performance based on the above-mentioned multiple comorbidities Plan: The patient was seen and evaluated by Dr. Shah Follow-up blood cultures reveal no growth. Pleural fluid revealed no growth. CODE STATUS to be addressed by primary service We will continue to follow I, the cosigning physician, performed a history & physical examination of the patient. Lungs sounds with crackles in the posterior bases left greater than right, diminished. Maintaining good O2 saturations in the 90s on 2 L/m per nasal cannula. I discussed the assessment and plan of care with my nurse practitioner, Tiffani Sibley. I attest to the above note as dictated by her.
[2021-02-28] MEDS: HEPARIN SODIUM,PORCINE/PF 5,000 UNIT/0.5 ML SYRINGE SQ SCH ×3 (11:35→23:43)
[2021-02-28] MEDS: CYANOCOBALAMIN 500 MCG TAB PO SCH (11:36)
[2021-02-28] MEDS: ASCORBIC ACID 500 MG TAB PO SCH (11:37)
[2021-02-28] MEDS: FLUCONAZOLE 100 MG TAB PO SCH (11:37)
[2021-02-28] MEDS: AMPICILLIN-SULBACTAM 3 GM in SODIUM CHLORIDE 0.9% 100 ML IVPB SCH (11:37)
[2021-02-28] MEDS: FOLIC ACID-VIT B COMPLEX-VIT C 1 CAP PO SCH (11:37)
[2021-02-28] MEDS: FAMOTIDINE 20 MG TAB PO SCH (11:37)
[2021-02-28] MEDS: SODIUM BICARBONATE TAB 650 MG TAB PO SCH ×3 (11:37→21:36)
[2021-02-28] MEDS: NYSTATIN 100,000UNIT/GM CREAM 30 GM TUBE TOPICAL SCH ×2 (11:38→21:46)
[2021-02-28 11:57] LABS: Glucose,Whole Blood 131 mg/dL (75-99)
[2021-02-28] MEDS ORDERED: VANCOMYCIN IV PER PHARMACY 1 EACH MISC MISCELLANE PRN (12:00)
[2021-02-28] MEDS ORDERED: VANCOMYCIN 1,000 MG in SODIUM CHLORIDE 0.9% 250 ML IVPB STA (12:04)
[2021-02-28] MEDS: traMADol 50 MG TAB PO SCH ×5 (12:11→21:36)
--- NOTE | 2021-02-28 12:58 | PN ---
PROGRESS NOTE DATE OF SERVICE: 02/28/2021 REASON FOR FOLLOW UP: Enterococcus faecalis bacteremia secondary to PermCath infection. INTERVAL HISTORY: The patient is afebrile. The patient is breathing comfortably. The patient keeps on saying Help me, Help me, but does not specifically state what she needs help with. She will not answer. Apparently the patient has been doing that since yesterday after Dilaudid has been discontinued. The patient is currently on room air and no distress has been noticed. EXAMINATION: MMODL / IJN: [id number] /
--- NOTE | 2021-02-28 13:02 | PN ---
PROGRESS NOTE DATE OF SERVICE: 02/28/2021 REASON FOR FOLLOWUP: Enterococcus faecalis bacteremia secondary to PermCath infection. INTERVAL HISTORY: The patient is afebrile. The patient is currently 99% on 2 L nasal cannula. The patient keeps on repeating Help me, Help me, but when asked specifically what she needs help with, she would not say what she needs help with. Per the nurse, she has been doing that since this morning. The patient was unable to provide any history. No vomiting, diarrhea has been reported. PHYSICAL EXAMINATION: Blood pressure 140/62 with a pulse of 80, temperature 98.4. She is 99% on 2 L nasal cannula. General description is an elderly female lying in bed in no distress. Respiratory system: Unlabored breathing, decreased breath sounds in the base. No wheeze. Heart S1, S2. Regular rate and rhythm. Abdomen soft, no tenderness. LABS: Hemoglobin 8.8, white count 9.2, BUN of 29, creatinine 3.61. Blood culture repeat has been negative. DIAGNOSTIC IMPRESSION AND PLAN: Patient with Enterococcus faecalis bacteremia secondary to PermCath infection. Blood culture repeat has been negative. PermCath was discontinued. Antibiotic was switched to vancomycin which can be done through dialysis so we can avoid a PICC line placement. Plan is for 2 more weeks of IV antibiotics. Continue supportive care. MMODL / IJN: [id number] /
[2021-02-28 16:41] LABS: Glucose,Whole Blood 173 mg/dL (75-99)
--- NOTE | 2021-02-28 20:10 | P.PN ---
Progress Note - Text Progress Note Date: 02/28/21 Chief Complaint: Short of breath History of presenting complaint: This is a 75-year-old patient who follows with Dr. Jp Brooks. Patient is resident of [facility] from where she was transferred to [facility]. Chronic stable medical conditions include CHF, end-stage kidney disease on hemodialysis TTS, atrial fibrillation, permanent pacemaker, GERD. COPD. On 4 L of oxygen at baseline. Patient just recently was at [facility] following a head trauma. Laying down which she was carried out. At her baseline patient is AO 2. Patient was transferred to [facility] as patient had become a bit confused. Normally on 4 L of oxygen she is oxygen is a 90% but dropped down to 80s. Computed tomography scan of the head was unremarkable. Chest x-rays shown pleural effusion. Also patient was started on ciprofloxacin for recent UTI. I saw the patient in the ER this afternoon. She does not want to be here she says. Patient not a good historian. Nephrology and pulmonary were consulted. Patient is short of breath. Slight cough. Not sure about fever. Blood cultures positive for Enterococcus faecalis. Pericardiocentesis done with 3 units cc of bloody fluid removed. Pigtail catheter placed. Hemodialysis catheter removed because of infection. February 25: 1400 mL of turbid, colored left thoracentesis. February 26: right groin hemodialysis catheter placed. February 15: ICU: Yesterday evening during hemodialysis patient had an episode of hypotension bradycardia.A team was called out. There was a slight change in mental status. Recovered. Patient is moved to the ICU. Patient's significant other is in the room. Today. Patient on clear liquids. Ultrasound marking for the left pleural effusion has been done. Consultation to cardiology, neurology's been done. EEG ordered. Blood cultures growing gram-positive cocci in cultures. Given vancomycin February 16: 2-D echocardiogram which showed a large generalized pericardial effusion. Today Dr. Dubois from cardiothoracic surgery did pericardiocentesis: 300 mL of bloody fluid was obtained. Pigtail catheter was placed. D POA at the bedside. Patient tired. Has not eaten today. Hemodialysis today. Following that the hemodialysis catheter will be removed by Dr. Pearl. 5 60 mL of left- sided sanguinous fluid removed from the left side February 17: Patient more awake. Reclining in bed. Declining food. Significant other at the bedside. Less short of breath. Pigtail catheter to drain February 18: Sitting up in bed. Awake. Pigtail catheter removed from the pericardium. Had minimal drainage. Significant other at the bedside. Patient had about 50% of for breakfast. February 19: Propped up in bed, awake. Dialysis has been held pending new dialysis catheter placement. Eating fair amounts. Breathing stable. February 27: Oral intake variable. Able to answer questions. Significant other the bedside. I spent a lot of time discussing with him the different aspects of care. The fact that patient's prognosis is guarded. Did communicate with Dr. Helton from nephrology and Dr. Win from ID. Patient should be ready to be discharged shortly. February 28: Oral intake somewhat limited. Patient's DPO Kamar was concerned about having patient leg pain. Patient has no complains of leg pains. Physical examination did not show any findings and explain any obvious pain. When patient's os how she drink she says okay. She sometimes feels a help me help me . But otherwise appears to be comfortable. A lengthy meeting was held with the patient, social media intern Donald, patient advocate Gorge and myself. They don't Kamar decided to make the patient DO NOT RESUSCITATE Review of systems: Attempted for constitutional, cardiovascular, GI, pulmonary. relevant finding as above Active Medications Acetaminophen (Acetaminophen Tab 325 Mg Tab) 650 mg PO Q6HR PRN PRN Reason: Mild Pain or Fever > 100.5 Last Admin: 02/27/21 16:23 Dose: 650 mg Documented by: Al Hydroxide/Mg Hydroxide (Mag Hydrox/Al Hydrox/Simeth 30 Ml Cup) 10 ml PO Q4H PRN PRN Reason: Indigestion Albuterol Sulfate (Albuterol Nebulized 2.5 Mg/3 Ml) 2.5 mg INHALATION RT-QID [facility] Last Admin: 02/28/21 18:46 Dose: Not Given Documented by: Ascorbic Acid (Ascorbic Acid 500 Mg Tab) 500 mg PO DAILY [facility] Last Admin: 02/28/21 11:37 Dose: 500 mg Documented by: Calcium Carbonate/Glycine (Calcium Carbonate 500 Mg Chewable) 1,000 mg PO Q4HR PRN PRN Reason: Dyspepsia Last Admin: 02/22/21 09:29 Dose: 1,000 mg Documented by: Cyanocobalamin (Cyanocobalamin 500 Mcg Tab) 1,000 mcg PO DAILY [facility] Last Admin: 02/28/21 11:36 Dose: 1,000 mcg Documented by: Ezetimibe (Ezetimibe 10 Mg Tab) 10 mg PO HS [facility] Last Admin: 02/27/21 20:59 Dose: 10 mg Documented by: Famotidine (Famotidine 20 Mg Tab) 20 mg PO DAILY [facility] Last Admin: 02/28/21 11:37 Dose: 20 mg Documented by: Fluconazole (Fluconazole 100 Mg Tab) 100 mg PO DAILY [facility] Last Admin: 02/28/21 11:37 Dose: 100 mg Documented by: Heparin Sodium (Porcine) (Heparin Sodium,Porcine/Pf 5,000 Unit/0.5 Ml Syringe) 5,000 unit SQ Q8HR [facility] Last Admin: 02/28/21 16:33 Dose: 5,000 unit Documented by: Hydromorphone HCl (Hydromorphone 0.5 Mg/0.5 Ml Syringe) 0.5 mg IVP Q4HR PRN PRN Reason: Pain Last Admin: 02/28/21 01:43 Dose: 0.5 mg Documented by: Insulin Aspart (Insulin Aspart (Novolog) 100 Unit/Ml Vial) 0 unit SQ [facility]; Protocol Last Admin: 02/28/21 16:44 Dose: 2 unit Documented by: Lactulose (Lactulose 20 Gm/30 Ml Cup) 20 gm PO DAILY PRN PRN Reason: Constipation Magnesium Hydroxide (Magnesium Hydroxide 2,400 Mg/10 Ml Cup) 2,400 mg PO Q24H PRN PRN Reason: Constipation Midodrine (Midodrine 5 Mg Tab) 10 mg PO TuThSa@0900 [facility] Last Admin: 02/28/21 09:54 Dose: 10 mg Documented by: Miscellaneous Information (Vancomycin Iv Per Pharmacy 1 Each Misc) 1 each MISCELLANE DIRECTED PRN; Protocol PRN Reason: Per Protocol Multivit/Ca Carb/B Cmplx/FA/Prenat (Folic Acid-Vit B Complex-Vit C 1 Cap) 1 each PO DAILY [facility] Last Admin: 02/28/21 11:37 Dose: 1 each Documented by: Naloxone HCl (Naloxone 0.4 Mg/Ml 1 Ml Vial) 0.2 mg IV Q2M PRN PRN Reason: Opioid Reversal Last Admin: 02/23/21 19:05 Dose: 0.2 mg Documented by: Nystatin (Nystatin 100,000unit/Gm Cream 30 Gm Tube) 1 applic TOPICAL BID [facility]; Protocol Last Admin: 02/28/21 11:38 Dose: 1 applic Documented by: Ondansetron HCl (Ondansetron 4 Mg/2 Ml Vial) 4 mg IVP Q8HR PRN PRN Reason: Nausea And Vomiting Last Admin: 02/23/21 21:14 Dose: 4 mg Documented by: Senna (Sennosides 8.6 Mg Tab) 8.6 mg PO BID PRN PRN Reason: Constipation Sevelamer Carbonate (Sevelamer 800 Mg Tab) 800 mg PO ACHS [facility] Last Admin: 02/28/21 16:33 Dose: 800 mg Documented by: Sodium Bicarbonate (Sodium Bicarbonate Tab 650 Mg Tab) 650 mg PO TID [facility] Last Admin: 02/28/21 16:33 Dose: 650 mg Documented by: Tramadol HCl (Tramadol 50 Mg Tab) 25 mg PO QID [facility] Last Admin: 02/28/21 19:00 Dose: 25 mg Documented by: Past medical history to include: Atrial fibrillation, asthma, CHF, diabetes, DVT, GERD, hypertension, hy perlipidemia, osteomyelitis discitis, end-stage kidney disease with hemodialysis, TIA, permanent pacemaker, more disorder. Oxygen 4-4 L Social history: No history of smoking or alcohol. Currently at [facility] Family history: Rheumatic fever, [place] Physical examination: VITAL SIGNS: 97.4, 60, 18, 125/57, 99% on 2 L GENERAL:, Laying in bed, awake tired EYES: Pupils equal. Conjunctiva normal. HEENT: External appearance of nose and ears normal, oral cavity grossly normal. NECK: JVD unable to assess; masses not palpable. HEART: First and second heart sounds are normal; some edema. LUNGS:[ Respiratory rate normal, diminished breath sounds. ABDOMEN: Soft, nontender, liver spleen not palpable, no masses palpable. Right groin hemodialysis catheter EXTREMITY: Other than arthritis no evidence of any significant abnormality. PSYCH: Answering simple questions, INVESTIGATIONS, reviewed in the clinical context: February 28: WBC 9.6 hemoglobin 8.8 sodium 1:30 potassium 5 BUN 29 creatinine 3.61 Blood culture [February 19]: Negative February 23: WBC 14.8 hemoglobin 10.5 February 19: WBC 12.4 hemoglobin 9.5 potassium 4.2 creatinine 5.33 February 18: Potassium 4.1 February 17: Potassium 4.4 EEG: No epilepsy activity noted. Encephalopathic findings February 16: INR 1.6 TSH 3.8 February 15: WBC 22.8 hemoglobin 10.3 potassium 3.9 BUN 37 creatinine 4.23 2-D echocardiogram: EF 50-55% large generalized pericardial effusion Blood culture [February 14]: Enterococcus faecalis Dialysis catheter tip culture: Group D enterococcus [Labs from [facility]] WBC 20.4 hemoglobin 10.2 platelets 453 sodium 133 potassium 5.5 BUN 56 crit and 6.7 ALT, AST both normal bilirubin 0.5 albumin 3.7 Troponin I 0.015 Computed tomography scan of the head reportedly negative EKG tracing personally reviewed by me-atrial flutter fibrillation with intraventricular block pattern Chest x-ray film personally reviewed by me-cardiomegaly, trachea pole to the right, pleural effusion Assessment and plan: -Acute hypoxic respiratory failure from large pleural effusion: Better Combination of inadequate hemodialysis and/or CHF. Patient underwent hemodialysis and left thoracentesis 2. -Chronic hypoxic respiratory failure on 4 L of oxygen -Bacteremia Enterococcus faecalis. From hemodialysis catheter. Vancomycin. Hemodialysis catheter removed. Repeat blood culture from February 19 negative -Large pericardial effusion: February 16: Pericardiocentesis of 300 mL of bloody fluid, Pigtail catheter-removed February 18. -End-stage kidney disease on hemodialysis, TTS Hemodialysis . -Large left pleural effusion, sanguinous Thoracentesis 560 mL removed on February 16. 1400 mL removed on February 25 -Persistent atrial flutter fibrillation Continue eliquis -Acute UTI with cystitis, IV ceftriaxone.-Completed -Diabetes mellitus type 2, chronically on insulin Follow Accu-Cheks. -Chronic hypotension Patient is on midodrine -Chronic medical debility -Acute delirium from hypoxia/hypoxic encephalopathy: Improved EEG-encephalopathy findings -Underlying cognitive impairment -Permanent pacemaker -DO NOT RESUSCITATE -Kamar JORDAN Spoke with Dr. Shah from pulmonary. He felt patient would be appropriate for hospice./DO NOT RESUSCITATE. Spoke to the nurse and encourage oral intake. Advanced care planning: Had a meeting with patient's advocate Kamar, social media intern Donald, patient advocate Gorge. Patient's clinical condition was discussed in detail. Also other physicians opinion was reminded. Prognosis guarded. Patient is not able to participate in any activity. It was reemphasized that patient does not have any source of leg pain and is not complaining of the same. Code status was discussed at length. Kamar decided to make the patient DO NOT RESUSCITATE. Plan will be to send the patient to ECF. Long-term care will be an option and depending on clinical course hospice may be determined. 30 minutes was spent with ACP
[2021-02-28 20:27] LABS: Glucose,Whole Blood 310 mg/dL (75-99)
[2021-02-28] MEDS: EZETIMIBE 10 MG TAB PO SCH (21:36)
[2021-03-01] MEDS: HYDROmorphone 0.5 MG/0.5 ML SYRINGE IVP PRN ×2 (01:17→23:52)
[2021-03-01 06:14] LABS: Glucose,Whole Blood 182 mg/dL (75-99)
[2021-03-01] MEDS: SEVELAMER 800 MG TAB PO SCH ×4 (06:55→20:44)
[2021-03-01] MEDS: INSULIN ASPART (NovoLOG) 100 UNIT/ML VIAL SQ SCH ×4 (06:55→20:45)
[2021-03-01] MEDS: ALBUTEROL NEBULIZED 2.5 MG/3 ML INHALATION SCH ×3 (08:08→19:45)
[2021-03-01] MEDS: FOLIC ACID-VIT B COMPLEX-VIT C 1 CAP PO SCH (08:56)
[2021-03-01] MEDS: HEPARIN SODIUM,PORCINE/PF 5,000 UNIT/0.5 ML SYRINGE SQ SCH ×3 (08:56→23:42)
[2021-03-01] MEDS: FAMOTIDINE 20 MG TAB PO SCH (08:56)
[2021-03-01] MEDS: FLUCONAZOLE 100 MG TAB PO SCH (08:56)
[2021-03-01] MEDS: NYSTATIN 100,000UNIT/GM CREAM 30 GM TUBE TOPICAL SCH ×2 (08:57→20:51)
[2021-03-01] MEDS: CYANOCOBALAMIN 500 MCG TAB PO SCH (08:57)
[2021-03-01] MEDS: ASCORBIC ACID 500 MG TAB PO SCH (08:57)
[2021-03-01] MEDS: traMADol 50 MG TAB PO SCH ×4 (08:57→20:44)
[2021-03-01] MEDS: SODIUM BICARBONATE TAB 650 MG TAB PO SCH ×3 (08:57→20:44)
--- NOTE | 2021-03-01 09:48 | P.PN ---
Subjective Patient is seen in follow-up for end-stage renal disease. She is maintained on hemodialysis on Saturday schedule. Blood culture were positive for enterococcus facialis. She is on IV antibiotics. Chest permacath has been removed. She now has a groin tunneled femoral catheter. Patient remains confused. No problems with dialysis yesterday. Catheter worked well. Vital signs are stable. General: The patient appeared well nourished and normally developed. HEENT: Head exam is unremarkable. On nasal cannula. LUNGS: Breath sounds decreased. HEART: Rate and Rhythm are regular. ABDOMEN: Soft, no distention. EXTREMITITES: No edema. Chronic changes noted. Objective - Vital Signs Vital signs: Vital Signs Temp 97.8 F 03/01/21 08:51 Pulse 61 03/01/21 08:51 Resp 16 03/01/21 08:51 BP 100/50 03/01/21 08:51 Pulse Ox 93 L 03/01/21 08:51 Intake & Output 02/28/21 03/01/21 03/01/21 18:59 06:59 18:59 Intake Total 220 120 Output Total 1500 0 Balance -1280 0 120 Intake: Intake, IV Titration 100 Amount Ampicillin-Sulbactam 3 gm 100 In Sodium Chloride 0.9% 100 ml @ 200 mls/hr IVPB DAILY [facility] Rx#:[id number] Oral 120 120 Output: Stool 0 Hemodialysis 1500 Other: Voiding Method Incontinent Incontinent # Voids 0 # Bowel Movements 1 - Labs CBC & Chem 7: 02/28/21 07:45 03/01/21 07:16 Labs: Abnormal Lab Results - Last 24 Hours (Table) 02/28/21 02/28/21 02/28/21 Range/Units 11:56 16:39 20:26 Creatinine (0.52-1.04) mg/dL POC Glucose (mg/dL) 131 H 173 H 310 H (75-99) mg/dL 03/01/21 03/01/21 Range/Units 06:13 07:16 Creatinine 2.51 H (0.52-1.04) mg/dL POC Glucose (mg/dL) 182 H (75-99) mg/dL Assessment and Plan Plan: Assessment: 1. End-stage renal disease maintained on hemodialysis on Saturday schedule via a tunneled right femoral catheter that was placed 02/26/2021. 2. Altered mental status from sepsis. Patient also has baseline dementia. 3. Enterococcus bacteremia with source being permacath - discontinued February 16. 4. Hyperkalemia secondary to chronic kidney disease and metabolic acidosis. Resolved. 5. Anemia of chronic kidney disease. Hemoglobin stable. 6. Chronic kidney disease mineral bone disease maintained on Renvela. 7. Pericardial effusion status post pericardiocentesis. 8. Metabolic acidosis secondary to chronic kidney disease maintained on oral bicarb. 9. Hyponatremia secondary to chronic kidney disease. Plan: Hemodialysis tomorrow. Overall prognosis guarded.
--- NOTE | 2021-03-01 11:37 | P.PN ---
Subjective Progress Note Date: 03/01/21 Principal diagnosis: Bilateral pleural effusion, left greater than right, pericardial effusion, status post pericardiocentesis On 02/17/2021 patient seen in follow-up on selective care unit, patient is status post pericardiocentesis with placement of a pigtail drain, postoperative day #2, and bilateral pleural effusions, left greater than right, status post left thoracentesis by interventional radiology with removal of 560 mL of pleural fluid. Follow-up chest x-ray after the procedure showed improvement in aeration of the left lung. Patient is currently on 4 L of oxygen, and his pulse ox is 97-100%, hemodynamically stable, he is afebrile. Patient's blood culture was p ositive for Enterococcus faecalis patient is on Rocephin for antibiotic coverage, there was a concern for possibly infected permacath which was removed, and catheter tip cultures have been ordered. Patient was initially covered with vancomycin, ID service is following and current abiotic coverage is just with Rocephin. he is breathing comfortably, he is more awake and alert on today's exam, no chest pain, no abdominal pain, no nausea or vomiting. No diarrhea. On 02/18/2021 patient seen in follow-up on selective care unit. Patient is awake and alert, in no acute distress, she is on 3 L of oxygen, with a pulse ox of 97%. No worsening dyspnea at rest, she does have exertional dyspnea. No fever or chills. Patient is incontinent of urine, she does avoid, it urine output is difficult to estimate as the patient is incontinent. She remains on antibiotics in the form of ceftriaxone and vancomycin for enterococcus bacteremia, her follow-up blood cultures have shown no growth thus far, last set was sent on 02/16/2021, her permacath catheter was removed by vascular surgery and catheter tip has been sent for culture, reported on the cultures thus far, patient is status post left-sided thoracentesis, so far pleural fluid cultures remain negative. Patient is supposed to have a new hemodialysis catheter inserted today by vascular surgery. On 02/20/2021 patient seen in follow-up on selective care unit. She is currently working with physical therapy, she sitting up on the edge of the bed. She is breathing comfortably, denies any dyspnea, no cough, no chest discomfort. Lung sounds reveal diminished breath sounds with dullness at the left base, and left pleural effusion is suspected, we will obtain follow-up chest x-ray later on today, however in terms of oxygenation it has remained stable, she is currently still on 3 L a pulse ox of 100%. The labs have been reviewed but cell count is stable, at 12.1, hemoglobin is 9.4, INR is 1.2, sodium is 134, renal profile slightly worse, with BUN of 51, creatinine is 5.51. No Significant edema involving lower extremities. Remains on antibiotics in the form of ampicillin for enterococcus bacteremia, her right subclavian permacath has been removed, and catheter tip also shows quite is negative staph and group D enterococcus. Follow blood cultures have shown no growth at the 24-hour roney. Pleural fluid culture is still pending, preliminary Gram stain showed no organisms. Pericardial catheter has been removed a few days ago. Blood pressure has been stable On 02/21/2021 patient seen in follow-up on selective care unit, she is awake and alert, slightly irritable, but denies any breathing issues, no shortness of breath, only occasional cough, no phlegm production, no complaints of chest pain, she remains on the same 3 L of supplemental oxygen that she was on for last few days. Her pulse ox is 93-97%, she's been afebrile, hemodynamically she has been stable, yesterday's follow-up chest x-ray showed recurrence of a moderately sized left-sided pleural effusion. Patient had her right subclavian permacath removed, and the catheter tip was showing evidence of D enterococcus, follow-up blood cultures have been sent, and have shown no growth thus far, final cultures are still pending, no fever or chills overnight. Patient is incontinent of small amount of urine, no worsening dyspnea, no worsening edema in bilateral lower extremities. No nausea no vomiting no diarrhea. She remains on antibiotics in the form of Unasyn., On 02/22/2021 patient seen in follow-up on selective care unit, she seems to be in moderate to severe amount of distress, she is complaining of sharp abdominal pain, abdomen is soft, however in the upper midabdomen there is tenderness to palpation. And CT of the abdomen and pelvis has already been ordered by the primary care service and is pending at this time. Otherwise she denies any worsening dyspnea, remains on 4 L of oxygen pulse ox of 95%, lung sounds are diminished at the bases, her chest x-ray from a couple days ago showed increasing left-sided pleural effusion, however clinically patient has been maintaining her O2 saturations, and denying any chest discomfort or worsening dyspnea. Her follow-up blood culture from 02/18/2021 has shown no growth, and that she is supposed to have a new permacath dialysis catheter inserted. Her heparin infusion has been on hold, today's labs have been reviewed, BUN 60, creatinine 6.18. There is a mild lower extremity edema. And patient continues on Unasyn for group D enterococcus bacteremia related to permacath line infectio n. On 02/23/2021 patient seen in follow-up on [facility] care unit, she had a right femoral temporary dialysis catheter inserted yesterday and she had hemodialysis today with removal of 1 L of fluid, she is lethargic on today's exam, she has been getting IV Dilaudid for abdominal pain. Computed tomography scan has not been completed yet, diminished soft, and apparently when the patient is awake s he does complaining of abdominal discomfort. He is on 4 L oxygen pulse ox is 93%, lung sounds are diminished at the bases, with dullness over left lower and mid lung. She's had no fever. Her follow-up blood cultures starting on 02/18/2021 have been negative. On 02/24/2021 patient seen in follow-up. Patient has been dialyzed again yesterday, and 1 L of fluid was removed. Follow-up chest x-ray yesterday showed worsening left sided pleural effusion, with near complete opacification of the left lung. Today's exam patient is more lethargic and per nursing reports she is more confused. She is resistant to care, she does not want to sit up in bed, she does not want to cooperate with care. DURABLE POWER OF [employer]NA[employer] B[employer] who is her boyfriend. Lung sounds reveal very diminished breath sounds on the left, with dullness to percussion. She is currently on 4 L of oxygen the pulse ox of 96%, she is afebrile, denies any chest pain, she has a temporary hemodialysis catheter in place. Her follow-up blood cultures have been negative, she continues on antibiotics in the form of Unasyn for the bacteremia, and line infection. Had no fever or chills. On the 02/27/2021 patient seen in follow-up on selective care unit., She has a very lethargic on today's exam, she does withdraw from painful stimuli, and slightly moans with repeated verbal and tactile stimulation. Does not appear to be in any acute distress. She is currently on 2 L of oxygen, her FiO2 was earlier on 4 L of oxygen and her sat was 96% on the 4 L and subsequently FiO2 has been cut back, hemodynamically her blood pressure is 109/54, she is afebrile, does not appear to be in any respiratory distress, lung sounds are diminished, follow-up chest x-ray today is pending, patient is status post repeat left-sided thoracentesis on 02/25/2021 with removal of 1.4 L of turbid colored fluid. Follow-up chest x-ray today showed interval development of CHF with pulmonary vascular congestion, new small left pleural effusion with p rominent adjacent left basilar atelectasis and/or consolidation. Patient received a new hemodialysis catheter in the right femoral vein, and she is currently undergoing hemodialysis. No new labs. She seems to be generally swollen as well. She is lethargic, she remains on Unasyn per ID service re commendations for enterococcus bacteremia. Her follow-up blood cultures have been negative. On 03/01/2010 with patient seen in follow-up on selective care unit, she is quite lethargic on today's exam, she arouses to repeated verbal and shaking on the shoulder. She does fall back asleep, she appears to be breathing comfortably, she is currently on 2 L of oxygen her pulse ox is 93%, she's had no fever or chills, vital signs have been stable, lung sounds reveal dementia breath sounds at the bases, but no rhonchi no wheezing no crackles noted. Patient had hemodialysis treatment yesterday would removal of 1.5 L of fluid. Patient continues on Diflucan, and vancomycin for enterococcus bacteremia. Blood cultures from 02/18/2021 in 02/19/2021 have shown no growth. Patient has a temporary hemodialysis catheter in the right femoral vein right now. Still has some generalized Luba, anasarca. Last chest x-ray from 02/27/2021 showed small left pleural effusion with adjacent atelectasis, and pulmonary vessel congestion. Objective - Vital Signs Vital signs: Vital Signs Temp 97.8 F 03/01/21 08:51 Pulse 61 03/01/21 08:51 Resp 16 03/01/21 08:51 BP 100/50 03/01/21 08:51 Pulse Ox 93 L 03/01/21 08:51 Intake & Output 02/28/21 03/01/21 03/01/21 18:59 06:59 18:59 Intake Total 220 120 Output Total 1500 0 Balance -1280 0 120 Intake: Intake, IV Titration 100 Amount Ampicillin-Sulbactam 3 gm 100 In Sodium Chloride 0.9% 100 ml @ 200 mls/hr IVPB DAILY [facility] Rx#:[id number] Oral 120 120 Output: Stool 0 Hemodialysis 1500 Other: Voiding Method Incontinent Incontinent Incontinent # Voids 0 # Bowel Movements 1 - Exam GENERAL EXAM: Lethargic, 75-year-old white male, on 2 L of oxygen and pulse ox of 93% on today's exam HEAD: Normocephalic/atraumatic. EYES: Normal reaction of pupils, equal size. Conjunctiva pink, sclera white. NOSE: Clear with pink turbinates. THROAT: No erythema or exudates. NECK: No masses, no JVD, no thyroid enlargement, no adenopathy. CHEST: No chest wall deformity. Symmetrical expansion. LUNGS: Equal air entry with diminished breath sounds over the left lung CVS: Regular rate and rhythm, normal S1 and S2, no gallops, no murmurs, no rubs ABDOMEN: Soft, nontender. No hepatosplenomegaly, normal bowel sounds, slightly tender in the epigastric area EXTREMITIES: No clubbing, generalized edema, no cyanosis, 2+ pulses and upper and lower extremities. MUSCULOSKELETAL: Muscle strength and tone normal. SPINE: No scoliosis or deformity SKIN: No rashes CENTRAL NERVOUS SYSTEM: Lethargic No focal deficits, tone is normal in all 4 extremities. - Labs CBC & Chem 7: 02/28/21 07:45 03/01/21 07:16 Labs: Abnormal Lab Results - Last 24 Hours (Table) 02/28/21 02/28/21 02/28/21 Range/Units 11:56 16:39 20:26 Creatinine (0.52-1.04) mg/dL POC Glucose (mg/dL) 131 H 173 H 310 H (75-99) mg/dL 03/01/21 03/01/21 Range/Units 06:13 07:16 Creatinine 2.51 H (0.52-1.04) mg/dL POC Glucose (mg/dL) 182 H (75-99) mg/dL Assessment and Plan Plan: Assessment: #1. Pericardial effusion, status post pericardiocentesis would removal of 300 mL of bloody fluid, pericardial drain has since been removed #2. Bilateral pleural effusions, left greater than right, status post left thoracentesis by interventional radiology today on 02/17/2021 and removal of 560 cc of pleural fluid which was sent for analysis, pleural fluid cultures showed no growth. Patient had a repeat left thoracentesis on 02/25/2021 with removal of 1.4 L of pleural fluid, this was not sent for analysis #3. Enterococcus faecalis bacteremia, was on Rocephin and vancomycin, currently on Diflucan and vancomycin ID service is following. This was likely related to line infection, permacath was removed from the right subclavian and catheter tip was also positive for group D enterococcus and coagulase-negative staph #4. Status post removal of right permacath, cath tip was sent for culture, and showed group D enterococcus and coagulase-negative staph #5. Acute on chronic hypoxic respiratory failure secondary to sepsis, p ericardial effusion, and bilateral pleural effusions #6. End-stage renal disease on hemodialysis #7. Chronic A. fib on Eliquis, Eliquis is currently on hold #8. Permanent pacemaker #9. COPD on home oxygen at 4 L #10. Diabetes mellitus type 2 #11. History of hypertension #12. History of hyperlipidemia #13. History of TIA in 2019 #14. Recent history of a fall Plan: No signs of any respiratory distress Patient has been getting daily hemodialysis Most recent chest x-ray reviewed from 02/27/2021 Showed a small left pleural effusion, and pulmonary vascular congestion She is maintaining stable O2 saturations on 2 L of oxygen No plans for left-sided thoracentesis Possible discharge to ECF today I performed a history & physical examination of the patient and discussed their management with my nurse practitioner, Mallorie Zavala. I reviewed the nurse practitioner's note and agree with the documented findings and plan of care. Lung sounds are positive for diminished breath sounds. The findings and the impression was discussed with the patient. I attest to the documentation by the nurse practitioner. Time with Patient: Less than 30
[2021-03-01 11:44] LABS: Glucose,Whole Blood 277 mg/dL (75-99)
[2021-03-01] MEDS ORDERED: VANCOMYCIN 1,000 MG in SODIUM CHLORIDE 0.9% 250 ML IVPB ONE (12:00)
[2021-03-01 12:15] LABS: Calcium 9.8 mg/dL (8.4-10.2); Magnesium 2.3 mg/dL (1.6-2.3); Potassium 4.6 mmol/L (3.5-5.1)
--- NOTE | 2021-03-01 13:25 | P.CONS ---
History of Present Illness - Reason for Consult Consult date: 03/01/21 wound care - History of Present Illness This is 75 year old patient being seen on [address] for pressue ulcer to left and right buttockks and midline coccyx. the periwound shows maceration and excoriation to the site. Right buttocks: cluster of 2 measuring approx: 2x1x0.1 cm with slough and min. granulation within the wound bed no tunneling or undermining noted. Left buttocks: cluster of 2 measuring approx: 1.5x1x0.1 cm with slough and min. granulation within the wound bed no tunneling or undermining noted. Coccyx midline:measuring approx: 1x1x0.1 cm with slough and min. granulation within the wound bed no tunneling or undermining noted. Review of Systems: Constitutional: No fever, no chills. no night sweats. No weight change. Integmentary: reports wounds, no lesions. No rash or pruritis. no unusual bruising. no change in hair or nails/ Physical Exam: General Appearance: Alert, cooperative, no distress, appears stated age/ Skin: See HPI, all other skin color, texture, tugor normal. no rashes or lesions. Neurologic: Alert oriented X 3 Assessment: 1. Pressure ulcer right buttocks stage 2 2. Pressure ulcer left buttocks stage 2 3. Pressure ulcer coccyx stage 2 Plan: 1. Apply triad and sacral border foam to the site daily. turn patient 2q hour, use a waffle air cushion for sitting. Thank you for the consultation any question please call the wound care center. DNP note has been reviewed and discussed with Dr. orozco and the impression and plan of care has been directed as dictated. Past Medical History Past Medical History: Atrial Fibrillation, Asthma, Heart Failure, CVA/TIA, Diabetes Mellitus, Deep Vein Thrombosis (DVT), GERD/Reflux, Hyperlipidemia, Hypertension, Osteoarthritis (OA), Renal Disease Additional Past Medical History / Comment(s): TIA 2018; HEMODIALYSIS //SATURDAY 0630-given ativan prior to dialysis History of Any Multi-Drug Resistant Organisms: MRSA Year Discovered:: 05/12/20 MDRO Source:: MRSA URINE Past Surgical History: Adenoidectomy, Appendectomy, Cholecystectomy, Pacemaker, Tonsillectomy Past Anesthesia/Blood Transfusion Reactions: No Reported Reaction Type of Cardiac Device: Permanent Pacemaker Device Placement Date:: 2016 Past Psychological History: Anxiety, Depression Smoking Status: Never smoker Past Alcohol Use History: None Reported Past Drug Use History: None Reported - Past Family History Father Family Medical History: Myocardial Infarction ([place]) Additional Family Medical History / Comment(s): RHEUMATIC FEVER Medications and Allergies Home Medications Medication Instructions Recorded Confirmed Type Ezetimibe [Zetia] 10 mg PO HS 12/22/17 02/14/21 History Ascorbic Acid [Vitamin C] 500 mg PO DAILY 08/19/18 02/14/21 History Midodrine HCl [ProAmatine] 10 mg PO TUTHSA 09/23/19 02/14/21 History Apixaban [Eliquis] 2.5 mg PO DIRECTED 05/10/20 02/15/21 History Bydureon Bcise 2mg/0.85ml 2 mg SQ WE 05/10/20 02/14/21 History Magnesium Hydroxide [Milk of 2,400 mg PO Q24H PRN 05/10/20 02/14/21 History Magnesia] Ondansetron [Zofran] 4 mg PO Q4H PRN 05/10/20 02/14/21 History Renvela Packet 0.8gm 0.8 gm PO ACHS 05/10/20 02/14/21 History Aspirin EC [Ecotrin Low Dose] 81 mg PO DIRECTED 11/22/20 02/15/21 History Insulin Glargine,Hum.rec.anlog 15 unit SQ DAILY 11/22/20 02/14/21 History [Basaglar Kwikpen U-100] Mag Hydrox/Aluminum Hyd/Simeth 10 ml PO Q4H PRN 11/22/20 02/14/21 History [Mylanta Maximum Strength Liq] Acetaminophen Tab [Tylenol] 650 mg PO TID 02/14/21 02/14/21 History Ciprofloxacin HCl [Cipro] 500 mg PO Q12H 02/14/21 02/14/21 History Cyanocobalamin (Vitamin B-12) 1,000 mcg PO DAILY 02/14/21 02/14/21 History [Vitamin B-12] Insulin Glargine,Hum.rec.anlog 15 units SQ SUMOWEFR 02/14/21 02/14/21 History [Semglee Pen] Insulin Lispro [Insulin Lispro See Protocol SQ ACHS 02/14/21 02/14/21 History Kwikpen U-100] LORazepam [Ativan] 1 mg PO HS 02/14/21 02/14/21 History LORazepam [Ativan] 1 mg PO TUTHSA 02/14/21 02/14/21 History Lactobacillus Acidophilus 1 cap PO DAILY 02/14/21 02/14/21 History [Acidophilus] Metoprolol Tartrate [Lopressor] 25 mg PO DAILY 02/14/21 02/14/21 History Nystatin 1 applic TOPICAL BID 02/14/21 02/14/21 History Renal-Melita Tab 0.8mg 1 tab PO DAILY 02/14/21 02/14/21 History Allergies Allergy/AdvReac Type Severity Reaction Status Date / Time lisinopril Allergy Itching Verified 02/14/21 13:06 Smedxhb-Qek-Xau Reductase Allergy Itching Verified 02/14/21 13:06 Inhibitor Physical Exam Vitals: Vital Signs Temp Pulse Pulse Resp BP BP Pulse Ox 03/01/21 12:00 98.1 F 60 60 16 107/54 99 03/01/21 08:51 97.8 F 61 16 100/50 93 L 03/01/21 04:00 98.1 F 60 17 120/77 100 03/01/21 01:11 60 17 03/01/21 00:00 98.0 F 60 17 148/63 100 02/28/21 20:00 97.9 F 60 17 97/53 99 02/28/21 18:26 97.1 F L 62 20 146/69 02/28/21 16:26 97.4 F L 60 18 125/57 99 02/28/21 15:01 16 Intake and Output 02/28/21 03/01/21 03/01/21 22:59 06:59 14:59 Intake Total 120 Output Total 1500 0 Balance -1500 0 120 Intake: Oral 120 Output: Stool 0 0 Hemodialysis 1500 Other: Voiding Method Incontinent Incontinent Incontinent # Voids 0 # Bowel Movements 1 Results CBC & Chem 7: 02/28/21 07:45 03/01/21 07:16 Labs: Abnormal Lab Results - Last 24 Hours (Table) 02/28/21 02/28/21 03/01/21 Range/Units 16:39 20:26 06:13 Carbon Dioxide (22-30) mmol/L BUN (7-17) mg/dL Creatinine (0.52-1.04) mg/dL Glucose (74-99) mg/dL POC Glucose (mg/dL) 173 H 310 H 182 H (75-99) mg/dL 03/01/21 03/01/21 03/01/21 Range/Units 07:16 07:16 11:42 Carbon Dioxide 21 L (22-30) mmol/L BUN 18 H (7-17) mg/dL Creatinine 2.51 H 2.65 H (0.52-1.04) mg/dL Glucose 177 H (74-99) mg/dL POC Glucose (mg/dL) 277 H (75-99) mg/dL Assessment and Plan (1) Pressure ulcer of right buttock, stage 2 Current Visit: Yes Status: Acute Code(s): L89.312 - PRESSURE ULCER OF RIGHT BUTTOCK, STAGE 2 SNOMED Code(s): 69108688102575298 (2) Pressure ulcer of left buttock, stage 2 Current Visit: Yes Status: Acute Code(s): L89.322 - PRESSURE ULCER OF LEFT BUTTOCK, STAGE 2 SNOMED Code(s): 58635470340719754 (3) Pressure ulcer of coccygeal region, stage 2 Current Visit: Yes Status: Acute Code(s): L89.152 - PRESSURE ULCER OF SACRAL REGION, STAGE 2 SNOMED Code(s): 951011645
[2021-03-01 16:48] LABS: Glucose,Whole Blood 399 mg/dL (75-99)
--- NOTE | 2021-03-01 16:49 | PN ---
PROGRESS NOTE DATE OF SERVICE: 03/01/2021 REASON FOR FOLLOWUP: Enterococcus faecalis bacteria secondary to PermCath infection. INTERVAL HISTORY: Patient is afebrile. The patient is breathing comfortably on 2 L nasal cannula. The patient is hemodynamically stable. The patient seems to be lethargic today. Unable to provide any history. No vomiting, diarrhea or any other changes reported by the nursing staff. EXAMINATION: Blood pressure 107/54, pulse 70, temperature is 98.1. She is 99% on 2 L nasal cannula. General description is an elderly female lying in bed in no distress. Respiratory system: Unlabored breathing. Clear to auscultation anteriorly. Heart S1, S2. Regular rate and rhythm. Abdomen soft, no tenderness. LABS: BUN of 18, creatinine 2.65. DIAGNOSTIC IMPRESSION AND PLAN: Patient with Enterococcus faecalis bacteremia secondary to PermCath infection in this patient repeat blood culture has been negative. PermCath has been changed. She is on vancomycin to continue for a total of 2 weeks and close outpatient followup. MMODL / IJN: [id number] /
[2021-03-01] MEDS: HYDROPHILIC CREAM 180 GM TUBE TOPICAL SCH (16:56)
--- NOTE | 2021-03-01 17:42 | P.PN ---
Progress Note - Text Progress Note Date: 03/01/21 Chief Complaint: Short of breath History of presenting complaint: This is a 75-year-old patient who follows with Dr. Jp Brooks. Patient is resident of [facility] from where she was transferred to [facility]. Chronic stable medical conditions include CHF, end-stage kidney disease on hemodialysis TTS, atrial fibrillation, permanent pacemaker, GERD. COPD. On 4 L of oxygen at baseline. Patient just recently was at [facility] following a head trauma. Laying down which she was carried out. At her baseline patient is AO 2. Patient was transferred to [facility] as patient had become a bit confused. Normally on 4 L of oxygen she is oxygen is a 90% but dropped down to 80s. Computed tomography scan of the head was unremarkable. Chest x-rays shown pleural effusion. Also patient was started on ciprofloxacin for recent UTI. I saw the patient in the ER this afternoon. She does not want to be here she says. Patient not a good historian. Nephrology and pulmonary were consulted. Patient is short of breath. Slight cough. Not sure about fever. Blood cultures positive for Enterococcus faecalis. Pericardiocentesis done with 3 units cc of bloody fluid removed. Pigtail catheter placed. Hemodialysis catheter removed because of infection. February 25: 1400 mL of turbid, colored left thoracentesis. February 26: right groin hemodialysis catheter placed. February 15: ICU: Yesterday evening during hemodialysis patient had an episode of hypotension bradycardia.A team was called out. There was a slight change in mental status. Recovered. Patient is moved to the ICU. Patient's significant other is in the room. Today. Patient on clear liquids. Ultrasound marking for the left pleural effusion has been done. Consultation to cardiology, neurology's been done. EEG ordered. Blood cultures growing gram-positive cocci in cultures. Given vancomycin February 16: 2-D echocardiogram which showed a large generalized pericardial effusion. Today Dr. Dubois from cardiothoracic surgery did pericardiocentesis: 300 mL of bloody fluid was obtained. Pigtail catheter was placed. D POA at the bedside. Patient tired. Has not eaten today. Hemodialysis today. Following that the hemodialysis catheter will be removed by Dr. Pearl. 5 60 mL of left- sided sanguinous fluid removed from the left side February 17: Patient more awake. Reclining in bed. Declining food. Significant other at the bedside. Less short of breath. Pigtail catheter to drain February 18: Sitting up in bed. Awake. Pigtail catheter removed from the pericardium. Had minimal drainage. Significant other at the bedside. Patient had about 50% of for breakfast. February 19: Propped up in bed, awake. Dialysis has been held pending new dialysis catheter placement. Eating fair amounts. Breathing stable. February 27: Oral intake variable. Able to answer questions. Significant other the bedside. I spent a lot of time discussing with him the different aspects of care. The fact that patient's prognosis is guarded. Did communicate with Dr. Helton from nephrology and Dr. Win from ID. Patient should be ready to be discharged shortly. February 28: Oral intake somewhat limited. Patient's DPO Kamar was concerned about having patient leg pain. Patient has no complains of leg pains. Physical examination did not show any findings and explain any obvious pain. When patient's os how she drink she says okay. She sometimes feels a help me help me . But otherwise appears to be comfortable. A lengthy meeting was held with the patient, social work lecturer Donald, patient advocate Gorge and myself. They don't Kamar decided to make the patient DO NOT RESUSCITATE. March 01: Earlier today patient had a very brief episode of decreased responsiveness. Recovered. Patient's DPO 8, Kamar at the bedside. Oral intake reasonably fair. Patient resting in bed comfortably. Tired Review of systems: Attempted for constitutional, cardiovascular, GI, pulmonary. relevant finding as above Active Medications Acetaminophen (Acetaminophen Tab 325 Mg Tab) 650 mg PO Q6HR PRN PRN Reason: Mild Pain or Fever > 100.5 Last Admin: 02/27/21 16:23 Dose: 650 mg Documented by: Al Hydroxide/Mg Hydroxide (Mag Hydrox/Al Hydrox/Simeth 30 Ml Cup) 10 ml PO Q4H PRN PRN Reason: Indigestion Albuterol Sulfate (Albuterol Nebulized 2.5 Mg/3 Ml) 2.5 mg INHALATION RT-QID [facility] Last Admin: 03/01/21 16:15 Dose: Not Given Documented by: Ascorbic Acid (Ascorbic Acid 500 Mg Tab) 500 mg PO DAILY [facility] Last Admin: 03/01/21 08:57 Dose: 500 mg Documented by: Calcium Carbonate/Glycine (Calcium Carbonate 500 Mg Chewable) 1,000 mg PO Q4HR PRN PRN Reason: Dyspepsia Last Admin: 02/22/21 09:29 Dose: 1,000 mg Documented by: Cyanocobalamin (Cyanocobalamin 500 Mcg Tab) 1,000 mcg PO DAILY [facility] Last Admin: 03/01/21 08:57 Dose: 1,000 mcg Documented by: Ezetimibe (Ezetimibe 10 Mg Tab) 10 mg PO HS [facility] Last Admin: 02/28/21 21:36 Dose: 10 mg Documented by: Famotidine (Famotidine 20 Mg Tab) 20 mg PO DAILY [facility] Last Admin: 03/01/21 08:56 Dose: 20 mg Documented by: Fluconazole (Fluconazole 100 Mg Tab) 100 mg PO DAILY [facility] Last Admin: 03/01/21 08:56 Dose: 100 mg Documented by: Heparin Sodium (Porcine) (Heparin Sodium,Porcine/Pf 5,000 Unit/0.5 Ml Syringe) 5,000 unit SQ Q8HR [facility] Last Admin: 03/01/21 17:02 Dose: 5,000 unit Documented by: Hydromorphone HCl (Hydromorphone 0.5 Mg/0.5 Ml Syringe) 0.5 mg IVP Q4HR PRN PRN Reason: Pain Last Admin: 03/01/21 01:17 Dose: 0.5 mg Documented by: Insulin Aspart (Insulin Aspart (Novolog) 100 Unit/Ml Vial) 0 unit SQ [facility]; Protocol Last Admin: 03/01/21 17:01 Dose: 7 unit Documented by: Lactulose (Lactulose 20 Gm/30 Ml Cup) 20 gm PO DAILY PRN PRN Reason: Constipation Magnesium Hydroxide (Magnesium Hydroxide 2,400 Mg/10 Ml Cup) 2,400 mg PO Q24H PRN PRN Reason: Constipation Midodrine (Midodrine 5 Mg Tab) 10 mg PO TuThSa@0900 [facility] Last Admin: 02/28/21 09:54 Dose: 10 mg Documented by: Miscellaneous Information (Vancomycin Iv Per Pharmacy 1 Each Misc) 1 each MISCELLANE DIRECTED PRN; Protocol PRN Reason: Per Protocol Multi-Ingred Cream/Lotion/Oil/Oint (Hydrophilic Cream 180 Gm Tube) 1 applic TOPICAL DAILY [facility]; Protocol Last Admin: 03/01/21 16:56 Dose: 1 applic Documented by: Multivit/Ca Carb/B Cmplx/FA/Prenat (Folic Acid-Vit B Complex-Vit C 1 Cap) 1 each PO DAILY [facility] Last Admin: 03/01/21 08:56 Dose: 1 each Documented by: Naloxone HCl (Naloxone 0.4 Mg/Ml 1 Ml Vial) 0.2 mg IV Q2M PRN PRN Reason: Opioid Reversal Last Admin: 02/23/21 19:05 Dose: 0.2 mg Documented by: Nystatin (Nystatin 100,000unit/Gm Cream 30 Gm Tube) 1 applic TOPICAL BID [facility]; Protocol Last Admin: 03/01/21 08:57 Dose: 1 applic Documented by: Ondansetron HCl (Ondansetron 4 Mg/2 Ml Vial) 4 mg IVP Q8HR PRN PRN Reason: Nausea And Vomiting Last Admin: 02/23/21 21:14 Dose: 4 mg Documented by: Senna (Sennosides 8.6 Mg Tab) 8.6 mg PO BID PRN PRN Reason: Constipation Sevelamer Carbonate (Sevelamer 800 Mg Tab) 800 mg PO ACHS [facility] Last Admin: 03/01/21 17:01 Dose: 800 mg Documented by: Sodium Bicarbonate (Sodium Bicarbonate Tab 650 Mg Tab) 650 mg PO TID [facility] Last Admin: 03/01/21 17:01 Dose: 650 mg Documented by: Tramadol HCl (Tramadol 50 Mg Tab) 25 mg PO QID [facility] Last Admin: 03/01/21 17:06 Dose: 25 mg Documented by: Past medical history to include: Atrial fibrillation, asthma, CHF, diabetes, DVT, GERD, hypertension, hyperlipidemia, osteomyelitis discitis, end-stage kidney disease with hemodialysis, TIA, permanent pacemaker, more disorder. Oxygen 4-4 L Social history: No history of smoking or alcohol. Currently at [facility] Family history: Rheumatic fever, [place] Physical examination: VITAL SIGNS: 98.3, 67, 16, 114/69, 97% on 2 L GENERAL:, Laying in bed, tired EYES: Pupils equal. Conjunctiva normal. HEENT: External appearance of nose and ears normal, oral cavity grossly normal. NECK: JVD unable to assess; masses not palpable. HEART: First and second heart sounds are normal; some edema. LUNGS:[ Respiratory rate normal, diminished breath sounds. ABDOMEN: Soft, nontender, liver spleen not palpable, no masses palpable. Right groin hemodialysis catheter EXTREMITY: Other than arthritis no evidence of any significant abnormality. PSYCH: Answering occasional questions, INVESTIGATIONS, reviewed in the clinical context: March 01: Potassium 4.6 magnesium 2.3 creatinine 2.65 February 28: WBC 9.6 hemoglobin 8.8 sodium 1:30 potassium 5 BUN 29 creatinine 3.61 Blood culture [February 19]: Negative February 23: WBC 14.8 hemoglobin 10.5 February 19: WBC 12.4 hemoglobin 9.5 potassium 4.2 creatinine 5.33 February 18: Potassium 4.1 February 17: Potassium 4.4 EEG: No epilepsy activity noted. Encephalopathic findings February 16: INR 1.6 TSH 3.8 February 15: WBC 22.8 hemoglobin 10.3 potassium 3.9 BUN 37 creatinine 4.23 2-D echocardiogram: EF 50-55% large generalized pericardial effusion Blood culture [February 14]: Enterococcus faecalis Dialysis catheter tip culture: Group D enterococcus [Labs from [facility]] WBC 20.4 hemoglobin 10.2 platelets 453 sodium 133 potassium 5.5 BUN 56 crit and 6.7 ALT, AST both normal bilirubin 0.5 albumin 3.7 Troponin I 0.015 Computed tomography scan of the head reportedly negative EKG tracing personally reviewed by me-atrial flutter fibrillation with intraventricular block pattern Chest x-ray film personally reviewed by me-cardiomegaly, trachea pole to the right, pleural effusion Assessment and plan: -Acute hypoxic respiratory failure from large pleural effusion: Better Combination of inadequate hemodialysis and/or CHF. Patient underwent hemodialysis and left thoracentesis 2. -Chronic hypoxic respiratory failure on 2 L of oxygen -Bacteremia Enterococcus faecalis. From hemodialysis catheter. Vancomycin. Hemodialysis catheter removed. Repeat blood culture from February 19 negative -Large pericardial effusion: February 16: Pericardiocentesis of 300 mL of bloody fluid, Pigtail catheter-removed February 18. -End-stage kidney disease on hemodialysis, TTS Hemodialysis . -Large left pleural effusion, sanguinous Thoracentesis 560 mL removed on February 16. 1400 mL removed on February 25 -Persistent atrial flutter fibrillation Continue eliquis -Acute UTI with cystitis, IV ceftriaxone.-Completed -Diabetes mellitus type 2, chronically on insulin Follow Accu-Cheks. -Chronic hypotension Patient is on midodrine -Chronic medical debility -Acute delirium from hypoxia/hypoxic encephalopathy: Improved EEG-encephalopathy findings -Underlying cognitive impairment -Permanent pacemaker -DO NOT RESUSCITATE -DPJOSEF, Kamar Delcid Patient's DPO Kamar requesting that patient be kept in the hospital for 1 more day. Current medications to be continued. Did communicate with the social work lecturer. 4 discharged to [facility] tomorrow. Also spoke with a patient advocate Isaiah. Also did discuss with the nurse. Total time spent about 40 minutes with over 50% discussion. Prognosis guarded.
[2021-03-01 20:23] LABS: Glucose,Whole Blood 347 mg/dL (75-99)
[2021-03-01] MEDS: EZETIMIBE 10 MG TAB PO SCH (20:45)
[2021-03-02 06:08] LABS: Glucose,Whole Blood 297 mg/dL (75-99)
[2021-03-02] MEDS: INSULIN ASPART (NovoLOG) 100 UNIT/ML VIAL SQ SCH ×2 (06:20→15:24)
[2021-03-02] MEDS: SEVELAMER 800 MG TAB PO SCH ×2 (06:21→13:04)
[2021-03-02] MEDS: HEPARIN SODIUM,PORCINE/PF 5,000 UNIT/0.5 ML SYRINGE SQ SCH (08:37)
[2021-03-02] MEDS: FLUCONAZOLE 100 MG TAB PO SCH (08:37)
[2021-03-02] MEDS: FOLIC ACID-VIT B COMPLEX-VIT C 1 CAP PO SCH (08:37)
[2021-03-02] MEDS: CYANOCOBALAMIN 500 MCG TAB PO SCH (08:37)
[2021-03-02] MEDS: SODIUM BICARBONATE TAB 650 MG TAB PO SCH (08:37)
[2021-03-02] MEDS: MIDODRINE 5 MG TAB PO SCH (08:38)
[2021-03-02] MEDS: FAMOTIDINE 20 MG TAB PO SCH (08:38)
[2021-03-02] MEDS: traMADol 50 MG TAB PO SCH ×2 (08:38→13:04)
[2021-03-02] MEDS: HYDROPHILIC CREAM 180 GM TUBE TOPICAL SCH (08:38)
[2021-03-02] MEDS: ASCORBIC ACID 500 MG TAB PO SCH (08:38)
[2021-03-02] MEDS: NYSTATIN 100,000UNIT/GM CREAM 30 GM TUBE TOPICAL SCH (08:39)
[2021-03-02] MEDS: ALBUTEROL NEBULIZED 2.5 MG/3 ML INHALATION SCH ×3 (08:56→16:06)
--- NOTE | 2021-03-02 09:56 | P.PN ---
Subjective Patient is seen in follow-up for end-stage renal disease. She is maintained on hemodialysis on Saturday schedule. Blood culture were positive for enterococcus facialis. She is on IV antibiotics. Chest permacath has been removed. She now has a groin tunneled femoral catheter. Patient remains confused. Catheter working well. Vital signs are stable. General: The patient appeared well nourished and normally developed. HEENT: Head exam is unremarkable. On nasal cannula. LUNGS: Breath sounds decreased. HEART: Rate and Rhythm are regular. ABDOMEN: Soft, no distention. EXTREMITITES: No edema. Chronic changes noted. Objective - Vital Signs Vital signs: Vital Signs Temp 98.1 F 03/02/21 03:44 Pulse 88 03/02/21 09:04 Resp 16 03/02/21 09:04 BP 117/70 03/02/21 03:44 Pulse Ox 97 03/02/21 08:56 Intake & Output 03/01/21 03/02/21 03/02/21 18:59 06:59 18:59 Intake Total 370 Output Total 0 Balance 370 0 Weight 50 kg Intake: Oral 370 Output: Stool 0 Other: Voiding Method Incontinent Incontinent # Voids 1 # Bowel Movements 1 1 - Labs CBC & Chem 7: 02/28/21 07:45 03/01/21 07:16 Labs: Abnormal Lab Results - Last 24 Hours (Table) 03/01/21 03/01/21 03/01/21 Range/Units 07:16 11:42 16:46 Carbon Dioxide 21 L (22-30) mmol/L BUN 18 H (7-17) mg/dL Creatinine 2.65 H (0.52-1.04) mg/dL Glucose 177 H (74-99) mg/dL POC Glucose (mg/dL) 277 H 399 H (75-99) mg/dL 03/01/21 03/02/21 Range/Units 20:22 06:07 Carbon Dioxide (22-30) mmol/L BUN (7-17) mg/dL Creatinine (0.52-1.04) mg/dL Glucose (74-99) mg/dL POC Glucose (mg/dL) 347 H 297 H (75-99) mg/dL Assessment and Plan Plan: Assessment: 1. End-stage renal disease maintained on hemodialysis on Saturday schedule via a tunneled right femoral catheter that was placed 02/26/2021. 2. Altered mental status from sepsis. Patient also has baseline dementia. 3. Enterococcus bacteremia with source being permacath - discontinued February 16. 4. Hyperkalemia secondary to chronic kidney disease and metabolic acidosis. Resolved. 5. Anemia of chronic kidney disease. Hemoglobin stable. 6. Chronic kidney disease mineral bone disease maintained on Renvela. 7. Pericardial effusion status post pericardiocentesis. 8. Metabolic acidosis secondary to chronic kidney disease maintained on oral bicarb. 9. Hyponatremia secondary to chronic kidney disease. Plan: Hemodialysis today. Overall prognosis guarded. Possible discharge to [facility] today.
[2021-03-02] MEDS: HYDROmorphone 0.5 MG/0.5 ML SYRINGE IVP PRN (09:57)
[2021-03-02] MEDS ORDERED: DARBEPOETIN ALFA 40 MCG/0.4 ML SYRINGE SQ SCH (10:00)
--- NOTE | 2021-03-02 11:40 | P.DS ---
Providers Date of admission: 02/14/21 11:43 Expected date of discharge: 03/02/21 Attending physician: Cortez Harman Consults: 02/14/21 11:38 Consult Physician Urgent Consulting Provider: Tigre Helton Consult Reason/Comments: Needs dialysis Do you want consulting provider notified?: Yes 02/14/21 11:39 Consult Physician Urgent Consulting Provider: Marc Najera Consult Reason/Comments: Left pleural effusion, possible infiltrate Do you want consulting provider notified?: Yes 02/15/21 12:17 Consult Physician Routine Consulting Provider: Ricardo Najera Consult Reason/Comments: change in mental status Do you want consulting provider notified?: Yes 02/15/21 12:19 Consult Physician Routine Consulting Provider: Angel Luis Rizvi Consult Reason/Comments: bradycardia/pacemaker Do you want consulting provider notified?: Yes 02/15/21 12:40 Consult Physician Routine Consulting Provider: Ashley Win Consult Reason/Comments: bactremia Do you want consulting provider notified?: Already Contacted 02/16/21 08:13 Consult Physician Routine Consulting Provider: Leonardo Dubois Consult Reason/Comments: pericardial effusion Do you want consulting provider notified?: Yes 02/16/21 11:15 Consult Physician Routine Consulting Provider: Onur Pearl Consult Reason/Comments: removal of HD permacath, then placement of new cath. Do you want consulting provider notified?: Yes Primary care physician: Jp Brooks [facility] Hospital Course: Chief Complaint: Short of breath History of presenting complaint: This is a 75-year-old patient who follows with Dr. Jp Brooks. Patient is resident of [facility] from where she was transferred to [facility]. Chronic stable medical conditions include CHF, end-stage kidney disease on hemodialysis TTS, atrial fibrillation, permanent pacemaker, GERD. COPD. On 4 L of oxygen at baseline. Patient just recently was at [facility] following a head trauma. Laying down which she was carried out. At her baseline patient is AO 2. Patient was transferred to [facility] as patient had become a bit confused. Normally on 4 L of oxygen she is oxygen is a 90% but dropped down to 80s. Computed tomography scan of the head was unremarkable. Chest x-rays shown pleural effusion. Also patient was started on ciprofloxacin for recent UTI. I saw the patient in the ER this afternoon. She does not want to be here she says. Patient not a good historian. Nephrology and pulmonary were consulted. Patient is short of breath. Slight cough. Not sure about fever. Blood cultures positive for Enterococcus faecalis. Pericardiocentesis done with 3 units cc of bloody fluid removed. Pigtail catheter placed. Hemodialysis catheter removed because of infection. February 25: 1400 mL of turbid, colored left thoracentesis. February 26: right groin hemodialysis catheter placed. February 15: ICU: Yesterday evening during hemodialysis patient had an episode of hypotension bradycardia.A team was called out. There was a slight change in mental status. Recovered. Patient is moved to the ICU. Patient's significant other is in the room. Today. Patient on clear liquids. Ultrasound marking for the left pleural effusion has been done. Consultation to cardiology, neurology's been done. EEG ordered. Blood cultures growing gram- positive cocci in cultures. Given vancomycin February 16: 2-D echocardiogram which showed a large generalized pericardial effusion. Today Dr. Dubois from cardiothoracic surgery did pericardiocentesis: 300 mL of bloody fluid was obtained. Pigtail catheter was placed. D SHELBY at the bedside. Patient tired. Has not eaten today. Hemodialysis today. Following that the hemodialysis catheter will be removed by Dr. Pearl. 5 60 mL of left-sided sanguinous fluid removed from the left side February 17: Patient more awake. Reclining in bed. Declining food. Significant other at the bedside. Less short of breath. Pigtail catheter to drain February 18: Sitting up in bed. Awake. Pigtail catheter removed from the pericardium. Had minimal drainage. Significant other at the bedside. Patient had about 50% of for breakfast. February 19: Propped up in bed, awake. Dialysis has been held pending new dialysis catheter placement. Eating fair amounts. Breathing stable. February 27: Oral intake variable. Able to answer questions. Significant other th e bedside. I spent a lot of time discussing with him the different aspects of care. The fact that patient's prognosis is guarded. Did communicate with Dr. Helton from nephrology and Dr. Win from ID. Patient should be ready to be discharged shortly. February 28: Oral intake somewhat limited. Patient's DPO Kamar was concerned about having patient leg pain. Patient has no complains of leg pains. Physical examination did not show any findings and explain any obvious pain. When patient's os how she drink she says okay. She sometimes feels a help me help me. But otherwise appears to be comfortable. A lengthy meeting was held with the patient, social service assistant Donald, patient advocate Gorge and myself. They don't Kamar decided to make the patient DO NOT RESUSCITATE. March 01: Earlier today patient had a very brief episode of decreased responsiveness. Recovered. Patient's DPO 8, Kamar at the bedside. Oral intake reasonably fair. Patient resting in bed comfortably. Tired March 02: Laying in bed. Comfortable. Sleepy. Oral intake about 25%. Prognosis guarded. Past medical history to include: Atrial fibrillation, asthma, CHF, diabetes, DVT, GERD, hypertension, hyperlipidemia, osteomyelitis discitis, end-stage kidney disease with hemodialysis, TIA, permanent pacemaker, more disorder. Oxygen 4-4 L Social history: No history of smoking or alcohol. Currently at [facility] Family history: Rheumatic fever, [place] Physical examination: VITAL SIGNS: 98, 88, 16, 97/47, 97% on 2 L GENERAL:, Laying in bed, tired, sleepy EYES: Pupils equal. Conjunctiva normal. HEENT: External appearance of nose and ears normal, oral cavity grossly normal. NECK: JVD unable to assess; masses not palpable. HEART: First and second heart sounds are normal; some edema. LUNGS:[ Respiratory rate normal, diminished breath sounds. ABDOMEN: Soft, nontender, liver spleen not palpable, no masses palpable. Right groin hemodialysis catheter EXTREMITY: Other than arthritis no evidence of any significant abnormality. PSYCH: Answering occasional questions, INVESTIGATIONS, reviewed in the clinical context: March 01: Potassium 4.6 magnesium 2.3 creatinine 2.65 February 28: WBC 9.6 hemoglobin 8.8 sodium 1:30 potassium 5 BUN 29 creatinine 3.61 Blood culture [February 19]: Negative February 23: WBC 14.8 hemoglobin 10.5 February 19: WBC 12.4 hemoglobin 9.5 potassium 4.2 creatinine 5.33 February 18: Potassium 4.1 February 17: Potassium 4.4 EEG: No epilepsy activity noted. Encephalopathic findings February 16: INR 1.6 TSH 3.8 February 15: WBC 22.8 hemoglobin 10.3 potassium 3.9 BUN 37 creatinine 4.23 2-D echocardiogram: EF 50-55% large generalized pericardial effusion Blood culture [February 14]: Enterococcus faecalis Dialysis catheter tip culture: Group D enterococcus [Labs from [facility]] WBC 20.4 hemoglobin 10.2 platelets 453 sodium 133 potassium 5.5 BUN 56 crit and 6.7 ALT, AST both normal bilirubin 0.5 albumin 3.7 Troponin I 0.015 Computed tomography scan of the head reportedly negative EKG tracing personally reviewed by me-atrial flutter fibrillation with intraventricular block pattern Chest x-ray film personally reviewed by me-cardiomegaly, trachea pole to the right, pleural effusion Assessment and plan: -Acute hypoxic respiratory failure from large pleural effusion: Better Combination of inadequate hemodialysis and/or CHF. Patient underwent hemodialysis and left thoracentesis 2. -Chronic hypoxic respiratory failure on 2 L of oxygen -Bacteremia Enterococcus faecalis. From hemodialysis catheter. Vancomycin. Hemodialysis catheter removed. Repeat blood culture from February 19 negative. Vancomycin with hemodialysis for next 2 weeks -Large pericardial effusion: February 16: Pericardiocentesis of 300 mL of bloody fluid, Pigtail catheter-removed February 18. -End-stage kidney disease on hemodialysis, TTS Hemodialysis . -Large left pleural effusion, sanguinous Thoracentesis 560 mL removed on February 16. 1400 mL removed on February 25 -Persistent atrial flutter fibrillation Continue eliquis -Acute UTI with cystitis, IV ceftriaxone.-Completed -Diabetes mellitus type 2, chronically on insulin Follow Accu-Cheks. -Chronic hypotension Patient is on midodrine -Chronic medical debility -Acute delirium from hypoxia/hypoxic encephalopathy: Improved EEG-encephalopathy findings -Underlying cognitive impairment -Permanent pacemaker -DO NOT RESUSCITATE -Kamar JORDAN Disposition: [facility] Prognosis: Poor. Had discussed with Kamar that if the patient does not improve or deteriorates, Hospice would be appropriate. Plan - Discharge Summary Discharge Rx Participant: No New Discharge Prescriptions: New Darbepoetin Vu [Aranesp] 40 mcg SQ Q7D syringe Lactulose [Cephulac] 20 gm PO DAILY PRN ml PRN Reason: Constipation Sodium Bicarbonate Tab 650 mg PO TID tab Hydrophilic Cream [Triad Cream] 1 applic TOPICAL DAILY applic traMADol HCL [Ultram] 50 mg PO Q6H PRN #12 tab PRN Reason: Pain Albuterol Nebulized [Ventolin Nebulized] 2.5 mg INHALATION RT-QID ml Famotidine [Pepcid] 20 mg PO DAILY tab Calcium Carbonate [Tums] 1,000 mg PO Q4HR PRN chew PRN Reason: Dyspepsia INSULIN ASPART (NovoLOG) [NovoLOG (formulary)] 0 unit SQ ACHS vial Continue Ezetimibe [Zetia] 10 mg PO HS Midodrine HCl [ProAmatine] 10 mg PO TUTHSA Renvela Packet 0.8gm 0.8 gm PO ACHS Ondansetron [Zofran] 4 mg PO Q4H PRN PRN Reason: Nausea And Vomiting Magnesium Hydroxide [Milk of Magnesia] 2,400 mg PO Q24H PRN PRN Reason: Constipation Insulin Lispro [Insulin Lispro Kwikpen U-100] See Protocol SQ ACHS Acetaminophen Tab [Tylenol] 650 mg PO TID LORazepam [Ativan] 1 mg PO HS #3 tab Mag Hydrox/Aluminum Hyd/Simeth [Mylanta Maximum Strength Liq] 10 ml PO Q4H PRN PRN Reason: Indigestion Renal-Melita Tab 0.8mg 1 tab PO DAILY Nystatin 1 applic TOPICAL BID Cyanocobalamin (Vitamin B-12) [Vitamin B-12] 1,000 mcg PO DAILY Changed Insulin Glargine,Hum.rec.anlog [Basaglar Kwikpen U-100] 18 unit SQ DAILY #0 Discontinued Ascorbic Acid [Vitamin C] 500 mg PO DAILY Bydureon Bcise 2mg/0.85ml 2 mg SQ WE Apixaban [Eliquis] 2.5 mg PO DIRECTED Metoprolol Tartrate [Lopressor] 25 mg PO DAILY Ciprofloxacin HCl [Cipro] 500 mg PO Q12H Insulin Glargine,Hum.rec.anlog [Semglee Pen] 15 units SQ SUMOWEFR Aspirin EC [Ecotrin Low Dose] 81 mg PO DIRECTED Lactobacillus Acidophilus [Acidophilus] 1 cap PO DAILY LORazepam [Ativan] 1 mg PO TUTHSA Discharge Medication List Ezetimibe [Zetia] 10 mg PO HS 12/22/17 [History] Midodrine HCl [ProAmatine] 10 mg PO TUTHSA 09/23/19 [History] Magnesium Hydroxide [Milk of Magnesia] 2,400 mg PO Q24H PRN 05/10/20 [History] Ondansetron [Zofran] 4 mg PO Q4H PRN 05/10/20 [History] Renvela Packet 0.8gm 0.8 gm PO ACHS 05/10/20 [History] Mag Hydrox/Aluminum Hyd/Simeth [Mylanta Maximum Strength Liq] 10 ml PO Q4H PRN 11/22/20 [History] Acetaminophen Tab [Tylenol] 650 mg PO TID 02/14/21 [History] Cyanocobalamin (Vitamin B-12) [Vitamin B-12] 1,000 mcg PO DAILY 02/14/21 [History] Insulin Lispro [Insulin Lispro Kwikpen U-100] See Protocol SQ ACHS 02/14/21 [History] Nystatin 1 applic TOPICAL BID 02/14/21 [History] Renal-Melita Tab 0.8mg 1 tab PO DAILY 02/14/21 [History] Albuterol Nebulized [Ventolin Nebulized] 2.5 mg INHALATION RT-QID ml 03/02/21 [Rx] Calcium Carbonate [Tums] 1,000 mg PO Q4HR PRN chew 03/02/21 [Rx] Darbepoetin Vu [Aranesp] 40 mcg SQ Q7D syringe 03/02/21 [Rx] Famotidine [Pepcid] 20 mg PO DAILY tab 03/02/21 [Rx] Hydrophilic Cream [Triad Cream] 1 applic TOPICAL DAILY applic 03/02/21 [Rx] INSULIN ASPART (NovoLOG) [NovoLOG (formulary)] 0 unit SQ ACHS vial 03/02/21 [Rx] Insulin Glargine,Hum.rec.anlog [Basaglar Kwikpen U-100] 18 unit SQ DAILY #0 03/02/21 [Rx] LORazepam [Ativan] 1 mg PO HS #3 tab 03/02/21 [Rx] Lactulose [Cephulac] 20 gm PO DAILY PRN ml 03/02/21 [Rx] Sodium Bicarbonate Tab 650 mg PO TID tab 03/02/21 [Rx] traMADol HCL [Ultram] 50 mg PO Q6H PRN #12 tab 03/02/21 [Rx] Follow up Appointment(s)/Referral(s): Jp Brooks MD [Primary Care Provider] - 1-2 days [facility] [NON-STAFF] - As Needed Rodney Alvarado MD [STAFF PHYSICIAN] - 2 Weeks Activity/Diet/Wound Care/Special Instructions: dysphagia diet ground/daibetic
[2021-03-02 11:43] LABS: Glucose,Whole Blood 210 mg/dL (75-99)
[2021-03-02 15:50] VITALS: BP 131/71; PULSE 62; RESP 18; TEMP 97.6
--- NOTE | 2021-03-02 17:12 | PN ---
PROGRESS NOTE DATE OF SERVICE: 03/02/2021 REASON FOR FOLLOWUP: Enterococcus faecalis bacteremia secondary to PermCath infection. INTERVAL HISTORY: The patient is afebrile. The patient is breathing comfortably on nasal cannula oxygen. Hemodynamically stable. No vomiting or diarrhea has been reported by the nursing staff. The patient remains to be sleepy and unable to provide any history. PHYSICAL EXAMINATION: Blood pressure 131/71 with a pulse of 62, temperature 97.6. He is 97% on 2 L nasal cannula. General description is an elderly female lying in bed in no distress. Respiratory system: Unlabored breathing, decreased breath sounds in the bases. No wheeze. Heart S1, S2. Regular rate and rhythm. Abdomen soft, no tenderness. LAB: Vanco level 23. Blood culture repeat has been negative. DIAGNOSTIC IMPRESSION AND PLAN: Patient with Enterococcus faecalis bacteremia secondary to PermCath infection, has been discontinued. Repeat blood culture negative. Plan is for a total of 2 weeks of antibiotic Vancomycin so it can be done thru dialysis placement of the PICC line and continue supportive care. MMODL / IJN: [id number] /
--- NOTE | 2021-03-03 11:43 | CDI ---
Documentation Clarification Form Date: 03/03/21 From: Marie Coekr Admit Date: 02/14/2021 11:43:00 AM Patient Name: Ashish Paul Visit Number: [id number] Discharge Date: 03/02/2021 05:39:00 PM ATTENTION: The Clinical Documentation Specialists (CDI) and [facility] Coding Staff appreciate your assistance in clarifying documentation. Please respond to the clarification below the line at the bottom and electronically sign. The CDI & [facility] Coding staff will review the response and follow-up if needed. Please note: Queries are made part of the Legal Health Record. If you have any questions, please contact the author of this message via ITS. Dr. Cortez Harman, Conflicting documentation has been found in the medical record. As attending physician, please provide clarification. Per Nephrology consult patient has sepsis and AMS likely from sepsis and subsequent nephrology PNs. Per Dr Najera's 02/17 PN patient has acute and chronic hypoxic respiratory secondary to sepsis. Per your DS the patient has bacteremia enterococcus faecalis from hemodialysis catheter. History/Risk Factors: HTN w ESRD, permanent a fib Clinical Indicators: Acute and chronic hypoxic respiratory failure secondary to sepsis. Per 02/16 consult- altered mental status due to septic encephalopathy. Also a component of some metabolic encephalopathy. 02/14-BC grew Enterococcus faecalis. Cath tip culture grew Group D Enterococcus. Treatment: Please clarify which diagnosis is most appropriate: [ ] Sepsis due to Enterococcus [ ] Bacteremia due to Enterococcus [ ] Other (please specify) [ ] Unable to determine Sepsis due to enterococcus faecalis MTDD
== END 2021-03-02 17:39 | DRG 314 ==
LOC: EC 10:56 → 4SSUR 11:43 → 2SICU 18:16 → 3SCARD 02-16 11:36
PROVIDERS: ADMIT Hospitalist; ATTEND Hospitalist
PROC: 5A1D70Z Performance of Urinary Filtration, Intermittent, Less than 6 Hours Per Day (ICD-10-PCS; 2021-02-14)
PROC: 0W9D30Z Drainage of Pericardial Cavity with Drainage Device, Percutaneous Approach (ICD-10-PCS; 2021-02-16)
PROC: 02PAX3Z Removal of Infusion Device from Heart, External Approach (ICD-10-PCS; 2021-02-16)
PROC: 0W9B3ZX Drainage of Left Pleural Cavity, Percutaneous Approach, Diagnostic (ICD-10-PCS; principal; 2021-02-17)
PROC: 06H033Z Insertion of Infusion Device into Inferior Vena Cava, Percutaneous Approach (ICD-10-PCS; 2021-02-22)
PROC: 0W9B3ZZ Drainage of Left Pleural Cavity, Percutaneous Approach (ICD-10-PCS; 2021-02-25)
PROC: 06H033Z Insertion of Infusion Device into Inferior Vena Cava, Percutaneous Approach (ICD-10-PCS; 2021-02-26)
PROC: B5191ZZ Fluoroscopy of Inferior Vena Cava using Low Osmolar Contrast (ICD-10-PCS; 2021-02-26)
DX: T80.211A Bloodstream infection due to central venous catheter, initial encounter (principal); N18.6 End stage renal disease; J96.21 Acute and chronic respiratory failure with hypoxia; A41.81 Sepsis due to Enterococcus; R65.20 Severe sepsis without septic shock; G93.41 Metabolic encephalopathy; N17.9 Acute kidney failure, unspecified; G93.1 Anoxic brain damage, not elsewhere classified; E87.2 Acidosis; I12.0 Hypertensive chronic kidney disease with stage 5 chronic kidney disease or end stage renal disease; J90 Pleural effusion, not elsewhere classified; I31.3 Pericardial effusion (noninflammatory); E87.1 Hypo-osmolality and hyponatremia; I48.21 Permanent atrial fibrillation; I48.92 Unspecified atrial flutter; J93.82 Other air leak; J98.11 Atelectasis; N30.00 Acute cystitis without hematuria; I95.3 Hypotension of hemodialysis; L89.312 Pressure ulcer of right buttock, stage 2; E83.9 Disorder of mineral metabolism, unspecified; D63.1 Anemia in chronic kidney disease; L89.322 Pressure ulcer of left buttock, stage 2; I49.5 Sick sinus syndrome; L89.152 Pressure ulcer of sacral region, stage 2; E11.69 Type 2 diabetes mellitus with other specified complication; E11.22 Type 2 diabetes mellitus with diabetic chronic kidney disease; F03.90 Unspecified dementia, unspecified severity, without behavioral disturbance, psychotic disturbance, mood disturbance, and anxiety; J44.9 Chronic obstructive pulmonary disease, unspecified; K56.41 Fecal impaction; E66.01 Morbid (severe) obesity due to excess calories; Z99.2 Dependence on renal dialysis; Z79.4 Long term (current) use of insulin; Z66 Do not resuscitate; E87.5 Hyperkalemia; J39.8 Other specified diseases of upper respiratory tract; E78.5 Hyperlipidemia, unspecified; N28.1 Cyst of kidney, acquired; I08.1 Rheumatic disorders of both mitral and tricuspid valves; K21.9 Gastro-esophageal reflux disease without esophagitis; G43.909 Migraine, unspecified, not intractable, without status migrainosus; F41.9 Anxiety disorder, unspecified; R32 Unspecified urinary incontinence; Z68.35 Body mass index [BMI] 35.0-35.9, adult; M19.90 Unspecified osteoarthritis, unspecified site; Z99.81 Dependence on supplemental oxygen; Z79.01 Long term (current) use of anticoagulants; Z79.82 Long term (current) use of aspirin; Z79.899 Other long term (current) drug therapy; Z90.89 Acquired absence of other organs; Z90.49 Acquired absence of other specified parts of digestive tract; Z86.14 Personal history of Methicillin resistant Staphylococcus aureus infection; Z86.73 Personal history of transient ischemic attack (TIA), and cerebral infarction without residual deficits; Z86.718 Personal history of other venous thrombosis and embolism; Z95.0 Presence of cardiac pacemaker; Z87.19 Personal history of other diseases of the digestive system; Z91.81 History of falling; Z87.820 Personal history of traumatic brain injury; Z98.890 Other specified postprocedural states; Z88.8 Allergy status to other drugs, medicaments and biological substances; Z82.49 Family history of ischemic heart disease and other diseases of the circulatory system; Y84.8 Other medical procedures as the cause of abnormal reaction of the patient, or of later complication, without mention of misadventure at the time of the procedure
CPT/HCPCS: 32555; 36558; 36581; 70450; 71045; 71046; 71275; 74018; 74176; 76604; 76937; 77001; 80048; 80053; 80202; 81001; 82565; 83036; 83605; 83735; 84443; 85025; 85027; 85049; 85610; 85730; 86706; 87040; 87070; 87075; 87077; 87086; 87186; 87205; 87340; 90935; 93306; 93308; 94640; 94760; 95816; 99285

== ENCOUNTER 2021-03-11 14:50 | Observation (INO) | payer MEDICARE, OTHER ==
--- NOTE | 2021-03-11 15:44 | ED ---
General Adult HPI - General Chief complaint: Recheck/Abnormal Lab/Rx Stated complaint: pulled out fistula tube Time Seen by Provider: 03/11/21 15:18 Source: patient, EMS, RN notes reviewed, old records reviewed Mode of arrival: EMS Limitations: no limitations, altered mental status - History of Present Illness Initial comments: Patient is a pleasant 75-year-old female presenting to the emergency department with concern for partial remover of her dialysis catheter. Patient is a very poor historian and offers little information. Patient is unclear when and where this was placed. Patient denies any discomfort. Report is that patient may have accidentally pulled out the catheter part of the way. Patient denies any dyspnea. - Related Data Home Medications Medication Instructions Recorded Confirmed Ezetimibe [Zetia] 10 mg PO HS 12/22/17 02/14/21 Midodrine HCl [ProAmatine] 10 mg PO TUTHSA 09/23/19 02/14/21 Magnesium Hydroxide [Milk of 2,400 mg PO Q24H PRN 05/10/20 02/14/21 Magnesia] Ondansetron [Zofran] 4 mg PO Q4H PRN 05/10/20 02/14/21 Renvela Packet 0.8gm 0.8 gm PO ACHS 05/10/20 02/14/21 Mag Hydrox/Aluminum Hyd/Simeth 10 ml PO Q4H PRN 11/22/20 02/14/21 [Mylanta Maximum Strength Liq] Acetaminophen Tab [Tylenol] 650 mg PO TID 02/14/21 02/14/21 Cyanocobalamin (Vitamin B-12) 1,000 mcg PO DAILY 02/14/21 02/14/21 [Vitamin B-12] Insulin Lispro [Insulin Lispro See Protocol SQ ACHS 02/14/21 02/14/21 Kwikpen U-100] Nystatin 1 applic TOPICAL BID 02/14/21 02/14/21 Renal-Melita Tab 0.8mg 1 tab PO DAILY 02/14/21 02/14/21 Previous Rx's Medication Instructions Recorded Albuterol Nebulized [Ventolin 2.5 mg INHALATION RT-QID ml 03/02/21 Nebulized] Calcium Carbonate [Tums] 1,000 mg PO Q4HR PRN chew 03/02/21 Darbepoetin Vu [Aranesp] 40 mcg SQ Q7D syringe 03/02/21 Famotidine [Pepcid] 20 mg PO DAILY tab 03/02/21 Hydrophilic Cream [Triad Cream] 1 applic TOPICAL DAILY applic 03/02/21 INSULIN ASPART (NovoLOG) [NovoLOG 0 unit SQ ACHS vial 03/02/21 (formulary)] Insulin Glargine,Hum.rec.anlog 18 unit SQ DAILY #0 03/02/21 [Basaglar Kwikpen U-100] LORazepam [Ativan] 1 mg PO HS #3 tab 03/02/21 Lactulose [Cephulac] 20 gm PO DAILY PRN ml 03/02/21 Sodium Bicarbonate Tab 650 mg PO TID tab 03/02/21 traMADol HCL [Ultram] 50 mg PO Q6H PRN #12 tab 03/02/21 Allergies Allergy/AdvReac Type Severity Reaction Status Date / Time lisinopril Allergy Itching Verified 02/14/21 13:06 Jqtlosc-Whl-Pou Reductase Allergy Itching Verified 02/14/21 13:06 Inhibitor Review of Systems ROS Statement: Those systems with pertinent positive or pertinent negative responses have been documented in the HPI. ROS Other: All systems not noted in ROS Statement are negative. Constitutional: Denies: fever Eyes: Denies: eye pain ENT: Denies: ear pain Respiratory: Denies: cough Cardiovascular: Denies: chest pain Endocrine: Denies: fatigue Gastrointestinal: Denies: abdominal pain Genitourinary: Denies: dysuria Musculoskeletal: Denies: back pain Skin: Denies: rash Neurological: Denies: weakness Past Medical History Past Medical History: Atrial Fibrillation, Asthma, Heart Failure, CVA/TIA, Diabetes Mellitus, Deep Vein Thrombosis (DVT), GERD/Reflux, Hyperlipidemia, Hypertension, Osteoarthritis (OA), Renal Disease Additional Past Medical History / Comment(s): TIA 2018; HEMODIALYSIS //SATURDAY 06-given ativan prior to dialysis History of Any Multi-Drug Resistant Organisms: MRSA Date of last positivie culture/infection: 05/12/20 MDRO Source:: MRSA URINE Past Surgical History: Adenoidectomy, Appendectomy, Cholecystectomy, Pacemaker, Tonsillectomy Past Anesthesia/Blood Transfusion Reactions: No Reported Reaction Type of Cardiac Device: Permanent Pacemaker Device Placement Date:: 2016 Past Psychological History: Anxiety, Depression Smoking Status: Never smoker Past Alcohol Use History: None Reported Past Drug Use History: None Reported - Past Family History Father Family Medical History: Myocardial Infarction ([place]) Additional Family Medical History / Comment(s): RHEUMATIC FEVER General Exam Limitations: no limitations, altered mental status General appearance: alert, in no apparent distress Head exam: Present: normocephalic Eye exam: Present: normal appearance Neck exam: Present: normal inspection Respiratory exam: Present: normal lung sounds bilaterally Cardiovascular Exam: Present: regular rate, normal rhythm GI/Abdominal exam: Present: soft. Absent: tenderness Extremities exam: Present: other (Dialysis catheter right femoral region. This does appear to be pulled out approximately 5-6 cm. No tenderness. No swelling. No active bleeding.) Neurological exam: Present: alert Psychiatric exam: Present: normal affect, normal mood Skin exam: Present: normal color Course Vital Signs 03/11/21 14:56 Pulse Rate 77 Respiratory 18 Rate Blood Pressure 134/76 O2 Sat by Pulse 97 Oximetry Medical Decision Making - Medical Decision Making Case discussed with Dr. Pearl, who will take patient to [facility] to replace her dialysis catheter. He does request checking potassium level. Disposition Clinical Impression: Displacement of vascular dialysis catheter Disposition: ADMITTED IP TO THIS HOSP Is patient prescribed a controlled substance at d/c from ED?: No Referrals: Jp Brooks MD [Primary Care Provider] - 1-2 days Decision Time: 16:11
[2021-03-11 16:57] LABS: Basophils # (A) 0.1 k/uL (0-0.2); Basophils % (A) 1 %; Eosinophils # (A) 0.2 k/uL (0-0.7); Eosinophils % (A) 3 %; HCT 29.6 % (34.0-46.0); HGB 9.3 gm/dL (11.4-16.0); Hypochromasia Moderate; Lymphocytes # (A) 0.9 k/uL (1.0-4.8); Lymphocytes % (A) 15 %; MCH 34.5 pg (25.0-35.0); MCHC 31.3 g/dL (31.0-37.0); MCV 110.2 fL (80.0-100.0); Macrocytosis Marked; Mean Platelet Volume 7.3; Monocytes # (A) 0.6 k/uL (0-1.0); Monocytes % (A) 10 %; Neutrophils # (A) 3.8 k/uL (1.3-7.7); Neutrophils % (A) 67 %; Platelet Count 198 k/uL (150-450); RBC 2.69 m/uL (3.80-5.40); RDW 15.1 % (11.5-15.5); WBC 5.6 k/uL (3.8-10.6)
[2021-03-11] MEDS ORDERED: LIDOCAINE 1% INJ 10MG/ML (20 ML MDV) SQ ONE ×2 (17:12→17:16)
[2021-03-11] MEDS ORDERED: fentaNYL (PF) 50 MCG/ML 2 ML AMP IV ONE ×2 (17:12→17:20)
[2021-03-11] MEDS: fentaNYL (PF) 50 MCG/ML 2 ML AMP IV ONE ×2 (17:17→17:28)
[2021-03-11] MEDS ORDERED: ALBUTEROL NEBULIZED 2.5 MG/3 ML INHALATION PRN (18:16)
[2021-03-11 18:58] LABS: Albumin 3.2 g/dL (3.5-5.0); Calcium 9.3 mg/dL (8.4-10.2); Total Bilirubin 0.5 mg/dL (0.2-1.3); Total Protein 6.2 g/dL (6.3-8.2)
[2021-03-11] MEDS: ALBUTEROL NEBULIZED 2.5 MG/3 ML INHALATION SCH (19:03)
[2021-03-11 19:05] LABS: Potassium 4.1 mmol/L (3.5-5.1)
--- NOTE | 2021-03-11 20:23 | CONS ---
DATE OF CONSULTATION: 03/11/2021 This is a 75-year-old female known to me. The patient was recently discharged from the hospital. Patient was having dialysis 3 times a week. The patient went for dialysis today, but about 6 inches of the catheter came out. The patient came to the emergency room and the patient was admitted for replacement of the dialysis catheter. She has history of pacemaker on the left side and her right IJ is occluded. MEDICAL HISTORY: She has a history of multiple medical problems, including chronic renal failure, congestive heart failure, coronary artery disease, hypertension. PHYSICAL EXAMINATION: Patient was seen. NECK: Supple. CHEST: A few rhonchi at the lung bases. ABDOMEN: Soft. Femorals are 1+. The patient has a dialysis catheter, right femoral approach. PLAN: Placement of dialysis catheter. Risks and complications discussed. MAYA / GODFREYN: [id number] / MTDD
--- NOTE | 2021-03-11 20:43 | OP ---
OPERATIVE REPORT PREOPERATIVE DIAGNOSIS: Acute on chronic renal failure; 6 inches of the dialysis catheter came out during dialysis. PROCEDURE: Placement of a 44 cm dialysis catheter, right femoral approach. Sedation time 30 minutes. This patient was brought to the computer lab aide. Right groin was prepped and drapes were applied in the usual sterile manner. Two grams of Kefzol was given IV. Lidocaine 1% was infiltrated in the groin area. The catheter was identified and divided. A Glidewire was passed under fluoroscopic control. A tunnel was created. Through the tunnel we brought the 44 cm dialysis catheter. Then the sheath was advanced on the top of the guidewire. The guidewire was removed. Through the sheath we introduced the dialysis catheter. The tip of the catheter was in the inferior vena cava. Flushed with heparin saline and hep-locked and incision was closed with Vicryl. Suture was secured with 3-0 nylon. Dressing was applied. Patient tolerated the procedure well. MMODL / IJN: [id number] /
[2021-03-11] MEDS ORDERED: ALBUTEROL NEBULIZED 2.5 MG/3 ML INHALATION SCH (21:00)
[2021-03-11 21:01] LABS: Glucose,Whole Blood 270 mg/dL (75-99)
[2021-03-11] MEDS: LORazepam 1 MG TAB PO SCH (22:46)
[2021-03-11] MEDS: EZETIMIBE 10 MG TAB PO SCH (22:46)
[2021-03-11] MEDS: SEVELAMER 800 MG TAB PO SCH (22:46)
[2021-03-11] MEDS: ACETAMINOPHEN TAB 325 MG TAB PO SCH (22:46)
[2021-03-11] MEDS: SODIUM BICARBONATE TAB 650 MG TAB PO SCH (22:46)
[2021-03-11] MEDS: INSULIN ASPART (NovoLOG) 100 UNIT/ML VIAL SQ SCH (22:47)
[2021-03-12 00:24] LABS: Prothrombin Time 10.5 sec (9.0-12.0)
[2021-03-12 00:28] LABS: Partial Thromboplastin Time 16.6 sec (22.0-30.0)
[2021-03-12] MEDS: ALBUTEROL NEBULIZED 2.5 MG/3 ML INHALATION SCH ×4 (07:37→19:46)
[2021-03-12 08:10] LABS: Glucose,Whole Blood 161 mg/dL (75-99)
[2021-03-12] MEDS: ACETAMINOPHEN TAB 325 MG TAB PO SCH ×3 (08:10→23:07)
[2021-03-12] MEDS: SEVELAMER 800 MG TAB PO SCH ×4 (08:10→23:07)
[2021-03-12] MEDS: SODIUM BICARBONATE TAB 650 MG TAB PO SCH ×3 (08:10→23:06)
[2021-03-12] MEDS: CYANOCOBALAMIN 500 MCG TAB PO SCH (08:10)
[2021-03-12] MEDS: FOLIC ACID-VIT B COMPLEX-VIT C 1 CAP PO SCH (08:11)
[2021-03-12] MEDS: FAMOTIDINE 20 MG TAB PO SCH (08:11)
[2021-03-12] MEDS: INSULIN ASPART (NovoLOG) 100 UNIT/ML VIAL SQ SCH ×4 (08:11→23:06)
[2021-03-12] MEDS ORDERED: NON FORMULARY DRUG (Cinnamon Bark [Cinnamon] 500 MG Capsule) PO SCH (09:00)
--- NOTE | 2021-03-12 09:35 | P.NPCON ---
History of Present Illness - Reason for Consult end stage renal disease - History of Present Illness Reason for consultation: End-stage renal disease History of present illness: Patient is a 75-year-old female seen in renal consultation for end-stage renal disease. She is maintained on hemodialysis on Saturday schedule. Patient received short treatment yesterday as she pulled out her dialysis catheter partially. New catheter was placed yesterday. Patient's currently resting in bed. She is confused. Hemodynamically she stable. No fever or chills. Patient has a femoral catheter has a permacath was removed due to enterococcus bacteremia. Vital signs are stable. General: The patient appeared well nourished and normally developed. HEENT: Head exam is unremarkable. Neck is without jugular venous distension. LUNGS: Breath sounds decreased. HEART: Rate and Rhythm are regular. ABDOMEN: Soft, no distention. Obese. EXTREMITITES: No edema. Chronic changes noted. Past Medical History Past Medical History: Atrial Fibrillation, Asthma, Heart Failure, CVA/TIA, Diabetes Mellitus, Deep Vein Thrombosis (DVT), GERD/Reflux, Hyperlipidemia, Hypertension, Osteoarthritis (OA), Renal Disease Additional Past Medical History / Comment(s): TIA 2018; HEMODIALYSIS //SATURDAY 0630-given ativan prior to dialysis History of Any Multi-Drug Resistant Organisms: MRSA Date of last positivie culture/infection: 05/12/20 MDRO Source:: MRSA URINE Past Surgical History: Adenoidectomy, Appendectomy, Cholecystectomy, Pacemaker, Tonsillectomy Past Anesthesia/Blood Transfusion Reactions: No Reported Reaction Type of Cardiac Device: Permanent Pacemaker Device Placement Date:: 2016 Past Psychological History: Anxiety, Depression Additional Psychological History / Comment(s): mood disorder; Smoking Status: Never smoker Past Alcohol Use History: None Reported Past Drug Use History: None Reported - Past Family History Father Family Medical History: Myocardial Infarction ([place]) Additional Family Medical History / Comment(s): RHEUMATIC FEVER Medications and Allergies Home Medications Medication Instructions Recorded Confirmed Type Ezetimibe [Zetia] 10 mg PO HS@2100 12/22/17 03/11/21 History Midodrine HCl [ProAmatine] 10 mg PO TUTHSA@0900 09/23/19 03/11/21 History Renvela Packet 0.8gm 0.8 gm PO ACHS@,,05/10/20 03/11/21 History Acetaminophen Tab [Tylenol] 650 mg PO TID@0900,1300,2100 02/14/21 03/11/21 History Cyanocobalamin (Vitamin B-12) 1,000 mcg PO DAILY@0900 02/14/21 03/11/21 History [Vitamin B-12] Renal-Melita Tab 0.8mg 1 tab PO DAILY@0900 02/14/21 03/11/21 History Lactulose [Cephulac] 20 gm PO DAILY PRN ml 03/02/21 03/11/21 Rx traMADol HCL [Ultram] 50 mg PO Q6H PRN #12 tab 03/02/21 03/11/21 Rx Albuterol Nebulized [Ventolin 2.5 mg INHALATION 03/11/21 03/11/21 History Nebulized] RT-QID@,, Cinnamon Bark [Cinnamon] 1,000 mg PO DAILY@0900 03/11/21 03/11/21 History Famotidine [Pepcid] 20 mg PO DAILY@0903/11/21 03/11/21 History Insulin Glargine,Hum.rec.anlog 18 unit SQ DAILY@1700 03/11/21 03/11/21 History [Semglee Pen] LORazepam [Ativan] 1 mg PO HS@209903/11/21 03/11/21 History Sodium Bicarbonate Tab 650 mg PO TID@0900,1700,2100 03/11/21 03/11/21 History Allergies Allergy/AdvReac Type Severity Reaction Status Date / Time lisinopril Allergy Itching Verified 02/14/21 13:06 [id number]-Fed-[id number] Reductase Allergy Itching Verified 02/14/21 13:06 Inhibitor Physical Exam Vitals: Vital Signs Temp Pulse Pulse Resp BP BP Pulse Ox 03/12/21 07:48 73 03/12/21 07:38 69 03/12/21 07:00 98.3 F 74 18 109/57 100 03/12/21 01:51 97.7 F 63 17 107/68 96 03/11/21 20:01 97.7 F 90 18 97/62 94 L 03/11/21 19:10 88 03/11/21 19:05 67 03/11/21 17:53 97.7 F 67 16 110/62 96 03/11/21 14:56 77 18 134/76 97 Intake and Output 03/11/21 03/12/21 03/12/21 22:59 06:59 14:59 Other: Voiding Method Diaper Diaper Weight 104.326 kg Results - Lab Results Most recent lab results Calcium 9.3 mg/dL (8.4-10.2) 03/11/21 18:15 03/11/21 16:50 03/11/21 18:15 Assessment and Plan Plan: Assessment: 1. End-stage renal disease maintained on hemodialysis on Saturday schedule via femoral catheter. 2. Dislodged femoral catheter. New catheter placed March 11. 3. Recent enterococcus bacteremia with removal of permacath. 4. Diabetes mellitus. 5. Chronic any disease mineral bone disease maintained on Renvela. 6. Anemia of chronic kidney disease. Plan: Short hemodialysis treatment today. Add Aranesp. Possible discharge back to [facility] after dialysis today. Thank you for the consultation. I will continue to follow the patient with you during her hospital stay.
[2021-03-12] MEDS ORDERED: DARBEPOETIN ALFA 40 MCG/0.4 ML SYRINGE SQ SCH (10:00)
[2021-03-12 11:44] LABS: Glucose,Whole Blood 180 mg/dL (75-99)
[2021-03-12] MEDS ORDERED: LACTULOSE 20 GM/30 ML CUP PO PRN (15:48)
--- NOTE | 2021-03-12 15:48 | P.HPIM ---
History of Present Illness H&P Date: 03/12/21 Chief Complaint: Dialysis catheter came loose History of presenting complaint: This is a 75-year-old patient is@[facility]. . Chronic stable medical conditions include CHF, end-stage kidney disease on hemodialysis TTS, atrial fibrillation, permanent pacemaker, GERD. COPD. Not too long ago was at [facility] following a head trauma.. At her baseline patient is AO 2. Patient was transferred to [facility] as patient had become a bit c onfused. Normally on 4 L of oxygen Recently admitted to the hospital from February 14 through March 02. Presented with short of breath. Blood cultures positive for Enterococcus faecalis. Pericardiocentesis done with 3 00 cc of bloody fluid removed. Pigtail catheter placed. Hemodialysis catheter removed because of infection. February 25: 1400 mL of turbid, colored left thoracentesis. February 26: right groin hemodialysis catheter placed. Patient is cared for Bennie Chávez who is the POA. When patient was discharged patient not doing too well. She was discharged with the understanding if she does not improve or goes downhill then she'll proceed towards hospice. Patient had been made DO NOT RESUSCITATE This presentation: Patient is getting dialyzed and the femoral dialysis catheter got dislodged. Dialysis could not be completed. Patient presented to ER. Dr. Pearl, placed a dialysis cath in the right femoral. Patient has somewhat able to give much of a history except for yes and no. Patient getting dialyzed this morning. Review of systems: GEN.: Tired EYES: None HEENT: None NECK: None RESPIRATORY: None CARDIOVASCULAR: None GASTROINTESTINAL: None GENITOURINARY: None MUSCULOSKELETAL: Joint pains LYMPHATICS: None HEMATOLOGICAL: None PSYCHIATRY: Forgetful NEUROLOGICAL: None Past medical history to include: Atrial fibrillation, asthma, CHF, diabetes, DVT, GERD, hypertension, hyperlipidemia, osteomyelitis discitis, end-stage kidney disease with hemodialysis, TIA, permanent pacemaker, . Oxygen 4-4 L Social history: No history of smoking or alcohol. Currently at [facility] Family history: Rheumatic fever, [place] Physical examination: VITAL SIGNS: 98.3, 74, 18, 109/57, 100% room air GENERAL: BMI 38.3, laying in bed, awake, tired EYES: Pupils equal. Conjunctiva normal. HEENT: External appearance of nose and ears normal, oral cavity grossly normal. NECK: JVD unable to assess; masses not palpable. HEART: First and second heart sounds are normal; some edema. LUNGS:[ Respiratory rate normal, diminished breath sounds. ABDOMEN: Soft, nontender, liver spleen not palpable, no masses palpable. Right groin hemodialysis catheter PSYCH: She'll answer occasional question. NEUROLOGICAL: Cranial nerves grossly intact; no facial asymmetry, power and sensation grossly intact. LYMPHATICS: No lymph nodes palpable in the axilla and neck INVESTIGATIONS, reviewed in the clinical context: WBC 5.6 hemoglobin 9.3 platelets 198 potassium 4.1 BUN 24 creatinine 2.85 Assessment and plan: -Malfunction of dialysis catheter Right femoral catheter dislodged. Hemodialysis catheter placed by Dr. Sharpe on March 11 -Bacteremia Enterococcus faecalis. From hemodialysis catheter. Vancomycin. Hemodialysis catheter removed. Repeat blood culture from February 19 negative. Vancomycin with hemodialysis for next 2 weeks since March 02 -End-stage kidney disease on hemodialysis, TTS Hemodialysis . -Persistent atrial flutter fibrillation Continue eliquis -Diabetes mellitus type 2, chronically on insulin Follow Accu-Cheks. -Chronic hypotension Patient is on midodrine -Chronic medical debility -Underlying cognitive impairment -Permanent pacemaker -DO NOT RESUSCITATE -Kamar JORDAN Bhavin Patient getting hemodialysis today. Nephrology was consulted. Home medications resumed. Follow Accu-Cheks. She will return to the [facility] tomorrow. Past Medical History Past Medical History: Atrial Fibrillation, Asthma, Heart Failure, CVA/TIA, Diabetes Mellitus, Deep Vein Thrombosis (DVT), GERD/Reflux, Hyperlipidemia, Hypertension, Osteoarthritis (OA), Renal Disease Additional Past Medical History / Comment(s): TIA 2018; HEMODIALYSIS //SATURDAY 0630-given ativan prior to dialysis History of Any Multi-Drug Resistant Organisms: MRSA Date of last positivie culture/infection: 05/12/20 MDRO Source:: MRSA URINE Past Surgical History: Adenoidectomy, Appendectomy, Cholecystectomy, Pacemaker, Tonsillectomy Past Anesthesia/Blood Transfusion Reactions: No Reported Reaction Type of Cardiac Device: Permanent Pacemaker Device Placement Date:: 2016 Past Psychological History: Anxiety, Depression Additional Psychological History / Comment(s): mood disorder; Smoking Status: Never smoker Past Alcohol Use History: None Reported Past Drug Use History: None Reported - Past Family History Father Family Medical History: Myocardial Infarction ([place]) Additional Family Medical History / Comment(s): RHEUMATIC FEVER Medications and Allergies Home Medications Medication Instructions Recorded Confirmed Type Ezetimibe [Zetia] 10 mg PO HS@209912/22/17 03/11/21 History Midodrine HCl [ProAmatine] 10 mg PO TUTHSA@0900 09/23/19 03/11/21 History Renvela Packet 0.8gm 0.8 gm PO ACHS@,,,05/10/20 03/11/21 History Acetaminophen Tab [Tylenol] 650 mg PO TID@0900,1300,209902/14/21 03/11/21 History Cyanocobalamin (Vitamin B-12) 1,000 mcg PO DAILY@0902/14/21 03/11/21 History [Vitamin B-12] Renal-Melita Tab 0.8mg 1 tab PO DAILY@0900 02/14/21 03/11/21 History Lactulose [Cephulac] 20 gm PO DAILY PRN ml 03/02/21 03/11/21 Rx traMADol HCL [Ultram] 50 mg PO Q6H PRN #12 tab 03/02/21 03/11/21 Rx Albuterol Nebulized [Ventolin 2.5 mg INHALATION 03/11/21 03/11/21 History Nebulized] RT-QID@,, Cinnamon Bark [Cinnamon] 1,000 mg PO DAILY@0900 03/11/21 03/11/21 History Famotidine [Pepcid] 20 mg PO DAILY@0900 03/11/21 03/11/21 History Insulin Glargine,Hum.rec.anlog 18 unit SQ DAILY@1700 03/11/21 03/11/21 History [Semglee Pen] LORazepam [Ativan] 1 mg PO HS@209903/11/21 03/11/21 History Sodium Bicarbonate Tab 650 mg PO TID@0900,1700,209903/11/21 03/11/21 History Allergies Allergy/AdvReac Type Severity Reaction Status Date / Time lisinopril Allergy Itching Verified 02/14/21 13:06 Utmwwux-Xbz-Vcf Reductase Allergy Itching Verified 02/14/21 13:06 Inhibitor Physical Exam Vitals: Vital Signs Temp Pulse Pulse Resp BP BP Pulse Ox 03/12/21 07:48 73 03/12/21 07:38 69 03/12/21 07:00 98.3 F 74 18 109/57 100 03/12/21 01:51 97.7 F 63 17 107/68 96 03/11/21 20:01 97.7 F 90 18 97/62 94 L 03/11/21 19:10 88 03/11/21 19:05 67 03/11/21 17:53 97.7 F 67 16 110/62 96 03/11/21 14:56 77 18 134/76 97 Intake and Output 03/11/21 03/12/21 03/12/21 22:59 06:59 14:59 Other: Voiding Method Diaper Diaper Weight 104.326 kg Results CBC & Chem 7: 03/11/21 16:50 03/11/21 18:15 Labs: Abnormal Lab Results - Last 24 Hours (Table) 03/11/21 03/11/21 03/11/21 Range/Units 16:50 18:15 20:59 RBC 2.69 L (3.80-5.40) m/uL Hgb 9.3 L (11.4-16.0) gm/dL Hct 29.6 L (34.0-46.0) % MCV 110.2 H (80.0-100.0) fL Lymphocytes # 0.9 L (1.0-4.8) k/uL Macrocytosis Marked A APTT (22.0-30.0) sec Sodium 133 L (137-145) mmol/L Chloride 97 L (98-107) mmol/L BUN 24 H (7-17) mg/dL Creatinine 2.85 H (0.52-1.04) mg/dL Glucose 222 H (74-99) mg/dL POC Glucose (mg/dL) 270 H (75-99) mg/dL Alkaline Phosphatase 140 H (38-126) U/L Total Protein 6.2 L (6.3-8.2) g/dL Albumin 3.2 L (3.5-5.0) g/dL 03/11/21 03/12/21 Range/Units 23:37 08:09 RBC (3.80-5.40) m/uL Hgb (11.4-16.0) gm/dL Hct (34.0-46.0) % MCV (80.0-100.0) fL Lymphocytes # (1.0-4.8) k/uL Macrocytosis APTT 16.6 L (22.0-30.0) sec Sodium (137-145) mmol/L Chloride (98-107) mmol/L BUN (7-17) mg/dL Creatinine (0.52-1.04) mg/dL Glucose (74-99) mg/dL POC Glucose (mg/dL) 161 H (75-99) mg/dL Alkaline Phosphatase (38-126) U/L Total Protein (6.3-8.2) g/dL Albumin (3.5-5.0) g/dL Thrombosis Risk Factor Assmnt - Choose All That Apply Any of the Below Risk Factors Present?: Yes Each Factor Represents 1 point: Obesity (BMI >25) Other Risk Factors: Yes Each Risk Factor Represents 2 Points: Age 61-74 years Other congenital or acquired thrombophilia - If yes, enter type in comment: Yes Thrombosis Risk Factor Assessment Total Risk Factor Score: 3 Thrombosis Risk Factor Assessment Level: Moderate Risk
[2021-03-12] MEDS ORDERED: INSULIN DETEMIR (LEVEMIR) 100 UNIT/ML SYR SQ SCH (17:00)
[2021-03-12 17:35] LABS: Glucose,Whole Blood 273 mg/dL (75-99)
[2021-03-12] MEDS: traMADol 50 MG TAB PO PRN ×2 (17:50→23:07)
[2021-03-12 21:05] LABS: Glucose,Whole Blood 200 mg/dL (75-99)
[2021-03-12] MEDS: EZETIMIBE 10 MG TAB PO SCH (23:06)
[2021-03-12] MEDS: LORazepam 1 MG TAB PO SCH (23:07)
[2021-03-13 07:36] VITALS: BP 131/85; RESP 17; TEMP 97.4
[2021-03-13 08:16] LABS: Glucose,Whole Blood 91 mg/dL (75-99)
[2021-03-13] MEDS: INSULIN ASPART (NovoLOG) 100 UNIT/ML VIAL SQ SCH ×2 (08:20→12:20)
[2021-03-13] MEDS: SODIUM BICARBONATE TAB 650 MG TAB PO SCH (08:32)
[2021-03-13] MEDS: FAMOTIDINE 20 MG TAB PO SCH (08:32)
[2021-03-13] MEDS: CYANOCOBALAMIN 500 MCG TAB PO SCH (08:32)
[2021-03-13] MEDS: SEVELAMER 800 MG TAB PO SCH ×2 (08:33→12:20)
[2021-03-13] MEDS: ACETAMINOPHEN TAB 325 MG TAB PO SCH ×2 (08:33→12:20)
[2021-03-13] MEDS: FOLIC ACID-VIT B COMPLEX-VIT C 1 CAP PO SCH (08:36)
[2021-03-13] MEDS: ALBUTEROL NEBULIZED 2.5 MG/3 ML INHALATION SCH ×2 (09:08→12:24)
[2021-03-13] MEDS: traMADol 50 MG TAB PO PRN (09:34)
--- NOTE | 2021-03-13 09:36 | P.PN ---
Subjective Patient is seen in follow-up for end-stage renal disease. She is maintained hemodialysis on Saturday schedule. Patient is not a reliable historian. No problems with dialysis yesterday. Vital signs are stable. General: The patient appeared well nourished and normally developed. HEENT: Head exam is unremarkable. Neck is without jugular venous distension. LUNGS: Breath sounds decreased. HEART: Rate and Rhythm are regular. ABDOMEN: Soft, no distention. Obese. EXTREMITITES: Chronic changes noted. No edema. Objective - Vital Signs Vital signs: Vital Signs Temp 97.4 F L 03/13/21 07:00 Pulse 88 03/13/21 09:18 Resp 17 03/13/21 07:00 BP 131/85 03/13/21 07:00 Pulse Ox 97 03/13/21 07:00 Intake & Output 03/12/21 03/13/21 03/13/21 18:59 06:59 18:59 Output Total 1000 Balance -1000 Output: Hemodialysis 1000 Other: Voiding Method Diaper Diaper # Voids 0 - Labs CBC & Chem 7: 03/11/21 16:50 03/11/21 18:15 Labs: Abnormal Lab Results - Last 24 Hours (Table) 03/12/21 03/12/21 03/12/21 Range/Units 11:42 17:34 21:02 POC Glucose (mg/dL) 180 H 273 H 200 H (75-99) mg/dL Assessment and Plan Plan: Assessment: 1. End-stage renal disease maintained on hemodialysis on Saturday schedule via femoral catheter. 2. Dislodged femoral catheter. New catheter placed March 11. 3. Recent enterococcus bacteremia with removal of permacath. 4. Diabetes mellitus. 5. Chronic any disease mineral bone disease maintained on Renvela. 6. Anemia of chronic kidney disease maintained on Aranesp. Plan: Hemodialysis tomorrow.
[2021-03-13 11:39] LABS: Glucose,Whole Blood 181 mg/dL (75-99)
--- NOTE | 2021-03-13 13:28 | P.DS ---
Providers Date of admission: 03/11/21 16:54 Expected date of discharge: 03/13/21 Attending physician: Cortez Harman Consults: 03/11/21 18:11 Consult Physician Routine Consulting Provider: Julieta Luevano Consult Reason/Comments: dialysis patient/needs dialysis? Do you want consulting provider notified?: Yes Primary care physician: Jp Brooks [facility] Course: Chief Complaint: Dialysis catheter came loose History of presenting complaint: This is a 75-year-old patient is@[facility]. . Chronic stable medical conditions include CHF, end-stage kidney disease on hemodialysis TTS, atrial fibrillation, permanent pacemaker, GERD. COPD. Not too long ago was at [facility] following a head trauma.. At her baseline patient is AO 2. Patient was transferred to [facility] as patient had become a bit confused. Normally on 4 L of oxygen Recently admitted to the hospital from February 14 through March 02. Presented with short of breath. Blood cultures positive for Enterococcus faecalis. Pericardiocentesis done with 3 00 cc of bloody fluid removed. Pigtail catheter placed. Hemodialysis catheter removed because of infection. February 25: 1400 mL of turbid, colored left thoracentesis. February 26: right groin hemodialysis catheter placed. Patient is cared for Bennie Chávez who is the POA. When patient was discharged patient not doing too well. She was discharged with the understanding if she does not improve or goes downhill then she'll proceed towards hospice. Patient had been made DO NOT RESUSCITATE This presentation: Patient is getting dialyzed and the femoral dialysis catheter got dislodged. Dialysis could not be completed. Patient presented to ER. Dr. Pearl, placed a dialysis cath in the right femoral. Patient has somewhat able to give much of a history except for yes and no. Patient getting dialyzed this morning. March 13: Laying in bed. Comfortable. Oral intake good. Was dialyzed ye sterday. Stable from nephrology standpoint to be discharged back to the [facility]. Consultation: Dr. Pearl from vascular Dr. Helton from nephrology Past medical history to include: Atrial fibrillation, asthma, CHF, diabetes, DVT, GERD, hypertension, hyperlipidemia, osteomyelitis discitis, end-stage kidney disease with hemodialysis, TIA, permanent pacemaker, . Oxygen 4-4 L Social history: No history of smoking or alcohol. Currently at [facility] Family history: Rheumatic fever, [place] Physical examination: VITAL SIGNS: 97.4, 84, 17, 131/85, 97% room air GENERAL: BMI 38.3, laying in bed, awake, comfortable EYES: Pupils equal. Conjunctiva normal. HEENT: External appearance of nose and ears normal, oral cavity grossly normal. Forehead scar from previous healing well NECK: JVD unable to assess; masses not palpable. HEART: First and second heart sounds are normal; some edema. LUNGS:[ Respiratory rate normal, diminished breath sounds. ABDOMEN: Soft, nontender, liver spleen not palpable, no masses palpable. Right groin hemodialysis catheter PSYCH: She'll answer occasional question. NEUROLOGICAL: Cranial nerves grossly intact; no facial asymmetry, power and sensation grossly intact. INVESTIGATIONS, reviewed in the clinical context: WBC 5.6 hemoglobin 9.3 platelets 198 potassium 4.1 BUN 24 creatinine 2.85 Assessment and plan: -Malfunction of dialysis catheter Right femoral catheter dislodged. Hemodialysis catheter placed by Dr. Sharpe on March 11. Functioning well -Bacteremia Enterococcus faecalis. From hemodialysis catheter. Vancomycin. Hemodialysis catheter removed. Repeat blood culture from February 19 negative. Vancomycin with hemodialysis for next 2 weeks since March 02 -End-stage kidney disease on hemodialysis, TTS Hemodialysis . -Persistent atrial flutter fibrillation Continue eliquis -Diabetes mellitus type 2, chronically on insulin Follow Accu-Cheks. -Chronic hypotension Patient is on midodrine -Chronic medical debility -Underlying cognitive impairment -Permanent pacemaker -DO NOT RESUSCITATE -Kamar JORDAN Disposition: [facility] Plan - Discharge Summary Discharge Rx Participant: No New Discharge Prescriptions: New Darbepoetin Vu [Aranesp] 40 mcg SQ Q7D syringe INSULIN ASPART (NovoLOG) [NovoLOG (formulary)] 0 unit SQ ACHS vial Continue Ezetimibe [Zetia] 10 mg PO HS@2100 Midodrine HCl [ProAmatine] 10 mg PO TUTHSA@0900 Renvela Packet 0.8gm 0.8 gm PO ACHS@09,11,16,21 Acetaminophen Tab [Tylenol] 650 mg PO TID@0900,1300,2100 Lactulose [Cephulac] 20 gm PO DAILY PRN ml PRN Reason: Constipation traMADol HCL [Ultram] 50 mg PO Q6H PRN #12 tab PRN Reason: Pain Famotidine [Pepcid] 20 mg PO DAILY@0900 LORazepam [Ativan] 1 mg PO HS@2099 Albuterol Nebulized [Ventolin Nebulized] 2.5 mg INHALATION RT-QID@,,, Renal-Melita Tab 0.8mg 1 tab PO DAILY@0900 Cyanocobalamin (Vitamin B-12) [Vitamin B-12] 1,000 mcg PO DAILY@0900 Cinnamon Bark [Cinnamon] 1,000 mg PO DAILY@0900 Insulin Glargine,Hum.rec.anlog [Semglee Pen] 18 unit SQ DAILY@1700 Sodium Bicarbonate Tab 650 mg PO TID@0900,1700,2100 Discharge Medication List Ezetimibe [Zetia] 10 mg PO HS@209912/22/17 [History] Midodrine HCl [ProAmatine] 10 mg PO TUTHSA@0900 09/23/19 [History] Renvela Packet 0.8gm 0.8 gm PO ACHS@,,16,05/10/20 [History] Acetaminophen Tab [Tylenol] 650 mg PO TID@0900,1300,2100 02/14/21 [History] Cyanocobalamin (Vitamin B-12) [Vitamin B-12] 1,000 mcg PO DAILY@0902/14/21 [History] Renal-Melita Tab 0.8mg 1 tab PO DAILY@0902/14/21 [History] Lactulose [Cephulac] 20 gm PO DAILY PRN ml 03/02/21 [Rx] traMADol HCL [Ultram] 50 mg PO Q6H PRN #12 tab 03/02/21 [Rx] Albuterol Nebulized [Ventolin Nebulized] 2.5 mg INHALATION RT-QID@,,,03/11/21 [History] Cinnamon Bark [Cinnamon] 1,000 mg PO DAILY@0903/11/21 [History] Famotidine [Pepcid] 20 mg PO DAILY@0903/11/21 [History] Insulin Glargine,Hum.rec.anlog [Semglee Pen] 18 unit SQ DAILY@1700 03/11/21 [History] LORazepam [Ativan] 1 mg PO HS@209903/11/21 [History] Sodium Bicarbonate Tab 650 mg PO TID@0900,1700,2100 03/11/21 [History] Darbepoetin Vu [Aranesp] 40 mcg SQ Q7D syringe 03/13/21 [Rx] INSULIN ASPART (NovoLOG) [NovoLOG (formulary)] 0 unit SQ ACHS vial 03/13/21 [Rx] Follow up Appointment(s)/Referral(s): Jp Brooks MD [Primary Care Provider] - 1-2 days Patient Instructions/Handouts: Acute Abdominal Pain (GEN), Hemodialysis (GEN)
[2021-03-13 15:03] VITALS: PULSE 84
--- NOTE | 2021-03-14 06:45 | IR ---
EXAMINATION TYPE: IR cvc insert central tunneled DATE OF EXAM: 03/11/2021 CLINICAL HISTORY: Dialysis catheter malfunction TECHNIQUE: Fluoroscopy. COMPARISON: None. FINDINGS: Fluoroscopic guidance was provided during right femoral dialysis catheter insertion proced ure performed by Dr. Pearl. A total of 36 seconds of fluoroscopic time was utilized during the pro cedure and 135 spot images was acquired. Intraoperative images show placement of catheter at right gr oin level. IMPRESSION: As Above.
[2021-03-14] MEDS ORDERED: MIDODRINE 5 MG TAB PO SCH (09:00)
== END 2021-03-13 14:30 | disposition other institution (70) ==
LOC: EC 14:50 → 6NMEDSUR 16:54
PROVIDERS: ADMIT Hospitalist; ATTEND Hospitalist
DX: T82.41XA Breakdown (mechanical) of vascular dialysis catheter, initial encounter (principal); Y71.2 Prosthetic and other implants, materials and accessory cardiovascular devices associated with adverse incidents; R78.81 Bacteremia; B95.2 Enterococcus as the cause of diseases classified elsewhere; N18.6 End stage renal disease; E11.22 Type 2 diabetes mellitus with diabetic chronic kidney disease; I13.2 Hypertensive heart and chronic kidney disease with heart failure and with stage 5 chronic kidney disease, or end stage renal disease; I25.10 Atherosclerotic heart disease of native coronary artery without angina pectoris; I48.21 Permanent atrial fibrillation; I48.92 Unspecified atrial flutter; I50.9 Heart failure, unspecified; F41.9 Anxiety disorder, unspecified; F32.9 Major depressive disorder, single episode, unspecified; J44.9 Chronic obstructive pulmonary disease, unspecified; K21.9 Gastro-esophageal reflux disease without esophagitis; M89.8X9 Other specified disorders of bone, unspecified site; E78.5 Hyperlipidemia, unspecified; D63.1 Anemia in chronic kidney disease; J45.909 Unspecified asthma, uncomplicated; E66.9 Obesity, unspecified; Z68.38 Body mass index [BMI] 38.0-38.9, adult; I95.89 Other hypotension; F39 Unspecified mood [affective] disorder; M19.90 Unspecified osteoarthritis, unspecified site; Z86.14 Personal history of Methicillin resistant Staphylococcus aureus infection; R41.89 Other symptoms and signs involving cognitive functions and awareness; Z79.01 Long term (current) use of anticoagulants; Z79.4 Long term (current) use of insulin; Z79.899 Other long term (current) drug therapy; Z88.8 Allergy status to other drugs, medicaments and biological substances; Z66 Do not resuscitate; Z95.0 Presence of cardiac pacemaker; Z99.2 Dependence on renal dialysis; Z86.73 Personal history of transient ischemic attack (TIA), and cerebral infarction without residual deficits; Z90.49 Acquired absence of other specified parts of digestive tract; Z82.49 Family history of ischemic heart disease and other diseases of the circulatory system; Z82.69 Family history of other diseases of the musculoskeletal system and connective tissue
CPT/HCPCS: 36581; 99285; 36415; 94640 ×5; 80053; 85025; 85610; 85730; G0257; G0378 ×3; C1750; C1769 ×2; J0690; J2001; J3010; J0881; 90935

== ENCOUNTER 2021-03-17 14:04 | Inpatient (IN) | payer MEDICARE, OTHER ==
--- NOTE | 2021-03-17 14:52 | ED ---
General Adult HPI - General Chief complaint: Weakness Stated complaint: Dialysis catheter problem Time Seen by Provider: 03/17/21 14:18 Source: patient, RN notes reviewed, old records reviewed Mode of arrival: wheelchair Limitations: altered mental status, physical limitation - History of Present Illness Initial comments: Patient is a pleasant 75-year-old female presenting to the emergency department with concern for needing exchange of her dialysis catheter. Patient is a poor historian and provides no significant history. Patient has no specific complaints. No further complaints reported. - Related Data Home Medications Medication Instructions Recorded Confirmed Ezetimibe [Zetia] 10 mg PO HS@209912/22/17 03/17/21 Midodrine HCl [ProAmatine] 10 mg PO TUTHSA@0900 09/23/19 03/17/21 Renvela Packet 0.8gm 0.8 gm PO ACHS@06,11,,05/10/20 03/17/21 Acetaminophen Tab [Tylenol] 650 mg PO TID@0900,1300,209902/14/21 03/17/21 Cyanocobalamin (Vitamin B-12) 1,000 mcg PO DAILY@0902/14/21 03/17/21 [Vitamin B-12] Renal-Melita Tab 0.8mg 1 tab PO DAILY@0902/14/21 03/17/21 Albuterol Nebulized [Ventolin 2.5 mg INHALATION 03/11/21 03/17/21 Nebulized] RT-QID@04,10,1600,22 Cinnamon Bark [Cinnamon] 2,000 mg PO DAILY@0903/11/21 03/17/21 Famotidine [Pepcid] 20 mg PO DAILY@0900 03/11/21 03/17/21 Insulin Glargine,Hum.rec.anlog 18 unit SQ DAILY@1700 03/11/21 03/17/21 [Semglee Pen] LORazepam [Ativan] 1 mg PO HS@209903/11/21 03/17/21 Sodium Bicarbonate Tab 650 mg PO TID@0900,1700,209903/11/21 03/17/21 Apixaban [Eliquis] 2.5 mg PO BID@0900,1700 03/17/21 03/17/21 LORazepam [Ativan] 0.25 mg PO BID PRN 03/17/21 03/17/21 Nepro 240 ml PO DAILY@1400 03/17/21 03/17/21 traMADol HCL 50 mg PO BID PRN 03/17/21 03/17/21 traMADol HCL [Ultram] 50 mg PO BID@0900,2100 03/17/21 03/17/21 Previous Rx's Medication Instructions Recorded Lactulose [Cephulac] 20 gm PO DAILY PRN ml 03/02/21 Allergies Allergy/AdvReac Type Severity Reaction Status Date / Time lisinopril Allergy Itching Verified 03/17/21 14:55 Nhpsoye-Csg-Vxd Reductase Allergy Itching Verified 03/17/21 14:55 Inhibitor Review of Systems ROS Statement: Those systems with pertinent positive or pertinent negative responses have been documented in the HPI. ROS Other: All systems not noted in ROS Statement are negative. Limitations: ROS unobtainable due to patients medical condition Past Medical History Past Medical History: Atrial Fibrillation, Asthma, Heart Failure, CVA/TIA, Diabetes Mellitus, Deep Vein Thrombosis (DVT), GERD/Reflux, Hyperlipidemia, Hypertension, Osteoarthritis (OA), Renal Disease Additional Past Medical History / Comment(s): TIA 2018; HEMODIALYSIS Sat//SATURDAY 0630-given ativan prior to dialysis History of Any Multi-Drug Resistant Organisms: MRSA Date of last positivie culture/infection: 05/12/20 MDRO Source:: MRSA URINE Past Surgical History: Adenoidectomy, Appendectomy, Cholecystectomy, Pacemaker, Tonsillectomy Past Anesthesia/Blood Transfusion Reactions: No Reported Reaction Type of Cardiac Device: Permanent Pacemaker Device Placement Date:: 2016 Past Psychological History: Anxiety, Depression Smoking Status: Never smoker Past Alcohol Use History: None Reported Past Drug Use History: None Reported - Past Family History Father Family Medical History: Myocardial Infarction ([place]) Additional Family Medical History / Comment(s): RHEUMATIC FEVER General Exam Limitations: altered mental status, physical limitation General appearance: alert, in no apparent distress Head exam: Present: other (Frontal incision clean and dry and intact) Eye exam: Present: normal appearance, PERRL, EOMI ENT exam: Present: normal oropharynx Neck exam: Present: normal inspection Respiratory exam: Present: normal lung sounds bilaterally Cardiovascular Exam: Present: regular rate, normal rhythm GI/Abdominal exam: Present: soft. Absent: tenderness Extremities exam: Present: normal inspection Neurological exam: Present: alert, altered Psychiatric exam: Present: flat affect Skin exam: Present: normal color Course Vital Signs 03/17/21 14:08 Temperature 98.4 F Pulse Rate 64 Respiratory 20 Rate Blood Pressure 86/43 O2 Sat by Pulse 100 Oximetry Medical Decision Making - Medical Decision Making Case was discussed with Dr. Pearl who is aware of this patient and knows she will need admission with dialysis catheter change again. He states he will do this in the morning with the Chart Changer. Case also discussed with Dr. Harman, who will admit covering Dr. Brooks. Nephrology will be placed on consult. - Lab Data Result diagrams: 03/17/21 15:28 03/17/21 15:28 Lab Results 03/17/21 03/17/21 03/17/21 Range/Units 15:28 15:28 15:28 WBC 12.2 H (3.8-10.6) k/uL RBC 2.44 L (3.80-5.40) m/uL Hgb 8.3 L (11.4-16.0) gm/dL Hct 27.3 L (34.0-46.0) % MCV 111.9 H (80.0-100.0) fL MCH 34.1 (25.0-35.0) pg MCHC 30.5 L (31.0-37.0) g/dL RDW 15.2 (11.5-15.5) % Plt Count 246 (150-450) k/uL MPV 8.6 Neutrophils % 83 % Lymphocytes % 9 % Monocytes % 5 % Eosinophils % 0 % Basophils % 1 % Neutrophils # 10.1 H (1.3-7.7) k/uL Lymphocytes # 1.1 (1.0-4.8) k/uL Monocytes # 0.6 (0-1.0) k/uL Eosinophils # 0.1 (0-0.7) k/uL Basophils # 0.1 (0-0.2) k/uL Hypochromasia Marked Macrocytosis Marked A PT 10.7 (9.0-12.0) sec INR 1.0 (<1.2) APTT 24.7 (22.0-30.0) sec Sodium 133 L (137-145) mmol/L Potassium 4.7 (3.5-5.1) mmol/L Chloride 96 L (98-107) mmol/L Carbon Dioxide 26 (22-30) mmol/L Anion Gap 11 mmol/L BUN 37 H (7-17) mg/dL Creatinine 4.97 H (0.52-1.04) mg/dL Est GFR (CKD-EPI)AfAm 9 (>60 ml/min/1.73 sqM) Est GFR (CKD-EPI)NonAf 8 (>60 ml/min/1.73 sqM) Glucose 270 H (74-99) mg/dL Calcium 9.7 (8.4-10.2) mg/dL Total Bilirubin 0.3 (0.2-1.3) mg/dL AST 19 (14-36) U/L ALT 11 (4-34) U/L Alkaline Phosphatase 112 (38-126) U/L Total Protein 5.9 L (6.3-8.2) g/dL Albumin 3.1 L (3.5-5.0) g/dL Disposition Clinical Impression: Dialysis catheter clot or failure Disposition: ADMITTED IP TO THIS HOSP Is patient prescribed a controlled substance at d/c from ED?: No Referrals: Jp Brooks MD [Primary Care Provider] - 1-2 days
[2021-03-17] MEDS ORDERED: NALOXONE 0.4 MG/ML 1 ML VIAL IV PRN (15:13)
[2021-03-17 15:44] LABS: Basophils # (A) 0.1 k/uL (0-0.2); Basophils % (A) 1 %; Eosinophils # (A) 0.1 k/uL (0-0.7); Eosinophils % (A) 0 %; HCT 27.3 % (34.0-46.0); HGB 8.3 gm/dL (11.4-16.0); Hypochromasia Marked; Lymphocytes # (A) 1.1 k/uL (1.0-4.8); Lymphocytes % (A) 9 %; MCH 34.1 pg (25.0-35.0); MCHC 30.5 g/dL (31.0-37.0); MCV 111.9 fL (80.0-100.0); Macrocytosis Marked; Mean Platelet Volume 8.6; Monocytes # (A) 0.6 k/uL (0-1.0); Monocytes % (A) 5 %; Neutrophils # (A) 10.1 k/uL (1.3-7.7); Neutrophils % (A) 83 %; Platelet Count 246 k/uL (150-450); RBC 2.44 m/uL (3.80-5.40); RDW 15.2 % (11.5-15.5); WBC 12.2 k/uL (3.8-10.6)
[2021-03-17 15:54] LABS: Albumin 3.1 g/dL (3.5-5.0); Calcium 9.7 mg/dL (8.4-10.2); Partial Thromboplastin Time 24.7 sec (22.0-30.0); Prothrombin Time 10.7 sec (9.0-12.0); Total Bilirubin 0.3 mg/dL (0.2-1.3); Total Protein 5.9 g/dL (6.3-8.2)
[2021-03-17 15:55] LABS: Potassium 4.7 mmol/L (3.5-5.1)
[2021-03-17] MEDS ORDERED: LORazepam 0.5 MG TAB PO PRN (19:47)
[2021-03-17] MEDS ORDERED: traMADol 50 MG TAB PO PRN (19:47)
[2021-03-17] MEDS ORDERED: INSULIN DETEMIR (LEVEMIR) 100 UNIT/ML SYR SQ SCH (19:47)
[2021-03-17] MEDS ORDERED: LACTULOSE 20 GM/30 ML CUP PO PRN (19:47)
--- NOTE | 2021-03-17 19:59 | P.HPIM ---
History of Present Illness H&P Date: 03/17/21 Chief Complaint: Malfunctioning dialysis catheter History of presenting complaint: This is a 75-year-old patient is@[facility]. Chronic stable medical conditions include CHF, end-stage kidney disease on hemodialysis TTS, atrial fibrillation, permanent pacemaker, GERD. COPD. Not too long ago was at [facility] following a head trauma.. At her baseline patient is AO 2. Recently admitted to the [facility] from February 14 through March 02.- Presented with short of breath. Blood cultures positive for Enterococcus faecalis. Pericardiocentesis done with 3 00 cc of bloody fluid removed. Pigtail catheter placed. Hemodialysis catheter removed because of infection. February 25: 1400 mL of turbid, colored left thoracentesis. February 26: right groin hemodialysis catheter placed. Patient is cared for Bennie Chávez who is the POA. When patient was discharged patient not doing too well. She was discharged with the understanding if she does not improve or goes downhill then she'll proceed towards hospice. Patient had been made DO NOT RESUSCITATE Readmitted from March 12 through March 13 , with femoral dialysis catheter got dislodged. Dr. Pearl, placed a dialysis cath in the right femoral. Now presents with malfunctioning of the right groin femoral hemodialysis catheter. Apparently hemodialysis could not be done. Sent to the ER. Patient is rather lethargic. Dr. Pearl from vascular surgery was consulted. This w ill be done tomorrow. Patient rather drowsy not able to give much of a history. Review of systems: Unable to obtain patient rather drowsy Past medical history to include: Atrial fibrillation, asthma, CHF, diabetes, DVT, GERD, hypertension, hyperlipidemia, osteomyelitis discitis, end-stage kidney disease with hemodialysis, TIA, permanent pacemaker, . Social history: No history of smoking or alcohol. Currently at resident of [facility] Family history: Rheumatic fever, [place] Physical examination: VITAL SIGNS: 98.4, 64, 20, 120/65, 100% on room air GENERAL: BMI 36.6, laying in bed, lethargic EYES: Pupils equal. Conjunctiva normal. HEENT: External appearance of nose and ears normal, oral cavity grossly normal. NECK: JVD unable to assess; masses not palpable. HEART: First and second heart sounds are normal; some edema. EXTREMITIES: Left wrist in a support, right groin hemodialysis catheter LUNGS:[ Respiratory rate normal, diminished breath sounds. ABDOMEN: Soft, nontender, liver spleen not palpable, no masses palpable. Right groin hemodialysis catheter PSYCH: Patient lethargic NEUROLOGICAL: Cranial nerves grossly intact; no facial asymmetry, power and sensation grossly intact. LYMPHATICS: No lymph nodes palpable in the axilla and neck Assessment and plan: -Malfunction of dialysis catheter Right femoral catheter to be replaced. [Hemodialysis catheter placed by Dr. Sharpe on March 11.] Hold eliquis today and tomorrow morning -Acute on chronic metabolic encephalopathy likely uremic from incomplete hemodialysis -Bacteremia Enterococcus faecalis. From hemodialysis catheter. Vancomycin. Hemodialysis catheter removed. Repeat blood culture from February 19 negative. Vancomycin course completed as of today. -End-stage kidney disease on hemodialysis, TTS Hemodialysis . Consult nephrology -Persistent atrial flutter fibrillation Hold eliquis for procedure -Diabetes mellitus type 2, chronically on insulin Follow Accu-Cheks. -Chronic hypotension Patient is on midodrine -Chronic medical debility -Underlying cognitive impairment -Permanent pacemaker -DO NOT RESUSCITATE -DPOA, Kamar Fajardoohan Care was discussed with Dr. Sharpe from vascular. Hold eliquis tonight. Other medications to continue. Consult nephrology for hemodialysis. Past Medical History Past Medical History: Atrial Fibrillation, Asthma, Heart Failure, CVA/TIA, Diabetes Mellitus, Deep Vein Thrombosis (DVT), GERD/Reflux, Hyperlipidemia, Hypertension, Osteoarthritis (OA), Renal Disease Additional Past Medical History / Comment(s): TIA 2018; HEMODIALYSIS //SATURDAY 0630-given ativan prior to dialysis History of Any Multi-Drug Resistant Organisms: MRSA Date of last positivie culture/infection: 05/12/20 MDRO Source:: MRSA URINE Past Surgical History: Adenoidectomy, Appendectomy, Cholecystectomy, Pacemaker, Tonsillectomy Past Anesthesia/Blood Transfusion Reactions: No Reported Reaction Type of Cardiac Device: Permanent Pacemaker Device Placement Date:: 2016 Past Psychological History: Anxiety, Depression Smoking Status: Never smoker Past Alcohol Use History: None Reported Past Drug Use History: None Reported - Past Family History Father Family Medical History: Myocardial Infarction ([place]) Additional Family Medical History / Comment(s): RHEUMATIC FEVER Medications and Allergies Home Medications Medication Instructions Recorded Confirmed Type Ezetimibe [Zetia] 10 mg PO HS@2100 12/22/1703/17/21 History Midodrine HCl [ProAmatine] 10 mg PO TUTHSA@0900 09/23/19 03/17/21 History Renvela Packet 0.8gm 0.8 gm PO ACHS@06,,,05/10/20 03/17/21 History Acetaminophen Tab [Tylenol] 650 mg PO TID@0900,1300,209902/14/21 03/17/21 History Cyanocobalamin (Vitamin B-12) 1,000 mcg PO DAILY@0902/14/21 03/17/21 History [Vitamin B-12] Renal-Melita Tab 0.8mg 1 tab PO DAILY@0900 02/14/21 03/17/21 History Lactulose [Cephulac] 20 gm PO DAILY PRN ml 03/02/21 03/17/21 Rx Albuterol Nebulized [Ventolin 2.5 mg INHALATION 03/11/21 03/17/21 History Nebulized] RT-QID@04,10,1599, Cinnamon Bark [Cinnamon] 2,000 mg PO DAILY@0903/11/21 03/17/21 History Famotidine [Pepcid] 20 mg PO DAILY@0903/11/21 03/17/21 History Insulin Glargine,Hum.rec.anlog 18 unit SQ DAILY@169903/11/21 03/17/21 History [Semglee Pen] LORazepam [Ativan] 1 mg PO HS@209903/11/21 03/17/21 History Sodium Bicarbonate Tab 650 mg PO TID@0900,1700,209903/11/21 03/17/21 History Apixaban [Eliquis] 2.5 mg PO BID@0900,1700 03/17/21 03/17/21 History LORazepam [Ativan] 0.25 mg PO BID PRN 03/17/21 03/17/21 History Nepro 240 ml PO DAILY@1400 03/17/21 03/17/21 History traMADol HCL 50 mg PO BID PRN 03/17/21 03/17/21 History traMADol HCL [Ultram] 50 mg PO BID@0900,2100 03/17/21 03/17/21 History Allergies Allergy/AdvReac Type Severity Reaction Status Date / Time lisinopril Allergy Itching Verified 03/17/21 14:55 Kbcadgx-For-Ito Reductase Allergy Itching Verified 03/17/21 14:55 Inhibitor Physical Exam Vitals: Vital Signs Temp Pulse Resp BP Pulse Ox 03/17/21 18:39 60 18 120/65 100 03/17/21 17:44 60 18 119/66 100 03/17/21 16:23 70 18 100/82 100 03/17/21 14:08 98.4 F 64 20 86/43 100 Intake and Output 03/17/21 03/17/21 03/17/21 06:59 14:59 22:59 Other: Weight 90.718 kg Results CBC & Chem 7: 03/17/21 15:28 03/17/21 15:28 Labs: Abnormal Lab Results - Last 24 Hours (Table) 03/17/21 03/17/21 Range/Units 15:28 15:28 WBC 12.2 H (3.8-10.6) k/uL RBC 2.44 L (3.80-5.40) m/uL Hgb 8.3 L (11.4-16.0) gm/dL Hct 27.3 L (34.0-46.0) % MCV 111.9 H (80.0-100.0) fL MCHC 30.5 L (31.0-37.0) g/dL Neutrophils # 10.1 H (1.3-7.7) k/uL Macrocytosis Marked A Sodium 133 L (137-145) mmol/L Chloride 96 L (98-107) mmol/L BUN 37 H (7-17) mg/dL Creatinine 4.97 H (0.52-1.04) mg/dL Glucose 270 H (74-99) mg/dL Total Protein 5.9 L (6.3-8.2) g/dL Albumin 3.1 L (3.5-5.0) g/dL
[2021-03-17 20:26] LABS: Glucose,Whole Blood 239 mg/dL (75-99)
[2021-03-17] MEDS ORDERED: EZETIMIBE 10 MG TAB PO SCH (21:00)
[2021-03-17] MEDS ORDERED: LORazepam 1 MG TAB PO SCH (21:00)
[2021-03-17 21:12] LABS: Glucose,Whole Blood 233 mg/dL (75-99)
[2021-03-17] MEDS: SODIUM BICARBONATE TAB 650 MG TAB PO SCH (21:50)
[2021-03-17] MEDS: traMADol 50 MG TAB PO SCH (21:50)
[2021-03-17] MEDS: SEVELAMER 800 MG TAB PO SCH (21:50)
[2021-03-17] MEDS: ACETAMINOPHEN TAB 325 MG TAB PO SCH (21:52)
[2021-03-17] MEDS ORDERED: ALBUTEROL NEBULIZED 2.5 MG/3 ML INHALATION SCH (22:00)
[2021-03-18] MEDS: SEVELAMER 800 MG TAB PO SCH (06:02)
[2021-03-18 07:23] LABS: Glucose,Whole Blood 182 mg/dL (75-99)
[2021-03-18] MEDS: ACETAMINOPHEN TAB 325 MG TAB PO SCH (07:34)
[2021-03-18] MEDS: SODIUM BICARBONATE TAB 650 MG TAB PO SCH (07:35)
[2021-03-18] MEDS: ALBUTEROL NEBULIZED 2.5 MG/3 ML INHALATION SCH ×2 (07:52→12:02)
[2021-03-18] MEDS: traMADol 50 MG TAB PO SCH (07:57)
[2021-03-18 08:04] VITALS: BP 108/65; RESP 16
[2021-03-18] MEDS ORDERED: ACETAMINOPHEN SUPPOSITORY 650 MG SUPP RECTAL PRN (08:14)
[2021-03-18] MEDS ORDERED: CYANOCOBALAMIN 500 MCG TAB PO SCH (09:00)
[2021-03-18] MEDS ORDERED: FAMOTIDINE 20 MG TAB PO SCH (09:00)
[2021-03-18] MEDS ORDERED: MIDODRINE 5 MG TAB PO SCH (09:00)
[2021-03-18] MEDS ORDERED: FOLIC ACID-VIT B COMPLEX-VIT C 1 CAP PO SCH (09:00)
--- NOTE | 2021-03-18 10:45 | P.NPCON ---
History of Present Illness - Reason for Consult Consult date: 03/18/21 end stage renal disease - Chief Complaint Malfunctioning right femoral permacath - History of Present Illness This is a 75-year-old female with ESRD on hemodialysis came in because of malfunctioning permacath on her right groin. She is a patient at [facility]. Since admission here though she has temperature 102. Patient is unable to give any history since confused. This is not new she has b een deteriorating over the last several months. I spoke to the Court the dialysis nurse who notes are not [facility] unit She is been a jail resident for about 2 years according to her boyfriend and power of trademark attorney Kamar was in the room when I examined her. She has had a computed history recent fall and 1 at jail's, jail was changed. The boyfriend is very unhappy with the care at the jail. Supposedly the catheter has been changed. And there has been some issues with a pacemaker which has cause central vein stenosis and the possibility of new catheters are somewhat difficult. Supposedly she also has bedsores although I could not examine her back Past Medical History Past Medical History: Atrial Fibrillation, Asthma, Heart Failure, CVA/TIA, Diabetes Mellitus, Deep Vein Thrombosis (DVT), GERD/Reflux, Hyperlipidemia, Hypertension, Osteoarthritis (OA), Renal Disease Additional Past Medical History / Comment(s): TIA 2018; HEMODIALYSIS //Saturday-given ativan prior to dialysis. History discussed w/ POA who states he is not sure about all of her history. History of Any Multi-Drug Resistant Organisms: MRSA Date of last positivie culture/infection: 05/12/20 MDRO Source:: MRSA URINE Past Surgical History: Adenoidectomy, Appendectomy, Cholecystectomy, Pacemaker, Tonsillectomy Past Anesthesia/Blood Transfusion Reactions: No Reported Reaction Type of Cardiac Device: Permanent Pacemaker Device Placement Date:: 2016 Past Psychological History: Anxiety, Depression Smoking Status: Never smoker Past Alcohol Use History: None Reported Past Drug Use History: None Reported - Past Family History Father Family Medical History: Myocardial Infarction ([place]) Additional Family Medical History / Comment(s): RHEUMATIC FEVER Medications and Allergies Home Medications Medication Instructions Recorded Confirmed Type Ezetimibe [Zetia] 10 mg PO HS@2100 12/22/17 03/17/21 History Midodrine HCl [ProAmatine] 10 mg PO TUTHSA@0900 09/23/19 03/17/21 History Renvela Packet 0.8gm 0.8 gm PO ACHS@06,11,,05/10/20 03/17/21 History Acetaminophen Tab [Tylenol] 650 mg PO TID@0900,1300,2100 02/14/21 03/17/21 History Cyanocobalamin (Vitamin B-12) 1,000 mcg PO DAILY@0900 02/14/21 03/17/21 History [Vitamin B-12] Renal-Melita Tab 0.8mg 1 tab PO DAILY@0900 02/14/21 03/17/21 History Lactulose [Cephulac] 20 gm PO DAILY PRN ml 03/02/21 03/17/21 Rx Albuterol Nebulized [Ventolin 2.5 mg INHALATION 03/11/21 03/17/21 History Nebulized] RT-QID@04,10,1599, Cinnamon Bark [Cinnamon] 2,000 mg PO DAILY@0900 03/11/21 03/17/21 History Famotidine [Pepcid] 20 mg PO DAILY@0900 03/11/21 03/17/21 History Insulin Glargine,Hum.rec.anlog 18 unit SQ DAILY@1700 03/11/21 03/17/21 History [Semglee Pen] LORazepam [Ativan] 1 mg PO HS@209903/11/21 03/17/21 History Sodium Bicarbonate Tab 650 mg PO TID@0900,1700,209903/11/21 03/17/21 History Apixaban [Eliquis] 2.5 mg PO BID@0900,1700 03/17/21 03/17/21 History LORazepam [Ativan] 0.25 mg PO BID PRN 03/17/21 03/17/21 History Nepro 240 ml PO DAILY@1400 03/17/21 03/17/21 History traMADol HCL 50 mg PO BID PRN 03/17/21 03/17/21 History traMADol HCL [Ultram] 50 mg PO BID@0900,2100 03/17/21 03/17/21 History Allergies Allergy/AdvReac Type Severity Reaction Status Date / Time lisinopril Allergy Itching Verified 03/17/21 14:55 Nwcomqm-Mzx-Udq Reductase Allergy Itching Verified 03/17/21 14:55 Inhibitor Physical Exam Vitals: Vital Signs Temp Pulse Pulse Resp BP BP Pulse Ox 03/18/21 08:04 64 03/18/21 07:53 64 03/18/21 07:00 102.8 F H 64 16 108/65 97 03/18/21 02:00 62 20 03/18/21 01:55 98.1 F 62 20 103/52 100 03/17/21 22:00 60 03/17/21 21:00 98.2 F 60 24 106/57 100 03/17/21 20:12 98.7 F 58 L 18 91/51 100 03/17/21 18:39 60 18 120/65 100 03/17/21 17:44 60 18 119/66 100 03/17/21 16:23 70 18 100/82 100 03/17/21 14:08 98.4 F 64 20 86/43 100 Intake and Output 03/17/21 03/18/21 03/18/21 22:59 06:59 14:59 Other: # Voids 1 # Bowel Movements 0 Weight 90.718 kg 92 kg On examination she is awake alert but confused and not making eye contacts or following commands. HEENT exam pupils are equal bilaterally and about 3 mm. Neck is somewhat stiff. No nodes noted no JVP noted No facial asymmetry noted Lungs are clear to auscultation with poor air entry Heart sounds unremarkable for any murmur rub gallop Abdomen soft nontender, no masses felt. Extremity exam reveals trace edema. Warm to touch. No rashes noted. Gangrene noted. Neurologically awake alert but disoriented confused somewhat restless. No focal motor deficit could be determined by exam because of lack of cooperation Results - Lab Results Most recent lab results Calcium 9.7 mg/dL (8.4-10.2) 03/17/21 15:28 03/17/21 15:28 03/17/21 15:28 Assessment and Plan Assessment: Impression 1. ESRD on dialysis Saturday at [facility] unit 2. Permacath right groin with fever which was recorded after admission at the time of admission. rule out sepsis 3. Admitted because of malfunctioning catheter in her right groin which is a pe rmacath recently placed 03/11/2021, reason for this was because the catheter having come out a few inches 4. Chronic jail resident bedridden for long time with a Mane left. Deteriorating mentally with disorientation chronically. 5. Diabetes mellitus unknown number of years 6. History of pleural effusions last Pap was 02/25/2021 7. Anemia hemoglobin is 8.3 rule out an deficiency 8. Hyponatremia sodium 133 unlikely to cause her any clinical symptoms. Etiology is ESRD and dilutional from water intake Recommendation 1. Discussed with her boyfriend Kamar regarding the fact that she needs antibiotics and the permacath may have to be removed after discussion with the vascular surgeon Dr. Pearl. She has difficulty with catheter insertion therefore he may had to try to salvage this catheter. Will give her IV antibiotics vancomycin and gentamicin. 2. Discussed with the boyfriend regarding recommendation from me for considering hospice. The reason for this is she is 75-year-old diabetic, with ESRD, a jail resident for about 2 years based on the boyfriend's h istory, bedridden and has had possibly dementia for the last several months. He will think about it. There is no urgent need for dialysis right now, given she has fever will have to make sure she has catheter free 48 hours and afebrile and covered with antibiotics before reinserting any catheter. We will see if we can instill TPA, Jenna in the dialysis unit at [place] Told me that that has already been done
[2021-03-18] MEDS ORDERED: VANCOMYCIN IV PER PHARMACY 1 EACH MISC MISCELLANE PRN (10:54)
[2021-03-18] MEDS ORDERED: GENTAMICIN PER PHARMACY MISCELLANE PRN (11:00)
[2021-03-18] MEDS ORDERED: VANCOMYCIN 1,500 MG in SODIUM CHLORIDE 0.9% 250 ML IVPB ONE (11:30)
[2021-03-18] MEDS ORDERED: GENTAMICIN 120 MG in SODIUM CHLORIDE 0.9% 100 ML IVPB ONE (12:00)
[2021-03-18 12:10] LABS: Glucose,Whole Blood 162 mg/dL (75-99)
[2021-03-18 12:12] VITALS: PULSE 64
[2021-03-18 12:53] VITALS: TEMP 99.1
--- NOTE | 2021-03-18 12:54 | CONS ---
CONSULTATION This is a 75-year-old female, well known to me from the past. The patient had multiple admissions with history of chronic renal failure. This patient had a pacemaker placed in the right side of the chest in the past. There was an attempt to place a pacemaker on the left side; could not . Patient had a dialysis catheter placed in the right IJ in the past x2. Her IJ is occluded distally. We placed a dialysis catheter via right femoral approach, which worked for some time then occluded. We have done more than 3 times permanent catheter placement via right femoral approach. The patient came again with a similar problem. The patient's catheter is not working. The patient is septic this time with her temperature 102. On exam today, the patient was seen in her room. Patient is confused. Neck is supple. No bruit appreciated. The patient has a pacemaker on the right side of the chest. Chest has crackles bilaterally. Abdomen is protuberant, nontender. The patient has a dialysis catheter, right femoral approach. The patient also has a sacral pressure ulcer. Discussed with Nephrology and Internal Medicine about the treatment. Nephrology has discussed with the high school guidance counselor who has power of trial attorney about hospice care. Also patient has been seen by Dr. Harman and he also recommended that the patient should be hospice because of recurrent catheter occlusion in the groin area, and patient has central stenosis. I agree with hospice care. The high school guidance counselor will decide and we will follow with you. MAYA / GODFREYN: [phone] /
--- NOTE | 2021-03-18 13:36 | P.DS ---
Providers Date of admission: 03/18/21 12:52 Expected date of discharge: 03/18/21 Attending physician: Cortez Harman Consults: 03/17/21 15:14 Consult Physician Urgent Consulting Provider: Onur Pearl Consult Reason/Comments: Dialysis catheter malfunction Do you want consulting provider notified?: Yes Consult Physician Urgent Consulting Provider: Darshan Almonte Consult Reason/Comments: esrf on hd Do you want consulting provider notified?: Yes 03/18/21 08:09 Consult Physician Urgent Consulting Provider: Ashley Win Consult Reason/Comments: fever, elevated WBC Do you want consulting provider notified?: Yes Primary care physician: Jp Brooks [facility] Course: Chief Complaint: Malfunctioning dialysis catheter History of presenting complaint: This is a 75-year-old patient is@[facility]. Chronic stable medical conditions include CHF, end-stage kidney disease on hemodialysis TTS, atrial fibrillation, permanent pacemaker, GERD. COPD. Not too long ago was at [facility] following a head trauma.. At her baseline patient is AO 2. Recently admitted to the [facility] from February 14 through March 02.- Presented with short of breath. Blood cultures positive for Enterococcus faecalis. Pericardiocentesis done with 3 00 cc of bloody fluid removed. Pigtail catheter placed. Hemodialysis catheter removed because of infection. February 25: 1400 mL of turbid, colored left thoracentesis. February 26: right groin hemodialysis catheter placed. Patient is cared for Bennie Chávez who is the POA. When patient was discharged patient not doing too well. She was discharged with the understanding if she does not improve or goes downhill then she'll proceed towards hospice. Patient had been made DO NOT RESUSCITATE Readmitted from March 12 through March 13 , with femoral dialysis catheter got dislodged. Dr. Pearl, placed a dialysis cath in the right femoral. Now presents with malfunctioning of the right groin femoral hemodialysis catheter. Apparently hemodialysis could not be done. Sent to the ER. Patient is rather lethargic. Dr. Pearl from vascular surgery was consulted. This katarina l be done tomorrow. Patient rather drowsy not able to give much of a history. March 18: Overnight patient became febrile. Septic. Delirious. Continues to be doing poorly. Morning groaning. Spoke to Dr. Sharpe from vascular. Very difficult for access. Initially cultures, vancomycin antibiotics ordered. ID consult was ordered. Late in the morning spoke to patient's POAKamar. Has agreed to proceed with hospice. Spoke to the nurse. Plan referral to patient go back to her ECF with hospice Discussion and discharge planning more than 35 minutes Consultation: Nephrology Dr. Sharpe from vascular Past medical history to include: Atrial fibrillation, asthma, CHF, diabetes, DVT, GERD, hypertension, hyperlipidemia, osteomyelitis discitis, end-stage kidney disease with hemodialysis, TIA, permanent pacemaker, . Social history: No history of smoking or alcohol. Currently at [facility] Family history: Rheumatic fever, [place] Physical examination: VITAL SIGNS: 12.8, 64, 16, 108/65, 97% on 2 L GENERAL: BMI 36.6, laying in bed, a bit restless EYES: Pupils equal. Conjunctiva normal. HEENT: External appearance of nose and ears normal, oral cavity grossly normal. NECK: JVD unable to assess; masses not palpable. HEART: First and second heart sounds are normal; some edema. EXTREMITIES: Left wrist in a support, right groin hemodialysis catheter LUNGS:[ Respiratory rate normal, diminished breath sounds. ABDOMEN: Soft, nontender, liver spleen not palpable, no masses palpable. Right groin hemodialysis catheter PSYCH: Patient lethargic NEUROLOGICAL: Cranial nerves grossly intact; no facial asymmetry, power and sensation grossly intact. Assessment and plan: -Sepsis. Cause unknown. Could be from dialysis catheter. Other sites to be evaluated. -Malfunction of dialysis catheter Right femoral catheter to be replaced. [Hemodialysis catheter placed by Dr. Sharpe on March 11.] Hold eliquis today and tomorrow morning -Acute on chronic metabolic encephalopathy likely uremic from incomplete hemodialysis -Bacteremia Enterococcus faecalis. From hemodialysis catheter. Vancomycin. Hemodialysis catheter removed. Repeat blood culture from February 19 negative. Vancomycin course completed as of today. -End-stage kidney disease on hemodialysis, TTS Hemodialysis . Consult nephrology -Persistent atrial flutter fibrillation Hold eliquis for procedure -Diabetes mellitus type 2, chronically on insulin Follow Accu-Cheks. -Chronic hypotension Patient is on midodrine -Chronic medical debility -Underlying cognitive impairment -Permanent pacemaker -DO NOT RESUSCITATE -Kamar JORDAN Disposition: [facility] with hospice Advanced care planning: Discussed with Kamar. He understands patient doing poorly. Very difficult for dialysis access. We have talked last admission about possible hospice if things didn't go well. He agrees to stop medications keep the patient comfortable. Patient to return to our to work [place] and hospice will be initiated there. Questions were answered. Prognosis poor Time spent for a ACP 20 minutes Patient Condition at Discharge: Poor Plan - Discharge Summary Discharge Rx Participant: No New Discharge Prescriptions: New Acetaminophen Suppository [Tylenol Suppository] 650 mg RECTAL Q6HR PRN supp PRN Reason: Fever And/ Or Pain Continue Ezetimibe [Zetia] 10 mg PO HS@2100 Renvela Packet 0.8gm 0.8 gm PO ACHS@,,, Acetaminophen Tab [Tylenol] 650 mg PO TID@0900,1300,2100 Lactulose [Cephulac] 20 gm PO DAILY PRN ml PRN Reason: Constipation Famotidine [Pepcid] 20 mg PO DAILY@0900 Albuterol Nebulized [Ventolin Nebulized] 2.5 mg INHALATION RT- QID@04,10,1599,22 Renal-Melita Tab 0.8mg 1 tab PO DAILY@0900 Cyanocobalamin (Vitamin B-12) [Vitamin B-12] 1,000 mcg PO DAILY@0900 Insulin Glargine,Hum.rec.anlog [Semglee Pen] 18 unit SQ DAILY@1700 Apixaban [Eliquis] 2.5 mg PO BID@0900,1700 Nepro 240 ml PO DAILY@1400 LORazepam [Ativan] 1 mg PO HS@2100 #3 tab LORazepam [Ativan] 0.25 mg PO BID PRN #6 tab PRN Reason: Anxiety Changed traMADol HCL [Ultram] 50 mg PO BID@0900,2100 #6 tab Discontinued Midodrine HCl [ProAmatine] 10 mg PO TUTHSA@0900 Cinnamon Bark [Cinnamon] 2,000 mg PO DAILY@0900 Sodium Bicarbonate Tab 650 mg PO TID@0900,1700,2100 traMADol HCL 50 mg PO BID PRN PRN Reason: Pain Discharge Medication List Ezetimibe [Zetia] 10 mg PO HS@2100 12/22/17 [History] Renvela Packet 0.8gm 0.8 gm PO ACHS@,11,16,21 05/10/20 [History] Acetaminophen Tab [Tylenol] 650 mg PO TID@0900,1300,2100 02/14/21 [History] Cyanocobalamin (Vitamin B-12) [Vitamin B-12] 1,000 mcg PO DAILY@0900 02/14/21 [History] Renal-Melita Tab 0.8mg 1 tab PO DAILY@0900 02/14/21 [History] Lactulose [Cephulac] 20 gm PO DAILY PRN ml 03/02/21 [Rx] Albuterol Nebulized [Ventolin Nebulized] 2.5 mg INHALATION RT-QID@04,10,1600,22 03/11/21 [History] Famotidine [Pepcid] 20 mg PO DAILY@0900 03/11/21 [History] Insulin Glargine,Hum.rec.anlog [Semglee Pen] 18 unit SQ DAILY@1700 03/11/21 [History] Apixaban [Eliquis] 2.5 mg PO BID@0900,1700 03/17/21 [History] Nepro 240 ml PO DAILY@1400 03/17/21 [History] Acetaminophen Suppository [Tylenol Suppository] 650 mg RECTAL Q6HR PRN supp 03/18/21 [Rx] LORazepam [Ativan] 0.25 mg PO BID PRN #6 tab 03/18/21 [Rx] LORazepam [Ativan] 1 mg PO HS@2100 #3 tab 03/18/21 [Rx] traMADol HCL [Ultram] 50 mg PO BID@0900,2100 #6 tab 03/18/21 [Rx] Follow up Appointment(s)/Referral(s): Jp Brooks MD [Primary Care Provider] - 1-2 days Discharge Disposition: [facility]
[2021-03-18] MEDS ORDERED: NON FORMULARY DRUG (Nepro 1 CAN Liquid) PO SCH (14:00)
[2021-03-18 22:41] LABS: African American GFR (CKD) 8.4 (60.0-200.0); Anion Gap 20.5 mmol/L (4.00-12.00); BUN/Creat Ratio 7.96 Ratio (12.00-20.00); Calcium 8.6 mg/dL (8.7-10.3); Carbon Dioxide 20.5 mmol/L (21.6-31.8); Non-African American GFR(CKD) 7.3 (60.0-200.0); Potassium 5.3 mmol/L (3.5-5.5)
[2021-03-19] MEDS ORDERED: VANCOMYCIN 1,500 MG in SODIUM CHLORIDE 0.9% 250 ML IVPB ONE (12:00)
[2021-03-19] MEDS ORDERED: APIXABAN 2.5 MG TABLET PO SCH (21:00)
== END 2021-03-18 14:50 | disposition hospice, inpatient (51) | DRG 871 ==
LOC: EC 14:04 → 6NMEDSUR 16:06 → OBSVTOIN 03-18 12:52
PROVIDERS: ADMIT Hospitalist; ATTEND Hospitalist
DX: A41.81 Sepsis due to Enterococcus (principal); N18.6 End stage renal disease; G93.41 Metabolic encephalopathy; I13.2 Hypertensive heart and chronic kidney disease with heart failure and with stage 5 chronic kidney disease, or end stage renal disease; I48.92 Unspecified atrial flutter; I48.19 Other persistent atrial fibrillation; I87.1 Compression of vein; T82.41XA Breakdown (mechanical) of vascular dialysis catheter, initial encounter; I50.9 Heart failure, unspecified; D63.1 Anemia in chronic kidney disease; Z99.2 Dependence on renal dialysis; E11.22 Type 2 diabetes mellitus with diabetic chronic kidney disease; E78.5 Hyperlipidemia, unspecified; F32.9 Major depressive disorder, single episode, unspecified; F41.9 Anxiety disorder, unspecified; J44.9 Chronic obstructive pulmonary disease, unspecified; Z79.01 Long term (current) use of anticoagulants; R53.81 Other malaise; I95.89 Other hypotension; K21.9 Gastro-esophageal reflux disease without esophagitis; L89.152 Pressure ulcer of sacral region, stage 2; Y71.2 Prosthetic and other implants, materials and accessory cardiovascular devices associated with adverse incidents; Z51.5 Encounter for palliative care; Z66 Do not resuscitate; Z74.01 Bed confinement status; Z79.899 Other long term (current) drug therapy; Z82.49 Family history of ischemic heart disease and other diseases of the circulatory system; Z86.73 Personal history of transient ischemic attack (TIA), and cerebral infarction without residual deficits; Z95.0 Presence of cardiac pacemaker
CPT/HCPCS: 36415; 80048; 80053; 83605; 85025; 85610; 85730; 94640; 99285